=== PATIENT | female | born 1955 | race Caucasian/White ===

== ENCOUNTER 2016-09-24 14:16 | Outpatient (CLI) | payer MEDICARE | END 2016-09-24 14:17 | disposition critical access hospital (66) | DX: M54.9 Dorsalgia, unspecified (principal) | CPT/HCPCS: A0425; A0429 ==

== ENCOUNTER 2016-09-24 14:31 | Emergency (ER) | payer MEDICARE ==
[2016-09-24] MEDS ORDERED: HYDROmorphone 1 MG/ML SYRINGE IVP STA ×2 (14:39→16:25)
[2016-09-24] MEDS ORDERED: diazePAM INJ 5 MG/ML SYRINGE IVP STA (14:39)
[2016-09-24] MEDS ORDERED: HYDROmorphone 1 MG/ML SYRINGE ONE ×2 (14:46→16:41)
[2016-09-24] MEDS ORDERED: diazePAM INJ 5 MG/ML SYRINGE ONE (14:46)
[2016-09-24] MEDS ORDERED: LIDOCAINE PATCH 5% TOP STA (15:38)
[2016-09-24] MEDS ORDERED: DEXAMETHASONE 10 MG/ML VIAL IVP STA (15:38)
[2016-09-24] MEDS ORDERED: DEXAMETHASONE 10 MG/ML VIAL ONE (15:39)
[2016-09-24] MEDS ORDERED: LIDOCAINE PATCH 5% TOP ONE (15:39)
== END 2016-09-24 18:06 | disposition home or self-care (01) ==
DX: M54.5 Low back pain (principal); M06.9 Rheumatoid arthritis, unspecified; M19.90 Unspecified osteoarthritis, unspecified site; I11.0 Hypertensive heart disease with heart failure; I50.9 Heart failure, unspecified; Z87.891 Personal history of nicotine dependence; Z79.82 Long term (current) use of aspirin; Z66 Do not resuscitate
CPT/HCPCS: 96374; 96375; 96376; 99283; 99284; A9270; J1170

== ENCOUNTER 2016-10-18 01:16 | Outpatient (CLI) | payer MEDICARE | END 2016-10-18 01:17 | disposition home or self-care (01) | DX: M54.5 Low back pain (principal) | CPT/HCPCS: A0425; A0429 ==

== ENCOUNTER 2016-10-18 01:28 | Emergency (ER) | payer MEDICARE ==
[2016-10-18] MEDS ORDERED: oxyCOD/ACETAMIN 5 MG/325 MG TABLET PO STA (01:43)
[2016-10-18] MEDS ORDERED: KETOROLAC 60 MG/2 ML VIAL IM STA (01:43)
[2016-10-18] MEDS ORDERED: DEXAMETHASONE 10 MG/ML VIAL PO STA (01:43)
[2016-10-18] MEDS ORDERED: CYCLOBENZAPRINE 10 MG TABLET PO STA (01:43)
[2016-10-18] MEDS ORDERED: ONDANSETRON ODT 4 MG TABLET TL STA (01:45)
[2016-10-18] MEDS ORDERED: KETOROLAC 60 MG/2 ML VIAL ONE (01:47)
[2016-10-18] MEDS ORDERED: DEXAMETHASONE 10 MG/ML VIAL ONE (01:47)
[2016-10-18] MEDS ORDERED: oxyCOD/ACETAMIN 5 MG/325 MG TABLET PO ONE (01:47)
[2016-10-18] MEDS ORDERED: CHERRY SYRUP 10 ML UDC PO ONE (01:47)
[2016-10-18] MEDS ORDERED: ONDANSETRON ODT 4 MG TABLET ONE (01:47)
[2016-10-18] MEDS ORDERED: diazePAM 5 MG TABLET PO STA (01:49)
[2016-10-18] MEDS ORDERED: diazePAM 5 MG TABLET PO ONE (02:04)
[2016-10-18] MEDS ORDERED: LIDOCAINE PATCH 5% TOP STA (02:12)
[2016-10-18] MEDS ORDERED: LIDOCAINE PATCH 5% TOP ONE (02:14)
--- NOTE | 2016-10-18 03:02 | ED Physician Documentation ---
PD HPI BACK PAIN - Stated complaint Stated Complaint: BACK PX - Chief complaint Chief Complaint: Back Pain - History obtained from History obtained from: Patient, EMS - History of Present Illness Timing - onset: Chronic Timing - details: Gradual onset, Still present Quality: Pain, Spasm, Aching, Similar to prior episodes Associated symptoms: No: Fever, Weakness, Incontinent of urine, Unable to urinate, Incontinent of stool Improves with: Position, Meds Worsened by: Movement, Lifting, Twisting, Palpation Contributing factors: Out of meds Similar symptoms before: Work up / diagnostics, Treatment, Follow up Recently seen: Not recently seen - Additional information Additional information: Patient is a 61 year old female with multi year history of chronic back pain who is presenting to the emergency department for an exacerbation of her pain. patient states that she was fired by her pmd and she has been able Review of Systems Constitutional: denies: Fever, Chills Eyes: denies: Decreased vision, Photophobia Ears: denies: Ear pain, Drainage/discharge Nose: denies: Rhinorrhea / runny nose, Congestion Throat: denies: Dental pain / toothache, Oral lesions / sores Cardiac: denies: Chest pain / pressure Respiratory: denies: Cough, Wheezing GI: denies: Abdominal Pain, Nausea, Vomiting, Constipation, Diarrhea : denies: Dysuria, Frequency, Hesitancy, Unable to Void, Incontinent Skin: denies: Rash, Lesions, Abrasion (s) Musculoskeletal: reports: Extremity pain, Joint pain Neurologic: reports: Focal weakness, Numbness Psychiatric: reports: Depressed, Anxiety Immunocompromised: denies: Immunocompromised PD PAST MEDICAL HISTORY - Past Medical History Cardiovascular: Congestive heart failure, Hypertension Respiratory: Other Neuro: None, Other Endocrine/Autoimmune: None GI: GERD, Colon polyps, Chronic diarrhea, Other : Incontinence HEENT: Chronic sinusitis Psych: Depression Musculoskeletal: Osteoarthritis - Past Surgical History Past Surgical History: Yes General: Cholecystectomy, Appendectomy, Bowel surgery, Other Ortho: Knee replacement /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, Oophrectomy Cardiovascular: Cardiac catheterization HEENT: Tonsil/Adenoidectomy - Present Medications Home Medications: Ambulatory Orders Medication Instructions Recorded Confirmed Alprazolam 0.5 mg PO HS 05/29/13 10/18/16 Aspirin [Aspirin EC] 650 mg PO TID 05/29/13 10/18/16 Cholecalciferol (Vitamin D3) 1,000 unit PO HS 05/29/13 10/18/16 [Vitamin D3] FLUoxetine [PROzac] 20 mg PO DAILY 05/29/13 10/18/16 Furosemide [Lasix] 40 mg PO DAILY PRN 05/29/13 10/18/16 Metoprolol Tartrate 50 mg PO DAILY 05/29/13 10/18/16 Metoprolol Tartrate 100 mg PO HS 05/29/13 10/18/16 Potassium Chloride 20 meq PO DAILY PRN 05/29/13 10/18/16 Sulfasalazine [Sulfazine] 1,500 mg PO BID 05/29/13 10/18/16 Vitamin B Complex 1 each PO DAILY 05/29/13 10/18/16 predniSONE [Deltasone] 5 mg PO DAILY 05/29/13 10/18/16 Esomeprazole Magnesium [Nexium] 40 mg PO DAILY 05/01/14 10/18/16 Lactobacillus Acidophilus 1 each PO DAILY 05/01/14 10/18/16 [Probiotic] diphenhydrAMINE [Benadryl] 25 mg PO HS 05/01/14 10/18/16 Fluticasone 220 Mcg [Flovent] 1 spray IH DAILY 08/07/14 10/18/16 Hydroxyzine HCl 25 mg PO QID 08/07/14 10/18/16 Mupirocin 2% Oint [Bactroban 2% 1 applic TOP BID 08/07/14 10/18/16 Oint] Nystatin 1 each TOP DAILY 08/07/14 10/18/16 Zinc 50 mg PO BID 08/07/14 10/18/16 Lidocaine Patch 5% [Lidoderm Patch] 1 each TOP DAILY #20 patch 09/24/16 10/18/16 Pramipexole [Mirapex] 0.25 mg PO HS #30 tablet 09/24/16 10/18/16 diazePAM [Valium] 5 mg PO TID PRN #15 tablet 09/24/16 10/18/16 Esomeprazole Magnesium [Nexium] 20 mg PO DAILY #30 capsule. 10/18/16 Hydrocodone/Acetaminophen 1 - 2 each PO Q6H PRN #14 tablet 10/18/16 [Hydrocodon-Acetaminophen 5-325] - Allergies Allergies/Adverse Reactions: Allergies Allergy/AdvReac Type Severity Reaction Status Date / Time droperidol [From Inapsine] Allergy Severe EPS Verified 10/18/16 01:38 ibuprofen [From Motrin] Allergy Severe Anaphylaxis Verified 10/18/16 01:38 peanut Allergy Severe Anaphylaxis Verified 10/18/16 01:38 shellfish derived Allergy Severe Anaphylaxis Verified 10/18/16 01:38 Kaupebl-Tnr-Ieh Reductase Allergy Severe muscle pain Verified 10/18/16 01:38 Inhibitor amoxicillin [Amoxicillin] Allergy Intermediate Hives Verified 10/18/16 01:38 cefazolin Allergy Intermediate Hives Verified 10/18/16 01:38 Cephalosporins Allergy Intermediate Hives Verified 10/18/16 01:38 clindamycin Allergy Intermediate Hives Verified 10/18/16 01:38 cyclobenzaprine Allergy Intermediate Hives/night Verified 10/18/16 01:38 [Cyclobenzaprine] castaneda erythromycin base Allergy Intermediate Hives Verified 10/18/16 01:38 [Erythromycin Base] potassium clavulanate * Allergy Intermediate Hives Verified 10/18/16 01:38 [From Augmentin] ketorolac tromethamine * Allergy Anaphylaxis Verified 10/18/16 01:49 [From Toradol] duloxetine AdvReac Severe Suicidal Verified 10/18/16 01:38 etanercept [From Enbrel] AdvReac Severe Nausea/vomm Verified 10/18/16 01:38 iting/cramp s methotrexate AdvReac Severe N/V/Cramps Verified 10/18/16 01:38 NSAIDS (Non-Steroidal AdvReac Severe N/V/Cramps Verified 10/18/16 01:38 Anti-Inflamma prochlorperazine AdvReac Severe EPS Verified 10/18/16 01:38 pseudoephedrine AdvReac Severe Tachycardia Verified 10/18/16 01:38 sumatriptan AdvReac Severe Widened QRS Verified 10/18/16 01:38 doxycycline AdvReac Intermediate Hives Verified 10/18/16 01:38 gabapentin AdvReac Intermediate Gait Verified 10/18/16 01:38 disturbance latex AdvReac Intermediate Sensitivity Verified 10/18/16 01:38 Tape AdvReac Severe Blisters Uncoded 10/18/16 01:38 - Social History Does the pt smoke?: No Smoking Status: Former smoker Does the pt drink ETOH?: Yes Does the pt have substance abuse?: No - Immunizations Immunizations are current?: Yes - POLST Patient has POLST: Yes POLST Status: DNR PD ED PE NORMAL - Vitals Vital signs reviewed: Yes - General General: Alert and oriented X 3 - HEENT HEENT: Atraumatic, PERRL, Pharynx benign - Neck Neck: Supple, no meningeal sign, No bony TTP, No JVD - Respiratory Respiratory: No respiratory distress - Derm Derm: Normal color, Warm and dry, No rash PD ED PE EXPANDED - General General: Alert, Disheveled, poorly kept, Anxious, In Pain - Back Back: Soft tissue tenderness - Neuro Neuro: Other (no saddle numbness, patient able to ambulate with some pain, patient states that sensation is decreased and that she has intermittent numbness). No: Aphasia, Dysarthria - Psych Psych: Tearful, Anxious Results - Vitals Vitals: Vital Signs - 24 hr 10/18/16 10/18/16 10/18/16 01:33 01:36 02:24 Temperature 36.4 C L Heart Rate 81 87 Respiratory 18 18 Rate Blood Pressure 127/91 H 107/58 L O2 Saturation 98 94 10/18/16 03:59 Temperature Heart Rate 84 Respiratory 18 Rate Blood Pressure 146/82 H O2 Saturation 97 Oxygen O2 Source [Without Activity] Room air O2 Source Room air - Rads (name of study) ct lumbar spine Radiology: Final report received (no acute fracture or dislocation, foraminal stenosis), See rad report PD MEDICAL DECISION MAKING - ED course Complexity details: reviewed old records, reviewed results, re-evaluated patient , considered differential, d/w patient ED course: Patient was seen and examined at bedside. Patient was tearful and reported that she was having recurrent numbness in her right leg. Patient was treated with percocet, valium, decadron and zofran. Patient reported that her pain was not improving. Patient was treated with a lidocaine patch. Patient reported a persistence of pain. Due to the persistence and neurological findings CT was ordered. When patient returned the results were reviewed. there were no acute findings but patient did have foraminal stenosis. Patient was able to ambulate , and required no further inpatient management. Patient was stable for discharge with outpatient follow up. Departure - Departure Disposition: Home, Self Care Clinical Impression: Back pain, Foraminal stenosis of lumbosacral region Condition: Good Instructions: ED Chronic Pain Management Follow-Up: primary,care provider [Other] - Within 3 Days (call tomorrow to schedule a follow up appointment) Prescriptions: Hydrocodone/Acetaminophen [Hydrocodon-Acetaminophen 5-325] 1 - 2 each PO Q6H PRN #14 tablet PRN Reason: pain Esomeprazole Magnesium [Nexium] 20 mg PO DAILY #30 capsule. Comments: Your pain in part is being caused by foraminal stenosis. there is no specific treatment for it. You will need to continue with pain management and physical therapy. You should call your doctor's office on thursday to see if you can move up your appointment. You will eventually need to see pain management and possibly spine physician. You have been prescribed a few percocets for breakthrough pain. You should not take it with any other sedatives, you cannot drive on it or operate heavy machinery. You may return to the emergency department for new, worsening or uncontrollable symptoms.
--- NOTE | 2016-10-18 04:16 | CT Preliminary Report ---
Exam: CT Lumbar Spine W/O IMPRESSION: 1. No acute fracture or dislocation seen. 2. Minimal lumbar dextroscoliosis with grade 1 degenerative spondylolisthesis at L4-L5. 3. Bilateral foraminal stenosis at L3-L4. Right foraminal stenosis at L4-L5. [facility] SITE ID: [id number]
--- NOTE | 2016-10-18 04:19 | CT Report ---
EXAM: CT LUMBAR SPINE WITHOUT CONTRAST EXAM DATE: 10/18/2016 03:59 AM. CLINICAL HISTORY: Low back pain, right sided weakness. COMPARISONS: 08/07/2006. TECHNIQUE: Thin-section axial images were acquired of the lumbar spine without contrast. Post-process ing: Coronal and sagittal reformats. Other: None. In accordance with CT protocol optimization, one or more of the following dose reduction techniques w ere utilized for this exam: automated exposure control, adjustment of mA and/or KV based on patient s ize, or use of iterative reconstructive technique. FINDINGS: Alignment: Mild lumbar dextroscoliosis. Grade 1 degenerative spondylolisthesis at L4-L5. Bones: Five bvz-ocr-svkmynb lumbar vertebral bodies are present. Osteopenia. No acute fracture seen. Disk Levels/Facets: The height of the disk spaces is relatively well preserved. Degenerative joint disease is seen in the facet joints, most severe from L3-S1. There is right foraminal stenosis at L3-L4 and L4-L5. Left for aminal stenosis is seen at L3-L4. Other: The visualized pelvic cavity is unremarkable. IMPRESSION: 1. No acute fracture or dislocation seen. 2. Minimal lumbar dextroscoliosis with grade 1 degenerative spondylolisthesis at L4-L5. 3. Bilateral foraminal stenosis at L3-L4. Right foraminal stenosis at L4-L5. [facility] Referring Provider Line: [phone] SITE ID: [id number]
[2016-10-18 04:57] VITALS: BP 133/80
== END 2016-10-18 04:57 | disposition home or self-care (01) ==
LOC: EDUNIT# → ED 01:28
DX: M48.07 Spinal stenosis, lumbosacral region (principal); M47.897 Other spondylosis, lumbosacral region; M43.16 Spondylolisthesis, lumbar region; I11.0 Hypertensive heart disease with heart failure; I50.9 Heart failure, unspecified; Z87.891 Personal history of nicotine dependence; Z79.82 Long term (current) use of aspirin; Z66 Do not resuscitate
CPT/HCPCS: 72131; 99283; 99284; A9270; Q0162

== ENCOUNTER 2016-11-04 09:44 | Outpatient (CLI) | payer MEDICARE ==
[2016-11-04 12:54] LABS: BASOPHILS # (AUTO) 0.1 10^3/uL (0.0-0.1); BASOPHILS % (AUTO) 0.8 %; EOSINOPHILS # (AUTO) 0.2 10^3/uL (0.0-0.7); EOSINOPHILS % (AUTO) 1.6 %; HCT - HEMATOCRIT 41.3 % (37.0-47.0); HGB - HEMOGLOBIN 13.5 g/dL (12.0-16.0); LYMPHOCYTES # (AUTO) 2.2 10^3/uL (1.5-3.5); LYMPHOCYTES % (AUTO) 20.3 %; MEAN CORPUSCULAR HEMOGLOBIN 27.1 pg (27.0-31.0); MEAN CORPUSCULAR HGB CONC 32.6 g/dL (32.0-36.0); MEAN CORPUSCULAR VOLUME 83.2 fL (81.0-99.0); MEAN PLATELET VOLUME 8.6 fL (7.9-10.8); MONOCYTES # (AUTO) 0.8 10^3/uL (0.0-1.0); MONOCYTES % (AUTO) 7.7 %; NEUTROPHILS # (AUTO) 7.5 10^3/uL (1.5-6.6); NEUTROPHILS % (AUTO) 69.6 %; RED BLOOD COUNT 4.97 10^6/uL (4.20-5.40); RED CELL DISTRIBUTION WIDTH 19.7 % (12.0-15.0); UNCORRECTED WHITE BLOOD COUNT 10.8 x10^3/uL; WHITE BLOOD COUNT 10.8 x10^3/uL (4.8-10.8)
[2016-11-04 13:15] LABS: HEMOGLOBIN A1C 0.81 g/dL
[2016-11-04 13:25] LABS: ALBUMIN/GLOBULIN RATIO 1.2 (1.0-2.2); BILIRUBIN,TOTAL 0.3 mg/dL (0.2-1.0); BUN - BLOOD UREA NITROGEN 8 mg/dL (6-20); CALCIUM 8.3 mg/dL (8.5-10.3); CARBON DIOXIDE - CO2 29 mmol/L (21-32); CHLORIDE 99 mmol/L (101-111); CHOL/HDL RATIO 8.1 (<4.4); CHOLESTEROL 250 mg/dL; CREATININE 0.6 mg/dL (0.4-1.0); GFR - MDRD 102 (>89); GLUCOSE 136 mg/dL (70-100); HDL CHOLESTEROL 31 mg/dL; IRON 25 ug/dL (28-170); LDL/HDL RATIO 4.5 (<4.4); POTASSIUM 3.1 mmol/L (3.5-5.0); SODIUM 140 mmol/L (135-145); TOTAL IRON BINDING CAPACITY 437 ug/dL (250-450); TOTAL PROTEIN 6.1 g/dL (6.7-8.2); TRANSFERRIN 312 mg/dL (192-382); TRIGLYCERIDES 399 mg/dL; VLDL CHOLESTEROL 80 mg/dL
[2016-11-04 13:29] LABS: FERRITIN 20.5 ng/mL (11.0-306.8)
[2016-11-04 13:42] LABS: THYROID STIMULATING HORMONE 1.7 uIU/mL (0.34-5.60)
== END 2016-11-04 09:45 | disposition home or self-care (01) ==
LOC: LAB.WCP 09:44
PROVIDERS: ATTEND Family Medicine
DX: Z79.52 Long term (current) use of systemic steroids (principal); I10 Essential (primary) hypertension; G89.4 Chronic pain syndrome; D50.9 Iron deficiency anemia, unspecified; I49.3 Ventricular premature depolarization
CPT/HCPCS: 36415; 80053; 80061; 80306; 82607; 82728; 83036; 83540; 84443; 84466; 85025

== ENCOUNTER 2016-11-06 11:38 | Outpatient (CLI) | payer MEDICARE ==
--- NOTE | 2016-11-11 17:05 | Mammography Report ---
DIGITAL SCREENING MAMMOGRAM: 11/06/2016 CLINICAL INDICATION: A 61-year-old nulliparous patient with history of benign biopsy for screening. COMPARISON: 11/2014, 09/2013, 08/2011, 09/2008. TECHNIQUE: Routine CC and MLO projections were obtained of the breasts. FINDINGS: The breasts again demonstrate scattered fibroglandular densities bilaterally. Postoperati ve changes in the left lower inner quadrant are stable. Coarse and punctate, typically benign calcif ications are present. No suspicious masses, clustered microcalcifications, or regions of architectur al distortion are identified. IMPRESSION: BENIGN FINDINGS. RECOMMENDATION: Routine annual screening unless otherwise clinically indicated. BI-RADS category 2, benign findings. STANDARD QUALIFYING STATEMENTS 1. This examination was reviewed with the aid of Computer-Aided Detection (CAD). 2. A negative or benign imaging report should not delay biopsy if clinically suspicious findings are present. Consider surgical consultation if warranted. More than 5% of cancers are not identified by i maging. 3. Dense breasts may obscure an underlying neoplasm. JOB #: [id number] EXT JOB #:[id number]
== END 2016-11-06 11:39 | disposition home or self-care (01) ==
LOC: DI 11:38
PROVIDERS: ATTEND Family Medicine
DX: Z12.31 Encounter for screening mammogram for malignant neoplasm of breast (principal)
CPT/HCPCS: 77067

== ENCOUNTER 2016-11-18 18:58 | Outpatient (CLI) | payer MEDICARE ==
--- NOTE | 2016-11-19 09:08 | Ultrasound Report ---
RIGHT UPPER QUADRANT ULTRASOUND: 11/18/2016 CLINICAL INDICATION: Right upper quadrant pain. TECHNIQUE: Real-time scanning was performed with access service representative static images obtained. FINDINGS: The liver measures 18.8 cm. Hepatic echogenicity is increased, compatible with fatty infi ltration. No focal parenchymal lesion or intrahepatic biliary dilatation is seen. The common bile d uct measures 6 mm. The patient is status post cholecystectomy. The right kidney measures 12.2 cm, a nd demonstrates no hydronephrosis. No free fluid is seen. IMPRESSION: FATTY INFILTRATION OF THE LIVER. NO EVIDENCE OF BILIARY OBSTRUCTION. JOB #: [id number] EXT JOB #:[id number]
== END 2016-11-18 18:59 | disposition home or self-care (01) ==
LOC: DI 18:58
PROVIDERS: ATTEND Family Medicine
DX: K76.0 Fatty (change of) liver, not elsewhere classified (principal)
CPT/HCPCS: 76705

== ENCOUNTER 2016-11-20 10:11 | Outpatient (CLI) | payer MEDICARE ==
--- NOTE | 2016-11-20 16:19 | DEXA Report ---
DEXA SCAN: 11/20/2016 CLINICAL INDICATION: Postmenopausal patient, long-term steroid use. TECHNIQUE: Dual energy x-ray absorptiometry (DXA) was performed on a [employer] system. Regions measured are the AP spine, femoral neck, and, if needed, forearm. COMPARISON: None. In accordance with the International Society for Clinical Densitometry (ISCD) guidelines, data from previous exams may be reanalyzed using current recommendations and techniques. This is done to allow a more accurate basis for comparison with the current study. FINDINGS: The data for the lumbar spine is as follows: REGION BMD (g/cm/cm) T-SCORE Z-SCORE L1 1.019 -0.9 -0.9 L2 0.914 -2.4 -2.3 L3 1.068 -1.1 -1.0 L4 1.122 -0.7 -0.6 TOTAL 1.040 -1.2 -1.1 NOTE: All evaluable vertebrae are used for classification. The data for the hip is as follows: REGION BMD (g/cm/cm) T-SCORE Z-SCORE Neck 1.089 0.4 0.9 TOTAL 1.170 1.3 1.4 NOTE: The femoral neck or total proximal femur, whichever is lowest, is used for classification. * Denotes significant change at the 95% confidence level. Denotes dissimilar scan types or analysis methods. IMPRESSION: THE WHO CLASSIFICATION BASED ON THE INTERNATIONAL REFERENCE STANDARD IS OSTEOPENIA. THE FRACTURE RISK IS INCREASED. RECOMMENDATION: Patients with diagnosis of osteoporosis or osteopenia should have regular bone mineral density assessment. For those eligible for Medicare, routine testing is allowed once every 2 years. Testing frequency can be increased for patients who have rapidly progressing disease or for those who are receiving medical therapy to restore bone mass. COMMENT: World Health Organization (WHO) definitions for osteoporosis and osteopenia: NORMAL BMD: T-score at -1.0 or higher, fracture risk is low. OSTEOPENIA BMD: T-score between -1.0 and -2.5, fracture risk is increased. OSTEOPOROSIS BMD: T-score at -2.5 or lower, fracture risk high. National Osteoporosis Foundation recommends: 1. Obtain adequate dietary calcium (at least 1200 mg per day) and vitamin D (400 -800 international units per day). 2. Participate, as appropriate, in regular weightbearing and muscle- strengthening exercise. 3. Avoid tobacco use and reduce alcohol and caffeine intake. 4. For more detailed information see the website at www.NOF.org. MTDD
== END 2016-11-20 10:12 | disposition home or self-care (01) ==
LOC: DI 10:11
PROVIDERS: ATTEND Family Medicine
DX: M85.88 Other specified disorders of bone density and structure, other site (principal)
CPT/HCPCS: 77080

== ENCOUNTER 2017-01-06 23:02 | Outpatient (CLI) | payer MEDICARE | END 2017-01-06 23:03 | disposition critical access hospital (66) | LOC: EMS 23:02 | PROVIDERS: ATTEND Surgery | DX: T50.902A Poisoning by unspecified drugs, medicaments and biological substances, intentional self-harm, initial encounter (principal) | CPT/HCPCS: A0425; A0427 ==

== ENCOUNTER 2017-01-06 23:12 | Inpatient (IN) | payer MEDICARE ==
[2017-01-06] MEDS ORDERED: CHARCOAL ACTIVATED 25 GM/120 ML BOTTLE PO STA (23:42)
[2017-01-06] MEDS ORDERED: CHARCOAL/SORBITOL 50 GM/240 ML PO ONE (23:45)
[2017-01-07] MEDS ORDERED: ONDANSETRON 4 MG/2 ML VIAL IVP STA (00:07)
[2017-01-07 00:16] LABS: BASOPHILS # (AUTO) 0.1 10^3/uL (0.0-0.1); BASOPHILS % (AUTO) 1.2 %; EOSINOPHILS # (AUTO) 0.1 10^3/uL (0.0-0.7); EOSINOPHILS % (AUTO) 1.3 %; HCT - HEMATOCRIT 42.2 % (37.0-47.0); HGB - HEMOGLOBIN 13.6 g/dL (12.0-16.0); LYMPHOCYTES # (AUTO) 2.6 10^3/uL (1.5-3.5); MEAN CORPUSCULAR HEMOGLOBIN 26.1 pg (27.0-31.0); MEAN CORPUSCULAR HGB CONC 32.2 g/dL (32.0-36.0); MEAN CORPUSCULAR VOLUME 81.1 fL (81.0-99.0); MEAN PLATELET VOLUME 7.6 fL (7.9-10.8); MONOCYTES # (AUTO) 0.8 10^3/uL (0.0-1.0); MONOCYTES % (AUTO) 7.2 %; NEUTROPHILS # (AUTO) 6.8 10^3/uL (1.5-6.6); NEUTROPHILS % (AUTO) 65.3 %; RED BLOOD COUNT 5.21 10^6/uL (4.20-5.40); UNCORRECTED WHITE BLOOD COUNT 10.5 x10^3/uL; WHITE BLOOD COUNT 10.5 x10^3/uL (4.8-10.8)
[2017-01-07] MEDS ORDERED: SODIUM CHLORIDE 0.9% 1,000 ML IV ONE ×3 (00:38→02:05)
[2017-01-07 00:39] LABS: ACETAMINOPHEN < 10 ug/mL (10-30); ALBUMIN/GLOBULIN RATIO 1.1 (1.0-2.2); BILIRUBIN,TOTAL 0.5 mg/dL (0.2-1.0); BUN - BLOOD UREA NITROGEN 11 mg/dL (6-20); CALCIUM 8.4 mg/dL (8.5-10.3); CARBON DIOXIDE - CO2 26 mmol/L (21-32); CHLORIDE 102 mmol/L (101-111); CREATININE 0.8 mg/dL (0.4-1.0); GFR - MDRD 73 (>89); GLUCOSE 119 mg/dL (70-100); LIPASE 43 U/L (22-51); POTASSIUM 3.2 mmol/L (3.5-5.0); SALICYLATE < 6.0 mg/dL; SODIUM 141 mmol/L (135-145); TOTAL PROTEIN 7.2 g/dL (6.7-8.2)
[2017-01-07] MEDS ORDERED: ONDANSETRON 4 MG/2 ML VIAL ONE (00:39)
[2017-01-07 00:40] LABS: MAGNESIUM 0.8 mg/dL (1.7-2.8)
[2017-01-07] MEDS ORDERED: POTASSIUM CHLOR 20 MEQ/100 ML 100 ML IV ONE (00:41)
[2017-01-07] MEDS ORDERED: MAGNESIUM SULFATE 1 GM/2 ML VIAL IVP STA (00:41)
[2017-01-07] MEDS ORDERED: POTASSIUM CHLOR 10 MEQ/100 ML 100 ML IV ONE ×4 (00:58→02:11)
[2017-01-07] MEDS ORDERED: MAGNESIUM SULFATE 2 GRAM 50 ML IV ONE (01:02)
[2017-01-07] MEDS ORDERED: MAGNESIUM SULFATE 2 GM in SODIUM CHLORIDE 0.9% 50 ML IV ONE (02:05)
[2017-01-07] MEDS ORDERED: GLUCAGON 1 MG/ML VIAL IVP STA (02:21)
--- NOTE | 2017-01-07 02:21 | ED Physician Documentation ---
PD HPI OVERDOSE - Stated complaint Stated Complaint: OD - Chief complaint Chief Complaint: MHE - History obtained from History obtained from: Patient, EMS - History of Present Illness Timing - onset: Today Subtance(s) ingested: Multiple, Diabetes med, Cardiac med Associated symptoms: No: Cardiac arrest, Resp depression, Resp arrest, Unresponsive, Altered mental status Contributing factors: Depresssed, Suicidal Similar symptoms before: Has not had sx before Recently seen: Not recently seen - Additional information Additional information: Patient is a 61 year old female with a history of muliple comorbidities, including chronic pain who is presenting to the emergency department for an overdose in a suicide attempt. Patient states that she has not been able to get any pain medications. including from the ER and primary. Patient states that she cannot take it anymore and that she wants to . Patient reports that she took a handful of her medicaitions,including beta blockers and metformin. Patient is unsure of the specific amounts but thinks she had more metformin and a few blood pressure medications. Review of Systems Constitutional: denies: Fever, Chills Eyes: denies: Decreased vision, Photophobia Ears: denies: Ear pain, Drainage/discharge Nose: denies: Rhinorrhea / runny nose, Congestion Throat: denies: Sore throat Cardiac: denies: Chest pain / pressure, Palpitations Respiratory: denies: Cough GI: reports: Abdominal Pain, Nausea, Vomiting, Diarrhea. denies: Constipation : denies: Dysuria, Frequency, Hesitancy, Unable to Void Psychiatric: reports: Depressed, Suicidal PD PAST MEDICAL HISTORY - Past Medical History Cardiovascular: Congestive heart failure, Hypertension Respiratory: Other Neuro: None, Other Endocrine/Autoimmune: None GI: GERD, Colon polyps, Chronic diarrhea, Other : Incontinence HEENT: Chronic sinusitis Psych: Depression Musculoskeletal: Osteoarthritis - Past Surgical History Past Surgical History: Yes General: Cholecystectomy, Appendectomy, Bowel surgery, Other Ortho: Knee replacement /HAND II TUBE BENDER: 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, Oophrectomy Cardiovascular: Cardiac catheterization HEENT: Tonsil/Adenoidectomy - Present Medications Home Medications: Ambulatory Orders Medication Instructions Recorded Confirmed Alprazolam 0.5 mg PO HS 05/29/13 10/18/16 Aspirin [Aspirin EC] 650 mg PO TID 05/29/13 10/18/16 Cholecalciferol (Vitamin D3) 1,000 unit PO HS 05/29/13 10/18/16 [Vitamin D3] FLUoxetine [PROzac] 20 mg PO DAILY 05/29/13 10/18/16 Furosemide [Lasix] 40 mg PO DAILY PRN 05/29/13 10/18/16 Metoprolol Tartrate 50 mg PO DAILY 05/29/13 10/18/16 Metoprolol Tartrate 100 mg PO HS 05/29/13 10/18/16 Potassium Chloride 20 meq PO DAILY PRN 05/29/13 10/18/16 Sulfasalazine [Sulfazine] 1,500 mg PO BID 05/29/13 10/18/16 Vitamin B Complex 1 each PO DAILY 05/29/13 10/18/16 predniSONE [Deltasone] 5 mg PO DAILY 05/29/13 10/18/16 Esomeprazole Magnesium [Nexium] 40 mg PO DAILY 05/01/14 10/18/16 Lactobacillus Acidophilus 1 each PO DAILY 05/01/14 10/18/16 [Probiotic] diphenhydrAMINE [Benadryl] 25 mg PO HS 05/01/14 10/18/16 Fluticasone 220 Mcg [Flovent] 1 spray IH DAILY 08/07/14 10/18/16 Hydroxyzine HCl 25 mg PO QID 08/07/14 10/18/16 Mupirocin 2% Oint [Bactroban 2% 1 applic TOP BID 08/07/14 10/18/16 Oint] Nystatin 1 each TOP DAILY 08/07/14 10/18/16 Zinc 50 mg PO BID 08/07/14 10/18/16 Lidocaine Patch 5% [Lidoderm Patch] 1 each TOP DAILY #20 patch 09/24/16 10/18/16 Pramipexole [Mirapex] 0.25 mg PO HS #30 tablet 09/24/16 10/18/16 diazePAM [Valium] 5 mg PO TID PRN #15 tablet 09/24/16 10/18/16 Esomeprazole Magnesium [Nexium] 20 mg PO DAILY #30 capsule. 10/18/16 Hydrocodone/Acetaminophen 1 - 2 each PO Q6H PRN #14 tablet 10/18/16 [Hydrocodon-Acetaminophen 5-325] - Allergies Allergies/Adverse Reactions: Allergies Allergy/AdvReac Type Severity Reaction Status Date / Time droperidol [From Inapsine] Allergy Severe EPS Verified 10/18/16 01:38 ibuprofen [From Motrin] Allergy Severe Anaphylaxis Verified 10/18/16 01:38 peanut Allergy Severe Anaphylaxis Verified 10/18/16 01:38 shellfish derived Allergy Severe Anaphylaxis Verified 10/18/16 01:38 [id number]-[id number] Reductase Allergy Severe muscle pain Verified 10/18/16 01:38 Inhibitor amoxicillin [Amoxicillin] Allergy Intermediate Hives Verified 10/18/16 01:38 cefazolin Allergy Intermediate Hives Verified 10/18/16 01:38 Cephalosporins Allergy Intermediate Hives Verified 10/18/16 01:38 clindamycin Allergy Intermediate Hives Verified 10/18/16 01:38 cyclobenzaprine Allergy Intermediate Hives/night Verified 10/18/16 01:38 [Cyclobenzaprine] castaneda erythromycin base Allergy Intermediate Hives Verified 10/18/16 01:38 [Erythromycin Base] potassium clavulanate * Allergy Intermediate Hives Verified 10/18/16 01:38 [From Augmentin] ketorolac tromethamine * Allergy Anaphylaxis Verified 10/18/16 01:49 [From Toradol] duloxetine AdvReac Severe Suicidal Verified 10/18/16 01:38 etanercept [From Enbrel] AdvReac Severe Nausea/vomm Verified 10/18/16 01:38 iting/cramp s methotrexate AdvReac Severe N/V/Cramps Verified 10/18/16 01:38 NSAIDS (Non-Steroidal AdvReac Severe N/V/Cramps Verified 10/18/16 01:38 Anti-Inflamma prochlorperazine AdvReac Severe EPS Verified 10/18/16 01:38 pseudoephedrine AdvReac Severe Tachycardia Verified 10/18/16 01:38 sumatriptan AdvReac Severe Widened QRS Verified 10/18/16 01:38 doxycycline AdvReac Intermediate Hives Verified 10/18/16 01:38 gabapentin AdvReac Intermediate Gait Verified 10/18/16 01:38 disturbance latex AdvReac Intermediate Sensitivity Verified 10/18/16 01:38 Tape AdvReac Severe Blisters Uncoded 10/18/16 01:38 - Social History Does the pt smoke?: No Smoking Status: Former smoker Does the pt drink ETOH?: Yes Does the pt have substance abuse?: No - Immunizations Immunizations are current?: Yes - POLST Patient has POLST: Yes POLST Status: DNR PD ED PE NORMAL - Vitals Vital signs reviewed: Yes - General General: Alert and oriented X 3, Well developed/nourished - HEENT HEENT: Atraumatic, PERRL - Neck Neck: Supple, no meningeal sign, No bruit - Cardiac Cardiac: RRR, No murmur - Respiratory Respiratory: No respiratory distress - Abdomen Abdomen: Soft, Non distended - Derm Derm: Normal color, Warm and dry - Extremities Extremities: No deformity - Neuro Neuro: Alert and oriented X 3, No motor deficit, No sensory deficit PD ED PE EXPANDED - General General: Alert, Anxious - HEENT HEENT: Atraumatic, PERRL, Dry mucous membranes. No: Head injury - Respiratory Respiratory: Clear to ausultation emelina. No: Distress, Labored - Extremities Extremities: Right knee (ulceration of right knee) - Psych Psych: Depressed, Suicidal, Homicidal Results - Vitals Vitals: Vital Signs - 24 hr 01/06/17 01/07/17 01/07/17 23:12 00:04 00:10 Temperature 36.3 C L Heart Rate 94 74 67 Respiratory 22 16 21 Rate Blood Pressure 105/59 L 133/86 H 79/49 L O2 Saturation 95 99 99 01/07/17 01/07/17 01/07/17 00:21 00:30 01:07 Temperature Heart Rate 68 65 61 Respiratory 18 22 20 Rate Blood Pressure 87/35 L 87/35 L 94/54 L O2 Saturation 98 99 01/07/17 01/07/17 01/07/17 01:14 01:22 01:30 Temperature Heart Rate 63 63 65 Respiratory 24 21 18 Rate Blood Pressure 91/53 L 88/51 L 87/53 L O2 Saturation 95 95 01/07/17 01/07/17 01/07/17 01:32 02:21 02:23 Temperature Heart Rate 65 65 57 L Respiratory 16 28 H Rate Blood Pressure 90/57 L 84/69 L 74/41 L O2 Saturation 97 95 Oxygen O2 Source [Without Activity] Room air O2 Source Room air - Labs Labs: Laboratory Tests 01/06/17 01/06/17 01/06/17 00:09 00:09 00:09 WBC 10.5 RBC 5.21 Hgb 13.6 Hct 42.2 MCV 81.1 MCH 26.1 L MCHC 32.2 RDW 19.0 H Plt Count 410 MPV 7.6 L Neut # 6.8 H Lymph # 2.6 [place] # 0.8 Eos # 0.1 Baso # 0.1 Absolute Nucleated RBC 0.00 Nucleated RBCs 0.0 Sodium 141 Potassium 3.2 L Chloride 102 Carbon Dioxide 26 Anion Gap 13.0 BUN 11 Creatinine 0.8 Estimated GFR (MDRD) 73 L Glucose 119 H Lactic Acid Calcium 8.4 L Phosphorus 4.0 Magnesium 0.8 L* Total Bilirubin 0.5 AST 23 ALT 18 Alkaline Phosphatase 85 Troponin I < 0.04 Total Protein 7.2 Albumin 3.8 Globulin 3.4 Albumin/Globulin Ratio 1.1 Lipase 43 TSH Salicylates < 6.0 Acetaminophen < 10 L Ethyl Alcohol < 5.0 01/06/17 01/06/17 00:09 00:09 WBC RBC Hgb Hct MCV MCH MCHC RDW Plt Count MPV Neut # Lymph # [place] # Eos # Baso # Absolute Nucleated RBC Nucleated RBCs Sodium Potassium Chloride Carbon Dioxide Anion Gap BUN Creatinine Estimated GFR (MDRD) Glucose Lactic Acid 3.7 H* Calcium Phosphorus Magnesium Total Bilirubin AST ALT Alkaline Phosphatase Troponin I Total Protein Albumin Globulin Albumin/Globulin Ratio Lipase TSH 6.36 H Salicylates Acetaminophen Ethyl Alcohol Procedures - Central Line Central Line Preparation: Consent Obtained, Ultrasound used Central line location: Right IJ Central line type: Double lumen Central line aftercare: Chlorhexidine disc placed, Secured, Placement confirmed , No complications, Bundle checklist complete, Pt tolerated well, Other PD MEDICAL DECISION MAKING - ED course Complexity details: reviewed old records, reviewed results, re-evaluated patient , considered differential ED course: Patient was seen and examined at bedside. Patient was awake, alert and mentating. Patinent stated hat she was normally 102 systolics. Poison control was contacted and they recommended activated charcoal which was given to the patient. ekg was perfromed and showed sinus tach. Patient was treated with liter bolus, and then subsequent second bolus. Patient's blood pressure was tenuous so it was decedid to admit the patient. patient's electrolytes were replenished. Patient was started on a third liter and admitted to the icu for further evaluation and care. - Critical Care Time(min): 30 Time Includes: Direct patient care, Review records, Reassess patient, Coordinate care Data interpretation: Labs, Prior EKG, Cardiac output, See progress note Procedures included in critical care time: Peripheral IV Departure - Departure Disposition: 66 [facility] DC/Xfer Clinical Impression: Medication overdose Condition: Critical
[2017-01-07] MEDS ORDERED: POTASSIUM CHLORIDE 10 MEQ CAPSULE PO PRN (02:27)
[2017-01-07] MEDS ORDERED: NON FORMULARY MED (Cholecalciferol (Vitamin D3) [Vitamin D3] 1,000 UNIT) PO SCH (02:30)
[2017-01-07] MEDS ORDERED: NON FORMULARY MED (Alprazolam [Alprazolam] 0.5 MG) PO SCH (02:30)
[2017-01-07] MEDS ORDERED: ALBUTEROL NEB 2.5 MG/3 ML INH PRN (02:31)
[2017-01-07] MEDS ORDERED: ZOLPIDEM 5 MG TABLET PO PRN (02:31)
[2017-01-07] MEDS ORDERED: ACETAMINOPHEN 325 MG TABLET PO PRN (02:31)
[2017-01-07] MEDS ORDERED: PROMETHAZINE 25 MG/1 ML VIAL IM PRN (02:31)
[2017-01-07] MEDS ORDERED: PROCHLORPERAZINE 10 MG/2 ML VIAL IVP PRN (02:31)
[2017-01-07] MEDS ORDERED: GLUCAGON 1 MG/ML VIAL ONE (02:32)
[2017-01-07] MEDS ORDERED: WATER FOR INJECTION,STERILE 10 ML ONE (02:33)
--- NOTE | 2017-01-07 03:49 | XRAY Preliminary Report ---
Exam: XR Chest for Line Placement IMPRESSION: 1. Right central catheter tip in the lower third SVC. 2. Borderline fluid overload. [facility] SITE ID: [id number]
--- NOTE | 2017-01-07 03:52 | XRAY Report ---
EXAM: CHEST RADIOGRAPHY EXAM DATE: 01/07/2017 03:30 AM. CLINICAL HISTORY: Central line placement. COMPARISON: 11/13/2016, CT 08/13/2015. TECHNIQUE: 1 view. FINDINGS: Lungs/Pleura: Vascular congestion without overt edema. No gross pneumothorax or large effusion. Mediastinum: Borderline heart size. No mediastinal shift. Other: Right central catheter tip in the lower third SVC. IMPRESSION: 1. Right central catheter tip in the lower third SVC. 2. Borderline fluid overload. [facility] Referring Provider Line: [phone] SITE ID: [id number]
[2017-01-07 04:07] LABS: BILIRUBIN,URINE NEGATIVE (NEGATIVE); PH,URINE 6.5 PH (5.0-7.5)
[2017-01-07 04:10] LABS: UA w/ MICROSCOPIC CHARGE YES
[2017-01-07 04:14] LABS: UR CULTURE IF IND NOT INDICATED; WBC,URINE 0-3 /HPF (0-5)
[2017-01-07] MEDS: PRAMIPEXOLE 0.25 MG TABLET PO SCH ×2 (05:28→20:32)
[2017-01-07] MEDS: NS W/20 MEQ KCL 1,000 ML IV SCH ×2 (05:36→15:45)
[2017-01-07 05:51] LABS: BASOPHILS # (AUTO) 0.1 10^3/uL (0.0-0.1); BASOPHILS % (AUTO) 0.8 %; EOSINOPHILS # (AUTO) 0.1 10^3/uL (0.0-0.7); EOSINOPHILS % (AUTO) 0.8 %; HCT - HEMATOCRIT 36.2 % (37.0-47.0); HGB - HEMOGLOBIN 11.6 g/dL (12.0-16.0); LYMPHOCYTES # (AUTO) 1.4 10^3/uL (1.5-3.5); LYMPHOCYTES % (AUTO) 14.3 %; MEAN CORPUSCULAR HEMOGLOBIN 25.9 pg (27.0-31.0); MEAN CORPUSCULAR HGB CONC 31.9 g/dL (32.0-36.0); MEAN CORPUSCULAR VOLUME 81.2 fL (81.0-99.0); MEAN PLATELET VOLUME 7.5 fL (7.9-10.8); MONOCYTES # (AUTO) 0.7 10^3/uL (0.0-1.0); MONOCYTES % (AUTO) 7.4 %; NEUTROPHILS # (AUTO) 7.6 10^3/uL (1.5-6.6); NEUTROPHILS % (AUTO) 76.7 %; RED BLOOD COUNT 4.46 10^6/uL (4.20-5.40); RED CELL DISTRIBUTION WIDTH 19.5 % (12.0-15.0); UNCORRECTED WHITE BLOOD COUNT 9.8 x10^3/uL; WHITE BLOOD COUNT 9.8 x10^3/uL (4.8-10.8)
[2017-01-07 06:01] LABS: ALBUMIN/GLOBULIN RATIO 1.1 (1.0-2.2); BILIRUBIN,TOTAL 0.3 mg/dL (0.2-1.0); CALCIUM 7.3 mg/dL (8.5-10.3); CREATININE 0.9 mg/dL (0.4-1.0); MAGNESIUM 1.2 mg/dL (1.7-2.8); PHOSPHORUS 3.6 mg/dL (2.5-4.6); POTASSIUM 3.1 mmol/L (3.5-5.0); TOTAL PROTEIN 5.8 g/dL (6.7-8.2)
[2017-01-07 06:04] LABS: INR 1.2 (0.8-1.2); PT - PROTHROMBIN TIME 13.1 secs (9.9-12.6)
[2017-01-07] MEDS: SODIUM CHLORIDE FLUSH 0.9% 10 ML SYRINGE IVP SCH ×3 (06:07→20:34)
[2017-01-07] MEDS: ASPIRIN EC 325 MG TABLET PO SCH ×3 (06:10→20:52)
[2017-01-07] MEDS: PANTOPRAZOLE 40 MG TABLET PO SCH (06:28)
[2017-01-07] MEDS ORDERED: POTASSIUM CHLORIDE 20 MEQ TABLET PO SCH (06:55)
[2017-01-07] MEDS ORDERED: GLUCAGON 5 MG in DEXTROSE 5% 45 ML IV STA ×2 (06:57→07:10)
[2017-01-07 08:25] LABS: CALCIUM, IONIZED 0.93 mmol/L (1.15-1.33); VBG PH 7.314 (7.31-7.41)
[2017-01-07] MEDS: MAGNESIUM SULFATE 2 GRAM 50 ML IV SCH ×2 (08:45→10:03)
[2017-01-07] MEDS ORDERED: LACTOBACILLUS ACIDOPHILUS PO SCH (09:00)
[2017-01-07] MEDS: ONDANSETRON 4 MG/2 ML VIAL IVP PRN (09:11)
[2017-01-07] MEDS: ENOXAPARIN 40 MG/0.4 ML SYRINGE SUBQ SCH (10:05)
[2017-01-07] MEDS: NYSTATIN POWDER 15 GM TOP SCH (10:05)
[2017-01-07] MEDS: LIDOCAINE PATCH 5% TOP SCH (10:06)
[2017-01-07] MEDS: MUPIROCIN 2% OINT 1 GM TOP SCH ×2 (10:08→20:33)
[2017-01-07] MEDS: predniSONE 5 MG TABLET PO SCH (10:40)
[2017-01-07] MEDS: ZINC SULFATE 220 MG CAPSULE PO SCH (10:41)
[2017-01-07] MEDS: FLUoxetine 10 MG CAPSULE PO SCH (10:42)
[2017-01-07] MEDS: LACTOB/S.THERMOPHL/BIFIDO CAPSULE PO SCH (10:43)
[2017-01-07] MEDS: sulfaSALAzine 500 MG TABLET PO SCH ×2 (10:45→20:51)
[2017-01-07] MEDS ORDERED: CALCIUM GLUCONATE 2,000 MG in SODIUM CHLORIDE 0.9% 100ML 100 ML IV ONE (12:07)
[2017-01-07] MEDS: oxyCODONE 5 MG TABLET PO PRN ×2 (14:05→20:42)
[2017-01-07 17:17] LABS: VBG PH 7.337 (7.31-7.41)
[2017-01-07] MEDS ORDERED: MIN OIL/DIMETHICON/COCONUT OIL 92 GM TUBE TOP PRN (18:36)
--- NOTE | 2017-01-07 18:37 | PROVIDER PROGRESS NOTE ---
Assessment/Plan - Problem List (1) Medication overdose Qualifiers: Encounter type: subsequent encounter Injury intent: intentional self-harm Qualified Code(s): T50.902D - Poisoning by unspecified drugs, medicaments and biological substances, intentional self-harm, subsequent encounter Assessment/Plan: Pt no longer somnolent, she is cleared for mental health evaluation. (2) Bradycardia Assessment/Plan: Resolved, after 12 hours since charcoal gastric lavage and no furthet HR slowing meds given. - Current Meds Current Meds: Current Medications Generic Name Dose Route Start Last Admin Trade Name Freq PRN Reason Stop Dose Admin Aspirin 650 mg 01/07/17 06:00 01/07/17 14:53 Ecotrin PO Not Given TID RIVERA Enoxaparin Sodium 40 mg 01/07/17 09:00 01/07/17 10:05 Lovenox SUBQ Not Given DAILY RIVERA Fluoxetine HCl 20 mg 01/07/17 09:00 01/07/17 10:42 Prozac PO 20 mg DAILY RIVERA Administration Potassium Chloride/Sodium Chloride 1,000 mls @ 100 mls/hr 01/07/17 03:00 15:45 Normal Saline 0.9% W/20 Meq Kcl IV 100 mls/hr .Q10H RIVERA Administration Lactobacil/Bifidobact/Streptococcus 1 cap 01/07/17 08:00 01/07/17 10:43 Vsl#3 PO 1 cap DAILYWM RIVERA Administration Lidocaine 1 patch 01/07/17 09:00 01/07/17 10:06 Lidoderm Patch TOP 1 patch DAILY RIVERA Administration Mupirocin 1 applic 01/07/17 09:00 01/07/17 10:08 Bactroban 2% Oint TOP Not Given BID RIVERA Nystatin 1 applic 01/07/17 09:00 01/07/17 10:05 Nystop TOP 15 applic DAILY RIVERA Administration Ondansetron HCl 4 mg 01/07/17 02:31 01/07/17 09:11 Zofran Inj IVP 4 mg Q6HR PRN Administration Nausea / Vomiting Oxycodone HCl 5 mg 01/07/17 02:31 01/07/17 14:05 Roxicodone PO 5 mg Q4HR PRN Administration Pain 5 to 7 Pantoprazole Sodium 40 mg 01/07/17 07:00 01/07/17 06:28 Protonix PO Not Given QDAC RIVERA Vitamin B Complex 1 each 01/07/17 09:00 01/07/17 10:45 PO Not Given DAILY RIVERA Pramipexole Dihydrochloride 0.25 mg 01/07/17 03:00 01/07/17 05:28 Mirapex PO 0.25 mg HS RIVERA Administration Prednisone 5 mg 01/07/17 09:00 01/07/17 10:40 Deltasone PO 5 mg DAILY RIVERA Administration Sodium Chloride 10 ml 01/07/17 06:00 01/07/17 14:54 Normal Saline Flush 0.9% IVP 10 ml Q8HR RIVERA Administration Sulfasalazine 1,500 mg 01/07/17 09:00 01/07/17 10:45 Azulfidine PO Not Given BID RIVERA Zinc Sulfate 220 mg 01/07/17 09:00 01/07/17 10:41 PO 220 mg DAILY RIVERA Administration - Lab Result Fish Bone Diagrams: 01/07/17 05:35 01/07/17 05:35 Objective Vital Signs: Vital Signs - 24 hr 01/07/17 01/07/17 01/07/17 02:40 03:03 03:36 Temperature Heart Rate 63 63 64 Heart Rate [ Monitoring electrodes] Respiratory 26 H 18 17 Rate Blood Pressure 84/45 L 105/62 94/46 L Blood Pressure [Left Radial artery] Blood Pressure [Right Radial artery] O2 Saturation 91 L 92 92 01/07/17 01/07/17 01/07/17 04:20 05:00 06:00 Temperature 36.6 C Heart Rate Heart Rate [ 67 62 55 L Monitoring electrodes] Respiratory 22 22 27 H Rate Blood Pressure Blood Pressure [Left Radial artery] Blood Pressure 107/66 103/59 L 102/60 [Right Radial artery] O2 Saturation 93 92 01/07/17 01/07/17 01/07/17 07:09 08:00 09:00 Temperature 36.6 C Heart Rate Heart Rate [ 62 64 70 Monitoring electrodes] Respiratory 16 22 18 Rate Blood Pressure Blood Pressure [Left Radial artery] Blood Pressure 97/58 L 97/63 109/69 [Right Radial artery] O2 Saturation 94 95 92 01/07/17 01/07/17 01/07/17 10:00 11:00 12:00 Temperature 35.8 C L Heart Rate Heart Rate [ 61 57 L 60 Monitoring electrodes] Respiratory 24 17 16 Rate Blood Pressure Blood Pressure [Left Radial artery] Blood Pressure 87/62 L 102/68 [Right Radial artery] O2 Saturation 94 97 95 01/07/17 01/07/17 01/07/17 13:00 14:00 15:00 Temperature Heart Rate Heart Rate [ 61 60 62 Monitoring electrodes] Respiratory 22 25 H 14 Rate Blood Pressure Blood Pressure 111/70 [Left Radial artery] Blood Pressure 117/64 108/69 [Right Radial artery] O2 Saturation 95 89 L 95 01/07/17 01/07/17 01/07/17 16:00 16:59 18:00 Temperature 37 C Heart Rate Heart Rate [ 53 L 70 60 Monitoring electrodes] Respiratory 24 12 18 Rate Blood Pressure Blood Pressure 101/76 113/65 [Left Radial artery] Blood Pressure 96/58 L [Right Radial artery] O2 Saturation 93 98 95 Oxygen O2 Source Nasal cannula I&O (Last 24 Hrs): Intake and Output Totals x24h 01/05/17 01/06/17 01/07/17 23:59 23:59 23:59 Intake Total 3215 Output Total 350 Balance 2865 - Results Results: Laboratory Results WBC 9.8 x10^3/uL (4.8-10.8) 01/07/17 05:35 RBC 4.46 10^6/uL (4.20-5.40) 01/07/17 05:35 Hgb 11.6 g/dL (12.0-16.0) L 01/07/17 05:35 Hct 36.2 % (37.0-47.0) L 01/07/17 05:35 MCV 81.2 fL (81.0-99.0) 01/07/17 05:35 MCH 25.9 pg (27.0-31.0) L 01/07/17 05:35 MCHC 31.9 g/dL (32.0-36.0) L 01/07/17 05:35 RDW 19.5 % (12.0-15.0) H 01/07/17 05:35 Plt Count 346 10^3/uL (130-450) 01/07/17 05:35 MPV 7.5 fL (7.9-10.8) L 01/07/17 05:35 Neut # 7.6 10^3/uL (1.5-6.6) H 01/07/17 05:35 Lymph # 1.4 10^3/uL (1.5-3.5) L 01/07/17 05:35 [place] # 0.7 10^3/uL (0.0-1.0) 01/07/17 05:35 Eos # 0.1 10^3/uL (0.0-0.7) 01/07/17 05:35 Baso # 0.1 10^3/uL (0.0-0.1) 01/07/17 05:35 Absolute Nucleated RBC 0.00 x10^3/uL 01/07/17 05:35 Nucleated RBCs 0.0 /100WBC 01/07/17 05:35 PT 13.1 secs (9.9-12.6) H 01/07/17 05:35 INR 1.2 (0.8-1.2) 01/07/17 05:35 VBG pH 7.337 (7.31-7.41) 01/07/17 17:00 Ionized Calcium 1.00 mmol/L (1.15-1.33) L 01/07/17 17:00 Sodium 142 mmol/L (135-145) 01/07/17 05:35 Potassium 3.1 mmol/L (3.5-5.0) L 01/07/17 05:35 Chloride 105 mmol/L (101-111) 01/07/17 05:35 Carbon Dioxide 27 mmol/L (21-32) 01/07/17 05:35 Anion Gap 10.0 (6-13) 01/07/17 05:35 BUN 11 mg/dL (6-20) 01/07/17 05:35 Creatinine 0.9 mg/dL (0.4-1.0) 01/07/17 05:35 Estimated GFR (MDRD) 64 (>89) L 01/07/17 05:35 Glucose 138 mg/dL (70-100) H 01/07/17 05:35 POC Whole Bld Glucose 135 mg/dL (70 - 100) H 01/07/17 12:19 Lactic Acid 1.9 mmol/L (0.5-2.2) 01/07/17 05:35 Calcium 7.0 mg/dL (8.5-10.3) L 01/07/17 08:00 Ionized Calcium YES 01/07/17 08:00 Phosphorus 3.6 mg/dL (2.5-4.6) 01/07/17 05:35 Magnesium 1.2 mg/dL (1.7-2.8) L 01/07/17 05:35 Total Bilirubin 0.3 mg/dL (0.2-1.0) 01/07/17 05:35 AST 22 IU/L (10-42) 01/07/17 05:35 ALT 17 IU/L (10-60) 01/07/17 05:35 Alkaline Phosphatase 75 IU/L (42-121) 01/07/17 05:35 Troponin I < 0.04 ng/mL (<0.49) 01/06/17 00:09 Total Protein 5.8 g/dL (6.7-8.2) L 01/07/17 05:35 Albumin 3.0 g/dL (3.2-5.5) L 01/07/17 05:35 Globulin 2.8 g/dL (2.1-4.2) 01/07/17 05:35 Albumin/Globulin Ratio 1.1 (1.0-2.2) 01/07/17 05:35 Lipase 43 U/L (22-51) 01/06/17 00:09 TSH 6.36 uIU/mL (0.34-5.60) H 01/06/17 00:09 Urine Color YELLOW 01/07/17 03:54 Urine Clarity SL. CLOUDY (CLEAR) 01/07/17 03:54 Urine pH 6.5 PH (5.0-7.5) 01/07/17 03:54 Ur Specific [place] 1.015 (1.002-1.030) 01/07/17 03:54 Urine Protein 30 mg/dL (NEGATIVE) H 01/07/17 03:54 Urine Glucose (UA) 100 mg/dL (NEGATIVE) H 01/07/17 03:54 Urine Ketones NEGATIVE mg/dL (NEGATIVE) 01/07/17 03:54 Urine Occult Blood NEGATIVE (NEGATIVE) 01/07/17 03:54 Urine Nitrite NEGATIVE (NEGATIVE) 01/07/17 03:54 Urine Bilirubin NEGATIVE (NEGATIVE) 01/07/17 03:54 Urine Urobilinogen 0.2 (NORMAL) E.U./dL (NORMAL) 01/07/17 03:54 Ur Leukocyte Esterase NEGATIVE (NEGATIVE) 01/07/17 03:54 Urine RBC 0-5 /HPF (0-5) 01/07/17 03:54 Urine WBC 0-3 /HPF (0-5) 01/07/17 03:54 Ur Squamous Epith Cells RARE Squamous (<= Few) 01/07/17 03:54 Urine Bacteria Rare /HPF (None Seen) 01/07/17 03:54 Urine Casts 6-10 Hyaline Casts /LPF 01/07/17 03:54 Urine Mucus Moderate Strands 01/07/17 03:54 Ur Microscopic Review INDICATED 01/07/17 03:54 Urine Culture Comments NOT INDICATED 01/07/17 03:54 Salicylates < 6.0 mg/dL 01/06/17 00:09 Urine Opiates Screen NEGATIVE (NEGATIVE) 01/07/17 03:54 Ur Oxycodone Screen NEGATIVE (NEGATIVE) 01/07/17 03:54 Urine Methadone Screen NEGATIVE (NEGATIVE) 01/07/17 03:54 Ur Propoxyphene Screen NEGATIVE (NEGATIVE) 01/07/17 03:54 Acetaminophen < 10 ug/mL (10-30) L 01/06/17 00:09 Ur Barbiturates Screen NEGATIVE (NEGATIVE) 01/07/17 03:54 Ur Tricyclics Screen NEGATIVE (NEGATIVE) 01/07/17 03:54 Ur Phencyclidine Scrn NEGATIVE (NEGATIVE) 01/07/17 03:54 Ur Amphetamine Screen NEGATIVE (NEGATIVE) 01/07/17 03:54 U Methamphetamines Scrn NEGATIVE (NEGATIVE) 01/07/17 03:54 U Benzodiazepines Scrn POSITIVE (NEGATIVE) H 01/07/17 03:54 Urine Cocaine Screen NEGATIVE (NEGATIVE) 01/07/17 03:54 U Cannabinoids Screen NEGATIVE (NEGATIVE) 01/07/17 03:54 Ethyl Alcohol < 5.0 mg/dL 01/06/17 00:09 - Procedures Procedures: Procedures ARTHROCENTESIS (08/24/14) PACKED CELL TRANSFUSION (08/24/14) RONALD OF KNEE REPLACEMENT, PATELLAR COMPONENT (05/02/14) RONALD OF TOTAL KNEE REPLACEMENT, TIBIAL INSERT (LINER) (05/02/14) TOTAL KNEE REPLACEMENT (08/08/14) VENOUS CATHETERIZATION NEC (08/24/14)
[2017-01-07] MEDS ORDERED: CALCIUM GLUCONATE 1,000 MG in SODIUM CHLORIDE 0.9% 50 ML IV ONE (19:15)
[2017-01-07] MEDS: CHOLECALCIFEROL 1,000 UNIT TABLET PO SCH (20:31)
[2017-01-07] MEDS: ALPRAZolam 0.25 MG TABLET PO SCH (20:32)
--- NOTE | 2017-01-07 21:46 | HISTORY & PHYSICAL EXAMINATION ---
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 The patients states that she has had chronic pain for years but recently was weaned off of opioids and was getting ready to try an epidural injection on 01/12/17 but in order to get the injection she had to stop taking aspirin which she takes regularly for her chronic pain and takes more than 20 tablets everyday. She states that in order to stop the aspirin she went to her primary care physician to get opioids to hold her through during the time she stops her aspirin but her primary care physician told the her that she would not get an opioid prescription because her primary care physician no longer gave opioid prescriptions. The patient states she has been suffering with pain for so long and the last 7 days her back pain was just continuing to worsen and she also had bad headaches. She states that she saw no scenario under which she will ever be able to get the epidural to help relieve her pain and she felt helpless. She states she did not want to live like this any longer and wanted to end her life. So she decided to take a bunch of pills and drive down to the beach and look out at the sea as she leaves this world. She states she took out her pills which included metoprolol, metformin, trazadone, mirapex and fluoxetine took a handful from each bottle and down them with water. She states she does not know how many of each she took. She states after that she was getting ready to drive down to the beach but her friend came to visit her. She states that she told her friend what she had done and her friend immediately called for an ambulance. The patient was then brought into the ED. On presentation to the ED the patient was awake and alert and it had only been a short time since she took the pills. Her blood pressure however was soft in the low 100s but heart rate initially was normal. Poison control was contacted and recommended activated charcoal. The patient was given charcoal and initially monitored in the ER. The patients initial labs revealed a mild hypokalemia and hypomagnesemia which appeared to be chronic for the patient as she did have chronic diarrhea. She also was found to have a lactate of 3.7. After several hours and 3L of IVF the patients blood pressure was not improving and in fact getting worse down to 80/60 with heart rate dipping down into the 50s. At this point there was serious concern for a beta lisa overdose and the patient was admitted to the ICU for closer monitoring. The emergency room physician placed a central line prior to admission and the patient was given IV glucagon to reverse the effects of the beta lisa. Patient remained alert and awake. Review of Systems - Constitutional Constitutional: denies: Fatigue, Fever, Chills, Malaise, Weakness, Poor appetite , Diaphoresis, Night sweats, Weight gain, Weight loss - Eyes Eyes: denies: Pain, Irritation, Amaurosis, Blurred vision, Spots in vision, Field loss, Vision loss, Dipolpia - Ears, Nose & Throat Ears, Nose & Throat: denies: Ear pain, Hearing loss, Hearing aids, Tinnitus, Vertigo, Nasal pain, Nasal obstruction, Sore throat, Hoarseness - Cardiovascular Cariovascular: denies: Irregular heart rate, Palpitations, Chest pain, Edema, Lightheadedness, Syncope, Exertional dyspnea, Decr. exercise tolerance, Orthopnea - Respiratory Respiratory: denies: Cough, Sputum production, Wheezing, Hemoptysis, Orthopnea, SOB at rest, SOB with exertion, Apnea, Pleuritic pain - Gastrointestinal Gastrointestinal: reports: Diarrhea. denies: Abdominal pain, Abdominal distention, Constipation, Change in bowel habits, Rectal bleeding, Black stools , Bloody stools, Nausea, Vomiting, Stuart blood emesis, Coffee grounds emesis, Bloating, Poor appetite - Genitourinary Genitourinary: denies: Dysuria, Frequency, Urgency, Hematuria, Incontinence, Flank pain - Musculoskeletal Musculoskeletal: reports: Muscle pain, Back pain, Stiffness, Joint pain. denies : Muscle aches, Limited range of motion, Muscle weakness, Gout, Joint swelling - Integumentary Integumentary: denies: Rash, Pruritis, Lesions, Dryness - Neurological Neurological: reports: Headache. denies: General weakness, Focal weakness, Dizziness, Numbness, Memory problems, Abnormal gait, Slurred speech - Psychiatric Psychiatric: reports: Depression, Anxiety, Suicidal. denies: Delusions, Hallucinations - Endocrine Endocrine: denies: Polyuria, Polydypsia, Polyphagia - Hematologic/Lymphatic Hematologic/Lymphatic: denies: Anemia, Bruising, Petechiae History - Past Medical History Cardiovascular: reports: Congestive heart failure, Hypertension Respiratory: reports: Other Neuro: reports: None, Other Endocrine/Autoimmune: reports: None GI: reports: GERD, Colon polyps, Chronic diarrhea, Other : reports: Incontinence HEENT: reports: Chronic vision loss, Chronic sinusitis Psych: reports: Depression, Anxiety, Obsessive compulsive disorder Musculoskeletal: reports: Osteoarthritis Derm: reports: Other MRSA Hx?: No Other Past Medical History: 1. 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 2. Reactive arthritis secondary to Shigella infection on chronic steroids since 2004. 3. Davida Syndrome. 4. 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 5. Obesity. 6. Pulmonary Hypertension. 7. Congestive Heart Failure. 8. Irritable bowel syndrome. 9. Osteroarthritis. 10. Anxiety. 11. Depression. 12. History of sphenoid sinus mass. 13. History of small bowel obstruction. 14. Horners syndrome. 15. Trigeminal Neuralgia. 16. Fatty Liver Disease. 17. Chronic back pain. 18. History of small bowel obstruction. 19. GERD. 20. 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 [employer]. She is originally from the [place] in [facility]. She lives alone with her dog. She does not have any biological children. She is not . She is a smoker and continue to smoke a pack a day and has been smoking for 45 years. She does not drink alcohol. She did try to use cannibis for pain control but it did not work and she does not use any other illicit drugs. - Substance History Use: Uses substance without health or social issues: Tobacco Abuse: Recurrent use of substance despite neg consequences: NONE Dependence: Experiences withdrawal or developed tolerances: NONE Tobacco Details: Cigarettes - POLST Patient has POLST: Yes POLST Status: DNR Meds/Allgy - Home Medications Home Medications: Ambulatory Orders Medication Instructions Recorded Confirmed Alprazolam 0.5 mg PO HS 05/29/13 01/07/17 Aspirin [Aspirin EC] 650 mg PO TID 05/29/13 01/07/17 Cholecalciferol (Vitamin D3) 1,000 unit PO HS 05/29/13 01/07/17 [Vitamin D3] FLUoxetine [PROzac] 20 mg PO DAILY 05/29/13 01/07/17 Furosemide [Lasix] 40 mg PO DAILY PRN 05/29/13 01/07/17 Metoprolol Tartrate 50 mg PO DAILY 05/29/13 01/07/17 Metoprolol Tartrate 100 mg PO HS 05/29/13 01/07/17 Potassium Chloride 20 meq PO DAILY PRN 05/29/13 01/07/17 Sulfasalazine [Sulfazine] 1,500 mg PO BID 05/29/13 01/07/17 Vitamin B Complex 1 each PO DAILY 05/29/13 01/07/17 predniSONE [Deltasone] 5 mg PO DAILY 05/29/13 01/07/17 Esomeprazole Magnesium [Nexium] 40 mg PO DAILY 05/01/14 01/07/17 Lactobacillus Acidophilus 1 each PO DAILY 05/01/14 01/07/17 [Probiotic] diphenhydrAMINE [Benadryl] 25 mg PO HS 05/01/14 01/07/17 Fluticasone 220 Mcg [Flovent] 1 spray IH DAILY 08/07/14 01/07/17 Hydroxyzine HCl 25 mg PO QID 08/07/14 01/07/17 Mupirocin 2% Oint [Bactroban 2% 1 applic TOP BID 08/07/14 01/07/17 Oint] Nystatin 1 each TOP DAILY 08/07/14 10/18/16 Zinc 50 mg PO BID 08/07/14 01/07/17 Lidocaine Patch 5% [Lidoderm Patch] 1 each TOP DAILY #20 patch 09/24/16 01/07/17 Pramipexole [Mirapex] 0.25 mg PO HS #30 tablet 09/24/16 01/07/17 diazePAM [Valium] 5 mg PO TID PRN #15 tablet 09/24/16 01/07/17 Esomeprazole Magnesium [Nexium] 20 mg PO DAILY #30 capsule. 10/18/16 01/07/17 Hydrocodone/Acetaminophen 1 - 2 each PO Q6H PRN #14 tablet 10/18/16 01/07/17 [Hydrocodon-Acetaminophen 5-325] - Allergies Allergies/Adverse Reactions: Allergies Allergy/AdvReac Type Severity Reaction Status Date / Time droperidol [From Inapsine] Allergy Severe EPS Verified 10/18/16 01:38 ibuprofen [From Motrin] Allergy Severe Anaphylaxis Verified 10/18/16 01:38 peanut Allergy Severe Anaphylaxis Verified 10/18/16 01:38 shellfish derived Allergy Severe Anaphylaxis Verified 10/18/16 01:38 Pqynxye-Ach-Kcy Reductase Allergy Severe muscle pain Verified 10/18/16 01:38 Inhibitor amoxicillin [Amoxicillin] Allergy Intermediate Hives Verified 10/18/16 01:38 cefazolin Allergy Intermediate Hives Verified 10/18/16 01:38 Cephalosporins Allergy Intermediate Hives Verified 10/18/16 01:38 clindamycin Allergy Intermediate Hives Verified 10/18/16 01:38 cyclobenzaprine Allergy Intermediate Hives/night Verified 10/18/16 01:38 [Cyclobenzaprine] castaneda erythromycin base Allergy Intermediate Hives Verified 10/18/16 01:38 [Erythromycin Base] potassium clavulanate * Allergy Intermediate Hives Verified 10/18/16 01:38 [From Augmentin] ketorolac tromethamine * Allergy Anaphylaxis Verified 10/18/16 01:49 [From Toradol] duloxetine AdvReac Severe Suicidal Verified 10/18/16 01:38 etanercept [From Enbrel] AdvReac Severe Nausea/vomm Verified 10/18/16 01:38 iting/cramp s methotrexate AdvReac Severe N/V/Cramps Verified 10/18/16 01:38 NSAIDS (Non-Steroidal AdvReac Severe N/V/Cramps Verified 10/18/16 01:38 Anti-Inflamma prochlorperazine AdvReac Severe EPS Verified 10/18/16 01:38 pseudoephedrine AdvReac Severe Tachycardia Verified 10/18/16 01:38 sumatriptan AdvReac Severe Widened QRS Verified 10/18/16 01:38 doxycycline AdvReac Intermediate Hives Verified 10/18/16 01:38 gabapentin AdvReac Intermediate Gait Verified 10/18/16 01:38 disturbance latex AdvReac Intermediate Sensitivity Verified 10/18/16 01:38 Tape AdvReac Severe Blisters Uncoded 10/18/16 01:38 Exam - Vital Signs Reviewed Vital Signs: Yes Vital Signs: Vital Signs x48h Temp Pulse Resp BP BP Pulse Ox 01/07/17 20:14 37 C 01/07/17 20:00 73 20 121/73 95 01/07/17 18:55 64 16 116/65 95 01/07/17 18:00 60 18 113/65 95 01/07/17 16:59 70 12 101/76 98 01/07/17 16:00 37 C 53 L 24 96/58 L 93 01/07/17 15:00 62 14 111/70 95 01/07/17 14:00 60 25 H 108/69 89 L - Physical Exam General Appearance: positive: No acute distress, Alert, Other (Morbidly obese, very talkative woman does not appear to be depressed. She is alert and talking.) Eyes Bilateral: positive: Normal inspection, PERRL, EOMI, No lid inflammation, Conjunctivae nml, No scleral icterus ENT: positive: ENT inspection nml, Dry mucous membranes, Other (Tongue is stained black from charcoal). negative: Purulent nasal drainage, Pharyngeal erythema, Oral lesions Neck: positive: Nml inspection, Thyroid nml, No JVD, Trachea midline, Other ( [place] hump). negative: Thyromegaly, Lymphadenopathy (R), Lymphadenopathy (L) Respiratory: positive: Chest non-tender, No respiratory distress, Breath sounds nml. negative: Wheezes, Rales, Rhonchi Cardiovascular: positive: No murmur, No gallop, Bradycardia Peripheral Pulses: positive: 2+ Abdomen: positive: Non-tender, No organomegaly, Nml bowel sounds, Other (Obese) . negative: Guarding, Rebound, Hepatomegaly Back: positive: Nml inspection. negative: CVA tenderness (R), CVA tenderness (L ) Skin: positive: Color nml, No rash, Warm. negative: Cyanosis, Pallor Extremities: positive: Non-tender, Full ROM, Nml appearance, No pedal edema Neurologic/Psychiatric: positive: Oriented x3, CN's nml (2-12), Motor nml, Sensation nml Conclusion/Plan - Problem List (1) Suicide attempt by beta lisa overdose Conclusion/Plan: Patient was depressed and fed up with dealing with her chronic pain so decided to end her life by taking handful of her pills One of the pills she took was metoprolol and despite getting activated charcoal in the ED she was having hypotension and bradycardia Patient admitted to ICU for close monitoring Plan: Monitor BP closely Monitor HR on tele Given glucagon in the ED and will give another 5mg IV in the ICU Hold all rate lowering medications Give IVFs Monitor closely Patient will need to be seen by social work and will likely [facility] Qualifiers: Encounter type: initial encounter Qualified Code(s): T44.7X2A - Poisoning by beta-adrenoreceptor antagonists, intentional self-harm, initial encounter (2) Bradycardia Conclusion/Plan: Secondary to overdose with metoprolol Give IVFs to flush out metoprolol Monitor HR closely on tele Give glucagon IV Hold any further metoprolol doses (3) Hypotension Conclusion/Plan: Secondary to overdose with metoprolol and other medications Will monitor BP closely Give IVFs Give pressors if needed Patient mentating well Qualifiers: Hypotension type: hypotension due to drug Qualified Code(s): I95.2 - Hypotension due to drugs (4) Chronic pain Conclusion/Plan: Chronic back pain on ASA at home without any opioids patients pain worse over last week and she could not get opioids therefore wanted to kill herself Will avoid any IV pain meds for now given her low BP Will start on PO opioids to take care of acute pain Continue aspirin Monitor Qualifiers: Chronic pain type: chronic pain syndrome Qualified Code(s): G89.4 - Chronic pain syndrome (5) Diabetes Conclusion/Plan: Secondary to longterm steroid use Place on SS insulin DM diet Check HbA1C Monitor blood glucose Qualifiers: Diabetes mellitus type: drug or chemical induced (6) Depression Conclusion/Plan: Patient attempted suicide by overdose on her home medications Will continue home antidepressants Patient counselled Social work consult Will need to be [facility] once medically stable (7) Hypokalemia Conclusion/Plan: Secondary to chronic diarrhea Replace K Monitor (8) Hypomagnesemia Conclusion/Plan: Magnesium low secondary to diarrhea Replace Mg Monitor (9) Prophylactic use of low molecular weight heparin for venous thromboembolism Conclusion/Plan: Place on lovenox - Lab Results Lab results reviewed: Yes Fish Bones: 01/07/17 05:35 01/07/17 05:35 Other Lab Results: Laboratory Results WBC 9.8 x10^3/uL (4.8-10.8) 01/07/17 05:35 RBC 4.46 10^6/uL (4.20-5.40) 01/07/17 05:35 Hgb 11.6 g/dL (12.0-16.0) L 01/07/17 05:35 Hct 36.2 % (37.0-47.0) L 01/07/17 05:35 MCV 81.2 fL (81.0-99.0) 01/07/17 05:35 MCH 25.9 pg (27.0-31.0) L 01/07/17 05:35 MCHC 31.9 g/dL (32.0-36.0) L 01/07/17 05:35 RDW 19.5 % (12.0-15.0) H 01/07/17 05:35 Plt Count 346 10^3/uL (130-450) 01/07/17 05:35 MPV 7.5 fL (7.9-10.8) L 01/07/17 05:35 Neut # 7.6 10^3/uL (1.5-6.6) H 01/07/17 05:35 Lymph # 1.4 10^3/uL (1.5-3.5) L 01/07/17 05:35 [place] # 0.7 10^3/uL (0.0-1.0) 01/07/17 05:35 Eos # 0.1 10^3/uL (0.0-0.7) 01/07/17 05:35 Baso # 0.1 10^3/uL (0.0-0.1) 01/07/17 05:35 Absolute Nucleated RBC 0.00 x10^3/uL 01/07/17 05:35 Nucleated RBCs 0.0 /100WBC 01/07/17 05:35 PT 13.1 secs (9.9-12.6) H 01/07/17 05:35 INR 1.2 (0.8-1.2) 01/07/17 05:35 VBG pH 7.337 (7.31-7.41) 01/07/17 17:00 Ionized Calcium 1.00 mmol/L (1.15-1.33) L 01/07/17 17:00 Sodium 142 mmol/L (135-145) 01/07/17 05:35 Potassium 3.1 mmol/L (3.5-5.0) L 01/07/17 05:35 Chloride 105 mmol/L (101-111) 01/07/17 05:35 Carbon Dioxide 27 mmol/L (21-32) 01/07/17 05:35 Anion Gap 10.0 (6-13) 01/07/17 05:35 BUN 11 mg/dL (6-20) 01/07/17 05:35 Creatinine 0.9 mg/dL (0.4-1.0) 01/07/17 05:35 Estimated GFR (MDRD) 64 (>89) L 01/07/17 05:35 Glucose 138 mg/dL (70-100) H 01/07/17 05:35 POC Whole Bld Glucose 135 mg/dL (70 - 100) H 01/07/17 12:19 Lactic Acid 1.9 mmol/L (0.5-2.2) 01/07/17 05:35 Calcium 7.0 mg/dL (8.5-10.3) L 01/07/17 08:00 Ionized Calcium YES 01/07/17 08:00 Phosphorus 3.6 mg/dL (2.5-4.6) 01/07/17 05:35 Magnesium 1.2 mg/dL (1.7-2.8) L 01/07/17 05:35 Total Bilirubin 0.3 mg/dL (0.2-1.0) 01/07/17 05:35 AST 22 IU/L (10-42) 01/07/17 05:35 ALT 17 IU/L (10-60) 01/07/17 05:35 Alkaline Phosphatase 75 IU/L (42-121) 01/07/17 05:35 Troponin I < 0.04 ng/mL (<0.49) 01/06/17 00:09 Total Protein 5.8 g/dL (6.7-8.2) L 01/07/17 05:35 Albumin 3.0 g/dL (3.2-5.5) L 01/07/17 05:35 Globulin 2.8 g/dL (2.1-4.2) 01/07/17 05:35 Albumin/Globulin Ratio 1.1 (1.0-2.2) 01/07/17 05:35 Lipase 43 U/L (22-51) 01/06/17 00:09 TSH 6.36 uIU/mL (0.34-5.60) H 01/06/17 00:09 Urine Color YELLOW 01/07/17 03:54 Urine Clarity SL. CLOUDY (CLEAR) 01/07/17 03:54 Urine pH 6.5 PH (5.0-7.5) 01/07/17 03:54 Ur Specific [place] 1.015 (1.002-1.030) 01/07/17 03:54 Urine Protein 30 mg/dL (NEGATIVE) H 01/07/17 03:54 Urine Glucose (UA) 100 mg/dL (NEGATIVE) H 01/07/17 03:54 Urine Ketones NEGATIVE mg/dL (NEGATIVE) 01/07/17 03:54 Urine Occult Blood NEGATIVE (NEGATIVE) 01/07/17 03:54 Urine Nitrite NEGATIVE (NEGATIVE) 01/07/17 03:54 Urine Bilirubin NEGATIVE (NEGATIVE) 01/07/17 03:54 Urine Urobilinogen 0.2 (NORMAL) E.U./dL (NORMAL) 01/07/17 03:54 Ur Leukocyte Esterase NEGATIVE (NEGATIVE) 01/07/17 03:54 Urine RBC 0-5 /HPF (0-5) 01/07/17 03:54 Urine WBC 0-3 /HPF (0-5) 01/07/17 03:54 Ur Squamous Epith Cells RARE Squamous (<= Few) 01/07/17 03:54 Urine Bacteria Rare /HPF (None Seen) 01/07/17 03:54 Urine Casts 6-10 Hyaline Casts /LPF 01/07/17 03:54 Urine Mucus Moderate Strands 01/07/17 03:54 Ur Microscopic Review INDICATED 01/07/17 03:54 Urine Culture Comments NOT INDICATED 01/07/17 03:54 Salicylates < 6.0 mg/dL 01/06/17 00:09 Urine Opiates Screen NEGATIVE (NEGATIVE) 01/07/17 03:54 Ur Oxycodone Screen NEGATIVE (NEGATIVE) 01/07/17 03:54 Urine Methadone Screen NEGATIVE (NEGATIVE) 01/07/17 03:54 Ur Propoxyphene Screen NEGATIVE (NEGATIVE) 01/07/17 03:54 Acetaminophen < 10 ug/mL (10-30) L 01/06/17 00:09 Ur Barbiturates Screen NEGATIVE (NEGATIVE) 01/07/17 03:54 Ur Tricyclics Screen NEGATIVE (NEGATIVE) 01/07/17 03:54 Ur Phencyclidine Scrn NEGATIVE (NEGATIVE) 01/07/17 03:54 Ur Amphetamine Screen NEGATIVE (NEGATIVE) 01/07/17 03:54 U Methamphetamines Scrn NEGATIVE (NEGATIVE) 01/07/17 03:54 U Benzodiazepines Scrn POSITIVE (NEGATIVE) H 01/07/17 03:54 Urine Cocaine Screen NEGATIVE (NEGATIVE) 01/07/17 03:54 U Cannabinoids Screen NEGATIVE (NEGATIVE) 01/07/17 03:54 Ethyl Alcohol < 5.0 mg/dL 01/06/17 00:09 - Diagnostic Imaging Results Diagnostic Imaging Results: positive: Final report reviewed - EKG Results EKG Interpreted Independently: Yes Issues/Core Measures - Anticipated LOS Anticipated Stay Length: 2 or more midnights - DVT/VTE - Prophylaxis VTE/DVT Prophylaxis med ordered at admit?: Yes
[2017-01-08] MEDS: ONDANSETRON 4 MG/2 ML VIAL IVP PRN ×2 (00:05→16:33)
[2017-01-08] MEDS: diazePAM 5 MG TABLET PO PRN (00:05)
[2017-01-08] MEDS: oxyCODONE 5 MG TABLET PO PRN ×4 (00:39→21:49)
[2017-01-08] MEDS ORDERED: hydrOXYzine PAMOATE 25 MG CAPSULE PO SCH (00:50)
[2017-01-08] MEDS: NS W/20 MEQ KCL 1,000 ML IV SCH ×2 (01:45→12:45)
[2017-01-08] MEDS ORDERED: SODIUM CHLORIDE 0.9% 1,000 ML IV ONE ×2 (03:39→05:21)
[2017-01-08 05:58] LABS: BASOPHILS # (AUTO) 0.1 10^3/uL (0.0-0.1); BASOPHILS % (AUTO) 0.8 %; EOSINOPHILS # (AUTO) 0.1 10^3/uL (0.0-0.7); EOSINOPHILS % (AUTO) 0.8 %; HCT - HEMATOCRIT 32.3 % (37.0-47.0); HGB - HEMOGLOBIN 10.4 g/dL (12.0-16.0); LYMPHOCYTES # (AUTO) 1.8 10^3/uL (1.5-3.5); LYMPHOCYTES % (AUTO) 19.2 %; MEAN CORPUSCULAR HEMOGLOBIN 26.5 pg (27.0-31.0); MEAN CORPUSCULAR HGB CONC 32.2 g/dL (32.0-36.0); MEAN CORPUSCULAR VOLUME 82.1 fL (81.0-99.0); MEAN PLATELET VOLUME 7.7 fL (7.9-10.8); MONOCYTES # (AUTO) 0.7 10^3/uL (0.0-1.0); MONOCYTES % (AUTO) 7.1 %; NEUTROPHILS # (AUTO) 6.7 10^3/uL (1.5-6.6); NEUTROPHILS % (AUTO) 72.1 %; NUCLEATED RED BLOOD CELLS AUTO 0.1 /100WBC; RED BLOOD COUNT 3.93 10^6/uL (4.20-5.40); RED CELL DISTRIBUTION WIDTH 19.8 % (12.0-15.0); UNCORRECTED WHITE BLOOD COUNT 9.2 x10^3/uL; WHITE BLOOD COUNT 9.2 x10^3/uL (4.8-10.8)
[2017-01-08] MEDS: ASPIRIN EC 325 MG TABLET PO SCH ×3 (06:04→21:48)
[2017-01-08 06:05] LABS: BILIRUBIN,TOTAL 0.2 mg/dL (0.2-1.0); CALCIUM 7.5 mg/dL (8.5-10.3); CREATININE 0.7 mg/dL (0.4-1.0); MAGNESIUM 1.4 mg/dL (1.7-2.8); PHOSPHORUS 4.1 mg/dL (2.5-4.6); POTASSIUM 3.9 mmol/L (3.5-5.0); TOTAL PROTEIN 5.6 g/dL (6.7-8.2)
[2017-01-08] MEDS: PANTOPRAZOLE 40 MG TABLET PO SCH (06:05)
[2017-01-08] MEDS: SODIUM CHLORIDE FLUSH 0.9% 10 ML SYRINGE IVP SCH ×3 (06:05→21:49)
[2017-01-08 06:13] LABS: CALCIUM, IONIZED 1.04 mmol/L (1.15-1.33); VBG PH 7.265 (7.31-7.41)
[2017-01-08] MEDS ORDERED: MAGNESIUM SULFATE 2 GRAM 50 ML IV ONE (06:29)
[2017-01-08] MEDS: predniSONE 5 MG TABLET PO SCH (08:55)
[2017-01-08] MEDS: FLUoxetine 10 MG CAPSULE PO SCH (08:55)
[2017-01-08] MEDS: LACTOB/S.THERMOPHL/BIFIDO CAPSULE PO SCH (08:55)
[2017-01-08] MEDS: ZINC SULFATE 220 MG CAPSULE PO SCH (09:00)
[2017-01-08 09:07] LABS: HEMOGLOBIN A1C 0.54 g/dL
[2017-01-08] MEDS: ENOXAPARIN 40 MG/0.4 ML SYRINGE SUBQ SCH (12:37)
[2017-01-08] MEDS: MUPIROCIN 2% OINT 1 GM TOP SCH ×2 (12:38→21:48)
[2017-01-08] MEDS: NYSTATIN POWDER 15 GM TOP SCH ×2 (12:38→16:48)
[2017-01-08] MEDS: LIDOCAINE PATCH 5% TOP SCH (13:03)
[2017-01-08] MEDS: sulfaSALAzine 500 MG TABLET PO SCH ×2 (13:03→21:48)
--- NOTE | 2017-01-08 20:04 | PROVIDER PROGRESS NOTE ---
Assessment/Plan - Problem List (1) Medication overdose Qualifiers: Encounter type: subsequent encounter Injury intent: intentional self-harm Qualified Code(s): T50.902D - Poisoning by unspecified drugs, medicaments and biological substances, intentional self-harm, subsequent encounter Assessment/Plan: Stable VS and labs. Will stop telemetry and increase activity/ ambulation. Pt interested in psychiatric management. Social work/Case management to evaluate for transfer to location that will accept her, given need for pain management and use of cane and quad walker for ambulation. RN evaluation has shown no suicidal ideation currently. 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 Social Work is attempting to find a facility that will accept her in transfer for voluntary admission for psychiatric care. (6) Chronic pain Qualifiers: Chronic pain type: chronic pain syndrome Qualified Code(s): G89.4 - Chronic pain syndrome Assessment/Plan: Her pain is under good control with a topical Lidocaine patch and po meds. Continue present care. Assess for pain with increased ambulation. - Current Meds Current Meds: Current Medications Generic Name Dose Route Start Last Admin Trade Name Freq PRN Reason Stop Dose Admin Alprazolam 0.5 mg 01/07/17 21:00 01/07/17 20:32 Xanax PO 0.5 mg QPM RIVERA Administration Aspirin 650 mg 01/07/17 06:00 01/08/17 14:00 Ecotrin PO Not Given TID RIVERA Cholecalciferol 1,000 unit 01/07/17 21:00 01/07/17 20:31 Vitamin D3 PO 1,000 unit QPM RIVERA Administration Diazepam 5 mg 01/07/17 02:27 01/08/17 00:05 Valium PO 5 mg TID PRN Administration Spasms Enoxaparin Sodium 40 mg 01/07/17 09:00 01/08/17 12:37 Lovenox SUBQ Not Given DAILY RIVERA Fluoxetine HCl 20 mg 01/07/17 09:00 01/08/17 08:55 Prozac PO 20 mg DAILY RIVERA Administration Heparin Sodium (Beef Lung) 30 - 50 unit 01/07/17 19:58 01/07/17 21:30 IVP 02/06/17 19:59 30 unit ONCE PRN Administration Central Line Protocol (<24 hr) Potassium Chloride/Sodium Chloride 1,000 mls @ 100 mls/hr 01/07/17 03:00 12:45 Normal Saline 0.9% W/20 Meq Kcl IV 100 mls/hr .Q10H RIVERA Administration Lactobacil/Bifidobact/Streptococcus 1 cap 01/07/17 08:00 01/08/17 08:55 Vsl#3 PO 1 cap DAILYWM RIVERA Administration Lidocaine 1 patch 01/07/17 09:00 01/08/17 13:03 Lidoderm Patch TOP 1 patch DAILY RIVERA Administration Mupirocin 1 applic 01/07/17 09:00 01/08/17 12:38 Bactroban 2% Oint TOP Not Given BID RIVERA Nystatin 1 applic 01/07/17 09:00 01/08/17 16:48 Nystop TOP 1 applic DAILY RIVERA Administration Ondansetron HCl 4 mg 01/07/17 02:31 01/08/17 16:33 Zofran Inj IVP 4 mg Q6HR PRN Administration Nausea / Vomiting Oxycodone HCl 5 mg 01/07/17 02:31 01/08/17 16:36 Roxicodone PO 5 mg Q4HR PRN Administration Pain 5 to 7 Pantoprazole Sodium 40 mg 01/07/17 07:00 01/08/17 06:05 Protonix PO 40 mg QDAC RIVERA Administration Vitamin B Complex 1 each 01/07/17 09:00 01/08/17 12:38 PO Not Given DAILY RIVERA Pramipexole Dihydrochloride 0.25 mg 01/07/17 03:00 01/07/17 20:32 Mirapex PO 0.25 mg HS RIVERA Administration Prednisone 5 mg 01/07/17 09:00 01/08/17 08:55 Deltasone PO 5 mg DAILY RIVERA Administration Sodium Chloride 10 ml 01/07/17 06:00 01/08/17 12:45 Normal Saline Flush 0.9% IVP 10 ml Q8HR RIVERA Administration Sulfasalazine 1,500 mg 01/07/17 09:00 01/08/17 13:03 Azulfidine PO Not Given BID RIVERA Zinc Sulfate 220 mg 01/07/17 09:00 01/08/17 09:00 PO 220 mg DAILY RIVERA Administration - Lab Result Fish Bone Diagrams: 01/10/17 05:03 01/10/17 05:03 - Additional Planning My Orders: My Active Orders 01/07/17 19:58 Heparin Flush 30 - 50 unit IVP ONCE PRN 01/08/17 17:50 Central Line Discontinuation [RC] .ONCE 01/08/17 Lunch Carb-controlled Diet [DIET] Subjective - Subjective Patient Reports: Feeling Better (Pt had improvement in LBP with topical Lidocaine patch. RN princess gave Pt a neck massage, which helped cervical pain.), Back Pain Nursing Reports: Other (Pt seen for mental health screening and inpatient treatment,) Objective Vital Signs: Vital Signs - 24 hr 01/07/17 01/07/17 01/07/17 20:14 20:15 21:00 Temperature 37 C Heart Rate 72 Heart Rate [ 65 Monitoring electrodes] Respiratory 18 17 Rate Blood Pressure 103/59 L [Left Radial artery] O2 Saturation 95 01/07/17 01/07/17 01/07/17 22:00 22:01 23:00 Temperature Heart Rate Heart Rate [ 64 63 Monitoring electrodes] Respiratory 22 20 18 Rate Blood Pressure 97/65 104/69 [Left Radial artery] O2 Saturation 90 L 96 96 01/08/17 01/08/17 01/08/17 00:00 01:00 01:47 Temperature 36.8 C Heart Rate Heart Rate [ 63 58 L Monitoring electrodes] Respiratory 19 26 H 22 Rate Blood Pressure 109/81 H 89/63 L [Left Radial artery] O2 Saturation 94 91 L 96 01/08/17 01/08/17 01/08/17 02:02 02:30 03:15 Temperature Heart Rate Heart Rate [ 56 L 61 60 Monitoring electrodes] Respiratory 23 19 23 Rate Blood Pressure 81/51 L 100/61 91/57 L [Left Radial artery] O2 Saturation 97 97 96 01/08/17 01/08/17 01/08/17 03:30 03:45 04:00 Temperature Heart Rate Heart Rate [ 58 L 60 65 Monitoring electrodes] Respiratory 18 Rate Blood Pressure 72/52 L 79/52 L 95/56 L [Left Radial artery] O2 Saturation 96 01/08/17 01/08/1701/08/17 04:02 05:00 06:00 Temperature 36.4 C L Heart Rate Heart Rate [ 54 L 57 L Monitoring electrodes] Respiratory 18 22 Rate Blood Pressure 76/53 L 87/53 L [Left Radial artery] O2 Saturation 98 96 01/08/17 01/08/17 01/08/17 07:00 08:00 08:15 Temperature 36.7 C Heart Rate 71 Heart Rate [ 53 L 66 Monitoring electrodes] Respiratory 23 18 17 Rate Blood Pressure 78/56 L 93/58 L [Left Radial artery] O2 Saturation 96 96 01/08/17 01/08/17 01/08/17 09:00 10:00 11:00 Temperature Heart Rate Heart Rate [ 67 58 L 69 Monitoring electrodes] Respiratory 23 23 19 Rate Blood Pressure 91/72 108/73 116/71 [Left Radial artery] O2 Saturation 95 95 97 01/08/17 01/08/17 01/08/17 12:00 13:00 15:45 Temperature 37.1 C Heart Rate Heart Rate [ 72 62 Monitoring electrodes] Respiratory 18 20 Rate Blood Pressure 112/70 116/49 L [Left Radial artery] O2 Saturation 96 94 Oxygen O2 Source Room air I&O (Last 24 Hrs): Intake and Output Totals x24h 01/06/17 01/07/17 01/08/17 23:59 23:59 23:59 Intake Total 3992 4480 Output Total 450 860 Balance 3542 3620 General: Alert, Oriented x3 HEENT: Other (R eye ptosis, mild) Cardiovascular: Regular rate Respiratory: No respiratory distress Abdomen: Normal bowel sounds, Other (Obese with pannus) Extremities: No edema - Results Results: Laboratory Results WBC 9.2 x10^3/uL (4.8-10.8) 01/08/17 05:45 RBC 3.93 10^6/uL (4.20-5.40) L 01/08/17 05:45 Hgb 10.4 g/dL (12.0-16.0) L 01/08/17 05:45 Hct 32.3 % (37.0-47.0) L 01/08/17 05:45 MCV 82.1 fL (81.0-99.0) 01/08/17 05:45 MCH 26.5 pg (27.0-31.0) L 01/08/17 05:45 MCHC 32.2 g/dL (32.0-36.0) 01/08/17 05:45 RDW 19.8 % (12.0-15.0) H 01/08/17 05:45 Plt Count 301 10^3/uL (130-450) 01/08/17 05:45 MPV 7.7 fL (7.9-10.8) L 01/08/17 05:45 Neut # 6.7 10^3/uL (1.5-6.6) H 01/08/17 05:45 Lymph # 1.8 10^3/uL (1.5-3.5) 01/08/17 05:45 Rhea # 0.7 10^3/uL (0.0-1.0) 01/08/17 05:45 Eos # 0.1 10^3/uL (0.0-0.7) 01/08/17 05:45 Baso # 0.1 10^3/uL (0.0-0.1) 01/08/17 05:45 Absolute Nucleated RBC 0.01 x10^3/uL 01/08/17 05:45 Nucleated RBCs 0.1 /100WBC 01/08/17 05:45 PT 13.1 secs (9.9-12.6) H 01/07/17 05:35 INR 1.2 (0.8-1.2) 01/07/17 05:35 VBG pH 7.265 (7.31-7.41) L 01/08/17 06:00 Ionized Calcium 1.04 mmol/L (1.15-1.33) L 01/08/17 06:00 Sodium 141 mmol/L (135-145) 01/08/17 05:45 Potassium 3.9 mmol/L (3.5-5.0) 01/08/17 05:45 Chloride 107 mmol/L (101-111) 01/08/17 05:45 Carbon Dioxide 26 mmol/L (21-32) 01/08/17 05:45 Anion Gap 8.0 (6-13) 01/08/17 05:45 BUN 14 mg/dL (6-20) 01/08/17 05:45 Creatinine 0.7 mg/dL (0.4-1.0) 01/08/17 05:45 Estimated GFR (MDRD) 85 (>89) L 01/08/17 05:45 Glucose 123 mg/dL (70-100) H 01/08/17 05:45 POC Whole Bld Glucose 135 mg/dL (70 - 100) H 01/07/17 12:19 Glycated Hemoglobin 6.6 % (4.6-6.2) H 01/08/17 05:45 Estim Average Glucose 143 (70-100) H 01/08/17 05:45 Lactic Acid 1.9 mmol/L (0.5-2.2) 01/07/17 05:35 Calcium 7.5 mg/dL (8.5-10.3) L 01/08/17 05:45 Ionized Calcium YES 01/07/17 08:00 Phosphorus 4.1 mg/dL (2.5-4.6) 01/08/17 05:45 Magnesium 1.4 mg/dL (1.7-2.8) L 01/08/17 05:45 Total Bilirubin 0.2 mg/dL (0.2-1.0) 01/08/17 05:45 AST 15 IU/L (10-42) 01/08/17 05:45 ALT 15 IU/L (10-60) 01/08/17 05:45 Alkaline Phosphatase 67 IU/L (42-121) 01/08/17 05:45 Troponin I < 0.04 ng/mL (<0.49) 01/08/17 05:45 Total Protein 5.6 g/dL (6.7-8.2) L 01/08/17 05:45 Albumin 2.8 g/dL (3.2-5.5) L 01/08/17 05:45 Globulin 2.8 g/dL (2.1-4.2) 01/08/17 05:45 Albumin/Globulin Ratio 1.0 (1.0-2.2) 01/08/17 05:45 Lipase 43 U/L (22-51) 01/06/17 00:09 TSH 6.36 uIU/mL (0.34-5.60) H 01/06/17 00:09 Urine Color YELLOW 01/07/17 03:54 Urine Clarity SL. CLOUDY (CLEAR) 01/07/17 03:54 Urine pH 6.5 PH (5.0-7.5) 01/07/17 03:54 Ur Specific [place] 1.015 (1.002-1.030) 01/07/17 03:54 Urine Protein 30 mg/dL (NEGATIVE) H 01/07/17 03:54 Urine Glucose (UA) 100 mg/dL (NEGATIVE) H 01/07/17 03:54 Urine Ketones NEGATIVE mg/dL (NEGATIVE) 01/07/17 03:54 Urine Occult Blood NEGATIVE (NEGATIVE) 01/07/17 03:54 Urine Nitrite NEGATIVE (NEGATIVE) 01/07/17 03:54 Urine Bilirubin NEGATIVE (NEGATIVE) 01/07/17 03:54 Urine Urobilinogen 0.2 (NORMAL) E.U./dL (NORMAL) 01/07/17 03:54 Ur Leukocyte Esterase NEGATIVE (NEGATIVE) 01/07/17 03:54 Urine RBC 0-5 /HPF (0-5) 01/07/17 03:54 Urine WBC 0-3 /HPF (0-5) 01/07/17 03:54 Ur Squamous Epith Cells RARE Squamous (<= Few) 01/07/17 03:54 Urine Bacteria Rare /HPF (None Seen) 01/07/17 03:54 Urine Casts 6-10 Hyaline Casts /LPF 01/07/17 03:54 Urine Mucus Moderate Strands 01/07/17 03:54 Ur Microscopic Review INDICATED 01/07/17 03:54 Urine Culture Comments NOT INDICATED 01/07/17 03:54 Salicylates < 6.0 mg/dL 01/06/17 00:09 Urine Opiates Screen NEGATIVE (NEGATIVE) 01/07/17 03:54 Ur Oxycodone Screen NEGATIVE (NEGATIVE) 01/07/17 03:54 Urine Methadone Screen NEGATIVE (NEGATIVE) 01/07/17 03:54 Ur Propoxyphene Screen NEGATIVE (NEGATIVE) 01/07/17 03:54 Acetaminophen < 10 ug/mL (10-30) L 01/06/17 00:09 Ur Barbiturates Screen NEGATIVE (NEGATIVE) 01/07/17 03:54 Ur Tricyclics Screen NEGATIVE (NEGATIVE) 01/07/17 03:54 Ur Phencyclidine Scrn NEGATIVE (NEGATIVE) 01/07/17 03:54 Ur Amphetamine Screen NEGATIVE (NEGATIVE) 01/07/17 03:54 U Methamphetamines Scrn NEGATIVE (NEGATIVE) 01/07/17 03:54 U Benzodiazepines Scrn POSITIVE (NEGATIVE) H 01/07/17 03:54 Urine Cocaine Screen NEGATIVE (NEGATIVE) 01/07/17 03:54 U Cannabinoids Screen NEGATIVE (NEGATIVE) 01/07/17 03:54 Ethyl Alcohol < 5.0 mg/dL 01/06/17 00:09 - Procedures Procedures: Procedures ARTHROCENTESIS (08/24/14) PACKED CELL TRANSFUSION (08/24/14) RONALD OF KNEE REPLACEMENT, PATELLAR COMPONENT (05/02/14) RONALD OF TOTAL KNEE REPLACEMENT, TIBIAL INSERT (LINER) (05/02/14) TOTAL KNEE REPLACEMENT (08/08/14) VENOUS CATHETERIZATION NEC (08/24/14)
[2017-01-08] MEDS: CHOLECALCIFEROL 1,000 UNIT TABLET PO SCH (21:48)
[2017-01-08] MEDS: ALPRAZolam 0.25 MG TABLET PO SCH (21:48)
[2017-01-08] MEDS: PRAMIPEXOLE 0.25 MG TABLET PO SCH (21:51)
[2017-01-09] MEDS: oxyCODONE 5 MG TABLET PO PRN ×5 (01:20→21:31)
[2017-01-09] MEDS: ONDANSETRON 4 MG/2 ML VIAL IVP PRN ×5 (01:39→21:29)
[2017-01-09] MEDS: SODIUM CHLORIDE FLUSH 0.9% 10 ML SYRINGE IVP PRN ×4 (01:39→21:31)
[2017-01-09] MEDS: NS W/20 MEQ KCL 1,000 ML IV SCH (01:49)
[2017-01-09] MEDS ORDERED: LORazepam 2 MG/ML SYRINGE IVP STA (04:03)
[2017-01-09] MEDS: CALCIUM CARBONATE CHEW 500 MG TABLET PO SCH ×3 (04:26→21:29)
[2017-01-09] MEDS: SODIUM CHLORIDE FLUSH 0.9% 10 ML SYRINGE IVP SCH ×3 (04:33→21:31)
[2017-01-09 05:36] LABS: BASOPHILS # (AUTO) 0.1 10^3/uL (0.0-0.1); BASOPHILS % (AUTO) 1.1 %; EOSINOPHILS # (AUTO) 0.1 10^3/uL (0.0-0.7); EOSINOPHILS % (AUTO) 0.9 %; HCT - HEMATOCRIT 33.9 % (37.0-47.0); HGB - HEMOGLOBIN 10.6 g/dL (12.0-16.0); LYMPHOCYTES # (AUTO) 1.3 10^3/uL (1.5-3.5); LYMPHOCYTES % (AUTO) 15.3 %; MEAN CORPUSCULAR HEMOGLOBIN 25.6 pg (27.0-31.0); MEAN CORPUSCULAR HGB CONC 31.4 g/dL (32.0-36.0); MEAN CORPUSCULAR VOLUME 81.6 fL (81.0-99.0); MEAN PLATELET VOLUME 7.7 fL (7.9-10.8); MONOCYTES # (AUTO) 0.6 10^3/uL (0.0-1.0); MONOCYTES % (AUTO) 7.1 %; NEUTROPHILS # (AUTO) 6.6 10^3/uL (1.5-6.6); NEUTROPHILS % (AUTO) 75.6 %; RED BLOOD COUNT 4.15 10^6/uL (4.20-5.40); RED CELL DISTRIBUTION WIDTH 19.4 % (12.0-15.0); UNCORRECTED WHITE BLOOD COUNT 8.7 x10^3/uL; WHITE BLOOD COUNT 8.7 x10^3/uL (4.8-10.8)
[2017-01-09 05:49] LABS: ALBUMIN/GLOBULIN RATIO 1.1 (1.0-2.2); BILIRUBIN,TOTAL 0.7 mg/dL (0.2-1.0); CALCIUM 7.7 mg/dL (8.5-10.3); CREATININE 0.5 mg/dL (0.4-1.0); MAGNESIUM 1.5 mg/dL (1.7-2.8); PHOSPHORUS 2.9 mg/dL (2.5-4.6); POTASSIUM 3.7 mmol/L (3.5-5.0); TOTAL PROTEIN 5.9 g/dL (6.7-8.2)
[2017-01-09] MEDS: ASPIRIN EC 325 MG TABLET PO SCH ×3 (05:52→21:31)
[2017-01-09] MEDS: PANTOPRAZOLE 40 MG TABLET PO SCH (06:56)
[2017-01-09] MEDS: ENOXAPARIN 40 MG/0.4 ML SYRINGE SUBQ SCH (07:57)
[2017-01-09] MEDS: LACTOB/S.THERMOPHL/BIFIDO CAPSULE PO SCH (08:14)
[2017-01-09] MEDS: FLUoxetine 10 MG CAPSULE PO SCH (08:15)
[2017-01-09] MEDS: LIDOCAINE PATCH 5% TOP SCH (08:15)
[2017-01-09] MEDS: MUPIROCIN 2% OINT 1 GM TOP SCH ×2 (08:15→21:30)
[2017-01-09] MEDS: sulfaSALAzine 500 MG TABLET PO SCH ×2 (08:16→21:30)
[2017-01-09] MEDS: predniSONE 5 MG TABLET PO SCH (08:16)
[2017-01-09] MEDS: ZINC SULFATE 220 MG CAPSULE PO SCH (08:16)
--- NOTE | 2017-01-09 18:51 | PROVIDER PROGRESS NOTE ---
Assessment/Plan - Problem List (1) Medication overdose Qualifiers: Encounter type: subsequent encounter Injury intent: intentional self-harm Qualified Code(s): T50.902D - Poisoning by unspecified drugs, medicaments and biological substances, intentional self-harm, subsequent encounter Assessment/Plan: Pt is interested in voluntary inpatient of her psychiatric problem. Social work is working on finding a facility to accept her in transfer (she needs DME which many facilities will not allow). Pt is medically stable on current medical management of her pain with current meds and is medically cleared for transfer for psychiatric care. 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 Ambulating with quad walker. - Current Meds Current Meds: Current Medications Generic Name Dose Route Start Last Admin Trade Name Freq PRN Reason Stop Dose Admin Alprazolam 0.5 mg 01/07/17 21:00 01/08/17 21:48 Xanax PO 0.5 mg QPM RIVERA Administration Aspirin 650 mg 01/07/17 06:00 01/09/17 13:50 Ecotrin PO Not Given TID [facility] Calcium Carbonate/Glycine 500 mg 01/09/17 04:05 01/09/17 08:15 Tums PO 500 mg BID RIVERA Administration Cholecalciferol 1,000 unit 01/07/17 21:00 01/08/17 21:48 Vitamin D3 PO 1,000 unit QPM RIVERA Administration Diazepam 5 mg 01/07/17 02:27 01/08/17 00:05 Valium PO 5 mg TID PRN Administration Spasms Enoxaparin Sodium 40 mg 01/07/17 09:00 01/09/17 07:57 Lovenox SUBQ Not Given DAILY [facility] Fluoxetine HCl 20 mg 01/07/17 09:00 01/09/17 08:15 Prozac PO 20 mg DAILY RIVERA Administration Heparin Sodium (Beef Lung) 30 - 50 unit 01/07/17 19:58 01/07/17 21:30 IVP 02/06/17 19:59 30 unit ONCE PRN Administration Central Line Protocol (<24 hr) Lactobacil/Bifidobact/Streptococcus 1 cap 01/07/17 08:00 01/09/17 08:14 Vsl#3 PO 1 cap DAILYWM RIVERA Administration Lidocaine 1 patch 01/07/17 09:00 01/09/17 08:15 Lidoderm Patch TOP 1 patch DAILY RIVERA Administration Mupirocin 1 applic 01/07/17 09:00 01/09/17 08:15 Bactroban 2% Oint TOP 1 applic BID RIVERA Administration Nystatin 1 applic 01/07/17 09:00 01/08/17 16:48 Nystop TOP 1 applic DAILY RIVERA Administration Ondansetron HCl 4 mg 01/07/17 02:31 01/09/17 17:44 Zofran Inj IVP 4 mg Q6HR PRN Administration Nausea / Vomiting Oxycodone HCl 5 mg 01/07/17 02:31 01/09/17 15:07 Roxicodone PO 5 mg Q4HR PRN Administration Pain 5 to 7 Oxycodone HCl 10 mg 01/09/17 01:06 01/09/17 01:20 Roxicodone PO 10 mg Q4HR PRN Administration PAIN Pantoprazole Sodium 40 mg 01/07/17 07:00 01/09/17 06:56 Protonix PO 40 mg QDAC RIVERA Administration Vitamin B Complex 1 each 01/07/17 09:00 01/09/17 08:16 PO Not Given DAILY RIVERA Pramipexole Dihydrochloride 0.25 mg 01/07/17 03:00 01/08/17 21:51 Mirapex PO 0.25 mg HS RIVERA Administration Prednisone 5 mg 01/07/17 09:00 01/09/17 08:16 Deltasone PO 5 mg DAILY RIVERA Administration Sodium Chloride 10 ml 01/07/17 02:31 01/09/17 13:18 Normal Saline Flush 0.9% IVP 10 ml PRN PRN Administration NEEDED PER PROVIDER ORDERS Sodium Chloride 10 ml 01/07/17 06:00 01/09/17 13:57 Normal Saline Flush 0.9% IVP 10 ml Q8HR RIVERA Administration Sulfasalazine 1,500 mg 01/07/17 09:00 01/09/17 08:16 Azulfidine PO Not Given BID RIVERA Zinc Sulfate 220 mg 01/07/17 09:00 01/09/17 08:16 PO 220 mg DAILY RIVERA Administration - Lab Result Fish Bone Diagrams: 01/09/17 05:02 01/09/17 05:02 - Additional Planning My Orders: My Active Orders 01/08/17 17:50 Central Line Discontinuation [RC] .ONCE Objective Vital Signs: Vital Signs - 24 hr 01/08/17 01/08/17 01/09/17 19:05 20:06 00:48 Temperature 37.4 C 37.2 C Heart Rate 70 Heart Rate [ 72 75 Monitoring electrodes] Respiratory 18 20 22 Rate Blood Pressure 124/64 111/60 [Right Radial artery] O2 Saturation 95 96 01/09/17 01/09/17 01/09/17 04:15 07:23 16:19 Temperature 37.0 C 36.5 C 36.6 C Heart Rate Heart Rate [ 86 63 69 Monitoring electrodes] Respiratory 24 20 20 Rate Blood Pressure 145/91 H 118/61 126/73 [Right Radial artery] O2 Saturation 2 L 97 92 Oxygen O2 Source Room air I&O (Last 24 Hrs): Intake and Output Totals x24h 01/07/17 01/08/17 01/09/17 23:59 23:59 23:59 Intake Total 3992 5100 1010 Output Total 450 960 100 Balance 3542 4140 910 - Results Results: Laboratory Results WBC 8.7 x10^3/uL (4.8-10.8) 01/09/17 05:02 RBC 4.15 10^6/uL (4.20-5.40) L 01/09/17 05:02 Hgb 10.6 g/dL (12.0-16.0) L 01/09/17 05:02 Hct 33.9 % (37.0-47.0) L 01/09/17 05:02 MCV 81.6 fL (81.0-99.0) 01/09/17 05:02 MCH 25.6 pg (27.0-31.0) L 01/09/17 05:02 MCHC 31.4 g/dL (32.0-36.0) L 01/09/17 05:02 RDW 19.4 % (12.0-15.0) H 01/09/17 05:02 Plt Count 308 10^3/uL (130-450) 01/09/17 05:02 MPV 7.7 fL (7.9-10.8) L 01/09/17 05:02 Neut # 6.6 10^3/uL (1.5-6.6) 01/09/17 05:02 Lymph # 1.3 10^3/uL (1.5-3.5) L 01/09/17 05:02 [place] # 0.6 10^3/uL (0.0-1.0) 01/09/17 05:02 Eos # 0.1 10^3/uL (0.0-0.7) 01/09/17 05:02 Baso # 0.1 10^3/uL (0.0-0.1) 01/09/17 05:02 Absolute Nucleated RBC 0.00 x10^3/uL 01/09/17 05:02 Nucleated RBCs 0.0 /100WBC 01/09/17 05:02 PT 13.1 secs (9.9-12.6) H 01/07/17 05:35 INR 1.2 (0.8-1.2) 01/07/17 05:35 VBG pH 7.265 (7.31-7.41) L 01/08/17 06:00 Ionized Calcium 1.04 mmol/L (1.15-1.33) L 01/08/17 06:00 Sodium 139 mmol/L (135-145) 01/09/17 05:02 Potassium 3.7 mmol/L (3.5-5.0) 01/09/17 05:02 Chloride 106 mmol/L (101-111) 01/09/17 05:02 Carbon Dioxide 26 mmol/L (21-32) 01/09/17 05:02 Anion Gap 7.0 (6-13) 01/09/17 05:02 BUN 11 mg/dL (6-20) 01/09/17 05:02 Creatinine 0.5 mg/dL (0.4-1.0) 01/09/17 05:02 Estimated GFR (MDRD) 126 (>89) 01/09/17 05:02 Glucose 126 mg/dL (70-100) H 01/09/17 05:02 POC Whole Bld Glucose 123 mg/dL (70 - 100) H 01/08/17 21:43 Glycated Hemoglobin 6.6 % (4.6-6.2) H 01/08/17 05:45 Estim Average Glucose 143 (70-100) H 01/08/17 05:45 Lactic Acid 1.9 mmol/L (0.5-2.2) 01/07/17 05:35 Calcium 7.7 mg/dL (8.5-10.3) L 01/09/17 05:02 Ionized Calcium YES 01/07/17 08:00 Phosphorus 2.9 mg/dL (2.5-4.6) 01/09/17 05:02 Magnesium 1.5 mg/dL (1.7-2.8) L 01/09/17 05:02 Total Bilirubin 0.7 mg/dL (0.2-1.0) 01/09/17 05:02 AST 16 IU/L (10-42) 01/09/17 05:02 ALT 16 IU/L (10-60) 01/09/17 05:02 Alkaline Phosphatase 73 IU/L (42-121) 01/09/17 05:02 Troponin I < 0.04 ng/mL (<0.49) 01/08/17 05:45 Total Protein 5.9 g/dL (6.7-8.2) L 01/09/17 05:02 Albumin 3.1 g/dL (3.2-5.5) L 01/09/17 05:02 Globulin 2.8 g/dL (2.1-4.2) 01/09/17 05:02 Albumin/Globulin Ratio 1.1 (1.0-2.2) 01/09/17 05:02 Lipase 43 U/L (22-51) 01/06/17 00:09 TSH 6.36 uIU/mL (0.34-5.60) H 01/06/17 00:09 Urine Color YELLOW 01/07/17 03:54 Urine Clarity SL. CLOUDY (CLEAR) 01/07/17 03:54 Urine pH 6.5 PH (5.0-7.5) 01/07/17 03:54 Ur Specific [place] 1.015 (1.002-1.030) 01/07/17 03:54 Urine Protein 30 mg/dL (NEGATIVE) H 01/07/17 03:54 Urine Glucose (UA) 100 mg/dL (NEGATIVE) H 01/07/17 03:54 Urine Ketones NEGATIVE mg/dL (NEGATIVE) 01/07/17 03:54 Urine Occult Blood NEGATIVE (NEGATIVE) 01/07/17 03:54 Urine Nitrite NEGATIVE (NEGATIVE) 01/07/17 03:54 Urine Bilirubin NEGATIVE (NEGATIVE) 01/07/17 03:54 Urine Urobilinogen 0.2 (NORMAL) E.U./dL (NORMAL) 01/07/17 03:54 Ur Leukocyte Esterase NEGATIVE (NEGATIVE) 01/07/17 03:54 Urine RBC 0-5 /HPF (0-5) 01/07/17 03:54 Urine WBC 0-3 /HPF (0-5) 01/07/17 03:54 Ur Squamous Epith Cells RARE Squamous (<= Few) 01/07/17 03:54 Urine Bacteria Rare /HPF (None Seen) 01/07/17 03:54 Urine Casts 6-10 Hyaline Casts /LPF 01/07/17 03:54 Urine Mucus Moderate Strands 01/07/17 03:54 Ur Microscopic Review INDICATED 01/07/17 03:54 Urine Culture Comments NOT INDICATED 01/07/17 03:54 Salicylates < 6.0 mg/dL 01/06/17 00:09 Urine Opiates Screen NEGATIVE (NEGATIVE) 01/07/17 03:54 Ur Oxycodone Screen NEGATIVE (NEGATIVE) 01/07/17 03:54 Urine Methadone Screen NEGATIVE (NEGATIVE) 01/07/17 03:54 Ur Propoxyphene Screen NEGATIVE (NEGATIVE) 01/07/17 03:54 Acetaminophen < 10 ug/mL (10-30) L 01/06/17 00:09 Ur Barbiturates Screen NEGATIVE (NEGATIVE) 01/07/17 03:54 Ur Tricyclics Screen NEGATIVE (NEGATIVE) 01/07/17 03:54 Ur Phencyclidine Scrn NEGATIVE (NEGATIVE) 01/07/17 03:54 Ur Amphetamine Screen NEGATIVE (NEGATIVE) 01/07/17 03:54 U Methamphetamines Scrn NEGATIVE (NEGATIVE) 01/07/17 03:54 U Benzodiazepines Scrn POSITIVE (NEGATIVE) H 01/07/17 03:54 Urine Cocaine Screen NEGATIVE (NEGATIVE) 01/07/17 03:54 U Cannabinoids Screen NEGATIVE (NEGATIVE) 01/07/17 03:54 Ethyl Alcohol < 5.0 mg/dL 01/06/17 00:09 - Procedures Procedures: Procedures ARTHROCENTESIS (08/24/14) PACKED CELL TRANSFUSION (08/24/14) RONALD OF KNEE REPLACEMENT, PATELLAR COMPONENT (05/02/14) RONALD OF TOTAL KNEE REPLACEMENT, TIBIAL INSERT (LINER) (05/02/14) TOTAL KNEE REPLACEMENT (08/08/14) VENOUS CATHETERIZATION NEC (08/24/14)
[2017-01-09] MEDS: CHOLECALCIFEROL 1,000 UNIT TABLET PO SCH (21:29)
[2017-01-09] MEDS: ALPRAZolam 0.25 MG TABLET PO SCH (21:30)
[2017-01-09] MEDS: PRAMIPEXOLE 0.25 MG TABLET PO SCH (21:31)
[2017-01-10] MEDS: diazePAM 5 MG TABLET PO PRN (01:25)
[2017-01-10] MEDS: oxyCODONE 5 MG TABLET PO PRN ×3 (01:25→13:00)
[2017-01-10] MEDS: ASPIRIN EC 325 MG TABLET PO SCH ×3 (05:59→20:56)
[2017-01-10 06:03] LABS: BASOPHILS % (AUTO) 0.5 %; EOSINOPHILS # (AUTO) 0.1 10^3/uL (0.0-0.7); HCT - HEMATOCRIT 33.1 % (37.0-47.0); HGB - HEMOGLOBIN 10.6 g/dL (12.0-16.0); LYMPHOCYTES # (AUTO) 1.5 10^3/uL (1.5-3.5); MEAN CORPUSCULAR HEMOGLOBIN 26.1 pg (27.0-31.0); MEAN CORPUSCULAR HGB CONC 31.9 g/dL (32.0-36.0); MEAN CORPUSCULAR VOLUME 81.7 fL (81.0-99.0); MEAN PLATELET VOLUME 7.8 fL (7.9-10.8); MONOCYTES # (AUTO) 0.6 10^3/uL (0.0-1.0); MONOCYTES % (AUTO) 7.3 %; NEUTROPHILS # (AUTO) 5.6 10^3/uL (1.5-6.6); NEUTROPHILS % (AUTO) 72.2 %; RED BLOOD COUNT 4.05 10^6/uL (4.20-5.40); RED CELL DISTRIBUTION WIDTH 19.3 % (12.0-15.0); UNCORRECTED WHITE BLOOD COUNT 7.7 x10^3/uL; WHITE BLOOD COUNT 7.7 x10^3/uL (4.8-10.8)
[2017-01-10 06:10] LABS: ALBUMIN/GLOBULIN RATIO 1.1 (1.0-2.2); BILIRUBIN,TOTAL 0.5 mg/dL (0.2-1.0); CALCIUM 8.3 mg/dL (8.5-10.3); CREATININE 0.5 mg/dL (0.4-1.0); MAGNESIUM 1.5 mg/dL (1.7-2.8); PHOSPHORUS 3.5 mg/dL (2.5-4.6); POTASSIUM 3.7 mmol/L (3.5-5.0); TOTAL PROTEIN 5.7 g/dL (6.7-8.2)
[2017-01-10] MEDS: PANTOPRAZOLE 40 MG TABLET PO SCH (06:51)
[2017-01-10] MEDS: SODIUM CHLORIDE FLUSH 0.9% 10 ML SYRINGE IVP SCH ×3 (06:51→20:56)
--- NOTE | 2017-01-10 08:17 | PROVIDER PROGRESS NOTE ---
Subjective - Prog Note Date Prog Note Date: 01/10/17 Prog Note Time: 08:17 - Subjective Subjective: has been tentatively accepted to a bed at a [facility] but not to be able to go until Thursday or and final insurance autho is pending, today is Thursday. She is c/o back pain. Also with N/V. Refuses compazine and phenergan bc of a reaction. Is now on po so meds like zofran need to be change from IV to po. She has tried reglan in the past sucessfully. She is refusing her DT prophylaxis so no ASA or lovenox given. She is at risk for DVT bc of pain limiting her mobility and she doesn't get up much. Sulfasalazine was on her admit med list and she no longer takes it. Current Medications - Current Medications Current Medications: Active Medications Acetaminophen (Tylenol) 650 mg PO Q4HR PRN PRN Reason: Pain 1 to 4 Albuterol () 2.5 mg INH Q4HR PRN PRN Reason: Wheezing Alprazolam (Xanax) 0.5 mg PO QPM [facility] Last Admin: 01/09/17 21:30 Dose: 0.5 mg Aspirin (Ecotrin) 650 mg PO TID [facility] Last Admin: 01/10/17 05:59 Dose: Not Given Calcium Carbonate/Glycine (Tums) 500 mg PO BID [facility] Last Admin: 01/09/17 21:29 Dose: 500 mg Cholecalciferol (Vitamin D3) 1,000 unit PO QPM [facility] Last Admin: 01/09/17 21:29 Dose: 1,000 unit Diazepam (Valium) 5 mg PO TID PRN PRN Reason: Spasms Last Admin: 01/10/17 01:25 Dose: 5 mg Enoxaparin Sodium (Lovenox) 40 mg SUBQ DAILY [facility] Last Admin: 01/09/17 07:57 Dose: Not Given Fluoxetine HCl (Prozac) 20 mg PO DAILY [facility] Last Admin: 01/09/17 08:15 Dose: 20 mg Heparin Sodium (Beef Lung) () 30 - 50 unit IVP ONCE PRN PRN Reason: Central Line Protocol (<24 hr) Stop: 02/06/17 19:59 Last Admin: 01/07/17 21:30 Dose: 30 unit Lactobacil/Bifidobact/Streptococcus (Vsl#3) 1 cap PO DAILYWM [facility] Last Admin: 01/09/17 08:14 Dose: 1 cap Lidocaine (Lidoderm Patch) 1 patch TOP DAILY [facility] Last Admin: 01/09/17 08:15 Dose: 1 patch Magnesium Oxide (Mag Ox) 400 mg PO DAILYWM [facility] Metoclopramide HCl (Reglan) 10 mg PO TID PRN PRN Reason: Nausea / Vomiting Mineral Oil (Cavilon) 1 applic TOP PRN PRN PRN Reason: Skin Care Mupirocin (Bactroban 2% Oint) 1 applic TOP BID [facility] Last Admin: 01/09/17 21:30 Dose: 1 applic Nystatin (Nystop) 1 applic TOP DAILY [facility] Last Admin: 01/08/17 16:48 Dose: 1 applic Ondansetron HCl (Zofran Odt) 4 mg TL Q4HR PRN PRN Reason: Nausea / Vomiting Oxycodone HCl (Roxicodone) 5 mg PO Q4HR PRN PRN Reason: Pain 5 to 7 Last Admin: 01/10/17 06:51 Dose: 5 mg Oxycodone HCl (Roxicodone) 10 mg PO Q4HR PRN PRN Reason: PAIN Last Admin: 01/10/17 01:25 Dose: 10 mg Pantoprazole Sodium (Protonix) 40 mg PO QDAC [facility] Last Admin: 01/10/17 06:51 Dose: 40 mg Vitamin B Complex 1 each PO DAILY [facility] Last Admin: 01/09/17 08:16 Dose: Not Given Potassium Chloride (Micro-K) 20 meq PO DAILY PRN PRN Reason: NEEDED PER PROVIDER ORDERS Pramipexole Dihydrochloride (Mirapex) 0.25 mg PO HS [facility] Last Admin: 01/09/17 21:31 Dose: 0.25 mg Prednisone (Deltasone) 5 mg PO DAILY [facility] Last Admin: 01/09/17 08:16 Dose: 5 mg Sodium Chloride (Normal Saline Flush 0.9%) 10 ml IVP PRN PRN PRN Reason: NEEDED PER PROVIDER ORDERS Last Admin: 01/09/17 21:31 Dose: 10 ml Sodium Chloride (Normal Saline Flush 0.9%) 10 ml IVP Q8HR [facility] Last Admin: 01/10/17 06:51 Dose: 10 ml Sulfasalazine (Azulfidine) 1,500 mg PO BID [facility] Last Admin: 01/09/17 21:30 Dose: Not Given Zinc Sulfate () 220 mg PO DAILY [facility] Last Admin: 01/09/17 08:16 Dose: 220 mg Zolpidem Tartrate (Ambien) 5 mg PO QPM PRN PRN Reason: Insomnia Alprazolam 0.5 mg PO HS 05/29/13 Aspirin [Aspirin EC] 650 mg PO TID 05/29/13 Cholecalciferol (Vitamin D3) [Vitamin D3] 1,000 unit PO HS 05/29/13 FLUoxetine [PROzac] 20 mg PO DAILY 05/29/13 Furosemide [Lasix] 40 mg PO DAILY PRN 05/29/13 Metoprolol Tartrate 50 mg PO DAILY 05/29/13 Metoprolol Tartrate 100 mg PO HS 05/29/13 Potassium Chloride 20 meq PO DAILY PRN 05/29/13 Sulfasalazine [Sulfazine] 1,500 mg PO BID 05/29/13 Vitamin B Complex 1 each PO DAILY 05/29/13 predniSONE [Deltasone] 5 mg PO DAILY 05/29/13 Esomeprazole Magnesium [Nexium] 40 mg PO DAILY 05/01/14 Lactobacillus Acidophilus [Probiotic] 1 each PO DAILY 05/01/14 diphenhydrAMINE [Benadryl] 25 mg PO HS 05/01/14 Fluticasone 220 Mcg [Flovent] 1 spray IH DAILY 08/07/14 Hydroxyzine HCl 25 mg PO QID 08/07/14 Mupirocin 2% Oint [Bactroban 2% Oint] 1 applic TOP BID 08/07/14 Nystatin 1 each TOP DAILY 08/07/14 Zinc 50 mg PO BID 08/07/14 Objective - Vital Signs/Intake & Output Reviewed Vital Signs: Yes Vital Signs: Vital Signs x48h Temp Pulse Resp BP Pulse Ox 01/10/17 08:01 36.9 C 80 20 141/79 H 98 01/10/17 04:00 36.0 C L 68 20 128/80 97 01/10/17 00:25 37.1 C 71 18 129/98 H 90 L Intake & Output: Intake & Output 01/07/17 01/08/17 01/09/17 01/10/17 23:59 23:59 23:59 23:59 Intake Total 3992 5100 1010 300 Output Total 450 960 100 Balance 3542 4140 910 300 - Objective General Appearance: positive: Mild distress (with frowning fascies, mood depressed, morbidly obese white female who looks older than stated age.) Eyes Bilateral: positive: PERRL, EOMI ENT: positive: Pharynx nml Neck: positive: No JVD. negative: Lymphadenopathy (R), Lymphadenopathy (L) Respiratory: positive: Chest non-tender, Other (diminished at bases.). negative : Wheezes, Rales, Rhonchi Cardiovascular: positive: Regular rate & rhythm, No gallop. negative: Gallop/S4 , Friction rub Abdomen: positive: Non-tender, Nml bowel sounds, No distention, Other (large, large panus) Skin: positive: Warm, Dry Extremities: positive: Non-tender, No pedal edema. negative: Joint swelling Neurologic/Psychiatric: positive: Oriented x3, Motor nml, Facial droop, Slurred/ abnml speech, Depressed mood/affect. negative: Mood/affect nml - Lab Results Fish Bones: 01/10/17 05:03 01/10/17 05:03 Other Labs: Lab Results x24hrs 01/10/17 01/10/17 Range/Units 05:03 05:03 WBC 7.7 (4.8-10.8) x10^3/uL RBC 4.05 L (4.20-5.40) 10^6/uL Hgb 10.6 L (12.0-16.0) g/dL Hct 33.1 L (37.0-47.0) % MCV 81.7 (81.0-99.0) fL MCH 26.1 L (27.0-31.0) pg MCHC 31.9 L (32.0-36.0) g/dL RDW 19.3 H (12.0-15.0) % Plt Count 282 (130-450) 10^3/uL MPV 7.8 L (7.9-10.8) fL Neut # 5.6 (1.5-6.6) 10^3/uL Lymph # 1.5 (1.5-3.5) 10^3/uL [place] # 0.6 (0.0-1.0) 10^3/uL Eos # 0.1 (0.0-0.7) 10^3/uL Baso # 0.0 (0.0-0.1) 10^3/uL Absolute Nucleated RBC 0.00 x10^3/uL Nucleated RBCs 0.0 /100WBC Sodium 138 (135-145) mmol/L Potassium 3.7 (3.5-5.0) mmol/L Chloride 103 (101-111) mmol/L Carbon Dioxide 30 (21-32) mmol/L Anion Gap 5.0 L (6-13) BUN 9 (6-20) mg/dL Creatinine 0.5 (0.4-1.0) mg/dL Estimated GFR (MDRD) 126 (>89) Glucose 113 H (70-100) mg/dL Calcium 8.3 L (8.5-10.3) mg/dL Phosphorus 3.5 (2.5-4.6) mg/dL Magnesium 1.5 L (1.7-2.8) mg/dL Total Bilirubin 0.5 (0.2-1.0) mg/dL AST 14 (10-42) IU/L ALT 14 (10-60) IU/L Alkaline Phosphatase 72 (42-121) IU/L Total Protein 5.7 L (6.7-8.2) g/dL Albumin 3.0 L (3.2-5.5) g/dL Globulin 2.7 (2.1-4.2) g/dL Albumin/Globulin Ratio 1.1 (1.0-2.2) Assessment/Plan - Problem List (1) Overdose of antihypertensive agent Impression: she has bradycardia and hypotension present on admission from the metoprolol. Now resolved. Medically stable as of am of 01/09. other drugs taken were mirapex, metformin, fluoxetine. Qualifiers: Encounter type: subsequent encounter Injury intent: intentional self-harm Qualified Code(s): T46.5X2D - Poisoning by other antihypertensive drugs, intentional self-harm, subsequent encounter (2) Suicidal behavior with attempted self-injury Impression: she is still depressed. states she will try and kill herself is pain situation stays the way it is. right now minimally controlled on oral opiates. it is more the joint terminal attack controller picture that depresses her. we are awaiting final autho for a [facility]. medically cleared as of 7.28 am. (3) Controlled type 2 diabetes mellitus with complication Impression: controlled without need for dosing of insulin. A!c 6.6% Laboratory Tests 01/07/17 01/08/17 12:19 21:43 POC Whole Bld Glucose 135 H 123 H Qualifiers: Diabetes mellitus mcfp insulin use: without joint terminal attack controller use Qualified Code(s): E11.8 - Type 2 diabetes mellitus with unspecified complications (4) Chronic pain Impression: oxycodone 5-10 mg po q4hr prn Qualifiers: Chronic pain type: chronic pain syndrome Qualified Code(s): G89.4 - Chronic pain syndrome (5) Prophylactic use of low molecular weight heparin for venous thromboembolism Impression: refusing lovenox or ASA. will switch to SCD's. (6) Nausea & vomiting Impression: no abd pain. passing flatus. no fever or elevated WBC. try reglan, switch to SL zofran. (7) History of reactive arthritis Impression: from when she had shigella. was on sulfasalazine then. no longer. will have pharmacy correct list.
[2017-01-10] MEDS: ONDANSETRON 4 MG/2 ML VIAL IVP PRN (08:52)
[2017-01-10] MEDS ORDERED: METOCLOPRAMIDE 10 MG TABLET PO PRN (10:16)
[2017-01-10] MEDS: LIDOCAINE PATCH 5% TOP SCH (13:46)
[2017-01-10] MEDS: ONDANSETRON ODT 4 MG TABLET TL PRN ×2 (14:55→20:55)
[2017-01-10] MEDS: NYSTATIN POWDER 15 GM TOP SCH (14:55)
[2017-01-10] MEDS: ZINC SULFATE 220 MG CAPSULE PO SCH ×2 (14:56→17:27)
[2017-01-10] MEDS: sulfaSALAzine 500 MG TABLET PO SCH ×2 (14:56→20:56)
[2017-01-10] MEDS: predniSONE 5 MG TABLET PO SCH (14:57)
[2017-01-10] MEDS: LACTOB/S.THERMOPHL/BIFIDO CAPSULE PO SCH (14:57)
[2017-01-10] MEDS: FLUoxetine 10 MG CAPSULE PO SCH (14:57)
[2017-01-10] MEDS: ENOXAPARIN 40 MG/0.4 ML SYRINGE SUBQ SCH (14:57)
[2017-01-10] MEDS: MAGNESIUM OXIDE 400 MG TABLET PO SCH (14:58)
[2017-01-10] MEDS: MUPIROCIN 2% OINT 1 GM TOP SCH ×2 (16:00→20:56)
[2017-01-10] MEDS: CALCIUM CARBONATE CHEW 500 MG TABLET PO SCH ×2 (17:28→20:56)
[2017-01-10] MEDS ORDERED: HYDROcod/ACETAM 5/325 MG TABLET PO PRN (19:55)
[2017-01-10] MEDS: HYDROcod/ACETAM 10 MG/325 MG TABLET PO PRN (20:55)
[2017-01-10] MEDS: ALPRAZolam 0.25 MG TABLET PO SCH (20:55)
[2017-01-10] MEDS: CHOLECALCIFEROL 1,000 UNIT TABLET PO SCH (20:56)
[2017-01-10] MEDS: PRAMIPEXOLE 0.25 MG TABLET PO SCH (20:56)
[2017-01-11] MEDS: HYDROcod/ACETAM 10 MG/325 MG TABLET PO PRN ×4 (00:48→20:43)
[2017-01-11] MEDS: diazePAM 5 MG TABLET PO PRN (00:48)
[2017-01-11] MEDS: SODIUM CHLORIDE FLUSH 0.9% 10 ML SYRINGE IVP SCH ×3 (02:36→22:37)
[2017-01-11 06:53] LABS: BASOPHILS % (AUTO) 0.8 %; EOSINOPHILS # (AUTO) 0.1 10^3/uL (0.0-0.7); EOSINOPHILS % (AUTO) 0.9 %; HCT - HEMATOCRIT 33.6 % (37.0-47.0); HGB - HEMOGLOBIN 10.8 g/dL (12.0-16.0); LYMPHOCYTES # (AUTO) 1.3 10^3/uL (1.5-3.5); LYMPHOCYTES % (AUTO) 22.1 %; MEAN CORPUSCULAR HEMOGLOBIN 26.1 pg (27.0-31.0); MEAN CORPUSCULAR HGB CONC 32.2 g/dL (32.0-36.0); MEAN PLATELET VOLUME 7.1 fL (7.9-10.8); MONOCYTES # (AUTO) 0.5 10^3/uL (0.0-1.0); MONOCYTES % (AUTO) 7.9 %; NEUTROPHILS # (AUTO) 4.1 10^3/uL (1.5-6.6); NEUTROPHILS % (AUTO) 68.3 %; RED BLOOD COUNT 4.15 10^6/uL (4.20-5.40); RED CELL DISTRIBUTION WIDTH 19.9 % (12.0-15.0)
[2017-01-11 07:08] LABS: ALBUMIN/GLOBULIN RATIO 1.1 (1.0-2.2); BILIRUBIN,TOTAL 0.4 mg/dL (0.2-1.0); CALCIUM 8.5 mg/dL (8.5-10.3); CREATININE 0.5 mg/dL (0.4-1.0); MAGNESIUM 1.5 mg/dL (1.7-2.8); PHOSPHORUS 3.8 mg/dL (2.5-4.6); POTASSIUM 3.4 mmol/L (3.5-5.0); TOTAL PROTEIN 5.8 g/dL (6.7-8.2)
[2017-01-11] MEDS: ASPIRIN EC 325 MG TABLET PO SCH ×4 (07:24→22:37)
[2017-01-11] MEDS: ONDANSETRON ODT 4 MG TABLET TL PRN (07:24)
[2017-01-11] MEDS: PANTOPRAZOLE 40 MG TABLET PO SCH (07:24)
[2017-01-11] MEDS: sulfaSALAzine 500 MG TABLET PO SCH ×2 (09:00→20:49)
[2017-01-11] MEDS: MUPIROCIN 2% OINT 1 GM TOP SCH ×2 (09:00→20:44)
[2017-01-11] MEDS: CALCIUM CARBONATE CHEW 500 MG TABLET PO SCH ×2 (12:23→20:43)
[2017-01-11] MEDS: FLUoxetine 10 MG CAPSULE PO SCH (12:23)
[2017-01-11] MEDS: LACTOB/S.THERMOPHL/BIFIDO CAPSULE PO SCH (12:25)
[2017-01-11] MEDS: MAGNESIUM OXIDE 400 MG TABLET PO SCH (12:26)
[2017-01-11] MEDS: LIDOCAINE PATCH 5% TOP SCH (15:56)
[2017-01-11] MEDS: ENOXAPARIN 40 MG/0.4 ML SYRINGE SUBQ SCH (16:37)
[2017-01-11] MEDS: NYSTATIN POWDER 15 GM TOP SCH (17:06)
[2017-01-11] MEDS: predniSONE 5 MG TABLET PO SCH (17:26)
[2017-01-11] MEDS: ZINC SULFATE 220 MG CAPSULE PO SCH (17:27)
--- NOTE | 2017-01-11 19:09 | PROVIDER PROGRESS NOTE ---
Subjective - Prog Note Date Prog Note Date: 01/11/17 Prog Note Time: 19:08 - Subjective Pt reports feeling: No change Subjective: she is tearful. can't believe life has come to this. needs care bc can't take care of herself but doens't want to live with family or friends. hates idea of selling her house and using money for SNF then applying for medicaide. Current Medications - Current Medications Current Medications: Active Medications Acetaminophen (Tylenol) 650 mg PO Q4HR PRN PRN Reason: Pain 1 to 4 Acetaminophen/Hydrocodone Bitart ([place] 5/325) 1 tab PO Q4HR PRN PRN Reason: PAIN Acetaminophen/Hydrocodone Bitart ([place] 10 Mg/325 Mg) 1 tab PO Q4HR PRN PRN Reason: PAIN Last Admin: 01/11/17 12:31 Dose: 1 tab Albuterol () 2.5 mg INH Q4HR PRN PRN Reason: Wheezing Alprazolam (Xanax) 0.5 mg PO QPM [facility] Last Admin: 01/10/17 20:55 Dose: 0.5 mg Aspirin (Ecotrin) 650 mg PO TID [facility] Last Admin: 01/11/17 16:49 Dose: Not Given Calcium Carbonate/Glycine (Tums) 500 mg PO BID [facility] Last Admin: 01/11/17 12:23 Dose: 500 mg Cholecalciferol (Vitamin D3) 1,000 unit PO QPM [facility] Last Admin: 01/10/17 20:56 Dose: 1,000 unit Diazepam (Valium) 5 mg PO TID PRN PRN Reason: Spasms Last Admin: 01/11/17 00:48 Dose: 5 mg Enoxaparin Sodium (Lovenox) 40 mg SUBQ DAILY [facility] Last Admin: 01/11/17 16:37 Dose: Not Given Fluoxetine HCl (Prozac) 20 mg PO DAILY [facility] Last Admin: 01/11/17 12:23 Dose: 20 mg Heparin Sodium (Beef Lung) () 30 - 50 unit IVP ONCE PRN PRN Reason: Central Line Protocol (<24 hr) Stop: 02/06/17 19:59 Last Admin: 01/07/17 21:30 Dose: 30 unit Lactobacil/Bifidobact/Streptococcus (Vsl#3) 1 cap PO DAILYWM [facility] Last Admin: 01/11/17 12:25 Dose: 1 cap Lidocaine (Lidoderm Patch) 1 patch TOP DAILY [facility] Last Admin: 01/11/17 15:56 Dose: 1 patch Magnesium Oxide (Mag Ox) 400 mg PO DAILYWM [facility] Last Admin: 01/11/17 12:26 Dose: 400 mg Metoclopramide HCl (Reglan) 10 mg PO TID PRN PRN Reason: Nausea / Vomiting Last Admin: 01/10/17 15:19 Dose: 10 mg Mineral Oil (Cavilon) 1 applic TOP PRN PRN PRN Reason: Skin Care Mupirocin (Bactroban 2% Oint) 1 applic TOP BID [facility] Last Admin: 01/11/17 09:00 Dose: Not Given Nystatin (Nystop) 1 applic TOP DAILY [facility] Last Admin: 01/11/17 17:06 Dose: Not Given Ondansetron HCl (Zofran Odt) 4 mg TL Q4HR PRN PRN Reason: Nausea / Vomiting Last Admin: 01/11/17 07:24 Dose: 4 mg Pantoprazole Sodium (Protonix) 40 mg PO QDAC [facility] Last Admin: 01/11/17 07:24 Dose: 40 mg Vitamin B Complex 1 each PO DAILY [facility] Last Admin: 01/11/17 16:38 Dose: Not Given Potassium Chloride (Micro-K) 20 meq PO DAILY PRN PRN Reason: NEEDED PER PROVIDER ORDERS Pramipexole Dihydrochloride (Mirapex) 0.25 mg PO HS [facility] Last Admin: 01/10/17 20:56 Dose: 0.25 mg Prednisone (Deltasone) 5 mg PO DAILY [facility] Last Admin: 01/11/17 17:26 Dose: 5 mg Sodium Chloride (Normal Saline Flush 0.9%) 10 ml IVP PRN PRN PRN Reason: NEEDED PER PROVIDER ORDERS Last Admin: 01/09/17 21:31 Dose: 10 ml Sodium Chloride (Normal Saline Flush 0.9%) 10 ml IVP Q8HR [facility] Last Admin: 01/11/17 16:29 Dose: Not Given Sulfasalazine (Azulfidine) 1,500 mg PO BID [facility] Last Admin: 01/11/17 09:00 Dose: Not Given Zinc Sulfate () 220 mg PO DAILY [facility] Last Admin: 01/11/17 17:27 Dose: 220 mg Zolpidem Tartrate (Ambien) 5 mg PO QPM PRN PRN Reason: Insomnia Alprazolam 0.5 mg PO HS 05/29/13 Aspirin [Aspirin EC] 650 mg PO TID 05/29/13 Cholecalciferol (Vitamin D3) [Vitamin D3] 1,000 unit PO HS 05/29/13 FLUoxetine [PROzac] 20 mg PO DAILY 05/29/13 Furosemide [Lasix] 40 mg PO DAILY PRN 05/29/13 Metoprolol Tartrate 50 mg PO DAILY 05/29/13 Metoprolol Tartrate 100 mg PO HS 05/29/13 Potassium Chloride 20 meq PO DAILY PRN 05/29/13 Sulfasalazine [Sulfazine] 1,500 mg PO BID 05/29/13 Vitamin B Complex 1 each PO DAILY 05/29/13 predniSONE [Deltasone] 5 mg PO DAILY 05/29/13 Esomeprazole Magnesium [Nexium] 40 mg PO DAILY 05/01/14 Lactobacillus Acidophilus [Probiotic] 1 each PO DAILY 05/01/14 diphenhydrAMINE [Benadryl] 25 mg PO HS 05/01/14 Fluticasone 220 Mcg [Flovent] 1 spray IH DAILY 08/07/14 Hydroxyzine HCl 25 mg PO QID 08/07/14 Mupirocin 2% Oint [Bactroban 2% Oint] 1 applic TOP BID 08/07/14 Nystatin 1 each TOP DAILY 08/07/14 Zinc 50 mg PO BID 08/07/14 Objective - Vital Signs/Intake & Output Vital Signs: Vital Signs x48h Temp Pulse Pulse Resp BP Pulse Ox 01/11/17 15:48 36.6 C 78 16 137/76 H 94 01/11/17 13:36 36.5 C 89 20 159/69 H 93 Intake & Output: Intake & Output 01/08/17 01/09/17 01/10/17 01/11/17 23:59 23:59 23:59 23:59 Intake Total 5100 1010 750 440 Output Total 960 100 Balance 4140 910 750 440 - Objective General Appearance: positive: No acute distress, Alert, Other (morbidly obese, talkative white female) Eyes Bilateral: positive: PERRL ENT: positive: Pharynx nml Neck: negative: Lymphadenopathy (R), Lymphadenopathy (L), Stiff neck, Carotid bruit Respiratory: positive: Chest non-tender. negative: Wheezes, Rales, Rhonchi Cardiovascular: positive: Regular rate & rhythm. negative: Gallop/S4, Friction rub Abdomen: positive: Non-tender, No organomegaly, Nml bowel sounds, No distention , Other (huge obese panus) Extremities: positive: Non-tender, Pedal edema Neurologic/Psychiatric: positive: Oriented x3, CN's nml (2-12), Motor nml, Other (takes a struggle to sit up bc of panus) - Lab Results Fish Bones: 01/11/17 06:44 01/11/17 06:44 Other Labs: Lab Results x24hrs 01/11/17 01/11/17 01/11/17 Range/Units 08:46 06:44 06:44 WBC 6.0 (4.8-10.8) x10^3/uL RBC 4.15 L (4.20-5.40) 10^6/uL Hgb 10.8 L (12.0-16.0) g/dL Hct 33.6 L (37.0-47.0) % MCV 81.0 (81.0-99.0) fL MCH 26.1 L (27.0-31.0) pg MCHC 32.2 (32.0-36.0) g/dL RDW 19.9 H (12.0-15.0) % Plt Count 297 (130-450) 10^3/uL MPV 7.1 L (7.9-10.8) fL Neut # 4.1 (1.5-6.6) 10^3/uL Lymph # 1.3 L (1.5-3.5) 10^3/uL [place] # 0.5 (0.0-1.0) 10^3/uL Eos # 0.1 (0.0-0.7) 10^3/uL Baso # 0.0 (0.0-0.1) 10^3/uL Absolute Nucleated RBC 0.00 x10^3/uL Nucleated RBCs 0.0 /100WBC Sodium 139 (135-145) mmol/L Potassium 3.4 L (3.5-5.0) mmol/L Chloride 98 L (101-111) mmol/L Carbon Dioxide 34 H (21-32) mmol/L Anion Gap 7.0 (6-13) BUN 8 (6-20) mg/dL Creatinine 0.5 (0.4-1.0) mg/dL Estimated GFR (MDRD) 126 (>89) Glucose 117 H (70-100) mg/dL POC Whole Bld Glucose 107 H (70 - 100) mg/dL Calcium 8.5 (8.5-10.3) mg/dL Phosphorus 3.8 (2.5-4.6) mg/dL Magnesium 1.5 L (1.7-2.8) mg/dL Total Bilirubin 0.4 (0.2-1.0) mg/dL AST 14 (10-42) IU/L ALT 15 (10-60) IU/L Alkaline Phosphatase 75 (42-121) IU/L Total Protein 5.8 L (6.7-8.2) g/dL Albumin 3.0 L (3.2-5.5) g/dL Globulin 2.8 (2.1-4.2) g/dL Albumin/Globulin Ratio 1.1 (1.0-2.2) Assessment/Plan - Problem List (1) Overdose of antihypertensive agent Impression: she has bradycardia and hypotension present on admission from the metoprolol. Now resolved. Continues to be medically stable as of am of 01/09. other drugs taken were mirapex, metformin, fluoxetine. Qualifiers: Encounter type: subsequent encounter Injury intent: intentional self-harm Qualified Code(s): T46.5X2D - Poisoning by other antihypertensive drugs, intentional self-harm, subsequent encounter (2) Suicidal behavior with attempted self-injury Impression: she is still depressed but now states she doesn't want to kill herself. pain situation stays the way it is. right now minimally controlled on oral opiates. There is no [facility] bed available and Social service and I have both assessed her again. She wants to keep her back pain injection appointment tomorrow. will see if there is a bed available in am and reassess. (3) Controlled type 2 diabetes mellitus with complication Impression: controlled without need for dosing of insulin. A1c 6.6% Qualifiers: Diabetes mellitus director long term care insulin use: without director long term care use Qualified Code(s): E11.8 - Type 2 diabetes mellitus with unspecified complications (4) Chronic pain Impression: oxycodone 5-10 mg po q4hr prn. I had spoken to Dr. De La Rosa who was her previous PCP. The MANAGER [employer]PDESK in his office had managed to get this patient off all opiates. She left his practice to go to Dr Sam for financial reasons. Qualifiers: Chronic pain type: chronic pain syndrome Qualified Code(s): G89.4 - Chronic pain syndrome (5) Prophylactic use of low molecular weight heparin for venous thromboembolism Impression: refusing lovenox or ASA. switched to SCD's since yesterday and doing well with them (6) Nausea & vomiting Impression: no abd pain. passing flatus. no fever or elevated WBC. rare use of zofran since yesterday. may be resolving. (7) History of reactive arthritis Impression: from when she had shigella. was on sulfasalazine then. no longer. will have pharmacy correct list.
[2017-01-11] MEDS: PRAMIPEXOLE 0.25 MG TABLET PO SCH (20:43)
[2017-01-11] MEDS: ALPRAZolam 0.25 MG TABLET PO SCH (20:43)
[2017-01-11] MEDS: CHOLECALCIFEROL 1,000 UNIT TABLET PO SCH (20:49)
[2017-01-12] MEDS: HYDROcod/ACETAM 10 MG/325 MG TABLET PO PRN ×3 (01:20→08:33)
[2017-01-12 04:57] VITALS: BP 154/81
[2017-01-12] MEDS: SODIUM CHLORIDE FLUSH 0.9% 10 ML SYRINGE IVP SCH (06:36)
[2017-01-12] MEDS: ASPIRIN EC 325 MG TABLET PO SCH (06:37)
[2017-01-12] MEDS: ONDANSETRON ODT 4 MG TABLET TL PRN (06:42)
[2017-01-12] MEDS: PANTOPRAZOLE 40 MG TABLET PO SCH (06:42)
--- NOTE | 2017-01-12 07:38 | Discharge Plan ---
Discharge Plan Disposition: 01 Home, Self Care Condition: Good Diet: Regular Activity Restrictions: Activity as Tolerated Shower Restrictions: No Driving Restrictions: No Additional Instructions or Follow Up instructions: you were admitted because of an intentional overdose of multiple medications. you feel your chronic pain is not controlled and as long as it is not addressed you would kill yourself. while here you have stated that you no longer endorse wanting to kill yourself. you have made some plans for followup for pain with a back injection today, and will seek an appointment with a chronic pain clinic. As such, our social media analyst has done a mental health evaluation and feels you are safe to follow thru with your plans. Please followup with Dr. Sam so that she may guide the process through the chronic pain appointments for your. No Smoking: If you smoke, Please STOP! Call for help.
[2017-01-12] MEDS: LACTOB/S.THERMOPHL/BIFIDO CAPSULE PO SCH (07:55)
[2017-01-12] MEDS: MAGNESIUM OXIDE 400 MG TABLET PO SCH (07:57)
[2017-01-12] MEDS: FLUoxetine 10 MG CAPSULE PO SCH (07:57)
[2017-01-12] MEDS: sulfaSALAzine 500 MG TABLET PO SCH ×2 (07:57→08:39)
[2017-01-12] MEDS: CALCIUM CARBONATE CHEW 500 MG TABLET PO SCH (07:58)
[2017-01-12] MEDS: LIDOCAINE PATCH 5% TOP SCH (07:58)
[2017-01-12] MEDS: predniSONE 5 MG TABLET PO SCH (07:59)
[2017-01-12] MEDS: ZINC SULFATE 220 MG CAPSULE PO SCH (07:59)
--- NOTE | 2017-01-13 12:19 | DISCHARGE SUMMARY ---
DATE OF ADMISSION: 01/07/2017 DATE OF DISCHARGE: 01/12/2017 DISCHARGE DIAGNOSES: 1. Overdose of antihypertensive agent. 2. Overdose of multiple drugs. 3. Suicidal behavior with attempt self injury. 4. Controlled type 2 diabetes mellitus with complication without custodial use of insulin. 5. Chronic pain syndrome with significant psychosocial dysfunction. 6. Nausea and vomiting. 7. History of reactive arthritis. DISCHARGE MEDICATIONS: 1. Alprazolam 0.5 mg p.o. at bedtime. 2. Aspirin mg p.o. t.i.d. 3. Bactroban or Mupirocin application topically b.i.d. 4. Benadryl 25 mg p.o. at bedtime. 5. Prednisone 5 mg p.o. daily. 6. Fluticasone 1 spray inhalation daily. 7. Hydroxyzine 25 mg p.o. q.i.d. 8. Lasix 40 mg p.o. daily p.r.n. 9. Metoprolol 100 mg p.o. bedtime. and 50 mg in the morning. 10. Nexium 40 mg p.o. daily. 11. Nystatin powder to perineum. 12. Fluoxetine 20 mg daily. 13. Potassium 20 meq p.r.n. daily. 14. Probiotic 1 capsule daily. 15. Vitamin B complex daily. 16. Vitamin D 1000 units at bedtime. 17. Mirapex 0.25 mg at bedtime. She already had a prescription for Lidoderm patch, Valium, and Springer that were given to her in the em ergency room from earlier this year, but no longer has prescriptions. I explained to her that it is m y understanding she is no longer on opiates. She has been successfully taken off opiates and I will d ecline that at this time. Please see further instructions and dictated note. PRINCIPAL PROCEDURES: 1. Echocardiogram with mild concentric left ventricular hypertrophy, left ventricular systolic functi on 70-75%. Mildly abnormal right heart pressures, otherwise normal echo. 2. Chest x-ray with central catheter tip in the lower third SVC, borderline fluid overload. This was done for central line placement. 3. Urine tox screen. Negative for salicylates, acetaminophen or ethyl alcohol. Only positive for josefina odiazepines. A1c 6.6%. HOSPITAL COURSE: This is a pleasant morbidly obese 61-year-old female who has a very complicated past medical history. 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 She has chronic pain for years and was weaned off opioids by Luisa , TOÑO, and Dr Reji De La Rosa's office. She is to get an LESI in January 12. In order to get the injection she had to take as pirin which she was taking regularly for her chronic pain. She went to her primary care provider to g et opioids to control her pain because she was going to be stopping aspirin, and her primary care pro vider declined giving her a prescription. The patient said that she could not take it anymore, that t his final rejection was too much for her psychologically and she has been suffering with back pain fo r so long that she took a handful of pills including metoprolol, metformin, trazodone, Mirapex, fluox etine. [place] down there, but her son soni harris to visit. She told her son what she had done and immediately an ambulance was called and she was brought to the emergency room. In the emergency room she was awake and alert. Blood pressure was in t he low 100s systolic, but heart rate normal. Poison control was contacted and recommended jazmine morgan. She was monitored in the emergency room. Initial labs showed mild hypokalemia, hypomagnesemi a, but it may be chronic for her because she has chronic diarrhea. Lactic acid was 3.7 on metformin. After several hours and 3 liters of IV fluids the patient's blood pressure was not improving and gett ing worse to 80/60 with a heart rate into the 50's. She was admitted to the ICU for closer monitoring and had a central line placed prior to admission and was also given IV Glucagon to reverse the effec ts of the beta lisa. Throughout this time the patient remained awake and alert. The patient did well. She eventually recovered with her blood pressure and hypotension, and no longer needed monitoring in the ICU and transitioned to med/surg status, but needed one-on-one care because of her suicidal behavior. For the first couple days she said that she wanted more opiates, and as lo ng as her pain was not in control she would always try and kill herself. As time went on she changed her thought process and felt that now pain was tolerable. We were not giving her much more than oxyco done p.r.n. She really, really was anxious to get to her LESI on January 12. Was now stating that she had no intention of killing herself at this time. During her stay her diabetes was controlled, A1c wa s 6.6%. She received Lovenox for DVT prophylaxis. She had nausea and vomiting which was controlled wi th Zofran and Reglan. She noted that even though sulfasalizine was on her medication list that was in correct and needed to be taken off of her list. We attempted several times to get geropsych availability when she was still stating she was suicidal. On the day of discharge geropsych bed was still not available and the patient said she was no longer suicidal. She was evaluated by nursing home social worker every day for the 3 days prior to discharge where she c ontinued to reiterate she did not want to kill herself at this time. As such, she was discharged in s table condition. Strongly encouraged to seek psychological counseling, chronic pain management clinic evaluation, and to follow up with her primary care provider, Shantell Sam in the next 1 to 2 weeks. Temperature was 36.8, pulse 77, blood pressure 154/81, respirations 18, 95% on room air. Stocky, morb idly overweight white female who moved slowly with plotting gait, but no ataxia. Lungs with diminishe d breath sounds at the bases, but clear. A regular rate and rhythm. An obese belly with a pannus that had evidence of old kemi, but otherwise stable. Mild trace edema around her legs. No ataxia. JOB #: [id number] EXT JOB #:[id number]
== END 2017-01-12 08:39 | disposition home or self-care (01) | DRG 918 ==
LOC: EDUNIT# → SUPCPDRO 23:12 → ED 23:12 → ICU 01-07 02:33 → MS3 01-11 01:50
PROVIDERS: ADMIT Internal Medicine; ATTEND Specialist
DX: T50.902A Poisoning by unspecified drugs, medicaments and biological substances, intentional self-harm, initial encounter (principal); R00.0 Tachycardia, unspecified; G89.29 Other chronic pain; T44.7X2A Poisoning by beta-adrenoreceptor antagonists, intentional self-harm, initial encounter; M02.30 Reiter's disease, unspecified site; E24.2 Drug-induced Cushing's syndrome; E11.9 Type 2 diabetes mellitus without complications; Z68.42 Body mass index [BMI] 45.0-49.9, adult; T38.3X2A Poisoning by insulin and oral hypoglycemic [antidiabetic] drugs, intentional self-harm, initial encounter; T43.212A Poisoning by selective serotonin and norepinephrine reuptake inhibitors, intentional self-harm, initial encounter; T42.8X2A Poisoning by antiparkinsonism drugs and other central muscle-tone depressants, intentional self-harm, initial encounter; T43.222A Poisoning by selective serotonin reuptake inhibitors, intentional self-harm, initial encounter; I95.2 Hypotension due to drugs; Z87.891 Personal history of nicotine dependence; R00.1 Bradycardia, unspecified; E87.6 Hypokalemia; E83.42 Hypomagnesemia; G89.4 Chronic pain syndrome; M54.2 Cervicalgia; M54.5 Low back pain; R11.2 Nausea with vomiting, unspecified; G90.2 Horner's syndrome; G50.0 Trigeminal neuralgia; E09.8 Drug or chemical induced diabetes mellitus with unspecified complications; T38.0X5S Adverse effect of glucocorticoids and synthetic analogues, sequela; I27.2 Other secondary pulmonary hypertension; G47.00 Insomnia, unspecified; I11.0 Hypertensive heart disease with heart failure; I50.9 Heart failure, unspecified; K58.0 Irritable bowel syndrome with diarrhea; F32.9 Major depressive disorder, single episode, unspecified; F41.9 Anxiety disorder, unspecified; F42.9 Obsessive-compulsive disorder, unspecified; E28.2 Polycystic ovarian syndrome; E66.01 Morbid (severe) obesity due to excess calories; K21.9 Gastro-esophageal reflux disease without esophagitis; F17.210 Nicotine dependence, cigarettes, uncomplicated; Z66 Do not resuscitate; Z96.659 Presence of unspecified artificial knee joint; Z79.82 Long term (current) use of aspirin; Z79.52 Long term (current) use of systemic steroids; Z86.19 Personal history of other infectious and parasitic diseases; Z79.84 Long term (current) use of oral hypoglycemic drugs; Z90.49 Acquired absence of other specified parts of digestive tract; Z90.710 Acquired absence of both cervix and uterus
CPT/HCPCS: 36415; 36556; 71010; 80053; 80306; 80307; 80320; 80329; 81001; 81003; 82310; 82330; 83036; 83605; 83690; 83735; 84100; 84443; 84484; 85025; 85610; 87086; 87150; 87493; 93005; 93306; 96365; 96375; 99285; 99291

== ENCOUNTER 2017-02-05 11:02 | Outpatient (CLI) | payer MEDICARE ==
[2017-02-05] MEDS ORDERED: IOPAMIDOL-300 50 ML VIAL PO ONE (13:58)
[2017-02-05] MEDS ORDERED: IOPAMIDOL-300 100 ML VIAL IVP ONE (13:58)
--- NOTE | 2017-02-05 16:25 | CT Report ---
EXAM: CT ABDOMEN AND PELVIS EXAM DATE: 02/05/2017 01:59 PM. CLINICAL HISTORY: RUQ PAIN, FATTY LIVER, PAIN IN THORACIC SPINE. COMPARISONS: 17 September 2011. TECHNIQUE: Routine helical CT imaging was performed through the abdomen and pelvis. IV contrast: 100 cc Isovue-300. Enteric contrast: Yes. Reconstructions: Coronal and sagittal. In accordance with CT protocol optimization, one or more of the following dose reduction techniques w ere utilized for this exam: automated exposure control, adjustment of mA and/or KV based on patient s ize, or use of iterative reconstructive technique. FINDINGS: Lung Bases: Unremarkable. Liver: Tiny calcified granuloma. No masses. 19 mm nodule adjacent to anterior right lobe of liver wit h peripheral calcification, unchanged. Gallbladder/Bile Ducts: Surgically absent. No ductal dilation. Spleen: Normal. Pancreas: Normal. Adrenal Glands: Normal. Kidneys: Normal. No masses or hydronephrosis. Peritoneal Cavity/Bowel: No bowel dilation. No free fluid, free air, or lymphadenopathy. Unremarkable region of appendix. Narrow and possibly cystic structure in anterior abdomen associated with the abd ominal wall measuring about 6.4 x 5.5 cm and about 0.9 cm in maximum thickness. This bulges slightly into the anterior abdominal wall as seen on sagittal images and may protrude through it. Adjacent ant erior abdominal wall hernia with fat involvement only. Pelvic Organs: Normal urinary bladder. Absent uterus. Vasculature: No aneurysms or other significant abnormality. Bones: No significant abnormality. Other: None. IMPRESSION: 1. Soft tissue or cystic structure along anterior surface of anterior abdominal wall, possibly a prev ious hernia repair device. 2. Adjacent anterior abdominal wall hernia with fat involvement only. 3. No change of small peripherally calcified nodule adjacent to liver. Other chronic findings as note nicole ÁLVAREZ Referring Provider Line: [phone] SITE ID: [id number]
--- NOTE | 2017-02-05 18:17 | CT Report ---
CT THORACIC SPINE: 02/05/2017 CLINICAL INDICATION: Pain. Axial CT images of the thoracic spine were obtained without intravenous contrast. Sagittal and coron al reconstructions were performed. In accordance with CT protocol optimization, one or more of the following dose reduction techniques w ere utilized for this exam: automated exposure control, adjustment of mA and/or KV based on patient size, or use of iterative reconstructive technique. The thoracic vertebral bodies demonstrate normal height and alignment. Degenerative disk disease is present. There is no evidence of fracture or subluxation. No paraspinal hematoma is seen. IMPRESSION: MILD DEGENERATIVE DISK DISEASE. NO EVIDENCE OF FRACTURE OR SPINAL STENOSIS. JOB #: [id number] EXT JOB #:[id number]
== END 2017-02-05 11:03 | disposition home or self-care (01) ==
LOC: DI 11:02
PROVIDERS: ATTEND Internal Medicine
DX: K43.9 Ventral hernia without obstruction or gangrene (principal); M51.34 Other intervertebral disc degeneration, thoracic region; E11.9 Type 2 diabetes mellitus without complications; E24.0 Pituitary-dependent Cushing's disease
CPT/HCPCS: 72128; 74177; Q9967

== ENCOUNTER 2017-03-26 17:48 | Outpatient (CLI) | payer MEDICARE | END 2017-03-26 17:49 | disposition critical access hospital (66) | LOC: EMS 17:48 | PROVIDERS: ATTEND Surgery | DX: R22.0 Localized swelling, mass and lump, head (principal) | CPT/HCPCS: A0425; A0429 ==

== ENCOUNTER 2017-03-26 17:59 | Emergency (ER) | payer MEDICARE ==
[2017-03-26 18:09] VITALS: BP 156/74
[2017-03-26] MEDS ORDERED: HYDROcod/ACETAM 5/325 MG TABLET PO STA (18:15)
[2017-03-26] MEDS ORDERED: SULFAMETH/TRIMETH DS 800/160 MG TABLET PO STA (18:16)
--- NOTE | 2017-03-26 18:17 | ED Physician Documentation ---
PD HPI HEENT - Stated complaint Stated Complaint: FACIAL SWELLING - Chief complaint Chief Complaint: Heent - History obtained from History obtained from: Patient - History of Present Illness Timing - onset: Other (61-year-old with a complicated autoimmune history presents with increasing right facial pain and swelling with a sweat today. She is on high-dose steroids currently for what is thought to be temporal arteritis.) Review of Systems Constitutional: reports: Chills, Sweats. denies: Fever Nose: denies: Rhinorrhea / runny nose, Congestion Throat: denies: Sore throat Cardiac: denies: Chest pain / pressure, Palpitations PD PAST MEDICAL HISTORY - Past Medical History Past Medical History: Yes Cardiovascular: Congestive heart failure, Hypertension Respiratory: Other Neuro: Other Endocrine/Autoimmune: None GI: GERD, Colon polyps, Chronic diarrhea, Other : Incontinence HEENT: Chronic vision loss, Chronic sinusitis Psych: Depression, Anxiety, Obsessive compulsive disorder Musculoskeletal: Osteoarthritis Derm: Other - Past Surgical History Past Surgical History: Yes General: Cholecystectomy, Appendectomy, Bowel surgery, Other Ortho: Knee replacement /[employer]: 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, Oophrectomy Cardiovascular: Cardiac catheterization HEENT: Tonsil/Adenoidectomy - Present Medications Home Medications: Ambulatory Orders Medication Instructions Recorded Confirmed Alprazolam 0.5 mg PO HS 05/29/13 03/26/17 Aspirin [Aspirin EC] 650 mg PO TID 05/29/13 03/26/17 Cholecalciferol (Vitamin D3) 1,000 unit PO HS 05/29/13 03/26/17 [Vitamin D3] FLUoxetine [PROzac] 20 mg PO DAILY 05/29/13 03/26/17 Furosemide [Lasix] 40 mg PO DAILY PRN 05/29/13 03/26/17 Metoprolol Tartrate 50 mg PO BID 05/29/13 03/26/17 Potassium Chloride 20 meq PO DAILY PRN 05/29/13 03/26/17 Esomeprazole Magnesium [Nexium] 40 mg PO DAILY 05/01/14 03/26/17 Fluticasone 220 Mcg [Flovent] 1 spray IH DAILY 08/07/14 03/26/17 Nystatin 1 each TOP DAILY 08/07/14 03/26/17 Zinc 50 mg PO BID 08/07/14 03/26/17 Pramipexole [Mirapex] 0.25 mg PO HS #30 tablet 09/24/16 03/26/17 Cetirizine [ZyrTEC] 10 mg PO DAILY 03/03/17 03/26/17 Glimepiride 1 mg PO DAILY 03/03/17 03/26/17 Trazodone HCl 100 mg PO QPM 03/03/17 03/26/17 guaiFENesin [Mucinex] 1,200 mg PO QPM 03/03/17 03/26/17 metFORMIN [Glucophage] 500 mg PO BID 03/03/17 03/26/17 predniSONE [Deltasone] 120 mg PO DAILY 03/03/17 03/26/17 HYDROcod/ACETAM 5/325 [Harlan 5/325] 1 - 2 ea PO Q6H PRN #15 tablet 03/26/17 Sulfamethoxazole/Trimethoprim 1 each PO BID 10 Days tablet 03/26/17 [Sulfamethoxazole-Tmp Ds Tablet] - Allergies Allergies/Adverse Reactions: Allergies Allergy/AdvReac Type Severity Reaction Status Date / Time droperidol [From Inapsine] Allergy Severe EPS Verified 10/18/16 01:38 ibuprofen [From Motrin] Allergy Severe Anaphylaxis Verified 10/18/16 01:38 peanut Allergy Severe Anaphylaxis Verified 10/18/16 01:38 shellfish derived Allergy Severe Anaphylaxis Verified 10/18/16 01:38 Rcaciqe-Noj-Pra Reductase Allergy Severe muscle pain Verified 10/18/16 01:38 Inhibitor amoxicillin [Amoxicillin] Allergy Intermediate Hives Verified 10/18/16 01:38 cefazolin Allergy Intermediate Hives Verified 10/18/16 01:38 Cephalosporins Allergy Intermediate Hives Verified 10/18/16 01:38 clindamycin Allergy Intermediate Hives Verified 10/18/16 01:38 cyclobenzaprine Allergy Intermediate Hives/night Verified 10/18/16 01:38 [Cyclobenzaprine] castaneda erythromycin base Allergy Intermediate Hives Verified 10/18/16 01:38 [Erythromycin Base] potassium clavulanate * Allergy Intermediate Hives Verified 10/18/16 01:38 [From Augmentin] ketorolac tromethamine * Allergy Anaphylaxis Verified 10/18/16 01:49 [From Toradol] duloxetine AdvReac Severe Suicidal Verified 10/18/16 01:38 etanercept [From Enbrel] AdvReac Severe Nausea/vomm Verified 10/18/16 01:38 iting/cramp s methotrexate AdvReac Severe N/V/Cramps Verified 10/18/16 01:38 NSAIDS (Non-Steroidal AdvReac Severe N/V/Cramps Verified 10/18/16 01:38 Anti-Inflamma prochlorperazine AdvReac Severe EPS Verified 10/18/16 01:38 pseudoephedrine AdvReac Severe Tachycardia Verified 10/18/16 01:38 sumatriptan AdvReac Severe Widened QRS Verified 10/18/16 01:38 doxycycline AdvReac Intermediate Hives Verified 10/18/16 01:38 gabapentin AdvReac Intermediate Gait Verified 10/18/16 01:38 disturbance latex AdvReac Intermediate Sensitivity Verified 10/18/16 01:38 prochlorperazine edisylate * AdvReac Unknown Verified 01/08/17 00:48 [From Compazine] prochlorperazine maleate * AdvReac Unknown Verified 01/08/17 00:48 [From Compazine] Tape AdvReac Severe Blisters Uncoded 10/18/16 01:38 - Social History Does the pt smoke?: No Smoking Status: Never smoker Does the pt drink ETOH?: Yes Does the pt have substance abuse?: No - Immunizations Immunizations are current?: Yes - POLST Patient has POLST: Yes POLST Status: DNR PD ED PE NORMAL - Vitals Vital signs reviewed: Yes - General General: Alert and oriented X 3, No acute distress - HEENT HEENT: Other (Mild right-sided facial swelling, she has a large pointed gingival abscess over the right maxillary canine that is the source of the swelling.) - Neck Neck: Supple, no meningeal sign, No bony TTP - Neuro Neuro: Alert and oriented X 3, Normal speech - Psych Psych: Normal mood, Normal affect Results - Vitals Vitals: Vital Signs - 24 hr 03/26/17 18:06 Temperature 36.1 C L Heart Rate 85 Respiratory 17 Rate Blood Pressure 156/74 H O2 Saturation 96 Oxygen O2 Source [Without Activity] Room air O2 Source Room air Procedures - Abscess I&D (location) Dental, R mandibular gingiva Preparation: Lidocaine 1% Incision: Incised with scalpel, Purulent drainage, Loculations broken Other: Pt tolerated well, Dressing applied PD MEDICAL DECISION MAKING - ED course ED course: 61-year-old woman on high-dose prednisone presents with facial swelling that is found to be due to a pointed dental abscess which is incised and drained. Antibiotic choices are somewhat limited by allergies, she is taken Bactrim for dental issues before without issue. Departure - Departure Disposition: 01 Home, Self Care Clinical Impression: Dental abscess Condition: Good Record reviewed to determine appropriate education?: Yes Instructions: ED Abscess Dental Prescriptions: HYDROcod/ACETAM 5/325 [Harlan 5/325] 1 - 2 ea PO Q6H PRN #15 tablet PRN Reason: Pain Sulfamethoxazole/Trimethoprim [Sulfamethoxazole-Tmp Ds Tablet] 1 each PO BID 10 Days tablet Comments: It is very important that she follow-up with a dentist. When it comes to dental problems like yours, the emergency department can only offer a short- term solution to your long-term problem. A couple of low cost options for dental care include: [facility] in [place], calls [phone] for an appointment Or [facility] in [place], call [phone] for an appointment. Your blood pressure was elevated today on check into the emergency department. This does not mean that you have hypertension, it is a common phenomenon to come to the emergency department and have elevated blood pressure. I recommend that she see your primary care physician within the week to have it rechecked when you are feeling better.
[2017-03-26] MEDS ORDERED: BUFFERED LIDOCAINE 10 ML SYRINGE ONE (18:21)
[2017-03-26] MEDS ORDERED: SULFAMETH/TRIMETH DS 800/160 MG TABLET PO ONE (18:27)
[2017-03-26] MEDS ORDERED: HYDROcod/ACETAM 5/325 MG TABLET ONE (18:27)
== END 2017-03-26 19:34 | disposition home or self-care (01) ==
LOC: EDUNIT# → ED 17:59
DX: K04.7 Periapical abscess without sinus (principal); I11.0 Hypertensive heart disease with heart failure; I50.9 Heart failure, unspecified; Z79.82 Long term (current) use of aspirin; Z96.659 Presence of unspecified artificial knee joint
CPT/HCPCS: 41800; 99283; A9270

== ENCOUNTER 2017-04-01 11:01 | Outpatient (CLI) | payer MEDICARE ==
--- NOTE | 2017-04-01 12:02 | CT Report ---
CT OF SINUSES WITHOUT CONTRAST: 04/01/2017 CLINICAL INDICATION: High dose steroids, question abscess. TECHNIQUE: Axial CT images of the paranasal sinuses were obtained without contrast, following which sagittal and coronal reconstructions were performed. FINDINGS: The paranasal sinuses are clear. The visualized intraorbital contents are unremarkable. No drainable abscess collection is identified. No osseous destruction is seen. The nasal septum is midline. IMPRESSION: NORMAL SINUSES. NO EVIDENCE OF A DRAINABLE ABSCESS COLLECTION. In accordance with CT protocol optimization, one or more of the following dose reduction techniques were utilized for this exam: automated exposure control, adjustment of mA and/or KV based on patient size, or use of iterative reconstructive technique. JOB #: [id number] EXT JOB #: [id number] MTDTristin
== END 2017-04-01 11:02 | disposition home or self-care (01) ==
LOC: DI 11:01
PROVIDERS: ATTEND Internal Medicine
DX: J01.90 Acute sinusitis, unspecified (principal)
CPT/HCPCS: 70486

== ENCOUNTER 2017-05-14 15:32 | Emergency (ER) | payer MEDICARE ==
[2017-05-14] MEDS ORDERED: oxyCOD/ACETAMIN 5 MG/325 MG TABLET PO STA (16:11)
[2017-05-14] MEDS ORDERED: oxyCOD/ACETAMIN 5 MG/325 MG TABLET PO ONE (16:30)
[2017-05-14] MEDS ORDERED: DEXAMETHASONE 10 MG/ML VIAL PO STA (16:43)
[2017-05-14] MEDS ORDERED: DEXAMETHASONE 10 MG/ML VIAL ONE (16:58)
--- NOTE | 2017-05-14 17:12 | CT Preliminary Report ---
Exam: CT CERVICAL SPINE W/O IMPRESSION: Normal cervical spine CT. [facility] SITE ID: [id number]
--- NOTE | 2017-05-14 17:15 | CT Report ---
EXAM: CT CERVICAL SPINE WITHOUT CONTRAST DATE: 05/14/2017 04:40 PM. HISTORY: Neck pain after twisting neck. 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 COMPARISONS: None. TECHNIQUE: Thin-section axial images were acquired of the cervical spine without contrast. Post-proce ssing: Coronal and sagittal reformats. Other: None. In accordance with CT protocol optimization, one or more of the following dose reduction techniques w ere utilized for this exam: automated exposure control, adjustment of mA and/or KV based on patient s ize, or use of iterative reconstructive technique. FINDINGS: Alignment: No scoliosis or spondylolisthesis. Bones: No fracture or bone lesion. Interspace Levels/Facets: C1-C2: Unremarkable. C2-C3: Unremarkable. C3-C4: Unremarkable. C4-C5: Unremarkable. C5-C6: Unremarkable. C6-C7: Unremarkable. C7-T1: Unremarkable. Musculature: Normal. No fatty atrophy. Other: The paravertebral and prevertebral soft tissues are unremarkable. The lung apices are clear. IMPRESSION: Normal cervical spine CT. [facility] Referring Provider Line: [phone] SITE ID: [id number]
--- NOTE | 2017-05-14 17:52 | ED Physician Documentation ---
PD HPI HEADACHE - Stated complaint Stated Complaint: HEADACHE/STIFF NECK - Chief complaint Chief Complaint: Neuro - History obtained from History obtained from: Patient, Friend - History of Present Illness Timing - onset: Last night Timing - details: Still present Worst headache ever?: Worst headache ever? (no) Location: Global Associated symptoms: Stiff neck, Nausea, Vomiting (once). No: Fever, Weakness, Numbness Contributing factors: Other (Severe arthritis.) - Additional information Additional information: The patient is a 62-year-old female who presents with neck pain that started yesterday and has been getting worse today. It is worse with movement of her arms or her head. She denies any traumatic injury. She denies fever. She does report headache which she has had for the past month. She reports nausea today with 1 episode of vomiting. She has a history of severe arthritis for which she is on prednisone 60 mg daily. She has a past history of narcotic addiction, but has successfully weaned herself off narcotic medication, except for an occasional Percocet. Review of Systems Constitutional: denies: Fever Eyes: denies: Irritation Ears: denies: Tinnitus/ringing Nose: denies: Congestion Throat: denies: Sore throat Cardiac: denies: Chest pain / pressure Respiratory: denies: Dyspnea, Cough GI: reports: Nausea, Vomiting (once today..). denies: Abdominal Pain : denies: Dysuria Skin: denies: Rash Musculoskeletal: reports: Neck pain, Joint pain (chronically) Neurologic: reports: Generalized weakness, Headache. 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 Cardiovascular: Cardiac catheterization HEENT: Tonsil/Adenoidectomy - Present Medications Home Medications: Ambulatory Orders Medication Instructions Recorded Confirmed Aspirin [Aspirin EC] 650 mg PO QID 05/29/13 05/14/17 FLUoxetine [PROzac] 20 mg PO DAILY 05/29/13 05/14/17 Furosemide [Lasix] 40 mg PO DAILY PRN 05/29/13 05/14/17 Metoprolol Tartrate 50 mg PO BID 05/29/13 05/14/17 Potassium Chloride 20 meq PO DAILY PRN 05/29/13 05/14/17 Esomeprazole Magnesium [Nexium] 40 mg PO DAILY 05/01/14 05/14/17 Fluticasone 220 Mcg [Flovent] 1 spray IH DAILY 08/07/14 05/14/17 Nystatin 1 each TOP DAILY 08/07/14 05/14/17 Cetirizine [ZyrTEC] 10 mg PO DAILY 03/03/17 05/14/17 Glimepiride 1 mg PO DAILY 03/03/17 05/14/17 guaiFENesin [Mucinex] 1,200 mg PO BID 03/03/17 05/14/17 metFORMIN [Glucophage] 500 mg PO BID 03/03/17 05/14/17 HYDROcod/ACETAM 5/325 [Vicodin 1 - 2 ea PO Q6H PRN #6 tablet 05/14/17 5/325] predniSONE [Prednisone] 60 mg PO DAILY 05/14/17 05/14/17 - Allergies Allergies/Adverse Reactions: Allergies Allergy/AdvReac Type Severity Reaction Status Date / Time droperidol [From Inapsine] Allergy Severe EPS Verified 10/18/16 01:38 ibuprofen [From Motrin] Allergy Severe Anaphylaxis Verified 10/18/16 01:38 peanut Allergy Severe Anaphylaxis Verified 10/18/16 01:38 shellfish derived Allergy Severe Anaphylaxis Verified 10/18/16 01:38 [id number] Reductase Allergy Severe muscle pain Verified 10/18/16 01:38 Inhibitor amoxicillin [Amoxicillin] Allergy Intermediate Hives Verified 10/18/16 01:38 cefazolin Allergy Intermediate Hives Verified 10/18/16 01:38 Cephalosporins Allergy Intermediate Hives Verified 10/18/16 01:38 clindamycin Allergy Intermediate Hives Verified 10/18/16 01:38 cyclobenzaprine Allergy Intermediate Hives/night Verified 10/18/16 01:38 [Cyclobenzaprine] castaneda erythromycin base Allergy Intermediate Hives Verified 10/18/16 01:38 [Erythromycin Base] potassium clavulanate * Allergy Intermediate Hives Verified 10/18/16 01:38 [From Augmentin] ketorolac tromethamine * Allergy Anaphylaxis Verified 10/18/16 01:49 [From Toradol] duloxetine AdvReac Severe Suicidal Verified 10/18/16 01:38 etanercept [From Enbrel] AdvReac Severe Nausea/vomm Verified 10/18/16 01:38 iting/cramp s methotrexate AdvReac Severe N/V/Cramps Verified 10/18/16 01:38 NSAIDS (Non-Steroidal AdvReac Severe N/V/Cramps Verified 10/18/16 01:38 Anti-Inflamma prochlorperazine AdvReac Severe EPS Verified 10/18/16 01:38 pseudoephedrine AdvReac Severe Tachycardia Verified 10/18/16 01:38 sumatriptan AdvReac Severe Widened QRS Verified 10/18/16 01:38 doxycycline AdvReac Intermediate Hives Verified 10/18/16 01:38 gabapentin AdvReac Intermediate Gait Verified 10/18/16 01:38 disturbance latex AdvReac Intermediate Sensitivity Verified 10/18/16 01:38 prochlorperazine edisylate * AdvReac Unknown Verified 01/08/17 00:48 [From Compazine] prochlorperazine maleate * AdvReac Unknown Verified 01/08/17 00:48 [From Compazine] Tape AdvReac Severe Blisters Uncoded 10/18/16 01:38 - Social History Does the pt smoke?: Yes Smoking Status: Current every day smoker Does the pt drink ETOH?: Yes Does the pt have substance abuse?: No - Immunizations Immunizations are current?: Yes - POLST Patient has POLST: Yes POLST Status: DNR PD ED PE NORMAL - Vitals Vital signs reviewed: Yes (normal) - General General: Alert and oriented X 3, Well developed/nourished, Other (Overweight, somewhat debilitated female sitting in a wheelchair.) - HEENT HEENT: Atraumatic, EOMI, Ears normal, Pharynx benign - Neck Neck: Supple, no meningeal sign, No adenopathy, No JVD, Other (There is tenderness to palpation of the paracervical musculature bilaterally, but no meningismus on physical exam.) - Cardiac Cardiac: RRR, No murmur - Respiratory Respiratory: No respiratory distress, Clear bilaterally - Abdomen Abdomen: Soft, Non tender - Back Back: No CVA TTP - Derm Derm: No rash - Extremities Extremities: No edema, No calf tenderness / cord - Neuro Neuro: Alert and oriented X 3, No motor deficit, Normal speech Results - Vitals Vitals: Oxygen O2 Source [] Room air O2 Source Room air - Rads (name of study) CT c-spine Radiology: Prelim report reviewed, EMP read contemporaneously, See rad report ( Normal cervical spine CT.) PD MEDICAL DECISION MAKING - ED course Complexity details: reviewed old records, reviewed results, re-evaluated patient , considered differential, d/w patient ED course: The patient's presentation with neck pain is most consistent with acute exacerbation of chronic arthritic pain. The possibility of meningitis was seriously considered, but her clinical presentation does not support that diagnosis. A CT scan of her cervical spine revealed no acute bony abnormality. Treatment in the emergency department included administration of dexamethasone 10 mg orally and Percocet 1 tablet orally. The patient's symptoms improved significantly with the above treatment. She subsequently demonstrated ability to turn her head and increased movement of her neck with less severe discomfort. She is being discharged with prescription for Vicodin, 6 tablets. 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 Departure - Departure Disposition: 01 Home, Self Care Clinical Impression: Neck pain, acute Headache Qualifiers: Headache type: tension-type Headache chronicity pattern: unspecified pattern Intractability: not intractable Qualified Code(s): G44.209 - Tension-type headache, unspecified, not intractable Condition: Stable Instructions: ED Neck Pain No Trauma Follow-Up: GIRMA LOPEZ MD [Primary Care Provider] - Prescriptions: HYDROcod/ACETAM 5/325 [Vicodin 5/325] 1 - 2 ea PO Q6H PRN #6 tablet PRN Reason: Pain Comments: Continue taking prednisone as previously prescribed. You can use Vicodin sparingly as prescribed if needed for pain. Follow up with your primary physician within 1-2 weeks. Call to schedule appointment. Return to the emergency department if you develop increasing pain, fever, persistent vomiting, or otherwise worsening symptoms. Discharge Date/Time: 05/14/17 18:31
[2017-05-14 18:18] VITALS: BP 133/71
== END 2017-05-14 18:31 | disposition home or self-care (01) ==
LOC: ED 15:32
DX: M54.2 Cervicalgia (principal); G44.209 Tension-type headache, unspecified, not intractable; I11.0 Hypertensive heart disease with heart failure; I50.9 Heart failure, unspecified; K21.9 Gastro-esophageal reflux disease without esophagitis; Z86.010 Personal history of colon polyps; M19.90 Unspecified osteoarthritis, unspecified site; Z79.82 Long term (current) use of aspirin; F17.200 Nicotine dependence, unspecified, uncomplicated
CPT/HCPCS: 72125; 99283; 99284; A9270

== ENCOUNTER 2017-07-06 11:11 | Outpatient (CLI) | payer MEDICARE ==
[2017-07-06 12:11] LABS: BASOPHILS # (AUTO) 0.2 10^3/uL (0.0-0.1); BASOPHILS % (AUTO) 1.9 %; EOSINOPHILS # (AUTO) 0.1 10^3/uL (0.0-0.7); EOSINOPHILS % (AUTO) 0.7 %; HGB - HEMOGLOBIN 12.3 g/dL (12.0-16.0); LYMPHOCYTES # (AUTO) 3.1 10^3/uL (1.5-3.5); LYMPHOCYTES % (AUTO) 25.2 %; MEAN CORPUSCULAR HEMOGLOBIN 28.4 pg (27.0-31.0); MEAN CORPUSCULAR HGB CONC 32.6 g/dL (32.0-36.0); MEAN CORPUSCULAR VOLUME 86.9 fL (81.0-99.0); MEAN PLATELET VOLUME 7.6 fL (7.9-10.8); MONOCYTES % (AUTO) 8.4 %; NEUTROPHILS # (AUTO) 7.8 10^3/uL (1.5-6.6); NEUTROPHILS % (AUTO) 63.8 %; PLT - PLATELET COUNT 313 10^3/uL (130-450); RED BLOOD COUNT 4.35 10^6/uL (4.20-5.40); RED CELL DISTRIBUTION WIDTH 20.6 % (12.0-15.0); WHITE BLOOD COUNT 12.1 x10^3/uL (4.8-10.8)
[2017-07-06 12:43] LABS: HB2 TOTAL 13.5 g/dL; HEMOGLOBIN A1C 0.69 g/dL; HEMOGLOBIN A1C % 6.8 % (4.6-6.2)
[2017-07-06 14:05] LABS: CREATININE 0.6 mg/dL (0.4-1.0)
[2017-07-06 14:06] LABS: MAGNESIUM 0.4 mg/dL (1.7-2.8)
== END 2017-07-06 11:12 | disposition home or self-care (01) ==
LOC: DI 11:11
PROVIDERS: ATTEND Internal Medicine
DX: H54.40 Blindness, one eye, unspecified eye (principal); E11.9 Type 2 diabetes mellitus without complications; F32.9 Major depressive disorder, single episode, unspecified; M00-M99 Diseases of the musculoskeletal system and connective tissue; Z79.899 Other long term (current) drug therapy
CPT/HCPCS: 36415; 80051; 82533; 82565; 83036; 83735; 85025

== ENCOUNTER 2017-07-06 12:13 | Outpatient (CLI) | payer MEDICARE ==
--- NOTE | 2017-07-07 18:57 | XRAY Report ---
DATE OF SERVICE: 07/06/2017 TWO VIEW BILATERAL KNEES: 07/06/2017 CLINICAL INDICATION: Arthritis. Frontal and lateral views of both knees are compared to postoperative films of the left knee of 08/08/2014 and of the right knee of 05/02/2014. Bilateral knee replacements are in place. There is no evidence of fracture or hardware complication. No effusion is present. IMPRESSION: Expected postoperative appearance of bilateral knee replacements. No evidence of fracture or hardware complication. TD: 07/07/2017 19:55
== END 2017-07-06 12:14 | disposition home or self-care (01) ==
LOC: DI 12:13
PROVIDERS: ATTEND Internal Medicine
DX: M19.90 Unspecified osteoarthritis, unspecified site (principal); Z96.653 Presence of artificial knee joint, bilateral; K04.7 Periapical abscess without sinus; H54.40 Blindness, one eye, unspecified eye
CPT/HCPCS: 73565

== ENCOUNTER 2017-07-06 15:10 | Emergency (ER) | payer MEDICARE ==
[2017-07-06] MEDS ORDERED: MAGNESIUM SULFATE 2 GRAM 2 GM/50 ML BAG IV ONE ×2 (15:47→17:31)
--- NOTE | 2017-07-06 16:34 | ED Physician Documentation ---
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 She does have diarrhea chronically and she has had electrolyte disturbances previously. She is previously had a low magnesium at 0.7. Today she had results back from her primary care doctor with a magnesium level of 0.4 and she was asked to come to the emergency department. She has not been feeling well for the past 2 weeks and she asked her doctor to draw her magnesium. In addition she has had an issue with a abscess in her right mouth. She has had this lanced and drained twice. She has some swelling there now and some pain. Review of Systems Constitutional: reports: Chills, Fatigue, Sweats. denies: Fever Eyes: denies: Decreased vision Ears: denies: Ear pain Nose: denies: Congestion Throat: denies: Sore throat Cardiac: denies: Chest pain / pressure, Palpitations Respiratory: denies: Dyspnea, Cough GI: reports: Abdominal Pain, Nausea, Diarrhea : denies: Dysuria, Frequency Skin: denies: Rash Musculoskeletal: denies: Neck pain, Back pain, Extremity pain Neurologic: reports: Generalized weakness. 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, 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 Cardiovascular: Cardiac catheterization HEENT: Tonsil/Adenoidectomy - Present Medications Home Medications: Ambulatory Orders Medication Instructions Recorded Confirmed Aspirin [Aspirin EC] 650 mg PO QID 05/29/13 06/16/17 FLUoxetine [PROzac] 20 mg PO DAILY 05/29/13 06/16/17 Furosemide [Lasix] 40 mg PO DAILY PRN 05/29/13 06/16/17 Metoprolol Tartrate 50 mg PO BID 05/29/13 06/16/17 Potassium Chloride 20 meq PO DAILY PRN 05/29/13 06/16/17 Esomeprazole Magnesium [Nexium] 40 mg PO DAILY 05/01/14 06/16/17 Fluticasone 220 Mcg [Flovent] 1 spray IH DAILY 08/07/14 06/16/17 Nystatin 1 each TOP DAILY 08/07/14 06/16/17 Cetirizine [ZyrTEC] 10 mg PO DAILY 03/03/17 06/16/17 Glimepiride 1 mg PO DAILY 03/03/17 06/16/17 guaiFENesin [Mucinex] 1,200 mg PO BID 03/03/17 06/16/17 metFORMIN [Glucophage] 500 mg PO BID 03/03/17 06/16/17 HYDROcod/ACETAM 5/325 [Vicodin 1 - 2 ea PO Q6H PRN #6 tablet 05/14/17 06/16/17 5/325] predniSONE [Prednisone] 40 mg PO DAILY 05/14/17 06/16/17 - Allergies Allergies/Adverse Reactions: Allergies Allergy/AdvReac Type Severity Reaction Status Date / Time droperidol [From Inapsine] Allergy Severe EPS Verified 10/18/16 01:38 ibuprofen [From Motrin] Allergy Severe Anaphylaxis Verified 10/18/16 01:38 peanut Allergy Severe Anaphylaxis Verified 10/18/16 01:38 shellfish derived Allergy Severe Anaphylaxis Verified 10/18/16 01:38 [id number]-Zfi Reductase Allergy Severe muscle pain Verified 10/18/16 01:38 Inhibitor amoxicillin [Amoxicillin] Allergy Intermediate Hives Verified 10/18/16 01:38 cefazolin Allergy Intermediate Hives Verified 10/18/16 01:38 Cephalosporins Allergy Intermediate Hives Verified 10/18/16 01:38 clindamycin Allergy Intermediate Hives Verified 10/18/16 01:38 cyclobenzaprine Allergy Intermediate Hives/night Verified 10/18/16 01:38 [Cyclobenzaprine] castaneda erythromycin base Allergy Intermediate Hives Verified 10/18/16 01:38 [Erythromycin Base] potassium clavulanate * Allergy Intermediate Hives Verified 10/18/16 01:38 [From Augmentin] ketorolac tromethamine * Allergy Anaphylaxis Verified 10/18/16 01:49 [From Toradol] duloxetine AdvReac Severe Suicidal Verified 10/18/16 01:38 etanercept [From Enbrel] AdvReac Severe Nausea/vomm Verified 10/18/16 01:38 iting/cramp s methotrexate AdvReac Severe N/V/Cramps Verified 10/18/16 01:38 NSAIDS (Non-Steroidal AdvReac Severe N/V/Cramps Verified 10/18/16 01:38 Anti-Inflamma prochlorperazine AdvReac Severe EPS Verified 10/18/16 01:38 pseudoephedrine AdvReac Severe Tachycardia Verified 10/18/16 01:38 sumatriptan AdvReac Severe Widened QRS Verified 10/18/16 01:38 doxycycline AdvReac Intermediate Hives Verified 10/18/16 01:38 gabapentin AdvReac Intermediate Gait Verified 10/18/16 01:38 disturbance latex AdvReac Intermediate Sensitivity Verified 10/18/16 01:38 prochlorperazine edisylate * AdvReac Unknown Verified 01/08/17 00:48 [From Compazine] prochlorperazine maleate * AdvReac Unknown Verified 01/08/17 00:48 [From Compazine] Tape AdvReac Severe Blisters Uncoded 10/18/16 01:38 - Social History Does the pt smoke?: Yes Smoking Status: Current every day smoker Does the pt drink ETOH?: Yes Does the pt have substance abuse?: No - Immunizations Immunizations are current?: Yes - POLST Patient has POLST: Yes POLST Status: DNR PD ED PE NORMAL - Vitals Vital signs reviewed: Yes (Hypertensive mild) - General General: Alert and oriented X 3, No acute distress, Well developed/nourished - HEENT HEENT: Atraumatic, PERRL, EOMI - Neck Neck: Supple, no meningeal sign, No bony TTP - Cardiac Cardiac: RRR, No murmur - Respiratory Respiratory: No respiratory distress, Clear bilaterally - Abdomen Abdomen: Soft, Non tender - Back Back: No CVA TTP, No spinal TTP - Derm Derm: Normal color, Warm and dry, No rash - Extremities Extremities: No deformity, No edema, Other Results - Vitals Vitals: Vital Signs - 24 hr 07/06/17 15:14 Temperature 36.0 C L Heart Rate 93 Respiratory 20 Rate Blood Pressure 128/84 H O2 Saturation 97 Oxygen O2 Source [] Room air O2 Source Room air - EKG (time done) 1539 Rate: Rate (enter#) (88) Rhythm: NSR QRS: Low voltage Ischemia: Non specific changes Compare to prior EKG: Changed from prior EKG (SPT 01-06-17 rate has increased) Computer interpretation: Agree with computer Procedures - Abscess I&D (location) mouth Preparation: Other (lollicaine) Incision: Incised with scalpel, Purulent drainage Other: Pt tolerated well PD MEDICAL DECISION MAKING - ED course Complexity details: reviewed old records, reviewed results, re-evaluated patient , considered differential, d/w patient ED course: 62 y/o female with a complicated past medical history has developed low K+ and low magnesium. IV is begun and she is given 2gm of IV magnesium and second bag is hung and she is given potassium bicarb and potassium chloride. Departure - Departure Clinical Impression: Hypokalemia, Hypomagnesemia, Dental abscess Instructions: ED Potassium Deficiency, Hypermagnesemia Dc, ED Abscess Dental Follow-Up: GIRMA LOPEZ MD [Primary Care Provider] -
[2017-07-06] MEDS ORDERED: POTASSIUM CHLORIDE 20 MEQ TABLET PO STA (16:47)
[2017-07-06] MEDS ORDERED: POTASSIUM BICARB 25 MEQ TABLET PO ONE (17:31)
[2017-07-06 19:46] LABS: BASOPHILS # (AUTO) 0.1 10^3/uL (0.0-0.1); BASOPHILS % (AUTO) 1.1 %; EOSINOPHILS # (AUTO) 0.1 10^3/uL (0.0-0.7); EOSINOPHILS % (AUTO) 0.5 %; LYMPHOCYTES # (AUTO) 2.2 10^3/uL (1.5-3.5); LYMPHOCYTES % (AUTO) 21.1 %; MEAN CORPUSCULAR HEMOGLOBIN 27.8 pg (27.0-31.0); MEAN CORPUSCULAR HGB CONC 32.2 g/dL (32.0-36.0); MEAN CORPUSCULAR VOLUME 86.4 fL (81.0-99.0); MEAN PLATELET VOLUME 7.5 fL (7.9-10.8); MONOCYTES # (AUTO) 0.7 10^3/uL (0.0-1.0); NEUTROPHILS # (AUTO) 7.3 10^3/uL (1.5-6.6); NEUTROPHILS % (AUTO) 70.3 %; PLT - PLATELET COUNT 422 10^3/uL (130-450); RED BLOOD COUNT 4.67 10^6/uL (4.20-5.40); RED CELL DISTRIBUTION WIDTH 20.5 % (12.0-15.0); WHITE BLOOD COUNT 10.4 x10^3/uL (4.8-10.8)
[2017-07-06 19:56] LABS: ALBUMIN 3.4 g/dL (3.2-5.5); ALBUMIN/GLOBULIN RATIO 1.1 (1.0-2.2); BILIRUBIN,TOTAL 0.4 mg/dL (0.2-1.0); CALCIUM 8.3 mg/dL (8.5-10.3); CREATININE 0.6 mg/dL (0.4-1.0); MAGNESIUM 2.2 mg/dL (1.7-2.8); TOTAL PROTEIN 6.4 g/dL (6.7-8.2)
[2017-07-06 20:04] LABS: PLATELET ESTIMATE, MANUAL NORMAL (130-450,000) (NORMAL); PLATELET MORPHOLOGY NORMAL APPEARANCE (NORMAL)
[2017-07-06 20:20] VITALS: BP 132/82
== END 2017-07-06 20:21 | disposition home or self-care (01) ==
LOC: ED 15:10
DX: E87.6 Hypokalemia (principal); E83.42 Hypomagnesemia; K04.7 Periapical abscess without sinus; I11.0 Hypertensive heart disease with heart failure; I50.9 Heart failure, unspecified; F17.200 Nicotine dependence, unspecified, uncomplicated; E11.9 Type 2 diabetes mellitus without complications; Z79.84 Long term (current) use of oral hypoglycemic drugs; M19.90 Unspecified osteoarthritis, unspecified site; Z96.653 Presence of artificial knee joint, bilateral; Z79.82 Long term (current) use of aspirin; Z79.52 Long term (current) use of systemic steroids; H54.40 Blindness, one eye, unspecified eye; F32.9 Major depressive disorder, single episode, unspecified; M00-M99 Diseases of the musculoskeletal system and connective tissue; Z79.899 Other long term (current) drug therapy
CPT/HCPCS: 36415; 41800; 73565; 80051; 80053; 82533; 82565; 83036; 83690; 83735; 85025; 93005; 96365; 96366; 99283; A9270

== ENCOUNTER 2017-07-07 06:52 | Outpatient (CLI) | payer MEDICARE | END 2017-07-07 06:53 | disposition critical access hospital (66) | LOC: EMS 06:52 | PROVIDERS: ATTEND Surgery | DX: R55 Syncope and collapse (principal); R11.2 Nausea with vomiting, unspecified; M25.511 Pain in right shoulder | CPT/HCPCS: A0425; A0427 ==

== ENCOUNTER 2017-07-07 07:04 | Emergency (ER) | payer MEDICARE ==
--- NOTE | 2017-07-07 07:33 | ED Physician Documentation ---
History of Present Illness - Stated complaint Stated Complaint: NEAR SYNCOPE - Chief complaint Chief Complaint: Neuro - History obtained from History obtained from: Patient, EMS - History of Present Illness Timing: Yesterday - Additonal information Additional information: 62-year-old diabetic female with a history of reactive arthritis and a complicated medical history was seen in the emergency department yesterday for a low magnesium. She was administered 4 g of magnesium intravenously a liter of saline and 75 mEq of potassium. She also was nursing a dental abscess and had I&D of a buccal abscess yesterday in the emergency department. This morning she got up to start her day and had a near syncopal episode fell and injured her right shoulder. Review of Systems Constitutional: reports: Fatigue. denies: Fever Eyes: denies: Decreased vision Ears: denies: Ear pain Nose: reports: Congestion. denies: Rhinorrhea / runny nose Throat: reports: Dental pain / toothache Cardiac: reports: Chest pain / pressure. denies: Palpitations Respiratory: denies: Dyspnea, Cough GI: reports: Nausea, Constipation. denies: Abdominal Pain : denies: Dysuria, Frequency Skin: denies: Rash Musculoskeletal: reports: Back pain, Extremity pain. 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, Oophrectomy Cardiovascular: Cardiac catheterization HEENT: Tonsil/Adenoidectomy - Present Medications Home Medications: Ambulatory Orders Medication Instructions Recorded Confirmed Aspirin [Aspirin EC] 650 mg PO QID 05/29/13 07/07/17 FLUoxetine [PROzac] 20 mg PO DAILY 05/29/13 07/07/17 Furosemide [Lasix] 40 mg PO DAILY PRN 05/29/13 07/07/17 Metoprolol Tartrate 50 mg PO BID 05/29/13 07/07/17 Potassium Chloride 20 meq PO DAILY PRN 05/29/13 07/07/17 Esomeprazole Magnesium [Nexium] 40 mg PO DAILY 05/01/14 07/07/17 Fluticasone 220 Mcg [Flovent] 1 spray IH DAILY 08/07/14 07/07/17 Nystatin 1 each TOP DAILY 08/07/14 07/07/17 Cetirizine [ZyrTEC] 10 mg PO DAILY 03/03/17 07/07/17 Glimepiride 1 mg PO DAILY 03/03/17 07/07/17 guaiFENesin [Mucinex] 1,200 mg PO BID 03/03/17 07/07/17 metFORMIN [Glucophage] 500 mg PO BID 03/03/17 07/07/17 HYDROcod/ACETAM 5/325 [Vicodin 1 - 2 ea PO Q6H PRN #6 tablet 05/14/17 07/07/17 5/325] predniSONE [Prednisone] 30 mg PO DAILY 05/14/17 07/07/17 Ciprofloxacin HCl [Cipro] 500 mg PO BID #10 tablet 07/07/17 - Allergies Allergies/Adverse Reactions: Allergies Allergy/AdvReac Type Severity Reaction Status Date / Time droperidol [From Inapsine] Allergy Severe EPS Verified 10/18/16 01:38 ibuprofen [From Motrin] Allergy Severe Anaphylaxis Verified 10/18/16 01:38 peanut Allergy Severe Anaphylaxis Verified 10/18/16 01:38 shellfish derived Allergy Severe Anaphylaxis Verified 10/18/16 01:38 A[place]-Ivr-Tee Reductase Allergy Severe muscle pain Verified 10/18/16 01:38 Inhibitor amoxicillin [Amoxicillin] Allergy Intermediate Hives Verified 10/18/16 01:38 cefazolin Allergy Intermediate Hives Verified 10/18/16 01:38 Cephalosporins Allergy Intermediate Hives Verified 10/18/16 01:38 clindamycin Allergy Intermediate Hives Verified 10/18/16 01:38 cyclobenzaprine Allergy Intermediate Hives/night Verified 10/18/16 01:38 [Cyclobenzaprine] castaneda erythromycin base Allergy Intermediate Hives Verified 10/18/16 01:38 [Erythromycin Base] potassium clavulanate * Allergy Intermediate Hives Verified 10/18/16 01:38 [From Augmentin] ketorolac tromethamine * Allergy Anaphylaxis Verified 10/18/16 01:49 [From Toradol] duloxetine AdvReac Severe Suicidal Verified 10/18/16 01:38 etanercept [From Enbrel] AdvReac Severe Nausea/vomm Verified 10/18/16 01:38 iting/cramp s methotrexate AdvReac Severe N/V/Cramps Verified 10/18/16 01:38 NSAIDS (Non-Steroidal AdvReac Severe N/V/Cramps Verified 10/18/16 01:38 Anti-Inflamma prochlorperazine AdvReac Severe EPS Verified 10/18/16 01:38 pseudoephedrine AdvReac Severe Tachycardia Verified 10/18/16 01:38 sumatriptan AdvReac Severe Widened QRS Verified 10/18/16 01:38 doxycycline AdvReac Intermediate Hives Verified 10/18/16 01:38 gabapentin AdvReac Intermediate Gait Verified 10/18/16 01:38 disturbance latex AdvReac Intermediate Sensitivity Verified 10/18/16 01:38 prochlorperazine edisylate * AdvReac Unknown Verified 01/08/17 00:48 [From Compazine] prochlorperazine maleate * AdvReac Unknown Verified 01/08/17 00:48 [From Compazine] Tape AdvReac Severe Blisters Uncoded 10/18/16 01:38 - Social History Does the pt smoke?: Yes Smoking Status: Current every day smoker Does the pt drink ETOH?: Yes Does the pt have substance abuse?: No - Immunizations Immunizations are current?: Yes - POLST Patient has POLST: Yes POLST Status: DNR PD ED PE NORMAL - Vitals Vital signs reviewed: Yes (Normal) - General General: Alert and oriented X 3, No acute distress, Well developed/nourished - HEENT HEENT: Atraumatic, PERRL, EOMI - Neck Neck: Supple, no meningeal sign, No bony TTP - Cardiac Cardiac: RRR, No murmur - Respiratory Respiratory: No respiratory distress, Clear bilaterally - Abdomen Abdomen: Soft, Non tender - Back Back: No CVA TTP, No spinal TTP - Derm Derm: Normal color, Warm and dry, No rash - Extremities Extremities: No deformity, No edema, Other - Neuro Neuro: Alert and oriented X 3, wage adjuster 2-12 intact, No motor deficit, No sensory deficit (There is tenderness to the right shoulder and pain with any movement of the shoulder.), Normal speech Eye Opening: Spontaneous Motor: Obeys Commands Verbal: Oriented GCS Score: 15 - Psych Psych: Normal mood, Normal affect Results - Vitals Vitals: Vital Signs - 24 hr 07/07/17 07/07/17 07/07/17 07:08 09:00 10:00 Temperature 36.2 C L Heart Rate 84 82 86 Respiratory 18 20 20 Rate Blood Pressure 115/71 128/82 H 117/81 H O2 Saturation 97 99 97 07/07/17 12:13 Temperature 35.7 C L Heart Rate 87 Respiratory 18 Rate Blood Pressure 113/71 O2 Saturation 93 Oxygen O2 Source [] Room air O2 Source Room air - EKG (time done) 0715 Rate: Rate (enter#) (75) Rhythm: NSR QRS: Low voltage Ischemia: Non specific changes Compare to prior EKG: Unchanged from prior EKG (07-06-17) Computer interpretation: Agree with computer - Labs Labs: Laboratory Tests 07/07/17 07/07/17 07/07/17 07:42 07:42 07:42 WBC 7.8 RBC 4.44 Hgb 12.5 Hct 38.6 MCV 86.9 MCH 28.2 MCHC 32.4 RDW 20.1 H Plt Count 357 MPV 7.3 L Neut # 5.7 Lymph # 1.3 L [place] # 0.6 Eos # 0.0 Baso # 0.1 Absolute Nucleated RBC 0.01 Nucleated RBC % 0.1 Manual Slide Review Indicated RBC Morph Micro Appear 3+ ANISOCYTOSIS Sodium 139 Potassium 3.4 L Chloride 99 L Carbon Dioxide 25 Anion Gap 15.0 H BUN 11 Creatinine 0.6 Estimated GFR (MDRD) 102 Glucose 128 H Calcium 7.9 L Magnesium 1.5 L Total Bilirubin 0.4 AST 17 ALT 18 Alkaline Phosphatase 64 Troponin I < 0.04 Total Protein 6.3 L Albumin 3.3 Globulin 3.0 Albumin/Globulin Ratio 1.1 Lipase 62 H Urine Color Urine Clarity Urine pH Ur Specific [place] Urine Protein Urine Glucose (UA) Urine Ketones Urine Occult Blood Urine Nitrite Urine Bilirubin Urine Urobilinogen Ur Leukocyte Esterase Urine RBC Urine WBC Ur Squamous Epith Cells Urine Bacteria Ur Microscopic Review Urine Culture Comments 07/07/17 11:15 WBC RBC Hgb Hct MCV MCH MCHC RDW Plt Count MPV Neut # Lymph # [place] # Eos # Baso # Absolute Nucleated RBC Nucleated RBC % Manual Slide Review RBC Morph Micro Appear Sodium Potassium Chloride Carbon Dioxide Anion Gap BUN Creatinine Estimated GFR (MDRD) Glucose Calcium Magnesium Total Bilirubin AST ALT Alkaline Phosphatase Troponin I Total Protein Albumin Globulin Albumin/Globulin Ratio Lipase Urine Color DARK YELLOW Urine Clarity CLEAR Urine pH 6.0 Ur Specific [place] >=1.030 H Urine Protein 30 H Urine Glucose (UA) NEGATIVE Urine Ketones NEGATIVE Urine Occult Blood TRACE-LYSE Urine Nitrite NEGATIVE Urine Bilirubin NEGATIVE Urine Urobilinogen 0.2 (NORMAL) Ur Leukocyte Esterase NEGATIVE Urine RBC 0-5 Urine WBC 0-3 Ur Squamous Epith Cells MOD Squamous H Urine Bacteria Rare Ur Microscopic Review INDICATED Urine Culture Comments NOT INDICATED - Rads (name of study) right shoulder Radiology: Prelim report reviewed (Impression: 1. No evidence for fracture or dislocation.), EMP read indepedently, See rad report chest Radiology: Prelim report reviewed (Impression: No acute disease in the chest.), EMP read indepedently, See rad report Procedures - IVC sono (time) 0900 Bedside IVC sono: IVC measures (cm) (1.12), IVC collapsed c insp (cm) (complete) , Dehydration (one liter + down) PD MEDICAL DECISION MAKING - ED course Complexity details: reviewed old records, reviewed results, re-evaluated patient , considered differential, d/w patient ED course: 62 y/o female returns to the ED today with near syncope and is found to be dehydrated. She spent the day in the ED yesterday when her Magnesium was 0.4. She received 4gm of IV magnesium yesterday as well as K+. She has a dental abscess and multiple antibiotic allergies and her abscess was I&D'd and antibiotics were not started yesterday. Today she is dehydrated and she is given IV saline with improvement. She is given more K+ and Magnesium. We will start her on some cipro today for her abscess. Departure - Departure Disposition: 01 Home, Self Care Clinical Impression: Hypomagnesemia, Hypokalemia, Dehydration, Dental abscess Condition: Stable Instructions: ED Dehydration, ED Abscess Dental, ED Potassium Deficiency Follow-Up: GIRMA LOPEZ MD [Primary Care Provider] - Prescriptions: Ciprofloxacin HCl [Cipro] 500 mg PO BID #10 tablet Discharge Date/Time: 07/07/17 12:22
[2017-07-07 07:56] LABS: BASOPHILS # (AUTO) 0.1 10^3/uL (0.0-0.1); EOSINOPHILS % (AUTO) 0.6 %; HGB - HEMOGLOBIN 12.5 g/dL (12.0-16.0); LYMPHOCYTES # (AUTO) 1.3 10^3/uL (1.5-3.5); LYMPHOCYTES % (AUTO) 16.9 %; MEAN CORPUSCULAR HEMOGLOBIN 28.2 pg (27.0-31.0); MEAN CORPUSCULAR HGB CONC 32.4 g/dL (32.0-36.0); MEAN CORPUSCULAR VOLUME 86.9 fL (81.0-99.0); MEAN PLATELET VOLUME 7.3 fL (7.9-10.8); MONOCYTES # (AUTO) 0.6 10^3/uL (0.0-1.0); MONOCYTES % (AUTO) 8.1 %; NEUTROPHILS # (AUTO) 5.7 10^3/uL (1.5-6.6); NEUTROPHILS % (AUTO) 73.4 %; PLT - PLATELET COUNT 357 10^3/uL (130-450); RED BLOOD COUNT 4.44 10^6/uL (4.20-5.40); RED CELL DISTRIBUTION WIDTH 20.1 % (12.0-15.0); WHITE BLOOD COUNT 7.8 x10^3/uL (4.8-10.8)
[2017-07-07 08:07] LABS: ALBUMIN 3.3 g/dL (3.2-5.5); ALBUMIN/GLOBULIN RATIO 1.1 (1.0-2.2); BILIRUBIN,TOTAL 0.4 mg/dL (0.2-1.0); CALCIUM 7.9 mg/dL (8.5-10.3); CREATININE 0.6 mg/dL (0.4-1.0); MAGNESIUM 1.5 mg/dL (1.7-2.8); TOTAL PROTEIN 6.3 g/dL (6.7-8.2)
--- NOTE | 2017-07-07 08:15 | XRAY Report ---
EXAM: CHEST RADIOGRAPHY EXAM DATE: 07/07/2017 07:57 AM. CLINICAL HISTORY: Chest pain. Fall. COMPARISON: 01/07/2017. 11/13/2016. TECHNIQUE: 2 views. FINDINGS: Lungs/Pleura: No focal opacities evident. No pleural effusion. No pneumothorax. Normal volumes. Mediastinum: Heart size upper normal. Aorta is mildly tortuous. Aortic atherosclerosis. Other: Degenerative changes of the thoracic spine and both shoulders. Postsurgical changes involving the right shoulder are again seen. IMPRESSION: 1. No acute disease in the chest. [facility] Referring Provider Line: [phone] SITE ID: [id number]
[2017-07-07 08:32] LABS: RBC MORPHOLOGY (MULTIPLE) 3+ ANISOCYTOSIS (NORMAL)
[2017-07-07] MEDS ORDERED: MAGNESIUM SULFATE 2 GRAM 2 GM/50 ML BAG IV ONE (09:02)
[2017-07-07] MEDS ORDERED: POTASSIUM BICARB 25 MEQ TABLET PO STA (09:02)
--- NOTE | 2017-07-07 09:05 | XRAY Report ---
EXAM: RIGHT SHOULDER RADIOGRAPHY EXAM DATE: 07/07/2017 08:15 AM. CLINICAL HISTORY: Fall with shoulder pain. COMPARISON: Chest CT 08/13/2015. TECHNIQUE: 3 views. FINDINGS: Bones: No fracture or bone lesion. 2 proximal humeral surgical anchors. Joints: The glenohumeral and acromioclavicular joints are normal. Soft tissues: 2 x 6 mm soft tissue calcification along posterior aspect of right shoulder joint is li susana unchanged compared to chest CT 08/13/2015. IMPRESSION: 1. No evidence for fracture or dislocation. [facility] Referring Provider Line: [phone] SITE ID: [id number]
[2017-07-07] MEDS ORDERED: SODIUM CHLORIDE 0.9% 1,000 ML IV ONE (09:27)
[2017-07-07] MEDS ORDERED: HYDROmorphone 1 MG/ML SYRINGE IVP STA (10:44)
[2017-07-07] MEDS ORDERED: ONDANSETRON 4 MG/2 ML VIAL IVP STA (10:44)
[2017-07-07 11:38] LABS: BILIRUBIN,URINE NEGATIVE (NEGATIVE); GLUCOSE, URINE (UA) NEGATIVE (NEGATIVE); KETONES,URINE (UA) NEGATIVE (NEGATIVE); LEUKOCYTE ESTERASE, URINE NEGATIVE (NEGATIVE); NITRITE,URINE NEGATIVE (NEGATIVE); OCCULT BLOOD,URINE TRACE-LYSE (NEGATIVE); PROTEIN,URINE 30 mg/dL (NEGATIVE); UROBILINOGEN,URINE 0.2 (NORMAL) E.U./dL (NORMAL)
[2017-07-07 11:40] LABS: CLARITY,URINE CLEAR (CLEAR)
[2017-07-07 12:13] VITALS: BP 113/71
[2017-07-07 12:15] LABS: BACTERIA,URINE Rare /HPF (None Seen); RBC,URINE 0-5 /HPF (0-5); SQUAMOUS EPITHELIAL CELL,UR MOD Squamous (<= Few)
== END 2017-07-07 12:22 | disposition home or self-care (01) ==
LOC: EDUNIT# → ED 07:04
DX: E83.42 Hypomagnesemia (principal); E87.6 Hypokalemia; E86.0 Dehydration; K04.7 Periapical abscess without sinus; R94.31 Abnormal electrocardiogram [ECG] [EKG]; I11.0 Hypertensive heart disease with heart failure; I50.9 Heart failure, unspecified; E11.9 Type 2 diabetes mellitus without complications; Z79.84 Long term (current) use of oral hypoglycemic drugs; Z79.82 Long term (current) use of aspirin; Z96.659 Presence of unspecified artificial knee joint
CPT/HCPCS: 36415; 71046; 80053; 81001; 81003; 83690; 83735; 84484; 85025; 87086; 93005; 96365; 96366; 96375; 99284

== ENCOUNTER 2017-07-07 21:19 | Emergency (ER) | payer MEDICARE ==
[2017-07-07] MEDS ORDERED: diazePAM 5 MG TABLET PO STA (22:08)
[2017-07-07] MEDS ORDERED: ACETAMINOPHEN 500 MG TABLET PO STA (22:08)
[2017-07-07 22:55] LABS: BASOPHILS # (AUTO) 0.1 10^3/uL (0.0-0.1); BASOPHILS % (AUTO) 1.3 %; EOSINOPHILS # (AUTO) 0.1 10^3/uL (0.0-0.7); EOSINOPHILS % (AUTO) 0.7 %; HGB - HEMOGLOBIN 12.3 g/dL (12.0-16.0); LYMPHOCYTES # (AUTO) 1.3 10^3/uL (1.5-3.5); LYMPHOCYTES % (AUTO) 14.6 %; MEAN CORPUSCULAR HEMOGLOBIN 27.7 pg (27.0-31.0); MEAN CORPUSCULAR HGB CONC 31.4 g/dL (32.0-36.0); MEAN CORPUSCULAR VOLUME 88.1 fL (81.0-99.0); MEAN PLATELET VOLUME 7.4 fL (7.9-10.8); MONOCYTES # (AUTO) 0.5 10^3/uL (0.0-1.0); MONOCYTES % (AUTO) 6.1 %; NEUTROPHILS # (AUTO) 6.7 10^3/uL (1.5-6.6); NEUTROPHILS % (AUTO) 77.3 %; PLT - PLATELET COUNT 390 10^3/uL (130-450); RED BLOOD COUNT 4.45 10^6/uL (4.20-5.40); RED CELL DISTRIBUTION WIDTH 20.8 % (12.0-15.0); WHITE BLOOD COUNT 8.6 x10^3/uL (4.8-10.8)
[2017-07-07 23:03] LABS: ALBUMIN 3.2 g/dL (3.2-5.5); BILIRUBIN,TOTAL 0.5 mg/dL (0.2-1.0); CREATININE 0.6 mg/dL (0.4-1.0); MAGNESIUM 1.7 mg/dL (1.7-2.8); PHOSPHORUS 2.6 mg/dL (2.5-4.6); TOTAL PROTEIN 6.4 g/dL (6.7-8.2)
--- NOTE | 2017-07-07 23:34 | ED Physician Documentation ---
History of Present Illness - Stated complaint Stated Complaint: FEVER/HIGUERA BACK PX S/P FALL - Chief complaint Chief Complaint: Fever - History obtained from History obtained from: Patient, Friend - History of Present Illness Timing: How many days ago (3) - Additonal information Additional information: Patient is a 62 year old female with multiple comorbidities who is presenting to the emergency department for the third time in three days. Patient states that this visit is because she had a fever and felt like she was shaking. patient's previous work ups over the last two days had not revealed any significant abnormality aside from low magnesium which had been replaced. Review of Systems Constitutional: reports: Fever, Chills, Myalgias, Fatigue Eyes: denies: Decreased vision, Photophobia Ears: denies: Ear pain, Drainage/discharge Nose: denies: Congestion Throat: reports: Dental pain / toothache, Oral lesions / sores Cardiac: denies: Chest pain / pressure, Palpitations Respiratory: denies: Dyspnea, Cough, Wheezing GI: reports: Nausea. denies: Vomiting : denies: Dysuria, Frequency, Incontinent Skin: reports: Rash Musculoskeletal: reports: Back pain Neurologic: reports: Generalized weakness. denies: Focal weakness, Numbness, Syncope, Altered mental status, LOC Psychiatric: reports: Anxiety Immunocompromised: denies: Immunocompromised PD PAST MEDICAL HISTORY - Past Medical History Past Medical History: Yes Cardiovascular: Congestive heart failure, Hypertension Respiratory: Other Neuro: Other Endocrine/Autoimmune: Type 2 diabetes GI: GERD, Colon polyps, Chronic diarrhea, Other : Incontinence HEENT: Chronic vision loss, Chronic sinusitis Psych: Depression, Anxiety, Obsessive compulsive disorder Musculoskeletal: Osteoarthritis Derm: Other - Past Surgical History Past Surgical History: Yes General: Cholecystectomy, Appendectomy, Bowel surgery, Other Ortho: Knee 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: 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, Oophrectomy Cardiovascular: Cardiac catheterization HEENT: Tonsil/Adenoidectomy - Present Medications Home Medications: Ambulatory Orders Medication Instructions Recorded Confirmed Aspirin [Aspirin EC] 650 mg PO QID 05/29/13 07/07/17 FLUoxetine [PROzac] 20 mg PO DAILY 05/29/13 07/07/17 Furosemide [Lasix] 40 mg PO DAILY PRN 05/29/13 07/07/17 Metoprolol Tartrate 50 mg PO BID 05/29/13 07/07/17 Potassium Chloride 20 meq PO DAILY PRN 05/29/13 07/07/17 Esomeprazole Magnesium [Nexium] 40 mg PO DAILY 05/01/14 07/07/17 Fluticasone 220 Mcg [Flovent] 1 spray IH DAILY 08/07/14 07/07/17 Nystatin 1 each TOP DAILY 08/07/14 07/07/17 Cetirizine [ZyrTEC] 10 mg PO DAILY 03/03/17 07/07/17 Glimepiride 1 mg PO DAILY 03/03/17 07/07/17 guaiFENesin [Mucinex] 1,200 mg PO BID 03/03/17 07/07/17 metFORMIN [Glucophage] 500 mg PO BID 03/03/17 07/07/17 HYDROcod/ACETAM 5/325 [Vicodin 1 - 2 ea PO Q6H PRN #6 tablet 05/14/17 07/07/17 5/325] predniSONE [Prednisone] 30 mg PO DAILY 05/14/17 07/07/17 Ciprofloxacin HCl [Cipro] 500 mg PO BID #10 tablet 07/07/17 - Allergies Allergies/Adverse Reactions: Allergies Allergy/AdvReac Type Severity Reaction Status Date / Time droperidol [From Inapsine] Allergy Severe EPS Verified 10/18/16 01:38 ibuprofen [From Motrin] Allergy Severe Anaphylaxis Verified 10/18/16 01:38 peanut Allergy Severe Anaphylaxis Verified 10/18/16 01:38 shellfish derived Allergy Severe Anaphylaxis Verified 10/18/16 01:38 Zychlrt-Mfj-Cdi Reductase Allergy Severe muscle pain Verified 10/18/16 01:38 Inhibitor amoxicillin [Amoxicillin] Allergy Intermediate Hives Verified 10/18/16 01:38 cefazolin Allergy Intermediate Hives Verified 10/18/16 01:38 Cephalosporins Allergy Intermediate Hives Verified 10/18/16 01:38 clindamycin Allergy Intermediate Hives Verified 10/18/16 01:38 cyclobenzaprine Allergy Intermediate Hives/night Verified 10/18/16 01:38 [Cyclobenzaprine] castaneda erythromycin base Allergy Intermediate Hives Verified 10/18/16 01:38 [Erythromycin Base] potassium clavulanate * Allergy Intermediate Hives Verified 10/18/16 01:38 [From Augmentin] ketorolac tromethamine * Allergy Anaphylaxis Verified 10/18/16 01:49 [From Toradol] duloxetine AdvReac Severe Suicidal Verified 10/18/16 01:38 etanercept [From Enbrel] AdvReac Severe Nausea/vomm Verified 10/18/16 01:38 iting/cramp s methotrexate AdvReac Severe N/V/Cramps Verified 10/18/16 01:38 NSAIDS (Non-Steroidal AdvReac Severe N/V/Cramps Verified 10/18/16 01:38 Anti-Inflamma prochlorperazine AdvReac Severe EPS Verified 10/18/16 01:38 pseudoephedrine AdvReac Severe Tachycardia Verified 10/18/16 01:38 sumatriptan AdvReac Severe Widened QRS Verified 10/18/16 01:38 doxycycline AdvReac Intermediate Hives Verified 10/18/16 01:38 gabapentin AdvReac Intermediate Gait Verified 10/18/16 01:38 disturbance latex AdvReac Intermediate Sensitivity Verified 10/18/16 01:38 prochlorperazine edisylate * AdvReac Unknown Verified 01/08/17 00:48 [From Compazine] prochlorperazine maleate * AdvReac Unknown Verified 01/08/17 00:48 [From Compazine] Tape AdvReac Severe Blisters Uncoded 10/18/16 01:38 - Social History Does the pt smoke?: Yes Smoking Status: Current every day smoker Does the pt drink ETOH?: Yes Does the pt have substance abuse?: No - Immunizations Immunizations are current?: Yes - POLST Patient has POLST: Yes POLST Status: DNR PD ED PE NORMAL - Vitals Vital signs reviewed: Yes - General General: Alert and oriented X 3, No acute distress, Well developed/nourished - HEENT HEENT: Atraumatic, PERRL, Moist mucous membranes, Pharynx benign - Neck Neck: Supple, no meningeal sign, No JVD - Cardiac Cardiac: RRR, No murmur - Respiratory Respiratory: No respiratory distress, Clear bilaterally - Abdomen Abdomen: Soft, Non tender, Non distended - Derm Derm: Normal color - Extremities Extremities: No deformity, Normal ROM s pain - Neuro Neuro: Alert and oriented X 3, No motor deficit, No sensory deficit, Normal speech Eye Opening: Spontaneous Motor: Obeys Commands Verbal: Oriented GCS Score: 15 PD ED PE EXPANDED - Derm Derm: Other (few excoriations on patient's back) Results - Vitals Vitals: Vital Signs - 24 hr 07/07/17 07/07/17 07/08/17 21:24 23:05 00:35 Temperature 38.3 C H 37.3 C 36.8 C Heart Rate 88 90 82 Respiratory 18 18 20 Rate Blood Pressure 141/83 H 110/68 102/75 O2 Saturation 99 97 96 Oxygen O2 Source [Without Activity] Room air O2 Source Room air - Labs Labs: Laboratory Tests 07/07/17 07/07/17 07/07/17 22:25 22:25 23:38 WBC 8.6 RBC 4.45 Hgb 12.3 Hct 39.2 MCV 88.1 MCH 27.7 MCHC 31.4 L RDW 20.8 H Plt Count 390 MPV 7.4 L Neut # 6.7 H Lymph # 1.3 L [place] # 0.5 Eos # 0.1 Baso # 0.1 Absolute Nucleated RBC 0.01 Nucleated RBC % 0.1 Manual Slide Review Indicated Sodium 137 Potassium 3.6 Chloride 98 L Carbon Dioxide 25 Anion Gap 14.0 H BUN 10 Creatinine 0.6 Estimated GFR (MDRD) 102 Glucose 163 H Calcium 8.0 L Phosphorus 2.6 Magnesium 1.7 Total Bilirubin 0.5 AST 25 ALT 21 Alkaline Phosphatase 71 Total Protein 6.4 L Albumin 3.2 Globulin 3.2 Albumin/Globulin Ratio 1.0 Lipase 52 H Influenza A (Rapid) Negative Influenza B (Rapid) Negative Influenza Types A,B Ag - PD MEDICAL DECISION MAKING - ED course Complexity details: reviewed old records, reviewed results, re-evaluated patient , considered differential, d/w patient ED course: Patient was seen and examined at bedside. patient was treated with tylenol for her fever. Patient's previous records were reviewed. Patinent was treated with valium for her tmj. Patient's diagnostics were within normal limits. Patient required no further work up and was stable for discharge with outpatient follow up. Departure - Departure Disposition: 01 Home, Self Care Clinical Impression: Fever Condition: Good Instructions: ACETAMINOPHEN (Adult) Follow-Up: GIRMA LOPEZ MD [Primary Care Provider] - Tomorrow Comments: Your diagnostics today were within normal limits. there are no major abnormalities on your work up. blood cultures have been drawn and results will be back in a few days. You will be called if they are positive. you can take tylenol as needed for fevers. you should stay well hydrated and get plenty of rest. you should follow up with your doctor this week. Discharge Date/Time: 07/08/17 00:45
[2017-07-08 00:35] VITALS: BP 102/75
== END 2017-07-08 00:45 | disposition home or self-care (01) ==
LOC: ED 21:19
DX: R50.9 Fever, unspecified (principal); E83.42 Hypomagnesemia; E87.6 Hypokalemia; E86.0 Dehydration; K04.7 Periapical abscess without sinus; R94.31 Abnormal electrocardiogram [ECG] [EKG]; I11.0 Hypertensive heart disease with heart failure; I50.9 Heart failure, unspecified; E11.9 Type 2 diabetes mellitus without complications; F17.200 Nicotine dependence, unspecified, uncomplicated; Z79.84 Long term (current) use of oral hypoglycemic drugs; Z96.659 Presence of unspecified artificial knee joint
CPT/HCPCS: 36415; 71046; 73030; 80053; 81001; 83690; 83735; 84100; 84484; 85025; 87040; 87275; 87276; 93005; 96365; 96366; 96375; 99283; 99284; A9270; J1170; 81003; 81599; 87076; 87086

== ENCOUNTER 2017-07-09 14:07 | Observation (INO) | payer MEDICARE ==
[2017-07-09] MEDS ORDERED: SODIUM CHLORIDE 0.9% 1,000 ML IV ONE (14:48)
[2017-07-09 15:11] LABS: BASOPHILS # (AUTO) 0.1 10^3/uL (0.0-0.1); BASOPHILS % (AUTO) 1.2 %; EOSINOPHILS # (AUTO) 0.1 10^3/uL (0.0-0.7); EOSINOPHILS % (AUTO) 0.8 %; HGB - HEMOGLOBIN 11.9 g/dL (12.0-16.0); LYMPHOCYTES # (AUTO) 1.4 10^3/uL (1.5-3.5); LYMPHOCYTES % (AUTO) 17.3 %; MEAN CORPUSCULAR HEMOGLOBIN 27.9 pg (27.0-31.0); MEAN CORPUSCULAR HGB CONC 32.1 g/dL (32.0-36.0); MEAN CORPUSCULAR VOLUME 87.1 fL (81.0-99.0); MEAN PLATELET VOLUME 7.4 fL (7.9-10.8); MONOCYTES # (AUTO) 0.6 10^3/uL (0.0-1.0); MONOCYTES % (AUTO) 7.8 %; NEUTROPHILS # (AUTO) 6.1 10^3/uL (1.5-6.6); NEUTROPHILS % (AUTO) 72.9 %; PLT - PLATELET COUNT 364 10^3/uL (130-450); RED BLOOD COUNT 4.26 10^6/uL (4.20-5.40); WHITE BLOOD COUNT 8.3 x10^3/uL (4.8-10.8)
[2017-07-09 15:13] LABS: RED CELL DISTRIBUTION WIDTH 20.3 % (12.0-15.0)
[2017-07-09] MEDS ORDERED: ONDANSETRON ODT 4 MG TABLET TL STA (15:17)
[2017-07-09] MEDS ORDERED: HYDROcod/ACETAM 5/325 MG TABLET PO STA (15:17)
[2017-07-09 15:19] LABS: ALBUMIN 3.3 g/dL (3.2-5.5); ALBUMIN/GLOBULIN RATIO 1.1 (1.0-2.2); BILIRUBIN,TOTAL 0.7 mg/dL (0.2-1.0); CALCIUM 8.7 mg/dL (8.5-10.3); CREATININE 0.5 mg/dL (0.4-1.0); MAGNESIUM 1.6 mg/dL (1.7-2.8); PHOSPHORUS 2.1 mg/dL (2.5-4.6); TOTAL PROTEIN 6.3 g/dL (6.7-8.2)
--- NOTE | 2017-07-09 16:07 | ED Physician Documentation ---
History of Present Illness - Stated complaint Stated Complaint: NAUSEA/DIARRHEA - Chief complaint Chief Complaint: General - History obtained from History obtained from: Patient (pt was sent here by her primary care provider for "admission". pt states that she has chronic diarrhea, states that she was here in the ER a couple days ago with a log Mg and low phos. she states that she has not been feeling well and has had voimiting. she also states that she has a known dental abscess and has been throwing up her abx.) Review of Systems Constitutional: reports: Myalgias, Fatigue. denies: Fever, Chills Throat: reports: Oral lesions / sores. denies: Sore throat Cardiac: denies: Chest pain / pressure, Palpitations Respiratory: denies: Dyspnea, Cough GI: reports: Abdominal Pain, Nausea, Vomiting, Diarrhea. denies: Constipation : denies: Dysuria, Vaginal bleeding Skin: reports: Lesions (has lesion to her right knee that is chronic). denies: Rash Musculoskeletal: denies: Joint swelling Neurologic: reports: Generalized weakness, Headache. 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: 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, Oophrectomy Cardiovascular: Cardiac catheterization HEENT: Tonsil/Adenoidectomy - Present Medications Home Medications: Ambulatory Orders Medication Instructions Recorded Confirmed Aspirin [Aspirin EC] 650 mg PO 0800,1200,1600,199905/29/13 07/09/17 FLUoxetine [PROzac] 20 mg PO DAILY 05/29/13 07/09/17 Furosemide [Lasix] 40 mg PO DAILY PRN 05/29/13 07/09/17 Metoprolol Tartrate 50 mg PO BID 05/29/13 07/09/17 Potassium Chloride 20 meq PO DAILY PRN 05/29/13 07/09/17 Esomeprazole Magnesium [Nexium] 40 mg PO QDAC 05/01/14 07/09/17 Nystatin 1 each TOP TID PRN 08/07/14 07/09/17 Cetirizine [ZyrTEC] 10 mg PO DAILY 03/03/17 07/09/17 Glimepiride 1 mg PO 1700 03/03/17 07/09/17 guaiFENesin [Mucinex] 1,200 mg PO BID 03/03/17 07/09/17 metFORMIN [Glucophage] 500 mg PO BIDWM 03/03/17 07/09/17 predniSONE [Prednisone] 30 mg PO DAILY 05/14/17 07/09/17 - Allergies Allergies/Adverse Reactions: Allergies Allergy/AdvReac Type Severity Reaction Status Date / Time droperidol [From Inapsine] Allergy Severe EPS Verified 07/09/17 14:16 ibuprofen [From Motrin] Allergy Severe Anaphylaxis Verified 07/09/17 14:16 peanut Allergy Severe Anaphylaxis Verified 07/09/17 14:16 shellfish derived Allergy Severe Anaphylaxis Verified 07/09/17 14:16 Qrniota-[id number]-Ssb Reductase Allergy Severe muscle pain Verified 07/09/17 14:16 Inhibitor amoxicillin [Amoxicillin] Allergy Intermediate Hives Verified 07/09/17 14:16 cefazolin Allergy Intermediate Hives Verified 07/09/17 14:16 Cephalosporins Allergy Intermediate Hives Verified 07/09/17 14:16 clindamycin Allergy Intermediate Hives Verified 07/09/17 14:16 cyclobenzaprine Allergy Intermediate Hives/night Verified 07/09/17 14:16 [Cyclobenzaprine] castaneda erythromycin base Allergy Intermediate Hives Verified 07/09/17 14:16 [Erythromycin Base] potassium clavulanate * Allergy Intermediate Hives Verified 07/09/17 14:16 [From Augmentin] ketorolac tromethamine * Allergy Anaphylaxis Verified 07/09/17 14:16 [From Toradol] duloxetine AdvReac Severe Suicidal Verified 07/09/17 14:16 etanercept [From Enbrel] AdvReac Severe Nausea/vomm Verified 07/09/17 14:16 iting/cramp s methotrexate AdvReac Severe N/V/Cramps Verified 07/09/17 14:16 NSAIDS (Non-Steroidal AdvReac Severe N/V/Cramps Verified 07/09/17 14:16 Anti-Inflamma prochlorperazine AdvReac Severe EPS Verified 07/09/17 14:16 pseudoephedrine AdvReac Severe Tachycardia Verified 07/09/17 14:16 sumatriptan AdvReac Severe Widened QRS Verified 07/09/17 14:16 doxycycline AdvReac Intermediate Hives Verified 07/09/17 14:16 gabapentin AdvReac Intermediate Gait Verified 07/09/17 14:16 disturbance latex AdvReac Intermediate Sensitivity Verified 07/09/17 14:16 prochlorperazine edisylate * AdvReac Unknown Verified 07/09/17 14:16 [From Compazine] prochlorperazine maleate * AdvReac Unknown Verified 07/09/17 14:16 [From Compazine] Tape AdvReac Severe Blisters Uncoded 07/09/17 14:16 - Social History Does the pt smoke?: Yes Smoking Status: Current every day smoker Does the pt drink ETOH?: Yes Does the pt have substance abuse?: No - Immunizations Immunizations are current?: Yes - POLST Patient has POLST: Yes POLST Status: DNR PD ED PE NORMAL - Vitals Vital signs reviewed: Yes - General General: Alert and oriented X 3, No acute distress - HEENT HEENT: Moist mucous membranes - Cardiac Cardiac: No: RRR (tachycardic but regular) - Respiratory Respiratory: No respiratory distress - Abdomen Abdomen: Soft, Non tender - Derm Derm: Normal color, Other (has a 8cm round area of ulceration to the lateral aspect of her right knee that is chronic) - Extremities Extremities: No deformity - Neuro Neuro: Alert and oriented X 3, 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 Eye Opening: Spontaneous Motor: Obeys Commands - Psych Psych: Normal mood, Normal affect Results - Vitals Vitals: Vital Signs - 24 hr 07/09/17 07/09/17 07/09/17 14:13 15:01 15:53 Temperature 36.4 C L 37.3 C Heart Rate 112 H 99 101 H Respiratory 20 18 18 Rate Blood Pressure 105/79 121/72 142/66 H O2 Saturation 99 97 98 07/09/17 16:30 Temperature Heart Rate 98 Respiratory 16 Rate Blood Pressure 161/75 H O2 Saturation 96 Oxygen O2 Source [] Room air O2 Source Room air - EKG (time done) 1459 Rate: Rate (enter#) Rhythm: NSR [place]: Normal Intervals: Normal MT, QRS normal Ischemia: Normal ST segments - Labs Labs: Laboratory Tests 07/09/17 07/09/17 14:50 14:50 WBC 8.3 RBC 4.26 Hgb 11.9 L Hct 37.1 MCV 87.1 MCH 27.9 MCHC 32.1 RDW 20.3 H Plt Count 364 MPV 7.4 L Neut # 6.1 Lymph # 1.[address] [place] # 0.6 Eos # 0.1 Baso # 0.1 Absolute Nucleated RBC 0.01 Nucleated RBC % 0.1 Sodium 137 Potassium 3.5 Chloride 97 L Carbon Dioxide 28 Anion Gap 12.0 BUN 7 Creatinine 0.5 Estimated GFR (MDRD) 125 Glucose 126 H Calcium 8.7 Phosphorus 2.1 L Magnesium 1.6 L Total Bilirubin 0.7 AST 21 ALT 24 Alkaline Phosphatase 81 Total Protein 6.3 L Albumin 3.3 Globulin 3.0 Albumin/Globulin Ratio 1.1 Lipase 27 PD MEDICAL DECISION MAKING - ED course Complexity details: reviewed old records, reviewed results, considered differential, d/w patient, d/w PMD, d/w service delivery management consultant ED course: discussed case with pt's primary care provider who states that she is concerned about why the pt is losing the Mg and phos. She is concerned about the pt not being able to take care of herself on her own. Pt is mildly dehydrated. she does have a log phos and mg today. her other symptoms seem to be chronic. discussed case with admitting provider and will admit under observation for IV hydration and mg and phos replacement. Departure - Departure Disposition: ED Place in Observation Clinical Impression: Dehydration, Hypomagnesemia, Hypophosphatemia, Nausea & vomiting, Diarrhea Condition: Stable
[2017-07-09] MEDS ORDERED: ACETAMINOPHEN 325 MG TABLET PO PRN (16:37)
[2017-07-09] MEDS ORDERED: PROCHLORPERAZINE 10 MG/2 ML VIAL IVP PRN (16:37)
[2017-07-09] MEDS ORDERED: HYDROcod/ACETAM 5/325 MG TABLET PO PRN (16:37)
--- NOTE | 2017-07-09 16:46 | HISTORY & PHYSICAL EXAMINATION ---
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 Patient states that the symptoms started 4 days ago. She states that she last had a normal meal 5 days ago when she ate out with her friends and had a burrito was also. She states that the next day she began feeling nauseous and has been vomiting ever since. She states for the last 2 days it has just been dry heaving. The patient states that she has not been able to keep anything down. She states even when she tried to drink a glass of water she cannot keep it down. She states that she is having some mild abdominal discomfort with the nausea and vomiting but feels that it is just a muscle strain from all the dry heaving. She states that she has been having chills for the last 4 days. She also states that she has chronic diarrhea which has worsened over the last 4 days and she is concerned that it may be C. difficile as she was on Bactrim for 3 weeks for a dental abscess. The patient states that she has been unable to take her steroids orally or her antibiotics orally and is concerned about possibility of adrenal crisis or worsening dental infection. The patient denies any fevers. The patient has been to the emergency department several times in the last week and has been noted to have severe hypomagnesemia and hypophosphatemia. Patient has had her electrolytes replaced several times but continues to have difficulty taking anything orally and continues to vomit and therefore electrolytes continue to worsen. The patient states that she has been taking a pediatric antiemetic at home but has not used Zofran or any other antiemetic. The patient states that initially she thought she may just have the flu which she was quite achy and felt unwell however when she came to the ER earlier this week her influenza swab was negative. The patient also states that she has a chronic ulcer on her right knee which she is also concerned about being infected. She states that she has had poor appetite however has felt very thirsty but is not able to keep any fluids down The patient denies any headache, blurred vision, runny nose, sore throat, nasal congestion, difficulty swallowing, neck pain, neck stiffness, chest pain, shortness of air, orthopnea, PND, increased lower extremity swelling, constipation, urinary urgency, urinary frequency, dysuria, back pain, neck stiffness, recent unintentional weight loss, night sweats or any focal neurologic deficits. On presentation to the emergency department the patient was afebrile but she was tachycardic and blood pressure was initially low normal. The patient appeared to be quite dehydrated on examination she had dry mucous membranes. The patient's lab work revealed that she was did have hypophosphatemia and hypomagnesemia. The patient did not have any leukocytosis but did have a slight lymphopenia. The patient was given Zofran and Vicodin in the emergency department. She was also given IV fluids. Given that the patient has been having intractable nausea vomiting that just has not improved and has caused her to be unable to take any oral medications the patient is being placed in observation to try to resolve her symptoms and get her IV antibiotics and IV steroids. History - Past Medical History Cardiovascular: reports: Congestive heart failure, Hypertension Respiratory: reports: Other Neuro: reports: Other Endocrine/Autoimmune: reports: Type 2 diabetes GI: reports: GERD, Colon polyps, Chronic diarrhea, Other : reports: Incontinence HEENT: reports: Chronic vision loss, Chronic sinusitis Psych: reports: Depression, Anxiety, Obsessive compulsive disorder Musculoskeletal: reports: Osteoarthritis Derm: reports: Other MRSA Hx?: No Other Past Medical History: 1. 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 [place] syndrome 4. Diabetes secondary to chronic steroids 5. Obesity 6. Pulmonary hypertension 7. Congestive heart failure 8. Irritable bowel syndrome 9. Osteoarthritis 10. Anxiety 11. Depression 12. History of sphenoid sinus mass 13. History of small bowel obstruction 14. Nathalia syndrome 15. Trigeminal neuralgia 16. Fatty liver disease 17. Chronic back pain 18. History of small bowel obstruction 19. GERD 20. Polycystic ovarian syndrome - Past Surgical History General: reports: Cholecystectomy, Appendectomy, Bowel surgery, Other Ortho: reports: Knee replacement /HALL COORDINATOR: reports: 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, Oophrectomy Cardiovascular: reports: Cardiac catheterization HEENT: reports: Tonsil/Adenoidectomy - Family & Social History Family History Comment/Other: Patient's mother had asthma. Father had Alzheimer 's disease and coronary artery disease and is . 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 She is originally from the [place] in [facility]. She lives alone with her dog. She does not have any biological children. She is not . She is a smoker and continue to smoke a pack a day and has been smoking for 45 years. She does not drink alcohol. She did try to use cannibis for pain control but it did not work and she does not use any other illicit drugs. - Substance History Use: Uses substance without health or social issues: Tobacco - POLST Patient has POLST: Yes POLST Status: DNR Meds/Allgy - Home Medications Home Medications: Ambulatory Orders Medication Instructions Recorded Confirmed Aspirin [Aspirin EC] 650 mg PO QID 05/29/13 07/09/17 FLUoxetine [PROzac] 20 mg PO DAILY 05/29/13 07/09/17 Furosemide [Lasix] 40 mg PO DAILY PRN 05/29/13 07/09/17 Metoprolol Tartrate 50 mg PO BID 05/29/13 07/09/17 Potassium Chloride 20 meq PO DAILY PRN 05/29/13 07/09/17 Esomeprazole Magnesium [Nexium] 40 mg PO DAILY 05/01/14 07/09/17 Nystatin 1 each TOP DAILY 08/07/14 07/09/17 Cetirizine [ZyrTEC] 10 mg PO DAILY 03/03/17 07/09/17 Glimepiride 1 mg PO DAILY 03/03/17 07/09/17 guaiFENesin [Mucinex] 1,200 mg PO BID 03/03/17 07/09/17 metFORMIN [Glucophage] 500 mg PO BIDWM 03/03/17 07/09/17 predniSONE [Prednisone] 30 mg PO DAILY 05/14/17 07/09/17 ALPRAZolam [Alprazolam] 0.25 mg PO QPM PRN 07/09/17 07/09/17 - Allergies Allergies/Adverse Reactions: Allergies Allergy/AdvReac Type Severity Reaction Status Date / Time droperidol [From Inapsine] Allergy Severe EPS Verified 07/09/17 14:16 ibuprofen [From Motrin] Allergy Severe Anaphylaxis Verified 07/09/17 14:16 peanut Allergy Severe Anaphylaxis Verified 07/09/17 14:16 shellfish derived Allergy Severe Anaphylaxis Verified 07/09/17 14:16 Indbobh-Imc-Sum Reductase Allergy Severe muscle pain Verified 07/09/17 14:16 Inhibitor amoxicillin [Amoxicillin] Allergy Intermediate Hives Verified 07/09/17 14:16 cefazolin Allergy Intermediate Hives Verified 07/09/17 14:16 Cephalosporins Allergy Intermediate Hives Verified 07/09/17 14:16 clindamycin Allergy Intermediate Hives Verified 07/09/17 14:16 cyclobenzaprine Allergy Intermediate Hives/night Verified 07/09/17 14:16 [Cyclobenzaprine] castaneda erythromycin base Allergy Intermediate Hives Verified 07/09/17 14:16 [Erythromycin Base] potassium clavulanate * Allergy Intermediate Hives Verified 07/09/17 14:16 [From Augmentin] ketorolac tromethamine * Allergy Anaphylaxis Verified 07/09/17 14:16 [From Toradol] duloxetine AdvReac Severe Suicidal Verified 07/09/17 14:16 etanercept [From Enbrel] AdvReac Severe Nausea/vomm Verified 07/09/17 14:16 iting/cramp s methotrexate AdvReac Severe N/V/Cramps Verified 07/09/17 14:16 NSAIDS (Non-Steroidal AdvReac Severe N/V/Cramps Verified 07/09/17 14:16 Anti-Inflamma prochlorperazine AdvReac Severe EPS Verified 07/09/17 14:16 pseudoephedrine AdvReac Severe Tachycardia Verified 07/09/17 14:16 sumatriptan AdvReac Severe Widened QRS Verified 07/09/17 14:16 doxycycline AdvReac Intermediate Hives Verified 07/09/17 14:16 gabapentin AdvReac Intermediate Gait Verified 07/09/17 14:16 disturbance latex AdvReac Intermediate Sensitivity Verified 07/09/17 14:16 prochlorperazine edisylate * AdvReac Unknown Verified 07/09/17 14:16 [From Compazine] prochlorperazine maleate * AdvReac Unknown Verified 07/09/17 14:16 [From Compazine] Tape AdvReac Severe Blisters Uncoded 07/09/17 14:16 Review of Systems - Other Findings Other Findings: A comprehensive review of systems was performed the pertinent positives and negatives are stated above in the HPI and the remainder of the review of systems is negative. Exam - Vital Signs Reviewed Vital Signs: Yes Vital Signs: Vital Signs x48h Temp Pulse Resp BP Pulse Ox 07/09/17 16:30 98 16 161/75 H 96 07/09/17 15:53 37.3 C 101 H 18 142/66 H 98 07/09/17 15:01 99 18 121/72 97 07/09/17 14:13 36.4 C L 112 H 20 105/79 99 - Physical Exam General Appearance: positive: Alert, Mild distress (nauseated), Other (Morbidly obese) Eyes Bilateral: positive: Normal inspection, PERRL, EOMI, No lid inflammation, Conjunctivae nml, No scleral icterus ENT: positive: ENT inspection nml, Pharynx nml, Dry mucous membranes. negative : Purulent nasal drainage, Pharyngeal erythema, Oral lesions Neck: positive: Nml inspection, Thyroid nml, No JVD, Trachea midline. negative : Thyromegaly, Lymphadenopathy (R), Lymphadenopathy (L), Carotid bruit, Tracheal deviation Respiratory: positive: Chest non-tender, No respiratory distress, Breath sounds nml. negative: Wheezes, Rales, Rhonchi Cardiovascular: positive: No murmur, No gallop, Tachycardia Peripheral Pulses: positive: 2+ Abdomen: positive: No organomegaly, Nml bowel sounds, Tenderness (Mild mid abdomen), Other (Umbilical hernia). negative: Guarding, Rebound Back: positive: Nml inspection. negative: CVA tenderness (R), CVA tenderness (L ) Skin: positive: Other (Chronic non infected ulcer on the right knee, chronic changes of dermatitis on bilateral LEs) Extremities: positive: Full ROM, Pedal edema Neurologic/Psychiatric: positive: Oriented x3, CN's nml (2-12), Motor nml, Sensation nml, Mood/affect nml Conclusion/Plan - Problem List (1) Intractable nausea and vomiting Conclusion/Plan: Patient has not had intractable nausea vomiting for the past 4 days. Along with the nausea vomiting she states she is also had worsening diarrhea but does have chronic diarrhea. Initially thought she may have food poisoning however this symptoms have continued on for several days. The patient then thought she may have a virus but she was tested for the flu and that was negative. The patient has not been able to take any of her oral medication including antibiotic for dental abscess as well as her chronic steroids which she has been tapering down. Patient has been to the ER multiple times in the last week and has been found to have low levels of magnesium and phosphorus with electrolyte disturbances. The patient has had both replaced several times however given that she cannot keep anything down orally it has been hard to maintain the electrolytes. Again today she presents with dehydration and electrolyte disturbances. The patient is being placed in observation for IV hydration, electrolyte replacement and nausea control. Likely the patient has a viral gastroenteritis however patient also tells me that she has been taking CBD in order to control pain and she may be developing cyclic vomiting syndrome from cannabis. The patient is also been having worsening diarrhea over the last 4 days and had been on long-term antibiotics prior to the starting so there is some concern for possibility of C. difficile as well. Plan: IV fluids IV antiemetics Pain control Electrolyte replacement Change antibiotics and steroids to IV Monitor closely Check C. difficile and stool culture Qualifiers: Vomiting type: unspecified Qualified Code(s): R11.2 - Nausea with vomiting , unspecified (2) Dental abscess Conclusion/Plan: Patient has tooth infection with abscess in the right upper molars. The patient has had it chronically treated with Bactrim for over 3 weeks but has been unable to take her oral antibiotics for the last 4 days due to intractable nausea and vomiting as above. The patient is supposed to get extraction of her teeth at the [facility] but has been unable to afford to go down there. Plan: Patient will be placed on IV vancomycin for treatment of her dental abscess while she is hospitalized until she is able to tolerate p.o. intake then will be switched back to her oral Bactrim. (3) Hypomagnesemia Conclusion/Plan: On presentation to the emergency department patient is hypomagnesemic with a magnesium of 1.6. The patient has had chronic hypomagnesemia with magnesium level of as low as 0.4 just 3 days earlier. The patient continues to get hypomagnesemia due to diarrhea as well as intractable nausea vomiting. Plan: Patient will get IV magnesium replacement We will monitor magnesium daily Replace magnesium as needed (4) Hypophosphatemia Conclusion/Plan: Patient has hypophosphatemia secondary to intractable nausea vomiting and chronic diarrhea. Patient's phosphorus will be replaced in the emergency department via IV. We will continue to monitor the patient's phosphorus daily and replace as needed. (5) Reactive arthritis Conclusion/Plan: The patient has history of reactive arthritis for which she is on chronic steroids. The patient has been getting a tapered dose of steroids which has been decreased from as high as 120 mg down to 30 mg recently. The patient has been unable to take her steroids for the last 4 days due to her intractable nausea and vomiting. She was concerned about possible adrenal crisis however the patient's blood pressure is stable and she does not appear to have adrenal crisis. Plan: Patient will be placed on IV Solu-Medrol [address] of her prednisone 30 mg until she is able to tolerate p.o. intake that she will be switched back to her oral prednisone Patient will be given Hawthorn for pain control (6) Diabetes Conclusion/Plan: Patient has history of diabetes secondary to steroid use. Patient's blood glucose on presentation is 126. The patient at home takes metformin and glimepiride Plan: While patient is hospitalized we will hold the metformin and glimepiride and place patient on sliding scale insulin and diabetic diet we will monitor blood glucose before meals at bedtime. We will get hemoglobin A1c Qualifiers: Diabetes mellitus type: type 2 (7) Depression Conclusion/Plan: Patient has history of depression and has had suicide attempt in the past. The patient is currently on Prozac at home and will be continued on Prozac and alprazolam while she is hospitalized. Currently the patient's mood appears to be stable Qualifiers: Depression Type: major depressive disorder Major depression recurrence: recurrent Active/Remission status: in partial remission Qualified Code(s): F33.41 - Major depressive disorder, recurrent, in partial remission - Lab Results Fish Bones: 07/09/17 14:50 07/09/17 14:50 Other Lab Results: Laboratory Results WBC 8.3 x10^3/uL (4.8-10.8) 07/09/17 14:50 RBC 4.26 10^6/uL (4.20-5.40) 07/09/17 14:50 Hgb 11.9 g/dL (12.0-16.0) L 07/09/17 14:50 Hct 37.1 % (37.0-47.0) 07/09/17 14:50 MCV 87.1 fL (81.0-99.0) 07/09/17 14:50 MCH 27.9 pg (27.0-31.0) 07/09/17 14:50 MCHC 32.1 g/dL (32.0-36.0) 07/09/17 14:50 RDW 20.3 % (12.0-15.0) H 07/09/17 14:50 Plt Count 364 10^3/uL (130-450) 07/09/17 14:50 MPV 7.4 fL (7.9-10.8) L 07/09/17 14:50 Neut # 6.1 10^3/uL (1.5-6.6) 07/09/17 14:50 Lymph # 1.4 10^3/uL (1.5-3.5) L 07/09/17 14:50 Mcdonough # 0.6 10^3/uL (0.0-1.0) 07/09/17 14:50 Eos # 0.1 10^3/uL (0.0-0.7) 07/09/17 14:50 Baso # 0.1 10^3/uL (0.0-0.1) 07/09/17 14:50 Absolute Nucleated RBC 0.01 x10^3/uL 07/09/17 14:50 Nucleated RBC % 0.1 /100WBC 07/09/17 14:50 Sodium 137 mmol/L (135-145) 07/09/17 14:50 Potassium 3.5 mmol/L (3.5-5.0) 07/09/17 14:50 Chloride 97 mmol/L (101-111) L 07/09/17 14:50 Carbon Dioxide 28 mmol/L (21-32) 07/09/17 14:50 Anion Gap 12.0 (6-13) 07/09/17 14:50 BUN 7 mg/dL (6-20) 07/09/17 14:50 Creatinine 0.5 mg/dL (0.4-1.0) 07/09/17 14:50 Estimated GFR (MDRD) 125 (>89) 07/09/17 14:50 Glucose 126 mg/dL (70-100) H 07/09/17 14:50 Calcium 8.7 mg/dL (8.5-10.3) 07/09/17 14:50 Phosphorus 2.1 mg/dL (2.5-4.6) L 07/09/17 14:50 Magnesium 1.6 mg/dL (1.7-2.8) L 07/09/17 14:50 Total Bilirubin 0.7 mg/dL (0.2-1.0) 07/09/17 14:50 AST 21 IU/L (10-42) 07/09/17 14:50 ALT 24 IU/L (10-60) 07/09/17 14:50 Alkaline Phosphatase 81 IU/L (42-121) 07/09/17 14:50 Total Protein 6.3 g/dL (6.7-8.2) L 07/09/17 14:50 Albumin 3.3 g/dL (3.2-5.5) 07/09/17 14:50 Globulin 3.0 g/dL (2.1-4.2) 07/09/17 14:50 Albumin/Globulin Ratio 1.1 (1.0-2.2) 07/09/17 14:50 Lipase 27 U/L (22-51) 07/09/17 14:50 Core Measures - Anticipated LOS I expect patient to be DC'd or transferred within 96 hours.: Yes - DVT/VTE - Prophylaxis VTE/DVT Prophylaxis med ordered at admit?: Yes
[2017-07-09] MEDS ORDERED: CLINDAMYCIN 600 MG/50 ML 50 ML IV SCH (18:00)
[2017-07-09] MEDS ORDERED: CIPROFLOXACIN 400 MG/200 ML 200 ML IV SCH (18:00)
[2017-07-09] MEDS ORDERED: VANCOMYCIN PER PHARMACY 1 GM in SODIUM CHLORIDE 0.9% 250 ML IV SCH (18:00)
[2017-07-09] MEDS: SODIUM CHLORIDE 0.9% 1,000 ML IV SCH (18:28)
[2017-07-09] MEDS: ASPIRIN EC 325 MG TABLET PO SCH ×2 (18:29→21:21)
[2017-07-09] MEDS: SODIUM CHLORIDE FLUSH 0.9% 10 ML SYRINGE IVP SCH (18:29)
[2017-07-09] MEDS: INSULIN ASPART 300 UNIT/3 ML PEN SUBQ SCH ×2 (18:34→21:48)
[2017-07-09] MEDS: PROMETHAZINE 25 MG/1 ML VIAL IM PRN (18:54)
[2017-07-09] MEDS ORDERED: VANCOMYCIN INJ 1 GM in SODIUM CHLORIDE 0.9% 250 ML IV SCH (19:00)
[2017-07-09] MEDS ORDERED: VANCOMYCIN 2 GM/NS 500 ML 2 GM/500 ML BAG IV SCH (19:00)
[2017-07-09] MEDS ORDERED: NYSTATIN POWDER 15 GM TOP PRN (21:00)
[2017-07-09] MEDS: METOPROLOL TARTRATE 50 MG TABLET PO SCH (21:17)
[2017-07-09] MEDS: HYDROcod/ACETAM 10 MG/325 MG TABLET PO PRN (21:17)
[2017-07-09] MEDS: FAMOTIDINE 20 MG/50 ML 50 ML IV SCH (22:15)
[2017-07-10] MEDS: ONDANSETRON 4 MG/2 ML VIAL IVP PRN ×4 (01:09→20:17)
[2017-07-10] MEDS: HYDROcod/ACETAM 10 MG/325 MG TABLET PO PRN ×4 (01:23→23:27)
[2017-07-10 06:25] LABS: BASOPHILS # (AUTO) 0.1 10^3/uL (0.0-0.1); BASOPHILS % (AUTO) 0.8 %; EOSINOPHILS # (AUTO) 0.1 10^3/uL (0.0-0.7); EOSINOPHILS % (AUTO) 1.5 %; HGB - HEMOGLOBIN 10.5 g/dL (12.0-16.0); LYMPHOCYTES # (AUTO) 1.2 10^3/uL (1.5-3.5); LYMPHOCYTES % (AUTO) 19.8 %; MEAN CORPUSCULAR HEMOGLOBIN 27.4 pg (27.0-31.0); MEAN CORPUSCULAR HGB CONC 31.4 g/dL (32.0-36.0); MEAN CORPUSCULAR VOLUME 87.4 fL (81.0-99.0); MEAN PLATELET VOLUME 7.1 fL (7.9-10.8); MONOCYTES # (AUTO) 0.6 10^3/uL (0.0-1.0); NEUTROPHILS # (AUTO) 4.2 10^3/uL (1.5-6.6); NEUTROPHILS % (AUTO) 67.9 %; PLT - PLATELET COUNT 340 10^3/uL (130-450); RED BLOOD COUNT 3.84 10^6/uL (4.20-5.40); RED CELL DISTRIBUTION WIDTH 20.9 % (12.0-15.0); WHITE BLOOD COUNT 6.2 x10^3/uL (4.8-10.8)
[2017-07-10 06:29] LABS: ALBUMIN 2.6 g/dL (3.2-5.5); ALBUMIN/GLOBULIN RATIO 0.9 (1.0-2.2); BILIRUBIN,TOTAL 0.4 mg/dL (0.2-1.0); CALCIUM 7.5 mg/dL (8.5-10.3); CREATININE 0.5 mg/dL (0.4-1.0); MAGNESIUM 1.5 mg/dL (1.7-2.8); PHOSPHORUS 2.6 mg/dL (2.5-4.6); TOTAL PROTEIN 5.4 g/dL (6.7-8.2)
[2017-07-10 06:32] LABS: HB2 TOTAL 10.9 g/dL; HEMOGLOBIN A1C 0.56 g/dL; HEMOGLOBIN A1C % 6.9 % (4.6-6.2)
[2017-07-10] MEDS: VANCOMYCIN INJ 1 GM in SODIUM CHLORIDE 0.9% 250 ML IV SCH ×2 (06:47→18:58)
[2017-07-10] MEDS: SODIUM CHLORIDE FLUSH 0.9% 10 ML SYRINGE IVP SCH ×3 (06:47→20:41)
[2017-07-10 06:49] LABS: PLATELET ESTIMATE, MANUAL NORMAL (130-450,000) (NORMAL)
[2017-07-10] MEDS: SODIUM CHLORIDE 0.9% 1,000 ML IV SCH (06:57)
[2017-07-10] MEDS ORDERED: methylPREDNISolone SUCCINATE 40 MG/ML VIAL IVP SCH (09:00)
[2017-07-10] MEDS ORDERED: MAGNESIUM SULFATE 2 GRAM 2 GM/50 ML BAG IV SCH (09:00)
[2017-07-10] MEDS ORDERED: predniSONE 20 MG TABLET PO SCH (09:00)
[2017-07-10] MEDS ORDERED: POLYETHYLENE GLYCOL 3350 17 GM PACKET PO SCH (09:00)
[2017-07-10] MEDS ORDERED: ENOXAPARIN 40 MG/0.4 ML SYRINGE SUBQ SCH (09:00)
[2017-07-10] MEDS ORDERED: FLUoxetine 10 MG CAPSULE PO SCH (09:00)
[2017-07-10] MEDS: ASPIRIN EC 325 MG TABLET PO SCH ×4 (09:06→20:40)
[2017-07-10] MEDS: METOPROLOL TARTRATE 50 MG TABLET PO SCH ×2 (09:07→20:37)
[2017-07-10] MEDS: INSULIN ASPART 300 UNIT/3 ML PEN SUBQ SCH ×4 (09:08→20:41)
[2017-07-10] MEDS: NS W/40 MEQ KCL 1,000 ML IV SCH (11:00)
[2017-07-10] MEDS: FAMOTIDINE 20 MG/50 ML 50 ML IV SCH ×2 (11:16→20:33)
--- NOTE | 2017-07-10 13:06 | PROVIDER PROGRESS NOTE ---
Assessment/Plan - Problem List (1) Intractable nausea and vomiting Qualifiers: Vomiting type: unspecified Qualified Code(s): R11.2 - Nausea with vomiting , unspecified Assessment/Plan: Improved but no adequate nutrition yet. Will advance diet as tolerated to diabetic diet w/ ss Insulin to cover. Will decrease iv rate and change to NS wth KCl, due to hypokalemia (2) Diarrhea Assessment/Plan: C diff and Campylobacter are neg. Diahrrea has also improved. Continue to treat symptoms and correct lab abnormalities (3) Dental abscess Assessment/Plan: Pt on iv Vanco, since she was vomiting up her oral antibiotic. If pt stable for DCh tomorrow, will resume her Bactrim for DCh. (4) Hypomagnesemia Assessment/Plan: Due to losses with vomiting and diarrhea. Will replace Mg and continue to follow daily labs (5) Diabetes Qualifiers: Diabetes mellitus type: type 2 Assessment/Plan: Continue ss Insulin as her diet advances (6) Ulcer of leg, chronic, right Assessment/Plan: Continue Tegaderm and management as previous - Current Meds Current Meds: Current Medications Generic Name Dose Route Start Last Admin Trade Name Freq PRN Reason Stop Dose Admin Acetaminophen/Hydrocodone Bitart 1 tab 07/09/17 16:37 07/10/17 05:18 [place] 10 Mg/325 Mg PO 1 tab Q4HR PRN Administration Pain 8 to 10 Aspirin 650 mg 07/09/17 17:00 07/10/17 09:06 Ecotrin PO 650 mg QID RIVERA Administration Enoxaparin Sodium 40 mg 07/10/17 09:00 07/10/17 09:07 Lovenox SUBQ 40 mg DAILY RIVERA Administration Fluoxetine HCl 20 mg 07/10/17 09:00 07/10/17 09:06 Prozac PO 20 mg DAILY RIVERA Administration Famotidine 50 mls @ 100 mls/hr 07/09/17 21:00 07/10/17 12:07 Pepcid 20 Mg/50 Ml IV Infused BID RIVERA Infusion Vancomycin HCl 1 gm/ Sodium 250 mls @ 167 mls/hr 07/10/17 07:00 07/10/17 08: 47 Chloride IV Infused Q12H RIVERA Infusion Potassium Chloride/Sodium Chloride 1,000 mls @ 60 mls/hr 07/10/17 09:00 07/10 11:00 Normal Saline 0.9% W/40 Meq Kcl IV 60 mls/hr .[id number] RIVERA Administration Insulin Aspart 1 - 5 unit 07/09/17 17:00 07/10/17 12:20 Novolog SUBQ 1 unit 0800,1200,1700,2100 RIVERA Administration Protocol Methylprednisolone 40 mg 07/10/17 09:00 07/10/17 09:07 Solu-Medrol (40mg Vial) IVP 40 mg DAILY RIVERA Administration Metoprolol Tartrate 50 mg 07/09/17 21:00 07/10/17 09:07 Lopressor PO 50 mg BID RIVERA Administration Ondansetron HCl 4 mg 07/09/17 16:37 07/10/17 06:47 Zofran Inj IVP 4 mg Q6HR PRN Administration Nausea / Vomiting Polyethylene Glycol 17 gm 07/10/17 09:00 07/10/17 09:09 Miralax PO Not Given DAILY RIVERA Promethazine HCl 25 mg 07/09/17 16:37 07/09/17 18:54 Phenergan Inj IM 25 mg Q6HR PRN Administration Nausea / Vomiting Sodium Chloride 10 ml 07/09/17 22:00 07/10/17 06:47 Normal Saline Flush 0.9% IVP 10 ml Q8HR RIVERA Administration - Lab Result Fish Bone Diagrams: 07/10/17 06:01 07/10/17 06:01 - Additional Planning My Orders: My Active Orders 07/10/17 Social Work Consult [CONS] Routine 07/10/17 09:00 Ns W/40 Meq KCl [Normal Saline 0.9% W/40 Meq KCl] 1,000 ml IV 60 mls/hr Subjective - Subjective Patient Reports: Feeling Better, Nausea, Other (No more vomiting and tolerated tea, broth and crackers.) Nursing Reports: Other (Pt wants to be seen by a Dialysis Biomed Technician.) Objective Vital Signs: Vital Signs - 24 hr 07/09/17 07/09/17 07/09/17 17:29 17:50 22:00 Temperature 37.1 C 37.2 C Heart Rate 103 H Heart Rate [ 106 H 86 Brachial] Respiratory 17 22 18 Rate Blood Pressure 117/60 Blood Pressure 125/84 H 136/62 H [Left Brachial artery] O2 Saturation 97 95 94 07/10/17 07/10/17 07/10/17 00:52 05:51 08:59 Temperature 37.1 C 36.5 C 36.4 C L Heart Rate Heart Rate [ 72 64 78 Brachial] Respiratory 20 20 16 Rate Blood Pressure Blood Pressure 97/60 114/57 L 101/68 [Left Brachial artery] O2 Saturation 93 96 92 07/10/17 09:07 Temperature Heart Rate Heart Rate [ Brachial] Respiratory Rate Blood Pressure 101/68 Blood Pressure [Left Brachial artery] O2 Saturation Oxygen O2 Source Room air I&O (Last 24 Hrs): Intake and Output Totals x24h 07/08/17 07/09/17 07/10/17 23:59 23:59 23:59 Intake Total 1870 2886.000 Output Total 125 Balance 1870 2761.000 General: Alert, No acute distress HEENT: Mucous membr. moist/pink Neck: Supple Neuro: Non Focal Cardiovascular: Regular rate Respiratory: No respiratory distress Abdomen: Soft, Other (Obese with a pannus) Extremities: Other (Large open ulcer of R davis, covered with Tegaderm, has white borders but clean middle with clear, serous draining) - Results Results: Laboratory Results WBC 6.2 x10^3/uL (4.8-10.8) 07/10/17 06:01 RBC 3.84 10^6/uL (4.20-5.40) L 07/10/17 06:01 Hgb 10.5 g/dL (12.0-16.0) L 07/10/17 06:01 Hct 33.6 % (37.0-47.0) L 07/10/17 06:01 MCV 87.4 fL (81.0-99.0) 07/10/17 06:01 MCH 27.4 pg (27.0-31.0) 07/10/17 06:01 MCHC 31.4 g/dL (32.0-36.0) L 07/10/17 06:01 RDW 20.9 % (12.0-15.0) H 07/10/17 06:01 Plt Count 340 10^3/uL (130-450) 07/10/17 06:01 MPV 7.1 fL (7.9-10.8) L 07/10/17 06:01 Neut # 4.2 10^3/uL (1.5-6.6) 07/10/17 06:01 Lymph # 1.2 10^3/uL (1.5-3.5) L 07/10/17 06:01 [place] # 0.6 10^3/uL (0.0-1.0) 07/10/17 06:01 Eos # 0.1 10^3/uL (0.0-0.7) 07/10/17 06:01 Baso # 0.1 10^3/uL (0.0-0.1) 07/10/17 06:01 Absolute Nucleated RBC 0.00 x10^3/uL 07/10/17 06:01 Nucleated RBC % 0.0 /100WBC 07/10/17 06:01 Manual Slide Review Indicated 07/10/17 06:01 Platelet Estimate NORMAL (130-450,000) (NORMAL) 07/10/17 06:01 RBC Morph Micro Appear 1+ ANISOCYTOSIS (NORMAL) 1+ POLYCHROMASIA (NORMAL) 1+ HYPOCHROMASIA (NORMAL) FEW TEARDROPS (NORMAL) 1+ OVALOCYTES (NORMAL) 06:01 RBC Morph Micro Appear 1+ ANISOCYTOSIS (NORMAL) 1+ POLYCHROMASIA (NORMAL) 1+ HYPOCHROMASIA (NORMAL) FEW TEARDROPS (NORMAL) 1+ OVALOCYTES (NORMAL) 06:01 RBC Morph Micro Appear 1+ ANISOCYTOSIS (NORMAL) 1+ POLYCHROMASIA (NORMAL) 1+ HYPOCHROMASIA (NORMAL) FEW TEARDROPS (NORMAL) 1+ OVALOCYTES (NORMAL) 06:01 RBC Morph Micro Appear 1+ ANISOCYTOSIS (NORMAL) 1+ POLYCHROMASIA (NORMAL) 1+ HYPOCHROMASIA (NORMAL) FEW TEARDROPS (NORMAL) 1+ OVALOCYTES (NORMAL) 06:01 RBC Morph Micro Appear 1+ ANISOCYTOSIS (NORMAL) 1+ POLYCHROMASIA (NORMAL) 1+ HYPOCHROMASIA (NORMAL) FEW TEARDROPS (NORMAL) 1+ OVALOCYTES (NORMAL) 06:01 Sodium 137 mmol/L (135-145) 07/10/17 06:01 Potassium 3.3 mmol/L (3.5-5.0) L 07/10/17 06:01 Chloride 101 mmol/L (101-111) 07/10/17 06:01 Carbon Dioxide 25 mmol/L (21-32) 07/10/17 06:01 Anion Gap 11.0 (6-13) 07/10/17 06:01 BUN 8 mg/dL (6-20) 07/10/17 06:01 Creatinine 0.5 mg/dL (0.4-1.0) 07/10/17 06:01 Estimated GFR (MDRD) 125 (>89) 07/10/17 06:01 Glucose 123 mg/dL (70-100) H 07/10/17 06:01 POC Whole Bld Glucose 173 mg/dL (70 - 100) H 07/10/17 11:43 Glycated Hemoglobin 6.9 % (4.6-6.2) H 07/10/17 06:01 Estim Average Glucose 151 (70-100) H 07/10/17 06:01 Calcium 7.5 mg/dL (8.5-10.3) L 07/10/17 06:01 Phosphorus 2.6 mg/dL (2.5-4.6) 07/10/17 06:01 Magnesium 1.5 mg/dL (1.7-2.8) L 07/10/17 06:01 Total Bilirubin 0.4 mg/dL (0.2-1.0) 07/10/17 06:01 AST 25 IU/L (10-42) 07/10/17 06:01 ALT 22 IU/L (10-60) 07/10/17 06:01 Alkaline Phosphatase 70 IU/L (42-121) 07/10/17 06:01 Total Protein 5.4 g/dL (6.7-8.2) L 07/10/17 06:01 Albumin 2.6 g/dL (3.2-5.5) L 07/10/17 06:01 Globulin 2.8 g/dL (2.1-4.2) 07/10/17 06:01 Albumin/Globulin Ratio 0.9 (1.0-2.2) L 07/10/17 06:01 Lipase 27 U/L (22-51) 07/09/17 14:50 Stool Leukocytes, Qual NEGATIVE (Negative) 07/09/17 19:40 - Procedures Procedures: Procedures ARTHROCENTESIS (08/24/14) PACKED CELL TRANSFUSION (08/24/14) RONALD OF KNEE REPLACEMENT, PATELLAR COMPONENT (05/02/14) RONALD OF TOTAL KNEE REPLACEMENT, TIBIAL INSERT (LINER) (05/02/14) TOTAL KNEE REPLACEMENT (08/08/14) VENOUS CATHETERIZATION NEC (08/24/14)
[2017-07-10] MEDS: SODIUM CHLORIDE FLUSH 0.9% 10 ML SYRINGE IVP PRN (17:07)
[2017-07-10] MEDS: PROMETHAZINE 25 MG/1 ML VIAL IM PRN (18:20)
[2017-07-10] MEDS ORDERED: ALPRAZolam 0.25 MG TABLET PO PRN (22:51)
[2017-07-11] MEDS: SODIUM CHLORIDE FLUSH 0.9% 10 ML SYRINGE IVP PRN ×2 (00:43→05:36)
[2017-07-11 04:46] VITALS: BP 150/98
[2017-07-11] MEDS: HYDROcod/ACETAM 10 MG/325 MG TABLET PO PRN (05:05)
[2017-07-11] MEDS: ONDANSETRON 4 MG/2 ML VIAL IVP PRN (05:05)
[2017-07-11] MEDS: SODIUM CHLORIDE FLUSH 0.9% 10 ML SYRINGE IVP SCH (05:05)
[2017-07-11] MEDS ORDERED: PROMETHAZINE 25 MG/1 ML VIAL ONE (05:16)
[2017-07-11] MEDS: PROMETHAZINE 25 MG/1 ML VIAL IM PRN (05:35)
[2017-07-11 07:06] LABS: BASOPHILS % (AUTO) 0.4 %; HGB - HEMOGLOBIN 11.1 g/dL (12.0-16.0); LYMPHOCYTES # (AUTO) 0.9 10^3/uL (1.5-3.5); LYMPHOCYTES % (AUTO) 8.7 %; MEAN CORPUSCULAR HEMOGLOBIN 27.2 pg (27.0-31.0); MEAN CORPUSCULAR HGB CONC 30.3 g/dL (32.0-36.0); MEAN CORPUSCULAR VOLUME 89.7 fL (81.0-99.0); MEAN PLATELET VOLUME 7.5 fL (7.9-10.8); MONOCYTES # (AUTO) 0.7 10^3/uL (0.0-1.0); NEUTROPHILS # (AUTO) 8.8 10^3/uL (1.5-6.6); NEUTROPHILS % (AUTO) 83.9 %; PLT - PLATELET COUNT 409 10^3/uL (130-450); RED CELL DISTRIBUTION WIDTH 20.3 % (12.0-15.0); WHITE BLOOD COUNT 10.5 x10^3/uL (4.8-10.8)
[2017-07-11 07:16] LABS: ALBUMIN 3.2 g/dL (3.2-5.5); ALBUMIN/GLOBULIN RATIO 0.9 (1.0-2.2); ALKALINE PHOSPHATASE 80 IU/L (42-121); ALT ALANINE AMINOTRANSFERASE 27 IU/L (10-60); AST ASPARTATE AMINOTRANSFERASE 26 IU/L (10-42); BILIRUBIN,TOTAL < 0.2 mg/dL (0.2-1.0); BUN - BLOOD UREA NITROGEN 13 mg/dL (6-20); CALCIUM 8.2 mg/dL (8.5-10.3); CARBON DIOXIDE - CO2 24 mmol/L (21-32); CHLORIDE 102 mmol/L (101-111); CREATININE 0.6 mg/dL (0.4-1.0); GFR - MDRD 102 (>89); GLUCOSE 196 mg/dL (70-100); PHOSPHORUS 1.6 mg/dL (2.5-4.6); SODIUM 137 mmol/L (135-145); TOTAL PROTEIN 6.7 g/dL (6.7-8.2)
[2017-07-11] MEDS: NS W/40 MEQ KCL 1,000 ML IV SCH (07:39)
[2017-07-11] MEDS ORDERED: VANCOMYCIN INJ 1 GM in SODIUM CHLORIDE 0.9% 250 ML IV SCH (08:00)
--- NOTE | 2017-07-11 08:09 | Discharge Plan ---
Discharge Plan Disposition: 07 Against Medical Advice Condition: Poor Diet: Diabetic Activity Restrictions: Activity as Tolerated Shower Restrictions: No No Smoking: If you smoke, Please STOP! Call for help. Follow-up with: GIRMA LOPEZ MD [Primary Care Provider] -
--- NOTE | 2017-07-11 11:13 | ADVANCE CARE PLANNING NOTE ---
Advance Care Planning - Date/Time Date: 07/11/17 Time: 07:30 - Purpose of encounter Text: To clarify her wishes regarding her immediate care and Code status, and to reiterate hospital policy of No Smoking on the hospital campus. This morning the patient wanted to go outside "for 20 minutes to have a smoke". She was denied this. Patient is aware that this is not a policy that can be allowed. Then the patient told the nursing wastewater supervisor that she wanted to "jump off a bridge to ". The wastewater supervisor then apparently stated that the patient was possibly suicidal and then "a line-up of staff was outside her room, as if she was a criminal." The patient tells me she said this because she is frustrated over not being able to smoke, and that she is not suicidal (even though she did have an admission for a suicidal attempt approximately 5 months previously, was stabilized and transferred to an inpatient psychiatric center). She tells me today that her intention was not a suicidal ideation but rather that she wants to naturally as she "has had enough of" all of her multiple medical problems. The patient states that "without her nicotine she cannot digest food". And since her nausea and vomiting are better, she has started to take liquids but these are "not getting digested" and she still has dry heaves and the liquids, up 45 minutes after eating and drinking. The patient plans to go home for advancing her diet plus being able to smoke cigarettes and she will go to a different hospital if there are still problems with fevers. - Parties in attendance Parties in attendance: The patient and I had this meeting. - Decisional capacity Decisional capacity of: She is able to make her own decisions. She does appear anxious to have a smoke currently to get nicotine. She states that she will not use a Nicoderm patch, because it "rips her skin". - Subjective/Patient's story Subjective/Patient's story: She has multiple medical problems. 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 She lives alone with a pet dog. She has no children, was never , has no other family that are close. She is a 1 pack-a-day smoker for many years and does not want to quit (see below ). - Objective/Medical story Objective/Medical Story: The patient has multiple medical problems: diabetes from chronic steroid use, reactive arthritis requiring chronic steroids, morbid obesity and Cushingoid, depression with prior suicidal attempts, anxiety with claustrophobia, recent recurrent nausea and vomiting possibly from IBS or gastroparesis or recent antibiotic use, recurrent diarrhea possibly related to these antibiotics, she is on antibiotics for a dental abscess that has not resolved in 3 weeks and she will have dental surgery in a few weeks, chronic leg ulcer followed at the [facility], Nathalia syndrome, Reiters syndrome, pulmonary hypertension, IBS, polycystic ovarian syndrome, cholecystectomy and R knee replacement. The patient was admitted with fever, nausea and vomiting, unrelenting for 4 days and was unable to keep down her outpatient oral antibiotics plus her chronic oral steroids and was admitted for rehydration, IV antibiotics, IV steroids and workup of her fever. Her nausea and vomiting have improved however she is not yet taking adequate fluids. The patient is eager to leave however because she wants to smoke which will "help her digest her food". This morning the lab called with results of a positive Gram stain on her blood culture, the culture is not growing anything yet and was sent out for a longer culture. This possible bacteremia and its management was reviewed with the patient however she has decided to leave now, be cared for at a different hospital and she will be signing out AMA after this meeting. - Plan Plan: The patient reiterates to me her wish to be a DNR (that has already been signed) , and that she does not want to quit smoking because she does not care if this makes her sicker because she is "ready to and be with Remigio", because she is "sick and tired" of dealing with her multiple pathologies. - Code Status Code Status: Do Not Attempt Resuscitation - Time Spent on Advance Care Planning Time spent on advance care plannin min
== END 2017-07-11 08:20 | disposition left against medical advice (07) ==
LOC: ED 14:07 → OBS 16:37
PROVIDERS: ADMIT Internal Medicine; ATTEND Internal Medicine
DX: R11.2 Nausea with vomiting, unspecified (principal); R50.9 Fever, unspecified; K04.7 Periapical abscess without sinus; E83.42 Hypomagnesemia; E83.39 Other disorders of phosphorus metabolism; M02.30 Reiter's disease, unspecified site; K58.0 Irritable bowel syndrome with diarrhea; E09.622 Drug or chemical induced diabetes mellitus with other skin ulcer; L97.829 Non-pressure chronic ulcer of other part of left lower leg with unspecified severity; T38.0X5S Adverse effect of glucocorticoids and synthetic analogues, sequela; F33.41 Major depressive disorder, recurrent, in partial remission; G90.2 Horner's syndrome; E24.2 Drug-induced Cushing's syndrome; I27.20 Pulmonary hypertension, unspecified; I50.9 Heart failure, unspecified; G93.6 Cerebral edema; B94.8 Sequelae of other specified infectious and parasitic diseases; E66.2 Morbid (severe) obesity with alveolar hypoventilation; Z68.42 Body mass index [BMI] 45.0-49.9, adult; G47.00 Insomnia, unspecified; M19.90 Unspecified osteoarthritis, unspecified site; H54.7 Unspecified visual loss; J32.8 Other chronic sinusitis; F42.9 Obsessive-compulsive disorder, unspecified; F41.9 Anxiety disorder, unspecified; R32 Unspecified urinary incontinence; Z96.659 Presence of unspecified artificial knee joint; F17.210 Nicotine dependence, cigarettes, uncomplicated; Z79.84 Long term (current) use of oral hypoglycemic drugs; Z79.82 Long term (current) use of aspirin; Z79.2 Long term (current) use of antibiotics; K21.9 Gastro-esophageal reflux disease without esophagitis; Z79.899 Other long term (current) drug therapy; Z91.5 Personal history of self-harm; Z96.651 Presence of right artificial knee joint; Z90.710 Acquired absence of both cervix and uterus; Z66 Do not resuscitate
CPT/HCPCS: 36415; 80053; 80202; 83036; 83630; 83690; 83735; 84100; 85025; 87045; 87046; 87493; 93005; 96361; 96365; 96366; 96367; 96368; 96372; 96375; 96376; 99284; A9270; G0378; J1650; J3370; Q0162; 96360

== ENCOUNTER 2017-07-26 14:39 | Outpatient (CLI) | payer MEDICARE | END 2017-07-26 14:40 | disposition critical access hospital (66) | LOC: EMS 14:39 | PROVIDERS: ATTEND Surgery | DX: R07.9 Chest pain, unspecified (principal); F41.9 Anxiety disorder, unspecified | CPT/HCPCS: A0425; A0427 ==

== ENCOUNTER 2017-07-26 14:49 | Emergency (ER) | payer MEDICARE ==
[2017-07-26 15:43] LABS: BASOPHILS % (AUTO) 0.3 %; EOSINOPHILS # (AUTO) 0.1 10^3/uL (0.0-0.7); EOSINOPHILS % (AUTO) 0.9 %; LYMPHOCYTES # (AUTO) 2.9 10^3/uL (1.5-3.5); LYMPHOCYTES % (AUTO) 24.5 %; MEAN CORPUSCULAR HEMOGLOBIN 26.1 pg (27.0-31.0); MEAN CORPUSCULAR HGB CONC 31.5 g/dL (32.0-36.0); MEAN CORPUSCULAR VOLUME 82.7 fL (81.0-99.0); MEAN PLATELET VOLUME 7.3 fL (7.9-10.8); MONOCYTES # (AUTO) 0.8 10^3/uL (0.0-1.0); NEUTROPHILS % (AUTO) 67.3 %; PLT - PLATELET COUNT 457 10^3/uL (130-450); RED BLOOD COUNT 4.62 10^6/uL (4.20-5.40); RED CELL DISTRIBUTION WIDTH 20.8 % (12.0-15.0); WHITE BLOOD COUNT 11.9 x10^3/uL (4.8-10.8)
--- NOTE | 2017-07-26 15:49 | XRAY Report ---
EXAM: CHEST RADIOGRAPHY EXAM DATE: 07/26/2017 03:30 PM. CLINICAL HISTORY: Chest pain. COMPARISON: 07/07/2017. TECHNIQUE: 1 view. FINDINGS: Lungs/Pleura: No focal opacities evident. No pleural effusion. No pneumothorax. Mediastinum: Within exam limitations, the cardiomediastinal contour is normal. Other: None. IMPRESSION: No acute intrathoracic plain film abnormality. [facility] Referring Provider Line: [phone] SITE ID: [id number]
[2017-07-26 15:53] LABS: ALBUMIN 3.1 g/dL (3.2-5.5); BILIRUBIN,TOTAL 0.3 mg/dL (0.2-1.0); CALCIUM 8.2 mg/dL (8.5-10.3); CREATININE 0.7 mg/dL (0.4-1.0); TOTAL PROTEIN 6.1 g/dL (6.7-8.2)
[2017-07-26] MEDS ORDERED: SODIUM CHLORIDE 0.9% 1,000 ML IV ONE ×3 (16:03→18:24)
[2017-07-26] MEDS ORDERED: MAGNESIUM SULFATE 2 GRAM 2 GM/50 ML BAG IV ONE ×2 (16:03→19:02)
[2017-07-26] MEDS ORDERED: HYDROCORTISONE SUCCINATE 100 MG/2 ML VIAL IVP STA (16:03)
--- NOTE | 2017-07-26 16:06 | ED Physician Documentation ---
History of Present Illness - Stated complaint Stated Complaint: CP - Chief complaint Chief Complaint: Cardiac - History obtained from History obtained from: Patient, Family - History of Present Illness Timing: Today Pain level max: 10 Pain level now: 0 Improved by: time Worsened by: eating/drinking - Additonal information Additional information: Patient states that she has a long history of irritable bowel syndrome, rheumatoid arthritis and prednisone dependency. States that her last cortisol level was very low. They are concerned about steroid-induced [place]'s versus [place]'s. She has had diarrhea the past several days as well as dry heaving and unable to keep her medications down. Today was drinking chocolate milk and felt a sharp stabbing pain in the center of her chest. This resolved after approximately 20-30 minutes. Has never had pain like this before. Currently just feels tired and weak. No cardiac history. Review of Systems Ten Systems: 10 systems reviewed and negative Constitutional: denies: Fever, Chills Nose: denies: Rhinorrhea / runny nose, Congestion Throat: denies: Sore throat Cardiac: denies: Chest pain / pressure Respiratory: denies: Cough GI: reports: Nausea, Vomiting, Diarrhea. denies: Abdominal Pain, Hematemesis, Bloody / black stool : denies: Dysuria Skin: denies: Rash Musculoskeletal: denies: Neck pain, Back pain Neurologic: denies: Focal weakness, Numbness, Headache PD PAST MEDICAL HISTORY - Past Medical History Cardiovascular: Congestive heart failure, Hypertension Respiratory: Other Neuro: Other Endocrine/Autoimmune: Type 2 diabetes GI: GERD, Colon polyps, Chronic diarrhea, Other : Incontinence HEENT: Chronic vision loss, Chronic sinusitis Psych: Depression, Anxiety, Obsessive compulsive disorder Musculoskeletal: Osteoarthritis Derm: Other - Past Surgical History Past Surgical History: Yes General: Cholecystectomy, Appendectomy, Bowel surgery, Other Ortho: Knee replacement /CELERY WRAPPER: 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, Oophrectomy Cardiovascular: Cardiac catheterization HEENT: Tonsil/Adenoidectomy - Present Medications Home Medications: Ambulatory Orders Medication Instructions Recorded Confirmed Aspirin [Aspirin EC] 650 mg PO 0800,1200,1600,199905/29/13 07/26/17 FLUoxetine [PROzac] 20 mg PO DAILY 05/29/13 07/26/17 Metoprolol Tartrate 50 mg PO BID 05/29/13 07/26/17 Potassium Chloride 20 meq PO DAILY PRN 05/29/13 07/26/17 Esomeprazole Magnesium [Nexium] 40 mg PO QDAC 05/01/14 07/26/17 Nystatin 1 each TOP QID PRN 08/07/14 07/26/17 Cetirizine [ZyrTEC] 10 mg PO DAILY 03/03/17 07/26/17 Glimepiride 1 mg PO 1700 03/03/17 07/26/17 guaiFENesin [Mucinex] 1,200 mg PO BID 03/03/17 07/26/17 metFORMIN [Glucophage] 500 mg PO BIDWM 03/03/17 07/26/17 predniSONE [Prednisone] 30 mg PO DAILY 05/14/17 07/26/17 ALPRAZolam [Alprazolam] 0.25 mg PO QPM PRN 07/09/17 07/26/17 - Allergies Allergies/Adverse Reactions: Allergies Allergy/AdvReac Type Severity Reaction Status Date / Time droperidol [From Inapsine] Allergy Severe EPS Verified 07/09/17 14:16 ibuprofen [From Motrin] Allergy Severe Anaphylaxis Verified 07/09/17 14:16 peanut Allergy Severe Anaphylaxis Verified 07/09/17 14:16 shellfish derived Allergy Severe Anaphylaxis Verified 07/09/17 14:16 [id number] Reductase Allergy Severe muscle pain Verified 07/09/17 14:16 Inhibitor amoxicillin [Amoxicillin] Allergy Intermediate Hives Verified 07/09/17 14:16 cefazolin Allergy Intermediate Hives Verified 07/09/17 14:16 Cephalosporins Allergy Intermediate Hives Verified 07/09/17 14:16 clindamycin Allergy Intermediate Hives Verified 07/09/17 14:16 cyclobenzaprine Allergy Intermediate Hives/night Verified 07/09/17 14:16 [Cyclobenzaprine] castaneda erythromycin base Allergy Intermediate Hives Verified 07/09/17 14:16 [Erythromycin Base] potassium clavulanate * Allergy Intermediate Hives Verified 07/09/17 14:16 [From Augmentin] ketorolac tromethamine * Allergy Anaphylaxis Verified 07/09/17 14:16 [From Toradol] duloxetine AdvReac Severe Suicidal Verified 07/09/17 14:16 etanercept [From Enbrel] AdvReac Severe Nausea/vomm Verified 07/09/17 14:16 iting/cramp s methotrexate AdvReac Severe N/V/Cramps Verified 07/09/17 14:16 NSAIDS (Non-Steroidal AdvReac Severe N/V/Cramps Verified 07/09/17 14:16 Anti-Inflamma prochlorperazine AdvReac Severe EPS Verified 07/09/17 14:16 pseudoephedrine AdvReac Severe Tachycardia Verified 07/09/17 14:16 sumatriptan AdvReac Severe Widened QRS Verified 07/09/17 14:16 doxycycline AdvReac Intermediate Hives Verified 07/09/17 14:16 gabapentin AdvReac Intermediate Gait Verified 07/09/17 14:16 disturbance latex AdvReac Intermediate Sensitivity Verified 07/09/17 14:16 prochlorperazine edisylate * AdvReac Unknown Verified 07/09/17 14:16 [From Compazine] prochlorperazine maleate * AdvReac Unknown Verified 07/09/17 14:16 [From Compazine] Tape AdvReac Severe Blisters Uncoded 07/09/17 14:16 - Social History Does the pt smoke?: Yes Smoking Status: Current every day smoker Does the pt drink ETOH?: Yes Does the pt have substance abuse?: No - Immunizations Immunizations are current?: Yes - POLST Patient has POLST: Yes POLST Status: DNR PD ED PE NORMAL - Vitals Vital signs reviewed: Yes - General General: Alert and oriented X 3, No acute distress, Well developed/nourished, Other (cushingnoid) - HEENT HEENT: PERRL, Moist mucous membranes - Neck Neck: Supple, no meningeal sign - Cardiac Cardiac: RRR - Respiratory Respiratory: No respiratory distress, Clear bilaterally - Abdomen Abdomen: Soft, Non tender, Non distended - Back Back: No spinal TTP - Derm Derm: Warm and dry, No rash - Extremities Extremities: No calf tenderness / cord - Neuro Neuro: Alert and oriented X 3 - Psych Psych: Normal mood, Normal affect Results - Vitals Vitals: Vital Signs - 24 hr 07/26/17 07/26/17 07/26/17 14:54 17:12 19:13 Temperature 36.5 C Heart Rate 75 67 84 Respiratory 18 20 16 Rate Blood Pressure 143/104 H 114/66 108/91 H O2 Saturation 97 98 96 07/26/17 07/26/17 07/26/17 19:53 20:09 20:30 Temperature 36.2 C L 36.4 C L Heart Rate 77 86 77 Respiratory 21 25 H 20 Rate Blood Pressure 145/102 H 132/75 H 108/67 O2 Saturation 95 97 97 Oxygen O2 Source [] Room air O2 Source Room air - EKG (time done) 1454 Rate: Rate (enter#) (75) Rhythm: NSR [place]: Normal Intervals: Normal [place] QRS: Normal Ischemia: Non specific changes - Labs Labs: Laboratory Tests 07/26/17 07/26/17 07/26/17 15:30 15:30 15:30 WBC 11.9 H RBC 4.62 Hgb 12.0 Hct 38.2 MCV 82.7 MCH 26.1 L MCHC 31.5 L RDW 20.8 H Plt Count 457 H MPV 7.3 L Neut # 8.0 H Lymph # 2.9 [place] # 0.8 Eos # 0.1 Baso # 0.0 Absolute Nucleated RBC 0.00 Nucleated RBC % 0.0 Manual Slide Review Indicated Platelet Estimate INCREASED (>450,000) Platelet Morphology NORMAL APPEARANCE RBC Morph Micro Appear 1+ ANISOCYTOSIS Sodium 141 Potassium 2.6 L Chloride 101 Carbon Dioxide 25 Anion Gap 15.0 H BUN 18 Creatinine 0.7 Estimated GFR (MDRD) 85 L Glucose 150 H Calcium 8.2 L Phosphorus Magnesium Total Bilirubin 0.3 AST 21 ALT 16 Alkaline Phosphatase 59 Troponin I < 0.04 Total Protein 6.1 L Albumin 3.1 L Globulin 3.0 Albumin/Globulin Ratio 1.0 Lipase 77 H 07/26/17 15:30 WBC RBC Hgb Hct MCV MCH MCHC RDW Plt Count MPV Neut # Lymph # [place] # Eos # Baso # Absolute Nucleated RBC Nucleated RBC % Manual Slide Review Platelet Estimate Platelet Morphology RBC Morph Micro Appear Sodium Potassium Chloride Carbon Dioxide Anion Gap BUN Creatinine Estimated GFR (MDRD) Glucose Calcium Phosphorus 4.0 Magnesium 0.4 L* Total Bilirubin AST ALT Alkaline Phosphatase Troponin I Total Protein Albumin Globulin Albumin/Globulin Ratio Lipase - Rads (name of study) cxr Radiology: Prelim report reviewed, EMP read contemporaneously, See rad report ( no acute abnormality.) PD MEDICAL DECISION MAKING - ED course Complexity details: reviewed old records, reviewed results, re-evaluated patient , considered differential, d/w patient ED course: Patient is a 62-year-old female with a long complicated medical history, she presents to the emergency department with 3 days of "dry heaving". Also diarrhea. Feels like her magnesium is low and had some epigastric pain. Symptoms have since resolved. Feels better after replacement of magnesium and potassium. Tolerating p.o. without difficulty. Also given a dose of Solu- Cortef for possible adrenal insufficiency. Doubt cardiac etiology of her chest pain. She doesn't want to be admitted at this time. Will follow up closely with her PCP. Patient counseled regarding signs and symptoms for which I believe and urgent re-evaluation would be necessary. Patient with good understanding of and agreement to plan and is comfortable going home at this time This document was made in part using voice recognition software. While efforts are made to proofread this document, sound alike and grammatical errors may occur. Departure - Departure Disposition: 01 Home, Self Care Clinical Impression: Hypomagnesemia, Hypokalemia Diarrhea Qualifiers: Diarrhea type: unspecified type Qualified Code(s): R19.7 - Diarrhea, unspecified Chest pain Qualifiers: Chest pain type: unspecified Qualified Code(s): R07.9 - Chest pain, unspecified Vomiting Qualifiers: Vomiting type: unspecified Vomiting Intractability: non-intractable Nausea presence: with nausea Qualified Code(s): R11.2 - Nausea with vomiting, unspecified Condition: Good Instructions: ED Diet Vomiting Diarrhea Follow-Up: GIRMA LOPEZ MD [Primary Care Provider] - Within 3 Days Comments: Return if you worsen. You should have your potassium and magnesium rechecked with your doctor within 3 days. They may want to add hydrocortisone to your home medications as well to see if this helps your adrenal suppression. Discharge Date/Time: 07/26/17 20:36
[2017-07-26 16:08] LABS: PLATELET ESTIMATE, MANUAL INCREASED (>450,000) (NORMAL); PLATELET MORPHOLOGY NORMAL APPEARANCE (NORMAL)
[2017-07-26 16:09] LABS: RBC MORPHOLOGY (MULTIPLE) 1+ ANISOCYTOSIS (NORMAL)
[2017-07-26 16:27] LABS: MAGNESIUM 0.4 mg/dL (1.7-2.8)
[2017-07-26] MEDS ORDERED: PROMETHAZINE INJ 25 MG in SODIUM CHLORIDE 0.9% 50 ML IV STA (17:04)
[2017-07-26] MEDS ORDERED: diphenhydrAMINE INJ 50 MG/ML VIAL IVP STA (19:02)
[2017-07-26] MEDS ORDERED: POTASSIUM BICARB 25 MEQ TABLET PO STA (19:02)
[2017-07-26] MEDS ORDERED: HYDROcod/ACETAM 5/325 MG TABLET PO STA (19:36)
[2017-07-26 20:36] VITALS: BP 108/67
== END 2017-07-26 20:36 | disposition home or self-care (01) ==
LOC: EDUNIT# → ED 14:49
DX: E83.42 Hypomagnesemia (principal); E87.6 Hypokalemia; R19.7 Diarrhea, unspecified; R07.9 Chest pain, unspecified; R11.2 Nausea with vomiting, unspecified; R94.31 Abnormal electrocardiogram [ECG] [EKG]; I11.0 Hypertensive heart disease with heart failure; I50.9 Heart failure, unspecified; E11.9 Type 2 diabetes mellitus without complications; Z79.4 Long term (current) use of insulin; Z96.659 Presence of unspecified artificial knee joint
CPT/HCPCS: 36415; 71045; 80053; 83690; 83735; 84100; 84484; 85025; 93005; 96365; 96367; 96375; 96376; 99284; 99285; A9270; J7040

== ENCOUNTER 2017-07-28 10:13 | Outpatient (CLI) | payer MEDICARE | END 2017-07-28 10:14 | disposition critical access hospital (66) | LOC: EMS 10:13 | PROVIDERS: ATTEND Surgery | DX: R19.7 Diarrhea, unspecified (principal); R53.1 Weakness | CPT/HCPCS: A0425; A0429 ==

== ENCOUNTER 2017-07-28 10:26 | Emergency (ER) | payer MEDICARE ==
--- NOTE | 2017-07-28 10:33 | ED Physician Documentation ---
History of Present Illness - Stated complaint Stated Complaint: BOWEL ISSUES - Additonal information Additional information: hx from pt 62 female states long standing GI issues s/p appy lei hyst ooph SBO laparotomies noreen graf has had numerous extensive GI worlkups at [facility] [employer] includung imaging scopes etc and no cause for her chroni diarrhea has been found due to severe diarrhea she becomee volume depleted and gets low mag her PMD is trying to arrange for to be able to go to [facility] [place] for IVF and lyte replacement in these cases but not established yet diarrhea s blood and weakness today also notes ab pain which is unusual for her Review of Systems Constitutional: denies: Fever, Chills Cardiac: denies: Chest pain / pressure Respiratory: denies: Dyspnea GI: reports: Abdominal Pain, Diarrhea. denies: Bloody / black stool : reports: 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 Endocrine: denies: Easy bruising / bleeding Immunocompromised: denies: Immunocompromised PD PAST MEDICAL HISTORY - Past Medical History Cardiovascular: Congestive heart failure, Hypertension Respiratory: Other Neuro: Other Endocrine/Autoimmune: Type 2 diabetes GI: GERD, Colon polyps, Chronic diarrhea, Other : Incontinence HEENT: Chronic vision loss, Chronic sinusitis Psych: Depression, Anxiety, Obsessive compulsive disorder Musculoskeletal: Osteoarthritis Derm: Other - Past Surgical History Past Surgical History: Yes General: Cholecystectomy, Appendectomy, Bowel surgery, Other Ortho: Knee replacement /[employer]: 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, Oophrectomy Cardiovascular: Cardiac catheterization HEENT: Tonsil/Adenoidectomy - Present Medications Home Medications: Ambulatory Orders Medication Instructions Recorded Confirmed Aspirin [Aspirin EC] 650 mg PO 0800,1200,1600,2000 05/29/13 07/26/17 FLUoxetine [PROzac] 20 mg PO DAILY 05/29/13 07/26/17 Metoprolol Tartrate 50 mg PO BID 05/29/13 07/26/17 Potassium Chloride 20 meq PO DAILY PRN 05/29/13 07/26/17 Esomeprazole Magnesium [Nexium] 40 mg PO QDAC 05/01/14 07/26/17 Nystatin 1 each TOP QID PRN 08/07/14 07/26/17 Cetirizine [ZyrTEC] 10 mg PO DAILY 03/03/17 07/26/17 Glimepiride 1 mg PO 1700 03/03/17 07/26/17 guaiFENesin [Mucinex] 1,200 mg PO BID 03/03/17 07/26/17 metFORMIN [Glucophage] 500 mg PO BIDWM 03/03/17 07/26/17 predniSONE [Prednisone] 30 mg PO DAILY 05/14/17 07/26/17 ALPRAZolam [Alprazolam] 0.25 mg PO QPM PRN 07/09/17 07/26/17 - Allergies Allergies/Adverse Reactions: Allergies Allergy/AdvReac Type Severity Reaction Status Date / Time droperidol [From Inapsine] Allergy Severe EPS Verified 07/09/17 14:16 ibuprofen [From Motrin] Allergy Severe Anaphylaxis Verified 07/09/17 14:16 peanut Allergy Severe Anaphylaxis Verified 07/09/17 14:16 shellfish derived Allergy Severe Anaphylaxis Verified 07/09/17 14:16 Hdklumo-Umo-Nip Reductase Allergy Severe muscle pain Verified 07/09/17 14:16 Inhibitor amoxicillin [Amoxicillin] Allergy Intermediate Hives Verified 07/09/17 14:16 cefazolin Allergy Intermediate Hives Verified 07/09/17 14:16 Cephalosporins Allergy Intermediate Hives Verified 07/09/17 14:16 clindamycin Allergy Intermediate Hives Verified 07/09/17 14:16 cyclobenzaprine Allergy Intermediate Hives/night Verified 07/09/17 14:16 [Cyclobenzaprine] castaneda erythromycin base Allergy Intermediate Hives Verified 07/09/17 14:16 [Erythromycin Base] potassium clavulanate * Allergy Intermediate Hives Verified 07/09/17 14:16 [From Augmentin] ketorolac tromethamine * Allergy Anaphylaxis Verified 07/09/17 14:16 [From Toradol] duloxetine AdvReac Severe Suicidal Verified 07/09/17 14:16 etanercept [From Enbrel] AdvReac Severe Nausea/vomm Verified 07/28/17 10:35 iting/cramp s methotrexate AdvReac Severe N/V/Cramps Verified 07/28/17 10:35 NSAIDS (Non-Steroidal AdvReac Severe N/V/Cramps Verified 07/28/17 10:35 Anti-Inflamma prochlorperazine AdvReac Severe EPS Verified 07/28/17 10:35 pseudoephedrine AdvReac Severe Tachycardia Verified 07/28/17 10:35 sumatriptan AdvReac Severe Widened QRS Verified 07/28/17 10:35 doxycycline AdvReac Intermediate Hives Verified 07/28/17 10:35 gabapentin AdvReac Intermediate Gait Verified 07/28/17 10:35 disturbance latex AdvReac Intermediate Sensitivity Verified 07/28/17 10:35 prochlorperazine edisylate * AdvReac Unknown Verified 07/28/17 10:35 [From Compazine] prochlorperazine maleate * AdvReac Unknown Verified 07/28/17 10:35 [From Compazine] Tape AdvReac Severe Blisters Uncoded 07/28/17 10:35 - Social History Does the pt smoke?: Yes Smoking Status: Current every day smoker Does the pt drink ETOH?: Yes Does the pt have substance abuse?: No - Immunizations Immunizations are current?: Yes - POLST Patient has POLST: Yes POLST Status: DNR PD ED PE NORMAL - Vitals Vital signs reviewed: Yes - Cardiac Cardiac: RRR - Respiratory Respiratory: No respiratory distress, Clear bilaterally - Abdomen Abdomen: Soft, Non tender - Derm Derm: Normal color - Neuro Neuro: Alert and oriented X 3 Results - Vitals Vitals: Vital Signs - 24 hr 07/28/17 10:32 Temperature 36.8 C Heart Rate 74 Respiratory 16 Rate Blood Pressure 136/84 H O2 Saturation 99 Oxygen O2 Source [] Room air O2 Source Room air - Labs Labs: Microbiology 07/28/17 10:47 Clostridium difficile (PCR) - Final Stool 07/28/17 10:47 Campylobacter Antigen Assay - Final Stool Laboratory Tests 07/28/17 07/28/17 10:48 10:48 WBC 11.6 H RBC 4.47 Hgb 12.0 Hct 37.1 MCV 83.2 MCH 26.9 L MCHC 32.4 RDW 21.0 H Plt Count 451 H MPV 7.1 L Neut # 8.1 H Lymph # 2.4 [place] # 0.9 Eos # 0.1 Baso # 0.1 Absolute Nucleated RBC 0.00 Nucleated RBC % 0.0 Sodium 141 Potassium 3.0 L Chloride 102 Carbon Dioxide 27 Anion Gap 12.0 BUN 17 Creatinine 0.6 Estimated GFR (MDRD) 102 Glucose 123 H Calcium 8.2 L Phosphorus 2.5 Magnesium 1.1 L - Rads (name of study) CT AP Radiology: Prelim report reviewed, See rad report (renal stone, fat filed periumbilical hernia, diverticulosis, chronic findings) PD MEDICAL DECISION MAKING - ED course ED course: CT no acute given IVF and calcium mag K repleted will dc Departure - Departure Disposition: 01 Home, Self Care Clinical Impression: Chronic diarrhea, Hypokalemia, Hypomagnesemia Condition: Good Instructions: Hypokalemia Dc, Hypomagnesemia Dc Follow-Up: GIRMA LOPEZ MD [Primary Care Provider] - Comments: The CT scan did not show any acute problems to explain the right sided pain - you have diverticulosis, a left kidney stone, and a ventral hernia near your umbilicus without any trapped bowel You were given IV fluids and your abnormal magnesium calcium and potassium were replaced.Follow up with your PMD later this week for a recheck Return if worse
[2017-07-28] MEDS ORDERED: SODIUM CHLORIDE 0.9% 1,000 ML IV ONE ×2 (10:34→10:35)
[2017-07-28 10:59] LABS: BASOPHILS # (AUTO) 0.1 10^3/uL (0.0-0.1); BASOPHILS % (AUTO) 1.2 %; EOSINOPHILS # (AUTO) 0.1 10^3/uL (0.0-0.7); EOSINOPHILS % (AUTO) 1.2 %; LYMPHOCYTES # (AUTO) 2.4 10^3/uL (1.5-3.5); LYMPHOCYTES % (AUTO) 20.4 %; MEAN CORPUSCULAR HEMOGLOBIN 26.9 pg (27.0-31.0); MEAN CORPUSCULAR HGB CONC 32.4 g/dL (32.0-36.0); MEAN CORPUSCULAR VOLUME 83.2 fL (81.0-99.0); MEAN PLATELET VOLUME 7.1 fL (7.9-10.8); MONOCYTES # (AUTO) 0.9 10^3/uL (0.0-1.0); MONOCYTES % (AUTO) 7.6 %; NEUTROPHILS # (AUTO) 8.1 10^3/uL (1.5-6.6); NEUTROPHILS % (AUTO) 69.6 %; PLT - PLATELET COUNT 451 10^3/uL (130-450); RED BLOOD COUNT 4.47 10^6/uL (4.20-5.40); WHITE BLOOD COUNT 11.6 x10^3/uL (4.8-10.8)
[2017-07-28 11:09] LABS: CALCIUM 8.2 mg/dL (8.5-10.3); CREATININE 0.6 mg/dL (0.4-1.0); MAGNESIUM 1.1 mg/dL (1.7-2.8); PHOSPHORUS 2.5 mg/dL (2.5-4.6)
--- NOTE | 2017-07-28 13:44 | CT Preliminary Report ---
Exam: CT ABDOMEN/PELVIS W/O IMPRESSION: 1. Left nephrolithiasis. 2. 6.0 x 4.4 cm fat filled non-entrapped left periumbilical hernia. 3. Colonic diverticulosis. 4. Stable, otherwise exam. [facility] SITE ID: [id number]
--- NOTE | 2017-07-28 13:49 | CT Report ---
EXAM: CT ABDOMEN AND PELVIS EXAM DATE: 07/28/2017 12:38 PM. CLINICAL HISTORY: Right-sided abdominal pain, status post appendectomy, cholecystectomy, hysterectomy and oophorectomy. Syncope, head trauma, headache. COMPARISONS: 02/05/2017. TECHNIQUE: Routine helical CT imaging was performed through the abdomen and pelvis. IV contrast: None . Enteric contrast: No. Reconstructions: Coronal and sagittal. In accordance with CT protocol optimization, one or more of the following dose reduction techniques w ere utilized for this exam: automated exposure control, adjustment of mA and/or KV based on patient s ize, or use of iterative reconstructive technique. FINDINGS: Lung Bases: Unremarkable. Liver: Calcified granuloma. Gallbladder/Bile Ducts: Cholecystectomy. No biliary duct dilatation. Spleen: Normal. Pancreas: Normal. Adrenal Glands: Normal. Kidneys: Right kidney and right ureter are normal. 1 mm stone in a superior left renal calyx. Left kidney and left ureter otherwise normal. Peritoneal Cavity/Bowel: Stable benign 2.5 x 2.0 cm calcified density superior right omentum. Diverticula off the colon. Large and small bowel of normal caliber. No inflammatory changes, free fluid, free air nor adenopathy. Appendectomy. Mature postoperative changes prior umbilical hernia repair. Stable fat-filled 6.0 x 4.4 cm left infraumbilical ventral hernia, 2 cm neck, without entrapment. Pelvic Organs: 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. No free fluid, bladder calculi, nor adnexal mass lesions. Vasculature: No aneurysms or other significant abnormality. Bones: Multilevel marked degenerative changes. Marked central spinal canal stenosis at L4-L5. Other: None. IMPRESSION: 1. Left nephrolithiasis. 2. 6.0 x 4.4 cm fat-filled non-entrapped left periumbilical hernia. 3. Colonic diverticulosis. 4. Stable, otherwise unremarkable exam. [facility] Referring Provider Line: [phone] SITE ID: [id number]
[2017-07-28] MEDS ORDERED: MAGNESIUM SULFATE 2 GRAM 2 GM/50 ML BAG IV ONE (13:59)
[2017-07-28] MEDS ORDERED: POTASSIUM CHLORIDE 20 MEQ TABLET PO STA (13:59)
[2017-07-28] MEDS ORDERED: CALCIUM CARBONATE CHEW 500 MG TABLET PO STA (14:01)
[2017-07-28 15:38] VITALS: BP 124/74
== END 2017-07-28 15:49 | disposition home or self-care (01) ==
LOC: EDBD → EDUNIT# → ED 10:26
DX: K52.9 Noninfective gastroenteritis and colitis, unspecified (principal); E87.6 Hypokalemia; E83.42 Hypomagnesemia; N20.0 Calculus of kidney; Z87.442 Personal history of urinary calculi; K42.9 Umbilical hernia without obstruction or gangrene; I11.0 Hypertensive heart disease with heart failure; I50.9 Heart failure, unspecified; E11.9 Type 2 diabetes mellitus without complications; Z79.84 Long term (current) use of oral hypoglycemic drugs; K21.9 Gastro-esophageal reflux disease without esophagitis; M19.90 Unspecified osteoarthritis, unspecified site; Z86.010 Personal history of colon polyps; F17.200 Nicotine dependence, unspecified, uncomplicated
CPT/HCPCS: 36415; 74176; 80048; 83735; 84100; 85025; 87045; 87046; 87493; 96374; 99283; 99284; A9270

== ENCOUNTER 2017-07-29 13:53 | Outpatient (CLI) | payer MEDICARE ==
[2017-07-29 14:12] LABS: VBG PH 7.383 (7.31-7.41)
[2017-07-29 14:17] LABS: BASOPHILS # (AUTO) 0.2 10^3/uL (0.0-0.1); EOSINOPHILS # (AUTO) 0.1 10^3/uL (0.0-0.7); EOSINOPHILS % (AUTO) 0.4 %; HGB - HEMOGLOBIN 11.7 g/dL (12.0-16.0); LYMPHOCYTES # (AUTO) 1.5 10^3/uL (1.5-3.5); LYMPHOCYTES % (AUTO) 9.6 %; MEAN CORPUSCULAR HEMOGLOBIN 26.5 pg (27.0-31.0); MEAN CORPUSCULAR HGB CONC 31.9 g/dL (32.0-36.0); MEAN CORPUSCULAR VOLUME 83.1 fL (81.0-99.0); MEAN PLATELET VOLUME 7.3 fL (7.9-10.8); MONOCYTES # (AUTO) 0.6 10^3/uL (0.0-1.0); MONOCYTES % (AUTO) 3.8 %; NEUTROPHILS # (AUTO) 13.5 10^3/uL (1.5-6.6); NEUTROPHILS % (AUTO) 85.2 %; PLT - PLATELET COUNT 444 10^3/uL (130-450); RED BLOOD COUNT 4.41 10^6/uL (4.20-5.40); RED CELL DISTRIBUTION WIDTH 20.9 % (12.0-15.0); WHITE BLOOD COUNT 15.9 x10^3/uL (4.8-10.8)
[2017-07-29 14:21] LABS: MAGNESIUM 1.3 mg/dL (1.7-2.8)
== END 2017-07-29 13:54 | disposition home or self-care (01) ==
LOC: LAB 13:53
PROVIDERS: ATTEND Internal Medicine
DX: E11.9 Type 2 diabetes mellitus without complications (principal); E87.8 Other disorders of electrolyte and fluid balance, not elsewhere classified
CPT/HCPCS: 36415; 80051; 81599; 82330; 83735; 85025; 86617; 86618; 87040

== ENCOUNTER 2017-08-06 09:57 | Outpatient (CLI) | payer MEDICARE ==
[2017-08-06 10:30] LABS: BASOPHILS # (AUTO) 0.1 10^3/uL (0.0-0.1); BASOPHILS % (AUTO) 0.6 %; EOSINOPHILS # (AUTO) 0.1 10^3/uL (0.0-0.7); EOSINOPHILS % (AUTO) 0.6 %; LYMPHOCYTES # (AUTO) 2.3 10^3/uL (1.5-3.5); LYMPHOCYTES % (AUTO) 17.2 %; MEAN CORPUSCULAR HGB CONC 32.1 g/dL (32.0-36.0); MEAN CORPUSCULAR VOLUME 80.9 fL (81.0-99.0); MEAN PLATELET VOLUME 7.2 fL (7.9-10.8); MONOCYTES # (AUTO) 0.8 10^3/uL (0.0-1.0); MONOCYTES % (AUTO) 5.7 %; NEUTROPHILS # (AUTO) 10.2 10^3/uL (1.5-6.6); NEUTROPHILS % (AUTO) 75.9 %; PLT - PLATELET COUNT 443 10^3/uL (130-450); RED BLOOD COUNT 4.61 10^6/uL (4.20-5.40); RED CELL DISTRIBUTION WIDTH 21.6 % (12.0-15.0); WHITE BLOOD COUNT 13.4 x10^3/uL (4.8-10.8)
[2017-08-06 11:10] LABS: PLATELET ESTIMATE, MANUAL NORMAL (130-450,000) (NORMAL); PLATELET MORPHOLOGY NORMAL APPEARANCE (NORMAL)
[2017-08-06 11:16] LABS: ALBUMIN 3.5 g/dL (3.2-5.5); CALCIUM 9.3 mg/dL (8.5-10.3); CREATININE 0.5 mg/dL (0.4-1.0); CRP - C-REACTIVE PROTEIN 3.9 mg/dL (0-1.0); PHOSPHORUS 3.8 mg/dL (2.5-4.6)
[2017-08-06 14:17] LABS: MAGNESIUM 0.7 mg/dL (1.7-2.8)
== END 2017-08-06 09:58 | disposition home or self-care (01) ==
LOC: LAB 09:57
PROVIDERS: ATTEND Internal Medicine
DX: E11.9 Type 2 diabetes mellitus without complications (principal); G90.2 Horner's syndrome; G50.8 Other disorders of trigeminal nerve; K76.0 Fatty (change of) liver, not elsewhere classified; E87.8 Other disorders of electrolyte and fluid balance, not elsewhere classified; R89.1 Abnormal level of hormones in specimens from other organs, systems and tissues; D59.9 Acquired hemolytic anemia, unspecified; E27.40 Unspecified adrenocortical insufficiency
CPT/HCPCS: 36415; 80069; 82533; 82728; 83540; 83735; 84075; 84466; 85025; 86140

== ENCOUNTER 2017-08-12 13:11 | Outpatient (CLI) | payer MEDICARE ==
[2017-08-12 14:01] LABS: ALBUMIN 3.7 g/dL (3.2-5.5); ALBUMIN/GLOBULIN RATIO 1.3 (1.0-2.2); BILIRUBIN,TOTAL 0.4 mg/dL (0.2-1.0); CALCIUM 9.7 mg/dL (8.5-10.3); CREATININE 0.6 mg/dL (0.4-1.0); MAGNESIUM 1.1 mg/dL (1.7-2.8); TOTAL PROTEIN 6.6 g/dL (6.7-8.2)
== END 2017-08-12 13:12 | disposition home or self-care (01) ==
LOC: LAB 13:11
PROVIDERS: ATTEND Internal Medicine
DX: E11.9 Type 2 diabetes mellitus without complications (principal); E83.42 Hypomagnesemia; E86.0 Dehydration; I77.6 Arteritis, unspecified
CPT/HCPCS: 80053; 83735; 86140

== ENCOUNTER 2017-08-17 08:18 | Outpatient (CLI) | payer MEDICARE ==
[2017-08-17 08:49] LABS: BASOPHILS # (AUTO) 0.1 10^3/uL (0.0-0.1); BASOPHILS % (AUTO) 0.8 %; EOSINOPHILS # (AUTO) 0.1 10^3/uL (0.0-0.7); EOSINOPHILS % (AUTO) 1.1 %; HGB - HEMOGLOBIN 12.6 g/dL (12.0-16.0); LYMPHOCYTES # (AUTO) 2.5 10^3/uL (1.5-3.5); LYMPHOCYTES % (AUTO) 23.8 %; MEAN CORPUSCULAR HEMOGLOBIN 25.5 pg (27.0-31.0); MEAN CORPUSCULAR HGB CONC 31.8 g/dL (32.0-36.0); MEAN CORPUSCULAR VOLUME 80.2 fL (81.0-99.0); MEAN PLATELET VOLUME 7.1 fL (7.9-10.8); MONOCYTES # (AUTO) 0.8 10^3/uL (0.0-1.0); MONOCYTES % (AUTO) 7.2 %; NEUTROPHILS # (AUTO) 7.2 10^3/uL (1.5-6.6); NEUTROPHILS % (AUTO) 67.1 %; PLT - PLATELET COUNT 465 10^3/uL (130-450); RED BLOOD COUNT 4.94 10^6/uL (4.20-5.40); WHITE BLOOD COUNT 10.7 x10^3/uL (4.8-10.8)
[2017-08-17 09:57] LABS: PLATELET ESTIMATE, MANUAL INCREASED (>450,000) (NORMAL); PLATELET MORPHOLOGY NORMAL APPEARANCE (NORMAL)
[2017-08-17 10:01] LABS: ALBUMIN/GLOBULIN RATIO 1.1 (1.0-2.2); BILIRUBIN,TOTAL 0.6 mg/dL (0.2-1.0); CREATININE 0.8 mg/dL (0.4-1.0); TOTAL PROTEIN 7.7 g/dL (6.7-8.2)
[2017-08-17] MEDS ORDERED: MAGNESIUM SULFATE 2 GRAM 2 GM/50 ML BAG IV SCH (11:30)
== END 2017-08-17 08:19 | disposition home or self-care (01) ==
LOC: LAB 08:18
PROVIDERS: ATTEND Internal Medicine
DX: E87.8 Other disorders of electrolyte and fluid balance, not elsewhere classified (principal); A69.9 Spirochetal infection, unspecified; I50.9 Heart failure, unspecified
CPT/HCPCS: 36415; 80053; 83735; 83880; 85025

== ENCOUNTER 2017-10-30 13:33 | Outpatient (CLI) | payer MEDICARE | END 2017-10-30 13:34 | disposition critical access hospital (66) | LOC: EMS 13:33 | PROVIDERS: ATTEND Surgery | DX: R06.02 Shortness of breath (principal); R53.1 Weakness; R53.83 Other fatigue; R07.89 Other chest pain | CPT/HCPCS: A0425; A0429 ==

== ENCOUNTER 2017-10-30 13:48 | Emergency (ER) | payer MEDICARE ==
--- NOTE | 2017-10-30 15:02 | ED Physician Documentation ---
PD HPI DYSPNEA - Stated complaint Stated Complaint: CP/SOA - Chief complaint Chief Complaint: Resp - History obtained from History obtained from: Patient, EMS - History of Present Illness Timing - onset: Other (4 days of diarrhea (worse than normal with chronic IBS) with increasing/progressive dyspnea and productive cough with upper chest pain starting today. Poor sleep due to dyspnea/wheezing. Cough often dry but sometimes brown. She had a dental abscess in April and subsequent to that developed bacteremia with an atypical spirochete. For that she is on 10 days of levofloxacin every month, she started it on Thursday the day before the diarrhea started. She has never had C. difficile before. She is on chronic steroids for optic neuritis, she has been tapering down and currently on 10 mg. H/O CAD, DMII, CHF, [place], HTN, anxiety/OCD, depression.) Review of Systems Ten Systems: 10 systems reviewed and negative Constitutional: reports: Chills, Fatigue. denies: Fever Cardiac: reports: Chest pain / pressure Respiratory: reports: Dyspnea, Cough Skin: denies: Rash, Lesions PD PAST MEDICAL HISTORY - Past Medical History Cardiovascular: Congestive heart failure, Hypertension Respiratory: Other Endocrine/Autoimmune: Type 2 diabetes GI: GERD, Colon polyps, Chronic diarrhea, Other : Incontinence HEENT: Chronic vision loss, Chronic sinusitis Psych: Depression, Anxiety, Obsessive compulsive disorder Musculoskeletal: Osteoarthritis Derm: Other - Past Surgical History Past Surgical History: Yes General: Cholecystectomy, Appendectomy, Bowel surgery, Other Ortho: Knee replacement /[employer]: 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, Oophrectomy Cardiovascular: Cardiac catheterization HEENT: Tonsil/Adenoidectomy - Present Medications Home Medications: Ambulatory Orders Medication Instructions Recorded Confirmed Aspirin [Aspirin EC] 650 mg PO 0800,1200,1600,199905/29/13 09/21/17 FLUoxetine [PROzac] 20 mg PO DAILY 05/29/13 09/21/17 Metoprolol Tartrate 50 mg PO BID 05/29/13 09/21/17 Potassium Chloride 20 meq PO DAILY PRN 05/29/13 09/21/17 Esomeprazole Magnesium [Nexium] 40 mg PO QDAC 05/01/14 09/21/17 Nystatin 1 each TOP QID PRN 08/07/14 09/21/17 Cetirizine [ZyrTEC] 10 mg PO DAILY 03/03/17 09/21/17 Glimepiride 1 mg PO 1700 03/03/17 09/21/17 guaiFENesin [Mucinex] 1,200 mg PO BID 03/03/17 09/21/17 metFORMIN [Glucophage] 500 mg PO BIDWM 03/03/17 09/21/17 predniSONE [Prednisone] 30 mg PO DAILY 05/14/17 09/21/17 Levofloxacin [Levaquin] 500 mg PO DAILY 09/21/17 09/21/17 Albuterol Sulfate [Proventil Hfa 1 - 2 puffs IH Q4H PRN #1 10/30/17 Inhaler] hfa.aer.ad HYDROcod/ACETAM 5/325 [[place] 5/325] 1 - 2 ea PO Q6H PRN #7 tablet 10/30/17 predniSONE [Deltasone] 60 mg PO DAILY 5 Days tablet 10/30/17 - Allergies Allergies/Adverse Reactions: Allergies Allergy/AdvReac Type Severity Reaction Status Date / Time droperidol [From Inapsine] Allergy Severe EPS Verified 07/09/17 14:16 ibuprofen [From Motrin] Allergy Severe Anaphylaxis Verified 07/09/17 14:16 peanut Allergy Severe Anaphylaxis Verified 07/09/17 14:16 shellfish derived Allergy Severe Anaphylaxis Verified 07/09/17 14:16 Gxfknxz-Fog-Cmw Reductase Allergy Severe muscle pain Verified 07/09/17 14:16 Inhibitor amoxicillin [Amoxicillin] Allergy Intermediate Hives Verified 07/09/17 14:16 cefazolin Allergy Intermediate Hives Verified 07/09/17 14:16 Cephalosporins Allergy Intermediate Hives Verified 07/09/17 14:16 clindamycin Allergy Intermediate Hives Verified 07/09/17 14:16 cyclobenzaprine Allergy Intermediate Hives/night Verified 07/09/17 14:16 [Cyclobenzaprine] castaneda erythromycin base Allergy Intermediate Hives Verified 07/09/17 14:16 [Erythromycin Base] potassium clavulanate * Allergy Intermediate Hives Verified 07/09/17 14:16 [From Augmentin] ketorolac tromethamine * Allergy Anaphylaxis Verified 07/09/17 14:16 [From Toradol] duloxetine AdvReac Severe Suicidal Verified 07/09/17 14:16 etanercept [From Enbrel] AdvReac Severe Nausea/vomm Verified 10/30/17 13:55 iting/cramp s methotrexate AdvReac Severe N/V/Cramps Verified 10/30/17 13:55 NSAIDS (Non-Steroidal AdvReac Severe N/V/Cramps Verified 10/30/17 13:55 Anti-Inflamma prochlorperazine AdvReac Severe EPS Verified 10/30/17 13:55 pseudoephedrine AdvReac Severe Tachycardia Verified 10/30/17 13:55 sumatriptan AdvReac Severe Widened QRS Verified 10/30/17 13:55 doxycycline AdvReac Intermediate Hives Verified 10/30/17 13:55 gabapentin AdvReac Intermediate Gait Verified 10/30/17 13:55 disturbance latex AdvReac Intermediate Sensitivity Verified 10/30/17 13:55 prochlorperazine edisylate * AdvReac Unknown Verified 10/30/17 13:55 [From Compazine] prochlorperazine maleate * AdvReac Unknown Verified 10/30/17 13:55 [From Compazine] promethazine [From Phenergan] AdvReac Hallucinati Verified 10/30/17 13:55 ons Tape AdvReac Severe Blisters Uncoded 10/30/17 13:55 - Social History Does the pt smoke?: Yes Smoking Status: Current every day smoker Does the pt drink ETOH?: Yes Does the pt have substance abuse?: No - Immunizations Immunizations are current?: Yes - POLST Patient has POLST: Yes POLST Status: DNR PD ED PE NORMAL - Vitals Vital signs reviewed: Yes - General General: Alert and oriented X 3, No acute distress - HEENT HEENT: Pharynx benign - Neck Neck: Supple, no meningeal sign, No bony TTP - Cardiac Cardiac: RRR, No murmur - Respiratory Respiratory: No respiratory distress, Other (wheezes throughout) - Abdomen Abdomen: Normal bowel sounds, Soft, Non tender - Back Back: No CVA TTP, No spinal TTP - Derm Derm: Other (Chronic ulcer on Right knee) - Extremities Extremities: Other (2-3+ peripheral symmetric BLE edema.) - Neuro Neuro: Alert and oriented X 3, Normal speech - Psych Psych: Normal mood, Normal affect Results - Vitals Vitals: Vital Signs - 24 hr 10/30/17 10/30/17 10/30/17 13:51 16:00 16:01 Temperature 36.4 C L 35.9 C L Heart Rate 71 72 76 Respiratory 20 18 22 Rate Blood Pressure 143/74 H 146/84 H O2 Saturation 98 97 Oxygen O2 Source [] Room air O2 Source Room air - EKG (time done) 1401 Rate: Rate (enter#) (64) Rhythm: NSR (with PAC) [place]: Normal Intervals: Normal [place] QRS: Low voltage Ischemia: Non specific changes (flat t waves). No: ST elevation c/w ischemia Computer interpretation: Agree with computer - Labs Labs: Laboratory Tests 10/30/17 10/30/17 10/30/17 14:00 14:00 14:00 WBC 12.4 H RBC 4.98 Hgb 10.0 L Hct 33.0 L MCV 66.4 L MCH 20.0 L MCHC 30.2 L RDW 23.9 H Plt Count 512 H MPV 7.3 L Neut # 9.0 H Lymph # 2.3 [place] # 0.9 Eos # 0.2 Baso # 0.2 H Absolute Nucleated RBC 0.02 Nucleated RBC % 0.2 Manual Slide Review Indicated WBC Morphology NORMAL APPEARANCE Platelet Estimate INCREASED (>450,000) Platelet Morphology NORMAL APPEARANCE RBC Morph Micro Appear 1+ OVALOCYTES Sodium 133 L Potassium 3.9 Chloride 96 L Carbon Dioxide 26 Anion Gap 11.0 BUN 10 Creatinine 0.6 Estimated GFR (MDRD) 102 Glucose 100 Calcium 9.3 Magnesium 1.3 L Total Bilirubin 0.4 AST 21 ALT 12 Alkaline Phosphatase 91 Troponin I < 0.04 B-Natriuretic Peptide Total Protein 6.6 L Albumin 3.3 Globulin 3.3 Albumin/Globulin Ratio 1.0 Lipase 64 H Urine Color Urine Clarity Urine pH Ur Specific [place] Urine Protein Urine Glucose (UA) Urine Ketones Urine Occult Blood Urine Nitrite Urine Bilirubin Urine Urobilinogen Ur Leukocyte Esterase Ur Microscopic Review Urine Culture Comments 10/30/17 10/30/17 14:00 15:30 WBC RBC Hgb Hct MCV MCH MCHC RDW Plt Count MPV Neut # Lymph # [place] # Eos # Baso # Absolute Nucleated RBC Nucleated RBC % Manual Slide Review WBC Morphology Platelet Estimate Platelet Morphology RBC Morph Micro Appear Sodium Potassium Chloride Carbon Dioxide Anion Gap BUN Creatinine Estimated GFR (MDRD) Glucose Calcium Magnesium Total Bilirubin AST ALT Alkaline Phosphatase Troponin I B-Natriuretic Peptide 70 Total Protein Albumin Globulin Albumin/Globulin Ratio Lipase Urine Color YELLOW Urine Clarity CLEAR Urine pH 6.0 Ur Specific [place] <=1.005 Urine Protein NEGATIVE Urine Glucose (UA) NEGATIVE Urine Ketones NEGATIVE Urine Occult Blood NEGATIVE Urine Nitrite NEGATIVE Urine Bilirubin NEGATIVE Urine Urobilinogen 0.2 (NORMAL) Ur Leukocyte Esterase NEGATIVE Ur Microscopic Review NOT INDICATED Urine Culture Comments NOT INDICATED PD MEDICAL DECISION MAKING - ED course ED course: 62-year-old with complicated medical history who was tapering her steroids comes in with 4 days of cough, shortness of breath and wheezing. Diagnostics demonstrate mild hypomagnesemia which is a chronic issue for her and was repleted IV. She did not give a stool sample here, and she has been recently checked for C. difficile. Seems reasonable to treat her for bronchitis/COPD. She does not have a history of COPD per se but is at high risk given the long history of heavy tobacco use. She is on levofloxacin which is good coverage for this, and we will increase her steroids for a few days and then give her an inhaler. Departure - Departure Disposition: 01 Home, Self Care Clinical Impression: Reactive arthritis, Bronchitis Ulcer of leg, chronic, right Qualifiers: Non-pressure ulcer stage: unspecified non-pressure ulcer stage Qualified Code(s ): L97.919 - Non-pressure chronic ulcer of unspecified part of right lower leg with unspecified severity Condition: Good Record reviewed to determine appropriate education?: Yes Instructions: ED Bronchitis Asthmatic Prescriptions: Albuterol Sulfate [Proventil Hfa Inhaler] 1 - 2 puffs IH Q4H PRN #1 hfa.aer.ad PRN Reason: Cough HYDROcod/ACETAM 5/325 [[place] 5/325] 1 - 2 ea PO Q6H PRN #7 tablet PRN Reason: Pain predniSONE [Deltasone] 60 mg PO DAILY 5 Days tablet Comments: Call your doctor to arrange a follow-up appointment, make the next available appointment. In the interim, return anytime if worse or if new symptoms develop. Your blood pressure was elevated today on check into the emergency department. This does not mean that you have hypertension, it is a common phenomenon to come to the emergency department and have elevated blood pressure. I recommend that you see your primary care physician within the week to have it rechecked when you are feeling better.
[2017-10-30] MEDS ORDERED: FUROSEMIDE 40 MG/4 ML VIAL IVP STA (15:06)
[2017-10-30 15:20] LABS: BASOPHILS # (AUTO) 0.2 10^3/uL (0.0-0.1); BASOPHILS % (AUTO) 1.3 %; EOSINOPHILS # (AUTO) 0.2 10^3/uL (0.0-0.7); EOSINOPHILS % (AUTO) 1.3 %; LYMPHOCYTES # (AUTO) 2.3 10^3/uL (1.5-3.5); LYMPHOCYTES % (AUTO) 18.1 %; MEAN CORPUSCULAR HGB CONC 30.2 g/dL (32.0-36.0); MEAN CORPUSCULAR VOLUME 66.4 fL (81.0-99.0); MEAN PLATELET VOLUME 7.3 fL (7.9-10.8); MONOCYTES # (AUTO) 0.9 10^3/uL (0.0-1.0); MONOCYTES % (AUTO) 6.9 %; NEUTROPHILS % (AUTO) 72.4 %; PLT - PLATELET COUNT 512 10^3/uL (130-450); RED BLOOD COUNT 4.98 10^6/uL (4.20-5.40); RED CELL DISTRIBUTION WIDTH 23.9 % (12.0-15.0); WHITE BLOOD COUNT 12.4 x10^3/uL (4.8-10.8)
[2017-10-30 15:33] LABS: ALBUMIN 3.3 g/dL (3.2-5.5); BILIRUBIN,TOTAL 0.4 mg/dL (0.2-1.0); CREATININE 0.6 mg/dL (0.4-1.0); MAGNESIUM 1.3 mg/dL (1.7-2.8); TOTAL PROTEIN 6.6 g/dL (6.7-8.2)
[2017-10-30 15:41] LABS: CALCIUM 9.3 mg/dL (8.5-10.3)
[2017-10-30] MEDS ORDERED: ALBUTEROL NEB 2.5 MG/3 ML INH STA (15:41)
[2017-10-30 15:45] LABS: BILIRUBIN,URINE NEGATIVE (NEGATIVE); GLUCOSE, URINE (UA) NEGATIVE (NEGATIVE); KETONES,URINE (UA) NEGATIVE (NEGATIVE); LEUKOCYTE ESTERASE, URINE NEGATIVE (NEGATIVE); NITRITE,URINE NEGATIVE (NEGATIVE); OCCULT BLOOD,URINE NEGATIVE (NEGATIVE); PROTEIN,URINE NEGATIVE (NEGATIVE); UROBILINOGEN,URINE 0.2 (NORMAL) E.U./dL (NORMAL)
[2017-10-30 15:47] LABS: CLARITY,URINE CLEAR (CLEAR)
[2017-10-30 16:01] VITALS: BP 146/84
[2017-10-30 16:05] LABS: PLATELET ESTIMATE, MANUAL INCREASED (>450,000) (NORMAL); PLATELET MORPHOLOGY NORMAL APPEARANCE (NORMAL)
--- NOTE | 2017-10-30 16:10 | XRAY Report ---
EXAM: CHEST RADIOGRAPHY EXAM DATE: 10/30/2017 03:56 PM. CLINICAL HISTORY: Shortness of breath for 3 days, worse today. COMPARISON: 07/26/2017. TECHNIQUE: 2 views. FINDINGS: Lungs/Pleura: No focal opacities evident. No pleural effusion. No pneumothorax. Normal volumes. Mediastinum: Large heart. Other: No compression fractures. IMPRESSION: Cardiomegaly without signs of CHF or acute pulmonary abnormality. [facility] Referring Provider Line: [phone] SITE ID: [id number]
--- NOTE | 2017-10-30 16:10 | XRAY Preliminary Report ---
Exam: XR CHEST 2 VIEW X-RAY IMPRESSION: Cardiomegaly without signs of CHF or acute pulmonary abnormality. [facility] SITE ID: [id number]
[2017-10-30] MEDS ORDERED: MAGNESIUM SULFATE 2 GRAM 2 GM/50 ML BAG IV ONE (16:25)
[2017-10-30] MEDS ORDERED: HYDROcod/ACETAM 5/325 MG TABLET PO STA (16:26)
== END 2017-10-30 17:44 | disposition home or self-care (01) ==
LOC: EDUNIT# → ED 13:48
DX: J40 Bronchitis, not specified as acute or chronic (principal); M02.30 Reiter's disease, unspecified site; L97.819 Non-pressure chronic ulcer of other part of right lower leg with unspecified severity; E83.42 Hypomagnesemia; H46.9 Unspecified optic neuritis; Z79.52 Long term (current) use of systemic steroids; I49.1 Atrial premature depolarization; I25.10 Atherosclerotic heart disease of native coronary artery without angina pectoris; I11.0 Hypertensive heart disease with heart failure; I50.9 Heart failure, unspecified; E11.9 Type 2 diabetes mellitus without complications; Z79.84 Long term (current) use of oral hypoglycemic drugs; E24.9 Cushing's syndrome, unspecified; Z79.82 Long term (current) use of aspirin; F17.200 Nicotine dependence, unspecified, uncomplicated
CPT/HCPCS: 36415; 71046; 80053; 81003; 83690; 83735; 83880; 84484; 85025; 93005; 94640; 96374; 96375; 99284; A9270; 81001; 87086

== ENCOUNTER 2017-11-16 10:54 | Outpatient (CLI) | payer MEDICARE ==
[2017-11-16 12:34] LABS: FOLATE 2.2 ng/mL (5.90 - >24.8)
[2017-11-16 14:12] LABS: CRP - C-REACTIVE PROTEIN 3.8 mg/dL (0-1.0)
== END 2017-11-16 10:55 | disposition home or self-care (01) ==
LOC: LAB 10:54
PROVIDERS: ATTEND Internal Medicine
DX: E11.9 Type 2 diabetes mellitus without complications (principal); G90.2 Horner's syndrome; G50.9 Disorder of trigeminal nerve, unspecified; G89.29 Other chronic pain; K76.0 Fatty (change of) liver, not elsewhere classified; R79.0 Abnormal level of blood mineral; A69.9 Spirochetal infection, unspecified; D59.9 Acquired hemolytic anemia, unspecified
CPT/HCPCS: 36415; 81599; 82607; 82746; 83021; 83540; 84466; 85014; 85018; 85651; 86140; 86850; 86880

== ENCOUNTER 2017-11-25 01:55 | Outpatient (CLI) | payer MEDICARE | END 2017-11-25 01:56 | disposition critical access hospital (66) | LOC: EMS 01:55 | PROVIDERS: ATTEND Surgery | DX: M54.5 Low back pain (principal) ==

== ENCOUNTER 2017-11-25 02:10 | Emergency (ER) | payer MEDICARE ==
[2017-11-25] MEDS ORDERED: DEXAMETHASONE 10 MG/ML VIAL PO STA (02:19)
[2017-11-25] MEDS ORDERED: ACETAMINOPHEN 500 MG TABLET PO STA (02:19)
[2017-11-25] MEDS ORDERED: METHOCARBAMOL 500 MG TABLET PO STA (02:19)
--- NOTE | 2017-11-25 02:23 | ED Physician Documentation ---
PD HPI BACK PAIN - Stated complaint Stated Complaint: LOWER BACK PAIN - Chief complaint Chief Complaint: Back Pain - History obtained from History obtained from: Patient, EMS - History of Present Illness Timing - onset: Chronic Timing - details: Gradual onset, Still present Location: Lower, Right, Left Quality: Pain, Spasm, Similar to prior episodes Associated symptoms: No: Fever, Weakness, Numbness, Incontinent of urine, Unable to urinate Contributing factors: Lifting, Twisting Similar symptoms before: Work up / diagnostics, Treatment Recently seen: Not recently seen - Additional information Additional information: Patient is a 62 year old female with multiple ER visits who is presenting to the emergency department for low back pain. patient states that she has had a long history of low back pain and in the past would get injections. patient states that 9 days ago she had cataract surgery and lying flat exacerbated her pain. Patient states she had another cataract surgery three days ago and since that time her back has been spasming. patient denies any trauma, nausea, vomiting, dysuria, or neurological deficits. Review of Systems Ten Systems: 10 systems reviewed and negative Constitutional: denies: Fever, Chills : denies: Dysuria, Frequency, Unable to Void, Incontinent Skin: denies: Rash, Lesions Musculoskeletal: reports: Back pain Neurologic: denies: Focal weakness, Numbness PD PAST MEDICAL HISTORY - Past Medical History Cardiovascular: Congestive heart failure, Hypertension Respiratory: Other Endocrine/Autoimmune: Type 2 diabetes GI: GERD, Colon polyps, Chronic diarrhea, Other : Incontinence HEENT: Chronic vision loss, Chronic sinusitis Psych: Depression, Anxiety, Obsessive compulsive disorder Musculoskeletal: Osteoarthritis Derm: Other - Past Surgical History Past Surgical History: Yes General: Cholecystectomy, Appendectomy, Bowel surgery, Other Ortho: 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 [employer]ER: 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, Oophrectomy Cardiovascular: Cardiac catheterization HEENT: Tonsil/Adenoidectomy - Present Medications Home Medications: Ambulatory Orders Medication Instructions Recorded Confirmed Aspirin [Aspirin EC] 650 mg PO 0800,1200,1600,2000 05/29/13 09/21/17 FLUoxetine [PROzac] 20 mg PO DAILY 05/29/13 09/21/17 Metoprolol Tartrate 50 mg PO BID 05/29/13 09/21/17 Potassium Chloride 20 meq PO DAILY PRN 05/29/13 09/21/17 Esomeprazole Magnesium [Nexium] 40 mg PO QDAC 05/01/14 09/21/17 Nystatin 1 each TOP QID PRN 08/07/14 09/21/17 Cetirizine [ZyrTEC] 10 mg PO DAILY 03/03/17 09/21/17 Glimepiride 1 mg PO 1700 03/03/17 09/21/17 guaiFENesin [Mucinex] 1,200 mg PO BID 03/03/17 09/21/17 metFORMIN [Glucophage] 500 mg PO BIDWM 03/03/17 09/21/17 predniSONE [Prednisone] 30 mg PO DAILY 05/14/17 09/21/17 Levofloxacin [Levaquin] 500 mg PO DAILY 09/21/17 09/21/17 Albuterol Sulfate [Proventil Hfa 1 - 2 puffs IH Q4H PRN #1 10/30/17 Inhaler] hfa.aer.ad HYDROcod/ACETAM 5/325 [[place] 5/325] 1 - 2 ea PO Q6H PRN #7 tablet 10/30/17 predniSONE [Deltasone] 60 mg PO DAILY 5 Days tablet 10/30/17 Lidocaine Patch 5% [Lidoderm Patch] 1 each TOP DAILY #14 patch 11/25/17 Methocarbamol [Robaxin] 500 mg PO Q6H #10 tablet 11/25/17 - Allergies Allergies/Adverse Reactions: Allergies Allergy/AdvReac Type Severity Reaction Status Date / Time droperidol [From Inapsine] Allergy Severe EPS Verified 07/09/17 14:16 ibuprofen [From Motrin] Allergy Severe Anaphylaxis Verified 07/09/17 14:16 peanut Allergy Severe Anaphylaxis Verified 07/09/17 14:16 shellfish derived Allergy Severe Anaphylaxis Verified 07/09/17 14:16 [id number]-Qmk Reductase Allergy Severe muscle pain Verified 07/09/17 14:16 Inhibitor amoxicillin [Amoxicillin] Allergy Intermediate Hives Verified 07/09/17 14:16 cefazolin Allergy Intermediate Hives Verified 07/09/17 14:16 Cephalosporins Allergy Intermediate Hives Verified 07/09/17 14:16 clindamycin Allergy Intermediate Hives Verified 07/09/17 14:16 cyclobenzaprine Allergy Intermediate Hives/night Verified 07/09/17 14:16 [Cyclobenzaprine] castaneda erythromycin base Allergy Intermediate Hives Verified 07/09/17 14:16 [Erythromycin Base] potassium clavulanate * Allergy Intermediate Hives Verified 07/09/17 14:16 [From Augmentin] ketorolac tromethamine * Allergy Anaphylaxis Verified 07/09/17 14:16 [From Toradol] duloxetine AdvReac Severe Suicidal Verified 07/09/17 14:16 etanercept [From Enbrel] AdvReac Severe Nausea/vomm Verified 10/30/17 13:55 iting/cramp s methotrexate AdvReac Severe N/V/Cramps Verified 10/30/17 13:55 NSAIDS (Non-Steroidal AdvReac Severe N/V/Cramps Verified 10/30/17 13:55 Anti-Inflamma prochlorperazine AdvReac Severe EPS Verified 10/30/17 13:55 pseudoephedrine AdvReac Severe Tachycardia Verified 10/30/17 13:55 sumatriptan AdvReac Severe Widened QRS Verified 10/30/17 13:55 doxycycline AdvReac Intermediate Hives Verified 10/30/17 13:55 gabapentin AdvReac Intermediate Gait Verified 10/30/17 13:55 disturbance latex AdvReac Intermediate Sensitivity Verified 10/30/17 13:55 prochlorperazine edisylate * AdvReac Unknown Verified 10/30/17 13:55 [From Compazine] prochlorperazine maleate * AdvReac Unknown Verified 10/30/17 13:55 [From Compazine] promethazine [From Phenergan] AdvReac Hallucinati Verified 10/30/17 13:55 ons Tape AdvReac Severe Blisters Uncoded 10/30/17 13:55 - Social History Does the pt smoke?: Yes Smoking Status: Current every day smoker Does the pt drink ETOH?: Yes Does the pt have substance abuse?: No - Immunizations Immunizations are current?: Yes - POLST Patient has POLST: Yes POLST Status: DNR PD ED PE NORMAL - Vitals Vital signs reviewed: Yes - General General: Alert and oriented X 3 - HEENT HEENT: Atraumatic - Cardiac Cardiac: RRR - Respiratory Respiratory: No respiratory distress - Abdomen Abdomen: Soft, Non distended - Derm Derm: Normal color, No rash - Extremities Extremities: No deformity - Neuro Neuro: Alert and oriented X 3 Eye Opening: Spontaneous Motor: Obeys Commands Verbal: Oriented GCS Score: 15 PD ED PE EXPANDED - Back Back: Soft tissue tenderness (bilateral tenderness to palption, no gross deformity) - Neuro Neuro: Normal Sensation (no saddle parasthesia ) Results - Vitals Vitals: Vital Signs - 24 hr 11/25/17 11/25/17 11/25/17 02:12 02:34 03:11 Temperature 37.1 C Heart Rate 67 69 69 Respiratory 20 17 18 Rate Blood Pressure 154/80 H 122/72 131/64 H O2 Saturation 100 99 99 11/25/17 03:43 Temperature Heart Rate 71 Respiratory 18 Rate Blood Pressure 141/67 H O2 Saturation 95 Oxygen O2 Source [Without Activity] Room air O2 Source Room air PD MEDICAL DECISION MAKING - ED course Complexity details: reviewed old records, reviewed results, re-evaluated patient , considered differential, d/w patient ED course: Patient was seen and examined at bedside. Patient had no acute trauma or neurological deficits. Imaging was not indicated at this time. patient was treated with tylenol, robaxin and decadron. Patient had mild relief. Patient was made aware that she would not get narcotics and became a bit irate. Patient was treated with a lidoderm patch. Patient stated she was still in pain and was offered ketamine. Patient stated that she had too many allergies and did not want to try it. patient stated valium had helped in the past. Patient was treated with 5mg of valium. Patient responded well. patient required no further work up at this time and was stable for discharge with outpatient follow up. - Sepsis Event Vital Signs: Vital Signs - 24 hr 11/25/17 11/25/17 11/25/17 02:12 02:34 03:11 Temperature 37.1 C Heart Rate 67 69 69 Respiratory 20 17 18 Rate Blood Pressure 154/80 H 122/72 131/64 H O2 Saturation 100 99 99 11/25/17 03:43 Temperature Heart Rate 71 Respiratory 18 Rate Blood Pressure 141/67 H O2 Saturation 95 Oxygen O2 Source [Without Activity] Room air O2 Source Room air Departure - Departure Disposition: 01 Home, Self Care Clinical Impression: Back pain Condition: Good Instructions: ED Spasm Muscle Follow-Up: GIRMA LOPEZ MD [Primary Care Provider] - Tomorrow Prescriptions: Lidocaine Patch 5% [Lidoderm Patch] 1 each TOP DAILY #14 patch Methocarbamol [Robaxin] 500 mg PO Q6H #10 tablet Comments: Your symptoms today are likely secondary to muscle spasm. You were treated with with decadron, tylenol and methocarbamol. You can continue with ice and heat and your chronic pain management. You should follow up with your doctor tomorrow for further evaluation and care. You may return to the emergency department at any time for new, worsening or uncontrollable symptoms. Discharge Date/Time: 11/25/17 04:45
[2017-11-25] MEDS ORDERED: ONDANSETRON ODT 4 MG TABLET TL STA (02:45)
[2017-11-25 03:44] VITALS: BP 141/67
[2017-11-25] MEDS ORDERED: LIDOCAINE PATCH 5% TOP STA (03:59)
[2017-11-25] MEDS ORDERED: KETAMINE 500 MG/10 ML VIAL IVP STA (04:09)
[2017-11-25] MEDS ORDERED: diazePAM 5 MG TABLET PO STA (04:29)
== END 2017-11-25 04:45 | disposition home or self-care (01) ==
LOC: EDUNIT# → ED 02:10
DX: M54.5 Low back pain (principal); G89.29 Other chronic pain; I11.0 Hypertensive heart disease with heart failure; I50.9 Heart failure, unspecified; E11.9 Type 2 diabetes mellitus without complications; K21.9 Gastro-esophageal reflux disease without esophagitis; M19.90 Unspecified osteoarthritis, unspecified site; Z86.010 Personal history of colon polyps; Z79.82 Long term (current) use of aspirin; Z79.84 Long term (current) use of oral hypoglycemic drugs; F17.200 Nicotine dependence, unspecified, uncomplicated
CPT/HCPCS: 99283; A9270; Q0162

== ENCOUNTER 2017-11-25 18:09 | Outpatient (CLI) | payer MEDICARE | END 2017-11-25 18:10 | disposition critical access hospital (66) | LOC: EMS 18:09 | PROVIDERS: ATTEND Surgery | DX: M54.9 Dorsalgia, unspecified (principal); R53.1 Weakness; R51 Headache; W08.XXXA Fall from other furniture, initial encounter; Y92.008 Other place in unspecified non-institutional (private) residence as the place of occurrence of the external cause | CPT/HCPCS: A0425; A0429 ==

== ENCOUNTER 2017-11-25 18:24 | Observation (INO) | payer MEDICARE ==
[2017-11-25] MEDS ORDERED: SODIUM CHLORIDE 0.9% 1,000 ML IV ONE (18:47)
[2017-11-25] MEDS ORDERED: HYDROmorphone 2 MG/ML VIAL IVP STA ×2 (18:47→20:51)
[2017-11-25] MEDS ORDERED: ONDANSETRON 4 MG/2 ML VIAL IVP STA (18:47)
--- NOTE | 2017-11-25 18:53 | ED Physician Documentation ---
PD HPI BACK INJURY - Stated complaint Stated Complaint: WEAKNESS - History obtained from History obtained from: Patient, EMS - History of Present Illness Location: Lower (This is a 62-year-old woman with complicated medical history including Dayana's disease, diabetes, pulmonary hypertension, idiopathic brainstem swelling with right-sided effect. She was here last night which is been going on for about a week since she had her cataracts fixed. She had the cataracts fixed under anesthesia feels like she must of been laying flat for this because she woke up doing that her back was going to be giving her problems. Yesterday it became unbearable and was seen here in the emergency to months. She was unable to fill her prescriptions because basically she got home and went to bed and then when she got out of bed this morning she could not walk because the pain was so severe in her legs were numb. She was incontinence but she knew she was incontinent, it was basically an issue being unable to get to the bathroom because of such severe pain.) Review of Systems Ten Systems: 10 systems reviewed and negative Constitutional: denies: Fever, Chills Cardiac: denies: Chest pain / pressure, Palpitations Respiratory: denies: Dyspnea, Cough GI: reports: Nausea. denies: Abdominal Pain, Vomiting PD PAST MEDICAL HISTORY - Past Medical History Cardiovascular: Congestive heart failure, Hypertension Respiratory: Other Endocrine/Autoimmune: Type 2 diabetes GI: GERD, Colon polyps, Chronic diarrhea, Other : Incontinence HEENT: Chronic vision loss, Chronic sinusitis Psych: Depression, Anxiety, Obsessive compulsive disorder Musculoskeletal: Osteoarthritis Derm: Other - Past Surgical History Past Surgical History: Yes General: Cholecystectomy, Appendectomy, Bowel surgery, Other Ortho: Knee replacement /[employer] REPA[employer]ER: 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, Oophrectomy Cardiovascular: Cardiac catheterization HEENT: Tonsil/Adenoidectomy - Present Medications Home Medications: Ambulatory Orders Medication Instructions Recorded Confirmed Aspirin [Aspirin EC] 650 mg PO 0800,1200,1600,199905/29/13 09/21/17 FLUoxetine [PROzac] 20 mg PO DAILY 05/29/13 09/21/17 Metoprolol Tartrate 50 mg PO BID 05/29/13 09/21/17 Potassium Chloride 20 meq PO DAILY PRN 05/29/13 09/21/17 Esomeprazole Magnesium [Nexium] 40 mg PO QDAC 05/01/14 09/21/17 Nystatin 1 each TOP QID PRN 08/07/14 09/21/17 Cetirizine [ZyrTEC] 10 mg PO DAILY 03/03/17 09/21/17 Glimepiride 1 mg PO 1700 03/03/17 09/21/17 guaiFENesin [Mucinex] 1,200 mg PO BID 03/03/17 09/21/17 metFORMIN [Glucophage] 500 mg PO BIDWM 03/03/17 09/21/17 predniSONE [Prednisone] 30 mg PO DAILY 05/14/17 09/21/17 Levofloxacin [Levaquin] 500 mg PO DAILY 09/21/17 09/21/17 Albuterol Sulfate [Proventil Hfa 1 - 2 puffs IH Q4H PRN #1 10/30/17 Inhaler] hfa.aer.ad HYDROcod/ACETAM 5/325 [[place] 5/325] 1 - 2 ea PO Q6H PRN #7 tablet 10/30/17 predniSONE [Deltasone] 60 mg PO DAILY 5 Days tablet 10/30/17 Lidocaine Patch 5% [Lidoderm Patch] 1 each TOP DAILY #14 patch 11/25/17 Methocarbamol [Robaxin] 500 mg PO Q6H #10 tablet 11/25/17 - Allergies Allergies/Adverse Reactions: Allergies Allergy/AdvReac Type Severity Reaction Status Date / Time droperidol [From Inapsine] Allergy Severe EPS Verified 07/09/17 14:16 ibuprofen [From Motrin] Allergy Severe Anaphylaxis Verified 07/09/17 14:16 peanut Allergy Severe Anaphylaxis Verified 07/09/17 14:16 shellfish derived Allergy Severe Anaphylaxis Verified 07/09/17 14:16 Thfgado-Zya-Tbc Reductase Allergy Severe muscle pain Verified 07/09/17 14:16 Inhibitor amoxicillin [Amoxicillin] Allergy Intermediate Hives Verified 07/09/17 14:16 cefazolin Allergy Intermediate Hives Verified 07/09/17 14:16 Cephalosporins Allergy Intermediate Hives Verified 07/09/17 14:16 clindamycin Allergy Intermediate Hives Verified 07/09/17 14:16 cyclobenzaprine Allergy Intermediate Hives/night Verified 07/09/17 14:16 [Cyclobenzaprine] castaneda erythromycin base Allergy Intermediate Hives Verified 07/09/17 14:16 [Erythromycin Base] potassium clavulanate * Allergy Intermediate Hives Verified 07/09/17 14:16 [From Augmentin] ketorolac tromethamine * Allergy Anaphylaxis Verified 07/09/17 14:16 [From Toradol] duloxetine AdvReac Severe Suicidal Verified 07/09/17 14:16 etanercept [From Enbrel] AdvReac Severe Nausea/vomm Verified 10/30/17 13:55 iting/cramp s methotrexate AdvReac Severe N/V/Cramps Verified 10/30/17 13:55 NSAIDS (Non-Steroidal AdvReac Severe N/V/Cramps Verified 10/30/17 13:55 Anti-Inflamma prochlorperazine AdvReac Severe EPS Verified 10/30/17 13:55 pseudoephedrine AdvReac Severe Tachycardia Verified 10/30/17 13:55 sumatriptan AdvReac Severe Widened QRS Verified 10/30/17 13:55 doxycycline AdvReac Intermediate Hives Verified 10/30/17 13:55 gabapentin AdvReac Intermediate Gait Verified 10/30/17 13:55 disturbance latex AdvReac Intermediate Sensitivity Verified 10/30/17 13:55 morphine AdvReac Unknown Verified 11/25/17 20:47 prochlorperazine edisylate * AdvReac Unknown Verified 10/30/17 13:55 [From Compazine] prochlorperazine maleate * AdvReac Unknown Verified 10/30/17 13:55 [From Compazine] promethazine [From Phenergan] AdvReac Hallucinati Verified 10/30/17 13:55 ons Tape AdvReac Severe Blisters Uncoded 10/30/17 13:55 - Social History Does the pt smoke?: Yes Smoking Status: Current every day smoker Does the pt drink ETOH?: Yes Does the pt have substance abuse?: No - Family History Family history: reports: Non contributory - Immunizations Immunizations are current?: Yes - POLST Patient has POLST: Yes POLST Status: DNR PD ED PE NORMAL - Vitals Vital signs reviewed: Yes - General General: Alert and oriented X 3, Other (She is in severe pain with motion, laying left lateral decubitus.) - Neck Neck: Supple, no meningeal sign, No bony TTP - Cardiac Cardiac: RRR, No murmur - Respiratory Respiratory: No respiratory distress, Clear bilaterally - Abdomen Abdomen: Normal bowel sounds, Soft, Non tender - Back Back: Other (There is no tender to palpation of the lumbar spine. She has equal sensation throughout the legs and it is normal per her. I am unable to check reflexes in the patella because of chronic knee wound on the right and the left leg is tucked under the right leg and she cannot move. Her strength in flexion and extension at the ankle seems okay.) - Derm Derm: Normal color, Warm and dry - Neuro Neuro: Alert and oriented X 3, Normal speech - Psych Psych: Normal mood, Normal affect Results - Vitals Vitals: Vital Signs - 24 hr 11/25/17 11/25/17 11/25/17 18:57 19:05 20:13 Temperature 36.1 C L Heart Rate 79 77 81 Respiratory 15 14 17 Rate Blood Pressure 105/84 H 132/76 H 149/74 H O2 Saturation 94 97 98 11/25/17 11/25/17 11/25/17 20:40 21:55 21:57 Temperature Heart Rate 70 72 70 Respiratory 17 17 14 Rate Blood Pressure 134/69 H 130/63 130/63 O2 Saturation 92 76 L 95 11/25/17 22:52 Temperature Heart Rate 65 Respiratory 17 Rate Blood Pressure 104/63 O2 Saturation 99 Oxygen O2 Source [Without Activity] Room air O2 Source Nasal cannula - Labs Labs: Laboratory Tests 11/25/17 11/25/17 19:08 19:38 WBC 9.9 RBC 5.34 Hgb 10.3 L Hct 34.2 L MCV 64.1 L MCH 19.4 L MCHC 30.2 L RDW 23.9 H Plt Count 577 H MPV 8.1 Neut # (Auto) 9.0 H Lymph # (Auto) 0.7 L [place] # (Auto) 0.2 Eos # (Auto) 0.0 Baso # (Auto) 0.1 Absolute Nucleated RBC 0.01 Nucleated RBC % 0.1 Manual Slide Review Indicated Platelet Estimate INCREASED (>450,000) Platelet Morphology 1+ LARGE PLATELETS RBC Morph Micro Appear 1+ POLYCHROMASIA Sodium 134 L Potassium 3.7 Chloride 98 L Carbon Dioxide 28 Anion Gap 8.0 BUN 10 Creatinine 0.5 Estimated GFR (MDRD) 125 Glucose 161 H Calcium 9.4 Magnesium 1.7 Total Bilirubin 0.4 AST 19 ALT 17 Alkaline Phosphatase 114 Total Creatine Kinase 17 L Total Protein 7.2 Albumin 3.3 Globulin 3.9 Albumin/Globulin Ratio 0.8 L Lipase 60 H - Rads (name of study) L scpine CT Radiology: EMP read contemporaneously (Multilevel degenerative changes without acute abnormality) PD MEDICAL DECISION MAKING - ED course ED course: This is a 62-year-old woman with complicated medical history including chronic steroid use, diabetes and a number of other problems who presents with acute low back pain that was unresponsive to conservative measures last night and she lives alone and basically spent the whole day on the floor because of severe pain and being unable to get herself up. Her neuro exam is reassuring but despite divided doses of IV medications here, we are unable to get her to a level of functionality that would permit discharge and I called Dr. Stoll for observation at 9:30 PM. - Sepsis Event Vital Signs: Vital Signs - 24 hr 11/25/17 11/25/17 11/25/17 18:57 19:05 20:13 Temperature 36.1 C L Heart Rate 79 77 81 Respiratory 15 14 17 Rate Blood Pressure 105/84 H 132/76 H 149/74 H O2 Saturation 94 97 98 11/25/17 11/25/17 11/25/17 20:40 21:55 21:57 Temperature Heart Rate 70 72 70 Respiratory 17 17 14 Rate Blood Pressure 134/69 H 130/63 130/63 O2 Saturation 92 76 L 95 11/25/17 22:52 Temperature Heart Rate 65 Respiratory 17 Rate Blood Pressure 104/63 O2 Saturation 99 Oxygen O2 Source [Without Activity] Room air O2 Source Nasal cannula Departure - Departure Disposition: ED Place in Observation Clinical Impression: Nicotine dependence with withdrawal Diabetes Qualifiers: Diabetes mellitus type: type 2 Diabetes mellitus terminal carman insulin use: without terminal carman use Diabetes mellitus complication status: with hyperglycemia Qualified Code(s): E11.65 - Type 2 diabetes mellitus with hyperglycemia Controlled type 2 diabetes mellitus with complication Qualifiers: Diabetes mellitus terminal carman insulin use: without penitentiary use Qualified Code(s ): E11.8 - Type 2 diabetes mellitus with unspecified complications Ulcer of leg, chronic, right Qualifiers: Non-pressure ulcer stage: limited to breakdown of skin Qualified Code(s): L97.911 - Non-pressure chronic ulcer of unspecified part of right lower leg limited to breakdown of skin Back pain Qualifiers: Back pain location: low back pain Chronicity: acute Back pain laterality: bilateral Sciatica presence: with sciatica Sciatica laterality: bilateral sciatica Qualified Code(s): M54.42 - Lumbago with sciatica, left side Condition: Stable
[2017-11-25 19:17] LABS: BASOPHILS # (AUTO) 0.1 10^3/uL (0.0-0.1); BASOPHILS % (AUTO) 0.7 %; EOSINOPHILS % (AUTO) 0.2 %; HGB - HEMOGLOBIN 10.3 g/dL (12.0-16.0); LYMPHOCYTES # (AUTO) 0.7 10^3/uL (1.5-3.5); LYMPHOCYTES % (AUTO) 6.9 %; MEAN CORPUSCULAR HEMOGLOBIN 19.4 pg (27.0-31.0); MEAN CORPUSCULAR HGB CONC 30.2 g/dL (32.0-36.0); MEAN CORPUSCULAR VOLUME 64.1 fL (81.0-99.0); MEAN PLATELET VOLUME 8.1 fL (7.9-10.8); MONOCYTES # (AUTO) 0.2 10^3/uL (0.0-1.0); MONOCYTES % (AUTO) 1.8 %; NEUTROPHILS % (AUTO) 90.4 %; PLT - PLATELET COUNT 577 10^3/uL (130-450); RED BLOOD COUNT 5.34 10^6/uL (4.20-5.40); RED CELL DISTRIBUTION WIDTH 23.9 % (12.0-15.0); WHITE BLOOD COUNT 9.9 x10^3/uL (4.8-10.8)
[2017-11-25 19:44] LABS: PLATELET ESTIMATE, MANUAL INCREASED (>450,000) (NORMAL); PLATELET MORPHOLOGY 1+ LARGE PLATELETS (NORMAL)
[2017-11-25 19:56] LABS: ALBUMIN 3.3 g/dL (3.2-5.5); ALBUMIN/GLOBULIN RATIO 0.8 (1.0-2.2); BILIRUBIN,TOTAL 0.4 mg/dL (0.2-1.0); CALCIUM 9.4 mg/dL (8.5-10.3); CREATININE 0.5 mg/dL (0.4-1.0); MAGNESIUM 1.7 mg/dL (1.7-2.8); TOTAL PROTEIN 7.2 g/dL (6.7-8.2)
--- NOTE | 2017-11-25 20:38 | CT Report ---
Procedure Date: 11/25/2017 Accession Number: [id number] / [id number] Procedure: CT - Lumbar Spine W/O CPT Code: FULL RESULT: EXAM: CT LUMBAR SPINE WITHOUT CONTRAST EXAM DATE: 11/25/2017 08:05 PM. CLINICAL HISTORY: Back pain. COMPARISONS: 07/28/2017. TECHNIQUE: Thin-section axial images were acquired of the lumbar spine from T12 to S1 without contrast. Post-processing: Coronal and sagittal reformats. Other: None. In accordance with CT protocol optimization, one or more of the following dose reduction techniques were utilized for this exam: automated exposure control, adjustment of mA and/or KV based on patient size, or use of iterative reconstructive technique. FINDINGS: Alignment: 0.4 cm anterolisthesis of L4 on L5 is stable. Bones: Five [id number] lumbar vertebral bodies are present. No fractures or bone lesions. Disk Levels/Facets: T12-L1: Unremarkable. L1-L2: Unremarkable. L2-L3: There is mild spinal stenosis secondary to disk bulge. L3-L4: There is mild spinal stenosis and moderate left-sided neural foramen narrowing secondary to disk bulge and facet arthrosis. L4-L5: There is moderate spinal stenosis and moderate bilateral neural foramen narrowing secondary to disk bulge, anterolisthesis, and facet arthrosis. L5-S1: Unremarkable. Musculature: Normal. No fatty atrophy. Other: The visualized retroperitoneum is unremarkable. IMPRESSION: 1. No evidence of fracture or dislocation. 2. There is lower lumbar degenerative disease as above. This is most pronounced at the L3-L4 and L4-L5 levels. RADIA
[2017-11-25] MEDS: MORPHINE 2 MG/ML SYRINGE IVP STA ×2 (20:45→20:46)
[2017-11-25] MEDS ORDERED: diazePAM INJ 5 MG/ML SYRINGE IVP STA (21:26)
[2017-11-25] MEDS ORDERED: oxyCODONE 5 MG TABLET PO PRN (23:09)
[2017-11-25] MEDS ORDERED: ONDANSETRON ODT 4 MG TABLET TL PRN (23:09)
[2017-11-25] MEDS ORDERED: ACETAMINOPHEN 325 MG TABLET PO PRN (23:09)
[2017-11-25] MEDS ORDERED: SODIUM CHLORIDE FLUSH 0.9% 10 ML SYRINGE IVP PRN (23:09)
[2017-11-25] MEDS ORDERED: POTASSIUM CHLORIDE 10 MEQ CAPSULE PO PRN (23:14)
--- NOTE | 2017-11-25 23:23 | HISTORY & PHYSICAL EXAMINATION ---
Chief Complaint - Chief Complaint Chief Complaint: back pain so severe she can't get out of bed History of Present Illness - Admitted From Admitted From:: Home/ER - History Obtained From Records Reviewed: [facility] History obtained from: vikas Monsalve and patient Exam Limitations: patient has enough pain hard to focus on answering questions - History of Present Illness HPI Comment/Other: she had a long long hx of sedentary lifestyle bc of her chronic pain. 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 The patient denies any headache, blurred vision, runny nose, sore throat, nasal congestion, difficulty swallowing , neck pain, neck stiffness, chest pain, shortness of air, orthopnea, PND, increased lower extremity swelling, constipation, urinary urgency, urinary frequency, dysuria, , neck stiffness, recent unintentional weight loss, night sweats or any focal neurologic deficits. She had one cataract done 9 days ago and then the second one 3 days ago. She is convinced that the laying down for the procedures induced back spasms that are so fierce she can't sit to transfer, and can only lay in bed. She came to the ER in the hotel desk clerk hours of today with this. Seen and sent back home with diagnosis of back pain. She was unable to fill her Rx since she layed back down and didn't get up in time to get meds. She then woke up and found she couldn't get off the sofa she was laying on. She layed there for until around 5 pm when she tried to slide to the floor and then hoped to drage herslef into the kitched for the phone and help. But once she was on the floor she couldn't even drag herself. the pain on the left scapula, left posterir thoracic area, left waist all spasmed so much she was screaming with the pain. She lay there for a few hours until her friends came looking for her and EMS called. She returns with continued back pain. Nonradiating to legs. Legs not any more weak than usual. No radicular component. CT of the back is without fracture and only mild stenosis at 2 levels. She is now placed in OBV for managment of her pain. History - Past Medical History Cardiovascular: reports: Congestive heart failure, Hypertension Respiratory: reports: Other Endocrine/Autoimmune: reports: Type 2 diabetes, Other (morbid obesity) GI: reports: GERD, Colon polyps, Chronic diarrhea, Other GROUND WATER TECHNICIAN: reports: Ovarian cysts, Other () : reports: Incontinence HEENT: reports: Chronic vision loss, Chronic sinusitis Psych: reports: Depression, Anxiety, Obsessive compulsive disorder (with picking of skin. Resulted in chronic wound of right skin of knee) Musculoskeletal: reports: Osteoarthritis Derm: reports: Other MRSA Hx?: No Other Past Medical History: 1. 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 Spring syndrome 4. Diabetes secondary to chronic steroids 5. Obesity 6. Pulmonary hypertension 7. Congestive heart failure 8. Irritable bowel syndrome 9. Osteoarthritis 10. Anxiety 11. Depression 12. History of sphenoid sinus mass 13. History of small bowel obstruction 14. Nathalia syndrome 15. Trigeminal neuralgia 16. Fatty liver disease 17. Chronic back pain 18. History of small bowel obstruction 19. GERD 20. Polycystic ovarian syndrome - Past Surgical History General: reports: Cholecystectomy, Appendectomy, Bowel surgery, Other Ortho: reports: Knee replacement /GROUND WATER TECHNICIAN: reports: 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, Oophrectomy Cardiovascular: reports: Cardiac catheterization HEENT: reports: Tonsil/Adenoidectomy - Family & Social History Family History Comment/Other: Patient's mother had asthma. Father had Alzheimer 's disease and coronary artery disease and is . 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 14 years ago she then went to [facility], [facility] and finally worked here at [employer]. . She is originally from the [place] in [facility]. She lives alone with her dog. She does not have any biological children. She is not . She is a smoker and continue to smoke a pack a day and has been smoking for 45 years. She does not drink alcohol. She did try to use cannibis for pain control but it did not work and she does not use any other illicit drugs. She describes a severe change in lifestyle when she first became ill ~2006. she has gradually lost her social network and has 2 friends plus her library club. Very lonely. Wants to . Would like. assisted suicide. - Substance History Use: Uses substance without health or social issues: Tobacco Abuse: Recurrent use of substance despite neg consequences: NONE Dependence: Experiences withdrawal or developed tolerances: NONE - POLST Patient has POLST: Yes POLST Status: DNR Meds/Allgy - Home Medications Home Medications: Ambulatory Orders Medication Instructions Recorded Confirmed Aspirin [Aspirin EC] 650 mg PO 0800,1200,1600,2000 05/29/13 09/21/17 FLUoxetine [PROzac] 20 mg PO DAILY 05/29/13 09/21/17 Metoprolol Tartrate 50 mg PO BID 05/29/13 09/21/17 Potassium Chloride 20 meq PO DAILY PRN 05/29/13 09/21/17 Esomeprazole Magnesium [Nexium] 40 mg PO QDAC 05/01/14 09/21/17 Nystatin 1 each TOP QID PRN 08/07/14 09/21/17 Cetirizine [ZyrTEC] 10 mg PO DAILY 03/03/17 09/21/17 Glimepiride 1 mg PO 1700 03/03/17 09/21/17 guaiFENesin [Mucinex] 1,200 mg PO BID 03/03/17 09/21/17 metFORMIN [Glucophage] 500 mg PO BIDWM 03/03/17 09/21/17 predniSONE [Prednisone] 30 mg PO DAILY 05/14/17 09/21/17 Levofloxacin [Levaquin] 500 mg PO DAILY 09/21/17 09/21/17 Albuterol Sulfate [Proventil Hfa 1 - 2 puffs IH Q4H PRN #1 10/30/17 Inhaler] hfa.aer.ad HYDROcod/ACETAM 5/325 [[place] 5/325] 1 - 2 ea PO Q6H PRN #7 tablet 10/30/17 predniSONE [Deltasone] 60 mg PO DAILY 5 Days tablet 10/30/17 Lidocaine Patch 5% [Lidoderm Patch] 1 each TOP DAILY #14 patch 11/25/17 Methocarbamol [Robaxin] 500 mg PO Q6H #10 tablet 11/25/17 - Allergies Allergies/Adverse Reactions: Allergies Allergy/AdvReac Type Severity Reaction Status Date / Time droperidol [From Inapsine] Allergy Severe EPS Verified 07/09/17 14:16 ibuprofen [From Motrin] Allergy Severe Anaphylaxis Verified 07/09/17 14:16 peanut Allergy Severe Anaphylaxis Verified 07/09/17 14:16 shellfish derived Allergy Severe Anaphylaxis Verified 07/09/17 14:16 [id number] Reductase Allergy Severe muscle pain Verified 07/09/17 14:16 Inhibitor amoxicillin [Amoxicillin] Allergy Intermediate Hives Verified 07/09/17 14:16 cefazolin Allergy Intermediate Hives Verified 07/09/17 14:16 Cephalosporins Allergy Intermediate Hives Verified 07/09/17 14:16 clindamycin Allergy Intermediate Hives Verified 07/09/17 14:16 cyclobenzaprine Allergy Intermediate Hives/night Verified 07/09/17 14:16 [Cyclobenzaprine] castaneda erythromycin base Allergy Intermediate Hives Verified 07/09/17 14:16 [Erythromycin Base] potassium clavulanate * Allergy Intermediate Hives Verified 07/09/17 14:16 [From Augmentin] ketorolac tromethamine * Allergy Anaphylaxis Verified 07/09/17 14:16 [From Toradol] duloxetine AdvReac Severe Suicidal Verified 07/09/17 14:16 etanercept [From Enbrel] AdvReac Severe Nausea/vomm Verified 10/30/17 13:55 iting/cramp s methotrexate AdvReac Severe N/V/Cramps Verified 10/30/17 13:55 NSAIDS (Non-Steroidal AdvReac Severe N/V/Cramps Verified 10/30/17 13:55 Anti-Inflamma prochlorperazine AdvReac Severe EPS Verified 10/30/17 13:55 pseudoephedrine AdvReac Severe Tachycardia Verified 10/30/17 13:55 sumatriptan AdvReac Severe Widened QRS Verified 10/30/17 13:55 doxycycline AdvReac Intermediate Hives Verified 10/30/17 13:55 gabapentin AdvReac Intermediate Gait Verified 10/30/17 13:55 disturbance latex AdvReac Intermediate Sensitivity Verified 10/30/17 13:55 morphine AdvReac Unknown Verified 11/25/17 20:47 prochlorperazine edisylate * AdvReac Unknown Verified 10/30/17 13:55 [From Compazine] prochlorperazine maleate * AdvReac Unknown Verified 10/30/17 13:55 [From Compazine] promethazine [From Phenergan] AdvReac Hallucinati Verified 10/30/17 13:55 ons Tape AdvReac Severe Blisters Uncoded 10/30/17 13:55 Review of Systems - Constitutional Constitutional: reports: Fatigue, Weakness, Poor appetite. denies: Fever, Chills, Diaphoresis, Night sweats - Eyes Eyes: reports: Pain (from cataracts and wants saline eye drops), Irritation, Blurred vision. denies: Amaurosis, Field loss, Vision loss, Dipolpia - Ears, Nose & Throat Ears, Nose & Throat: denies: Ear pain, Hearing loss, Hearing aids, Tinnitus, Vertigo, Nasal congestion, Postnasal drainage, Sore throat - Cardiovascular Cariovascular: reports: Edema (of legs is chronic). denies: Irregular heart rate, Palpitations, Chest pain - Respiratory Respiratory: reports: Apnea. denies: Cough, Sputum production, Wheezing - Gastrointestinal Gastrointestinal: denies: Abdominal pain, Abdominal distention, Constipation, Diarrhea - Genitourinary Genitourinary: denies: Dysuria, Frequency, Urgency - Musculoskeletal Musculoskeletal: reports: Muscle pain, Back pain (especially along left scapula , left waist and to left hip), Muscle aches, Stiffness - Integumentary Integumentary: reports: Lesions (she picks to left scapular area bloodied w excoriation, left anterior knee with quarter size loss of skin (superficial) but right knee has a large 10 x 3 cm area that is deep to muscle with granuation and edges are heaped eschar where she continues to pick and old incisicon for her knee replacment. Healed vertical midline knee scars.) - Neurological Neurological: reports: General weakness - Psychiatric Psychiatric: reports: Depression, Anxiety - Endocrine Endocrine: denies: Polyuria, Polydypsia, Polyphagia, Intolerance to cold - Hematologic/Lymphatic Hematologic/Lymphatic: denies: Anemia, Bruising, Petechiae Exam - Vital Signs Reviewed Vital Signs: Yes Vital Signs: Vital Signs x48h Temp Pulse Resp BP Pulse Ox 11/25/17 23:16 57 L 16 120/74 98 11/25/17 22:52 65 17 104/63 99 11/25/17 21:57 70 14 130/63 95 11/25/17 21:55 72 17 130/63 76 L 11/25/17 20:40 70 17 134/69 H 92 11/25/17 20:13 81 17 149/74 H 98 11/25/17 19:05 77 14 132/76 H 97 11/25/17 18:57 36.1 C L 79 15 105/84 H 94 - Physical Exam General Appearance: positive: Alert, Mild distress, Other (super obese white female) Eyes Bilateral: positive: PERRL ENT: positive: Pharynx nml Neck: positive: Other (cant assess for JVD). negative: Stiff neck, Carotid bruit Respiratory: positive: Chest non-tender, No respiratory distress, Other (bases of lungs without air sounds). negative: Wheezes, Rales, Rhonchi Cardiovascular: positive: Regular rate & rhythm. negative: Gallop/S4, Friction rub Peripheral Pulses: positive: 1+ Abdomen: positive: Non-tender, No organomegaly, Nml bowel sounds, No distention , Other (verfy large panus) Skin: positive: Warm, Dry Extremities: positive: Other (thick arms and legs with !+ edema around ankles) Neurologic/Psychiatric: positive: Oriented x3, CN's nml (2-12). negative: Motor nml (can lift legs to reposition but not off of bed,) Reflexes: Bicep (R): 0, Bicep (L): 0, Knee (R): 0, Knee (L): 0, Ankle (R): 0, Ankle (L): 0 Babinski Reflex: Right: Down, Left: Down Conclusion/Plan - Problem List (1) Intractable back pain Conclusion/Plan: no focal loss of strength Place i OBV dilaudid 0.5 IVP q4h PT eval she would like to go to SNF if she can't go home She has burned her bridges with COW and would like to go to [facility] (2) Ulcer of leg, chronic, right Conclusion/Plan: wound consult Qualifiers: Non-pressure ulcer stage: limited to breakdown of skin Qualified Code(s): L97.911 - Non-pressure chronic ulcer of unspecified part of right lower leg limited to breakdown of skin (3) Financial problems Conclusion/Plan: Case management and Social work consults ordered. (4) Controlled type 2 diabetes mellitus with complication Conclusion/Plan: hold off on metformin while here resume amaryl add SS novolog Qualifiers: Diabetes mellitus retirement insulin use: without retirement use Qualified Code(s): E11.8 - Type 2 diabetes mellitus with unspecified complications (5) Depression Conclusion/Plan: will ask for pallitative care consult to answer some of her questions about and dying Qualifiers: Depression Type: major depressive disorder Major depression recurrence: recurrent Active/Remission status: in partial remission Qualified Code(s): F33.41 - Major depressive disorder, recurrent, in partial remission - Lab Results Fish Bones: 11/25/17 19:08 11/25/17 19:38 - Diagnostic Imaging Results Diagnostic Imaging Results: positive: Final report reviewed Core Measures - Anticipated LOS I expect patient to be DC'd or transferred within 96 hours.: Yes - DVT/VTE - Prophylaxis VTE/DVT Device ordered at admit?: Yes
[2017-11-25 23:56] LABS: HB2 TOTAL 11.2 g/dL; HEMOGLOBIN A1C 0.57 g/dL; HEMOGLOBIN A1C % 6.8 % (4.6-6.2)
[2017-11-26] MEDS ORDERED: CARBOXYMETHYLCELLULOSE OPHTH DROPS EACHEYE PRN (00:16)
[2017-11-26] MEDS: METHOCARBAMOL 500 MG TABLET PO SCH ×5 (01:08→23:30)
[2017-11-26] MEDS: HYDROmorphone 2 MG/ML VIAL IVP SCH ×2 (01:09→05:30)
[2017-11-26] MEDS: SODIUM CHLORIDE FLUSH 0.9% 10 ML SYRINGE IVP SCH ×4 (03:42→23:30)
[2017-11-26] MEDS: NICOTINE 21 MG PATCH TOP SCH ×2 (03:42→08:16)
[2017-11-26] MEDS: ALBUTEROL NEB 2.5 MG/3 ML INH PRN (03:48)
[2017-11-26] MEDS: INSULIN ASPART 300 UNIT/3 ML PEN SUBQ SCH ×4 (08:15→21:41)
[2017-11-26] MEDS: LIDOCAINE PATCH 5% TOP SCH (08:17)
[2017-11-26] MEDS: METOPROLOL TARTRATE 50 MG TABLET PO SCH ×2 (08:18→21:45)
[2017-11-26] MEDS: FLUoxetine 10 MG CAPSULE PO SCH (08:18)
[2017-11-26] MEDS: ASPIRIN EC 325 MG TABLET PO SCH ×4 (08:19→21:10)
[2017-11-26] MEDS: guaiFENesin 600 MG TABLET PO SCH ×2 (08:19→21:13)
[2017-11-26] MEDS: metFORMIN 500 MG TABLET PO SCH ×2 (08:19→17:23)
[2017-11-26] MEDS: CETIRIZINE 10 MG TABLET PO SCH (08:21)
[2017-11-26] MEDS: POLYETHYLENE GLYCOL 3350 17 GM PACKET PO SCH (08:25)
[2017-11-26] MEDS ORDERED: NYSTATIN POWDER 15 GM TOP PRN (09:00)
[2017-11-26] MEDS ORDERED: predniSONE 20 MG TABLET PO SCH (09:00)
[2017-11-26] MEDS ORDERED: HYDROmorphone 0.5 MG/0.5 ML SYRINGE IVP SCH (10:36)
[2017-11-26] MEDS: predniSONE 20 MG TABLET PO SCH (11:08)
[2017-11-26] MEDS: ONDANSETRON 4 MG/2 ML VIAL IVP PRN ×2 (11:11→21:13)
[2017-11-26] MEDS ORDERED: EYE EACHEYE PRN (12:31)
[2017-11-26] MEDS ORDERED: SYSTANE EACHEYE PRN (12:31)
[2017-11-26] MEDS: HYDROcod/ACETAM 7.5 MG/325 MG TABLET PO PRN ×3 (13:00→21:10)
--- NOTE | 2017-11-26 13:46 | PROVIDER PROGRESS NOTE ---
Assessment/Plan - Problem List (1) Intractable back pain Assessment/Plan: Pt asks to have iv pain meds changed to po meds that will control her pain. Will start Vicodin which she says works. Patient will need assessment with PT before DCh home. Probable DCh tomorrow. (2) Controlled type 2 diabetes mellitus with complication Qualifiers: Diabetes mellitus object oriented developer insulin use: without object oriented developer use Qualified Code(s): E11.8 - Type 2 diabetes mellitus with unspecified complications Assessment/Plan: Continue carb controlled diet. Monitor glu (3) Depression Qualifiers: Depression Type: major depressive disorder Major depression recurrence: recurrent Active/Remission status: in partial remission Qualified Code(s): F33.41 - Major depressive disorder, recurrent, in partial remission Assessment/Plan: Continue her meds (4) Anemia Qualifiers: Anemia type: unspecified type Qualified Code(s): D64.9 - Anemia, unspecified Assessment/Plan: Will check B12, folate, Iron studies and guaic stool. Follow H/H - Current Meds Current Meds: Current Medications Generic Name Dose Route Start Last Admin Trade Name Freq PRN Reason Stop Dose Admin Hydrocodone Bitart/Acetaminophen 1 tab 11/26/17 11:04 11/26/17 13:00 [place] 7.5/325 PO 1 tab Q4HR PRN Administration PAIN Albuterol 2.5 mg 11/26/17 03:27 11/26/17 03:48 INH 2.5 mg RTQ4H PRN Administration Wheezing Aspirin 650 mg 11/26/17 08:00 11/26/17 12:07 Ecotrin PO 650 mg 0800,1200,1600,2000 RIVERA Administration Cetirizine HCl 10 mg 11/26/17 09:00 11/26/17 08:21 Zyrtec PO 10 mg DAILY RIVERA Administration Fluoxetine HCl 20 mg 11/26/17 09:00 11/26/17 08:18 Prozac PO 20 mg DAILY RIVERA Administration Guaifenesin 1,200 mg 11/26/17 09:00 11/26/17 08:19 Mucinex PO 1,200 mg BID RIVERA Administration Insulin Aspart 1 - 5 unit 11/26/17 08:00 11/26/17 11:48 Novolog SUBQ Not Given 0800,1200,1700,2100 [facility] Protocol Lidocaine 1 patch 11/26/17 09:00 11/26/17 08:17 Lidoderm Patch TOP 1 patch DAILY RIVERA Administration Metformin HCl 500 mg 11/26/17 08:00 11/26/17 08:19 Glucophage PO 500 mg BIDWM RIVERA Administration Methocarbamol 500 mg 11/26/17 00:00 11/26/17 12:07 Robaxin PO 500 mg Q6HR RIVERA Administration Metoprolol Tartrate 50 mg 11/26/17 09:00 11/26/17 08:18 Lopressor PO 50 mg BID RIVERA Administration Nicotine 1 patch 11/26/17 04:00 11/26/17 08:16 Nicoderm TOP 1 patch DAILY RIVERA Administration Ondansetron HCl 4 mg 11/25/17 23:09 11/26/17 11:11 Zofran Inj IVP 4 mg Q6HR PRN Administration Nausea / Vomiting Polyethylene Glycol 17 gm 11/26/17 09:00 11/26/17 08:25 Miralax PO Not Given DAILY RIVERA Prednisolone 1 drops 11/26/17 14:00 11/26/17 13:00 Pred Forte 1% Ophth Drops LEFTEYE 1 drops TID RIVERA Administration Prednisone 60 mg 11/26/17 09:00 11/26/17 11:08 Deltasone PO 60 mg DAILY RIVERA Administration Sodium Chloride 10 ml 11/26/17 01:00 11/26/17 08:30 Normal Saline Flush 0.9% IVP 10 ml 0100,0900,1700 RIVERA Administration Timolol Maleate 1 drops 11/26/17 14:00 11/26/17 13:00 Timoptic 0.5% Ophth Drops EACHEYE 1 drops TID RIVERA Administration - Lab Result Fish Bone Diagrams: 11/25/17 19:08 11/25/17 19:38 - Additional Planning My Orders: My Active Orders 11/26/17 11:04 HYDROcodone/ACET 7.5/325 [[place] 7.5/325] 1 tab PO Q4HR PRN 11/26/17 12:31 Patient Own Med [Patient Own Medication] 1 each EACHEYE QID PRN 11/26/17 14:00 Timolol 0.5% Ophth Drops [Timoptic 0.5% Ophth Drops] 1 drops EACHEYE TID prednisoLONE 1% OPHTH DROPS [Pred Forte 1% Ophth Drops] 1 drops LEFTEYE TID 11/26/17 Dinner Carb-controlled Diet [DIET] Subjective - Subjective Patient Reports: Resting Comfortably, Other (Wants to have pain under control on oral meds before DC.) Nursing Reports: Other (Wants her new eye drops for after cataract surgery.) Objective Vital Signs: Vital Signs - 24 hr 11/25/17 11/26/17 11/26/17 23:16 00:30 03:48 Temperature 36.5 C Heart Rate 57 L 90 Heart Rate [ 76 Brachial] Respiratory 16 24 20 Rate Blood Pressure 120/74 Blood Pressure 146/68 H [Right Brachial artery] O2 Saturation 98 96 11/26/17 11/26/17 08:00 08:18 Temperature 36.8 C Heart Rate Heart Rate [ 89 Brachial] Respiratory 18 Rate Blood Pressure 146/68 H Blood Pressure 124/54 L [Right Brachial artery] O2 Saturation 94 Oxygen O2 Source Nasal cannula I&O (Last 24 Hrs): Intake and Output Totals x24h 11/24/17 11/25/17 11/26/17 23:59 23:59 23:59 Intake Total 1960 Balance 1960 General: Alert, Oriented x3 HEENT: Mucous membr. moist/pink Neck: Supple Neuro: Non Focal Cardiovascular: No murmurs Respiratory: No respiratory distress Abdomen: Other (Obese with pannus) Extremities: Other (trace edema) - Results Results: Laboratory Results WBC 9.9 x10^3/uL (4.8-10.8) 11/25/17 19:08 RBC 5.34 10^6/uL (4.20-5.40) 11/25/17 19:08 Hgb 10.3 g/dL (12.0-16.0) L 11/25/17 19:08 Hct 34.2 % (37.0-47.0) L 11/25/17 19:08 MCV 64.1 fL (81.0-99.0) L 11/25/17 19:08 MCH 19.4 pg (27.0-31.0) L 11/25/17 19:08 MCHC 30.2 g/dL (32.0-36.0) L 11/25/17 19:08 RDW 23.9 % (12.0-15.0) H 11/25/17 19:08 Plt Count 577 10^3/uL (130-450) H 11/25/17 19:08 MPV 8.1 fL (7.9-10.8) 11/25/17 19:08 Neut # (Auto) 9.0 10^3/uL (1.5-6.6) H 11/25/17 19:08 Lymph # (Auto) 0.7 10^3/uL (1.5-3.5) L 11/25/17 19:08 Keith # (Auto) 0.2 10^3/uL (0.0-1.0) 11/25/17 19:08 Eos # (Auto) 0.0 10^3/uL (0.0-0.7) 11/25/17 19:08 Baso # (Auto) 0.1 10^3/uL (0.0-0.1) 11/25/17 19:08 Absolute Nucleated RBC 0.01 x10^3/uL 11/25/17 19:08 Nucleated RBC % 0.1 /100WBC 11/25/17 19:08 Manual Slide Review Indicated 11/25/17 19:08 Platelet Estimate INCREASED (>450,000) (NORMAL) 11/25/17 19:08 Platelet Morphology 1+ LARGE PLATELETS (NORMAL) 11/25/17 19:08 RBC Morph Micro Appear 1+ OVALOCYTES (NORMAL) 2+ MICROCYTOSIS (NORMAL) 2+ ANISOCYTOSIS (NORMAL) 1+ HYPOCHROMASIA (NORMAL) 1+ POLYCHROMASIA (NORMAL) 11/25/17 19:08 RBC Morph Micro Appear 1+ OVALOCYTES (NORMAL) 2+ MICROCYTOSIS (NORMAL) 2+ ANISOCYTOSIS (NORMAL) 1+ HYPOCHROMASIA (NORMAL) 1+ POLYCHROMASIA (NORMAL) 11/25/17 19:08 RBC Morph Micro Appear 1+ OVALOCYTES (NORMAL) 2+ MICROCYTOSIS (NORMAL) 2+ ANISOCYTOSIS (NORMAL) 1+ HYPOCHROMASIA (NORMAL) 1+ POLYCHROMASIA (NORMAL) 11/25/17 19:08 RBC Morph Micro Appear 1+ OVALOCYTES (NORMAL) 2+ MICROCYTOSIS (NORMAL) 2+ ANISOCYTOSIS (NORMAL) 1+ HYPOCHROMASIA (NORMAL) 1+ POLYCHROMASIA (NORMAL) 11/25/17 19:08 RBC Morph Micro Appear 1+ OVALOCYTES (NORMAL) 2+ MICROCYTOSIS (NORMAL) 2+ ANISOCYTOSIS (NORMAL) 1+ HYPOCHROMASIA (NORMAL) 1+ POLYCHROMASIA (NORMAL) 11/25/17 19:08 Sodium 134 mmol/L (135-145) L 11/25/17 19:38 Potassium 3.7 mmol/L (3.5-5.0) 11/25/17 19:38 Chloride 98 mmol/L (101-111) L 11/25/17 19:38 Carbon Dioxide 28 mmol/L (21-32) 11/25/17 19:38 Anion Gap 8.0 (6-13) 11/25/17 19:38 BUN 10 mg/dL (6-20) 11/25/17 19:38 Creatinine 0.5 mg/dL (0.4-1.0) 11/25/17 19:38 Estimated GFR (MDRD) 125 (>89) 11/25/17 19:38 Glucose 161 mg/dL (70-100) H 11/25/17 19:38 Glycated Hemoglobin 6.8 % (4.6-6.2) H 11/25/17 19:08 Estim Average Glucose 148 (70-100) H 11/25/17 19:08 Calcium 9.4 mg/dL (8.5-10.3) 11/25/17 19:38 Magnesium 1.7 mg/dL (1.7-2.8) 11/25/17 19:38 Total Bilirubin 0.4 mg/dL (0.2-1.0) 11/25/17 19:38 AST 19 IU/L (10-42) 11/25/17 19:38 ALT 17 IU/L (10-60) 11/25/17 19:38 Alkaline Phosphatase 114 IU/L (42-121) 11/25/17 19:38 Total Creatine Kinase 17 IU/L (22-269) L 11/25/17 19:38 Total Protein 7.2 g/dL (6.7-8.2) 11/25/17 19:38 Albumin 3.3 g/dL (3.2-5.5) 11/25/17 19:38 Globulin 3.9 g/dL (2.1-4.2) 11/25/17 19:38 Albumin/Globulin Ratio 0.8 (1.0-2.2) L 11/25/17 19:38 Lipase 60 U/L (22-51) H 11/25/17 19:38 - Procedures Procedures: Procedures ARTHROCENTESIS (08/24/14) PACKED CELL TRANSFUSION (08/24/14) RONALD OF KNEE REPLACEMENT, PATELLAR COMPONENT (05/02/14) RONALD OF TOTAL KNEE REPLACEMENT, TIBIAL INSERT (LINER) (05/02/14) TOTAL KNEE REPLACEMENT (08/08/14) VENOUS CATHETERIZATION NEC (08/24/14) ABX Reporting Has patient been on IV antibiotics over the past 48 hours?: No
[2017-11-26] MEDS ORDERED: prednisoLONE 1% OPHTH DROPS 75 DROPS/5 ML BOTTLE LEFTEYE SCH (14:00)
[2017-11-26] MEDS ORDERED: TIMOLOL 0.5% OPHTH DROPS EACHEYE SCH (14:00)
[2017-11-26] MEDS ORDERED: GLIMEPIRIDE 2 MG TABLET PO SCH (17:00)
[2017-11-26] MEDS ORDERED: FLUTICASONE NASAL SPRAY NAS SCH ×2 (21:00)
[2017-11-26] MEDS: prednisoLONE 1% OPHTH DROPS 75 DROPS/5 ML BOTTLE LEFTEYE SCH (21:16)
[2017-11-26] MEDS: TIMOLOL 0.5% OPHTH DROPS EACHEYE SCH (21:16)
[2017-11-27] MEDS: HYDROcod/ACETAM 7.5 MG/325 MG TABLET PO PRN ×3 (02:01→11:43)
[2017-11-27] MEDS: ALBUTEROL NEB 2.5 MG/3 ML INH PRN (02:57)
[2017-11-27] MEDS: POLYETHYLENE GLYCOL 3350 17 GM PACKET PO SCH ×2 (05:52→08:01)
[2017-11-27] MEDS ORDERED: BISACODYL 10 MG SUPP PR ONE ×2 (05:56→06:11)
[2017-11-27 06:11] LABS: % IRON SATURATION 2 % (20-50); IRON 13 ug/dL (28-170); TOTAL IRON BINDING CAPACITY 561 ug/dL (250-450); TRANSFERRIN 401 mg/dL (192-382)
[2017-11-27 06:27] LABS: FOLATE 1.72 ng/mL (5.90 - >24.8)
[2017-11-27] MEDS: METHOCARBAMOL 500 MG TABLET PO SCH (06:42)
[2017-11-27] MEDS: prednisoLONE 1% OPHTH DROPS 75 DROPS/5 ML BOTTLE LEFTEYE SCH (06:50)
[2017-11-27] MEDS: TIMOLOL 0.5% OPHTH DROPS EACHEYE SCH (06:51)
[2017-11-27 07:47] VITALS: BP 130/76
[2017-11-27] MEDS: FLUoxetine 10 MG CAPSULE PO SCH (08:00)
[2017-11-27] MEDS: ASPIRIN EC 325 MG TABLET PO SCH (08:00)
[2017-11-27] MEDS ORDERED: FERROUS SULFATE 325 MG TABLET PO SCH (08:00)
[2017-11-27] MEDS: METOPROLOL TARTRATE 50 MG TABLET PO SCH (08:00)
[2017-11-27] MEDS: guaiFENesin 600 MG TABLET PO SCH (08:00)
[2017-11-27] MEDS: NICOTINE 21 MG PATCH TOP SCH (08:01)
[2017-11-27] MEDS: predniSONE 20 MG TABLET PO SCH (08:01)
[2017-11-27] MEDS: CETIRIZINE 10 MG TABLET PO SCH (08:01)
[2017-11-27] MEDS: LIDOCAINE PATCH 5% TOP SCH (08:01)
[2017-11-27] MEDS: SODIUM CHLORIDE FLUSH 0.9% 10 ML SYRINGE IVP SCH (08:02)
[2017-11-27] MEDS: INSULIN ASPART 300 UNIT/3 ML PEN SUBQ SCH (08:02)
[2017-11-27] MEDS: metFORMIN 500 MG TABLET PO SCH (08:05)
[2017-11-27] MEDS ORDERED: SENNA 8.6 MG TABLET PO SCH (09:00)
[2017-11-27] MEDS ORDERED: CHOLECALCIFEROL 1,000 UNIT TABLET PO SCH (10:00)
[2017-11-27] MEDS ORDERED: FOLIC ACID 1 MG TABLET PO SCH (10:00)
[2017-11-27] MEDS ORDERED: CYANOCOBALAMIN 500 MCG TABLET PO SCH (10:00)
[2017-11-27] MEDS ORDERED: CALCIUM CARBONATE CHEW 500 MG TABLET PO SCH (10:00)
[2017-11-27] MEDS ORDERED: MAGNESIUM CITRATE 296 ML BOTTLE PO PRN (10:27)
--- NOTE | 2017-11-27 11:12 | Discharge Plan ---
Discharge Plan Disposition: Home, Self Care Condition: Stable Prescriptions: Methocarbamol [Robaxin] 500 mg PO Q6HR PRN #25 tablet PRN Reason: Spasms Calcium Carbonate [Tums (Calcium Carbonate 500mg)] 500 mg PO DAILY #30 tablet Folic Acid 1 mg PO DAILY #30 tablet Hydrocodone/Acetaminophen [Vicodin Es 7.5-300 mg Tablet] 1 each PO BID PRN #14 tablet PRN Reason: Severe Pain Diet: Diabetic Activity Restrictions: Activity as Tolerated Shower Restrictions: No Additional Instructions or Follow Up instructions: Resume your pre-hospital medications. Prescriptions for Robaxin and Vicodin have been ordered for you and new Calcium and Folate (because you are deficient in those). See your PCP for further management and refills of prescriptions. No Smoking: If you smoke, Please STOP! Call for help. Follow-up with: GIRMA LOPEZ MD [Primary Care Provider] -
--- NOTE | 2017-11-30 08:46 | DISCHARGE SUMMARY ---
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 The patient underwent cataract surgery 9 days before admission and then 3 days before admission and believes that lying down for the procedures induced back spasm. She came to the Emergency Room for this and was diagnosed with back pain, treated and sent home. She was unable to fill prescriptions that were given to her, she did lie down and slept, woke up and was still very tired and weak, slid to the floor and then dragged herself to the kitchen to phone for help. She was on the floor for a few hours before friends came looking for her and they called EMS. She had evaluation in the Emergency Room with complaints of continued back pain , nonradiating to the legs. CT of the back was done that showed no fracture, mild stenosis at 2 levels and she was admitted for pain management. HOSPITAL COURSE AND DISCHARGE DIAGNOSES 1. Intractable back pain. The patient required IV narcotics which were then transitioned to an oral medication of her choice for pain control, which was Vicodin. She also requested Robaxin, which was ordered and helped. The patient was able to ambulate independently before discharge. 2. Controlled diabetes. The patient was on a diabetic diet and sliding scale insulin coverage. There was no evidence of DKA. Her A1c was 6.8, indicating good control as an outpatient. 3. Depression. The patient was kept on her management for anxiety and depression while here. 4. Anemia. The patient was noted to have marked anemia with hemoglobin of 10.3 and very low MCV of 64. She underwent lab testing that showed low iron at 13, high TIBC at 561, low saturation at 2% and was to get iron replacements; however, she reported that multiple preparations were not tolerated by her, she has had outpatient management with IV infusions. She was discharged with a folate prescription for a low folate level of 1.72 and advised further management for her iron deficiency anemia as an outpatient. 5. IBS history. She had no symptoms while here, but was possibly constipated, she thought. LABORATORY AND IMAGING: Reviewed and summarized above. ALLERGIES 1. DROPERIDOL. 2. IBUPROFEN. 3. PEANUTS. 4. SHELLFISH. 5. STATINS. 6. AMOXICILLIN. 7. CEFAZOLIN. 8. CLINDAMYCIN. 9. CYCLOBENZAPRINE. 10. ERYTHROMYCIN. 11. POTASSIUM. 12. AUGMENTIN. 13. TORADOL. 14. DULOXETINE. 15. ENBREL. 16. METHOTREXATE. 17. NONSTEROIDALS. 18. PROCHLORPERAZINE. 19 PSEUDOEPHEDRINE. 20. SUMATRIPTAN. 21. DOXYCYCLINE. 22. GABAPENTIN. 23. LATEX. 24. MORPHINE. 25. COMPAZINE. 26. PHENERGAN. 27. TAPE. MEDICATIONS AT THE TIME OF DISCHARGE 1. Robaxin 500 mg q.6 h. p.r.n. back spasm. 2. Aspirin 2 tablets p.o. daily. 3. Tums for calcium replacement 500 mg daily. 4. Zyrtec 10 mg daily. 5. Nexium 40 mg daily. 6. Prozac 20 mg daily. 7. Flonase nasal spray. 8. Folic acid 1 mg daily. 9. Lasix 40 mg daily. 10. Glimepiride 1 mg daily. 11. Mucinex 600 mg b.i.d. 12. Tylenol with codeine p.r.n. 13. Lidocaine patch topically daily. 14. Metformin 500 mg b.i.d. 15. Metoprolol tartrate 50 mg b.i.d. 16. Nystatin topical as needed. 17. Potassium chloride 20 mEq daily. 18. Several eye drops for her recent cataract surgery. 19. Trazodone 50 mg q.p.m. PHYSICAL EXAMINATION AT DISCHARGE VITAL SIGNS: Blood pressure 130/76, pulse of 64 in sinus rhythm, afebrile, room air saturation 95%. HEENT: Exam reveals exophthalmus and cushingoid appearance. NECK: Without JVD or carotid bruits. CHEST: Diminished breath sounds and distant. Heart sounds distant. ABDOMEN: Obese with pannus. EXTREMITIES: Edema 1+. Venous stasis changes and various scabs with different stages of healing. NEUROLOGIC: Intact. FOLLOWUP: With her PCP, Belkis Lutz, in 1-2 weeks. CODE STATUS: DNR. TIME REQUIRED TO COMPLETE THIS ENTIRE DISCHARGE: Thirty minutes. cc: Giulia Lutz MD TD: 11/29/2017 11:03 MTDTristin
== END 2017-11-27 12:36 | disposition home or self-care (01) ==
LOC: EDUNIT# → SUPCPDRO 18:24 → ED 18:24 → MS2 23:09
PROVIDERS: ADMIT Specialist; ATTEND Internal Medicine
DX: M62.830 Muscle spasm of back (principal); M25.552 Pain in left hip; M51.16 Intervertebral disc disorders with radiculopathy, lumbar region; M48.061 Spinal stenosis, lumbar region without neurogenic claudication; M47.9 Spondylosis, unspecified; G89.29 Other chronic pain; D50.9 Iron deficiency anemia, unspecified; M02.30 Reiter's disease, unspecified site; F42.4 Excoriation (skin-picking) disorder; E09.65 Drug or chemical induced diabetes mellitus with hyperglycemia; E24.2 Drug-induced Cushing's syndrome; T38.0X5A Adverse effect of glucocorticoids and synthetic analogues, initial encounter; Y92.009 Unspecified place in unspecified non-institutional (private) residence as the place of occurrence of the external cause; E66.01 Morbid (severe) obesity due to excess calories; Z68.41 Body mass index [BMI] 40.0-44.9, adult; L97.815 Non-pressure chronic ulcer of other part of right lower leg with muscle involvement without evidence of necrosis; F33.41 Major depressive disorder, recurrent, in partial remission; F17.213 Nicotine dependence, cigarettes, with withdrawal; I27.20 Pulmonary hypertension, unspecified; K58.0 Irritable bowel syndrome with diarrhea; F41.9 Anxiety disorder, unspecified; E28.2 Polycystic ovarian syndrome; G90.2 Horner's syndrome; I87.8 Other specified disorders of veins; I11.0 Hypertensive heart disease with heart failure; I50.9 Heart failure, unspecified; K21.9 Gastro-esophageal reflux disease without esophagitis; M19.90 Unspecified osteoarthritis, unspecified site; Z66 Do not resuscitate; Z79.82 Long term (current) use of aspirin; Z79.84 Long term (current) use of oral hypoglycemic drugs; Z98.42 Cataract extraction status, left eye; Z98.41 Cataract extraction status, right eye; Z86.19 Personal history of other infectious and parasitic diseases; Z79.899 Other long term (current) drug therapy; Z79.891 Long term (current) use of opiate analgesic; Z59.9 Problem related to housing and economic circumstances, unspecified; Z60.2 Problems related to living alone
CPT/HCPCS: 36415; 72131; 80053; 82550; 82607; 82746; 83036; 83540; 83690; 83735; 84466; 85025; 94640; 96361; 96374; 96375; 96376; 97162; 97530; 99283; 99284; A9270; G0378; G8978; G8979; J1170; J7512; Q0162; 82270

== ENCOUNTER 2018-02-10 20:19 | Outpatient (CLI) | payer MEDICARE ==
--- NOTE | 2018-02-10 22:02 | Ultrasound Report ---
Reason: LEFT LOWER QUADRANT PAIN Procedure Date: 02/10/2018 Accession Number: [id number] / [id number] Procedure: US - Abdomen Complete CPT Code: FULL RESULT: EXAM: ABDOMEN ULTRASOUND EXAM DATE: 02/10/2018 09:02 PM. CLINICAL HISTORY: Left lower quadrant pain. COMPARISON: Right upper quadrant ultrasound 11/18/2016. CT of the abdomen and pelvis with contrast 02/05/2017. CT of the abdomen and pelvis without contrast 07/28/2017. TECHNIQUE: Real-time scanning was performed with static images obtained. FINDINGS: Liver: Mildly increased hepatic echogenicity without focal lesion. Mildly enlarged 18.7 cm. Main portal vein flow: Hepatopetal. Gallbladder: Surgically absent. Biliary System: Common bile duct measures 5.3 mm. No intrahepatic or extrahepatic ductal dilatation. Pancreas: Visualized portion is unremarkable. Kidneys: Right: 11.7 cm longitudinally. Normal. No contour-deforming mass, stones, or hydronephrosis. Left: 11.8 cm longitudinally. Normal. No contour-deforming mass, stones, or hydronephrosis. Spleen: 10.5 cm. Normal in size and echotexture. Aorta and Inferior Vena Cava: Distal aorta not visualized. Otherwise unremarkable with the exception of minimal atherosclerosis. Other: None. IMPRESSION: 1. No sonographic evidence of acute intra-abdominal abnormality. 2. Mild hepatomegaly with findings suggestive of mild hepatic steatosis. RADIA
--- NOTE | 2018-02-11 00:12 | Ultrasound Report ---
Reason: LEFT LOWER QUADRANT PAIN Procedure Date: 02/10/2018 Accession Number: [id number] / [id number] Procedure: US - Pelvic w/Transvaginal CPT Code: FULL RESULT: EXAM: PELVIC ULTRASOUND EXAM DATE: 02/10/2018 09:06 PM. CLINICAL HISTORY: LEFT LOWER QUADRANT PAIN. COMPARISON: CT 07/28/2017. TECHNIQUE: Realtime transabdominal pelvic scan performed to identify the uterus and adnexa and as an overview of other pelvic structures, with static image documentation. The patient was unable to tolerate transvaginal scanning. FINDINGS: The patient is status post hysterectomy and oophorectomies. No adnexal mass or free fluid is identified. Free Fluid: None. Other: None. IMPRESSION: Postoperative changes. No evidence of adnexal mass or free fluid. RADIA
== END 2018-02-10 20:20 | disposition home or self-care (01) ==
LOC: DI 20:19
PROVIDERS: ATTEND Physician Assistant
DX: R16.0 Hepatomegaly, not elsewhere classified (principal); R10.32 Left lower quadrant pain; Z90.710 Acquired absence of both cervix and uterus; Z90.722 Acquired absence of ovaries, bilateral
CPT/HCPCS: 76700; 76830; 76856

== ENCOUNTER 2018-03-05 15:46 | Outpatient (CLI) | payer MEDICARE ==
--- NOTE | 2018-03-06 08:51 | Ultrasound Report ---
Reason: PARTIAL RETINAL ARTERY OCCLUSION, LEFT EYE Procedure Date: 03/05/2018 Accession Number: [id number] / [id number] Procedure: US - Carotid Doppler Complete CPT Code: FULL RESULT: EXAM: BILATERAL CAROTID AND VERTEBRAL ARTERY DUPLEX DOPPLER ULTRASOUND: EXAM DATE: 03/05/2018 05:36 PM CLINICAL HISTORY: Partial retinal artery occlusion, left eye. COMPARISON: None. TECHNIQUE: Grayscale imaging, color Doppler, and duplex spectral Doppler were used to evaluate the carotid and vertebral arteries bilaterally. Static images were obtained. FINDINGS: Right carotid system: Small amount of partially calcified plaque in the carotid bulb and proximal internal carotid artery without elevated velocities or ratios indicating less than 50% stenosis. Left carotid system: Small amount of partially calcified plaque in the carotid bulb and proximal internal carotid artery without elevated velocities or ratios indicating less than 50% stenosis. Normal antegrade flow is present in bilateral vertebral arteries. VELOCITIES (cm/sec): Right CCA mid: PSV 72.8 cm/sec CCA dist: PSV 59.6 cm/sec ICA prox: PSV 68.2 cm/sec, EDV 19.2 cm/sec ICA mid: PSV 63.1 cm/sec, EDV 13.2 cm/sec ICA dist: PSV 68.4 cm/sec, EDV 19.9 cm/sec ECA: PSV 87.3 cm/sec Vert: PSV 49.0 cm/sec ICA/CCA: 0.94 Left CCA mid: PSV 83.6 cm/sec CCA dist: PSV 74.5 cm/sec ICA prox: PSV 81.2 cm/sec, EDV 16.2 cm/sec ICA mid: PSV 95.8 cm/sec, EDV 26.9 cm/sec ICA dist: PSV 80.8 cm/sec, EDV 23.4 cm/sec ECA: PSV 65.4 cm/sec Vert: PSV 47.3 cm/sec ICA/CCA: 1.14 IMPRESSION: 1. Small amount of partially calcified plaque in the bilateral carotid bulbs and proximal internal carotid arteries with less than 50% stenosis. 2. Normal antegrade flow is present in bilateral vertebral arteries. RADIA
== END 2018-03-05 15:47 | disposition home or self-care (01) ==
LOC: DI 15:46
PROVIDERS: ATTEND Ophthalmology
DX: H34.212 Partial retinal artery occlusion, left eye (principal)
CPT/HCPCS: 93880

== ENCOUNTER 2018-03-06 06:36 | Outpatient (CLI) | payer MEDICARE | END 2018-03-06 06:37 | disposition critical access hospital (66) | LOC: EMS 06:36 | PROVIDERS: ATTEND Surgery | DX: R10.9 Unspecified abdominal pain (principal); R11.0 Nausea | CPT/HCPCS: A0425; A0429 ==

== ENCOUNTER 2018-03-06 06:48 | Emergency (ER) | payer MEDICARE ==
[2018-03-06] MEDS ORDERED: SODIUM CHLORIDE 0.9% 1,000 ML IV ONE (07:19)
[2018-03-06] MEDS ORDERED: ACETAMINOPHEN 1,000 MG/100 ML 100 ML IV STA (07:21)
--- NOTE | 2018-03-06 07:24 | ED Physician Documentation ---
History of Present Illness - Stated complaint Stated Complaint: ABD PX - Chief complaint Chief Complaint: Abd Pain - Additonal information Additional information: hx from pt 62 female chronic (at least 2 years ) RLQ pain pshx appy lei hyst bso 20+ laparoscopies last colonoscopy [address] has had CT scan and sono due to see surgeon this week worse today after being positioned for carotid doppler yesterday also hx IBS no fever no NV stools firmer than normal s blood no urinary sx Review of Systems Constitutional: denies: Fever, Chills Cardiac: denies: Chest pain / pressure Respiratory: denies: Dyspnea GI: reports: Abdominal Pain, Constipation. denies: Nausea, Vomiting, Diarrhea, Bloody / black stool : denies: Dysuria Endocrine: denies: Easy bruising / bleeding Immunocompromised: denies: Immunocompromised PD PAST MEDICAL HISTORY - Past Medical History Cardiovascular: Congestive heart failure, Hypertension Respiratory: Other Endocrine/Autoimmune: Type 2 diabetes, Other GI: GERD, Colon polyps, Chronic diarrhea, Other [employer]ENTICE: Ovarian cysts, Other : Incontinence HEENT: Chronic vision loss, Chronic sinusitis Psych: Depression, Anxiety, Obsessive compulsive disorder Musculoskeletal: Osteoarthritis Derm: Other - Past Surgical History Past Surgical History: Yes General: Cholecystectomy, Appendectomy, Bowel surgery, Other Ortho: Knee replacement /[employer]PRENTICE: 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, Oophrectomy Cardiovascular: Cardiac catheterization HEENT: Tonsil/Adenoidectomy - Present Medications Home Medications: Ambulatory Orders Medication Instructions Recorded Confirmed Aspirin [Aspirin EC] 650 mg PO 0800,1200,1600,2000 05/29/13 02/08/18 FLUoxetine [PROzac] 20 mg PO DAILY 05/29/13 02/08/18 Metoprolol Tartrate 50 mg PO BID 05/29/13 02/08/18 Potassium Chloride 20 meq PO DAILY PRN 05/29/13 02/08/18 Glimepiride 1 mg PO QDBREAKFAST 03/03/17 02/08/18 guaiFENesin [Mucinex] 600 mg PO BID 03/03/17 02/08/18 metFORMIN [Glucophage] 500 mg PO BIDWM 03/03/17 02/08/18 Lidocaine Patch 5% [Lidoderm Patch] 1 each TOP DAILY #14 patch 11/25/17 02/08/18 Cetirizine HCl/Pseudoephedrine 1 tab PO BID 11/26/17 02/08/18 [Cetirizine-Pse ER 5-120 mg Tab] Fluticasone [Flonase] 2 sprays MATT QPM 11/26/17 02/08/18 Pramipexole Di-HCl [Pramipexole 0.25 - 0.5 mg PO QPM PRN 11/26/17 02/08/18 Dihydrochloride] Propylene Glycol/Peg 400/Pf 1 drops EACHEYE QID PRN 11/26/17 02/08/18 [Systane 0.3-0.4% Eye Drop] Timolol 0.5% Ophth Drops [Timoptic 1 drops EACHEYE TID 11/26/17 02/08/18 0.5% Ophth Drops] Trazodone HCl 50 mg PO QPM PRN 11/26/17 02/08/18 prednisoLONE 1% OPHTH DROPS [Pred 1 drops LEFTEYE TID 11/26/17 02/08/18 Forte 1% Ophth Drops] Calcium Carbonate [Tums (Calcium 500 mg PO DAILY #30 tablet 11/27/17 02/08/18 Carbonate 500mg)] Cetirizine [ZyrTEC] 10 mg PO DAILY tablet 11/27/17 02/08/18 Folic Acid 1 mg PO DAILY #30 tablet 11/27/17 02/08/18 Hydrocodone/Acetaminophen [Vicodin 1 each PO BID PRN #14 tablet 11/27/17 02/08/18 Es 7.5-300 mg Tablet] Methocarbamol [Robaxin] 500 mg PO Q6HR PRN #25 tablet 11/27/17 02/08/18 Nystatin [Nystop] 1 applic TOP QID PRN bottle 11/27/17 02/08/18 predniSONE [Deltasone] 60 mg PO DAILY tablet 11/27/17 02/08/18 buPROPion [Wellbutrin Sr] 100 mg PO BID 02/08/18 02/08/18 - Allergies Allergies/Adverse Reactions: Allergies Allergy/AdvReac Type Severity Reaction Status Date / Time droperidol [From Inapsine] Allergy Severe EPS Verified 03/06/18 06:55 ibuprofen [From Motrin] Allergy Severe Anaphylaxis Verified 03/06/18 06:55 peanut Allergy Severe Anaphylaxis Verified 03/06/18 06:55 shellfish derived Allergy Severe Anaphylaxis Verified 03/06/18 06:55 Splhdpk-Viz-Ngg Reductase Allergy Severe muscle pain Verified 03/06/18 06:55 Inhibitor amoxicillin [Amoxicillin] Allergy Intermediate Hives Verified 03/06/18 06:55 cefazolin Allergy Intermediate Hives Verified 03/06/18 06:55 Cephalosporins Allergy Intermediate Hives Verified 03/06/18 06:55 clindamycin Allergy Intermediate Hives Verified 03/06/18 06:55 cyclobenzaprine Allergy Intermediate Hives/night Verified 03/06/18 06:55 [Cyclobenzaprine] castaneda erythromycin base Allergy Intermediate Hives Verified 03/06/18 06:55 [Erythromycin Base] potassium clavulanate * Allergy Intermediate Hives Verified 03/06/18 06:55 [From Augmentin] ketorolac tromethamine * Allergy Anaphylaxis Verified 03/06/18 06:55 [From Toradol] duloxetine AdvReac Severe Suicidal Verified 03/06/18 06:55 etanercept [From Enbrel] AdvReac Severe Nausea/vomm Verified 03/06/18 06:55 iting/cramp s methotrexate AdvReac Severe N/V/Cramps Verified 03/06/18 06:55 NSAIDS (Non-Steroidal AdvReac Severe N/V/Cramps Verified 03/06/18 06:55 Anti-Inflamma prochlorperazine AdvReac Severe EPS Verified 03/06/18 06:55 pseudoephedrine AdvReac Severe Tachycardia Verified 03/06/18 06:55 sumatriptan AdvReac Severe Widened QRS Verified 03/06/18 06:55 doxycycline AdvReac Intermediate Hives Verified 03/06/18 06:55 gabapentin AdvReac Intermediate Gait Verified 03/06/18 06:55 disturbance latex AdvReac Intermediate Sensitivity Verified 03/06/18 06:55 morphine AdvReac Unknown Verified 03/06/18 06:55 prochlorperazine edisylate * AdvReac Unknown Verified 03/06/18 06:55 [From Compazine] prochlorperazine maleate * AdvReac Unknown Verified 03/06/18 06:55 [From Compazine] promethazine [From Phenergan] AdvReac Hallucinati Verified 03/06/18 06:55 ons Tape AdvReac Severe Blisters Uncoded 03/06/18 06:55 - Social History Does the pt smoke?: Yes Smoking Status: Heavy tobacco smoker Does the pt drink ETOH?: Yes Does the pt have substance abuse?: No - Immunizations Immunizations are current?: Yes - POLST Patient has POLST: Yes POLST Status: DNR PD ED PE NORMAL - Vitals Vital signs reviewed: Yes - Cardiac Cardiac: RRR - Respiratory Respiratory: No respiratory distress - Abdomen Abdomen: Soft, Other (no sig TTP pn exam, no pulsatile mass, no appreciable hernia) - Female Female : Deferred (hyst) - Derm Derm: Normal color - Neuro Neuro: Alert and oriented X 3 Results - Vitals Vitals: Vital Signs - 24 hr 03/06/18 06:49 Temperature 36.1 C L Heart Rate 73 Respiratory 20 Rate Blood Pressure 158/95 H O2 Saturation 98 Oxygen O2 Source [Without Activity] Room air O2 Source Room air - Labs Labs: Laboratory Tests 03/06/18 03/06/18 03/06/18 07:48 07:50 07:50 WBC 10.9 H RBC 5.25 Hgb 13.2 Hct 40.4 MCV 76.8 L MCH 25.1 L MCHC 32.7 RDW 29.8 H Plt Count 348 MPV 8.3 Neut # (Auto) 8.4 H Lymph # (Auto) 1.7 [place] # (Auto) 0.7 Eos # (Auto) 0.1 Baso # (Auto) 0.1 Absolute Nucleated RBC 0.00 Nucleated RBC % 0.0 Manual Slide Review Indicated RBC Morph Micro Appear 1+ MICROCYTOSIS Sodium 136 Potassium 3.9 Chloride 96 L Carbon Dioxide 29 Anion Gap 11.0 BUN 13 Creatinine 0.7 Estimated GFR (MDRD) 85 L Glucose 74 Calcium 9.3 Magnesium 1.0 L* Total Bilirubin 0.4 AST 19 ALT 18 Alkaline Phosphatase 95 Total Protein 6.7 Albumin 3.8 Globulin 2.9 Albumin/Globulin Ratio 1.3 Lipase 39 Urine Color LIGHT YELLOW Urine Clarity CLEAR Urine pH 6.0 Ur Specific [place] <=1.005 Urine Protein NEGATIVE Urine Glucose (UA) NEGATIVE Urine Ketones NEGATIVE Urine Occult Blood NEGATIVE Urine Nitrite NEGATIVE Urine Bilirubin NEGATIVE Urine Urobilinogen 0.2 (NORMAL) Ur Leukocyte Esterase NEGATIVE Ur Microscopic Review NOT INDICATED Urine Culture Comments NOT INDICATED - Rads (name of study) CTA AP Radiology: See rad report (no acute, fat containing ventral hernia, T12 compression fx) PD MEDICAL DECISION MAKING - Sepsis Event Vital Signs: Vital Signs - 24 hr 03/06/18 06:49 Temperature 36.1 C L Heart Rate 73 Respiratory 20 Rate Blood Pressure 158/95 H O2 Saturation 98 Oxygen O2 Source [Without Activity] Room air O2 Source Room air Departure - Departure Disposition: Home, Self Care Clinical Impression: Hypomagnesemia Abdominal pain Qualifiers: Abdominal location: right lower quadrant Qualified Code(s): R10.31 - Right lower quadrant pain Condition: Good Instructions: ED Abdominal Pain Unkn Cause Follow-Up: GIRMA LOPEZ MD [Primary Care Provider] - Sada Chase MD [Provider Admit Priv/Credential] - Comments: The CT scan showed a ventral hernia - but only containing fat, not bowel, and not where your pain is. Also the radiologist notes that at some point you have suffered a T12 compression fracture Your labs look fine except for the low magnesium again - which was replaced. With your ongoing pain and change in bowel habit you should get set up for a colonoscopy - please discuss this with Dr Chase I am not sure what has been causing this pain for the last few years, but given the reassuring work up in the ER, I think it is safe for you to go home. Continue your vicodin as needed for the pain
[2018-03-06] MEDS ORDERED: IOPAMIDOL-300 100 ML VIAL ONE (07:39)
[2018-03-06 07:52] LABS: BILIRUBIN,URINE NEGATIVE (NEGATIVE); GLUCOSE, URINE (UA) NEGATIVE (NEGATIVE); KETONES,URINE (UA) NEGATIVE (NEGATIVE); LEUKOCYTE ESTERASE, URINE NEGATIVE (NEGATIVE); NITRITE,URINE NEGATIVE (NEGATIVE); OCCULT BLOOD,URINE NEGATIVE (NEGATIVE); PROTEIN,URINE NEGATIVE (NEGATIVE); UROBILINOGEN,URINE 0.2 (NORMAL) E.U./dL (NORMAL)
[2018-03-06 07:55] LABS: CLARITY,URINE CLEAR (CLEAR)
[2018-03-06 08:02] LABS: BASOPHILS # (AUTO) 0.1 10^3/uL (0.0-0.1); BASOPHILS % (AUTO) 0.5 %; EOSINOPHILS # (AUTO) 0.1 10^3/uL (0.0-0.7); EOSINOPHILS % (AUTO) 0.6 %; HGB - HEMOGLOBIN 13.2 g/dL (12.0-16.0); LYMPHOCYTES # (AUTO) 1.7 10^3/uL (1.5-3.5); LYMPHOCYTES % (AUTO) 15.7 %; MEAN CORPUSCULAR HEMOGLOBIN 25.1 pg (27.0-31.0); MEAN CORPUSCULAR HGB CONC 32.7 g/dL (32.0-36.0); MEAN CORPUSCULAR VOLUME 76.8 fL (81.0-99.0); MEAN PLATELET VOLUME 8.3 fL (7.9-10.8); MONOCYTES # (AUTO) 0.7 10^3/uL (0.0-1.0); MONOCYTES % (AUTO) 6.3 %; NEUTROPHILS # (AUTO) 8.4 10^3/uL (1.5-6.6); NEUTROPHILS % (AUTO) 76.9 %; PLT - PLATELET COUNT 348 10^3/uL (130-450); RED BLOOD COUNT 5.25 10^6/uL (4.20-5.40); RED CELL DISTRIBUTION WIDTH 29.8 % (12.0-15.0); WHITE BLOOD COUNT 10.9 x10^3/uL (4.8-10.8)
[2018-03-06 08:17] LABS: ALBUMIN 3.8 g/dL (3.2-5.5); ALBUMIN/GLOBULIN RATIO 1.3 (1.0-2.2); BILIRUBIN,TOTAL 0.4 mg/dL (0.2-1.0); CALCIUM 9.3 mg/dL (8.5-10.3); CREATININE 0.7 mg/dL (0.4-1.0); TOTAL PROTEIN 6.7 g/dL (6.7-8.2)
[2018-03-06] MEDS ORDERED: IOPAMIDOL-300 100 ML VIAL IVP ONE (08:53)
[2018-03-06] MEDS ORDERED: MAGNESIUM SULFATE 2 GRAM 2 GM/50 ML BAG IV ONE (09:09)
--- NOTE | 2018-03-06 09:57 | CT Report ---
Reason: abd pain Procedure Date: 03/06/2018 Accession Number: [id number] / [id number] Procedure: CT - Abdomen/Pelvis Angio CPT Code: FULL RESULT: EXAM: CT ANGIOGRAM ABDOMEN AND PELVIS WITH CONTRAST EXAM DATE: 03/06/2018 08:52 AM. CLINICAL HISTORY: Abd pain. COMPARISONS: Abdominal CT dated 07/28/2017. TECHNIQUE: Routine helical CT angiogram imaging was performed through the abdomen and pelvis in the arterial phase. IV contrast: 100 mL of Isovue-300. Enteric contrast: No. Reconstructions: Coronal, sagittal, and 3D MIP reconstructions. In accordance with CT protocol optimization, one or more of the following dose reduction techniques were utilized for this exam: automated exposure control, adjustment of mA and/or KV based on patient size, or use of iterative reconstructive technique. FINDINGS: Vasculature: Normal. No aneurysm, dissection, or significant atherosclerotic disease of the abdominal aorta and iliac arteries. The visualized mesenteric and solid organ vascular structures are also within normal limits. Lung Bases: Normal. Abdominal Solid Organs: The gallbladder is absent.. The liver, spleen, pancreas, adrenal glands, and kidneys are normal in size and demonstrate no masses or abnormal enhancement. Peritoneal Cavity: Normal. No free fluid, free air, or acute inflammatory process. Pelvic Organs: Normal. The bladder and visualized pelvic organs are within normal limits. Bones: Severe anterior wedging of the T12 vertebral body which is new from the prior examination. Other: Fat-containing ventral hernia measuring 15 mm at the neck. IMPRESSION: 1. No bowel obstruction or inflammatory process associated with the bowel. 2. Fat-containing ventral hernia. 3. Severe anterior wedging of the T12 vertebral body which is new from the prior examination. RADIA
[2018-03-06 11:49] VITALS: BP 150/90
== END 2018-03-06 11:49 | disposition home or self-care (01) ==
LOC: EDUNIT# → ED 06:48
DX: R10.31 Right lower quadrant pain (principal); E83.42 Hypomagnesemia; K43.9 Ventral hernia without obstruction or gangrene; I11.0 Hypertensive heart disease with heart failure; I50.9 Heart failure, unspecified; E11.9 Type 2 diabetes mellitus without complications; F17.200 Nicotine dependence, unspecified, uncomplicated; Z79.84 Long term (current) use of oral hypoglycemic drugs
CPT/HCPCS: 36415; 74174; 80053; 81003; 83690; 83735; 85025; 96361; 96365; 96367; 99284; J0131; Q9967; 81001; 87086

== ENCOUNTER 2018-03-15 08:00 | Outpatient (CLI) | payer MEDICARE ==
[2018-03-15 20:06] LABS: % IRON SATURATION 61 % (20-50); IRON 235 ug/dL (28-170); TOTAL IRON BINDING CAPACITY 382 ug/dL (250-450); TRANSFERRIN 273 mg/dL (192-382)
== END 2018-03-15 08:01 | disposition home or self-care (01) ==
LOC: LAB.R 08:00
PROVIDERS: ATTEND Internal Medicine
DX: S22.080K Wedge compression fracture of T11-T12 vertebra, subsequent encounter for fracture with nonunion (principal); D50.9 Iron deficiency anemia, unspecified
CPT/HCPCS: 83540; 84466

== ENCOUNTER 2018-03-17 08:00 | Outpatient (CLI) | payer MEDICARE ==
[2018-03-19 23:48] LABS: ALBUMIN 3.3 g/dL (3.8-4.8); ALPHA 1 GLOBULIN 0.3 g/dL (0.2-0.3); ALPHA 2 GLOBULIN 0.8 g/dL (0.5-0.9); BETA 1 GLOBULIN 0.5 g/dL (0.4-0.6); BETA 2 GLOBULIN 0.3 g/dL (0.2-0.5); GAMMA GLOBULIN 0.4 g/dL (0.8-1.7)
[2018-03-20 14:27] LABS: ALBUMIN URINE 61 %; ALPHA 2 GLOBULINS URINE 14 %; ALPHA-1 GLOBULINS URINE 5 %; BETA GLOBULINS URINE 14 %; GAMMA GLOBULINS URINE 6 %; TOTAL VOLUME UR PEP 1200 mL; UR PROTEIN/CREATININE RATIO 481 mg/g creat (<115)
== END 2018-03-17 08:01 | disposition home or self-care (01) ==
LOC: LAB.R 08:00
PROVIDERS: ATTEND Internal Medicine
DX: D50.9 Iron deficiency anemia, unspecified (principal); S22.080K Wedge compression fracture of T11-T12 vertebra, subsequent encounter for fracture with nonunion
CPT/HCPCS: 82570; 84155; 84156; 84165; 84166; 86335

== ENCOUNTER 2018-08-09 08:00 | Outpatient (CLI) | payer MEDICARE ==
[2018-08-09 11:54] LABS: BASOPHILS # (AUTO) 0.1 10^3/uL (0.0-0.1); BASOPHILS % (AUTO) 0.8 %; EOSINOPHILS # (AUTO) 0.1 10^3/uL (0.0-0.7); EOSINOPHILS % (AUTO) 1.6 %; HGB - HEMOGLOBIN 12.6 g/dL (12.0-16.0); LYMPHOCYTES # (AUTO) 1.8 10^3/uL (1.5-3.5); LYMPHOCYTES % (AUTO) 18.6 %; MEAN CORPUSCULAR HGB CONC 32.3 g/dL (32.0-36.0); MEAN CORPUSCULAR VOLUME 83.7 fL (81.0-99.0); MEAN PLATELET VOLUME 7.2 fL (7.9-10.8); MONOCYTES # (AUTO) 0.8 10^3/uL (0.0-1.0); MONOCYTES % (AUTO) 8.2 %; NEUTROPHILS # (AUTO) 6.8 10^3/uL (1.5-6.6); NEUTROPHILS % (AUTO) 70.8 %; PLT - PLATELET COUNT 413 10^3/uL (130-450); RED BLOOD COUNT 4.68 10^6/uL (4.20-5.40); RED CELL DISTRIBUTION WIDTH 17.4 % (12.0-15.0); WHITE BLOOD COUNT 9.6 x10^3/uL (4.8-10.8)
[2018-08-09 12:11] LABS: CRP - C-REACTIVE PROTEIN 4.5 mg/dL (0-1.0)
== END 2018-08-09 23:59 | disposition home or self-care (01) ==
LOC: LAB.R 08:00
PROVIDERS: ATTEND Internal Medicine
DX: D50.9 Iron deficiency anemia, unspecified (principal)
CPT/HCPCS: 82728; 83540; 84466; 85025; 86140

== ENCOUNTER 2018-09-28 13:09 | Outpatient (CLI) | payer MEDICARE | END 2018-09-28 13:10 | disposition critical access hospital (66) | LOC: EMS 13:09 | PROVIDERS: ATTEND Surgery | DX: R07.9 Chest pain, unspecified (principal) | CPT/HCPCS: A0425; A0429 ==

== ENCOUNTER 2018-09-28 13:22 | Emergency (ER) | payer MEDICARE ==
[2018-09-28] MEDS ORDERED: ONDANSETRON ODT 4 MG TABLET TL STA (13:52)
[2018-09-28] MEDS ORDERED: DEXAMETHASONE 10 MG/ML VIAL PO STA (13:52)
[2018-09-28] MEDS ORDERED: CHERRY SYRUP 10 ML UDC PO ONE (13:52)
[2018-09-28] MEDS ORDERED: HYDROmorphone 1 MG/ML CARPUJECT IM STA (13:52)
--- NOTE | 2018-09-28 15:17 | XRAY Report ---
Reason: right lower rib pain Procedure Date: 09/28/2018 Accession Number: [id number] / [id number] Procedure: XR - Ribs w/PA Chest RT CPT Code: FULL RESULT: EXAM: RIGHT RIB RADIOGRAPHY EXAM DATE: 09/28/2018 02:32 PM. CLINICAL HISTORY: Right lower rib pain. COMPARISON: CHEST 2 VIEW 10/30/2017 3:22 PM. TECHNIQUE: 1 view of the chest and 2 views of the ribs. FINDINGS: Bones: No obvious rib fracture allowing for overlying soft tissues. Lungs: Minimal bilateral basilar atelectasis with possible tiny associated bilateral pleural effusions. No evidence of pneumothorax. Mediastinum: Heart and mediastinal contours are unremarkable. Other: Left subclavian tunneled chest wall port noted with appropriate catheter tip position. IMPRESSION: 1. Hypoventilatory chest. No evidence pneumothorax. 2. Suboptimal evaluation of ribs due to overlying soft tissues, but no obvious fracture. RADIA
[2018-09-28 15:40] VITALS: BP 131/61
--- NOTE | 2018-09-28 15:55 | ED Physician Documentation ---
PD HPI CHEST PAIN - Stated complaint Stated Complaint: R RIB PX - Chief complaint Chief Complaint: General - History obtained from History obtained from: Patient - History of Present Illness Timing - onset: Last night Timing - onset during: Light activity Timing - duration: Days (1) Timing - details: Abrupt onset, Still present Pain level max: 8 Pain level now: 8 Quality: Sharp, Pain Location: Right chest Radiation: No: Jaw, Neck, Back, Abdominal, Left upper extremity, Right upper extremity Improved by: Rest Worsened by: Inspiration, Movement, Palpation, Position Associated symptoms: Shortness of air Similar symptoms before: Diagnosis (rib fracture) Recently seen: Not recently seen - Additional information Additional information: 63-year-old female with a complicated medical history including chronic pain diabetes pulmonary hypertension and idiopathic brainstem swelling was in her usual state yesterday evening when she was standing in the kitchen and stirring some tomato sauce when she developed right-sided chest pain. She has persistence of this pain she has a area that is very tender any movement or deep breathing causes a worsening her pain. She has not been able to get control of this with her usual hydrocodone. She was not ill prior to this. Review of Systems Constitutional: denies: Fever Eyes: denies: Decreased vision Ears: denies: Ear pain Nose: denies: Rhinorrhea / runny nose, Congestion Throat: denies: Sore throat Cardiac: reports: Chest pain / pressure Respiratory: reports: Cough. denies: Dyspnea GI: denies: Abdominal Pain, Nausea, Vomiting PD PAST MEDICAL HISTORY - Past Medical History Past Medical History: Yes Cardiovascular: Congestive heart failure, Hypertension Respiratory: Other Endocrine/Autoimmune: Type 2 diabetes, Other GI: GERD, Colon polyps, Chronic diarrhea, Other PATTERN SETTER: Ovarian cysts, Other : Incontinence HEENT: Chronic vision loss, Chronic sinusitis Psych: Depression, Anxiety, Obsessive compulsive disorder Musculoskeletal: Osteoarthritis Derm: Other - Past Surgical History Past Surgical History: Yes General: Cholecystectomy, Appendectomy, Bowel surgery, Other Ortho: Knee replacement /PATTERN SETTER: 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, Oophrectomy Cardiovascular: Cardiac catheterization HEENT: Tonsil/Adenoidectomy - Present Medications Home Medications: Ambulatory Orders Medication Instructions Recorded Confirmed Aspirin [Aspirin EC] 650 mg PO 0800,1200,1600,2000 05/29/13 09/06/18 FLUoxetine [PROzac] 20 mg PO DAILY 05/29/13 09/06/18 Metoprolol Tartrate 25 mg PO BID 05/29/13 09/06/18 Potassium Chloride 20 meq PO DAILY PRN 05/29/13 09/06/18 Glimepiride 1 mg PO QDBREAKFAST 03/03/17 09/06/18 guaiFENesin [Mucinex] 1,200 mg PO BID 03/03/17 09/06/18 metFORMIN [Glucophage] 1,000 mg PO BID 03/03/17 09/06/18 Lidocaine Patch 5% [Lidoderm Patch] 1 each TOP DAILY #14 patch 11/25/17 09/06/18 Fluticasone [Flonase] 2 sprays MATT QPM 11/26/17 09/06/18 Propylene Glycol/Peg 400/Pf 1 drops EACHEYE QID PRN 11/26/17 09/06/18 [Systane 0.3-0.4% Eye Drop] Timolol 0.5% Ophth Drops [Timoptic 1 drops EACHEYE TID 11/26/17 09/06/18 0.5% Ophth Drops] Nystatin [Nystop] 1 applic TOP QID PRN bottle 11/27/17 09/06/18 Hydrocodone/Acetaminophen [Vicodin 1 each PO TID PRN 03/08/18 09/06/18 Es 7.5-300 mg Tablet] Cholecalciferol (Vitamin D3) 6,000 unit PO DAILY 05/03/18 09/06/18 [Vitamin D3] Esomeprazole Magnesium [Nexium] 40 mg PO DAILY 05/03/18 09/06/18 Furosemide [Lasix] 40 mg PO DAILY 05/03/18 09/06/18 Ondansetron HCl [Zofran] 4 mg PO QID 05/03/18 09/06/18 Saccharomyces Boulardii [Florastor] 250 mg PO DAILY 05/03/18 09/06/18 Cetirizine [ZyrTEC] 10 mg PO DAILY 09/06/18 09/06/18 Levofloxacin [Levaquin] 500 mg PO DAILY 09/06/18 09/06/18 buPROPion [Wellbutrin Xl] 150 mg PO BID 09/06/18 09/06/18 predniSONE [Deltasone] 20 mg PO DAILY 09/06/18 09/06/18 HYDROmorphone [Dilaudid] 2 - 4 mg PO Q4-6H PRN #20 tablet 09/28/18 - Allergies Allergies/Adverse Reactions: Allergies Allergy/AdvReac Type Severity Reaction Status Date / Time droperidol [From Inapsine] Allergy Severe EPS Verified 09/06/18 15:07 ibuprofen [From Motrin] Allergy Severe Anaphylaxis Verified 09/06/18 15:07 peanut Allergy Severe Anaphylaxis Verified 09/06/18 15:07 shellfish derived Allergy Severe Anaphylaxis Verified 09/06/18 15:07 [id number]-[id number]-Lym Reductase Allergy Severe muscle pain Verified 09/06/18 15:07 Inhibitor amoxicillin [Amoxicillin] Allergy Intermediate Hives Verified 09/06/18 15:07 cefazolin Allergy Intermediate Hives Verified 09/06/18 15:07 Cephalosporins Allergy Intermediate Hives Verified 09/06/18 15:07 clindamycin Allergy Intermediate Hives Verified 09/06/18 15:07 cyclobenzaprine Allergy Intermediate Hives/night Verified 09/06/18 15:07 [Cyclobenzaprine] castaneda erythromycin base Allergy Intermediate Hives Verified 09/06/18 15:07 [Erythromycin Base] potassium clavulanate * Allergy Intermediate Hives Verified 09/06/18 15:07 [From Augmentin] ketorolac tromethamine * Allergy Anaphylaxis Verified 09/06/18 15:07 [From Toradol] duloxetine AdvReac Severe Suicidal Verified 09/06/18 15:07 etanercept [From Enbrel] AdvReac Severe Nausea/vomm Verified 09/06/18 15:07 iting/cramp s methotrexate AdvReac Severe N/V/Cramps Verified 09/06/18 15:07 NSAIDS (Non-Steroidal AdvReac Severe Anaphylaxis Verified 09/06/18 15:07 Anti-Inflamma prochlorperazine AdvReac Severe EPS Verified 09/06/18 15:07 pseudoephedrine AdvReac Severe Tachycardia Verified 09/06/18 15:07 sumatriptan AdvReac Severe Widened QRS Verified 09/06/18 15:07 doxycycline AdvReac Intermediate Hives Verified 09/06/18 15:07 gabapentin AdvReac Intermediate Gait Verified 09/06/18 15:07 disturbance latex AdvReac Intermediate Sensitivity Verified 09/06/18 15:07 morphine AdvReac Unknown Verified 09/06/18 15:07 prochlorperazine edisylate * AdvReac Unknown Verified 09/06/18 15:07 [From Compazine] prochlorperazine maleate * AdvReac Unknown Verified 09/06/18 15:07 [From Compazine] promethazine [From Phenergan] AdvReac Hallucinati Verified 09/06/18 15:07 ons Tape AdvReac Severe Blisters Uncoded 09/06/18 15:07 - Social History Does the pt smoke?: Yes Smoking Status: Current every day smoker Does the pt drink ETOH?: Yes Does the pt have substance abuse?: No - Immunizations Immunizations are current?: Yes - POLST Patient has POLST: Yes POLST Status: DNR PD ED PE NORMAL - Vitals Vital signs reviewed: Yes (hypertensive ) - General General: Alert and oriented X 3, Well developed/nourished, Other (63 y/o female smelling heavily of tobacco and clutching her right chest appears to be in pain with each breath. ) - HEENT HEENT: Atraumatic, PERRL, EOMI - Neck Neck: Supple, no meningeal sign, No bony TTP - Cardiac Cardiac: RRR, No murmur - Respiratory Respiratory: No respiratory distress, Clear bilaterally, Other (marked point tenderness to the ribs on the right side lower and not to the abdomen. A sp ecific spot on a specific rib and reproducible.) - Abdomen Abdomen: Soft, Non tender - Back Back: No CVA TTP, No spinal TTP - Derm Derm: Normal color, Warm and dry, No rash - Extremities Extremities: No deformity, No edema - Neuro Neuro: Alert and oriented X 3, document specialist 2-12 intact, No motor deficit, No sensory deficit, Normal speech Eye Opening: Spontaneous Motor: Obeys Commands Verbal: Oriented GCS Score: 15 - Psych Psych: Normal mood, Normal affect Results - Vitals Vitals: Vital Signs - 24 hr 09/28/18 09/28/18 09/28/18 13:24 13:28 15:39 Temperature 36.1 C L 36.1 C L Heart Rate 72 72 74 Respiratory 18 18 16 Rate Blood Pressure 163/85 H 163/85 H 131/61 H O2 Saturation 97 97 94 Oxygen O2 Source [Without Activity] Room air O2 Source Room air - Rads (name of study) R ribs with PA chest Radiology: Prelim report reviewed, EMP read indepedently, See rad report PD MEDICAL DECISION MAKING - ED course Complexity details: considered differential, d/w patient ED course: 63-year-old female with severe osteoporosis has right chest wall pain and no evidence of acute fracture on x-ray examination. She is administered dexamethasone and Dilaudid for pain control. Departure - Departure Disposition: 01 Home, Self Care Clinical Impression: Chest wall pain Condition: Stable Instructions: ED Strain Chest Wall Follow-Up: GIRMA LOPEZ MD [Primary Care Provider] - Prescriptions: HYDROmorphone [Dilaudid] 2 - 4 mg PO Q4-6H PRN #20 tablet PRN Reason: Pain
== END 2018-09-28 16:26 | disposition home or self-care (01) ==
LOC: EDUNIT# → ED 13:22
DX: R07.89 Other chest pain (principal); I10 Essential (primary) hypertension; E11.9 Type 2 diabetes mellitus without complications; Z79.84 Long term (current) use of oral hypoglycemic drugs; F17.200 Nicotine dependence, unspecified, uncomplicated
CPT/HCPCS: 71101; 96372; 99283; A9270; J1170; Q0162

== ENCOUNTER 2018-10-19 13:31 | Outpatient (CLI) | payer MEDICARE | END 2018-10-19 13:32 | disposition home or self-care (01) | LOC: SC 13:31 | PROVIDERS: ATTEND Internal Medicine Pulmonary Disease | DX: G47.33 Obstructive sleep apnea (adult) (pediatric) (principal) | CPT/HCPCS: 99203; G0463; 99212 ==

== ENCOUNTER 2018-11-04 16:24 | Outpatient (CLI) | payer MEDICARE | END 2018-11-04 16:25 | disposition critical access hospital (66) | LOC: EMS 16:24 | PROVIDERS: ATTEND Surgery | DX: R20.0 Anesthesia of skin (principal); R53.1 Weakness; W18.39XA Other fall on same level, initial encounter; Y93.G1 Activity, food preparation and clean up; Y92.000 Kitchen of unspecified non-institutional (private) residence as the place of occurrence of the external cause | CPT/HCPCS: A0425; A0429 ==

== ENCOUNTER 2018-11-04 16:33 | Emergency (ER) | payer MEDICARE ==
[2018-11-04] MEDS ORDERED: SODIUM CHLORIDE 0.9% 1,000 ML IV ONE (16:53)
[2018-11-04 17:43] LABS: BILIRUBIN,URINE NEGATIVE (NEGATIVE); GLUCOSE, URINE (UA) NEGATIVE (NEGATIVE); KETONES,URINE (UA) NEGATIVE (NEGATIVE); LEUKOCYTE ESTERASE, URINE NEGATIVE (NEGATIVE); NITRITE,URINE NEGATIVE (NEGATIVE); OCCULT BLOOD,URINE SMALL (NEGATIVE); PROTEIN,URINE TRACE mg/dL (NEGATIVE); UROBILINOGEN,URINE 0.2 (NORMAL) E.U./dL (NORMAL)
[2018-11-04 17:44] LABS: CLARITY,URINE CLEAR (CLEAR)
[2018-11-04 17:49] LABS: BASOPHILS # (AUTO) 0.1 10^3/uL (0.0-0.1); BASOPHILS % (AUTO) 0.8 %; EOSINOPHILS # (AUTO) 0.1 10^3/uL (0.0-0.7); EOSINOPHILS % (AUTO) 0.5 %; LYMPHOCYTES # (AUTO) 1.1 10^3/uL (1.5-3.5); LYMPHOCYTES % (AUTO) 8.8 %; MEAN CORPUSCULAR HEMOGLOBIN 26.7 pg (27.0-31.0); MEAN CORPUSCULAR HGB CONC 32.4 g/dL (32.0-36.0); MEAN CORPUSCULAR VOLUME 82.6 fL (81.0-99.0); MEAN PLATELET VOLUME 7.6 fL (7.9-10.8); MONOCYTES # (AUTO) 0.7 10^3/uL (0.0-1.0); MONOCYTES % (AUTO) 5.4 %; NEUTROPHILS # (AUTO) 10.3 10^3/uL (1.5-6.6); NEUTROPHILS % (AUTO) 84.5 %; PLT - PLATELET COUNT 333 10^3/uL (130-450); RED BLOOD COUNT 4.86 10^6/uL (4.20-5.40); RED CELL DISTRIBUTION WIDTH 24.3 % (12.0-15.0); WHITE BLOOD COUNT 12.1 x10^3/uL (4.8-10.8)
[2018-11-04 17:52] LABS: ALBUMIN 3.9 g/dL (3.2-5.5); ALBUMIN/GLOBULIN RATIO 1.4 (1.0-2.2); BILIRUBIN,TOTAL 0.4 mg/dL (0.2-1.0); CALCIUM 9.6 mg/dL (8.5-10.3); CREATININE 0.6 mg/dL (0.4-1.0); TOTAL PROTEIN 6.6 g/dL (6.7-8.2)
[2018-11-04 18:07] LABS: BACTERIA,URINE None Seen /HPF (None Seen); SQUAMOUS EPITHELIAL CELL,UR RARE Squamous (<= Few)
--- NOTE | 2018-11-04 18:08 | ED Physician Documentation ---
PD HPI Fall - Stated complaint Stated Complaint: GLF - Chief complaint Chief Complaint: General - History obtained from History obtained from: Patient - History of Present Illness Fall distance: Standing position Where injury occurred: Home Timing - onset: Today (just prior to arrival) Injury(ies) location: Back Quality of pain: Pain Associated symptoms: No: LOC Worsens with: Movement Similar symptoms before: Diagnosis (Prior history of lower thoracic wedge fracture.) - Additional information Additional information: The patient is a 63-year-old female with a history of previous lower thoracic compression fracture, who presents via ambulance complaining of low back pain after falling while working in her kitchen just prior to arrival. She has chronic back pain, but states that the pain is worse than usual after the fall. She denies acute numbness or weakness in her lower extremities, but states she has felt [id number] in both lower legs, even prior to falling. She re ports "odiferous urine." She denies chest pain, shortness of breath, nausea or vomiting. She denies headache. Her past medical history is significant for a rare anaerobic infection for which she takes moxifloxacin for 1 week out of each month. She also has history of optic neuritis for which she was on high-dose prednisone therapy. She was previously diagnosed with a "T 13" wedge compression fracture. Review of Systems Constitutional: denies: Fever Ears: denies: Tinnitus/ringing Nose: denies: Congestion Throat: denies: Sore throat Cardiac: denies: Chest pain / pressure Respiratory: denies: Dyspnea, Cough GI: denies: Abdominal Pain, Nausea, Vomiting : reports: Incontinent. denies: Dysuria Skin: reports: Lesions (Chronic open wound on the right knee.). denies: Rash Musculoskeletal: reports: Back pain (Acute exacerbation of chronic low back pain.). denies: Neck pain, Extremity pain Neurologic: denies: Focal weakness, Headache, LOC PD PAST MEDICAL HISTORY - Past Medical History Past Medical History: Yes Cardiovascular: Congestive heart failure, Hypertension Respiratory: Other Endocrine/Autoimmune: Type 2 diabetes, Other GI: GERD, Colon polyps, Chronic diarrhea, Other OFFICE NURSE PRACTITIONER: Ovarian cysts, Other : Incontinence HEENT: Chronic vision loss, Chronic sinusitis Psych: Depression, Anxiety, Obsessive compulsive disorder Musculoskeletal: Osteoarthritis Derm: Other - Past Surgical History Past Surgical History: Yes General: Cholecystectomy, Appendectomy, Bowel surgery, Other Ortho: Knee replacement /OFFICE NURSE PRACTITIONER: 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, Oophrectomy Cardiovascular: Cardiac catheterization HEENT: Tonsil/Adenoidectomy - Present Medications Home Medications: Ambulatory Orders Medication Instructions Recorded Confirmed Aspirin [Aspirin EC] 650 mg PO 0800,1200,1600,2000 05/29/13 10/25/18 Metoprolol Tartrate 25 mg PO BID 05/29/13 10/25/18 Potassium Chloride 20 meq PO DAILY PRN 05/29/13 10/25/18 Glimepiride 1 mg PO QDBREAKFAST 03/03/17 10/25/18 guaiFENesin [Mucinex] 1,200 mg PO BID 03/03/17 10/25/18 metFORMIN [Glucophage] 1,000 mg PO BID 03/03/17 10/25/18 Fluticasone [Flonase] 2 sprays MATT QPM 11/26/17 10/25/18 Propylene Glycol/Peg 400/Pf 1 drops EACHEYE QID PRN 11/26/17 10/25/18 [Systane 0.3-0.4% Eye Drop] Timolol 0.5% Ophth Drops [Timoptic 1 drops EACHEYE BID 11/26/17 10/25/18 0.5% Ophth Drops] Nystatin [Nystop] 1 applic TOP QID PRN bottle 11/27/17 10/25/18 Hydrocodone/Acetaminophen [Vicodin 1 each PO TID PRN 03/08/18 10/25/18 Es 7.5-300 mg Tablet] Cholecalciferol (Vitamin D3) 6,000 unit PO DAILY 05/03/18 10/25/18 [Vitamin D3] Esomeprazole Magnesium [Nexium] 40 mg PO DAILY 05/03/18 10/25/18 Furosemide [Lasix] 40 mg PO DAILY PRN 05/03/18 10/25/18 Ondansetron HCl [Zofran] 4 mg PO QID PRN 05/03/18 10/25/18 Saccharomyces Boulardii [Florastor] 250 mg PO DAILY 05/03/18 10/25/18 Cetirizine [ZyrTEC] 10 mg PO DAILY 09/06/18 10/25/18 Levofloxacin [Levaquin] 500 mg PO DAILY 09/06/18 10/25/18 buPROPion [Wellbutrin Xl] 150 mg PO BID 09/06/18 10/25/18 predniSONE [Deltasone] 20 mg PO DAILY 09/06/18 10/25/18 HYDROmorphone [Dilaudid] 2 - 4 mg PO Q4-6H PRN #20 tablet 09/28/18 10/25/18 Calcitonin [Fortical] 1 sprays MATT DAILY 10/25/18 10/25/18 - Allergies Allergies/Adverse Reactions: Allergies Allergy/AdvReac Type Severity Reaction Status Date / Time droperidol [From Inapsine] Allergy Severe EPS Verified 11/04/18 16:47 ibuprofen [From Motrin] Allergy Severe Anaphylaxis Verified 11/04/18 16:47 peanut Allergy Severe Anaphylaxis Verified 11/04/18 16:47 shellfish derived Allergy Severe Anaphylaxis Verified 11/04/18 16:47 Sdrewzj-Jru-Njz Reductase Allergy Severe muscle pain Verified 11/04/18 16:47 Inhibitor amoxicillin [Amoxicillin] Allergy Intermediate Hives Verified 11/04/18 16:47 cefazolin Allergy Intermediate Hives Verified 11/04/18 16:47 Cephalosporins Allergy Intermediate Hives Verified 11/04/18 16:47 clindamycin Allergy Intermediate Hives Verified 11/04/18 16:47 cyclobenzaprine Allergy Intermediate Hives/night Verified 11/04/18 16:47 [Cyclobenzaprine] castaneda erythromycin base Allergy Intermediate Hives Verified 11/04/18 16:47 [Erythromycin Base] potassium clavulanate * Allergy Intermediate Hives Verified 11/04/18 16:47 [From Augmentin] ketorolac tromethamine * Allergy Anaphylaxis Verified 11/04/18 16:47 [From Toradol] duloxetine AdvReac Severe Suicidal Verified 11/04/18 16:47 etanercept [From Enbrel] AdvReac Severe Nausea/vomm Verified 11/04/18 16:47 iting/cramp s methotrexate AdvReac Severe N/V/Cramps Verified 11/04/18 16:47 NSAIDS (Non-Steroidal AdvReac Severe Anaphylaxis Verified 11/04/18 16:47 Anti-Inflamma prochlorperazine AdvReac Severe EPS Verified 11/04/18 16:47 pseudoephedrine AdvReac Severe Tachycardia Verified 11/04/18 16:47 sumatriptan AdvReac Severe Widened QRS Verified 11/04/18 16:47 doxycycline AdvReac Intermediate Hives Verified 11/04/18 16:47 gabapentin AdvReac Intermediate Gait Verified 11/04/18 16:47 disturbance latex AdvReac Intermediate Sensitivity Verified 11/04/18 16:47 morphine AdvReac Unknown Verified 11/04/18 16:47 prochlorperazine edisylate * AdvReac Unknown Verified 11/04/18 16:47 [From Compazine] prochlorperazine maleate * AdvReac Unknown Verified 11/04/18 16:47 [From Compazine] promethazine [From Phenergan] AdvReac Hallucinati Verified 11/04/18 16:47 ons Tape AdvReac Severe Blisters Uncoded 10/25/18 11:18 - Social History Does the pt smoke?: Yes Smoking Status: Current every day smoker Does the pt drink ETOH?: Yes Does the pt have substance abuse?: No - Immunizations Immunizations are current?: Yes - POLST Patient has POLST: Yes POLST Status: DNR PD ED PE NORMAL - Vitals Vital signs reviewed: Yes (Hypertensive) - General General: Alert and oriented X 3, Other (Overweight and deconditioned.) - HEENT HEENT: Atraumatic, EOMI, Moist mucous membranes - Neck Neck: Supple, no meningeal sign, No bony TTP, No JVD - Cardiac Cardiac: RRR - Respiratory Respiratory: No respiratory distress, Clear bilaterally - Abdomen Abdomen: Soft, Non tender - Back Back: No CVA TTP, Other (Tenderness to palpation in the lower thoracic and upper lumbar region of the back. There is no ecchymosis or break in the integument.) - Derm Derm: Other (Onychomycosis of the toes.) - Extremities Extremities: No calf tenderness / cord, Other (There is a open sore on the anterolateral aspect of the right knee, without surrounding erythema.) - Neuro Neuro: Alert and oriented X 3, No motor deficit, Other (Slightly decreased light touch sensation on the feet bilaterally, more on the left than the right.) Results - Vitals Vitals: Oxygen O2 Source [] Room air O2 Source Room air - EKG (time done) 17:19 Rate: Rate (enter#) (64) Rhythm: NSR [place]: Normal Intervals: Normal MI QRS: Poor R wave progression, Low voltage Ischemia: Normal ST segments Compare to prior EKG: Unchanged from prior EKG Computer interpretation: Agree with computer - Labs Labs: Laboratory Tests 11/04/18 11/04/18 11/04/18 17:20 17:20 17:20 WBC 12.1 H RBC 4.86 Hgb 13.0 Hct 40.1 MCV 82.6 MCH 26.7 L MCHC 32.4 RDW 24.3 H Plt Count 333 MPV 7.6 L Neut # (Auto) 10.3 H Lymph # (Auto) 1.1 L [place] # (Auto) 0.7 Eos # (Auto) 0.1 Baso # (Auto) 0.1 Absolute Nucleated RBC 0.00 Nucleated RBC % 0.0 Sodium 136 Potassium 3.9 Chloride 95 L Carbon Dioxide 27 Anion Gap 14.0 H BUN 16 Creatinine 0.6 Estimated GFR (MDRD) 101 Glucose 132 H Calcium 9.6 Total Bilirubin 0.4 AST 23 ALT 19 Alkaline Phosphatase 80 Troponin I < 0.04 Total Protein 6.6 L Albumin 3.9 Globulin 2.7 Albumin/Globulin Ratio 1.4 Lipase 44 Urine Color Urine Clarity Urine pH Ur Specific [place] Urine Protein Urine Glucose (UA) Urine Ketones Urine Occult Blood Urine Nitrite Urine Bilirubin Urine Urobilinogen Ur Leukocyte Esterase Urine RBC Urine WBC Ur Squamous Epith Cells Urine Bacteria Ur Microscopic Review Urine Culture Comments 11/04/18 17:20 WBC RBC Hgb Hct MCV MCH MCHC RDW Plt Count MPV Neut # (Auto) Lymph # (Auto) [place] # (Auto) Eos # (Auto) Baso # (Auto) Absolute Nucleated RBC Nucleated RBC % Sodium Potassium Chloride Carbon Dioxide Anion Gap BUN Creatinine Estimated GFR (MDRD) Glucose Calcium Total Bilirubin AST ALT Alkaline Phosphatase Troponin I Total Protein Albumin Globulin Albumin/Globulin Ratio Lipase Urine Color YELLOW Urine Clarity CLEAR Urine pH 6.0 Ur Specific [place] 1.015 Urine Protein TRACE Urine Glucose (UA) NEGATIVE Urine Ketones NEGATIVE Urine Occult Blood SMALL H Urine Nitrite NEGATIVE Urine Bilirubin NEGATIVE Urine Urobilinogen 0.2 (NORMAL) Ur Leukocyte Esterase NEGATIVE Urine RBC 6-10 H Urine WBC 0-3 Ur Squamous Epith Cells RARE Squamous Urine Bacteria None Seen Ur Microscopic Review INDICATED Urine Culture Comments NOT INDICATED - Rads (name of study) T-spine Radiology: Prelim report reviewed, EMP read contemporaneously, See rad report (There is a T12 moderate anterior wedging compression fracture with 40% loss of anterior vertebral body height which appears compared to previous xray on record here. (Previously diagnosed lower thoracic compression wedge fracture on xray at [facility].)) L-spine Radiology: Prelim report reviewed, EMP read contemporaneously, See rad report (No fracture or subluxation of the lumbar spine. Moderate anterior wedging compression fracture of T12.) PD MEDICAL DECISION MAKING - ED course Complexity details: reviewed old records, reviewed results, re-evaluated patient, considered differential, d/w patient ED course: The patient's presentation is significant for acute exacerbation of chronic low back pain after falling in her kitchen. She did not hit her head and had no loss of consciousness. X-rays of her thoracic spine and lumbar spine reveals 40% wedge compression fracture of lower thoracic vertebrae, identified as T 12 by the radiologist, but more accurately identified as T [address] scan done at [facility]. No additional fractures are identified today. Her urinalysis is negative, with no evidence to suggest urinary tract infection. CBC and chemistry panel are not significantly abnormal, with mildly elevated white blood cell count of 12.1, and mildly elevated blood sugar of 132. Her EKG reveals no evidence of acute ischemic abnormality, and troponin is normal. I do not think her fall was from an acute cardiac cause. There is no evidence to suggest neurologic etiology. Treatment in the emergency department included administration of normal saline 1 L IV, and Vicodin 1 tablet orally. Prior to discharge the patient demonstrated ability to ambulate with the assistance of her walker. She has limited mobility at baseline. I discussed with her the results of her imaging studies, symptomatic treatment and outpatient follow-up, as well as potentially worrisome signs or symptoms that should prompt reevaluation in the emergency department. Departure - Departure Disposition: 01 Home, Self Care Clinical Impression: Acute exacerbation of chronic low back pain Fall Qualifiers: Encounter type: initial encounter Qualified Code(s): W19.XXXA - Unspecified fall, initial encounter Right ankle sprain Qualifiers: Encounter type: initial encounter Involved ligament of ankle: unspecified ligament Qualified Code(s): S93.401A - Sprain of unspecified ligament of right ankle, initial encounter Condition: Stable Instructions: ED Low Back Pain Injury Follow-Up: GIRMA LOPEZ MD [Primary Care Provider] - Comments: Apply ice pack to the sore area intermittent leave for the next 3 days. You can continue to use your previously prescribed Vicodin if needed for pain. Let pain be your guide to activity level. Follow-up with your primary physician within 1 to 2 weeks. Call to schedule an appointment. Return to the emergency department if you develop increasing pain, recurrent falling, or otherwise worsening symptoms. Discharge Date/Time: 11/04/18 19:46
[2018-11-04] MEDS ORDERED: HYDROcod/ACETAM 5/325 MG TABLET PO STA (18:16)
--- NOTE | 2018-11-04 18:46 | XRAY Report ---
Reason: mid to lower back pain after falling. Procedure Date: 11/04/2018 Accession Number: [id number] / [id number] Procedure: XR - Thoracic Spine 2 View CPT Code: FULL RESULT: EXAM: THORACIC SPINE RADIOGRAPHY EXAM DATE: 11/04/2018 05:57 PM. CLINICAL HISTORY: Mid to lower back pain after falling. COMPARISON: RIBS W/PA CHEST RT 09/28/2018 2:37 PM CHEST 2 VIEW 10/30/2017 3:22 PM LUMBAR SPINE 2 VIEW 11/04/2018 5:06 PM CHEST W/ 04/09/2015 2:08 PM CHEST W/O 08/13/2015 12:11 PM CHEST 2 VIEW 07/07/2017 7:27 AM. TECHNIQUE: 2 views. FINDINGS: Alignment: No subluxation or scoliosis. Bones: There is an anterior wedging compression fracture of T12 with approximately 40% loss of anterior vertebral body height. This appears new since previous exam. No other fracture. Disks: Disk height grossly maintained. Soft Tissues: There is moderate aortic arch atherosclerotic calcification. There is a left-sided central line tip at mid SVC. IMPRESSION: 1. There is a T12 moderate anterior wedging compression fracture with 40% loss of anterior vertebral body height which appears new. [facility]
--- NOTE | 2018-11-04 18:47 | XRAY Report ---
Reason: lower back pain after falling Procedure Date: 11/04/2018 Accession Number: [id number] / [id number] Procedure: XR - Lumbar Spine 2 View CPT Code: FULL RESULT: EXAM: LUMBOSACRAL SPINE RADIOGRAPHY EXAM DATE: 11/04/2018 05:57 PM. CLINICAL HISTORY: Lower back pain after falling. COMPARISONS: CHEST 2 VIEW 10/30/2017 3:22 PM. TECHNIQUE: 2 views. FINDINGS: Alignment: No subluxation or scoliosis. Bones: There is a anterior wedging compression fracture involving the superior T12 vertebral body with approximately 40% loss of vertebral body height anteriorly. Posterior vertebral body height is preserved. 5 lumbar vertebral bodies. No lumbar spine fracture. Disks: Disk height appears maintained. Facets: Facet joints appear in satisfactory alignment. Sacroiliac Joints: Unremarkable. Soft Tissues: Normal. The visualized bowel gas pattern is normal. IMPRESSION: 1. No fracture or subluxation of lumbar spine. 2. Moderate anterior wedging compression fracture of T12 RADIA
[2018-11-04 19:15] VITALS: BP 157/96
== END 2018-11-04 19:46 | disposition home or self-care (01) ==
LOC: EDUNIT# → ED 16:33
DX: M54.5 Low back pain (principal); G89.29 Other chronic pain; S93.401A Sprain of unspecified ligament of right ankle, initial encounter; S22.080A Wedge compression fracture of T11-T12 vertebra, initial encounter for closed fracture; W18.30XA Fall on same level, unspecified, initial encounter; Y93.G3 Activity, cooking and baking; Y92.000 Kitchen of unspecified non-institutional (private) residence as the place of occurrence of the external cause; L98.8 Other specified disorders of the skin and subcutaneous tissue; B35.1 Tinea unguium; I11.0 Hypertensive heart disease with heart failure; I50.9 Heart failure, unspecified; E11.9 Type 2 diabetes mellitus without complications; Z79.84 Long term (current) use of oral hypoglycemic drugs; Z79.82 Long term (current) use of aspirin; F17.200 Nicotine dependence, unspecified, uncomplicated
CPT/HCPCS: 36415; 72070; 72100; 80053; 81001; 83690; 84484; 85025; 93005; 96361; 96374; 99283; 99284; A9270; 81003; 87086

== ENCOUNTER 2018-11-11 16:13 | Outpatient (CLI) | payer MEDICARE ==
--- NOTE | 2018-11-12 13:30 | XRAY Report ---
Reason: PAIN IN RIGHT WRIST, PAIN IN RIGHT ANKLE JOINTS Procedure Date: 11/11/2018 Accession Number: [id number] Procedure: XR - Ankle 3 View RT CPT Code: FULL RESULT: EXAM: RIGHT ANKLE RADIOGRAPHY EXAM DATE: 11/11/2018 04:29 PM. CLINICAL HISTORY: PAIN IN RIGHT WRIST, PAIN IN RIGHT ANKLE JOINTS. COMPARISON: None. TECHNIQUE: 3 views. FINDINGS: Bones: No acute fracture identified. There is a plantar calcaneal spur. Joints: Mild to moderate degenerative changes of the ankle joint. Severe degenerative changes of the midfoot. No effusion. No subluxation. The ankle mortise is normally aligned. Soft Tissues: There is diffuse soft tissue swelling. IMPRESSION: No acute osseus abnormality. Degenerative changes of the ankle and midfoot. Diffuse soft tissue swelling. RADIA
--- NOTE | 2018-11-12 13:31 | XRAY Report ---
Reason: PAIN IN RIGHT WRIST, PAIN IN RIGHT ANKLE JOINTS Procedure Date: 11/11/2018 Accession Number: [id number] Procedure: XR - Wrist 2 View RT CPT Code: FULL RESULT: EXAM: RIGHT WRIST RADIOGRAPHY EXAM DATE: 11/11/2018 04:29 PM. CLINICAL HISTORY: PAIN IN RIGHT WRIST, PAIN IN RIGHT ANKLE JOINTS. COMPARISON: XR FINGER MIN 2 VIEWS 05/21/2010 2:26 PM. TECHNIQUE: 2 views. FINDINGS: Bones: No acute fracture. Tiny ossicle adjacent to the ulnar styloid may be sequela of prior injury Joints: Normal. No subluxation. Soft Tissues: No focal soft tissue swelling. IMPRESSION: No acute osseus abnormality. RADIA
--- NOTE | 2018-11-12 13:33 | XRAY Report ---
Reason: PAIN IN RIGHT WRIST, PAIN IN RIGHT ANKLE JOINTS Procedure Date: 11/11/2018 Accession Number: [id number] / [id number] Procedure: XR - Hand 2 View RT CPT Code: FULL RESULT: EXAM: RIGHT HAND RADIOGRAPHY EXAM DATE: 11/11/2018 04:29 PM. CLINICAL HISTORY: PAIN IN RIGHT WRIST, PAIN IN RIGHT ANKLE JOINTS. COMPARISON: XR FINGER MIN 2 VIEWS 05/21/2010 2:26 PM. TECHNIQUE: 2 views. FINDINGS: Bones: No acute fracture. Joints: Moderate degenerative changes of the first and third MCP joints. Moderate IP joint degenerative change. No subluxation. Soft Tissues: No focal soft tissue swelling. IMPRESSION: No acute osseus abnormality. Osteoarthrosis. RADIA
== END 2018-11-11 16:14 | disposition home or self-care (01) ==
LOC: DI 16:13
PROVIDERS: ATTEND Nurse Practitioner Family
DX: M19.041 Primary osteoarthritis, right hand (principal); M19.071 Primary osteoarthritis, right ankle and foot

== ENCOUNTER 2018-11-25 15:01 | Outpatient (CLI) | payer MEDICARE | END 2018-11-25 15:02 | disposition critical access hospital (66) | LOC: EMS 15:01 | PROVIDERS: ATTEND Surgery | DX: R10.9 Unspecified abdominal pain (principal); R11.2 Nausea with vomiting, unspecified | CPT/HCPCS: A0425; A0429 ==

== ENCOUNTER 2018-11-25 15:13 | Inpatient (IN) | payer MEDICARE, MEDICAID ==
[2018-11-25] MEDS ORDERED: SODIUM CHLORIDE 0.9% 1,000 ML IV ONE (15:24)
--- NOTE | 2018-11-25 15:24 | ED Physician Documentation ---
PD HPI ABD PAIN - Stated complaint Stated Complaint: ABD PX - Chief complaint Chief Complaint: Abd Pain - History obtained from History obtained from: Patient, EMS - History of Present Illness Timing - onset: Today Timing - duration: Hours Timing - details: Abrupt onset Quality: Sharp, Stabbing, Pain Location: Other (mid abdomen) Improved by: Vomiting Worsened by: Eating Associated symptoms: Nausea, Vomiting, Constipation (no Bms today, usually has 15 a day). No: Fever, Hematemesis, Diarrhea, Melena, Hematochezia, Dysuria, Chest pain, Dizzy, Near syncope / syncope Similar symptoms before: Diagnosis (hx of adhesions, obstructions, hernias. Has had mu ltiple abdominal surgeries) Recently seen: Not recently seen - Treatment prior to arrival Treatment prior to arrival: zofran, pain medicine, she vomited both up Review of Systems Ten Systems: 10 systems reviewed and negative Constitutional: denies: Fever, Chills Cardiac: denies: Chest pain / pressure Respiratory: denies: Dyspnea GI: reports: Abdominal Pain, Nausea, Vomiting. 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: Ovarian cysts, Other : Incontinence HEENT: Chronic vision loss, Chronic sinusitis Psych: Depression, Anxiety, Obsessive compulsive disorder Musculoskeletal: Osteoarthritis Derm: Other - Past Surgical History Past Surgical History: Yes General: Cholecystectomy, Appendectomy, Bowel surgery, Other Ortho: Knee replacement /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 CHIEF TECHNOLOGIST: 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, Oophrectomy Cardiovascular: Cardiac catheterization HEENT: Tonsil/Adenoidectomy - Present Medications Home Medications: Ambulatory Orders Medication Instructions Recorded Confirmed RX: Aspirin [Aspirin EC] 650 mg PO 0800,1200,1600,2000 05/29/13 11/25/18 RX: Metoprolol Tartrate 25 mg PO BID 05/29/13 11/25/18 RX: Potassium Chloride 20 meq PO DAILY PRN 05/29/13 11/25/18 RX: Glimepiride 1 mg PO QDBREAKFAST 03/03/17 11/25/18 RX: metFORMIN [Glucophage] 1,000 mg PO BID 03/03/17 11/25/18 RX: Fluticasone [Flonase] 2 sprays MATT QPM 11/26/17 11/25/18 RX: Propylene Glycol/Peg 400/Pf 1 drops EACHEYE QID PRN 11/26/17 11/25/18 [Systane 0.3-0.4% Eye Drop] RX: Timolol 0.5% Ophth Drops 1 drops EACHEYE BID 11/26/17 11/25/18 [Timoptic 0.5% Ophth Drops] RX: Nystatin [Nystop] 1 applic TOP QID PRN bottle 11/27/17 11/25/18 Hydrocodone/Acetaminophen [Vicodin 1 each PO TID PRN 03/08/18 11/25/18 Es 7.5-300 mg Tablet] Cholecalciferol (Vitamin D3) 6,000 unit PO DAILY 05/03/18 11/25/18 [Vitamin D3] Esomeprazole Magnesium [Nexium] 40 mg PO DAILY 05/03/18 11/25/18 Furosemide [Lasix] 40 mg PO DAILY PRN 05/03/18 11/25/18 Ondansetron HCl [Zofran] 4 mg PO QID PRN 05/03/18 11/25/18 Saccharomyces Boulardii [Florastor] 250 mg PO DAILY 05/03/18 11/25/18 Cetirizine [ZyrTEC] 10 mg PO DAILY 09/06/18 11/25/18 RX: predniSONE [Deltasone] 20 mg PO DAILY 09/06/18 11/25/18 buPROPion [Wellbutrin Xl] 150 mg PO BID 09/06/18 11/25/18 HYDROmorphone [Dilaudid] 2 - 4 mg PO Q4-6H PRN #20 tablet 09/28/18 11/25/18 Calcitonin [Fortical] 1 sprays MATT DAILY 10/25/18 11/25/18 - Allergies Allergies/Adverse Reactions: Allergies Allergy/AdvReac Type Severity Reaction Status Date / Time droperidol [From Inapsine] Allergy Severe EPS Verified 11/25/18 15:23 ibuprofen [From Motrin] Allergy Severe Anaphylaxis Verified 11/25/18 15:23 peanut Allergy Severe Anaphylaxis Verified 11/25/18 15:23 shellfish derived Allergy Severe Anaphylaxis Verified 11/25/18 15:23 Udgurhl-Wln-Drc Reductase Allergy Severe muscle pain Verified 11/25/18 15:23 Inhibitor amoxicillin [Amoxicillin] Allergy Intermediate Hives Verified 11/25/18 15:23 cefazolin Allergy Intermediate Hives Verified 11/25/18 15:23 Cephalosporins Allergy Intermediate Hives Verified 11/25/18 15:23 clindamycin Allergy Intermediate Hives Verified 11/25/18 15:23 cyclobenzaprine Allergy Intermediate Hives/night Verified 11/25/18 15:23 [Cyclobenzaprine] castaneda erythromycin base Allergy Intermediate Hives Verified 11/25/18 15:23 [Erythromycin Base] potassium clavulanate * Allergy Intermediate Hives Verified 11/25/18 15:23 [From Augmentin] ketorolac tromethamine * Allergy Anaphylaxis Verified 11/25/18 15:23 [From Toradol] duloxetine AdvReac Severe Suicidal Verified 11/25/18 15:23 etanercept [From Enbrel] AdvReac Severe Nausea/vomm Verified 11/25/18 15:23 iting/cramp s methotrexate AdvReac Severe N/V/Cramps Verified 11/25/18 15:23 NSAIDS (Non-Steroidal AdvReac Severe Anaphylaxis Verified 11/25/18 15:23 Anti-Inflamma prochlorperazine AdvReac Severe EPS Verified 11/25/18 15:23 pseudoephedrine AdvReac Severe Tachycardia Verified 11/25/18 15:23 sumatriptan AdvReac Severe Widened QRS Verified 11/25/18 15:23 doxycycline AdvReac Intermediate Hives Verified 11/25/18 15:23 gabapentin AdvReac Intermediate Gait Verified 11/25/18 15:23 disturbance latex AdvReac Intermediate Sensitivity Verified 11/25/18 15:23 morphine AdvReac Unknown Verified 11/25/18 15:23 prochlorperazine edisylate * AdvReac Unknown Verified 11/25/18 15:23 [From Compazine] prochlorperazine maleate * AdvReac Unknown Verified 11/25/18 15:23 [From Compazine] promethazine [From Phenergan] AdvReac Hallucinati Verified 11/25/18 15:23 ons Tape AdvReac Severe Blisters Uncoded 11/25/18 15:23 - Social History Does the pt smoke?: Yes Smoking Status: Current every day smoker Does the pt drink ETOH?: Yes Does the pt have substance abuse?: No - Immunizations Immunizations are current?: Yes - POLST Patient has POLST: Yes POLST Status: DNR PD ED PE NORMAL - Vitals Vital signs reviewed: Yes - General General: Alert and oriented X 3, Other (obese, appears uncomfortable ) - HEENT HEENT: Atraumatic - Neck Neck: Supple, no meningeal sign, No JVD - Cardiac Cardiac: No: RRR, No murmur - Respiratory Respiratory: No respiratory distress - Abdomen Abdomen: Soft, Other (mild diffuse tenderness, soft, no guarding or rebound, obese abdomen ) - Female Female : Deferred - Rectal Rectal: Deferred - Derm Derm: Normal color, Warm and dry, No rash - Extremities Extremities: No deformity, No tenderness to palpate, Normal ROM s pain, No edema - Neuro Neuro: Alert and oriented X 3 Eye Opening: Spontaneous Motor: Obeys Commands Verbal: Oriented GCS Score: 15 - Psych Psych: Normal mood, Normal affect Results - Vitals Vitals: Vital Signs - 24 hr 11/25/18 11/25/18 11/25/18 15:19 15:30 17:30 Temperature 36.4 C L Heart Rate 96 88 89 Respiratory 14 20 20 Rate Blood Pressure 184/97 H 184/97 H 169/90 H O2 Saturation 97 95 96 11/25/18 18:34 Temperature 36.8 C Heart Rate 92 Respiratory 19 Rate Blood Pressure 147/80 H O2 Saturation 95 Oxygen O2 Source [Without Activity] Room air O2 Source Room air - Labs Labs: Laboratory Tests 11/25/18 11/25/18 11/25/18 16:07 16:07 16:07 WBC 13.0 H RBC 5.22 Hgb 13.8 Hct 43.7 MCV 83.7 MCH 26.4 L MCHC 31.5 L RDW 23.3 H Plt Count 360 MPV 7.1 L Neut # (Auto) 10.5 H Lymph # (Auto) 1.5 [place] # (Auto) 0.8 Eos # (Auto) 0.1 Baso # (Auto) 0.1 Absolute Nucleated RBC 0.00 Band Neuts % (Manual) Not Reportable Abnorm Lymph % (Manual) Not Reportable Nucleated RBC % 0.0 Neutrophils # (Manual) Not Reportable Lymphocytes # (Manual) Not Reportable Monocytes # (Manual) Not Reportable Eosinophils # (Manual) Not Reportable Basophils # (Manual) Not Reportable Differential Comment MANUAL=AUTO DIFF Platelet Estimate NORMAL (130-450,000) Platelet Morphology 1+ LARGE PLATELETS RBC Morph Micro Appear 1+ ANISOCYTOSIS Sodium 136 Potassium 3.6 Chloride 93 L Carbon Dioxide 28 Anion Gap 15.0 H BUN 12 Creatinine 0.5 Estimated GFR (MDRD) 125 Glucose 123 H Calcium 9.6 Total Bilirubin 0.5 AST 20 ALT 20 Alkaline Phosphatase 91 Troponin I < 0.04 Total Protein 7.1 Albumin 3.9 Globulin 3.2 Albumin/Globulin Ratio 1.2 Lipase 48 Urine Color Urine Clarity Urine pH Ur Specific [place] Urine Protein Urine Glucose (UA) Urine Ketones Urine Occult Blood Urine Nitrite Urine Bilirubin Urine Urobilinogen Ur Leukocyte Esterase Urine RBC Urine WBC Ur Squamous Epith Cells Urine Bacteria Ur Microscopic Review Urine Culture Comments 11/25/18 17:10 WBC RBC Hgb Hct MCV MCH MCHC RDW Plt Count MPV Neut # (Auto) Lymph # (Auto) [place] # (Auto) Eos # (Auto) Baso # (Auto) Absolute Nucleated RBC Band Neuts % (Manual) Abnorm Lymph % (Manual) Nucleated RBC % Neutrophils # (Manual) Lymphocytes # (Manual) Monocytes # (Manual) Eosinophils # (Manual) Basophils # (Manual) Differential Comment Platelet Estimate Platelet Morphology RBC Morph Micro Appear Sodium Potassium Chloride Carbon Dioxide Anion Gap BUN Creatinine Estimated GFR (MDRD) Glucose Calcium Total Bilirubin AST ALT Alkaline Phosphatase Troponin I Total Protein Albumin Globulin Albumin/Globulin Ratio Lipase Urine Color YELLOW Urine Clarity CLEAR Urine pH 5.5 Ur Specific [place] 1.025 Urine Protein 100 H Urine Glucose (UA) NEGATIVE Urine Ketones NEGATIVE Urine Occult Blood TRACE-LYSE Urine Nitrite NEGATIVE Urine Bilirubin NEGATIVE Urine Urobilinogen 0.2 (NORMAL) Ur Leukocyte Esterase NEGATIVE Urine RBC 0-5 Urine WBC 0-3 Ur Squamous Epith Cells FEW Squamous Urine Bacteria None Seen Ur Microscopic Review INDICATED Urine Culture Comments NOT INDICATED leukocytosis - Rads (name of study) Ct abd/pelvis Radiology: Final report received PD MEDICAL DECISION MAKING - ED course Complexity details: reviewed results, re-evaluated patient, considered differential, d/w patient, d/w family ED course: ddx-obstruction, perforation, incarcerated hernia, abscess, colitis, nonspecifci abdominal pain 63 y/o F with multiple abdominal surgeries, previous ventral hernia repair with mesh Today reports something ruptured inside and then she vomited twice and pt has not had a BM today Labs are stable except mild wbc count elevated, no fever. Given fluids analgesics and antiemetics on arrival. CT shows strangulated ventral hernia. Pt npo. Surgery consulted and pt Dariana admitted for OR. Departure - Departure Disposition: ED Transfer to [facility] Clinical Impression: Strangulated ventral hernia Condition: Serious Record reviewed to determine appropriate education?: Yes Discharge Date/Time: 11/25/18 20:06
[2018-11-25] MEDS ORDERED: MORPHINE 10 MG/ML VIAL IVP STA (15:25)
[2018-11-25] MEDS ORDERED: ONDANSETRON 4 MG/2 ML VIAL IVP STA (15:25)
[2018-11-25] MEDS ORDERED: HYDROmorphone 1 MG/ML CARPUJECT IVP STA ×2 (15:26→18:14)
[2018-11-25] MEDS ORDERED: IOVERSOL 320 100 ML VIAL IVP ONE ×3 (15:35→17:54)
[2018-11-25 16:13] LABS: BASOPHILS # (AUTO) 0.1 10^3/uL (0.0-0.1); BASOPHILS % (AUTO) 0.9 %; EOSINOPHILS # (AUTO) 0.1 10^3/uL (0.0-0.7); EOSINOPHILS % (AUTO) 0.8 %; HGB - HEMOGLOBIN 13.8 g/dL (12.0-16.0); LYMPHOCYTES # (AUTO) 1.5 10^3/uL (1.5-3.5); LYMPHOCYTES % (AUTO) 11.5 %; MEAN CORPUSCULAR HEMOGLOBIN 26.4 pg (27.0-31.0); MEAN CORPUSCULAR HGB CONC 31.5 g/dL (32.0-36.0); MEAN CORPUSCULAR VOLUME 83.7 fL (81.0-99.0); MEAN PLATELET VOLUME 7.1 fL (7.9-10.8); MONOCYTES # (AUTO) 0.8 10^3/uL (0.0-1.0); MONOCYTES % (AUTO) 5.9 %; NEUTROPHILS # (AUTO) 10.5 10^3/uL (1.5-6.6); NEUTROPHILS % (AUTO) 80.9 %; PLT - PLATELET COUNT 360 10^3/uL (130-450); RED BLOOD COUNT 5.22 10^6/uL (4.20-5.40); RED CELL DISTRIBUTION WIDTH 23.3 % (12.0-15.0)
[2018-11-25 16:41] LABS: ALBUMIN 3.9 g/dL (3.2-5.5); ALBUMIN/GLOBULIN RATIO 1.2 (1.0-2.2); BILIRUBIN,TOTAL 0.5 mg/dL (0.2-1.0); CALCIUM 9.6 mg/dL (8.5-10.3); CREATININE 0.5 mg/dL (0.4-1.0); TOTAL PROTEIN 7.1 g/dL (6.7-8.2)
[2018-11-25 16:48] LABS: DIFFERENTIAL COMMENT MANUAL=AUTO DIFF; PLATELET ESTIMATE, MANUAL NORMAL (130-450,000) (NORMAL); PLATELET MORPHOLOGY 1+ LARGE PLATELETS (NORMAL); RBC MORPHOLOGY (MULTIPLE) 1+ ANISOCYTOSIS (NORMAL)
[2018-11-25 17:22] LABS: BILIRUBIN,URINE NEGATIVE (NEGATIVE); GLUCOSE, URINE (UA) NEGATIVE (NEGATIVE); KETONES,URINE (UA) NEGATIVE (NEGATIVE); LEUKOCYTE ESTERASE, URINE NEGATIVE (NEGATIVE); NITRITE,URINE NEGATIVE (NEGATIVE); OCCULT BLOOD,URINE TRACE-LYSE (NEGATIVE); PH,URINE 5.5 PH (5.0-7.5); PROTEIN,URINE 100 mg/dL (NEGATIVE); UROBILINOGEN,URINE 0.2 (NORMAL) E.U./dL (NORMAL)
[2018-11-25 17:23] LABS: CLARITY,URINE CLEAR (CLEAR)
[2018-11-25 17:31] LABS: BACTERIA,URINE None Seen /HPF (None Seen); RBC,URINE 0-5 /HPF (0-5); SQUAMOUS EPITHELIAL CELL,UR FEW Squamous (<= Few)
[2018-11-25] MEDS ORDERED: HYDROmorphone 0.5 MG/0.5 ML SYRINGE IVP STA ×2 (18:02→18:07)
[2018-11-25] MEDS ORDERED: levoFLOXacin 500 MG/100 ML 500 MG/100 ML BAG IV STA (19:23)
[2018-11-25] MEDS ORDERED: VANCOMYCIN INJ 1 GM in SODIUM CHLORIDE 0.9% 500 ML IV STA (19:24)
--- NOTE | 2018-11-25 19:24 | ANESTHESIA ---
Pre-Anesthesia VS, & Labs - Diagnosis incercerated incisional hernia - Procedure repair of incisional hernia Vital Signs: Temp Pulse Resp BP Pulse Ox 36.8 C 92 19 147/80 H 95 11/25/18 18:34 11/25/18 18:34 11/25/18 18:34 11/25/18 18:34 11/25/18 18:34 Height 5 ft 1 in Weight (kg) 122.016 kg Body Mass Index 50.8 - NPO >8 hours - Is Patient ?: Not Applicable - Lab Results Current Lab Results: Laboratory Tests 11/25/18 16:07: Troponin I < 0.04 11/25/18 16:07: Sodium 136, Potassium 3.6, Chloride 93 L, Carbon Dioxide 28, Anion Gap 15.0 H, BUN 12, Creatinine 0.5, Estimated GFR (MDRD) 125, Glucose 123 H, Calcium 9.6, Total Bilirubin 0.5, AST 20, ALT 20, Alkaline Phosphatase 91, Total Protein 7.1, Albumin 3.9, Globulin 3.2, Albumin/Globulin Ratio 1.2, Lipase 48 11/25/18 16:07: WBC 13.0 H, RBC 5.22, Hgb 13.8, Hct 43.7, MCV 83.7, MCH 26.4 L, MCHC 31.5 L, RDW 23.3 H, Plt Count 360, MPV 7.1 L, Neut # (Auto) 10.5 H, Lymph # (Auto) 1.5, [place] # (Auto) 0.8, Eos # (Auto) 0.1, Baso # (Auto) 0.1, Absolute Nucleated RBC 0.00, Band Neuts % (Manual) Not Reportable, Abnorm Lymph % (Manual) Not Reportable, Nucleated RBC % 0.0, Neutrophils # (Manual) Not Report able, Lymphocytes # (Manual) Not Reportable, Monocytes # (Manual) Not Reportable, Eosinophils # (Manual) Not Reportable, Basophils # (Manual) Not Reportable, Differential Comment MANUAL=AUTO DIFF, Platelet Estimate NORMAL (130-450,000), Platelet Morphology 1+ LARGE PLATELETS, RBC Morph Micro Appear 1+ ANISOCYTOSIS Fish Bones: 11/25/18 16:07 11/25/18 16:07 Home Medications and Allergies Aspirin [Aspirin EC] 650 mg PO 0800,1200,1600,2000 05/29/13 Metoprolol Tartrate 25 mg PO BID 05/29/13 Potassium Chloride 20 meq PO DAILY PRN 05/29/13 Glimepiride 1 mg PO QDBREAKFAST 03/03/17 metFORMIN [Glucophage] 1,000 mg PO BID 03/03/17 Fluticasone [Flonase] 2 sprays MATT QPM 11/26/17 Propylene Glycol/Peg 400/Pf [Systane 0.3-0.4% Eye Drop] 1 drops EACHEYE QID PRN 11/26/17 Timolol 0.5% Ophth Drops [Timoptic 0.5% Ophth Drops] 1 drops EACHEYE BID 11/26/17 Hydrocodone/Acetaminophen [Vicodin Es 7.5-300 mg Tablet] 1 each PO TID PRN 03/08/18 Cholecalciferol (Vitamin D3) [Vitamin D3] 6,000 unit PO DAILY 05/03/18 Esomeprazole Magnesium [Nexium] 40 mg PO DAILY 05/03/18 Furosemide [Lasix] 40 mg PO DAILY PRN 05/03/18 Ondansetron HCl [Zofran] 4 mg PO QID PRN 05/03/18 Saccharomyces Boulardii [Florastor] 250 mg PO DAILY 05/03/18 Cetirizine [ZyrTEC] 10 mg PO DAILY 09/06/18 buPROPion [Wellbutrin Xl] 150 mg PO BID 09/06/18 predniSONE [Deltasone] 20 mg PO DAILY 09/06/18 Calcitonin [Fortical] 1 sprays MATT DAILY 10/25/18 Allergies/Adverse Reactions: Allergies Allergy/AdvReac Type Severity Reaction Status Date / Time droperidol [From Inapsine] Allergy Severe EPS Verified 11/25/18 15:23 ibuprofen [From Motrin] Allergy Severe Anaphylaxis Verified 11/25/18 15:23 peanut Allergy Severe Anaphylaxis Verified 11/25/18 15:23 shellfish derived Allergy Severe Anaphylaxis Verified 11/25/18 15:23 Orxhqkw-Yaq-Teb Reductase Allergy Severe muscle pain Verified 11/25/18 15:23 Inhibitor amoxicillin [Amoxicillin] Allergy Intermediate Hives Verified 11/25/18 15:23 cefazolin Allergy Intermediate Hives Verified 11/25/18 15:23 Cephalosporins Allergy Intermediate Hives Verified 11/25/18 15:23 clindamycin Allergy Intermediate Hives Verified 11/25/18 15:23 cyclobenzaprine Allergy Intermediate Hives/night Verified 11/25/18 15:23 [Cyclobenzaprine] castaneda erythromycin base Allergy Intermediate Hives Verified 11/25/18 15:23 [Erythromycin Base] potassium clavulanate * Allergy Intermediate Hives Verified 11/25/18 15:23 [From Augmentin] ketorolac tromethamine * Allergy Anaphylaxis Verified 11/25/18 15:23 [From Toradol] duloxetine AdvReac Severe Suicidal Verified 11/25/18 15:23 etanercept [From Enbrel] AdvReac Severe Nausea/vomm Verified 11/25/18 15:23 iting/cramp s methotrexate AdvReac Severe N/V/Cramps Verified 11/25/18 15:23 NSAIDS (Non-Steroidal AdvReac Severe Anaphylaxis Verified 11/25/18 15:23 Anti-Inflamma prochlorperazine AdvReac Severe EPS Verified 11/25/18 15:23 pseudoephedrine AdvReac Severe Tachycardia Verified 11/25/18 15:23 sumatriptan AdvReac Severe Widened QRS Verified 11/25/18 15:23 doxycycline AdvReac Intermediate Hives Verified 11/25/18 15:23 gabapentin AdvReac Intermediate Gait Verified 11/25/18 15:23 disturbance latex AdvReac Intermediate Sensitivity Verified 11/25/18 15:23 morphine AdvReac Unknown Verified 11/25/18 15:23 prochlorperazine edisylate * AdvReac Unknown Verified 11/25/18 15:23 [From Compazine] prochlorperazine maleate * AdvReac Unknown Verified 11/25/18 15:23 [From Compazine] promethazine [From Phenergan] AdvReac Hallucinati Verified 11/25/18 15:23 ons Tape AdvReac Severe Blisters Uncoded 11/25/18 15:23 Anes History & Medical History - Anesthetic History Anesthesia Complications: reports: No previous complications Family history of Anesthesia Complications: Denies Family history of Malignant Hyperthermia: Denies - Medical History Cardiovascular: reports: Congestive heart failure, Hypertension Pulmonary: reports: Other Gastrointestinal: reports: GERD, Colon polyps, Chronic diarrhea, Other Urinary: reports: Incontinence Musculoskeletal: reports: Osteoarthritis Endocrine/Autoimmune: reports: Type 2 diabetes, Other Blood Disorders: reports: None Skin: reports: Other Smoking Status: Current every day smoker Other Past Medical History: IBS - Surgical History General: Cholecystectomy, Appendectomy, Bowel surgery, Other Eyes Ears Nose Throat (EENT): Tonsil/Adenoidectomy Cardiothoracic: Cardiac catheterization Gynecologic: 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, Oophrectomy Orthopedic: Knee replacement Exam General: Alert Dental: Loose/Frag Mouth Openin Fingerbreadth Neck Mobility: Normal Mallampati classification: III Thyromental Distance: 4-6 cm Respiratory: Rhonchi Cardiovascular: Regular rate, Normal S1, Normal S2, No murmurs Plan Anesthesia Type: General Consent for Procedure(s) Verified and Reviewed: Yes Code Status: Do Not Attempt Resuscitation ASA classification: 3-Severe systemic disease Is this case an emergency?: Yes
[2018-11-25] MEDS ORDERED: metroNIDAZOLE 500 MG/100 ML 500 MG/100 ML BAG IV SCH ×2 (19:25→22:00)
--- NOTE | 2018-11-25 19:37 | CONSULTATION NOTE ---
Referring Provider Name of Referring Provider:: Dr. Zehra Knutson Consult Date: 11/25/18 Chief Complaint - Chief Complaint Chief Complaint: Abdominal pain with nausea/vomiting and no bowel function History of Present Illness - Admitted From Admitted From:: [facility] Emergency Department - History Obtained From Records Reviewed: Yes History obtained from: Patient, best friend Marlena, eleno, and Dr. Knutson Exam Limitations: This shear volume of medical information regarding this patient is impossib - History of Present Illness HPI Comment/Other: This is an extremely talkative 63-year-old female who was evaluated in room 8 at [facility]'s emergency department at the request of Dr. Knutson. When I came into the room the patient told me that she was disappointed that I was not Dr. Isis Chase. Apparently Dr. Isis Chase had operated on this patient in the past and the patient had an appointment to see Dr. Isis Chase in the office in a couple weeks. To summarize the patient has had numerous abdominal operations including a multiply recurrent incisional hernia which now on radiographic studies is a strangulated recurrent incisional hernia. The patient presents with nausea and vomiting as well as no bowel function. She has abdominal pain underneath the midline abdominal incision at the umbilicus. Laughing and any motion makes this pain worse. History - Past Medical History Cardiovascular: reports: Congestive heart failure, Hypertension Respiratory: reports: Other Endocrine/Autoimmune: reports: Type 2 diabetes, Other GI: reports: GERD, Colon polyps, Chronic diarrhea, Other [employer]: reports: Ovarian cysts, Other : reports: Incontinence HEENT: reports: Chronic vision loss, Chronic sinusitis Psych: reports: Depression, Anxiety, Obsessive compulsive disorder Musculoskeletal: reports: Osteoarthritis Derm: reports: Other MRSA Hx?: No Other Past Medical History: IBS - Past Surgical History General: reports: Cholecystectomy, Appendectomy, Bowel surgery, Other Ortho: reports: Knee replacement /[employer] 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 Father had Alzheimer's disease and coronary artery disease and is . 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 14 years ago she then went to [facility], [facility] and finally worked here at [employer]. . She is originally from the [place] in [place] [facility]. She lives alone with her dog. She does not have any biological children. She is not . She is a smoker and continue to smoke a pack a day and has been smoking for 45 years. She does not drink alcohol. She did try to use cannibis for pain control but it did not work and she does not use any other illicit drugs. She describes a severe change in lifestyle when she first became ill ~2006. she has gradually lost her social network and has 2 friends plus her library club. Very lonely. Wants to . Would like. assisted suicide. - Substance History Use: Uses substance without health or social issues: Tobacco - POLST Patient has POLST: Yes POLST Status: DNR Meds/Allgy - Home Medications Home Medications: Ambulatory Orders Medication Instructions Recorded Confirmed RX: Aspirin [Aspirin EC] 650 mg PO 0800,1200,1600,2000 05/29/13 11/25/18 RX: Metoprolol Tartrate 25 mg PO BID 05/29/13 11/25/18 RX: Potassium Chloride 20 meq PO DAILY PRN 05/29/13 11/25/18 RX: Glimepiride 1 mg PO QDBREAKFAST 03/03/17 11/25/18 RX: metFORMIN [Glucophage] 1,000 mg PO BID 03/03/17 11/25/18 RX: Fluticasone [Flonase] 2 sprays MATT QPM 11/26/17 11/25/18 RX: Propylene Glycol/Peg 400/Pf 1 drops EACHEYE QID PRN 11/26/17 11/25/18 [Systane 0.3-0.4% Eye Drop] RX: Timolol 0.5% Ophth Drops 1 drops EACHEYE BID 11/26/17 11/25/18 [Timoptic 0.5% Ophth Drops] RX: Nystatin [Nystop] 1 applic TOP QID PRN bottle 11/27/17 11/25/18 Hydrocodone/Acetaminophen [Vicodin 1 each PO TID PRN 03/08/18 11/25/18 Es 7.5-300 mg Tablet] Cholecalciferol (Vitamin D3) 6,000 unit PO DAILY 05/03/18 11/25/18 [Vitamin D3] Esomeprazole Magnesium [Nexium] 40 mg PO DAILY 05/03/18 11/25/18 Furosemide [Lasix] 40 mg PO DAILY PRN 05/03/18 11/25/18 Ondansetron HCl [Zofran] 4 mg PO QID PRN 05/03/18 11/25/18 Saccharomyces Boulardii [Florastor] 250 mg PO DAILY 05/03/18 11/25/18 Cetirizine [ZyrTEC] 10 mg PO DAILY 09/06/18 11/25/18 RX: predniSONE [Deltasone] 20 mg PO DAILY 09/06/18 11/25/18 buPROPion [Wellbutrin Xl] 150 mg PO BID 09/06/18 11/25/18 HYDROmorphone [Dilaudid] 2 - 4 mg PO Q4-6H PRN #20 tablet 09/28/18 11/25/18 Calcitonin [Fortical] 1 sprays MATT DAILY 10/25/18 11/25/18 Hydrocodone/Acetaminophen 1 each PO Q4HR PRN #20 tablet 11/28/18 [Hydrocodone-Acetamin 7.5-300] - Allergies Allergies/Adverse Reactions: Allergies Allergy/AdvReac Type Severity Reaction Status Date / Time droperidol [From Inapsine] Allergy Severe EPS Verified 11/25/18 15:23 ibuprofen [From Motrin] Allergy Severe Anaphylaxis Verified 11/25/18 15:23 peanut Allergy Severe Anaphylaxis Verified 11/25/18 15:23 shellfish derived Allergy Severe Anaphylaxis Verified 11/25/18 15:23 Nucxfus-Fuo-Kqc Reductase Allergy Severe muscle pain Verified 11/25/18 15:23 Inhibitor amoxicillin [Amoxicillin] Allergy Intermediate Hives Verified 11/25/18 15:23 cefazolin Allergy Intermediate Hives Verified 11/25/18 15:23 Cephalosporins Allergy Intermediate Hives Verified 11/25/18 15:23 clindamycin Allergy Intermediate Hives Verified 11/25/18 15:23 cyclobenzaprine Allergy Intermediate Hives/night Verified 11/25/18 15:23 [Cyclobenzaprine] castaneda erythromycin base Allergy Intermediate Hives Verified 11/25/18 15:23 [Erythromycin Base] potassium clavulanate * Allergy Intermediate Hives Verified 11/25/18 15:23 [From Augmentin] ketorolac tromethamine * Allergy Anaphylaxis Verified 11/25/18 15:23 [From Toradol] adhesive tape AdvReac Severe BLISTERS Verified 11/26/18 07:15 duloxetine AdvReac Severe Suicidal Verified 11/25/18 15:23 etanercept [From Enbrel] AdvReac Severe Nausea/vomm Verified 11/25/18 15:23 iting/cramp s methotrexate AdvReac Severe N/V/Cramps Verified 11/25/18 15:23 NSAIDS (Non-Steroidal AdvReac Severe Anaphylaxis Verified 11/25/18 15:23 Anti-Inflamma prochlorperazine AdvReac Severe EPS Verified 11/25/18 15:23 pseudoephedrine AdvReac Severe Tachycardia Verified 11/25/18 15:23 sumatriptan AdvReac Severe Widened QRS Verified 11/25/18 15:23 doxycycline AdvReac Intermediate Hives Verified 11/25/18 15:23 gabapentin AdvReac Intermediate Gait Verified 11/25/18 15:23 disturbance latex AdvReac Intermediate Sensitivity Verified 11/25/18 15:23 morphine AdvReac Unknown Verified 11/25/18 15:23 prochlorperazine edisylate * AdvReac Unknown Verified 11/25/18 15:23 [From Compazine] prochlorperazine maleate * AdvReac Unknown Verified 11/25/18 15:23 [From Compazine] promethazine [From Phenergan] AdvReac Hallucinati Verified 11/25/18 15:23 ons Review of Systems - Constitutional Constitutional: reports: Fatigue, Weakness - Gastrointestinal Gastrointestinal: reports: Abdominal pain, Abdominal distention, Nausea, Vomiting - Musculoskeletal Musculoskeletal: reports: Muscle pain, Back pain, Muscle aches, Stiffness, Limi seven range of motion, Muscle weakness, Joint pain - Integumentary Integumentary: reports: Rash, Hair changes Exam - Vital Signs Reviewed Vital Signs: Yes Vital Signs: Vital Signs x48h Temp Pulse Resp BP Pulse Ox 11/25/18 18:34 36.8 C 92 19 147/80 H 95 11/25/18 15:19 36.4 C L 96 14 184/97 H 97 - Physical Exam General Appearance: positive: Mild distress Eyes Bilateral: positive: No lid inflammation, Conjunctivae nml, No scleral icterus ENT: positive: Dry mucous membranes Neck: positive: Trachea midline Respiratory: positive: Chest non-tender, No respiratory distress, Other (D ecreased breath sounds anterolaterally bilaterally) Cardiovascular: positive: Regular rate & rhythm Abdomen: positive: Tenderness (Right at the midline incision just above the umbilicus where the incarceratedstrangulated hernia is), Hepatomegaly (Cannot appreciate), Splenomegaly (Cannot appreciate), Abnml bowel sounds, Other (Large (10 cm in diameter) incarcerated incisional hernia just above the umbilicus) Skin: positive: Color nml Extremities: positive: Other (Patient states that she has extreme difficulty walking with either 2 canes or a walker. She states that she "furniture surfs.") Neurologic/Psychiatric: positive: Oriented x3, Motor nml, Sensation nml, Mood/ affect nml Conclusion/Plan - Diagnosis Diagnosis: Incarceratedstrangulated recurrent incisional hernia - Plan Plan: Let me start on testing that the patient wishes to be DNR through the operation. I explained that she would need to be intubated for the operation and she is okay with this. On the other hand if her heart were to stop she does not wish to have compressions or cardioversion. I explained that I would certainly abide by her wishes. I have included it as part of the consent form. The plan is for an exploratory laparotomy with adhesio lysis reduction of the incarceratedstrangulated instant recurrent incisional hernia and repair of the hernia depending on the operative findings. Additionally, I explained to the patient that bowel resection may need to be performed. She is aware of this. She indicates in agreement with this plan and wishes to proceed. The indicati ons, procedure, alternatives including no operation, and were fully explained to the patient all questions were answered. Verbal and written consent was obtained. Due to the patient's stated allergies (they are not recorded in the medical record) she is been placed on 1 g of vancomycin, 500 mg of Levaquin, and 500 mg of Flagyl to be given preoperatively for prophylax against surgical infection. In addition she will have teds and Venodyne's placed for prophylax against deep venous thrombosis. I explained that normally I would send this patient home following this operation but as she cannot ambulate it is not safe. She states that last time she had a similar operation with Dr. Chase she was in the hospital for 4 days. I have asked her to let us know if there is any way we can make her stay here at [facility] more comfortable. She stated that she would. I attest that at 96 hours following the patient's admission I will either discharge the patient home or attempt to transfer to another institution. 45 minutes of [id number] time spent with the patient, the majority of which was spent in discussion, coordination of care, and completion of the requisite paperworkDragon disclaimer: This document was created in part using voice recognition technology. Because of the inherent limitations of the system ([employer]'s [employer] user manual states that the licensee understands that speech recognition is a statistical process and that recognition errors are inherent in the process), occasional same sounding word substitutions and grammatical errors do occur and persist despite proofreading. Please read this document for context. - Lab Results Lab results reviewed: Yes Fish Bones: 11/27/18 07:36 11/27/18 07:36 - Diagnostic Imaging Results Diagnostic Imaging Results: positive: Final report reviewed, Read independently
--- NOTE | 2018-11-25 19:39 | CT Report ---
Reason: eval for obstruction Procedure Date: 11/25/2018 Accession Number: [id number] / [id number] Procedure: CT - Abdomen/Pelvis W CPT Code: FULL RESULT: EXAM: CT ABDOMEN AND PELVIS EXAM DATE: 11/25/2018 04:43 PM. CLINICAL HISTORY: Abdominal pain. Possible bowel obstruction. COMPARISONS: ABDOMEN/PELVIS W/O 07/28/2017 12:04 PM. TECHNIQUE: Routine helical CT imaging was performed through the abdomen and pelvis. IV contrast: . Enteric contrast: No. Reconstructions: Coronal and sagittal. In accordance with CT protocol optimization, one or more of the following dose reduction techniques were utilized for this exam: automated exposure control, adjustment of mA and/or KV based on patient size, or use of iterative reconstructive technique. FINDINGS: Lung Bases: Unremarkable. Liver: Normal. No masses. Gallbladder/Bile Ducts: Cholecystectomy. No biliary dilatation. Spleen: Normal. Pancreas: Normal. Adrenal Glands: Normal. Kidneys: Normal. No masses or hydronephrosis. Peritoneal Cavity/Bowel: There is an approximate 6 cm overall diameter periumbilical hernia containing a moderately dilated loop of small intestine 5 cm in diameter and best seen on the sagittal MPR image 49. The hernia aperture in the abdominal wall is approximately 18 mm wide. The appendix is well visualized and normal. Pelvic Organs: Normal. The bladder and visualized pelvic organs are within normal limits. Vasculature: No aneurysms or other significant abnormality. Bones: No significant abnormality. Other: None. IMPRESSION: The primary finding is a large periumbilical ventral hernia containing a loop of strangulated small intestine. Surgical consultation is recommended. RADIA
[2018-11-25] MEDS ORDERED: SUGAMMADEX 200 MG/2 ML VIAL IVP ONE ×2 (19:49→21:30)
[2018-11-25] MEDS ORDERED: LACTATED RINGERS 1,000 ML IV ONE ×2 (20:05→22:00)
[2018-11-25] MEDS ORDERED: SODIUM CHLORIDE 0.9% 500 ML IV ONE (20:05)
[2018-11-25] MEDS ORDERED: BUPIVACAINE 0.5% PF 10 ML VIAL IM ONE (20:43)
[2018-11-25] MEDS ORDERED: metroNIDAZOLE 500 MG/100 ML 500 MG/100 ML BAG IV ONE (21:30)
[2018-11-25] MEDS ORDERED: ROCURONIUM 50 MG/5 ML VIAL IVP ONE (21:30)
[2018-11-25] MEDS ORDERED: levoFLOXacin 500 MG/100 ML 500 MG/100 ML BAG IV ONE (21:30)
[2018-11-25] MEDS ORDERED: ACETAMINOPHEN 1,000 MG/100 ML 100 ML IV ONE (21:30)
[2018-11-25] MEDS ORDERED: PROPOFOL 200 MG/20 ML VIAL IVP ONE (21:30)
[2018-11-25] MEDS ORDERED: ONDANSETRON 4 MG/2 ML VIAL IVP ONE (21:30)
[2018-11-25] MEDS ORDERED: fentaNYL 100 MCG/2 ML VIAL IVP ONE (21:30)
[2018-11-25] MEDS ORDERED: FUROSEMIDE 40 MG TABLET PO PRN (22:05)
[2018-11-25] MEDS ORDERED: CARBOXYMETHYLCELLULOSE OPHTH DROPS EACHEYE PRN (22:05)
[2018-11-25] MEDS ORDERED: ONDANSETRON 4 MG/2 ML VIAL ONE ×2 (22:07→23:02)
--- NOTE | 2018-11-25 22:12 | OPERATIVE REPORT ---
Operative Report - General Admit Date: 11/25/18 Planned Procedure: Exploratory laparotomy with adhesiolysis, possible bowel resection, possible hernia repair Pre-Op Diagnosis: Incarceratedstrangulated recurrent incisional hernia Procedure Performed: Repair of incarceratedstrangulated recurrent incisional hernia with mesh, adhesiolysis Post Op Diagnosis: Same with compromised bowel - Procedure Note Primary Surgeon: Abdi Cervantes MD Anesthesia Provider: Abdi Livingston MD Anesthesia Technique: General ET tube, Local (30 mL of half percent Marcaine) IV Fluids (mL): 800 Estimated Blood Loss (mL): 15 Complications: None. - Other Other Information/Narrative: OPERATIVE DESCRIPTION/REPORT: After verbal and written informed consent was obtained detailing the risks of infection, bleeding requiring transfusion with its risks, nerve injury, and , and after I met with the patient confirming the surgery and the site of the surgery, the patient was brought to the operative suite and placed supine on the operating table. Great care was taken to avoid pressure points to prevent pressure necrosis or nerve injury. Monitoring devices were applied along with TEDs and pneumatic compressive stockings (to prevent DVT). The patient received preoperative antibiotics for surgical prophylaxis. Dr. Abdi Livingston sedated and anesthetized the patient for the entire procedure. The patient was prepped and draped in the usual sterile manner. With the patient draped my initials were clearly visible. A "time in" then confirmed that the patient was identified with 3 identifiers (name, date and medical record number), the history and physical was in the chart, the signed consent confirming the procedure was in the chart, the patient was in the correct position, the aforementioned prophylactic measures were in place or given, we had the correct personnel and equipment to complete the procedure and that anesthesia, surgery and nursing were given an opportunity to express any concerns. With the agreement of everyone in the room, we proceeded with the operation. A vertical midline incision was made overlying the mass tracing the previous incision and dissection was carried down to the hernia sac using a combination of Metzenbaum scissors, scalpel, and mostly Bovie electrocautery. The sac was cleared of overlying adherent tissue, and the fascial defect was delineated. The fascia was cleared of any adherent tissue for a distance 1.5 cm from the defect. The sac was resected using a combination of Metzenbaum scissors and mostly Bovie electrocautery. With the sac resected, it was clear that there was some small amount of incarcerated omentum circumferentially which I resected using Bovie electrocautery. Additionally there was clearly a compromised piece of small bowel that could not be returned into the abdomen due to the swelling. I insinuated a right angle clamp between the bowel and the fascia and enlarged the fascial defect enough using Bovie electrocautery so that the bowel could be returned back into the abdomen. I did not let the bowel go deeply into the abdomen for fear of losing track of it. The incision and abdomen were then irrigated with warm sterile saline and a pack was placed about this. 5 minutes were allowed to elapse to see whether or not this clearly compromised bowel would "pink up." After 5 minutes, the irrigation was removed and the bowel was reexamined and noted to have "pinked up" nicely and was peristalting. The defect was closed using [employer] E/X mesh (Ref# [id number], Lot# [id number], and use by date 2022-01-09) sewing it in place using interrupted 0 PDS. There is excellent overlap circumferentially. Additionally, the fascia was closed over the mesh using interrupted 0 PDS in order to provide the greatest contact between the mesh and the fascia. The fascia was injected using half percent Marcaine. The subcutaneous tissues were copiously irrigated, and then closed using an interrupted 2-0 Vicryl. The umbilicus was sewn down to the fascia using 2-0 Vicryl in order to give the patient a "innie." Meticulous hemostasis was obtained using Bovie electrocautery. The skin and subcutaneous tissues were injected using half percent Marcaine. The skin incision was approximated with skin tsering. At this point a time out was performed that confirmed that all the counts were correct, the procedure that was performed, the blood loss, the IV fluids administered, and the patients condition. Having tolerated the procedure well, the patient was subsequently extubated and taken to recovery room in good and stable condition. [employer] disclaimer: This document was created in part using voice recognition technology. Because of the inherent limitations of the system ([employer]'s [employer] user manual states that the licensee understands that speech recognition is a statistical process and that recognition errors are inherent in the process), occasional same sounding word substitutions and grammatical errors do occur and persist despite proofreading. Please read this document for context.
[2018-11-25] MEDS ORDERED: SCOPOLAMINE PATCH TOP ONE (22:30)
[2018-11-26] MEDS: HYDROmorphone 1 MG/ML CARPUJECT IVP PRN ×3 (00:21→05:41)
[2018-11-26] MEDS: NS W/20 MEQ KCL 1,000 ML IV SCH ×3 (00:22→23:42)
[2018-11-26] MEDS: ACETAMINOPHEN 1,000 MG/100 ML 100 ML IV PRN ×2 (01:34→08:52)
[2018-11-26] MEDS: ENOXAPARIN 40 MG/0.4 ML SYRINGE SUBQ SCH ×3 (01:37→10:09)
[2018-11-26] MEDS: SODIUM CHLORIDE FLUSH 0.9% 10 ML SYRINGE IVP SCH ×6 (02:02→16:30)
[2018-11-26] MEDS: SODIUM CHLORIDE FLUSH 0.9% 10 ML SYRINGE IVP PRN ×6 (05:41→12:41)
[2018-11-26] MEDS: ONDANSETRON 4 MG/2 ML VIAL IVP PRN ×3 (05:42→18:26)
[2018-11-26] MEDS ORDERED: metroNIDAZOLE 500 MG/100 ML 500 MG/100 ML BAG IV SCH ×2 (06:00→13:00)
[2018-11-26] MEDS: PANTOPRAZOLE 40 MG VIAL IVP SCH (06:29)
[2018-11-26 06:40] LABS: BASOPHILS % (AUTO) 0.5 %; EOSINOPHILS # (AUTO) 0.1 10^3/uL (0.0-0.7); EOSINOPHILS % (AUTO) 1.3 %; HGB - HEMOGLOBIN 12.2 g/dL (12.0-16.0); LYMPHOCYTES % (AUTO) 11.6 %; MEAN CORPUSCULAR HEMOGLOBIN 26.8 pg (27.0-31.0); MEAN CORPUSCULAR HGB CONC 31.7 g/dL (32.0-36.0); MEAN CORPUSCULAR VOLUME 84.7 fL (81.0-99.0); MEAN PLATELET VOLUME 6.8 fL (7.9-10.8); MONOCYTES # (AUTO) 0.7 10^3/uL (0.0-1.0); MONOCYTES % (AUTO) 7.5 %; NEUTROPHILS % (AUTO) 79.1 %; PLT - PLATELET COUNT 309 10^3/uL (130-450); RED BLOOD COUNT 4.53 10^6/uL (4.20-5.40); RED CELL DISTRIBUTION WIDTH 23.4 % (12.0-15.0); WHITE BLOOD COUNT 8.8 x10^3/uL (4.8-10.8)
[2018-11-26 06:49] LABS: ALBUMIN/GLOBULIN RATIO 1.2 (1.0-2.2); BILIRUBIN,TOTAL 0.6 mg/dL (0.2-1.0); CALCIUM 8.2 mg/dL (8.5-10.3); CREATININE 0.5 mg/dL (0.4-1.0); TOTAL PROTEIN 5.5 g/dL (6.7-8.2)
[2018-11-26 07:06] LABS: PLATELET ESTIMATE, MANUAL NORMAL (130-450,000) (NORMAL)
[2018-11-26] MEDS: HYDROmorphone 0.5 MG/0.5 ML SYRINGE IVP PRN ×3 (08:53→16:49)
[2018-11-26] MEDS ORDERED: NON FORMULARY MED (Esomeprazole Magnesium [Nexium] 40 MG) PO SCH (09:00)
[2018-11-26] MEDS ORDERED: POTASSIUM CHLORIDE 10 MEQ CAPSULE PO PRN (09:22)
[2018-11-26] MEDS ORDERED: NYSTATIN POWDER 15 GM TOP PRN (09:22)
[2018-11-26] MEDS ORDERED: ONDANSETRON ODT 4 MG TABLET TL PRN (09:22)
[2018-11-26] MEDS ORDERED: MAGNESIUM OXIDE 400 MG TABLET PO SCH (10:00)
[2018-11-26] MEDS ORDERED: ONDANSETRON 4 MG/2 ML VIAL IVP ONE (10:00)
[2018-11-26] MEDS: METOPROLOL TARTRATE 50 MG TABLET PO SCH ×2 (10:09→20:24)
[2018-11-26] MEDS: TIMOLOL 0.5% OPHTH DROPS EACHEYE SCH ×2 (10:09→20:27)
[2018-11-26] MEDS: CALCITONIN NASAL SPRAY NAS SCH (10:20)
[2018-11-26] MEDS: GLIMEPIRIDE 2 MG TABLET PO SCH (11:16)
--- NOTE | 2018-11-26 12:46 | PROVIDER PROGRESS NOTE ---
Subjective - General Admit Date: 11/25/18 Procedure Date: 11/25/18 Post Op Days: 1 Procedure Performed: Repair of incarcerated-strangulated recurrent incisional hernia with mesh, - Review of Systems Wound/Incisions: positive: Dressing dry and intact HEENT: positive: No symptoms Pulmonary: positive: No symptoms Cardiovascular: positive: No symptoms Gastrointestinal: positive: Nausea (I prescribed an additional dose of Zofran. Scopolamine patch in place. Patient has taken esther in past with positive results. Tried rubbing alcohol sniff.), Abdominal pain (Incisional.) Psychiatric: positive: No symptoms Objective - Patient Data Reviewed Vital Signs: Yes Vital Signs: Vital Signs x48h Temp Pulse Resp BP BP Pulse Ox 11/26/18 11:35 36.8 C 78 20 131/81 H 92 11/26/18 10:09 136/58 H 11/26/18 09:56 20 96 11/26/18 07:46 36.8 C 79 18 136/58 H 90 L Weight: Weight 11/24/18 11/25/18 11/26/18 23:59 23:59 23:59 Weight (kg) 122.016 kg Intake & Output: Intake and Output Totals x24h 11/24/18 11/25/18 11/26/18 23:59 23:59 23:59 Intake Total 1700 1300 Output Total 975 Balance 1700 325 - Lab Results Lab Results: 11/26/18 06:30 11/26/18 06:30 Other Lab Results: Lab Results x24hrs 11/26/18 11/26/18 11/26/18 Range/Units 06:30 06:30 06:30 WBC 8.8 (4.8-10.8) x10^3/uL RBC 4.53 (4.20-5.40) 10^6/uL Hgb 12.2 (12.0-16.0) g/dL Hct 38.4 (37.0-47.0) % MCV 84.7 (81.0-99.0) fL MCH 26.8 L (27.0-31.0) pg MCHC 31.7 L (32.0-36.0) g/dL RDW 23.4 H (12.0-15.0) % Plt Count 309 (130-450) 10^3/uL MPV 6.8 L (7.9-10.8) fL Neut # (Auto) 7.0 H (1.5-6.6) 10^3/uL Lymph # (Auto) 1.0 L (1.5-3.5) 10^3/uL Glenn # (Auto) 0.7 (0.0-1.0) 10^3/uL Eos # (Auto) 0.1 (0.0-0.7) 10^3/uL Baso # (Auto) 0.0 (0.0-0.1) 10^3/uL Absolute Nucleated RBC 0.00 x10^3/uL Band Neuts % (Manual) Abnorm Lymph % (Manual) Nucleated RBC % 0.0 /100WBC Neutrophils # (Manual) Lymphocytes # (Manual) Monocytes # (Manual) Eosinophils # (Manual) Basophils # (Manual) Differential Comment Manual Slide Review Indicated Platelet Estimate NORMAL (130-450,000) (NORMAL) Platelet Morphology (NORMAL) RBC Morph Micro Appear DIMORPHIC RBCS (NORMAL) Sodium 136 (135-145) mmol/L Potassium 3.9 (3.5-5.0) mmol/L Chloride 101 (101-111) mmol/L Carbon Dioxide 26 (21-32) mmol/L Anion Gap 9.0 (6-13) BUN 8 (6-20) mg/dL Creatinine 0.5 (0.4-1.0) mg/dL Estimated GFR (MDRD) 125 (>89) Glucose 114 H (70-100) mg/dL Calcium 8.2 L (8.5-10.3) mg/dL Magnesium 1.4 L (1.7-2.8) mg/dL Total Bilirubin 0.6 (0.2-1.0) mg/dL AST 31 (10-42) IU/L ALT 27 (10-60) IU/L Alkaline Phosphatase 85 (42-121) IU/L Troponin I (<0.49) ng/mL Total Protein 5.5 L (6.7-8.2) g/dL Albumin 3.0 L (3.2-5.5) g/dL Globulin 2.5 (2.1-4.2) g/dL Albumin/Globulin Ratio 1.2 (1.0-2.2) Lipase (22-51) U/L Urine Color Urine Clarity (CLEAR) Urine pH (5.0-7.5) PH Ur Specific Dillard (1.002-1.030) Urine Protein (NEGATIVE) mg/dL Urine Glucose (UA) (NEGATIVE) mg/dL Urine Ketones (NEGATIVE) mg/dL Urine Occult Blood (NEGATIVE) Urine Nitrite (NEGATIVE) Urine Bilirubin (NEGATIVE) Urine Urobilinogen (NORMAL) E.U./dL Ur Leukocyte Esterase (NEGATIVE) Urine RBC (0-5) /HPF Urine WBC (0-5) /HPF Ur Squamous Epith Cells (<= Few) Urine Bacteria (None Seen) /HPF Ur Microscopic Review Urine Culture Comments 11/25/18 11/25/18 11/25/18 Range/Units 17:10 16:07 16:07 WBC (4.8-10.8) x10^3/uL RBC (4.20-5.40) 10^6/uL Hgb (12.0-16.0) g/dL Hct (37.0-47.0) % MCV (81.0-99.0) fL MCH (27.0-31.0) pg MCHC (32.0-36.0) g/dL RDW (12.0-15.0) % Plt Count (130-450) 10^3/uL MPV (7.9-10.8) fL Neut # (Auto) (1.5-6.6) 10^3/uL Lymph # (Auto) (1.5-3.5) 10^3/uL Glenn # (Auto) (0.0-1.0) 10^3/uL Eos # (Auto) (0.0-0.7) 10^3/uL Baso # (Auto) (0.0-0.1) 10^3/uL Absolute Nucleated RBC x10^3/uL Band Neuts % (Manual) Abnorm Lymph % (Manual) Nucleated RBC % /100WBC Neutrophils # (Manual) Lymphocytes # (Manual) Monocytes # (Manual) Eosinophils # (Manual) Basophils # (Manual) Differential Comment Manual Slide Review Platelet Estimate (NORMAL) Platelet Morphology (NORMAL) RBC Morph Micro Appear (NORMAL) Sodium 136 (135-145) mmol/L Potassium 3.6 (3.5-5.0) mmol/L Chloride 93 L (101-111) mmol/L Carbon Dioxide 28 (21-32) mmol/L Anion Gap 15.0 H (6-13) BUN 12 (6-20) mg/dL Creatinine 0.5 (0.4-1.0) mg/dL Estimated GFR (MDRD) 125 (>89) Glucose 123 H (70-100) mg/dL Calcium 9.6 (8.5-10.3) mg/dL Magnesium (1.7-2.8) mg/dL Total Bilirubin 0.5 (0.2-1.0) mg/dL AST 20 (10-42) IU/L ALT 20 (10-60) IU/L Alkaline Phosphatase 91 (42-121) IU/L Troponin I < 0.04 (<0.49) ng/mL Total Protein 7.1 (6.7-8.2) g/dL Albumin 3.9 (3.2-5.5) g/dL Globulin 3.2 (2.1-4.2) g/dL Albumin/Globulin Ratio 1.2 (1.0-2.2) Lipase 48 (22-51) U/L Urine Color YELLOW Urine Clarity CLEAR (CLEAR) Urine pH 5.5 (5.0-7.5) PH Ur Specific [place]illard 1.025 (1.002-1.030) Urine Protein 100 H (NEGATIVE) mg/dL Urine Glucose (UA) NEGATIVE (NEGATIVE) mg/dL Urine Ketones NEGATIVE (NEGATIVE) mg/dL Urine Occult Blood TRACE-LYSE (NEGATIVE) Urine Nitrite NEGATIVE (NEGATIVE) Urine Bilirubin NEGATIVE (NEGATIVE) Urine Urobilinogen 0.2 (NORMAL) (NORMAL) E.U./dL Ur Leukocyte Esterase NEGATIVE (NEGATIVE) Urine RBC 0-5 (0-5) /HPF Urine WBC 0-3 (0-5) /HPF Ur Squamous Epith Cells FEW Squamous (<= Few) Urine Bacteria None Seen (None Seen) /HPF Ur Microscopic Review INDICATED Urine Culture Comments NOT INDICATED 11/25/18 Range/Units 16:07 WBC 13.0 H (4.8-10.8) x10^3/uL RBC 5.22 (4.20-5.40) 10^6/uL Hgb 13.8 (12.0-16.0) g/dL Hct 43.7 (37.0-47.0) % MCV 83.7 (81.0-99.0) fL MCH 26.4 L (27.0-31.0) pg MCHC 31.5 L (32.0-36.0) g/dL RDW 23.3 H (12.0-15.0) % Plt Count 360 (130-450) 10^3/uL MPV 7.1 L (7.9-10.8) fL Neut # (Auto) 10.5 H (1.5-6.6) 10^3/uL Lymph # (Auto) 1.5 (1.5-3.5) 10^3/uL Glenn # (Auto) 0.8 (0.0-1.0) 10^3/uL Eos # (Auto) 0.1 (0.0-0.7) 10^3/uL Baso # (Auto) 0.1 (0.0-0.1) 10^3/uL Absolute Nucleated RBC 0.00 x10^3/uL Band Neuts % (Manual) Not Reportable Abnorm Lymph % (Manual) Not Reportable Nucleated RBC % 0.0 /100WBC Neutrophils # (Manual) Not Reportable Lymphocytes # (Manual) Not Reportable Monocytes # (Manual) Not Reportable Eosinophils # (Manual) Not Reportable Basophils # (Manual) Not Reportable Differential Comment MANUAL=AUTO DIFF Manual Slide Review Platelet Estimate NORMAL (130-450,000) (NORMAL) Platelet Morphology 1+ LARGE PLATELETS (NORMAL) RBC Morph Micro Appear 1+ ANISOCYTOSIS (NORMAL) Sodium (135-145) mmol/L Potassium (3.5-5.0) mmol/L Chloride (101-111) mmol/L Carbon Dioxide (21-32) mmol/L Anion Gap (6-13) BUN (6-20) mg/dL Creatinine (0.4-1.0) mg/dL Estimated GFR (MDRD) (>89) Glucose (70-100) mg/dL Calcium (8.5-10.3) mg/dL Magnesium (1.7-2.8) mg/dL Total Bilirubin (0.2-1.0) mg/dL AST (10-42) IU/L ALT (10-60) IU/L Alkaline Phosphatase (42-121) IU/L Troponin I (<0.49) ng/mL Total Protein (6.7-8.2) g/dL Albumin (3.2-5.5) g/dL Globulin (2.1-4.2) g/dL Albumin/Globulin Ratio (1.0-2.2) Lipase (22-51) U/L Urine Color Urine Clarity (CLEAR) Urine pH (5.0-7.5) PH Ur Specific Dillard (1.002-1.030) Urine Protein (NEGATIVE) mg/dL Urine Glucose (UA) (NEGATIVE) mg/dL Urine Ketones (NEGATIVE) mg/dL Urine Occult Blood (NEGATIVE) Urine Nitrite (NEGATIVE) Urine Bilirubin (NEGATIVE) Urine Urobilinogen (NORMAL) E.U./dL Ur Leukocyte Esterase (NEGATIVE) Urine RBC (0-5) /HPF Urine WBC (0-5) /HPF Ur Squamous Epith Cells (<= Few) Urine Bacteria (None Seen) /HPF Ur Microscopic Review Urine Culture Comments - Current Medications Current Medications: Current Medications Generic Name Dose Route Start Last Admin Trade Name Freq PRN Reason Stop Dose Admin Calcitonin [place] 1 sprays 11/26/18 09:00 11/26/18 10:20 Fortical MATT 1 spr DAILY RIVERA Administration Carboxymethylcellulose 1 drops 11/25/18 22:05 11/26/18 10:25 Refresh 1% Ophth Drops EACHEYE 1 drops QID PRN Administration DRYNESS Enoxaparin Sodium 40 mg 11/25/18 23:00 11/26/18 10:09 Lovenox SUBQ 40 mg DAILY RIVERA Administration Glimepiride 1 mg 11/26/18 08:00 11/26/18 11:16 Amaryl PO Not Given DAILYWM RIVERA Hydromorphone HCl 0.5 mg 11/26/18 07:31 11/26/18 12:40 Dilaudid Inj Syringe IVP 0.5 mg Q2HR PRN Administration PAIN Acetaminophen 100 mls @ 400 mls/hr 11/25/18 21:56 11/26/18 09:16 Ofirmev IV 11/27/18 21:55 Infused Q6HR PRN Infusion PAIN Potassium Chloride/Sodium Chloride 1,000 mls @ 100 mls/hr 11/25/18 22:00 10:24 Normal Saline 0.9% W/20 Meq Kcl IV 100 mls/hr .Q10H RIVERA Administration Metronidazole 500 mg in 100 mls @ 100 mls/hr 11/26/18 06:00 11/26/18 07:30 Flagyl 500 Mg/100 Ml IV 11/26/18 22:59 Infused Q8HR [facility] Infusion Magnesium Oxide 400 mg 11/26/18 10:00 11/26/18 11:17 Mag Ox PO Not Given DAILYWM [facility] Metoprolol Tartrate 25 mg 11/26/18 09:00 11/26/18 10:09 Lopressor PO 25 mg BID RIVERA Administration Ondansetron HCl 4 mg 11/25/18 21:56 11/26/18 12:40 Zofran Inj IVP 4 mg Q6H PRN Administration Nausea / Vomiting Pantoprazole Sodium 40 mg 11/26/18 07:00 11/26/18 06:29 Protonix IVP 40 mg QDAC RIVERA Administration Sodium Chloride 10 ml 11/26/18 01:00 11/26/18 08:53 Normal Saline Flush 0.9% IVP 10 ml 0100,0900,1700 RIVERA Administration Sodium Chloride 10 ml 11/25/18 21:56 11/26/18 12:41 Normal Saline Flush 0.9% IVP 30 ml PRN PRN Administration NEEDED PER PROVIDER ORDERS Sodium Chloride 10 ml 11/26/18 01:00 11/26/18 11:16 Normal Saline Flush 0.9% IVP Not Given 0100,0900,1700 RIVERA Sodium Chloride 10 ml 11/25/18 22:08 11/26/18 06:30 Normal Saline Flush 0.9% IVP 10 ml PRN PRN Administration NEEDED PER PROVIDER ORDERS Sodium Chloride 20 ml 11/26/18 04:35 11/26/18 05:41 Normal Saline Flush 0.9% IVP 20 ml PRN PRN Administration After Blood Draw Timolol Maleate 1 drops 11/26/18 09:00 11/26/18 10:09 Timoptic 0.5% Ophth Drops EACHEYE 1 drops BID RIVERA Administration - Physical Exam Wound/Incisions: positive: Dressing dry and intact General Appearance: positive: No acute distress Eyes Bilateral: positive: No lid inflammation, Conjunctivae nml, No scleral icterus (Feels like there is something in her right eye. Drops given.) Neck: positive: Trachea midline Respiratory: positive: Chest non-tender, No respiratory distress, Breath sounds nml (Distant.) Cardiovascular: positive: Regular rate & rhythm Abdomen: positive: Nml bowel sounds, Tenderness (Incisional.) Neurologic/Psychiatric: positive: Oriented x3 (Friends at bedside.), Motor nml, Sensation nml, Mood/affect nml ABX Reporting Has patient been on IV antibiotics over the past 48 hours?: Yes Impression/Plan - Problem List Problem List: D1 s/p repair incarcerated-strangulated hernia with mesh Tolerating liquids. Will advance diet. Will supplement magnesium. Start oral pain medications. Give one additional dose of antibiotics prior to the 24 hour limit due to patient's history of infected wounds. Patient doing well ambulating. Nausea is still a major complaint - patient passing a large amount of gas.
[2018-11-26] MEDS ORDERED: VANCOMYCIN INJ 1 GM in SODIUM CHLORIDE 0.9% 500 ML IV STA (12:53)
[2018-11-26] MEDS: predniSONE 20 MG TABLET PO SCH (12:54)
[2018-11-26] MEDS: buPROPion XL 150 MG TABLET PO SCH ×2 (12:54→20:24)
[2018-11-26] MEDS: CHOLECALCIFEROL 1,000 UNIT TABLET PO SCH (12:54)
[2018-11-26] MEDS: SACCHAROMYCES BOULARDII 250 MG CAPSULE PO SCH (12:54)
[2018-11-26] MEDS: CETIRIZINE 10 MG TABLET PO SCH (12:54)
[2018-11-26] MEDS: HYDROcod/ACETAM 7.5 MG/325 MG TABLET PO PRN ×3 (14:43→23:26)
[2018-11-26] MEDS: MAGNESIUM SULFATE 2 GRAM 2 GM/50 ML BAG IV ONE ×2 (14:51→16:30)
[2018-11-26] MEDS: FLUTICASONE NASAL SPRAY NAS SCH (20:28)
[2018-11-27] MEDS: SODIUM CHLORIDE FLUSH 0.9% 10 ML SYRINGE IVP SCH ×6 (01:24→17:37)
[2018-11-27] MEDS: SODIUM CHLORIDE FLUSH 0.9% 10 ML SYRINGE IVP PRN ×3 (02:01→06:25)
[2018-11-27] MEDS: HYDROmorphone 0.5 MG/0.5 ML SYRINGE IVP PRN (02:01)
[2018-11-27] MEDS: ONDANSETRON 4 MG/2 ML VIAL IVP PRN ×2 (02:27→08:16)
[2018-11-27] MEDS: PANTOPRAZOLE 40 MG VIAL IVP SCH (06:25)
[2018-11-27 07:47] LABS: BASOPHILS % (AUTO) 0.6 %; EOSINOPHILS # (AUTO) 0.1 10^3/uL (0.0-0.7); EOSINOPHILS % (AUTO) 1.4 %; HGB - HEMOGLOBIN 11.1 g/dL (12.0-16.0); LYMPHOCYTES # (AUTO) 0.8 10^3/uL (1.5-3.5); LYMPHOCYTES % (AUTO) 11.4 %; MEAN CORPUSCULAR HEMOGLOBIN 27.3 pg (27.0-31.0); MEAN CORPUSCULAR HGB CONC 31.2 g/dL (32.0-36.0); MEAN CORPUSCULAR VOLUME 87.7 fL (81.0-99.0); MEAN PLATELET VOLUME 7.1 fL (7.9-10.8); MONOCYTES # (AUTO) 0.5 10^3/uL (0.0-1.0); MONOCYTES % (AUTO) 7.7 %; NEUTROPHILS # (AUTO) 5.2 10^3/uL (1.5-6.6); NEUTROPHILS % (AUTO) 78.9 %; PLT - PLATELET COUNT 162 10^3/uL (130-450); RED BLOOD COUNT 4.06 10^6/uL (4.20-5.40); RED CELL DISTRIBUTION WIDTH 23.3 % (12.0-15.0); WHITE BLOOD COUNT 6.6 x10^3/uL (4.8-10.8)
[2018-11-27 07:56] LABS: CALCIUM 8.4 mg/dL (8.5-10.3); CREATININE 0.5 mg/dL (0.4-1.0); MAGNESIUM 1.9 mg/dL (1.7-2.8)
[2018-11-27 08:06] LABS: INR 1.1 (0.8-1.2); PT - PROTHROMBIN TIME 12.3 secs (9.9-12.6)
[2018-11-27 08:27] LABS: PLATELET ESTIMATE, MANUAL NORMAL (130-450,000) (NORMAL); PLATELET MORPHOLOGY NORMAL APPEARANCE (NORMAL)
[2018-11-27] MEDS: GLIMEPIRIDE 2 MG TABLET PO SCH ×3 (09:02→12:27)
[2018-11-27] MEDS: CALCITONIN NASAL SPRAY NAS SCH (09:03)
[2018-11-27] MEDS: CETIRIZINE 10 MG TABLET PO SCH (09:04)
[2018-11-27] MEDS: CHOLECALCIFEROL 1,000 UNIT TABLET PO SCH ×2 (09:04→09:10)
[2018-11-27] MEDS: SACCHAROMYCES BOULARDII 250 MG CAPSULE PO SCH (09:05)
[2018-11-27] MEDS: METOPROLOL TARTRATE 50 MG TABLET PO SCH ×2 (09:05→21:32)
[2018-11-27] MEDS: predniSONE 20 MG TABLET PO SCH (09:05)
[2018-11-27] MEDS: TIMOLOL 0.5% OPHTH DROPS EACHEYE SCH ×2 (09:06→21:35)
[2018-11-27] MEDS: HYDROcod/ACETAM 7.5 MG/325 MG TABLET PO PRN ×4 (09:07→22:29)
[2018-11-27] MEDS: buPROPion XL 150 MG TABLET PO SCH ×2 (09:18→21:32)
[2018-11-27] MEDS: NS W/20 MEQ KCL 1,000 ML IV SCH ×2 (10:18→14:56)
[2018-11-27] MEDS: ENOXAPARIN 40 MG/0.4 ML SYRINGE SUBQ SCH (12:34)
--- NOTE | 2018-11-27 12:47 | PROVIDER PROGRESS NOTE ---
Subjective - Prog Note Date Prog Note Date: 11/27/18 Prog Note Time: 12:43 - Subjective Pt reports feeling: Improved (Belkis reports her pain was "horrible" until about noon today when it seemed to improve.) Subjective: She is feeling better this afternoon. Eating her first real meal of grilled cheese. Denies any nausea. Says her wound has been draining some and shes a little worried about that. "I was sure we were going back to the OR today". Says she thinks it has stopped draining now. Objective - Vital Signs/Intake & Output Reviewed Vital Signs: Yes Vital Signs: Vital Signs x48h Temp Pulse Resp BP BP Pulse Ox 11/27/18 09:05 145/80 H 11/27/18 08:21 37.1 C 74 20 145/80 H 92 Intake & Output: Intake & Output 11/24/18 11/25/18 11/26/18 11/27/18 23:59 23:59 23:59 23:59 Intake Total 1700 4030 1500 Output Total 975 700 Balance 1700 3055 800 - Objective General Appearance: positive: No acute distress Respiratory: positive: Chest non-tender, No respiratory distress, Breath sounds nml Cardiovascular: positive: Regular rate & rhythm, No murmur Abdomen: positive: Other (Soft and appropriately tender with active bowel sounds. The wound is clean and well approximated. There is serous drainage on the dressing and around the wound that is beginning to cause maceration. The dressing is completely removed and the wound cleaned with Betadine solution. A dry dressing was applied.) - Lab Results Fish Bones: 11/27/18 07:36 11/27/18 07:36 Other Labs: Lab Results x24hrs 11/27/18 11/27/18 11/27/18 Range/Units 07:36 07:36 07:36 WBC 6.6 (4.8-10.8) x10^3/uL RBC 4.06 L (4.20-5.40) 10^6/uL Hgb 11.1 L (12.0-16.0) g/dL Hct 35.6 L (37.0-47.0) % MCV 87.7 (81.0-99.0) fL MCH 27.3 (27.0-31.0) pg MCHC 31.2 L (32.0-36.0) g/dL RDW 23.3 H (12.0-15.0) % Plt Count 162 (130-450) 10^3/uL MPV 7.1 L (7.9-10.8) fL Neut # (Auto) 5.2 (1.5-6.6) 10^3/uL Lymph # (Auto) 0.8 L (1.5-3.5) 10^3/uL [place] # (Auto) 0.5 (0.0-1.0) 10^3/uL Eos # (Auto) 0.1 (0.0-0.7) 10^3/uL Baso # (Auto) 0.0 (0.0-0.1) 10^3/uL Absolute Nucleated RBC 0.00 x10^3/uL Nucleated RBC % 0.0 /100WBC Manual Slide Review Indicated WBC Morphology NORMAL APPEARANCE (NORMAL) Platelet Estimate NORMAL (130-450,000) (NORMAL) Platelet Morphology NORMAL APPEARANCE (NORMAL) RBC Morph Micro Appear 1+ POLYCHROMASIA (NORMAL) PT 12.3 (9.9-12.6) secs INR 1.1 (0.8-1.2) Sodium 136 (135-145) mmol/L Potassium 3.9 (3.5-5.0) mmol/L Chloride 101 (101-111) mmol/L Carbon Dioxide 24 (21-32) mmol/L Anion Gap 11.0 (6-13) BUN 6 (6-20) mg/dL Creatinine 0.5 (0.4-1.0) mg/dL Estimated GFR (MDRD) 125 (>89) Glucose 116 H (70-100) mg/dL Calcium 8.4 L (8.5-10.3) mg/dL Magnesium 1.9 (1.7-2.8) mg/dL Assessment/Plan - Problem List (1) Strangulated ventral hernia Impression: Post op day #2 after repair of incarcerated and strangulated incisional hernia. She is improving but is only taking minimal PO. Passing flatus but no bowel movement. Will work with PT again today as she is not quite steady on her feet. If she continues to improve, we could consider discharge tomorrow.
[2018-11-27] MEDS: ALBUTEROL NEB 2.5 MG/3 ML INH PRN (20:25)
[2018-11-27] MEDS: FLUTICASONE NASAL SPRAY NAS SCH (21:35)
[2018-11-28] MEDS: NS W/20 MEQ KCL 1,000 ML IV SCH (00:35)
[2018-11-28] MEDS: ALBUTEROL NEB 2.5 MG/3 ML INH PRN (00:44)
[2018-11-28] MEDS: SODIUM CHLORIDE FLUSH 0.9% 10 ML SYRINGE IVP SCH ×4 (01:45→10:04)
[2018-11-28] MEDS: HYDROcod/ACETAM 7.5 MG/325 MG TABLET PO PRN ×3 (03:27→14:24)
[2018-11-28] MEDS: PANTOPRAZOLE 40 MG VIAL IVP SCH (06:18)
[2018-11-28] MEDS: ENOXAPARIN 40 MG/0.4 ML SYRINGE SUBQ SCH (10:03)
[2018-11-28] MEDS: buPROPion XL 150 MG TABLET PO SCH (10:03)
[2018-11-28] MEDS: GLIMEPIRIDE 2 MG TABLET PO SCH (10:03)
[2018-11-28] MEDS: CALCITONIN NASAL SPRAY NAS SCH (10:03)
[2018-11-28] MEDS: CETIRIZINE 10 MG TABLET PO SCH (10:03)
[2018-11-28] MEDS: CHOLECALCIFEROL 1,000 UNIT TABLET PO SCH (10:03)
[2018-11-28] MEDS: TIMOLOL 0.5% OPHTH DROPS EACHEYE SCH (10:04)
[2018-11-28] MEDS: METOPROLOL TARTRATE 50 MG TABLET PO SCH (10:04)
[2018-11-28] MEDS: predniSONE 20 MG TABLET PO SCH (10:04)
[2018-11-28] MEDS: SACCHAROMYCES BOULARDII 250 MG CAPSULE PO SCH (10:04)
[2018-11-28] MEDS ORDERED: MAGNESIUM SULFATE 2 GRAM 2 GM/50 ML BAG IV ONE (13:00)
--- NOTE | 2018-11-28 13:29 | DISCHARGE SUMMARY ---
"Discharge Summary Admit Date: 11/25/18 Discharge Date: 11/28/18 Discharging Provider: Salvatore Code Status: Do Not Attempt Resuscitation Condition at Discharge: Fair Discharge Disposition: 01 Home, Self Care - DIAGNOSES Admission Diagnoses: Incarcerated and strangulated hernia Discharge Diagnoses with Status of Each Condition: Incarcerated and strangulated incisional hernia - HPI History of Present Illness: Belkis is a vipin 63 year old lady who presented to the ED on the date of admission complaining of nausea and vomiting associated with abdominal pain and abdominal mass. - CONSULTS | PROCEDURES Consultations: None Procedures: Exploratory laparotomy with liberation of incarcerated bowel and repair of incisional hernia - HOSPITAL COURSE Hospital Course: Belkis was admitted through the ED and taken directly to the operating room where Dr. Cervantes performed a incisional hernia repair with mesh. She was taken to the Med/Surg unit in the post operative period for convalesence and supportive care. On post op day #1 her pain seemed to be poorly controlled and she remained nauseated. By post op day #2, she was able to tolerate oral intake and her nausea had resolved. Today she has eaten a regular breakfast and as walked the mcrae with only the assistance of the walker. She feels she is back to her baseline level of functioning. She tells me her pain is well controlled and she feels comfortable with her wound care. - ALLERGIES Allergies/Adverse Reactions: Allergies Allergy/AdvReac Type Severity Reaction Status Date / Time droperidol [From Inapsine] Allergy Severe EPS Verified 11/25/18 15:23 ibuprofen [From Motrin] Allergy Severe Anaphylaxis Verified 11/25/18 15:23 peanut Allergy Severe Anaphylaxis Verified 11/25/18 15:23 shellfish derived Allergy Severe Anaphylaxis Verified 11/25/18 15:23 [id number]-[id number]-[id number] Reductase Allergy Severe muscle pain Verified 11/25/18 15:23 Inhibitor amoxicillin [Amoxicillin] Allergy Intermediate Hives Verified 11/25/18 15:23 cefazolin Allergy Intermediate Hives Verified 11/25/18 15:23 Cephalosporins Allergy Intermediate Hives Verified 11/25/18 15:23 clindamycin Allergy Intermediate Hives Verified 11/25/18 15:23 cyclobenzaprine Allergy Intermediate Hives/night Verified 11/25/18 15:23 [Cyclobenzaprine] castaneda erythromycin base Allergy Intermediate Hives Verified 11/25/18 15:23 [Erythromycin Base] potassium clavulanate * Allergy Intermediate Hives Verified 11/25/18 15:23 [From Augmentin] ketorolac tromethamine * Allergy Anaphylaxis Verified 11/25/18 15:23 [From Toradol] adhesive tape AdvReac Severe BLISTERS Verified 11/26/18 07:15 duloxetine AdvReac Severe Suicidal Verified 11/25/18 15:23 etanercept [From Enbrel] AdvReac Severe Nausea/vomm Verified 11/25/18 15:23 iting/cramp s methotrexate AdvReac Severe N/V/Cramps Verified 11/25/18 15:23 NSAIDS (Non-Steroidal AdvReac Severe Anaphylaxis Verified 11/25/18 15:23 Anti-Inflamma prochlorperazine AdvReac Severe EPS Verified 11/25/18 15:23 pseudoephedrine AdvReac Severe Tachycardia Verified 11/25/18 15:23 sumatriptan AdvReac Severe Widened QRS Verified 11/25/18 15:23 doxycycline AdvReac Intermediate Hives Verified 11/25/18 15:23 gabapentin AdvReac Intermediate Gait Verified 11/25/18 15:23 disturbance latex AdvReac Intermediate Sensitivity Verified 11/25/18 15:23 morphine AdvReac Unknown Verified 11/25/18 15:23 prochlorperazine edisylate * AdvReac Unknown Verified 11/25/18 15:23 [From Compazine] prochlorperazine maleate * AdvReac Unknown Verified 11/25/18 15:23 [From Compazine] promethazine [From Phenergan] AdvReac Hallucinati Verified 11/25/18 15:23 ons - MEDICATIONS Home Medications: Ambulatory Orders Medication Instructions Recorded Confirmed Aspirin [Aspirin EC] 650 mg PO 0800,1200,1600,2000 05/29/13 11/25/18 Metoprolol Tartrate 25 mg PO BID 05/29/13 11/25/18 Potassium Chloride 20 meq PO DAILY PRN 05/29/13 11/25/18 Glimepiride 1 mg PO QDBREAKFAST 03/03/17 11/25/18 metFORMIN [Glucophage] 1,000 mg PO BID 03/03/17 11/25/18 Fluticasone [Flonase] 2 sprays MATT QPM 11/26/17 11/25/18 Propylene Glycol/Peg 400/Pf 1 drops EACHEYE QID PRN 11/26/17 11/25/18 [Systane 0.3-0.4% Eye Drop] Timolol 0.5% Ophth Drops [Timoptic 1 drops EACHEYE BID 11/26/17 11/25/18 0.5% Ophth Drops] Nystatin [Nystop] 1 applic TOP QID PRN bottle 11/27/17 11/25/18 Hydrocodone/Acetaminophen [Vicodin 1 each PO TID PRN 03/08/18 11/25/18 Es 7.5-300 mg Tablet] Cholecalciferol (Vitamin D3) 6,000 unit PO DAILY 05/03/18 11/25/18 [Vitamin D3] Esomeprazole Magnesium [Nexium] 40 mg PO DAILY 05/03/18 11/25/18 Furosemide [Lasix] 40 mg PO DAILY PRN 05/03/18 11/25/18 Ondansetron HCl [Zofran] 4 mg PO QID PRN 05/03/18 11/25/18 Saccharomyces Boulardii [Florastor] 250 mg PO DAILY 05/03/18 11/25/18 Cetirizine [ZyrTEC] 10 mg PO DAILY 09/06/18 11/25/18 buPROPion [Wellbutrin Xl] 150 mg PO BID 09/06/18 11/25/18 predniSONE [Deltasone] 20 mg PO DAILY 09/06/18 11/25/18 HYDROmorphone [Dilaudid] 2 - 4 mg PO Q4-6H PRN #20 tablet 09/28/18 11/25/18 Calcitonin [Fortical] 1 sprays MATT DAILY 10/25/18 11/25/18 - PHYSICAL EXAM AT DISCHARGE General Appearance: positive: No acute distress, Alert Eyes Bilateral: positive: Normal inspection, PERRL, EOMI ENT: positive: ENT inspection nml, No signs of dehydration Neck: positive: Nml inspection Respiratory: positive: Chest non-tender, No respiratory distress, Breath sounds nml Cardiovascular: positive: Regular rate & rhythm Abdomen: positive: Nml bowel sounds, No distention, Tenderness (Appropriately tender a the site of the incision), Other (The wound is clean and painted with betadine. There is no visible drainage on the dressing though it was changed early this morning.) - LABS Result Diagrams: 11/27/18 07:36 11/27/18 07:36 - QUALITY (Female Hip Fx Only) Was patient sent home on osteoporosis medication?: No - FOLLOW UP Follow Up: Belkis will recieve an infusion of magnesium here in the hospital prior to discharge. This is usually done at the MAC unit each Thursday but she will need to forego tomorrow's appointment and rest. She will continue to wear her binder at home and continue all of her usual home medications. She will change the dressing once daily and paint the wound with betadine before applying dry gauze. She is scheduled to follow up with Dr. Cervantes in our office on December 10. - TIME SPENT Time Spent in Discharge (Minutes): 30"
[2018-11-28] MEDS ORDERED: SODIUM CHLORIDE FLUSH 0.9% 10 ML SYRINGE ONE (13:42)
[2018-11-28] MEDS: SODIUM CHLORIDE FLUSH 0.9% 10 ML SYRINGE IVP PRN (14:45)
[2018-11-28 16:05] VITALS: BP 157/86
--- NOTE | 2018-12-03 11:02 | Discharge Plan ---
Discharge Plan Disposition: Home, Self Care Condition: Fair Prescriptions: Hydrocodone/Acetaminophen [Hydrocodone-Acetamin 7.5-300] 1 each PO Q4HR PRN #20 tablet PRN Reason: Abdominal Pain Diet: Regular Activity Restrictions: Do not lift more than 5 pounds Shower Restrictions: No Driving Restrictions: Yes Assistance Devices: Walker Weight Bearing: Full Weight Instruction Topics: Acetaminophen Hydrocodone tablets or capsules, Pain Management Post Surg, Hernia Repair Open Dc, Hernia Surg Repair No Smoking: If you smoke, Please STOP! Call for help. Follow-up with: IGRMA LOPEZ MD [Primary Care Provider] - Abdi Cervantes MD [Provider Admit Priv/Credential] -
== END 2018-11-28 16:00 | disposition home or self-care (01) | DRG 355 ==
LOC: EDUNIT# → ED 15:13 → MS2 19:00
PROVIDERS: ADMIT Surgery; ATTEND Surgery
PROC: 0WUF0JZ Supplement Abdominal Wall with Synthetic Substitute, Open Approach (ICD-10-PCS; principal; 2018-11-25 19:30)
DX: K43.6 Other and unspecified ventral hernia with obstruction, without gangrene (principal); K43.0 Incisional hernia with obstruction, without gangrene; R26.2 Difficulty in walking, not elsewhere classified; I11.0 Hypertensive heart disease with heart failure; I50.9 Heart failure, unspecified; K52.9 Noninfective gastroenteritis and colitis, unspecified; E66.9 Obesity, unspecified; F17.200 Nicotine dependence, unspecified, uncomplicated; E11.9 Type 2 diabetes mellitus without complications; K21.9 Gastro-esophageal reflux disease without esophagitis; K58.0 Irritable bowel syndrome with diarrhea; J32.9 Chronic sinusitis, unspecified; F32.9 Major depressive disorder, single episode, unspecified; F41.9 Anxiety disorder, unspecified; F42.9 Obsessive-compulsive disorder, unspecified; Z68.43 Body mass index [BMI] 50.0-59.9, adult; F17.210 Nicotine dependence, cigarettes, uncomplicated; H57.89 Other specified disorders of eye and adnexa; Z66 Do not resuscitate; Z90.49 Acquired absence of other specified parts of digestive tract; Z90.710 Acquired absence of both cervix and uterus; Z79.82 Long term (current) use of aspirin; Z79.899 Other long term (current) drug therapy; Z79.84 Long term (current) use of oral hypoglycemic drugs; Z79.52 Long term (current) use of systemic steroids; Z86.19 Personal history of other infectious and parasitic diseases
CPT/HCPCS: 36415; 74177; 80048; 80053; 81001; 83690; 83735; 84484; 85025; 85610; 94640; 96365; 96367; 96375; 96376; 97161; 99284; A9270; C1781; J0131; J1170; J1650; J3370; J3490; J7120; J7512; Q9967; 81003; 87086; 96361; 96374; 99283

== ENCOUNTER 2018-12-19 20:35 | Inpatient (IN) | payer MEDICARE, MEDICAID ==
[2018-12-19] MEDS ORDERED: HYDROcod/ACETAM 5/325 MG TABLET PO STA ×2 (21:04→23:54)
--- NOTE | 2018-12-19 21:05 | ED Physician Documentation ---
PD HPI ABD PAIN - Stated complaint Stated Complaint: PO ABD PX/FEVER/OOZE - Chief complaint Chief Complaint: Fever - History obtained from History obtained from: Patient - History of Present Illness Timing - onset: Yesterday (63-year-old woman with recent incarcerated umbilical hernia repair. It sounds like she developed a postoperative seroma and over the last day has had increased pain with a fever to 101.6 and more foul-smelling drainage.) Review of Systems Ten Systems: 10 systems reviewed and negative Constitutional: reports: Fever, Chills, Sweats Throat: denies: Sore throat Respiratory: denies: Cough GI: reports: Abdominal Pain. 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: Ovarian cysts, Other : Incontinence HEENT: Chronic vision loss, Chronic sinusitis Psych: Depression, Anxiety, Obsessive compulsive disorder Musculoskeletal: Osteoarthritis Derm: Other - Past Surgical History Past Surgical History: Yes General: Cholecystectomy, Appendectomy, Bowel surgery, Other Ortho: Knee replacement /VOCATIONAL DIRECTOR: 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, Oophrectomy Cardiovascular: Cardiac catheterization HEENT: Tonsil/Adenoidectomy - Present Medications Home Medications: Ambulatory Orders Medication Instructions Recorded Confirmed RX: Aspirin [Aspirin EC] 650 mg PO 0800,1200,1600,2000 05/29/13 12/19/18 RX: Metoprolol Tartrate 25 mg PO BID 05/29/13 12/19/18 RX: Potassium Chloride 20 meq PO DAILY PRN 05/29/13 12/19/18 RX: Glimepiride 1 mg PO QDBREAKFAST 03/03/17 12/19/18 RX: metFORMIN [Glucophage] 1,000 mg PO BID 03/03/17 12/19/18 RX: Fluticasone [Flonase] 2 sprays MATT QPM 11/26/17 12/19/18 RX: Propylene Glycol/Peg 400/Pf 1 drops EACHEYE QID PRN 11/26/17 12/19/18 [Systane 0.3-0.4% Eye Drop] RX: Timolol 0.5% Ophth Drops 1 drops EACHEYE BID 11/26/17 12/19/18 [Timoptic 0.5% Ophth Drops] RX: Nystatin [Nystop] 1 applic TOP QID PRN bottle 11/27/17 12/19/18 Hydrocodone/Acetaminophen [Vicodin 1 each PO TID PRN 03/08/18 12/19/18 Es 7.5-300 mg Tablet] Cholecalciferol (Vitamin D3) 6,000 unit PO DAILY 05/03/18 12/19/18 [Vitamin D3] Esomeprazole Magnesium [Nexium] 40 mg PO DAILY 05/03/18 12/19/18 Furosemide [Lasix] 40 mg PO DAILY PRN 05/03/18 12/19/18 Ondansetron HCl [Zofran] 4 mg PO QID PRN 05/03/18 12/19/18 Saccharomyces Boulardii [Florastor] 250 mg PO DAILY 05/03/18 12/19/18 Cetirizine [ZyrTEC] 10 mg PO DAILY 09/06/18 12/19/18 RX: predniSONE [Deltasone] 20 mg PO DAILY 09/06/18 12/19/18 buPROPion [Wellbutrin Xl] 150 mg PO BID 09/06/18 12/19/18 HYDROmorphone [Dilaudid] 2 - 4 mg PO Q4-6H PRN #20 tablet 09/28/18 12/19/18 Calcitonin [Fortical] 1 sprays MATT DAILY 10/25/18 12/19/18 Hydrocodone/Acetaminophen 1 each PO Q4HR PRN #20 tablet 11/28/18 12/19/18 [Hydrocodone-Acetamin 7.5-300] - Allergies Allergies/Adverse Reactions: Allergies Allergy/AdvReac Type Severity Reaction Status Date / Time droperidol [From Inapsine] Allergy Severe EPS Verified 12/19/18 20:48 ibuprofen [From Motrin] Allergy Severe Anaphylaxis Verified 12/19/18 20:48 peanut Allergy Severe Anaphylaxis Verified 12/19/18 20:48 shellfish derived Allergy Severe Anaphylaxis Verified 12/19/18 20:48 [id number]-Wil-[id number] Reductase Allergy Severe muscle pain Verified 12/19/18 20:48 Inhibitor amoxicillin [Amoxicillin] Allergy Intermediate Hives Verified 12/19/18 20:48 cefazolin Allergy Intermediate Hives Verified 12/19/18 20:48 Cephalosporins Allergy Intermediate Hives Verified 12/19/18 20:48 clindamycin Allergy Intermediate Hives Verified 12/19/18 20:48 cyclobenzaprine Allergy Intermediate Hives/night Verified 12/19/18 20:48 [Cyclobenzaprine] castaneda erythromycin base Allergy Intermediate Hives Verified 12/19/18 20:48 [Erythromycin Base] potassium clavulanate * Allergy Intermediate Hives Verified 12/19/18 20:48 [From Augmentin] ketorolac tromethamine * Allergy Anaphylaxis Verified 12/19/18 20:48 [From Toradol] adhesive tape AdvReac Severe BLISTERS Verified 12/19/18 20:48 duloxetine AdvReac Severe Suicidal Verified 12/19/18 20:48 etanercept [From Enbrel] AdvReac Severe Nausea/vomm Verified 12/19/18 20:48 iting/cramp s methotrexate AdvReac Severe N/V/Cramps Verified 12/19/18 20:48 NSAIDS (Non-Steroidal AdvReac Severe Anaphylaxis Verified 12/19/18 20:48 Anti-Inflamma prochlorperazine AdvReac Severe EPS Verified 12/19/18 20:48 pseudoephedrine AdvReac Severe Tachycardia Verified 12/19/18 20:48 sumatriptan AdvReac Severe Widened QRS Verified 12/19/18 20:48 doxycycline AdvReac Intermediate Hives Verified 12/19/18 20:48 gabapentin AdvReac Intermediate Gait Verified 12/19/18 20:48 disturbance latex AdvReac Intermediate Sensitivity Verified 12/19/18 20:48 morphine AdvReac Unknown Verified 12/19/18 20:48 prochlorperazine edisylate * AdvReac Unknown Verified 12/19/18 20:48 [From Compazine] prochlorperazine maleate * AdvReac Unknown Verified 12/19/18 20:48 [From Compazine] promethazine [From Phenergan] AdvReac Hallucinati Verified 12/19/18 20:48 ons - Social History Does the pt smoke?: Yes Smoking Status: Current every day smoker Does the pt drink ETOH?: Yes Does the pt have substance abuse?: No - Immunizations Immunizations are current?: Yes - POLST Patient has POLST: Yes POLST Status: DNR PD ED PE NORMAL - Vitals Vital signs reviewed: Yes - General General: Alert and oriented X 3, No acute distress - HEENT HEENT: PERRL, EOMI - Neck Neck: Supple, no meningeal sign, No bony TTP - Cardiac Cardiac: RRR, No murmur - Respiratory Respiratory: No respiratory distress, Clear bilaterally - Abdomen Abdomen: Normal bowel sounds, Soft, Other (There is a midline periumbilical incision with a very small opening in it that is draining foul-smelling drainage that is purulent with mild surrounding cellulitis. There is no diffuse abdominal tenderness.) - Back Back: No CVA TTP, No spinal TTP - Derm Derm: Normal color, Warm and dry - Extremities Extremities: No edema, No calf tenderness / cord - Neuro Neuro: Alert and oriented X 3, Normal speech Results - Vitals Vitals: Vital Signs - 24 hr 12/19/18 20:35 Temperature 37.3 C Heart Rate 96 Respiratory 18 Rate Blood Pressure 131/81 H O2 Saturation 97 Oxygen O2 Source [Without Activity] Room air O2 Source Room air - Labs Labs: Microbiology 12/19/18 21:03 Wound Culture - Preliminary Abdomen Laboratory Tests 12/19/18 12/19/18 12/19/18 21:15 21:15 21:15 WBC 14.9 H RBC 4.80 Hgb 12.9 Hct 42.5 MCV 88.5 MCH 26.9 L MCHC 30.4 L RDW 20.4 H Plt Count 392 MPV 9.0 Neut # (Auto) 13.0 H Lymph # (Auto) 0.8 L [place] # (Auto) 0.9 Eos # (Auto) 0.0 Baso # (Auto) 0.1 Absolute Nucleated RBC 0.00 Nucleated RBC % 0.0 Manual Slide Review Indicated WBC Morphology NORMAL APPEARANCE Platelet Estimate NORMAL (130-450,000) Platelet Morphology NORMAL APPEARANCE RBC Morph Micro Appear 1+ POLYCHROMASIA Sodium 137 Potassium 4.2 Chloride 96 L Carbon Dioxide 26 Anion Gap 15.0 H BUN 11 Creatinine 0.7 Estimated GFR (MDRD) 85 L Glucose 198 H Lactic Acid 2.7 H Calcium 9.2 Magnesium Total Bilirubin 0.6 AST 15 ALT 17 Alkaline Phosphatase 101 Total Protein 7.0 Albumin 3.7 Globulin 3.3 Albumin/Globulin Ratio 1.1 Lipase 34 12/19/18 21:15 WBC RBC Hgb Hct MCV MCH MCHC RDW Plt Count MPV Neut # (Auto) Lymph # (Auto) [place] # (Auto) Eos # (Auto) Baso # (Auto) Absolute Nucleated RBC Nucleated RBC % Manual Slide Review WBC Morphology Platelet Estimate Platelet Morphology RBC Morph Micro Appear Sodium Potassium Chloride Carbon Dioxide Anion Gap BUN Creatinine Estimated GFR (MDRD) Glucose Lactic Acid Calcium Magnesium 1.0 L* Total Bilirubin AST ALT Alkaline Phosphatase Total Protein Albumin Globulin Albumin/Globulin Ratio Lipase PD MEDICAL DECISION MAKING - ED course ED course: 63-year-old woman who had a incarcerated strangulated umbilical hernia repaired a few weeks ago presents with fever and wound drainage consistent with an infected seroma. A culture was taken during examination. Resulted I spoke with her surgeon, Dr. Cervantes at 9:50 PM. We agreed on levofloxacin and vancomycin noting multiple antibiotic allergies and antibiotics she had received in the past without issue. He will be in shortly to incise and drain the seroma. And admit her. Departure - Departure Disposition: 66 [facility] DC/Xfer Clinical Impression: Infected seroma, postoperative, Abdominal wall cellulitis, Diabetes, Hypomagnesemia Condition: Serious
[2018-12-19 21:24] LABS: BASOPHILS # (AUTO) 0.1 10^3/uL (0.0-0.1); BASOPHILS % (AUTO) 0.3 %; EOSINOPHILS % (AUTO) 0.2 %; HGB - HEMOGLOBIN 12.9 g/dL (12.0-16.0); LYMPHOCYTES # (AUTO) 0.8 10^3/uL (1.5-3.5); LYMPHOCYTES % (AUTO) 5.4 %; MEAN CORPUSCULAR HEMOGLOBIN 26.9 pg (27.0-31.0); MEAN CORPUSCULAR HGB CONC 30.4 g/dL (32.0-36.0); MEAN CORPUSCULAR VOLUME 88.5 fL (81.0-99.0); MONOCYTES # (AUTO) 0.9 10^3/uL (0.0-1.0); MONOCYTES % (AUTO) 5.7 %; NEUTROPHILS % (AUTO) 87.4 %; PLT - PLATELET COUNT 392 10^3/uL (130-450); RED CELL DISTRIBUTION WIDTH 20.4 % (12.0-15.0); WHITE BLOOD COUNT 14.9 x10^3/uL (4.8-10.8)
[2018-12-19 21:35] LABS: ALBUMIN 3.7 g/dL (3.2-5.5); ALBUMIN/GLOBULIN RATIO 1.1 (1.0-2.2); BILIRUBIN,TOTAL 0.6 mg/dL (0.2-1.0); CALCIUM 9.2 mg/dL (8.5-10.3); CREATININE 0.7 mg/dL (0.4-1.0)
[2018-12-19 21:46] LABS: PLATELET ESTIMATE, MANUAL NORMAL (130-450,000) (NORMAL); PLATELET MORPHOLOGY NORMAL APPEARANCE (NORMAL)
[2018-12-19] MEDS ORDERED: levoFLOXacin 750 MG/150 ML 750 MG/150 ML BAG IV ONE (21:49)
[2018-12-19] MEDS ORDERED: VANCOMYCIN INJ 2 GM in SODIUM CHLORIDE 0.9% 500 ML IV STA (21:50)
[2018-12-19] MEDS ORDERED: MAGNESIUM SULFATE 2 GRAM 2 GM/50 ML BAG IV ONE (21:54)
[2018-12-19] MEDS: LIDOCAINE 1%-EPI 1:100000 20 ML MDV SUBQ STA ×2 (21:59→22:55)
[2018-12-19] MEDS ORDERED: ONDANSETRON 4 MG/2 ML VIAL IVP PRN (22:51)
--- NOTE | 2018-12-19 23:19 | SURGERY HX AND PHYSICAL(T) ---
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 The patient did have some clear drainage following the operation and she had been instructed to stop smoking. Surprisingly she had not stop smoking. Today the drainage went from clear yellow to purulent with a foul smell and she started having Reiger's and abdominal pain. She called me and I recommended that she come to the emergency department. I called Dr. Lauri Monsalve and explained to him that she would be coming to the hospital and when she presented to Dr. Lauri Monsalve called me and let me know she was in. Dr. Monsalve had already drawn off cultures and written for Levaquin and vancomycin. As an important piece of information I was the one that had operated on her 3 weeks ago and she had previous incisional hernia repairs done which had failed. Tonight the patient asked me why I thought this might have occurred and I explained to her in no uncertain terms that fat in the body typically does not have very good blood supply and is constantly at risk for infection. Examples that I gave her included the buttocks, the breasts, and the abdominal wall. Compound the poor blood supply with poor oxygen delivery secondary to smoking and you have a situation that is ripe for infection. To this point, her operation was approximately 3 weeks ago and she should have already healed up by now. 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: Ovarian cysts, Other Is Patient ?: No Urinary: Incontinence Musculoskeletal: Osteoarthritis Blood Disorders: None Psychiatric: Depression, Anxiety, Obsessive compulsive disorder, Other (Failed suicide attempt) General: Cholecystectomy, Appendectomy, Bowel surgery, Other Orthopedic: Knee replacement Cardiothoracic: Cardiac catheterization Eyes Ears Nose Throat (EENT): Tonsil/Adenoidectomy Smoking Status: Current every day smoker Does the pt drink ETOH?: Yes Frequency: Occasional Does the pt have substance abuse?: No - Home Meds and Allergies Home Medications: Aspirin [Aspirin EC] 650 mg PO 0800,1200,1600,2000 05/29/13 Metoprolol Tartrate 25 mg PO BID 05/29/13 Potassium Chloride 20 meq PO DAILY PRN 05/29/13 Glimepiride 1 mg PO QDBREAKFAST 03/03/17 metFORMIN [Glucophage] 1,000 mg PO BID 03/03/17 Fluticasone [Flonase] 2 sprays MATT QPM 11/26/17 Propylene Glycol/Peg 400/Pf [Systane 0.3-0.4% Eye Drop] 1 drops EACHEYE QID PRN 11/26/17 Timolol 0.5% Ophth Drops [Timoptic 0.5% Ophth Drops] 1 drops EACHEYE BID 11/26/17 Hydrocodone/Acetaminophen [Vicodin Es 7.5-300 mg Tablet] 1 each PO TID PRN 03/08/18 Cholecalciferol (Vitamin D3) [Vitamin D3] 6,000 unit PO DAILY 05/03/18 Esomeprazole Magnesium [Nexium] 40 mg PO DAILY 05/03/18 Furosemide [Lasix] 40 mg PO DAILY PRN 05/03/18 Ondansetron HCl [Zofran] 4 mg PO QID PRN 05/03/18 Saccharomyces Boulardii [Florastor] 250 mg PO DAILY 05/03/18 Cetirizine [ZyrTEC] 10 mg PO DAILY 09/06/18 buPROPion [Wellbutrin Xl] 150 mg PO BID 09/06/18 predniSONE [Deltasone] 20 mg PO DAILY 09/06/18 Calcitonin [Fortical] 1 sprays MATT DAILY 10/25/18 Allergies/Adverse Reactions: Allergies Allergy/AdvReac Type Severity Reaction Status Date / Time droperidol [From Inapsine] Allergy Severe EPS Verified 12/19/18 20:48 ibuprofen [From Motrin] Allergy Severe Anaphylaxis Verified 12/19/18 20:48 peanut Allergy Severe Anaphylaxis Verified 12/19/18 20:48 shellfish derived Allergy Severe Anaphylaxis Verified 12/19/18 20:48 Scuoivb-[id number]-[id number] Reductase Allergy Severe muscle pain Verified 12/19/18 20:48 Inhibitor amoxicillin [Amoxicillin] Allergy Intermediate Hives Verified 12/19/18 20:48 cefazolin Allergy Intermediate Hives Verified 12/19/18 20:48 Cephalosporins Allergy Intermediate Hives Verified 12/19/18 20:48 clindamycin Allergy Intermediate Hives Verified 12/19/18 20:48 cyclobenzaprine Allergy Intermediate Hives/night Verified 12/19/18 20:48 [Cyclobenzaprine] castaneda erythromycin base Allergy Intermediate Hives Verified 12/19/18 20:48 [Erythromycin Base] potassium clavulanate * Allergy Intermediate Hives Verified 12/19/18 20:48 [From Augmentin] ketorolac tromethamine * Allergy Anaphylaxis Verified 12/19/18 20:48 [From Toradol] adhesive tape AdvReac Severe BLISTERS Verified 12/19/18 20:48 duloxetine AdvReac Severe Suicidal Verified 12/19/18 20:48 etanercept [From Enbrel] AdvReac Severe Nausea/vomm Verified 12/19/18 20:48 iting/cramp s methotrexate AdvReac Severe N/V/Cramps Verified 12/19/18 20:48 NSAIDS (Non-Steroidal AdvReac Severe Anaphylaxis Verified 12/19/18 20:48 Anti-Inflamma prochlorperazine AdvReac Severe EPS Verified 12/19/18 20:48 pseudoephedrine AdvReac Severe Tachycardia Verified 12/19/18 20:48 sumatriptan AdvReac Severe Widened QRS Verified 12/19/18 20:48 doxycycline AdvReac Intermediate Hives Verified 12/19/18 20:48 gabapentin AdvReac Intermediate Gait Verified 12/19/18 20:48 disturbance latex AdvReac Intermediate Sensitivity Verified 12/19/18 20:48 morphine AdvReac Unknown Verified 12/19/18 20:48 prochlorperazine edisylate * AdvReac Unknown Verified 12/19/18 20:48 [From Compazine] prochlorperazine maleate * AdvReac Unknown Verified 12/19/18 20:48 [From Compazine] promethazine [From Phenergan] AdvReac Hallucinati Verified 12/19/18 20:48 ons - Review of Systems Constitutional: Other (I did not perform an extensive review of systems in this patient as it is diffusely positive and would not add anything to today's problem. To summarize, she has multiple medical issues and is in poor medical health. She continues to smoke. She is morbidly obese.) - Vital Signs Heart Rate: 96 Blood Pressure: 131/81 Temperature: 37.3 C Respiratory Rate: 18 O2 Saturation: 97 Weight (kg): 117.027 kg Height: 1.57 m - Physical Exam General Appearance: positive: No acute distress Eyes Bilatera: positive: No lid inflammation, Conjunctivae nml, No scleral icterus ENT: positive: Dry mucous membranes Neck: positive: Trachea midline Respiratory: positive: Chest non-tender Cardiovascular: positive: Regular rate & rhythm Abdomen: positive: Tenderness (Generalized), Other (Small open wound draining purulence the size of a pencil eraser which I opened by probing it with cotton- tipped applicators. The depth of the wound is 10 cm going to her left side of her abdomen. There was dirty brown-green foul smelling purulence expressed from the wound. The opening was opened to 1.5 cm and a Betadine soaked 4x4 was inserted fully in the wound leaving a small wick. The patient tolerated this well. A dressing was applied.) Skin: positive: Pallor (Normal for her.), Other (Numerous excoriations on her legs.) Neurologic/Psychiatric: positive: Oriented x3, Motor nml, Sensation nml, Mood/affect nml - Patient Review Patient Review: Problems were reviewed with the patient during this visit. Medications were reviewed with the patient during this visit. Allergies were reviewed this patient during this visit. Pertinent Tests Reviewed: All pertitent test for this patient were reviewed. - Assessment & Plan Assessment and Plan: I have already opened the wound to allow for better drainage and have probed it with a cotton-tipped applicator. It is at least 10 cm in depth going off to the left side of her abdomen. The wound was packed with Betadine soaked gauze which will be removed tomorrow. A more extensive evaluation of the wound needs to be performed and this may be done via CT scan or opening her wound widely and exploring it operatively. Once we have an idea of what her wound size is then we can ask for a wound consultation to determine whether or not the wound VAC would be appropriate in her. Additionally, and importantly, the patient has been started on vancomycin as well as Levaquin (the Gram stain came back positive for gram-positive cocci) and she is not to miss a dose. Labs have been ordered in the morning. Additionally PT and OT have been ordered to help with her mobilization as it is normally not very good. 45 minutes of [id number] time spent with the patient, the majority of which was spent in discussion, opening of the wound, coordination of care, and completion of the requisite paperwork Arabella disclaimer: This document was created in part using voice recognition technology. Because of the inherent limitations of the system ([employer]'s [employer] Dict[employer] user manual states that the licensee understands that speech recognition is a statistical process and that recognition errors are inherent in the process), occasional same sounding word substitutions and grammatical errors do occur and persist despite proofreading. Please read this document for context.
[2018-12-20] MEDS: SODIUM CHLORIDE FLUSH 0.9% 10 ML SYRINGE IVP SCH ×3 (01:05→16:36)
[2018-12-20] MEDS: SODIUM CHLORIDE FLUSH 0.9% 10 ML SYRINGE IVP PRN (01:52)
[2018-12-20] MEDS: D5NS W/20 MEQ KCL 1,000 ML IV SCH ×2 (02:29→17:12)
[2018-12-20 05:08] LABS: HGB - HEMOGLOBIN 11.6 g/dL (12.0-16.0)
[2018-12-20 05:13] LABS: BASOPHILS % (AUTO) 0.3 %; EOSINOPHILS # (AUTO) 0.1 10^3/uL (0.0-0.7); EOSINOPHILS % (AUTO) 0.4 %; LYMPHOCYTES # (AUTO) 1.2 10^3/uL (1.5-3.5); LYMPHOCYTES % (AUTO) 10.5 %; MEAN CORPUSCULAR HEMOGLOBIN 26.8 pg (27.0-31.0); MEAN CORPUSCULAR HGB CONC 30.4 g/dL (32.0-36.0); MEAN CORPUSCULAR VOLUME 88.2 fL (81.0-99.0); MONOCYTES % (AUTO) 8.3 %; NEUTROPHILS # (AUTO) 9.3 10^3/uL (1.5-6.6); NEUTROPHILS % (AUTO) 79.7 %; PLT - PLATELET COUNT 344 10^3/uL (130-450); RED BLOOD COUNT 4.33 10^6/uL (4.20-5.40); RED CELL DISTRIBUTION WIDTH 20.1 % (12.0-15.0); WHITE BLOOD COUNT 11.7 x10^3/uL (4.8-10.8)
[2018-12-20 05:20] LABS: ALBUMIN 2.9 g/dL (3.2-5.5); BILIRUBIN,TOTAL 0.4 mg/dL (0.2-1.0); CALCIUM 8.5 mg/dL (8.5-10.3); CREATININE 0.6 mg/dL (0.4-1.0); MAGNESIUM 1.6 mg/dL (1.7-2.8); TOTAL PROTEIN 5.9 g/dL (6.7-8.2)
[2018-12-20 06:10] LABS: RBC MORPHOLOGY (MULTIPLE) 1+ ANISOCYTOSIS (NORMAL)
[2018-12-20 06:11] LABS: PLATELET ESTIMATE, MANUAL NORMAL (130-450,000) (NORMAL); PLATELET MORPHOLOGY NORMAL APPEARANCE (NORMAL)
[2018-12-20] MEDS: PANTOPRAZOLE 40 MG TABLET PO SCH ×2 (06:33→11:25)
[2018-12-20] MEDS: ASPIRIN 325 MG TABLET PO SCH (07:05)
[2018-12-20] MEDS: INSULIN ASPART 300 UNIT/3 ML PEN SUBQ SCH ×4 (07:55→20:39)
[2018-12-20] MEDS: POLYETHYLENE GLYCOL 3350 17 GM PACKET PO SCH (08:22)
[2018-12-20] MEDS: ENOXAPARIN 40 MG/0.4 ML SYRINGE SUBQ SCH (08:22)
[2018-12-20] MEDS: MAGNESIUM SULFATE 2 GRAM 2 GM/50 ML BAG IV SCH (08:22)
[2018-12-20] MEDS ORDERED: FUROSEMIDE 40 MG TABLET PO PRN (09:27)
[2018-12-20] MEDS ORDERED: PROPYLENE GLYCOL EACHEYE PRN (09:27)
[2018-12-20] MEDS ORDERED: PEG EACHEYE PRN (09:27)
[2018-12-20] MEDS ORDERED: POTASSIUM CHLORIDE 10 MEQ CAPSULE PO PRN (09:27)
[2018-12-20] MEDS ORDERED: NYSTATIN POWDER 15 GM TOP PRN (09:27)
--- NOTE | 2018-12-20 09:35 | PROVIDER PROGRESS NOTE ---
Subjective - General Admit Date: 12/19/18 Procedure Date: 11/25/18 Post Op Days: 25 Procedure Performed: Incarcerated and strangulated recurrent incisional herniorrhaphy with mesh - Review of Systems Wound/Incisions: positive: Drainage (Foul smelling) General: positive: Weakness HEENT: positive: No symptoms Pulmonary: positive: Shortness of breath (Chronic) Cardiovascular: positive: No symptoms Gastrointestinal: positive: Nausea, Abdominal pain (Upper abdomen.) Objective - Patient Data Reviewed Vital Signs: Yes Vital Signs: Vital Signs x48h Temp Pulse Resp BP Pulse Ox 12/20/18 08:00 37.7 C H 104 H 16 106/59 L 94 Weight: Weight 12/18/18 12/19/18 12/20/18 23:59 23:59 23:59 Weight (kg) 117.027 kg 121.5 kg Intake & Output: Intake and Output Totals x24h 12/18/18 12/19/18 12/20/18 23:59 23:59 23:59 Intake Total 1175 Output Total 200 Balance 975 - Lab Results Lab Results: 12/20/18 04:52 12/20/18 04:52 Other Lab Results: Lab Results x24hrs 12/20/18 12/20/18 12/20/18 Range/Units 07:53 04:52 04:52 WBC 11.7 H (4.8-10.8) x10^3/uL RBC 4.33 (4.20-5.40) 10^6/uL Hgb 11.6 L (12.0-16.0) g/dL Hct 38.2 (37.0-47.0) % MCV 88.2 (81.0-99.0) fL MCH 26.8 L (27.0-31.0) pg MCHC 30.4 L (32.0-36.0) g/dL RDW 20.1 H (12.0-15.0) % Plt Count 344 (130-450) 10^3/uL MPV 9.0 (7.9-10.8) fL Neut # (Auto) 9.3 H (1.5-6.6) 10^3/uL Lymph # (Auto) 1.2 L (1.5-3.5) 10^3/uL [place] # (Auto) 1.0 (0.0-1.0) 10^3/uL Eos # (Auto) 0.1 (0.0-0.7) 10^3/uL Baso # (Auto) 0.0 (0.0-0.1) 10^3/uL Absolute Nucleated RBC 0.00 x10^3/uL Nucleated RBC % 0.0 /100WBC Manual Slide Review Indicated WBC Morphology NORMAL APPEARANCE (NORMAL) Platelet Estimate NORMAL (130-450,000) (NORMAL) Platelet Morphology NORMAL APPEARANCE (NORMAL) RBC Morph Micro Appear 1+ ANISOCYTOSIS (NORMAL) Sodium 140 (135-145) mmol/L Potassium 3.5 (3.5-5.0) mmol/L Chloride 97 L (101-111) mmol/L Carbon Dioxide 28 (21-32) mmol/L Anion Gap 15.0 H (6-13) BUN 7 (6-20) mg/dL Creatinine 0.6 (0.4-1.0) mg/dL Estimated GFR (MDRD) 101 (>89) Glucose 129 H (70-100) mg/dL POC Whole Bld Glucose 139 H (70 - 100) mg/dL Lactic Acid (0.5-2.2) mmol/L Calcium 8.5 (8.5-10.3) mg/dL Magnesium 1.6 L (1.7-2.8) mg/dL Total Bilirubin 0.4 (0.2-1.0) mg/dL AST 13 (10-42) IU/L ALT 13 (10-60) IU/L Alkaline Phosphatase 87 (42-121) IU/L Total Protein 5.9 L (6.7-8.2) g/dL Albumin 2.9 L (3.2-5.5) g/dL Globulin 3.0 (2.1-4.2) g/dL Albumin/Globulin Ratio 1.0 (1.0-2.2) Lipase (22-51) U/L 12/19/18 12/19/18 12/19/18 Range/Units 21:15 21:15 21:15 WBC (4.8-10.8) x10^3/uL RBC (4.20-5.40) 10^6/uL Hgb (12.0-16.0) g/dL Hct (37.0-47.0) % MCV (81.0-99.0) fL MCH (27.0-31.0) pg MCHC (32.0-36.0) g/dL RDW (12.0-15.0) % Plt Count (130-450) 10^3/uL MPV (7.9-10.8) fL Neut # (Auto) (1.5-6.6) 10^3/uL Lymph # (Auto) (1.5-3.5) 10^3/uL [place] # (Auto) (0.0-1.0) 10^3/uL Eos # (Auto) (0.0-0.7) 10^3/uL Baso # (Auto) (0.0-0.1) 10^3/uL Absolute Nucleated RBC x10^3/uL Nucleated RBC % /100WBC Manual Slide Review WBC Morphology (NORMAL) Platelet Estimate (NORMAL) Platelet Morphology (NORMAL) RBC Morph Micro Appear (NORMAL) Sodium 137 (135-145) mmol/L Potassium 4.2 (3.5-5.0) mmol/L Chloride 96 L (101-111) mmol/L Carbon Dioxide 26 (21-32) mmol/L Anion Gap 15.0 H (6-13) BUN 11 (6-20) mg/dL Creatinine 0.7 (0.4-1.0) mg/dL Estimated GFR (MDRD) 85 L (>89) Glucose 198 H (70-100) mg/dL POC Whole Bld Glucose (70 - 100) mg/dL Lactic Acid 2.7 H (0.5-2.2) mmol/L Calcium 9.2 (8.5-10.3) mg/dL Magnesium 1.0 L* (1.7-2.8) mg/dL Total Bilirubin 0.6 (0.2-1.0) mg/dL AST 15 (10-42) IU/L ALT 17 (10-60) IU/L Alkaline Phosphatase 101 (42-121) IU/L Total Protein 7.0 (6.7-8.2) g/dL Albumin 3.7 (3.2-5.5) g/dL Globulin 3.3 (2.1-4.2) g/dL Albumin/Globulin Ratio 1.1 (1.0-2.2) Lipase 34 (22-51) U/L 12/19/18 Range/Units 21:15 WBC 14.9 H (4.8-10.8) x10^3/uL RBC 4.80 (4.20-5.40) 10^6/uL Hgb 12.9 (12.0-16.0) g/dL Hct 42.5 (37.0-47.0) % MCV 88.5 (81.0-99.0) fL MCH 26.9 L (27.0-31.0) pg MCHC 30.4 L (32.0-36.0) g/dL RDW 20.4 H (12.0-15.0) % Plt Count 392 (130-450) 10^3/uL MPV 9.0 (7.9-10.8) fL Neut # (Auto) 13.0 H (1.5-6.6) 10^3/uL Lymph # (Auto) 0.8 L (1.5-3.5) 10^3/uL [place] # (Auto) 0.9 (0.0-1.0) 10^3/uL Eos # (Auto) 0.0 (0.0-0.7) 10^3/uL Baso # (Auto) 0.1 (0.0-0.1) 10^3/uL Absolute Nucleated RBC 0.00 x10^3/uL Nucleated RBC % 0.0 /100WBC Manual Slide Review Indicated WBC Morphology NORMAL APPEARANCE (NORMAL) Platelet Estimate NORMAL (130-450,000) (NORMAL) Platelet Morphology NORMAL APPEARANCE (NORMAL) RBC Morph Micro Appear 1+ POLYCHROMASIA (NORMAL) Sodium (135-145) mmol/L Potassium (3.5-5.0) mmol/L Chloride (101-111) mmol/L Carbon Dioxide (21-32) mmol/L Anion Gap (6-13) BUN (6-20) mg/dL Creatinine (0.4-1.0) mg/dL Estimated GFR (MDRD) (>89) Glucose (70-100) mg/dL POC Whole Bld Glucose (70 - 100) mg/dL Lactic Acid (0.5-2.2) mmol/L Calcium (8.5-10.3) mg/dL Magnesium (1.7-2.8) mg/dL Total Bilirubin (0.2-1.0) mg/dL AST (10-42) IU/L ALT (10-60) IU/L Alkaline Phosphatase (42-121) IU/L Total Protein (6.7-8.2) g/dL Albumin (3.2-5.5) g/dL Globulin (2.1-4.2) g/dL Albumin/Globulin Ratio (1.0-2.2) Lipase (22-51) U/L - Current Medications Current Medications: Current Medications Generic Name Dose Route Start Last Admin Trade Name Freq PRN Reason Stop Dose Admin Aspirin 650 mg 12/20/18 08:00 12/20/18 07:05 Norma PO 650 mg DAILYWM RIVERA Administration Enoxaparin Sodium 40 mg 12/20/18 09:00 12/20/18 08:22 Lovenox SUBQ 40 mg DAILY [facility]A Administration Potassium Chloride/Dextrose/Sod Cl 1,000 mls @ 100 mls/hr 12/19/18 23:00 12/20/18 02:29 IV 100 mls/hr .Q10H [facility]A Administration Magnesium Sulfate 2 gm in 50 mls @ 50 mls/hr 12/20/18 09:00 12/20/18 08:22 Magnesium Sulfate IV 12/23/18 08:59 50 mls/hr DAILY RIVERA Administration Insulin Aspart 1 - 5 unit 12/20/18 08:00 12/20/18 07:55 Novolog SUBQ Not Given 0800,1200,1700,2100 [facility] Protocol Ondansetron HCl 4 mg 12/19/18 22:51 12/20/18 01:52 Zofran Inj IVP 4 mg Q6HR PRN Administration Nausea / Vomiting Pantoprazole Sodium 40 mg 12/20/18 07:00 12/20/18 06:33 Protonix PO 40 mg QDAC RIVERA Administration Polyethylene Glycol 17 gm 12/20/18 09:00 12/20/18 08:22 Miralax PO Not Given DAILY RIVERA Sodium Chloride 10 ml 12/19/18 22:51 12/20/18 01:52 Normal Saline Flush 0.9% IVP 10 ml PRN PRN Administration NEEDED PER PROVIDER ORDERS Sodium Chloride 10 ml 12/20/18 01:00 12/20/18 08:23 Normal Saline Flush 0.9% IVP Not Given 0100,0900,1700 RIVERA - Physical Exam Wound/Incisions: positive: Drainage (Foul smelling drainage already cultured and GS showing G+ cocci). negative: Erythema General Appearance: positive: No acute distress Eyes Bilateral: positive: No lid inflammation, Conjunctivae nml, No scleral icte dale ENT: positive: Dry mucous membranes Neck: positive: Trachea midline Respiratory: positive: Breath sounds nml (Distant) Cardiovascular: positive: Regular rate & rhythm Abdomen: positive: Nml bowel sounds, Tenderness (Incisional.), Other (Very obese) Extremities: positive: Non-tender Neurologic/Psychiatric: positive: Oriented x3, Motor nml, Sensation nml, Mood/affect nml (A little nervous.) ABX Reporting Has patient been on IV antibiotics over the past 48 hours?: Yes Impression/Plan - Problem List Problem List: Hospital day 1 for infected seroma 25 days postop 1) ID Continue Vancomycin and Levaquin. Obtain CT scan of abdomen to determine extent of abscess. Considering trip to the OR for washout and place ment of foam depending on CT findings. Wound care consultation. 2) Activity PT and OT ordered. Restarted all her regular medications. To be clear: Healing will be EXTREMELY challenging in a morbidly obese, smoking, diabetic patient with questionable nutrition on steroids (with multiple other co morbidities - I just listed the ones that affect healing the most) who has had mesh placed.
[2018-12-20] MEDS ORDERED: IOVERSOL 320 100 ML VIAL IVP ONE ×2 (10:38→16:02)
[2018-12-20] MEDS ORDERED: VANCOMYCIN INJ 1.5 GM in SODIUM CHLORIDE 0.9% 500 ML IV SCH ×4 (11:00)
[2018-12-20] MEDS: CHOLECALCIFEROL 1,000 UNIT TABLET PO SCH (11:24)
[2018-12-20] MEDS: CETIRIZINE 10 MG TABLET PO SCH (11:25)
[2018-12-20] MEDS: ASPIRIN EC 325 MG TABLET PO SCH ×3 (11:25→20:37)
[2018-12-20] MEDS: CALCITONIN NASAL SPRAY NAS SCH (11:26)
--- NOTE | 2018-12-20 11:40 | CT Report ---
Reason: Infected seroma now packed with gauze - size and Procedure Date: 12/20/2018 Accession Number: [id number] / [id number] Procedure: CT - Abdomen/Pelvis W CPT Code: FULL RESULT: EXAM: CT ABDOMEN AND PELVIS EXAM DATE: 12/20/2018 11:15 AM. CLINICAL HISTORY: Infected seroma now packed with gauze - size and extent of infected seroma. COMPARISONS: ABDOMEN/PELVIS W/ 11/25/2018 4:36 PM ABDOMEN/PELVIS ANGIO 03/06/2018 8:44 AM ABD/PEL 09/17/2011 4:48 AM. TECHNIQUE: Routine helical CT imaging was performed through the abdomen and pelvis. IV contrast: OPTI 320 100 mL. Enteric contrast: No. Reconstructions: Coronal and sagittal. In accordance with CT protocol optimization, one or more of the following dose reduction techniques were utilized for this exam: automated exposure control, adjustment of mA and/or KV based on patient size, or use of iterative reconstructive technique. FINDINGS: Lung Bases: Unremarkable. Liver: Normal. No masses. Gallbladder/Bile Ducts: The patient is status post cholecystectomy with a dropped gallstone along the anterior undersurface of the left lobe of the liver, unchanged. Spleen: Normal. Pancreas: Normal. Adrenal Glands: Normal. Kidneys: Normal. No masses or hydronephrosis. Peritoneal Cavity/Bowel: A packed ventral incision is noted with no undrained fluid collection in the soft tissues superficial to the abdominal wall musculature. Seen on image 50 series 4 is a potential small collection measuring 1.8 x 1.4 cm deep to the incision and adjacent to underlying bowel, mildly tubular, best demonstrated coronally on image 12 series 6. Fat stranding is seen involving loops of bowel deep to the ventral incision. No bowel obstruction, free fluid or free air. No lymphadenopathy. Pelvic Organs: No pelvic mass or lymphadenopathy. Vasculature: No aneurysms or other significant abnormality. Bones: No significant abnormality. Other: None. IMPRESSION: No abscess in the superficial abdominal wall tissues. Small collection within the abdominal wall musculature as described above potentially amenable to conservative therapy versus aspiration. Too small for drain placement. RADIA
[2018-12-20] MEDS ORDERED: VANCOMYCIN INJ 1.75 GM in SODIUM CHLORIDE 0.9% 500 ML IV SCH (15:00)
[2018-12-20] MEDS: metFORMIN 500 MG TABLET PO SCH (16:26)
[2018-12-20] MEDS: HYDROcod/ACETAM 7.5 MG/325 MG TABLET PO PRN ×2 (16:36→20:57)
[2018-12-20] MEDS: FLUTICASONE NASAL SPRAY NAS SCH (20:38)
[2018-12-20] MEDS: buPROPion XL 150 MG TABLET PO SCH (20:38)
[2018-12-20] MEDS: ASCORBIC ACID CHEW 500 MG TABLET PO SCH (20:38)
[2018-12-20] MEDS: TIMOLOL 0.5% OPHTH DROPS EACHEYE SCH (20:40)
[2018-12-20] MEDS: METOPROLOL TARTRATE 50 MG TABLET PO SCH (20:40)
[2018-12-20] MEDS: levoFLOXacin 500 MG/100 ML 500 MG/100 ML BAG IV SCH (20:47)
[2018-12-20] MEDS: VANCOMYCIN INJ 1.75 GM in SODIUM CHLORIDE 0.9% 500 ML IV SCH (23:26)
[2018-12-21] MEDS: SODIUM CHLORIDE FLUSH 0.9% 10 ML SYRINGE IVP SCH ×3 (00:47→18:18)
[2018-12-21] MEDS: HYDROcod/ACETAM 7.5 MG/325 MG TABLET PO PRN ×4 (00:59→18:18)
[2018-12-21 05:01] LABS: ALBUMIN 2.8 g/dL (3.2-5.5); ALBUMIN/GLOBULIN RATIO 0.9 (1.0-2.2); BILIRUBIN,TOTAL 0.7 mg/dL (0.2-1.0); CALCIUM 8.3 mg/dL (8.5-10.3); CREATININE 0.6 mg/dL (0.4-1.0); MAGNESIUM 1.7 mg/dL (1.7-2.8)
[2018-12-21 05:03] LABS: BASOPHILS % (AUTO) 0.4 %; EOSINOPHILS # (AUTO) 0.2 10^3/uL (0.0-0.7); EOSINOPHILS % (AUTO) 3.2 %; HGB - HEMOGLOBIN 11.4 g/dL (12.0-16.0); LYMPHOCYTES # (AUTO) 0.9 10^3/uL (1.5-3.5); LYMPHOCYTES % (AUTO) 13.7 %; MEAN CORPUSCULAR HEMOGLOBIN 26.5 pg (27.0-31.0); MEAN CORPUSCULAR HGB CONC 29.7 g/dL (32.0-36.0); MEAN CORPUSCULAR VOLUME 89.3 fL (81.0-99.0); MEAN PLATELET VOLUME 9.2 fL (7.9-10.8); MONOCYTES # (AUTO) 0.6 10^3/uL (0.0-1.0); MONOCYTES % (AUTO) 9.1 %; NEUTROPHILS # (AUTO) 4.9 10^3/uL (1.5-6.6); NEUTROPHILS % (AUTO) 72.3 %; PLT - PLATELET COUNT 314 10^3/uL (130-450); RED CELL DISTRIBUTION WIDTH 20.7 % (12.0-15.0); WHITE BLOOD COUNT 6.8 x10^3/uL (4.8-10.8)
[2018-12-21 05:41] LABS: PLATELET ESTIMATE, MANUAL NORMAL (130-450,000) (NORMAL); PLATELET MORPHOLOGY NORMAL APPEARANCE (NORMAL); RBC MORPHOLOGY (MULTIPLE) 2+ ANISOCYTOSIS (NORMAL)
[2018-12-21] MEDS: PANTOPRAZOLE 40 MG TABLET PO SCH ×2 (06:31)
[2018-12-21] MEDS: D5NS W/20 MEQ KCL 1,000 ML IV SCH ×3 (06:31→22:24)
[2018-12-21] MEDS: INSULIN ASPART 300 UNIT/3 ML PEN SUBQ SCH ×4 (07:45→21:58)
[2018-12-21] MEDS: ASPIRIN 325 MG TABLET PO SCH (07:46)
[2018-12-21] MEDS ORDERED: GLIMEPIRIDE 2 MG TABLET PO SCH (08:00)
[2018-12-21] MEDS: metFORMIN 500 MG TABLET PO SCH ×2 (08:08→22:12)
[2018-12-21] MEDS: ASPIRIN EC 325 MG TABLET PO SCH ×4 (08:11→21:17)
[2018-12-21] MEDS: buPROPion XL 150 MG TABLET PO SCH ×2 (08:12→22:33)
[2018-12-21] MEDS: ASCORBIC ACID CHEW 500 MG TABLET PO SCH ×2 (08:12→22:33)
[2018-12-21] MEDS: CALCITONIN NASAL SPRAY NAS SCH (08:13)
[2018-12-21] MEDS: CETIRIZINE 10 MG TABLET PO SCH (08:13)
[2018-12-21] MEDS: MAGNESIUM SULFATE 2 GRAM 2 GM/50 ML BAG IV SCH (08:14)
[2018-12-21] MEDS: ENOXAPARIN 40 MG/0.4 ML SYRINGE SUBQ SCH (08:14)
[2018-12-21] MEDS: METOPROLOL TARTRATE 50 MG TABLET PO SCH ×2 (08:14→22:33)
[2018-12-21] MEDS: CHOLECALCIFEROL 1,000 UNIT TABLET PO SCH (08:14)
[2018-12-21] MEDS: SACCHAROMYCES BOULARDII 250 MG CAPSULE PO SCH (08:16)
[2018-12-21] MEDS: ZINC SULFATE 220 MG CAPSULE PO SCH (08:16)
[2018-12-21] MEDS: TIMOLOL 0.5% OPHTH DROPS EACHEYE SCH ×2 (08:16→22:35)
[2018-12-21] MEDS: predniSONE 20 MG TABLET PO SCH (08:26)
--- NOTE | 2018-12-21 09:04 | PROVIDER PROGRESS NOTE ---
Subjective - General Admit Date: 12/19/18 Procedure Date: 11/25/18 Post Op Days: 26 Procedure Performed: Incarcerated and strangulated recurrent incisional herniorrhaphy with mesh - Review of Systems Wound/Incisions: positive: Drainage (Foul smelling drainage already cultured and GS showing G+ cocci). negative: Erythema General: positive: Weakness HEENT: positive: No symptoms Pulmonary: positive: Shortness of breath (Chronic) Cardiovascular: positive: No symptoms Gastrointestinal: positive: Nausea, Abdominal pain (Upper abdomen.) Objective - Patient Data Reviewed Vital Signs: Yes Vital Signs: Vital Signs x48h Temp Pulse Resp BP BP Pulse Ox 12/21/18 08:14 137/75 H 12/21/18 08:00 36.5 C 74 20 137/75 H 97 Weight: Weight 12/19/18 12/20/18 12/21/18 23:59 23:59 23:59 Weight (kg) 117.027 kg 121.5 kg Intake & Output: Intake and Output Totals x24h 12/19/18 12/20/18 12/21/18 23:59 23:59 23:59 Intake Total 3283.333 1141.667 Output Total 750 350 Balance 2533.333 791.667 - Lab Results Lab Results: 12/21/18 04:35 12/21/18 04:35 Other Lab Results: Lab Results x24hrs 12/21/18 12/21/18 12/21/18 Range/Units 07:41 04:35 04:35 WBC 6.8 (4.8-10.8) x10^3/uL RBC 4.30 (4.20-5.40) 10^6/uL Hgb 11.4 L (12.0-16.0) g/dL Hct 38.4 (37.0-47.0) % MCV 89.3 (81.0-99.0) fL MCH 26.5 L (27.0-31.0) pg MCHC 29.7 L (32.0-36.0) g/dL RDW 20.7 H (12.0-15.0) % Plt Count 314 (130-450) 10^3/uL MPV 9.2 (7.9-10.8) fL Neut # (Auto) 4.9 (1.5-6.6) 10^3/uL Lymph # (Auto) 0.9 L (1.5-3.5) 10^3/uL [place] # (Auto) 0.6 (0.0-1.0) 10^3/uL Eos # (Auto) 0.2 (0.0-0.7) 10^3/uL Baso # (Auto) 0.0 (0.0-0.1) 10^3/uL Absolute Nucleated RBC 0.00 x10^3/uL Nucleated RBC % 0.0 /100WBC Manual Slide Review Indicated WBC Morphology NORMAL APPEARANCE (NORMAL) Platelet Estimate NORMAL (130-450,000) (NORMAL) Platelet Morphology NORMAL APPEARANCE (NORMAL) RBC Morph Micro Appear 2+ ANISOCYTOSIS (NORMAL) Sodium 141 (135-145) mmol/L Potassium 4.0 (3.5-5.0) mmol/L Chloride 104 (101-111) mmol/L Carbon Dioxide 26 (21-32) mmol/L Anion Gap 11.0 (6-13) BUN 7 (6-20) mg/dL Creatinine 0.6 (0.4-1.0) mg/dL Estimated GFR (MDRD) 101 (>89) Glucose 129 H (70-100) mg/dL POC Whole Bld Glucose 136 H (70 - 100) mg/dL Calcium 8.3 L (8.5-10.3) mg/dL Magnesium 1.7 (1.7-2.8) mg/dL Total Bilirubin 0.7 (0.2-1.0) mg/dL AST 13 (10-42) IU/L ALT 14 (10-60) IU/L Alkaline Phosphatase 80 (42-121) IU/L Total Protein 6.0 L (6.7-8.2) g/dL Albumin 2.8 L (3.2-5.5) g/dL Globulin 3.2 (2.1-4.2) g/dL Albumin/Globulin Ratio 0.9 L (1.0-2.2) Vitamin B12 (180-914) pg/mL 12/20/18 12/20/18 12/20/18 Range/Units 20:04 16:48 11:47 WBC (4.8-10.8) x10^3/uL RBC (4.20-5.40) 10^6/uL Hgb (12.0-16.0) g/dL Hct (37.0-47.0) % MCV (81.0-99.0) fL MCH (27.0-31.0) pg MCHC (32.0-36.0) g/dL RDW (12.0-15.0) % Plt Count (130-450) 10^3/uL MPV (7.9-10.8) fL Neut # (Auto) (1.5-6.6) 10^3/uL Lymph # (Auto) (1.5-3.5) 10^3/uL [place] # (Auto) (0.0-1.0) 10^3/uL Eos # (Auto) (0.0-0.7) 10^3/uL Baso # (Auto) (0.0-0.1) 10^3/uL Absolute Nucleated RBC x10^3/uL Nucleated RBC % /100WBC Manual Slide Review WBC Morphology (NORMAL) Platelet Estimate (NORMAL) Platelet Morphology (NORMAL) RBC Morph Micro Appear (NORMAL) Sodium (135-145) mmol/L Potassium (3.5-5.0) mmol/L Chloride (101-111) mmol/L Carbon Dioxide (21-32) mmol/L Anion Gap (6-13) BUN (6-20) mg/dL Creatinine (0.4-1.0) mg/dL Estimated GFR (MDRD) (>89) Glucose (70-100) mg/dL POC Whole Bld Glucose 157 H 146 H 149 H (70 - 100) mg/dL Calcium (8.5-10.3) mg/dL Magnesium (1.7-2.8) mg/dL Total Bilirubin (0.2-1.0) mg/dL AST (10-42) IU/L ALT (10-60) IU/L Alkaline Phosphatase (42-121) IU/L Total Protein (6.7-8.2) g/dL Albumin (3.2-5.5) g/dL Globulin (2.1-4.2) g/dL Albumin/Globulin Ratio (1.0-2.2) Vitamin B12 (180-914) pg/mL 12/20/18 Range/Units 04:52 WBC (4.8-10.8) x10^3/uL RBC (4.20-5.40) 10^6/uL Hgb (12.0-16.0) g/dL Hct (37.0-47.0) % MCV (81.0-99.0) fL MCH (27.0-31.0) pg MCHC (32.0-36.0) g/dL RDW (12.0-15.0) % Plt Count (130-450) 10^3/uL MPV (7.9-10.8) fL Neut # (Auto) (1.5-6.6) 10^3/uL Lymph # (Auto) (1.5-3.5) 10^3/uL [place] # (Auto) (0.0-1.0) 10^3/uL Eos # (Auto) (0.0-0.7) 10^3/uL Baso # (Auto) (0.0-0.1) 10^3/uL Absolute Nucleated RBC x10^3/uL Nucleated RBC % /100WBC Manual Slide Review WBC Morphology (NORMAL) Platelet Estimate (NORMAL) Platelet Morphology (NORMAL) RBC Morph Micro Appear (NORMAL) Sodium (135-145) mmol/L Potassium (3.5-5.0) mmol/L Chloride (101-111) mmol/L Carbon Dioxide (21-32) mmol/L Anion Gap (6-13) BUN (6-20) mg/dL Creatinine (0.4-1.0) mg/dL Estimated GFR (MDRD) (>89) Glucose (70-100) mg/dL POC Whole Bld Glucose (70 - 100) mg/dL Calcium (8.5-10.3) mg/dL Magnesium (1.7-2.8) mg/dL Total Bilirubin (0.2-1.0) mg/dL AST (10-42) IU/L ALT (10-60) IU/L Alkaline Phosphatase (42-121) IU/L Total Protein (6.7-8.2) g/dL Albumin (3.2-5.5) g/dL Globulin (2.1-4.2) g/dL Albumin/Globulin Ratio (1.0-2.2) Vitamin B12 291 (180-914) pg/mL - Current Medications Current Medications: Current Medications Generic Name Dose Route Start Last Admin Trade Name Freq PRN Reason Stop Dose Admin Hydrocodone Bitart/Acetaminophen 1 tab 12/20/18 11:05 12/21/18 04:52 [place] 7.5/325 PO 1 tab Q4HR PRN Administration ABDOMINAL PAIN Ascorbic Acid 500 mg 12/20/18 21:00 12/21/18 08:12 Vitamin C PO 500 mg BID RIVERA Administration Aspirin 650 mg 12/20/18 08:00 12/21/18 07:46 Norma PO Not Given DAILYWM RIVERA Aspirin 650 mg 12/20/18 12:00 12/21/18 08:11 Ecotrin PO 650 mg 0800,1200,1600,2000 R[facility]A Administration Bupropion HCl 150 mg 12/20/18 21:00 12/21/18 08:12 Wellbutrin Xl PO 150 mg BID RIVERA Administration Calcitonin [place] 1 sprays 12/20/18 10:00 12/21/18 08:13 Fortical MATT 1 sprays DAILY RIVERA Administration Cetirizine HCl 10 mg 12/20/18 10:00 12/21/18 08:13 Zyrtec PO 10 mg DAILY RIVERA Administration Cholecalciferol 6,000 unit 12/20/18 09:30 12/21/18 08:14 Vitamin D3 PO 6,000 unit DAILY RIVERA Administration Enoxaparin Sodium 40 mg 12/20/18 09:00 12/21/18 08:14 Lovenox SUBQ Not Given DAILY RIVERA Fluticasone Propionate 2 sprays 12/20/18 21:00 12/20/18 20:38 Flonase MATT 1 spray QPM RIVERA Administration Glimepiride 1 mg 12/21/18 08:00 12/21/18 08:12 Amaryl PO 1 mg DAILYWM RIVERA Administration Potassium Chloride/Dextrose/Sod Cl 1,000 mls @ 100 mls/hr 12/19/18 23:00 12/21/18 06:31 IV 100 mls/hr .Q10H [facility]A Administration Magnesium Sulfate 2 gm in 50 mls @ 50 mls/hr 12/20/18 09:00 12/21/18 08:14 Magnesium Sulfate IV 12/23/18 08:59 50 mls/hr DAILY [facility]A Administration Levofloxacin 500 mg in 100 mls @ 100 mls/hr 12/20/18 21:00 12/20/18 21:50 Levaquin 500 Mg/100 Ml IV 12/29/18 20:59 Infused Q24H [facility] Infusion Vancomycin HCl 1.75 gm/ Sodium 500 mls @ 250 mls/hr 12/20/18 23:00 12/21/18 02:37 Chloride IV Infused Q12H [facility] Infusion Protocol Insulin Aspart 1 - 5 unit 12/20/18 08:00 12/21/18 07:45 Novolog SUBQ Not Given 0800,1200,1700,2100 [facility] Protocol Metformin HCl 1,000 mg 12/20/18 21:00 12/21/18 08:08 Glucophage PO Not Given BID [facility] Metoprolol Tartrate 25 mg 12/20/18 21:00 12/21/18 08:14 Lopressor PO 25 mg BID [facility] Administration Ondansetron HCl 4 mg 12/19/18 22:51 12/20/18 01:52 Zofran Inj IVP 4 mg Q6HR PRN Administration Nausea / Vomiting Pantoprazole Sodium 40 mg 12/20/18 07:00 12/21/18 06:31 Protonix PO Not Given QDAC [facility]A Pantoprazole Sodium 40 mg 12/20/18 10:00 12/21/18 06:31 Protonix PO 40 mg QDAC [facility] Administration Polyethylene Glycol 17 gm 12/20/18 09:00 12/20/18 08:22 Miralax PO Not Given DAILY [facility] Prednisone 20 mg 12/21/18 09:00 12/21/18 08:26 Deltasone PO 20 mg DAILY [facility] Administration Saccharomyces Boulardii 250 mg 12/21/18 09:00 12/21/18 08:16 Florastor PO 250 mg DAILY [facility] Administration Sodium Chloride 10 ml 12/19/18 22:51 12/20/18 01:52 Normal Saline Flush 0.9% IVP 10 ml PRN PRN Administration NEEDED PER PROVIDER ORDERS Sodium Chloride 10 ml 12/20/18 01:00 12/21/18 08:16 Normal Saline Flush 0.9% IVP Not Given 0100,0900,1700 [facility] Timolol Maleate 1 drops 12/20/18 21:00 12/21/18 08:16 Timoptic 0.5% Ophth Drops EACHEYE 1 drops BID [facility] Administration Zinc Sulfate 220 mg 12/21/18 09:00 12/21/18 08:16 PO 220 mg DAILY [facility] Administration - Physical Exam Wound/Incisions: positive: Other (Repacked with wet to dry gauze) ABX Reporting Has patient been on IV antibiotics over the past 48 hours?: Yes
[2018-12-21] MEDS: VANCOMYCIN INJ 1.75 GM in SODIUM CHLORIDE 0.9% 500 ML IV SCH (10:39)
[2018-12-21 10:46] LABS: VANCOMYCIN,RANDOM 16.7 ug/mL
--- NOTE | 2018-12-21 11:23 | ANESTHESIA ---
Pre-Anesthesia VS, & Labs - Diagnosis infected abdominal wound - Procedure irrigation and debridement of abdominal surgical wound Vital Signs: Temp Pulse Resp BP Pulse Ox 36.5 C 74 20 137/75 H 97 12/21/18 08:00 12/21/18 08:00 12/21/18 08:00 12/21/18 08:14 12/21/18 08:00 Height 5 ft 2 in Weight (kg) 121.5 kg Body Mass Index 47.2 - NPO Other (cherries last at 11:00) - Is Patient ?: No - Lab Results Current Lab Results: Laboratory Tests 12/21/18 11:12: POC Whole Bld Glucose 160 H 12/21/18 10:27: Last Dose Date UNK, Last Dose Time UNK, Random Vancomycin 16.7 12/21/18 10:27: Folate 6.69 12/21/18 07:41: POC Whole Bld Glucose 136 H 12/21/18 04:35: Sodium 141, Potassium 4.0, Chloride 104, Carbon Dioxide 26, Anion Gap 11.0, BUN 7, Creatinine 0.6, Estimated GFR (MDRD) 101, Glucose 129 H, Calcium 8.3 L, Magnesium 1.7, Total Bilirubin 0.7, AST 13, ALT 14, Alkaline Phosphatase 80, Total Protein 6.0 L, Albumin 2.8 L, Globulin 3.2, Albumin/ Globulin Ratio 0.9 L 12/21/18 04:35: WBC 6.8, RBC 4.30, Hgb 11.4 L, Hct 38.4, MCV 89.3, MCH 26.5 L, MCHC 29.7 L, RDW 20.7 H, Plt Count 314, MPV 9.2, Neut # (Auto) 4.9, Lymph # (Auto) 0.9 L, [place] # (Auto) 0.6, Eos # (Auto) 0.2, Baso # (Auto) 0.0, Absolute Nucleated RBC 0.00, Nucleated RBC % 0.0, Manual Slide Review Indicated, WBC Morphology NORMAL APPEARANCE, Platelet Estimate NORMAL (130-450,000), Platelet Morphology NORMAL APPEARANCE, RBC Morph Micro Appear 2+ ANISOCYTOSIS 12/20/18 20:04: POC Whole Bld Glucose 157 H 12/20/18 16:48: POC Whole Bld Glucose 146 H 12/20/18 11:47: POC Whole Bld Glucose 149 H 12/20/18 07:53: POC Whole Bld Glucose 139 H 12/20/18 04:52: Vitamin B12 291 12/20/18 04:52: Sodium 140, Potassium 3.5, Chloride 97 L, Carbon Dioxide 28, Anion Gap 15.0 H, BUN 7, Creatinine 0.6, Estimated GFR (MDRD) 101, Glucose 129 H , Calcium 8.5, Magnesium 1.6 L, Total Bilirubin 0.4, AST 13, ALT 13, Alkaline Phosphatase 87, Total Protein 5.9 L, Albumin 2.9 L, Globulin 3.0, Albumin/Globulin Ratio 1.0 12/20/18 04:52: WBC 11.7 H, RBC 4.33, Hgb 11.6 L, Hct 38.2, MCV 88.2, MCH 26.8 L , MCHC 30.4 L, RDW 20.1 H, Plt Count 344, MPV 9.0, Neut # (Auto) 9.3 H, Lymph # (Auto) 1.2 L, [place] # (Auto) 1.0, Eos # (Auto) 0.1, Baso # (Auto) 0.0, Absolute Nucleated RBC 0.00, Nucleated RBC % 0.0, Manual Slide Review Indicated, WBC Morphology NORMAL APPEARANCE, Platelet Estimate NORMAL (130-450,000), Platelet Morphology NORMAL APPEARANCE, RBC Morph Micro Appear 1+ ANISOCYTOSIS 12/19/18 21:15: Magnesium 1.0 L* 12/19/18 21:15: Lactic Acid 2.7 H 12/19/18 21:15: Sodium 137, Potassium 4.2, Chloride 96 L, Carbon Dioxide 26, An ion Gap 15.0 H, BUN 11, Creatinine 0.7, Estimated GFR (MDRD) 85 L, Glucose 198 H , Calcium 9.2, Total Bilirubin 0.6, AST 15, ALT 17, Alkaline Phosphatase 101, Total Protein 7.0, Albumin 3.7, Globulin 3.3, Albumin/Globulin Ratio 1.1, Lipase 34 12/19/18 21:15: WBC 14.9 H, RBC 4.80, Hgb 12.9, Hct 42.5, MCV 88.5, MCH 26.9 L, MCHC 30.4 L, RDW 20.4 H, Plt Count 392, MPV 9.0, Neut # (Auto) 13.0 H, Lymph # (Auto) 0.8 L, [place] # (Auto) 0.9, Eos # (Auto) 0.0, Baso # (Auto) 0.1, Absolute Nucleated RBC 0.00, Nucleated RBC % 0.0, Manual Slide Review Indicated, WBC Morphology NORMAL APPEARANCE, Platelet Estimate NORMAL (130-450,000), Platelet Morphology NORMAL APPEARANCE, RBC Morph Micro Appear 1+ POLYCHROMASIA Fish Bones: 12/21/18 04:35 12/21/18 04:35 Home Medications and Allergies Active Medications Hydrocodone Bitart/Acetaminophen (Peever 7.5/325) 1 tab PO Q4HR PRN PRN Reason: ABDOMINAL PAIN Last Admin: 12/21/18 10:39 Dose: 1 tab Hydrocodone Bitart/Acetaminophen (Peever 7.5/325) 1 tab PO TID PRN PRN Reason: MINOR PAIN Ascorbic Acid (Vitamin C) 500 mg PO BID [facility] Last Admin: 12/21/18 08:12 Dose: 500 mg Aspirin (Norma) 650 mg PO DAILYWM [facility] Last Admin: 12/21/18 07:46 Dose: Not Given Aspirin (Ecotrin) 650 mg PO 0800,1200,1600,2000 [facility] Last Admin: 12/21/18 08:11 Dose: 650 mg Bupropion HCl (Wellbutrin Xl) 150 mg PO BID [facility] Last Admin: 12/21/18 08:12 Dose: 150 mg Calcitonin [place] (Fortical) 1 sprays MATT DAILY [facility] Last Admin: 12/21/18 08:13 Dose: 1 sprays Cetirizine HCl (Zyrtec) 10 mg PO DAILY [facility] Last Admin: 12/21/18 08:13 Dose: 10 mg Cholecalciferol (Vitamin D3) 6,000 unit PO DAILY [facility] Last Admin: 12/21/18 08:14 Dose: 6,000 unit Enoxaparin Sodium (Lovenox) 40 mg SUBQ DAILY [facility] Last Admin: 12/21/18 08:14 Dose: Not Given Fluticasone Propionate (Flonase) 2 sprays MATT QPM [facility] Last Admin: 12/20/18 20:38 Dose: 1 spray Furosemide (Lasix) 40 mg PO DAILY PRN PRN Reason: NEEDED PER PROVIDER ORDERS Glimepiride (Amaryl) 1 mg PO DAILYWM [facility] Last Admin: 12/21/18 08:12 Dose: 1 mg Potassium Chloride/Dextrose/Sod Cl () 1,000 mls @ 100 mls/hr IV .Q10H [facility] Last Admin: 12/21/18 06:31 Dose: 100 mls/hr Magnesium Sulfate (Magnesium Sulfate) 2 gm in 50 mls @ 50 mls/hr IV DAILY [facility] Stop: 12/23/18 08:59 Last Infusion: 12/21/18 10:57 Dose: Infused Levofloxacin (Levaquin 500 Mg/100 Ml) 500 mg in 100 mls @ 100 mls/hr IV Q24H [facility] Stop: 12/29/18 20:59 Last Infusion: 12/20/18 21:50 Dose: Infused Vancomycin HCl 1.75 gm/ Sodium (Chloride) 500 mls @ 250 mls/hr IV Q12H [facility]; Protocol Last Admin: 12/21/18 10:39 Dose: 250 mls/hr Insulin Aspart (Novolog) 1 - 5 unit SUBQ 0800,1200,1700,2100 [facility]; Protocol Last Admin: 12/21/18 07:45 Dose: Not Given Metformin HCl (Glucophage) 1,000 mg PO BID [facility] Last Admin: 12/21/18 08:08 Dose: Not Given Metoprolol Tartrate (Lopressor) 25 mg PO BID [facility] Last Admin: 12/21/18 08:14 Dose: 25 mg Non-Formulary Medication (Propylene Glycol/Peg 400/Pf [Systane 0.3-0.4% Eye Drop]) 1 drops EACHEYE QID PRN PRN Reason: DRYNESS Nystatin (Nystop) 1 applic TOP QID PRN PRN Reason: YEAST Ondansetron HCl (Zofran Inj) 4 mg IVP Q6HR PRN PRN Reason: Nausea / Vomiting Last Admin: 12/20/18 01:52 Dose: 4 mg Ondansetron HCl (Zofran Odt) 4 mg TL QID PRN PRN Reason: Nausea / Vomiting Pantoprazole Sodium (Protonix) 40 mg PO QDAC [facility] Last Admin: 12/21/18 06:31 Dose: Not Given Pantoprazole Sodium (Protonix) 40 mg PO QDAC [facility] Last Admin: 12/21/18 06:31 Dose: 40 mg Polyethylene Glycol (Miralax) 17 gm PO DAILY [facility] Last Admin: 12/20/18 08:22 Dose: Not Given Potassium Chloride (Micro-K) 20 meq PO DAILY PRN PRN Reason: IF TAKING LASIX Prednisone (Deltasone) 20 mg PO DAILY [facility] Last Admin: 12/21/18 08:26 Dose: 20 mg Saccharomyces Boulardii (Florastor) 250 mg PO DAILY [facility] Last Admin: 12/21/18 08:16 Dose: 250 mg Sodium Chloride (Normal Saline Flush 0.9%) 10 ml IVP PRN PRN PRN Reason: NEEDED PER PROVIDER ORDERS Last Admin: 12/20/18 01:52 Dose: 10 ml Sodium Chloride (Normal Saline Flush 0.9%) 10 ml IVP 0100,0900,1700 [facility] Last Admin: 12/21/18 08:16 Dose: Not Given Timolol Maleate (Timoptic 0.5% Ophth Drops) 1 drops EACHEYE BID [facility] Last Admin: 12/21/18 08:16 Dose: 1 drops Zinc Sulfate () 220 mg PO DAILY [facility] Last Admin: 12/21/18 08:16 Dose: 220 mg Aspirin [Aspirin EC] 650 mg PO 0800,1200,1600,2000 05/29/13 Metoprolol Tartrate 25 mg PO BID 05/29/13 Potassium Chloride 20 meq PO DAILY PRN 05/29/13 Glimepiride 1 mg PO QDBREAKFAST 03/03/17 metFORMIN [Glucophage] 1,000 mg PO BID 03/03/17 Fluticasone [Flonase] 2 sprays MATT QPM 11/26/17 Propylene Glycol/Peg 400/Pf [Systane 0.3-0.4% Eye Drop] 1 drops EACHEYE QID PRN 11/26/17 Timolol 0.5% Ophth Drops [Timoptic 0.5% Ophth Drops] 1 drops EACHEYE BID 11/26/17 Hydrocodone/Acetaminophen [Vicodin Es 7.5-300 mg Tablet] 1 each PO TID PRN 03/08/18 Cholecalciferol (Vitamin D3) [Vitamin D3] 6,000 unit PO DAILY 05/03/18 Esomeprazole Magnesium [Nexium] 40 mg PO DAILY 05/03/18 Furosemide [Lasix] 40 mg PO DAILY PRN 05/03/18 Ondansetron HCl [Zofran] 4 mg PO QID PRN 05/03/18 Saccharomyces Boulardii [Florastor] 250 mg PO DAILY 05/03/18 Cetirizine [ZyrTEC] 10 mg PO DAILY 09/06/18 buPROPion [Wellbutrin Xl] 150 mg PO BID 09/06/18 predniSONE [Deltasone] 20 mg PO DAILY 09/06/18 Calcitonin [Fortical] 1 sprays MATT DAILY 10/25/18 Allergies/Adverse Reactions: Allergies Allergy/AdvReac Type Severity Reaction Status Date / Time droperidol [From Inapsine] Allergy Severe EPS Verified 12/19/18 20:48 ibuprofen [From Motrin] Allergy Severe Anaphylaxis Verified 12/19/18 20:48 peanut Allergy Severe Anaphylaxis Verified 12/19/18 20:48 shellfish derived Allergy Severe Anaphylaxis Verified 12/19/18 20:48 Micangx-Kfm-Geu Reductase Allergy Severe muscle pain Verified 12/19/18 20:48 Inhibitor amoxicillin [Amoxicillin] Allergy Intermediate Hives Verified 12/19/18 20:48 cefazolin Allergy Intermediate Hives Verified 12/19/18 20:48 Cephalosporins Allergy Intermediate Hives Verified 12/19/18 20:48 clindamycin Allergy Intermediate Hives Verified 12/19/18 20:48 cyclobenzaprine Allergy Intermediate Hives/night Verified 12/19/18 20:48 [Cyclobenzaprine] castaneda erythromycin base Allergy Intermediate Hives Verified 12/19/18 20:48 [Erythromycin Base] potassium clavulanate * Allergy Intermediate Hives Verified 12/19/18 20:48 [From Augmentin] ketorolac tromethamine * Allergy Anaphylaxis Verified 12/19/18 20:48 [From Toradol] adhesive tape AdvReac Severe BLISTERS Verified 12/19/18 20:48 duloxetine AdvReac Severe Suicidal Verified 12/19/18 20:48 etanercept [From Enbrel] AdvReac Severe Nausea/vomm Verified 12/19/18 20:48 iting/cramp s methotrexate AdvReac Severe N/V/Cramps Verified 12/19/18 20:48 NSAIDS (Non-Steroidal AdvReac Severe Anaphylaxis Verified 12/19/18 20:48 Anti-Inflamma prochlorperazine AdvReac Severe EPS Verified 12/19/18 20:48 pseudoephedrine AdvReac Severe Tachycardia Verified 12/19/18 20:48 sumatriptan AdvReac Severe Widened QRS Verified 12/19/18 20:48 doxycycline AdvReac Intermediate Hives Verified 12/19/18 20:48 gabapentin AdvReac Intermediate Gait Verified 12/19/18 20:48 disturbance latex AdvReac Intermediate Sensitivity Verified 12/19/18 20:48 morphine AdvReac Unknown Verified 12/19/18 20:48 prochlorperazine edisylate * AdvReac Unknown Verified 12/19/18 20:48 [From Compazine] prochlorperazine maleate * AdvReac Unknown Verified 12/19/18 20:48 [From Compazine] promethazine [From Phenergan] AdvReac Hallucinati Verified 12/19/18 20:48 ons Anes History & Medical History - Medical History Cardiovascular: reports: Congestive heart failure, Hypertension Pulmonary: reports: Other Gastrointestinal: reports: GERD, Colon polyps, Chronic diarrhea, Other Urinary: reports: Incontinence Neuro: reports: None Musculoskeletal: reports: Osteoarthritis Endocrine/Autoimmune: reports: Type 2 diabetes, Other Blood Disorders: reports: None Skin: reports: Other Smoking Status: Current every day smoker Other Past Medical History: strangulated incarcerated hernia resulting in bowel obstruction. Pt continues to smoke - Surgical History General: Cholecystectomy, Appendectomy, Bowel surgery, Other Eyes Ears Nose Throat (EENT): Tonsil/Adenoidectomy Cardiothoracic: Cardiac catheterization Gynecologic: 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, Oophrectomy Orthopedic: Knee replacement Exam General: Alert Dental: Poor dentition Mouth Opening: Greater than 4 Fingerbreadths Neck Mobility: Limited Mallampati classification: II Thyromental Distance: greater than 6 cm Respiratory: Lungs clear Cardiovascular: Regular rate Plan Anesthesia Type: General Consent for Procedure(s) Verified and Reviewed: Yes Code Status: Attempt Resuscitation ASA classification: 3-Severe systemic disease Is this case an emergency?: Yes
[2018-12-21] MEDS: POLYETHYLENE GLYCOL 3350 17 GM PACKET PO SCH (11:32)
[2018-12-21] MEDS: SCOPOLAMINE PATCH TOP SCH (12:06)
[2018-12-21] MEDS ORDERED: LIDOCAINE 1% 50 ML MDV ONE (12:08)
[2018-12-21] MEDS ORDERED: BUPIVACAINE 0.5%-EPI 1:200000 PF 30 ML VIAL ONE (12:08)
[2018-12-21] MEDS ORDERED: BUPIVACAINE 0.5% PF 10 ML VIAL ONE (15:01)
[2018-12-21] MEDS ORDERED: LACTATED RINGERS 1,000 ML IV ONE (19:35)
--- NOTE | 2018-12-21 21:05 | OPERATIVE REPORT ---
Operative Report - General Admit Date: 12/19/18 Procedure Date: 12/21/18 Planned Procedure: Wound exploration, wound irrigation, possible wound debridement, and placement of wound VAC Pre-Op Diagnosis: Infected seroma Procedure Performed: Wound exploration, wound debridement, wound irrigation, placement of wound VAC Post Op Diagnosis: Same with infected seroma going all the way down to mesh. We do not have b - Procedure Note Primary Surgeon: Abdi Cervantes MD Anesthesia Provider: Pamela Bailon CRNA Anesthesia Technique: General ET tube IV Fluids (mL): 600 Estimated Blood Loss (mL): 25 Drain/Tube Type: Other (Wound VAC) Complications: None. - Other Other Information/Narrative: OPERATIVE DESCRIPTION/REPORT: After verbal and written informed consent was obtained detailing the risks of infection, bleeding requiring transfusion with its risks, nerve injury, and , as well as the possibility of a colostomy, and after I met with the patient confirming the surgery, the patient was brought to the operative suite and placed supine on the operating table. Great care was taken to avoid pressure points to prevent pressure necrosis or nerve injury. Monitoring devices were applied along with pneumatic compressive stockings (to prevent DVT). The patient was too large to have TEDs placed. The patient received preoperative antibiotics for surgical prophylaxis. Pamela Bailon CRNA sedated and anesthetized the patient for the entire procedure. The patient was prepped and draped in the usual sterile manner. A "time in" then confirmed that the pa tient was identified with 3 identifiers (name, date and medical record number), the history and physical was in the chart, the signed consent confirming the procedure was in the chart, the patient was in the correct position, the aforementioned prophylactic measures were in place or given, we had the correct personnel and equipment to complete the procedure and that anesthesia, surgery and nursing were given an opportunity to express any concerns. With the agreement of everyone in the room, we proceeded with the operation. The already open midline incision was opened to the length of the original incision using a combination of blunt dissection as well as Husain scissors. The subcutaneous Vicryl sutures were removed. What was found was small areas of patchy necrosis of the subcutaneous tissues as well as tracking of the abscess to the patient's left and slightly inferiorly. There is no significant purulence noted. At the base of the abscess cavity the 2 PDS sutures that were used to close the fascia over the mesh failed to completely do their job and there was a small area, approximately the size of a pencil eraser, where the mesh could be seen. I asked whether biologic mesh was available at the hospital and I was assured that it was not. Actually, in consideration, removal of the mesh and replacement with biologic mesh in the situation with this patient's body habitus and known inability to heal I think would have posed a greater immediate risk. The patchy areas of necrosis were debrided using a combination of Bovie electrocautery as well as Husain scissors. A small pumping vessel was encountered on the left-hand side and had to be controlled using two 2-0 Vicryl sutures in a [id number] fashion. Once I was satisfied that I had trimmed the tissue back to viable tissue, the wound was copiously irrigated using Betadine and water. A total of 1 L was used. The volume of the wound was then measured using sterile saline and the volume of the wound was noted to be 250 cc. This saline was removed and 2 pieces of black mesh were obtained and cut to fit. These were allowed to fit without any overlap. In other words I did not need to cram the pieces in. A photograph was taken of the lower and upper piece as they obviously reflected into different areas of the wound. This was taken next to a ruler to help collection systems worker size. Next the fluid volume that could be placed into the mesh was judged to be approximately 50 mL. Both pieces of mesh were then placed into the wound and the skin was cleaned of its prep. The skin was then wiped dry and the skin conditioner and adhesive was applied. I waited until the adhesive was dry and tacky and I placed the occlusive plastic sheet over this centering the wound. 2 small centimeter holes were then made into the sheet superiorly and inferiorly over the wound and the vacuum portion was placed over the inferior hole and the irrigation portion was placed over the superior hole. The end of the irrigation portion was kept sterile by placing it into a sterile cup and wrapping it with some sterile drapes. This was then hooked up to the wound VAC machine placed on suction and it was noted to be working well without leak. The surgical count of instruments, needles and sponges was reported as correct twice. No additional dressing or wound covering is required. The patient was then awakened from anesthesia, extubated, and having tolerated the procedure well, was transported to the recovery room. No complications were encountered. A "time out" confirmed the operation performed, the fluids given, the estimated blood loss and anesthesia, surgery and nursing were given an opportunity to express any concerns. Dragon disclaimer: This document was created in part using voice recognition technology. Because of the inherent limitations of the system ([employer]s Dragon Dictate user manual states that the licensee understands that speech recognition is a statistical process and that recognition errors are inherent in the process), occasional same sounding word substitutions and grammatical errors do occur and persist despite proofreading. Please read this document for context.
[2018-12-21] MEDS ORDERED: SODIUM CHLORIDE FLUSH 0.9% 10 ML SYRINGE IVP PRN (21:18)
[2018-12-21] MEDS ORDERED: fentaNYL 100 MCG/2 ML VIAL ONE (21:32)
[2018-12-21] MEDS: levoFLOXacin 500 MG/100 ML 500 MG/100 ML BAG IV SCH (22:27)
[2018-12-21] MEDS: FLUTICASONE NASAL SPRAY NAS SCH (22:33)
[2018-12-22] MEDS: HYDROcod/ACETAM 7.5 MG/325 MG TABLET PO PRN ×5 (00:17→17:40)
[2018-12-22] MEDS: VANCOMYCIN INJ 1.75 GM in SODIUM CHLORIDE 0.9% 500 ML IV SCH ×3 (00:20→23:10)
[2018-12-22] MEDS: SODIUM CHLORIDE FLUSH 0.9% 10 ML SYRINGE IVP SCH ×6 (00:23→17:13)
[2018-12-22 05:11] LABS: BASOPHILS % (AUTO) 0.5 %; EOSINOPHILS # (AUTO) 0.2 10^3/uL (0.0-0.7); EOSINOPHILS % (AUTO) 2.6 %; HGB - HEMOGLOBIN 11.2 g/dL (12.0-16.0); LYMPHOCYTES # (AUTO) 1.2 10^3/uL (1.5-3.5); LYMPHOCYTES % (AUTO) 14.2 %; MEAN CORPUSCULAR HEMOGLOBIN 27.3 pg (27.0-31.0); MEAN CORPUSCULAR HGB CONC 30.4 g/dL (32.0-36.0); MEAN CORPUSCULAR VOLUME 89.8 fL (81.0-99.0); MEAN PLATELET VOLUME 8.9 fL (7.9-10.8); MONOCYTES # (AUTO) 0.9 10^3/uL (0.0-1.0); MONOCYTES % (AUTO) 10.5 %; NEUTROPHILS # (AUTO) 6.1 10^3/uL (1.5-6.6); NEUTROPHILS % (AUTO) 70.9 %; PLT - PLATELET COUNT 319 10^3/uL (130-450); RED BLOOD COUNT 4.11 10^6/uL (4.20-5.40); RED CELL DISTRIBUTION WIDTH 19.9 % (12.0-15.0); WHITE BLOOD COUNT 8.6 x10^3/uL (4.8-10.8)
[2018-12-22 05:29] LABS: ALBUMIN 2.6 g/dL (3.2-5.5); ALBUMIN/GLOBULIN RATIO 0.9 (1.0-2.2); BILIRUBIN,TOTAL 0.4 mg/dL (0.2-1.0); CALCIUM 8.4 mg/dL (8.5-10.3); CREATININE 0.5 mg/dL (0.4-1.0); MAGNESIUM 1.7 mg/dL (1.7-2.8); TOTAL PROTEIN 5.6 g/dL (6.7-8.2)
[2018-12-22] MEDS: PANTOPRAZOLE 40 MG TABLET PO SCH (06:11)
--- NOTE | 2018-12-22 06:42 | CONSULTATION NOTE ---
Referring Provider Name of Referring Provider:: Dr. Abdi Cervantes Consult Date: 12/22/18 Chief Complaint - Chief Complaint Chief Complaint: Abdominal wound History of Present Illness - Admitted From Admitted From:: Home - History Obtained From Records Reviewed: Yes History obtained from: Patient, EMR - History of Present Illness HPI Comment/Other: This is a 63 year old female with a past medical history significant for depression, type 2 diabetes, and a recent incarcerated and strangulated incisional hernia that required an exploratory laparotomy back in mid November. She returned to the hospital on December 19 as began to notice purulent and foul smelling discharge from the incision. At that time, she had associated chills and abdominal pain. She was started on Vancomycin and Levaquin for broad spectrum coverage. She went to the OR on December 21 for wound irrigation and wound vac placement. Prelim gram stain from the OR cultures are growing gram positive cocci with many WBC's. Blood cultures have been negative and she has remained afebrile during this hospitalization. Medicine was consulted to assist with her multiple medical problems and allergies. Today she reports her abdominal pain is improving. She denies fevers and chills. She is passing gas but has not had a bowel movement. She was able to tolerate a diet last night. She is agreeable to trying to insulin while hospitalized and understand why metformin is not commonly used in the inpatient setting. History - Past Medical History Cardiovascular: reports: Congestive heart failure, Hypertension Respiratory: reports: Other Neuro: reports: None Endocrine/Autoimmune: reports: Type 2 diabetes, Other GI: reports: GERD, Colon polyps, Chronic diarrhea, Other MARINE RIGGER: reports: Ovarian cysts, Other : reports: Incontinence HEENT: reports: Chronic vision loss, Chronic sinusitis Psych: reports: Depression, Anxiety, Obsessive compulsive disorder, Other Musculoskeletal: reports: Osteoarthritis, Other (Reactive Arthritis) Derm: reports: Other MRSA Hx?: No Other Past Medical History: strangulated incarcerated hernia resulting in bowel obstruction. Pt continues to smoke - Past Surgical History General: reports: Cholecystectomy, Appendectomy, Bowel surgery, Other Ortho: reports: Knee replacement /MARINE RIGGER: reports: 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, Oophrectomy Cardiovascular: reports: Cardiac catheterization HEENT: reports: Tonsil/Adenoidectomy - Family & Social History Family History Comment/Other: Patient's mother had asthma. Father had Alzheimer's disease and coronary artery disease and is . 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 14 years ago she then went to [facility], [facility] and finally worked here at [facility]. . She is originally from the [place] in [facility]. She lives alone with her dog. She does not have any biological children. She is not . She is a smoker and continue to smoke a pack a day and has been smoking for 45 years. She does not drink alcohol. She did try to use cannibis for pain control but it did not work and she does not use any other illicit drugs. - Substance History Use: Uses substance without health or social issues: Tobacco - POLST Patient has POLST: Yes POLST Status: DNR Meds/Allgy - Home Medications Home Medications: Ambulatory Orders Medication Instructions Recorded Confirmed Aspirin [Aspirin EC] 650 mg PO 0800,1200,1600,2000 05/29/13 12/21/18 Metoprolol Tartrate 50 mg PO BID 05/29/13 12/21/18 Potassium Chloride 20 meq PO DAILY PRN 05/29/13 12/21/18 Glimepiride 1 mg PO QDBREAKFAST 03/03/17 12/21/18 metFORMIN [Glucophage] 1,000 mg PO BID 03/03/17 12/21/18 Fluticasone [Flonase] 1 sprays MATT DAILY 11/26/17 12/21/18 Propylene Glycol/Peg 400/Pf 1 drops EACHEYE QID PRN 11/26/17 12/21/18 [Systane 0.3-0.4% Eye Drop] Timolol 0.5% Ophth Drops [Timoptic 1 drops EACHEYE BID 11/26/17 12/21/18 0.5% Ophth Drops] Esomeprazole Magnesium [Nexium] 40 mg PO DAILY 05/03/18 12/21/18 Saccharomyces Boulardii [Florastor] 250 mg PO DAILY 05/03/18 12/21/18 Cetirizine [ZyrTEC] 10 mg PO DAILY PM 09/06/18 12/21/18 predniSONE [Deltasone] 20 mg PO DAILY 09/06/18 12/19/18 Calcitonin [Fortical] 1 sprays MATT DAILY 10/25/18 12/21/18 Bupropion HCl [Bupropion HCl Sr] 150 mg PO BID 12/21/18 12/21/18 Chlorhexidine Gluconate 15 ml MM DAILY 12/21/18 12/21/18 Ondansetron Odt [Zofran Odt] 4 mg PO PRN PRN 12/21/18 12/21/18 - Allergies Allergies/Adverse Reactions: Allergies Allergy/AdvReac Type Severity Reaction Status Date / Time droperidol [From Inapsine] Allergy Severe EPS Verified 12/19/18 20:48 ibuprofen [From Motrin] Allergy Severe Anaphylaxis Verified 12/19/18 20:48 peanut Allergy Severe Anaphylaxis Verified 12/19/18 20:48 shellfish derived Allergy Severe Anaphylaxis Verified 12/19/18 20:48 [id number] Reductase Allergy Severe muscle pain Verified 12/19/18 20:48 Inhibitor amoxicillin [Amoxicillin] Allergy Intermediate Hives Verified 12/19/18 20:48 cefazolin Allergy Intermediate Hives Verified 12/19/18 20:48 Cephalosporins Allergy Intermediate Hives Verified 12/19/18 20:48 clindamycin Allergy Intermediate Hives Verified 12/19/18 20:48 cyclobenzaprine Allergy Intermediate Hives/night Verified 12/19/18 20:48 [Cyclobenzaprine] castaneda erythromycin base Allergy Intermediate Hives Verified 12/19/18 20:48 [Erythromycin Base] potassium clavulanate * Allergy Intermediate Hives Verified 12/19/18 20:48 [From Augmentin] ketorolac tromethamine * Allergy Anaphylaxis Verified 12/19/18 20:48 [From Toradol] adhesive tape AdvReac Severe BLISTERS Verified 12/19/18 20:48 duloxetine AdvReac Severe Suicidal Verified 12/19/18 20:48 etanercept [From Enbrel] AdvReac Severe Nausea/vomm Verified 12/19/18 20:48 iting/cramp s methotrexate AdvReac Severe N/V/Cramps Verified 12/19/18 20:48 NSAIDS (Non-Steroidal AdvReac Severe Anaphylaxis Verified 12/19/18 20:48 Anti-Inflamma prochlorperazine AdvReac Severe EPS Verified 12/19/18 20:48 pseudoephedrine AdvReac Severe Tachycardia Verified 12/19/18 20:48 sumatriptan AdvReac Severe Widened QRS Verified 12/19/18 20:48 doxycycline AdvReac Intermediate Hives Verified 12/19/18 20:48 gabapentin AdvReac Intermediate Gait Verified 12/19/18 20:48 disturbance latex AdvReac Intermediate Sensitivity Verified 12/19/18 20:48 morphine AdvReac Unknown Verified 12/19/18 20:48 prochlorperazine edisylate * AdvReac Unknown Verified 12/19/18 20:48 [From Compazine] prochlorperazine maleate * AdvReac Unknown Verified 12/19/18 20:48 [From Compazine] promethazine [From Phenergan] AdvReac Hallucinati Verified 12/19/18 20:48 ons Review of Systems - Constitutional Constitutional: denies: Fatigue, Fever, Chills - Cardiovascular Cariovascular: reports: Edema. denies: Chest pain, Lightheadedness - Respiratory Respiratory: denies: Cough, SOB at rest, SOB with exertion - Gastrointestinal Gastrointestinal: reports: Abdominal pain, Constipation. denies: Diarrhea, Poor appetite - Musculoskeletal Musculoskeletal: reports: Back pain - Neurological Neurological: denies: General weakness, Focal weakness - Psychiatric Psychiatric: reports: Depression - All Other Systems All Other Systems: reports: Reviewed and negative Exam - Vital Signs Reviewed Vital Signs: Yes Vital Signs: Vital Signs x48h Temp Pulse Resp BP Pulse Ox 12/22/18 06:13 36.4 C L 79 20 111/65 95 12/22/18 02:15 36.6 C 62 20 120/70 98 12/22/18 00:15 36.4 C L 71 20 107/57 L 95 - Physical Exam General Appearance: positive: No acute distress Eyes Bilateral: positive: Normal inspection ENT: positive: ENT inspection nml Respiratory: positive: Chest non-tender, No respiratory distress, Breath sounds nml Cardiovascular: positive: Regular rate & rhythm, No murmur Abdomen: positive: Non-tender, No distention, Other (Wound vac in place.) Skin: positive: No rash, Warm, Dry Extremities: positive: Pedal edema Neurologic/Psychiatric: positive: Oriented x3 Conclusion/Plan - Diagnosis Diagnosis: 1) Abdominal abscess s/p wound exploration on December 21. 2) History of incarcerated hernia requiring emergent incisional hernia repair. 3) Type 2 diabetes. 4) Depression with history of suicide attempt. 5) History of reactive arthritis - Plan Plan: 1) She is now agreeable to insulin and so I will start her on sliding scale and discontinue Metformin and Glimepiride 2) Agree with broad spectrum antibiotics with Vancomycin and Levaquin - will de- escalate based off wound cultures which gram stain is growing gram + cocci. This may require the help of Pharmacy considering her multiple allergies. She told me she can only take Vancomycin, Levaquin, Cipro, and Bactrim and that she has been intubated multiple times before for allergic reactions. 3) Continue Prednisone for her history of reactive arthritis although this in addition to her smoking will delay wound healing 4) Agree with Wound care consult 5) Continue Wellbutrin for her history of depression Thank you for allowing us to participate in this patient's care. We will continue to follow along. - Lab Results Lab results reviewed: Yes Fish Bones: 12/22/18 04:50 12/22/18 04:50
[2018-12-22 08:15] LABS: HB2 TOTAL 11.2 g/dL; HEMOGLOBIN A1C 0.54 g/dL; HEMOGLOBIN A1C % 6.6 % (4.6-6.2)
[2018-12-22] MEDS ORDERED: SODIUM CHLORIDE 0.9% 250 ML IR SCH (08:30)
[2018-12-22] MEDS: ASCORBIC ACID CHEW 500 MG TABLET PO SCH ×2 (08:52→20:32)
[2018-12-22] MEDS: INSULIN ASPART 300 UNIT/3 ML PEN SUBQ SCH ×4 (08:52→20:41)
[2018-12-22] MEDS: ZINC SULFATE 220 MG CAPSULE PO SCH (08:53)
[2018-12-22] MEDS: predniSONE 20 MG TABLET PO SCH (08:54)
[2018-12-22] MEDS: SACCHAROMYCES BOULARDII 250 MG CAPSULE PO SCH (08:54)
[2018-12-22] MEDS: buPROPion XL 150 MG TABLET PO SCH ×2 (08:54→20:33)
[2018-12-22] MEDS: CETIRIZINE 10 MG TABLET PO SCH (08:54)
[2018-12-22] MEDS: ASPIRIN EC 325 MG TABLET PO SCH ×4 (08:54→20:34)
[2018-12-22] MEDS: CHOLECALCIFEROL 1,000 UNIT TABLET PO SCH (08:55)
[2018-12-22] MEDS: TIMOLOL 0.5% OPHTH DROPS EACHEYE SCH ×2 (08:56→20:36)
[2018-12-22] MEDS: METOPROLOL TARTRATE 50 MG TABLET PO SCH ×2 (08:58→20:34)
[2018-12-22] MEDS: CALCITONIN NASAL SPRAY NAS SCH (09:01)
[2018-12-22] MEDS: MAGNESIUM SULFATE 2 GRAM 2 GM/50 ML BAG IV SCH (09:02)
[2018-12-22] MEDS: ENOXAPARIN 40 MG/0.4 ML SYRINGE SUBQ SCH (09:04)
[2018-12-22] MEDS: POLYETHYLENE GLYCOL 3350 17 GM PACKET PO SCH (09:05)
[2018-12-22 11:09] LABS: VANCOMYCIN,TROUGH 18.5 ug/mL (10.0-20.0)
[2018-12-22] MEDS ORDERED: BISACODYL 10 MG SUPP PR ONE (13:15)
[2018-12-22] MEDS: SENNA 8.6 MG TABLET PO SCH (13:27)
[2018-12-22] MEDS: ONDANSETRON ODT 4 MG TABLET TL PRN (13:28)
[2018-12-22] MEDS: DOCUSATE SODIUM 250 MG CAPSULE PO SCH (13:28)
--- NOTE | 2018-12-22 17:37 | PROVIDER PROGRESS NOTE ---
Subjective - General Admit Date: 12/19/18 Procedure Date: 12/21/18 Post Op Days: 1 Procedure Performed: Wound exploration, clean out and placement wound VAC - Review of Systems Wound/Incisions: positive: Other (Wound VAC in place. Operative closure had been changed by Barbara this AM.) General: positive: Other (Complain of increased back pain.) HEENT: positive: No symptoms Pulmonary: positive: Shortness of breath (Chronic) Cardiovascular: positive: No symptoms Gastrointestinal: positive: Nausea, Abdominal pain (Upper abdomen.) Musculoskeletal: positive: Back pain (Worse - "does not know what happened to her back") All Other Systems: positive: Reviewed and negative Objective - Patient Data Reviewed Vital Signs: Yes Vital Signs: Vital Signs x48h Temp Pulse Resp BP Pulse Ox 12/22/18 15:35 36.4 C L 70 18 138/87 H 93 Weight: Weight 12/20/18 12/21/18 12/22/18 23:59 23:59 23:59 Weight (kg) 121.5 kg Intake & Output: Intake and Output Totals x24h 12/20/18 12/21/18 12/22/18 23:59 23:59 23:59 Intake Total 3283.333 3155.167 3097.5 Output Total 750 350 200 Balance 2533.333 2805.167 2897.5 - Lab Results Lab Results: 12/22/18 04:50 12/22/18 04:50 Other Lab Results: Lab Results x24hrs 12/22/18 12/22/18 12/22/18 Range/Units 16:42 11:34 10:47 WBC (4.8-10.8) x10^3/uL RBC (4.20-5.40) 10^6/uL Hgb (12.0-16.0) g/dL Hct (37.0-47.0) % MCV (81.0-99.0) fL MCH (27.0-31.0) pg MCHC (32.0-36.0) g/dL RDW (12.0-15.0) % Plt Count (130-450) 10^3/uL MPV (7.9-10.8) fL Neut # (Auto) (1.5-6.6) 10^3/uL Lymph # (Auto) (1.5-3.5) 10^3/uL Dewey # (Auto) (0.0-1.0) 10^3/uL Eos # (Auto) (0.0-0.7) 10^3/uL Baso # (Auto) (0.0-0.1) 10^3/uL Absolute Nucleated RBC x10^3/uL Nucleated RBC % /100WBC Sodium (135-145) mmol/L Potassium (3.5-5.0) mmol/L Chloride (101-111) mmol/L Carbon Dioxide (21-32) mmol/L Anion Gap (6-13) BUN (6-20) mg/dL Creatinine (0.4-1.0) mg/dL Estimated GFR (MDRD) (>89) Glucose (70-100) mg/dL POC Whole Bld Glucose 186 H 173 H (70 - 100) mg/dL Glycated Hemoglobin (4.6-6.2) % Estim Average Glucose (70-100) Calcium (8.5-10.3) mg/dL Magnesium (1.7-2.8) mg/dL Total Bilirubin (0.2-1.0) mg/dL AST (10-42) IU/L ALT (10-60) IU/L Alkaline Phosphatase (42-121) IU/L Total Protein (6.7-8.2) g/dL Albumin (3.2-5.5) g/dL Globulin (2.1-4.2) g/dL Albumin/Globulin Ratio (1.0-2.2) Last Dose Date 12/22/18 Last Dose Time 0257 Vancomycin Trough 18.5 (10.0-20.0) ug/mL 12/22/18 12/22/18 12/22/18 Range/Units 07:17 04:50 04:50 WBC (4.8-10.8) x10^3/uL RBC (4.20-5.40) 10^6/uL Hgb (12.0-16.0) g/dL Hct (37.0-47.0) % MCV (81.0-99.0) fL MCH (27.0-31.0) pg MCHC (32.0-36.0) g/dL RDW (12.0-15.0) % Plt Count (130-450) 10^3/uL MPV (7.9-10.8) fL Neut # (Auto) (1.5-6.6) 10^3/uL Lymph # (Auto) (1.5-3.5) 10^3/uL Dewey # (Auto) (0.0-1.0) 10^3/uL Eos # (Auto) (0.0-0.7) 10^3/uL Baso # (Auto) (0.0-0.1) 10^3/uL Absolute Nucleated RBC x10^3/uL Nucleated RBC % /100WBC Sodium 141 (135-145) mmol/L Potassium 4.3 (3.5-5.0) mmol/L Chloride 104 (101-111) mmol/L Carbon Dioxide 27 (21-32) mmol/L Anion Gap 10.0 (6-13) BUN 7 (6-20) mg/dL Creatinine 0.5 (0.4-1.0) mg/dL Estimated GFR (MDRD) 125 (>89) Glucose 115 H (70-100) mg/dL POC Whole Bld Glucose 109 H (70 - 100) mg/dL Glycated Hemoglobin 6.6 H (4.6-6.2) % Estim Average Glucose 143 H (70-100) Calcium 8.4 L (8.5-10.3) mg/dL Magnesium 1.7 (1.7-2.8) mg/dL Total Bilirubin 0.4 (0.2-1.0) mg/dL AST 19 (10-42) IU/L ALT 20 (10-60) IU/L Alkaline Phosphatase 84 (42-121) IU/L Total Protein 5.6 L (6.7-8.2) g/dL Albumin 2.6 L (3.2-5.5) g/dL Globulin 3.0 (2.1-4.2) g/dL Albumin/Globulin Ratio 0.9 L (1.0-2.2) Last Dose Date Last Dose Time Vancomycin Trough (10.0-20.0) ug/mL 12/22/18 12/21/18 12/21/18 Range/Units 04:50 21:53 21:07 WBC 8.6 (4.8-10.8) x10^3/uL RBC 4.11 L (4.20-5.40) 10^6/uL Hgb 11.2 L (12.0-16.0) g/dL Hct 36.9 L (37.0-47.0) % MCV 89.8 (81.0-99.0) fL MCH 27.3 (27.0-31.0) pg MCHC 30.4 L (32.0-36.0) g/dL RDW 19.9 H (12.0-15.0) % Plt Count 319 (130-450) 10^3/uL MPV 8.9 (7.9-10.8) fL Neut # (Auto) 6.1 (1.5-6.6) 10^3/uL Lymph # (Auto) 1.2 L (1.5-3.5) 10^3/uL [place]wey # (Auto) 0.9 (0.0-1.0) 10^3/uL Eos # (Auto) 0.2 (0.0-0.7) 10^3/uL Baso # (Auto) 0.0 (0.0-0.1) 10^3/uL Absolute Nucleated RBC 0.00 x10^3/uL Nucleated RBC % 0.0 /100WBC Sodium (135-145) mmol/L Potassium (3.5-5.0) mmol/L Chloride (101-111) mmol/L Carbon Dioxide (21-32) mmol/L Anion Gap (6-13) BUN (6-20) mg/dL Creatinine (0.4-1.0) mg/dL Estimated GFR (MDRD) (>89) Glucose (70-100) mg/dL POC Whole Bld Glucose 76 81 (70 - 100) mg/dL Glycated Hemoglobin (4.6-6.2) % Estim Average Glucose (70-100) Calcium (8.5-10.3) mg/dL Magnesium (1.7-2.8) mg/dL Total Bilirubin (0.2-1.0) mg/dL AST (10-42) IU/L ALT (10-60) IU/L Alkaline Phosphatase (42-121) IU/L Total Protein (6.7-8.2) g/dL Albumin (3.2-5.5) g/dL Globulin (2.1-4.2) g/dL Albumin/Globulin Ratio (1.0-2.2) Last Dose Date Last Dose Time Vancomycin Trough (10.0-20.0) ug/mL - Current Medications Current Medications: Current Medications Generic Name Dose Route Start Last Admin Trade Name Freq PRN Reason Stop Dose Admin Hydrocodone Bitart/Acetaminophen 1 tab 12/20/18 11:09 12/22/18 10:58 [place] 7.5/325 PO 1 tab TID PRN Administration MINOR [employer]IN Ascorbic Acid 500 mg 12/20/18 21:00 12/22/18 08:52 Vitamin C PO 500 mg BID RIVERA Administration Aspirin 650 mg 12/20/18 12:00 12/22/18 16:06 Ecotrin PO 650 mg 0800,1200,1600,2000 RIVERA Administration Bupropion HCl 150 mg 12/20/18 21:00 12/22/18 08:54 Wellbutrin Xl PO 150 mg BID RIVERA Administration Calcitonin [place] 1 sprays 12/20/18 10:00 12/22/18 09:01 Fortical MATT 1 sprays DAILY RIVERA Administration Cetirizine HCl 10 mg 12/20/18 10:00 12/22/18 08:54 Zyrtec PO 10 mg DAILY RIVERA Administration Cholecalciferol 6,000 unit 12/20/18 09:30 12/22/18 08:55 Vitamin D3 PO 6,000 unit DAILY RIVERA Administration Docusate Sodium 250 - 500 mg 12/22/18 13:00 12/22/18 13:28 Colace 250mg Capsule PO Not Given DAILY RIVERA Enoxaparin Sodium 40 mg 12/20/18 09:00 12/22/18 09:04 Lovenox SUBQ Not Given DAILY RIVERA Fluticasone Propionate 2 sprays 12/20/18 21:00 12/21/18 22:33 Flonase MATT Not Given QPM RIVERA Magnesium Sulfate 2 gm in 50 mls @ 50 mls/hr 12/20/18 09:00 12/22/18 10:31 Magnesium Sulfate IV 12/23/18 08:59 Infused DAILY RIVERA Infusion Levofloxacin 500 mg in 100 mls @ 100 mls/hr 12/20/18 21:00 12/21/18 23:30 Levaquin 500 Mg/100 Ml IV 12/29/18 20:59 Infused Q24H RIVERA Infusion Vancomycin HCl 1.75 gm/ Sodium 500 mls @ 250 mls/hr 12/20/18 23:00 12/22/18 15:49 Chloride IV Infused Q12H RIVERA Infusion Protocol Potassium Chloride/Dextrose/Sod Cl 1,000 mls @ 70 mls/hr 12/21/18 21:21 12/22/18 13:45 IV 70 mls/hr .[id number] RIVERA Infusion Insulin Aspart 1 - 9 unit 12/22/18 08:00 12/22/18 17:12 Novolog SUBQ 3 unit 0800,1200,1700,2100 RIVERA Administration Protocol Metoprolol Tartrate 25 mg 12/20/18 21:00 12/22/18 08:58 Lopressor PO 25 mg BID RIVERA Administration Ondansetron HCl 4 mg 12/19/18 22:51 12/20/18 01:52 Zofran Inj IVP 4 mg Q6HR PRN Administration Nausea / Vomiting Ondansetron HCl 4 mg 12/20/18 10:43 12/22/18 13:28 Zofran Odt TL 4 mg QID PRN Administration Nausea / Vomiting Pantoprazole Sodium 40 mg 12/20/18 10:00 12/22/18 06:11 Protonix PO 40 mg QDAC RIVERA Administration Polyethylene Glycol 17 gm 12/20/18 09:00 12/22/18 09:05 Miralax PO Not Given DAILY RIVERA Prednisone 20 mg 12/21/18 09:00 12/22/18 08:54 Deltasone PO 20 mg DAILY RIVERA Administration Saccharomyces Boulardii 250 mg 12/21/18 09:00 12/22/18 08:54 Florastor PO 250 mg DAILY RIVERA Administration Scopolamine HBr 1 patch 12/21/18 12:00 12/21/18 12:06 Transderm-Scop TOP 1 patch Q3D RIVERA Administration Senna 8.6 - 17.2 mg 12/22/18 13:00 12/22/18 13:27 Senokot PO 17.2 mg DAILY RIVERA Administration Sodium Chloride 10 ml 12/19/18 22:51 12/20/18 01:52 Normal Saline Flush 0.9% IVP 10 ml PRN PRN Administration NEEDED PER PROVIDER ORDERS Sodium Chloride 10 ml 12/20/18 01:00 12/22/18 17:13 Normal Saline Flush 0.9% IVP Not Given 0100,0900,1700 RIVERA Sodium Chloride 10 ml 12/22/18 01:00 12/22/18 17:13 Normal Saline Flush 0.9% IVP Not Given 0100,0900,1700 [facility] Timolol Maleate 1 drops 12/20/18 21:00 12/22/18 08:56 Timoptic 0.5% Ophth Drops EACHEYE 1 drops BID RIVERA Administration Zinc Sulfate 220 mg 12/21/18 09:00 12/22/18 08:53 PO 220 mg DAILY RIVERA Administration - Physical Exam Wound/Incisions: positive: Other (Wound VAC in place. Had to cut the top of the patient's panties in order for the wound VAC to work properly.) General Appearance: positive: No acute distress Eyes Bilateral: positive: No lid inflammation, Conjunctivae nml, No scleral icterus ENT: positive: No signs of dehydration Neck: positive: Trachea midline Respiratory: positive: Chest non-tender, Other (Decreased respiratory sounds bilaterally.) Cardiovascular: positive: Regular rate & rhythm Abdomen: positive: Nml bowel sounds, Other (Obese) Skin: positive: Pallor, Other (Numerous excoriations especially on legs.) Extremities: positive: Non-tender Neurologic/Psychiatric: positive: Oriented x3, Motor nml, Sensation nml, Mood/affect nml ABX Reporting Has patient been on IV antibiotics over the past 48 hours?: Yes Impression/Plan - Problem List Problem List: D1 s/p wound exploration and clean out and placement of wound VAC 1) FEN Continue diet. Magnesium normal. 2) ID Continue Vancomycin and will consider stopping Levaquin. WBC normal. 3) Wound Wound VAC in place. Needed to cut patient's underwear in order to get wound VAC to stop alarming. No orders from wound nurse yet that I can find. Switch to suction only if irrigation is problematic. 4) Placement Start conversation of where patient can receive wound VAC and IV antibiotics. Patient tells me that she is not "welcome" at [facility]. 5) Med issues Truly appreciate consultation and continued insight.
[2018-12-22] MEDS: D5NS W/20 MEQ KCL 1,000 ML IV SCH ×2 (19:25→20:33)
[2018-12-22] MEDS ORDERED: LIDOCAINE-MPF 2% 5 ML VIAL IM ONE (20:20)
[2018-12-22] MEDS ORDERED: ePHEDrine 50 MG/ML VIAL IVP ONE (20:20)
[2018-12-22] MEDS ORDERED: PROPOFOL 1000 MG/100 ML 100 ML IV ONE (20:20)
[2018-12-22] MEDS ORDERED: NEOSTIGMINE 1 MG/1 ML 10 ML MDV IVP ONE (20:20)
[2018-12-22] MEDS ORDERED: GLYCOPYRROLATE 1 MG/5 ML VIAL IVP ONE (20:20)
[2018-12-22] MEDS ORDERED: ONDANSETRON 4 MG/2 ML VIAL IVP ONE (20:20)
[2018-12-22] MEDS ORDERED: fentaNYL 100 MCG/2 ML VIAL IVP ONE (20:20)
[2018-12-22] MEDS ORDERED: MIDAZOLAM 2 MG/2 ML VIAL IVP ONE (20:20)
[2018-12-22] MEDS ORDERED: ROCURONIUM 50 MG/5 ML VIAL IVP ONE (20:20)
[2018-12-22] MEDS: BISACODYL 5 MG TABLET PO PRN (20:34)
[2018-12-22] MEDS: levoFLOXacin 500 MG/100 ML 500 MG/100 ML BAG IV SCH (20:35)
[2018-12-22] MEDS: FLUTICASONE NASAL SPRAY NAS SCH (20:36)
[2018-12-22] MEDS: buPROPion SR 150 MG TABLET PO SCH (21:09)
[2018-12-23] MEDS: HYDROcod/ACETAM 7.5 MG/325 MG TABLET PO PRN ×2 (01:04→06:50)
[2018-12-23] MEDS: BISACODYL 5 MG TABLET PO PRN (01:05)
[2018-12-23] MEDS: ONDANSETRON ODT 4 MG TABLET TL PRN (01:06)
[2018-12-23] MEDS: SODIUM CHLORIDE FLUSH 0.9% 10 ML SYRINGE IVP SCH ×6 (02:12→17:16)
[2018-12-23 05:04] LABS: BASOPHILS # (AUTO) 0.1 10^3/uL (0.0-0.1); BASOPHILS % (AUTO) 0.6 %; EOSINOPHILS # (AUTO) 0.2 10^3/uL (0.0-0.7); EOSINOPHILS % (AUTO) 2.4 %; HGB - HEMOGLOBIN 11.6 g/dL (12.0-16.0); LYMPHOCYTES # (AUTO) 1.3 10^3/uL (1.5-3.5); LYMPHOCYTES % (AUTO) 15.6 %; MEAN CORPUSCULAR HEMOGLOBIN 27.2 pg (27.0-31.0); MEAN CORPUSCULAR HGB CONC 30.6 g/dL (32.0-36.0); MEAN CORPUSCULAR VOLUME 88.8 fL (81.0-99.0); MEAN PLATELET VOLUME 8.9 fL (7.9-10.8); MONOCYTES # (AUTO) 0.8 10^3/uL (0.0-1.0); MONOCYTES % (AUTO) 9.7 %; NEUTROPHILS % (AUTO) 69.5 %; PLT - PLATELET COUNT 371 10^3/uL (130-450); RED BLOOD COUNT 4.27 10^6/uL (4.20-5.40); RED CELL DISTRIBUTION WIDTH 19.8 % (12.0-15.0); WHITE BLOOD COUNT 8.6 x10^3/uL (4.8-10.8)
[2018-12-23 05:09] LABS: ALBUMIN 2.9 g/dL (3.2-5.5); ALBUMIN/GLOBULIN RATIO 0.9 (1.0-2.2); BILIRUBIN,TOTAL 0.3 mg/dL (0.2-1.0); CALCIUM 9.1 mg/dL (8.5-10.3); CREATININE 0.5 mg/dL (0.4-1.0); MAGNESIUM 1.6 mg/dL (1.7-2.8); TOTAL PROTEIN 6.3 g/dL (6.7-8.2)
[2018-12-23] MEDS: PANTOPRAZOLE 40 MG TABLET PO SCH (06:27)
[2018-12-23] MEDS: ZINC SULFATE 220 MG CAPSULE PO SCH (10:15)
[2018-12-23] MEDS: METOPROLOL TARTRATE 50 MG TABLET PO SCH ×2 (10:15→21:01)
[2018-12-23] MEDS: ASPIRIN EC 325 MG TABLET PO SCH ×4 (10:16→21:01)
[2018-12-23] MEDS: buPROPion SR 150 MG TABLET PO SCH ×2 (10:17→21:01)
[2018-12-23] MEDS: SACCHAROMYCES BOULARDII 250 MG CAPSULE PO SCH (10:17)
[2018-12-23] MEDS: CETIRIZINE 10 MG TABLET PO SCH (10:18)
[2018-12-23] MEDS: SENNA 8.6 MG TABLET PO SCH ×3 (10:18→19:25)
[2018-12-23] MEDS: ASCORBIC ACID CHEW 500 MG TABLET PO SCH ×2 (10:18→21:01)
[2018-12-23] MEDS: predniSONE 20 MG TABLET PO SCH (10:19)
[2018-12-23] MEDS: CHOLECALCIFEROL 1,000 UNIT TABLET PO SCH (10:19)
[2018-12-23] MEDS: CHLORHEXIDINE GLUCONATE 15 ML UDC PO SCH (10:21)
[2018-12-23] MEDS: INSULIN ASPART 300 UNIT/3 ML PEN SUBQ SCH ×4 (10:21→21:02)
[2018-12-23] MEDS: CALCITONIN NASAL SPRAY NAS SCH (10:21)
[2018-12-23] MEDS: POLYETHYLENE GLYCOL 3350 17 GM PACKET PO SCH (10:22)
[2018-12-23] MEDS: DOCUSATE SODIUM 250 MG CAPSULE PO SCH (10:22)
[2018-12-23] MEDS: ENOXAPARIN 40 MG/0.4 ML SYRINGE SUBQ SCH (10:22)
[2018-12-23] MEDS: TIMOLOL 0.5% OPHTH DROPS EACHEYE SCH ×2 (10:22→21:02)
--- NOTE | 2018-12-23 10:48 | PROVIDER PROGRESS NOTE ---
Subjective - Prog Note Date Prog Note Date: 12/23/18 Prog Note Time: 10:46 - Subjective Subjective: She is alert, talkative. Asked that her pain medicine be half a Vicodin [address] takes it at home. She is also lamenting that she cannot afford to have her dog taking care of. So she is thinking of putting it down because her illness requires to be out from way from home so long. Right now she has her sister and a friend taking care of her dog. Current Medications - Current Medications Current Medications: Active Medications Hydrocodone Bitart/Acetaminophen ([place] 7.5/325) 1 tab PO Q6HR PRN PRN Reason: MINOR PAIN Last Admin: 12/23/18 06:50 Dose: 1 tab Ascorbic Acid (Vitamin C) 500 mg PO BID [facility] Last Admin: 12/23/18 10:18 Dose: 500 mg Aspirin (Ecotrin) 650 mg PO 0800,1200,1600,2000 [facility] Last Admin: 12/23/18 10:16 Dose: 650 mg Bisacodyl (Dulcolax) 10 mg PO DAILY PRN PRN Reason: Constipation Last Admin: 12/23/18 01:05 Dose: 10 mg Bupropion HCl (Wellbutrin Sr) 150 mg PO BID [facility] Last Admin: 12/23/18 10:17 Dose: 150 mg Calcitonin [place] (Fortical) 1 sprays MATT DAILY [facility] Last Admin: 12/23/18 10:21 Dose: 1 sprays Cetirizine HCl (Zyrtec) 10 mg PO DAILY [facility] Last Admin: 12/23/18 10:18 Dose: 10 mg Chlorhexidine Gluconate (Peridex) 15 ml PO DAILY [facility] Last Admin: 12/23/18 10:21 Dose: 15 ml Cholecalciferol (Vitamin D3) 6,000 unit PO DAILY [facility] Last Admin: 12/23/18 10:19 Dose: 6,000 unit Docusate Sodium (Colace 250mg Capsule) 250 - 500 mg PO DAILY [facility] Last Admin: 12/23/18 10:22 Dose: Not Given Enoxaparin Sodium (Lovenox) 40 mg SUBQ DAILY [facility] Last Admin: 12/23/18 10:22 Dose: Not Given Fluticasone Propionate (Flonase) 2 sprays MATT QPM [facility] Last Admin: 12/22/18 20:36 Dose: 2 spray Furosemide (Lasix) 40 mg PO DAILY PRN PRN Reason: NEEDED PER PROVIDER ORDERS Levofloxacin (Levaquin 500 Mg/100 Ml) 500 mg in 100 mls @ 100 mls/hr IV Q24H [facility] Stop: 12/29/18 20:59 Last Infusion: 12/22/18 21:35 Dose: Infused Vancomycin HCl 1.75 gm/ Sodium (Chloride) 500 mls @ 250 mls/hr IV Q12H [facility]; Protocol Last Infusion: 12/23/18 01:10 Dose: Infused Potassium Chloride/Dextrose/Sod Cl () 1,000 mls @ 70 mls/hr IV .[id number] [facility] Last Infusion: 12/23/18 05:42 Dose: 70 mls/hr Sodium Chloride (Normal Saline 0.9%) 250 mls @ 0 mls/hr IR .Q0M [facility] Insulin Aspart (Novolog) 1 - 9 unit SUBQ 0800,1200,1700,2100 [facility]; Protocol Last Admin: 12/23/18 10:21 Dose: Not Given Metoprolol Tartrate (Lopressor) 50 mg PO BID [facility] Last Admin: 12/23/18 10:15 Dose: 50 mg Non-Formulary Medication (Propylene Glycol/Peg 400/Pf [Systane 0.3-0.4% Eye Drop]) 1 drops EACHEYE QID PRN PRN Reason: DRYNESS Nystatin (Nystop) 1 applic TOP QID PRN PRN Reason: YEAST Ondansetron HCl (Zofran Inj) 4 mg IVP Q6HR PRN PRN Reason: Nausea / Vomiting Last Admin: 12/20/18 01:52 Dose: 4 mg Ondansetron HCl (Zofran Odt) 4 mg TL QID PRN PRN Reason: Nausea / Vomiting Last Admin: 12/23/18 01:06 Dose: 4 mg Pantoprazole Sodium (Protonix) 40 mg PO QDAC [facility] Last Admin: 12/23/18 06:27 Dose: 40 mg Polyethylene Glycol (Miralax) 17 gm PO DAILY [facility] Last Admin: 12/23/18 10:22 Dose: Not Given Potassium Chloride (Micro-K) 20 meq PO DAILY PRN PRN Reason: IF TAKING LASIX Prednisone (Deltasone) 20 mg PO DAILY [facility] Last Admin: 12/23/18 10:19 Dose: 20 mg Saccharomyces Boulardii (Florastor) 250 mg PO DAILY [facility] Last Admin: 12/23/18 10:17 Dose: 250 mg Scopolamine HBr (Transderm-Scop) 1 patch TOP Q3D [facility] Last Admin: 12/21/18 12:06 Dose: 1 patch Senna (Senokot) 8.6 - 17.2 mg PO DAILY [facility] Last Admin: 12/23/18 10:18 Dose: 17.2 mg Sodium Chloride (Normal Saline Flush 0.9%) 10 ml IVP PRN PRN PRN Reason: NEEDED PER PROVIDER ORDERS Last Admin: 12/20/18 01:52 Dose: 10 ml Sodium Chloride (Normal Saline Flush 0.9%) 10 ml IVP 0100,0900,1700 [facility] Last Admin: 12/23/18 10:22 Dose: Not Given Sodium Chloride (Normal Saline Flush 0.9%) 10 ml IVP 0100,0900,1700 [facility] Last Admin: 12/23/18 10:22 Dose: Not Given Sodium Chloride (Normal Saline Flush 0.9%) 10 ml IVP PRN PRN PRN Reason: NEEDED PER PROVIDER ORDERS Timolol Maleate (Timoptic 0.5% Ophth Drops) 1 drops EACHEYE BID [facility] Last Admin: 12/23/18 10:22 Dose: 1 drops Zinc Sulfate () 220 mg PO DAILY [facility] Last Admin: 12/23/18 10:15 Dose: 220 mg Aspirin [Aspirin EC] 650 mg PO 0800,1200,1600,2000 05/29/13 Metoprolol Tartrate 50 mg PO BID 05/29/13 Potassium Chloride 20 meq PO DAILY PRN 05/29/13 Glimepiride 1 mg PO QDBREAKFAST 03/03/17 metFORMIN [Glucophage] 1,000 mg PO BID 03/03/17 Fluticasone [Flonase] 1 sprays MATT DAILY 11/26/17 Propylene Glycol/Peg 400/Pf [Systane 0.3-0.4% Eye Drop] 1 drops EACHEYE QID PRN 11/26/17 Timolol 0.5% Ophth Drops [Timoptic 0.5% Ophth Drops] 1 drops EACHEYE BID 11/26/17 Esomeprazole Magnesium [Nexium] 40 mg PO DAILY 05/03/18 Saccharomyces Boulardii [Florastor] 250 mg PO DAILY 05/03/18 Cetirizine [ZyrTEC] 10 mg PO DAILY PM 09/06/18 predniSONE [Deltasone] 20 mg PO DAILY 09/06/18 Calcitonin [Fortical] 1 sprays MATT DAILY 10/25/18 Bupropion HCl [Bupropion HCl Sr] 150 mg PO BID 12/21/18 Chlorhexidine Gluconate 15 ml MM DAILY 12/21/18 Ondansetron Odt [Zofran Odt] 4 mg PO PRN PRN 12/21/18 Objective - Vital Signs/Intake & Output Reviewed Vital Signs: Yes Vital Signs: Vital Signs x48h Temp Pulse Resp BP BP Pulse Ox 12/23/18 10:15 139/68 H 12/23/18 07:51 36.3 C L 78 20 146/88 H 95 Intake & Output: Intake & Output 12/20/18 12/21/18 12/22/18 12/23/18 23:59 23:59 23:59 23:59 Intake Total 3283.333 3155.167 3518.833 1118.167 Output Total 750 350 700 Balance 2533.333 2805.167 2818.833 1118.167 - Objective General Appearance: positive: Alert, Other (Short statured, obese, talkative white female in no acute distress) ENT: positive: Pharynx nml, No signs of dehydration Neck: positive: No JVD. negative: Stiff neck Respiratory: positive: Chest non-tender. negative: Wheezes, Rales, Rhonchi Cardiovascular: positive: Regular rate & rhythm. negative: Gallop/S4, Friction rub Abdomen: positive: Non-tender, Nml bowel sounds, No distention, Other (Large, obese, pannus. Below the umbilicus she has a wound VAC in place covering the wound. The surrounding skin is without warmth, tenderness, or any evidence of cellulitis. Cultures are grown out Enterobacter and Klebsiella both sensitive to Levaquin. Blood cultures are negative.) Skin: positive: Warm, Dry Extremities: positive: Full ROM, Pedal edema (mild) Neurologic/Psychiatric: positive: Oriented x3, CN's nml (2-12), Motor nml - Lab Results Fish Bones: 12/23/18 04:30 12/23/18 04:30 Other Labs: Lab Results x24hrs 12/23/18 12/23/18 12/23/18 Range/Units 07:49 04:30 04:30 WBC 8.6 (4.8-10.8) x10^3/uL RBC 4.27 (4.20-5.40) 10^6/uL Hgb 11.6 L (12.0-16.0) g/dL Hct 37.9 (37.0-47.0) % MCV 88.8 (81.0-99.0) fL MCH 27.2 (27.0-31.0) pg MCHC 30.6 L (32.0-36.0) g/dL RDW 19.8 H (12.0-15.0) % Plt Count 371 (130-450) 10^3/uL MPV 8.9 (7.9-10.8) fL Neut # (Auto) 6.0 (1.5-6.6) 10^3/uL Lymph # (Auto) 1.3 L (1.5-3.5) 10^3/uL Wright # (Auto) 0.8 (0.0-1.0) 10^3/uL Eos # (Auto) 0.2 (0.0-0.7) 10^3/uL Baso # (Auto) 0.1 (0.0-0.1) 10^3/uL Absolute Nucleated RBC 0.00 x10^3/uL Nucleated RBC % 0.0 /100WBC Sodium 142 (135-145) mmol/L Potassium 4.2 (3.5-5.0) mmol/L Chloride 102 (101-111) mmol/L Carbon Dioxide 25 (21-32) mmol/L Anion Gap 15.0 H (6-13) BUN 10 (6-20) mg/dL Creatinine 0.5 (0.4-1.0) mg/dL Estimated GFR (MDRD) 125 (>89) Glucose 147 H (70-100) mg/dL POC Whole Bld Glucose 115 H (70 - 100) mg/dL Calcium 9.1 (8.5-10.3) mg/dL Magnesium 1.6 L (1.7-2.8) mg/dL Total Bilirubin 0.3 (0.2-1.0) mg/dL AST 15 (10-42) IU/L ALT 18 (10-60) IU/L Alkaline Phosphatase 89 (42-121) IU/L Total Protein 6.3 L (6.7-8.2) g/dL Albumin 2.9 L (3.2-5.5) g/dL Globulin 3.4 (2.1-4.2) g/dL Albumin/Globulin Ratio 0.9 L (1.0-2.2) Last Dose Date Last Dose Time Vancomycin Trough (10.0-20.0) ug/mL 12/22/18 12/22/18 12/22/18 Range/Units 20:39 16:42 11:34 WBC (4.8-10.8) x10^3/uL RBC (4.20-5.40) 10^6/uL Hgb (12.0-16.0) g/dL Hct (37.0-47.0) % MCV (81.0-99.0) fL MCH (27.0-31.0) pg MCHC (32.0-36.0) g/dL RDW (12.0-15.0) % Plt Count (130-450) 10^3/uL MPV (7.9-10.8) fL Neut # (Auto) (1.5-6.6) 10^3/uL Lymph # (Auto) (1.5-3.5) 10^3/uL Wright # (Auto) (0.0-1.0) 10^3/uL Eos # (Auto) (0.0-0.7) 10^3/uL Baso # (Auto) (0.0-0.1) 10^3/uL Absolute Nucleated RBC x10^3/uL Nucleated RBC % /100WBC Sodium (135-145) mmol/L Potassium (3.5-5.0) mmol/L Chloride (101-111) mmol/L Carbon Dioxide (21-32) mmol/L Anion Gap (6-13) BUN (6-20) mg/dL Creatinine (0.4-1.0) mg/dL Estimated GFR (MDRD) (>89) Glucose (70-100) mg/dL POC Whole Bld Glucose 150 H 186 H 173 H (70 - 100) mg/dL Calcium (8.5-10.3) mg/dL Magnesium (1.7-2.8) mg/dL Total Bilirubin (0.2-1.0) mg/dL AST (10-42) IU/L ALT (10-60) IU/L Alkaline Phosphatase (42-121) IU/L Total Protein (6.7-8.2) g/dL Albumin (3.2-5.5) g/dL Globulin (2.1-4.2) g/dL Albumin/Globulin Ratio (1.0-2.2) Last Dose Date Last Dose Time Vancomycin Trough (10.0-20.0) ug/mL 12/22/18 Range/Units 10:47 WBC (4.8-10.8) x10^3/uL RBC (4.20-5.40) 10^6/uL Hgb (12.0-16.0) g/dL Hct (37.0-47.0) % MCV (81.0-99.0) fL MCH (27.0-31.0) pg MCHC (32.0-36.0) g/dL RDW (12.0-15.0) % Plt Count (130-450) 10^3/uL MPV (7.9-10.8) fL Neut # (Auto) (1.5-6.6) 10^3/uL Lymph # (Auto) (1.5-3.5) 10^3/uL Wright # (Auto) (0.0-1.0) 10^3/uL Eos # (Auto) (0.0-0.7) 10^3/uL Baso # (Auto) (0.0-0.1) 10^3/uL Absolute Nucleated RBC x10^3/uL Nucleated RBC % /100WBC Sodium (135-145) mmol/L Potassium (3.5-5.0) mmol/L Chloride (101-111) mmol/L Carbon Dioxide (21-32) mmol/L Anion Gap (6-13) BUN (6-20) mg/dL Creatinine (0.4-1.0) mg/dL Estimated GFR (MDRD) (>89) Glucose (70-100) mg/dL POC Whole Bld Glucose (70 - 100) mg/dL Calcium (8.5-10.3) mg/dL Magnesium (1.7-2.8) mg/dL Total Bilirubin (0.2-1.0) mg/dL AST (10-42) IU/L ALT (10-60) IU/L Alkaline Phosphatase (42-121) IU/L Total Protein (6.7-8.2) g/dL Albumin (3.2-5.5) g/dL Globulin (2.1-4.2) g/dL Albumin/Globulin Ratio (1.0-2.2) Last Dose Date 12/22/18 Last Dose Time 025 Vancomycin Trough 18.5 (10.0-20.0) ug/mL ABX Reporting Has patient been on IV antibiotics over the past 48 hours?: Yes Sepsis Event Note (H) - Evaluation Current Stage of Sepsis: Ruled out Possible source of Sepsis: positive: Skin/soft tissue - Sepsis Criteria Sepsis Criteria: WBC count greater than 12,000 or less than 4000, Metabolic: lactate > 2 mmol/L Assessment/Plan - Problem List (1) Postoperative wound abscess Impression: presents to [facility]'s emergency department 3 weeks after an emergent surgery for an incarcerated and partially strangulated incisional hernia with purulent drainage from the wound. The patient did have some clear drainage following the operation and she had been instructed to stop smoking. Surprisingly she had not stop smoking. Today the drainage went from clear yellow to purulent with a foul smell and she started having rigors and abdominal pain. White cell count was 14.9, hypothermic at 36.4. But normal blood pressure, pulse, oxygenation. Lactic acid was high at 2.7.She did not meet criteria for sepsis. Postoperative day #2. Day #3 for Levaquin and Vanco Wound culture growing Klebsiella and Enterobacter sensitive to Levaquin Plan: Wound VAC in place. Being managed by wound care nurse and general surgery We are attempting to make appropriate placement for this patient. [facility] facility for chronic long-term wound management versus going home with daily visit to [facility] and daily antibiotics to [facility] (2) DM type 2, controlled, with complication Impression: complication is wound infection. A1c 6.6% December 8: 139, 149, 146, 157 December 21 136, 160, 147, 81, 76 December 10: 109, 173, 186, 150 December 11: 115 Plan: continue metformin and sulfonylurea. (3) Reactive arthritis Impression: stable on steroids. no changes. (4) Chronic pain Impression: change vicodin to her request. Qualifiers: Chronic pain type: chronic pain syndrome Qualified Code(s): G89.4 - Chronic pain syndrome
[2018-12-23 11:13] LABS: VANCOMYCIN,TROUGH 19.3 ug/mL (10.0-20.0)
[2018-12-23] MEDS: VANCOMYCIN INJ 1.75 GM in SODIUM CHLORIDE 0.9% 500 ML IV SCH (11:45)
[2018-12-23] MEDS: HYDROcod/ACETAM 5/325 MG TABLET PO PRN ×3 (12:55→23:51)
[2018-12-23] MEDS ORDERED: MAGNESIUM HYDROXIDE 2,400 MG/30 ML UDC PO ONE (12:58)
[2018-12-23] MEDS ORDERED: ALTEPLASE 2 MG VIAL IC ONE (15:04)
[2018-12-23] MEDS ORDERED: WATER FOR INJECTION,STERILE 10 ML ONE (15:58)
[2018-12-23] MEDS: D5NS W/20 MEQ KCL 1,000 ML IV SCH (18:18)
[2018-12-23] MEDS: SODIUM CHLORIDE FLUSH 0.9% 10 ML SYRINGE IVP PRN (18:19)
[2018-12-23] MEDS: FLUTICASONE NASAL SPRAY NAS SCH (21:01)
[2018-12-23] MEDS: levoFLOXacin 500 MG/100 ML 500 MG/100 ML BAG IV SCH (21:02)
[2018-12-23] MEDS: VANCOMYCIN INJ 1.25 GM in SODIUM CHLORIDE 0.9% 250 ML IV SCH (22:48)
[2018-12-24] MEDS: SENNA 8.6 MG TABLET PO SCH ×2 (01:30→06:02)
[2018-12-24] MEDS: SODIUM CHLORIDE FLUSH 0.9% 10 ML SYRINGE IVP SCH ×5 (02:18→15:28)
[2018-12-24] MEDS: HYDROcod/ACETAM 5/325 MG TABLET PO PRN ×3 (03:52→13:22)
[2018-12-24] MEDS: PANTOPRAZOLE 40 MG TABLET PO SCH (06:01)
[2018-12-24] MEDS: INSULIN ASPART 300 UNIT/3 ML PEN SUBQ SCH ×2 (08:24→13:23)
[2018-12-24] MEDS: CHLORHEXIDINE GLUCONATE 15 ML UDC PO SCH (09:00)
[2018-12-24] MEDS: ASPIRIN EC 325 MG TABLET PO SCH ×2 (09:46→14:12)
[2018-12-24] MEDS: CETIRIZINE 10 MG TABLET PO SCH (09:46)
[2018-12-24] MEDS: buPROPion SR 150 MG TABLET PO SCH (09:47)
[2018-12-24] MEDS: predniSONE 20 MG TABLET PO SCH (09:47)
[2018-12-24] MEDS: CHOLECALCIFEROL 1,000 UNIT TABLET PO SCH (09:48)
[2018-12-24] MEDS: ASCORBIC ACID CHEW 500 MG TABLET PO SCH (09:52)
[2018-12-24] MEDS: SACCHAROMYCES BOULARDII 250 MG CAPSULE PO SCH (09:53)
[2018-12-24] MEDS: ZINC SULFATE 220 MG CAPSULE PO SCH (09:53)
[2018-12-24] MEDS: POLYETHYLENE GLYCOL 3350 17 GM PACKET PO SCH (09:54)
[2018-12-24] MEDS: DOCUSATE SODIUM 250 MG CAPSULE PO SCH (10:17)
[2018-12-24] MEDS: ENOXAPARIN 40 MG/0.4 ML SYRINGE SUBQ SCH (10:18)
[2018-12-24] MEDS: TIMOLOL 0.5% OPHTH DROPS EACHEYE SCH (10:25)
[2018-12-24] MEDS: CALCITONIN NASAL SPRAY NAS SCH (10:26)
[2018-12-24] MEDS: D5NS W/20 MEQ KCL 1,000 ML IV SCH (10:47)
[2018-12-24] MEDS: METOPROLOL TARTRATE 50 MG TABLET PO SCH (10:50)
[2018-12-24] MEDS: VANCOMYCIN INJ 1.25 GM in SODIUM CHLORIDE 0.9% 250 ML IV SCH (11:19)
[2018-12-24] MEDS ORDERED: NYSTATIN 500000 UNITS/5 ML UDC PO SCH (13:00)
[2018-12-24] MEDS: SCOPOLAMINE PATCH TOP SCH (13:52)
--- NOTE | 2018-12-24 17:00 | Discharge Plan ---
Discharge Plan Problem Reviewed?: Yes Disposition: Home, Self Care Condition: Stable Prescriptions: Ertapenem Sodium [Ertapenem] 1 gm IV DAILY #21 vial Nystatin [Nystop] 1 applic TOP QID PRN #1 bottle PRN Reason: YEAST Diet: Diabetic Activity Restrictions: Activity as Tolerated Shower Restrictions: No Driving Restrictions: No Health Concerns: As a diabetic, morbidly obese female with a large pannus, who is still smoking, you had an incarcerated ventral hernia repair a few weeks ago and now have a subsequent skin breakdown of your wound. The wound was debrided and you will now will need long-term wound care until it heals. This may take up to 3 to 4 weeks. And you will need antibiotics for the bacteria that are growing in the wound. Plan of Treatment: 1. Wound VAC, daily care, to be followed by the wound clinic at [facility] 2. Ertapenem antibiotic once a day to cover the 3 bacteria that were growing in your wound 3. You have opted to go to home as opposed to go to a group home facility. If you change your mind about how much care it is to stay at home, please let your primary care provider know so that arrangements can be made to place you in a group home facility for further care Care Goals: 1. To slowly have the wound heal by secondary intention by using the wound VAC, controlling your sugars, and taking your antibiotics 2. Aim for an A1c of less than 7%. Currently you are at goal at 6.8%. 3. Please follow through with seeing Dr. Cervantes, and wound care nurse at [facility] on a regularly scheduled basis as determined by them. Assessment: You have opted to return to home with wound care and antibiotics as opposed to doing this at a group home facility. You have expressed understanding of what needs to be done. No Smoking: If you smoke, Please STOP! Call for help. Follow-up with: GIRMA LOPEZ MD [Primary Care Provider] -
[2018-12-24 17:17] VITALS: BP 145/90
[2018-12-24] MEDS ORDERED: VANCOMYCIN INJ 1 GM, VANCOMYCIN INJ 250 MG in SODIUM CHLORIDE 0.9% 250 ML IV SCH (23:00)
--- NOTE | 2018-12-26 00:07 | DISCHARGE SUMMARY ---
Physician: Eileen Stlol MD DATE OF ADMISSION: 12/19/2018 DATE OF DISCHARGE: 12/24/2018 DISCHARGE DIAGNOSES 1. Infected seroma, postoperative. 2. Type 2 diabetes mellitus, with complication of infection, not on long-term insulin, controlled. 3. Inflammatory arthritis. 4. Chronic pain syndrome. DISCHARGE MEDICATIONS 1. Aspirin 650 mg every 8 hours as needed. 2. Bupropion hydrochloride SR 150 mg p.o. b.i.d. 3. Calcitonin nasal spray daily alternating nares. 4. Cetirizine 10 mg daily. 5. Chlorhexidine mouthwash for oral care. 6. Nexium 40 mg daily. 7. Flonase nasal spray daily. 8. Glimepiride 1 mg tablet before breakfast. 9. Metformin 1000 mg p.o. b.i.d. 10. Metoprolol tartrate 50 mg b.i.d. 11. Zofran ODT 4 mg as needed every day. 12. Potassium 20 mEq daily. 13. Deltasone 20 mg daily. 14. Florastor 250 mg daily. 15. Timolol ophthalmic solution 1 drop each eye daily. 16. Nystop cream topical application to affected area daily. 17. Ertapenem 1 gram daily for 21 days. PRINCIPAL PROCEDURES 1. Abdomen and pelvis CT with no abscess in the superficial abdominal wall tissues. Small collectio n with the abdominal wall musculature as described above, compatible with a ventral incision and undr ained fluid collection in the soft tissues. 2. Wound culture growing Enterobacter, Klebsiella, Aerococcus. 3. Blood cultures without any growth. 4. Wound exploration, wound debridement, wound irrigation, placement of wound VAC on 12/21/2018. HOSPITAL COURSE: The patient is a morbidly obese, white female who has diabetes. She also continues to smoke. She had an incarcerated ventral hernia a few weeks ago and had resection of infected tiss ue and repair of hernia. She has continued to smoke in the postoperative period. And presented with fever, chills and pain at the incision site. She was seen and admitted by Dr. Abdi Cervantes, [facility]. She did not meet criteria for sepsis, but did have an elevated white cell count, as well as only a low-grade fever of 37.7. He treated her conservatively with antibiotics and then took her to the operating room for debridement of what he felt was an infected seroma. The wound was then cassandra ated with a wound VAC. The patient was stable during her stay and that sugars were controlled, blood pressure mildly elevated. Inflammatory arthritis was stable with her usual dose of steroids. She a mbulates slowly in the hallways and needed only standby assist at times. Sometimes used a walker. W as eating her meals without any problem and pain was controlled. It was felt that she was stable [facility] discharge to [facility] facility for continued wound management and IV antibiotics. But the patient stated that she would leave AMA. She was adamant that she was not going to stay at a [facility] nursing facility. As such, Social Service was able to put together a discharge plan that allow ed her to return to home with wound management through the [facility]. Cultures were identified as a jem, and she was able to be narrowed down to a single agent to cover all three bacteria through her port line. She was discharged in stable condition with a temperature of 36.8, pulse 76, blood pressure 145/90, r espirations 20, and 97% on room air. She is a short statured, 5 feet 2 inches, middle-aged female, w hose weight is 122 kg. She is alert, oriented, a voluminous speaker. Neck is thick, nontender. Dif ficult to assess for JVD. 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 She has a regular rate and rhythm. The abdominal wound is measured and documente d in the medical record with the wound VAC in place. Surrounding tissue has no exudate, redness, hea t. Legs have trace edema around the ankles. She is Homans negative. She walks with a slightly shuf fling gait, but has good balance, good forward motion. She is asked to see Dr. Cervantes in followup at his discretion. Again, wound management will be thro ug the [facility] on a daily basis or as-needed basis. And antibiotics is to be ertapenem once a da y. I am asking her to followup with her primary care provider, Giulia Lutz, and Dr. Cervantes. TD: 12/25/2018 18:58
== END 2018-12-24 17:40 | disposition home or self-care (01) | DRG 857 ==
LOC: ED 20:35 → MS2 22:51
PROVIDERS: ADMIT Surgery; ATTEND Specialist
PROC: 0JB80ZZ Excision of Abdomen Subcutaneous Tissue and Fascia, Open Approach (ICD-10-PCS; principal; 2018-12-21 16:00)
DX: L76.34 Postprocedural seroma of skin and subcutaneous tissue following other procedure (principal); Y83.8 Other surgical procedures as the cause of abnormal reaction of the patient, or of later complication, without mention of misadventure at the time of the procedure; L03.311 Cellulitis of abdominal wall; E83.42 Hypomagnesemia; E11.9 Type 2 diabetes mellitus without complications; T81.42XA Infection following a procedure, deep incisional surgical site, initial encounter; M96.843 Postprocedural seroma of a musculoskeletal structure following other procedure; F17.200 Nicotine dependence, unspecified, uncomplicated; M60.08 Infective myositis, other site; Z68.43 Body mass index [BMI] 50.0-59.9, adult; M02.30 Reiter's disease, unspecified site; E11.52 Type 2 diabetes mellitus with diabetic peripheral angiopathy with gangrene; B95.4 Other streptococcus as the cause of diseases classified elsewhere; B96.89 Other specified bacterial agents as the cause of diseases classified elsewhere; G89.4 Chronic pain syndrome; E66.01 Morbid (severe) obesity due to excess calories; F17.210 Nicotine dependence, cigarettes, uncomplicated; I11.0 Hypertensive heart disease with heart failure; I50.9 Heart failure, unspecified; K21.9 Gastro-esophageal reflux disease without esophagitis; F32.9 Major depressive disorder, single episode, unspecified; F41.9 Anxiety disorder, unspecified; F42.9 Obsessive-compulsive disorder, unspecified; R23.8 Other skin changes; Z66 Do not resuscitate; Z79.51 Long term (current) use of inhaled steroids; Z88.0 Allergy status to penicillin; Z91.5 Personal history of self-harm; Z87.19 Personal history of other diseases of the digestive system; Z79.82 Long term (current) use of aspirin; Z79.899 Other long term (current) drug therapy; Z79.84 Long term (current) use of oral hypoglycemic drugs; Z79.52 Long term (current) use of systemic steroids; Z88.1 Allergy status to other antibiotic agents
CPT/HCPCS: 36415; 74177; 80053; 80202; 82607; 82746; 83036; 83605; 83690; 83735; 85025; 87040; 87070; 87077; 87181; 87205; 96365; 97161; 97164; 97165; 99285; 99406; A9270; J1650; J2997; J3370; J3490; J7120; J7512; Q0162; Q9967

== ENCOUNTER 2019-02-15 08:00 | Outpatient (CLI) | payer MEDICARE, MEDICAID ==
[2019-02-15 16:12] LABS: HB2 TOTAL 13.3 g/dL; HEMOGLOBIN A1C 0.59 g/dL; HEMOGLOBIN A1C % 6.2 % (4.6-6.2)
== END 2019-02-15 23:59 | disposition home or self-care (01) ==
LOC: LAB.R 08:00
PROVIDERS: ATTEND Internal Medicine
DX: E11.40 Type 2 diabetes mellitus with diabetic neuropathy, unspecified (principal)
CPT/HCPCS: 83036

== ENCOUNTER 2019-02-20 13:52 | Inpatient (IN) | payer MEDICARE, MEDICAID ==
[2019-02-20] MEDS ORDERED: METOCLOPRAMIDE 10 MG/2 ML VIAL IVP STA (13:59)
[2019-02-20] MEDS ORDERED: SODIUM CHLORIDE 0.9% 1,000 ML IV ONE (13:59)
[2019-02-20] MEDS ORDERED: HYDROmorphone 1 MG/ML CARPUJECT IVP STA ×2 (13:59→15:41)
--- NOTE | 2019-02-20 14:01 | ED Physician Documentation ---
PD HPI ABD PAIN - Stated complaint Stated Complaint: ABD PX - Chief complaint Chief Complaint: Abd Pain - History obtained from History obtained from: Patient - History of Present Illness Timing - onset: Today (63-year-old woman with diabetes, she had a ventral hernia repair in November I think and then subsequently developed a postoperative seroma. She has a wound VAC and finished up IV ertapenem about 4 days ago that is given by left chest wall port. Today she suddenly developed retching and severe central abdominal pain which is nonradiating. She also usually has several loose bowel movements a day, did not have any today notes lack of flatus.) Review of Systems Ten Systems: 10 systems reviewed and negative Constitutional: denies: Fever, Chills Cardiac: denies: Chest pain / pressure, Palpitations Respiratory: denies: Dyspnea, Cough GI: reports: Abdominal Pain, Nausea, Vomiting, Constipation PD PAST MEDICAL HISTORY - Past Medical History Cardiovascular: Congestive heart failure, Hypertension Respiratory: Other Neuro: None Endocrine/Autoimmune: Type 2 diabetes, Other GI: GERD, Colon polyps, Chronic diarrhea, Other TREE GIRDLER: Ovarian cysts, Other : Incontinence HEENT: Chronic vision loss, Chronic sinusitis Psych: Depression, Anxiety, Obsessive compulsive disorder, Other Musculoskeletal: Osteoarthritis Derm: Other - Past Surgical History Past Surgical History: Yes General: Cholecystectomy, Appendectomy, Bowel surgery, Other Ortho: Knee replacement /TREE GIRDLER: 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, Oophrectomy Cardiovascular: Cardiac catheterization HEENT: Tonsil/Adenoidectomy - Present Medications Home Medications: Ambulatory Orders Medication Instructions Recorded Confirmed Aspirin [Aspirin EC] 650 mg PO 0800,1200,1600,2000 05/29/13 01/28/19 Metoprolol Tartrate 50 mg PO BID 05/29/13 01/28/19 Potassium Chloride 20 meq PO DAILY PRN 05/29/13 01/28/19 Glimepiride 1 mg PO QDBREAKFAST 03/03/17 01/28/19 metFORMIN [Glucophage] 1,000 mg PO BID 03/03/17 01/28/19 Fluticasone [Flonase] 1 sprays MATT DAILY 11/26/17 01/28/19 Propylene Glycol/Peg 400/Pf 1 drops EACHEYE QID PRN 11/26/17 01/28/19 [Systane 0.3-0.4% Eye Drop] Timolol 0.5% Ophth Drops [Timoptic 1 drops EACHEYE BID 11/26/17 01/28/19 0.5% Ophth Drops] Esomeprazole Magnesium [Nexium] 40 mg PO DAILY 05/03/18 01/28/19 Saccharomyces Boulardii [Florastor] 250 mg PO DAILY 05/03/18 01/28/19 Cetirizine [ZyrTEC] 10 mg PO DAILY PM 09/06/18 01/28/19 predniSONE [Deltasone] 17.5 mg PO DAILY 09/06/18 01/28/19 Calcitonin [Fortical] 1 sprays MATT DAILY 10/25/18 01/28/19 Bupropion HCl [Bupropion HCl Sr] 150 mg PO BID 12/21/18 01/28/19 Chlorhexidine Gluconate 15 ml MM DAILY 12/21/18 01/28/19 Ondansetron Odt [Zofran Odt] 4 mg PO TID 12/21/18 01/28/19 Ertapenem Sodium [Ertapenem] 1 gm IV DAILY #21 vial 12/24/18 01/28/19 Nystatin [Nystop] 1 applic TOP QID PRN #1 bottle 12/24/18 01/28/19 - Allergies Allergies/Adverse Reactions: Allergies Allergy/AdvReac Type Severity Reaction Status Date / Time droperidol [From Inapsine] Allergy Severe EPS Verified 01/28/19 10:28 ibuprofen [From Motrin] Allergy Severe Anaphylaxis Verified 01/28/19 10:28 peanut Allergy Severe Anaphylaxis Verified 01/28/19 10:28 shellfish derived Allergy Severe Anaphylaxis Verified 01/28/19 10:28 [id number] Reductase Allergy Severe muscle pain Verified 01/28/19 10:28 Inhibitor amoxicillin [Amoxicillin] Allergy Intermediate Hives Verified 01/28/19 10:28 cefazolin Allergy Intermediate Hives Verified 01/28/19 10:28 Cephalosporins Allergy Intermediate Hives Verified 01/28/19 10:28 clindamycin Allergy Intermediate Hives Verified 01/28/19 10:28 cyclobenzaprine Allergy Intermediate Hives/night Verified 01/28/19 10:28 [Cyclobenzaprine] castaneda erythromycin base Allergy Intermediate Hives Verified 01/28/19 10:28 [Erythromycin Base] potassium clavulanate * Allergy Intermediate Hives Verified 01/28/19 10:28 [From Augmentin] ketorolac tromethamine * Allergy Anaphylaxis Verified 01/28/19 10:28 [From Toradol] adhesive tape AdvReac Severe BLISTERS Verified 01/28/19 10:28 duloxetine AdvReac Severe Suicidal Verified 01/28/19 10:28 etanercept [From Enbrel] AdvReac Severe Nausea/vomm Verified 01/28/19 10:28 iting/cramp s methotrexate AdvReac Severe N/V/Cramps Verified 01/28/19 10:28 NSAIDS (Non-Steroidal AdvReac Severe Anaphylaxis Verified 01/28/19 10:28 Anti-Inflamma prochlorperazine AdvReac Severe EPS Verified 01/28/19 10:28 pseudoephedrine AdvReac Severe Tachycardia Verified 01/28/19 10:28 sumatriptan AdvReac Severe Widened QRS Verified 01/28/19 10:28 doxycycline AdvReac Intermediate Hives Verified 01/28/19 10:28 gabapentin AdvReac Intermediate Gait Verified 01/28/19 10:28 disturbance latex AdvReac Intermediate Sensitivity Verified 01/28/19 10:28 morphine AdvReac Unknown Verified 01/28/19 10:28 prochlorperazine edisylate * AdvReac Unknown Verified 01/28/19 10:28 [From Compazine] prochlorperazine maleate * AdvReac Unknown Verified 01/28/19 10:28 [From Compazine] promethazine [From Phenergan] AdvReac Hallucinati Verified 01/28/19 10:28 ons - Social History Does the pt smoke?: Yes Smoking Status: Current every day smoker Does the pt drink ETOH?: Yes Does the pt have substance abuse?: No - Family History Family history: reports: Non contributory - Immunizations Immunizations are current?: Yes - POLST Patient has POLST: Yes POLST Status: DNR PD ED PE NORMAL - Vitals Vital signs reviewed: Yes - General General: Alert and oriented X 3, Other (She is uncomfortable and retching) - HEENT HEENT: PERRL, EOMI - Neck Neck: Supple, no meningeal sign, No bony TTP - Cardiac Cardiac: RRR, No murmur - Respiratory Respiratory: No respiratory distress, Clear bilaterally - Abdomen Abdomen: Other (Diminished but not absent bowel tones, moderate diffuse tenderness with some rebound tenderness. There is a periumbilical wound VAC in place, the sponge is only about 3 to 4 cm in diameter.) - Derm Derm: Normal color, Warm and dry - Extremities Extremities: No calf tenderness / cord - Neuro Neuro: Alert and oriented X 3, Normal speech Results - Vitals Vitals: Vital Signs - 24 hr 02/20/19 02/20/19 13:53 15:01 Temperature 36 C L Heart Rate 77 72 Respiratory 22 16 Rate Blood Pressure 159/96 H 138/75 H O2 Saturation 95 98 Oxygen O2 Source [Without Activity] Room air O2 Source Room air - Labs Labs: Laboratory Tests 02/20/19 02/20/19 02/20/19 14:35 14:35 14:35 WBC 10.9 H RBC 5.08 Hgb 13.6 Hct 44.0 MCV 86.6 MCH 26.8 L MCHC 30.9 L RDW 19.2 H Plt Count 377 MPV 9.2 Neut # (Auto) 7.9 H Lymph # (Auto) 1.8 [place] # (Auto) 0.9 Eos # (Auto) 0.3 Baso # (Auto) 0.1 Absolute Nucleated RBC 0.00 Nucleated RBC % 0.0 PT 12.3 INR 1.1 Sodium 139 Potassium 3.5 Chloride 97 L Carbon Dioxide 29 Anion Gap 13.0 BUN 18 Creatinine 0.6 Estimated GFR (MDRD) 101 Glucose 149 H Calcium 10.0 Total Bilirubin 0.5 AST 30 ALT 25 Alkaline Phosphatase 118 Total Protein 7.3 Albumin 4.0 Globulin 3.3 Albumin/Globulin Ratio 1.2 Lipase 47 - Rads (name of study) CT A/P Radiology: EMP read contemporaneously (1. There is mildly dilated, fluid-filled proximal small bowel. Distal small bowel loops are decompressed. Findings are suspicious for small bowel obstruction, likely partial or low-grade. Likely transition point in the region of the patient's prior surgery. 2. Within the anterior peritoneum, deep to the patient's surgical scar, there is an irregular, circumscribed fluid and air collection measuring 2.5 x 3.5 x 5.5 cm of (for example image 59 series 3). Differential considerations include irregular segment of small bowel or possibly extra enteric collection. Favoring the former is presence of this finding on the previous examination. 3. Deep to the surgical scar within the anterior abdominal wall, there is a small region of soft tissue density measuring about 2 x 3 cm. There is no definite evidence of drainable fluid collection. 4. There is no acute solid abdominal organ abnormality. There is left nephrolithiasis.) PD MEDICAL DECISION MAKING - ED course ED course: 63-year-old woman with multiple comorbidities presents with sudden severe abdominal pain and lack of flatus or bowel movements with intractable vomiting consistent with a small bowel obstruction which is proven on CT. She was unable to tolerate oral contrast here and vomited all up. An NG tube was placed and consulted with Dr. Underwood, the on-call surgeon by phone who will follow along and Dr. Gay for admission at 5 PM. Departure - Departure Disposition: 66 [facility] DC/Xfer Clinical Impression: Small bowel obstruction Condition: Serious
[2019-02-20] MEDS ORDERED: IOVERSOL 320 50 ML VIAL ONE (14:13)
[2019-02-20] MEDS ORDERED: IOVERSOL 320 100 ML VIAL IVP ONE ×2 (14:13→16:16)
[2019-02-20 14:41] LABS: BASOPHILS # (AUTO) 0.1 10^3/uL (0.0-0.1); BASOPHILS % (AUTO) 0.6 %; EOSINOPHILS # (AUTO) 0.3 10^3/uL (0.0-0.7); EOSINOPHILS % (AUTO) 2.5 %; HGB - HEMOGLOBIN 13.6 g/dL (12.0-16.0); LYMPHOCYTES # (AUTO) 1.8 10^3/uL (1.5-3.5); LYMPHOCYTES % (AUTO) 16.2 %; MEAN CORPUSCULAR HEMOGLOBIN 26.8 pg (27.0-31.0); MEAN CORPUSCULAR HGB CONC 30.9 g/dL (32.0-36.0); MEAN CORPUSCULAR VOLUME 86.6 fL (81.0-99.0); MEAN PLATELET VOLUME 9.2 fL (7.9-10.8); MONOCYTES # (AUTO) 0.9 10^3/uL (0.0-1.0); NEUTROPHILS # (AUTO) 7.9 10^3/uL (1.5-6.6); PLT - PLATELET COUNT 377 10^3/uL (130-450); RED BLOOD COUNT 5.08 10^6/uL (4.20-5.40); RED CELL DISTRIBUTION WIDTH 19.2 % (12.0-15.0); WHITE BLOOD COUNT 10.9 x10^3/uL (4.8-10.8)
[2019-02-20 14:46] LABS: INR 1.1 (0.8-1.2); PT - PROTHROMBIN TIME 12.3 secs (9.9-12.6)
[2019-02-20 14:54] LABS: ALBUMIN/GLOBULIN RATIO 1.2 (1.0-2.2); BILIRUBIN,TOTAL 0.5 mg/dL (0.2-1.0); CREATININE 0.6 mg/dL (0.4-1.0); TOTAL PROTEIN 7.3 g/dL (6.7-8.2)
[2019-02-20] MEDS ORDERED: ONDANSETRON 4 MG/2 ML VIAL IVP STA (14:54)
[2019-02-20] MEDS ORDERED: IOVERSOL 320 50 ML VIAL PO ONE (16:16)
[2019-02-20] MEDS ORDERED: LIDOCAINE 2% URO-JET 5 ML SYRINGE UR STA (16:20)
--- NOTE | 2019-02-20 16:43 | CT Report ---
Reason: IV and PO (if tolerates), central abd pain Procedure Date: 02/20/2019 Accession Number: [id number] / [id number] Procedure: CT - Abdomen/Pelvis W CPT Code: FULL RESULT: EXAM: CT ABDOMEN AND PELVIS EXAM DATE: 02/20/2019 04:11 PM. CLINICAL HISTORY: Abdominal pain COMPARISONS: ABDOMEN/PELVIS W/ 12/20/2018 10:59 AM. TECHNIQUE: Routine helical CT imaging was performed through the abdomen and pelvis. IV contrast: OPTI 320 90ML. Enteric contrast: No. Reconstructions: Coronal and sagittal. In accordance with CT protocol optimization, one or more of the following dose reduction techniques were utilized for this exam: automated exposure control, adjustment of mA and/or KV based on patient size, or use of iterative reconstructive technique. FINDINGS: Lung Bases: Unremarkable. Liver: There is mild hepatic steatosis. No focal hepatic lesions are seen. Gallbladder/Bile Ducts: Unremarkable. Spleen: Normal. Pancreas: Normal. Adrenal Glands: Normal. Kidneys: There is a small nonobstructing stone within the left kidney. No evidence of distal obstructing stone or hydronephrosis. Peritoneal Cavity/Bowel: There is mildly dilated, fluid-filled small bowel. There is some mild associated fat stranding distal small bowel is decompressed. There is an anterior abdominal wall surgical defect. Deep to this defect, there is a fluid and air collection measuring approximately 2.5 x 3.5 x 5.5 cm (image 59 series 3). There is a 2 x 3 x 3 cm fluid density deep to the patient's anterior abdominal wall surgical scar (for example image 61 series 3). No acute colonic abnormalities are seen. There is no intraperitoneal free air. There are no enlarged mesenteric or retroperitoneal lymph nodes. No evidence of appendicitis. Stable peripherally calcified density within the anterior right peritoneum. Pelvic Organs: No acute abnormalities are seen. Vasculature: No aneurysms or other significant abnormality. Bones: No acute bony abnormalities. Other: None. IMPRESSION: 1. There is mildly dilated, fluid-filled proximal small bowel. Distal small bowel loops are decompressed. Findings are suspicious for small bowel obstruction, likely partial or low-grade. Likely transition point in the region of the patient's prior surgery. 2. Within the anterior peritoneum, deep to the patient's surgical scar, there is an irregular, circumscribed fluid and air collection measuring 2.5 x 3.5 x 5.5 cm of (for example image 59 series 3). Differential considerations include irregular segment of small bowel or possibly extra enteric collection. Favoring the former is presence of this finding on the previous examination. 3. Deep to the surgical scar within the anterior abdominal wall, there is a small region of soft tissue density measuring about 2 x 3 cm. There is no definite evidence of drainable fluid collection. 4. There is no acute solid abdominal organ abnormality. There is left nephrolithiasis. RADIA
[2019-02-20] MEDS: D5NS W/20 MEQ KCL 1,000 ML IV SCH (18:36)
[2019-02-20] MEDS: HYDROmorphone 1 MG/ML CARPUJECT IVP PRN (18:36)
[2019-02-20] MEDS: INSULIN REGULAR HUMAN 100 UNIT/1 ML 10 ML MDV SUBQ SCH (18:53)
--- NOTE | 2019-02-20 19:37 | CONSULTATION NOTE ---
Referring Provider Name of Referring Provider:: Dr. Gay Consult Date: 02/20/19 Chief Complaint - Chief Complaint Chief Complaint: abd pain, N/V History of Present Illness - Admitted From Admitted From:: ER - History Obtained From Records Reviewed: yes History obtained from: pt, records Exam Limitations: morbid obesity - History of Present Illness HPI Comment/Other: 63 yo female with sudden onset of severe upper abd pain radiating into her back immediately following a episcopalian potluck meal at noon today, associated with multiple episodes of nonbloody N/V but no fever, chills. She reports that she hasn't felt well for several days. She had been on ertapenem x 8 weeks for a SSI associated with mesh reconstruction of a strangulated ventral incisional hernia which was repaired in November and debrided with wound VAC placement in December of this year. Her wound has been healing well and her antibiotic was stopped approx 4 days ago. She has had chronic diarrhea associated with the antibiotic which also resolved with discontinuation of same. Her last nl bm was yesterday and she has noted no passage of flatus and minimal stool per rectum today. She is s/p multiple prior abd surgeries including cholecystectomy, hysterectomy, VIH repairs x 2, lysis of adhesions for SBO in 1991 but no subsequent episodes since, until now. No melena, hematochezia. She reports approx 20# wt loss over the past several months. Neg FH GI tumors. She has a hx of colon polyps, s/p multiple colonoscopies, most recently within the past 5 yrs she reports. Since NG tube insertion she reports feeling much better with no further abdominal pain but intermittent nausea and hiccoughs. CT abd/pelvis in the ER was notable for mildly dilated proximal small bowel and decompressed distal small bowel c/w partial or low grade SBO. Transition point was thought to be at the site of her most recent surgery. There was also noted a complex fluid collection deep to the abd wall at the prior surgery site present at prior CT in December of unclear etiology, thought most likely to be an irregular shaped loop of small bowel rather than an abscess. She was admitted for bowel rest and surgical consultation was requested. She denies any acute respiratory or urinary sx, or unusual oral intake. History - Past Medical History Cardiovascular: reports: Congestive heart failure, Hypertension Respiratory: reports: Other Neuro: reports: None Endocrine/Autoimmune: reports: Type 2 diabetes, Other GI: reports: GERD, Colon polyps, Chronic diarrhea (atributed to IBS and meds), Other COMPLIANCE ANALYST: reports: Ovarian cysts, Other : reports: Incontinence HEENT: reports: Chronic vision loss, Chronic sinusitis Psych: reports: Depression, Anxiety, Obsessive compulsive disorder, Other Musculoskeletal: reports: Osteoarthritis, Other (inflammatory arthritis) Derm: reports: Other MRSA Hx?: No - Past Surgical History General: reports: Cholecystectomy, Appendectomy, Bowel surgery, Other (BRITTANIE, VIH repairs x 2, I & D SSI with placement of wound VAC) Ortho: reports: Knee replacement /COMPLIANCE ANALYST: reports: 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, Oophrectomy Cardiovascular: reports: Cardiac catheterization HEENT: reports: Tonsil/Adenoidectomy - Family & Social History Family History Comment/Other: Patient's mother had asthma. Father had Alzheimer's disease and coronary artery disease and is . Patient's sister has PTSD from 911. 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 14 years ago she then went to [facility], [facility] and finally worked here at [facility] [employer]. . She is originally from the [place] in [facility]. She lives alone with her dog. She does not have any biological children. She is not . She is a smoker and continue to smoke a pack a day and has been smoking for 45 years. She does not drink alcohol. She did try to use cannibis for pain control but it did not work and she does not use any other illicit drugs. She describes a severe change in lifestyle when she first became ill ~2006. she has gradually lost her social network and has 2 friends plus her library club. Very lonely. Wants to . Would like. assisted suicide. - Substance History Use: Uses substance without health or social issues: Tobacco Abuse: Recurrent use of substance despite neg consequences: NONE - POLST Patient has POLST: Yes POLST Status: DNR Meds/Allgy - Home Medications Home Medications: Ambulatory Orders Medication Instructions Recorded Confirmed Aspirin [Aspirin EC] 650 mg PO 0800,1200,1600,199905/29/13 01/28/19 Metoprolol Tartrate 50 mg PO BID 05/29/13 01/28/19 Potassium Chloride 20 meq PO DAILY PRN 05/29/13 01/28/19 Glimepiride 1 mg PO QDBREAKFAST 03/03/17 01/28/19 metFORMIN [Glucophage] 1,000 mg PO BID 03/03/17 01/28/19 Fluticasone [Flonase] 1 sprays MATT DAILY 11/26/17 01/28/19 Propylene Glycol/Peg 400/Pf 1 drops EACHEYE QID PRN 11/26/17 01/28/19 [Systane 0.3-0.4% Eye Drop] Timolol 0.5% Ophth Drops [Timoptic 1 drops EACHEYE BID 11/26/17 01/28/19 0.5% Ophth Drops] Esomeprazole Magnesium [Nexium] 40 mg PO DAILY 05/03/18 01/28/19 Saccharomyces Boulardii [Florastor] 250 mg PO DAILY 05/03/18 01/28/19 Cetirizine [ZyrTEC] 10 mg PO DAILY PM 09/06/18 01/28/19 predniSONE [Deltasone] 17.5 mg PO DAILY 09/06/18 01/28/19 Calcitonin [Fortical] 1 sprays MATT DAILY 10/25/18 01/28/19 Bupropion HCl [Bupropion HCl Sr] 150 mg PO BID 12/21/18 01/28/19 Chlorhexidine Gluconate 15 ml MM DAILY 12/21/18 01/28/19 Ondansetron Odt [Zofran Odt] 4 mg PO TID 12/21/18 01/28/19 Nystatin [Nystop] 1 applic TOP QID PRN #1 bottle 12/24/18 01/28/19 - Allergies Allergies/Adverse Reactions: Allergies Allergy/AdvReac Type Severity Reaction Status Date / Time droperidol [From Inapsine] Allergy Severe EPS Verified 01/28/19 10:28 ibuprofen [From Motrin] Allergy Severe Anaphylaxis Verified 01/28/19 10:28 peanut Allergy Severe Anaphylaxis Verified 01/28/19 10:28 shellfish derived Allergy Severe Anaphylaxis Verified 01/28/19 10:28 [id number] Reductase Allergy Severe muscle pain Verified 01/28/19 10:28 Inhibitor amoxicillin [Amoxicillin] Allergy Intermediate Hives Verified 01/28/19 10:28 cefazolin Allergy Intermediate Hives Verified 01/28/19 10:28 Cephalosporins Allergy Intermediate Hives Verified 01/28/19 10:28 clindamycin Allergy Intermediate Hives Verified 01/28/19 10:28 cyclobenzaprine Allergy Intermediate Hives/night Verified 01/28/19 10:28 [Cyclobenzaprine] castaneda erythromycin base Allergy Intermediate Hives Verified 01/28/19 10:28 [Erythromycin Base] potassium clavulanate * Allergy Intermediate Hives Verified 01/28/19 10:28 [From Augmentin] ketorolac tromethamine * Allergy Anaphylaxis Verified 01/28/19 10:28 [From Toradol] adhesive tape AdvReac Severe BLISTERS Verified 01/28/19 10:28 duloxetine AdvReac Severe Suicidal Verified 01/28/19 10:28 etanercept [From Enbrel] AdvReac Severe Nausea/vomm Verified 01/28/19 10:28 iting/cramp s methotrexate AdvReac Severe N/V/Cramps Verified 01/28/19 10:28 NSAIDS (Non-Steroidal AdvReac Severe Anaphylaxis Verified 01/28/19 10:28 Anti-Inflamma prochlorperazine AdvReac Severe EPS Verified 01/28/19 10:28 pseudoephedrine AdvReac Severe Tachycardia Verified 01/28/19 10:28 sumatriptan AdvReac Severe Widened QRS Verified 01/28/19 10:28 doxycycline AdvReac Intermediate Hives Verified 01/28/19 10:28 gabapentin AdvReac Intermediate Gait Verified 01/28/19 10:28 disturbance latex AdvReac Intermediate Sensitivity Verified 01/28/19 10:28 morphine AdvReac Unknown Verified 01/28/19 10:28 prochlorperazine edisylate * AdvReac Unknown Verified 01/28/19 10:28 [From Compazine] prochlorperazine maleate * AdvReac Unknown Verified 01/28/19 10:28 [From Compazine] promethazine [From Phenergan] AdvReac Hallucinati Verified 01/28/19 10:28 ons Review of Systems - Constitutional Constitutional: reports: Poor appetite, Weight loss. denies: Fever, Chills - Cardiovascular Cariovascular: denies: Chest pain - Respiratory Respiratory: denies: Cough - Gastrointestinal Gastrointestinal: reports: Abdominal pain, Change in bowel habits, Nausea, Vomiting, Bile emesis, Reflux/heartburn, Bloating, Poor appetite. denies: Rectal bleeding, Black stools, Bloody stools, [place] blood emesis, Coffee grounds emesis - Genitourinary Genitourinary: denies: Dysuria - Hematologic/Lymphatic Hematologic/Lymphatic: denies: Blood clots, Bleeding tendencies - All Other Systems All Other Systems: reports: Reviewed and negative (or covered in HPI/PMH) Exam - Vital Signs Reviewed Vital Signs: Yes Vital Signs: Vital Signs x48h Temp Pulse Pulse Resp BP BP Pulse Ox 02/20/19 18:01 36.4 C L 71 18 171/99 H 92 02/20/19 16:58 37.1 C 70 21 111/97 H 95 02/20/19 15:01 72 16 138/75 H 98 02/20/19 13:53 36 C L 77 22 159/96 H 95 - Physical Exam General Appearance: positive: No acute distress, Alert Eyes Bilateral: positive: Normal inspection, Conjunctivae nml, No scleral icterus ENT: positive: Pharynx nml, Dry mucous membranes. negative: Pharyngeal erythema, Oral lesions Neck: positive: Nml inspection, No JVD. negative: Lymphadenopathy (R), Lymphadenopathy (L) Respiratory: positive: Chest non-tender, No respiratory distress, Breath sounds nml Cardiovascular: positive: Regular rate & rhythm, No murmur, No gallop Abdomen: positive: Non-tender, No organomegaly, Abnml bowel sounds (high pitched and tympanitic), Other (NG tube in place draining bilious fluid; wound vac dressing in place in the midline; device functioning appropriately at present.). negative: Hepatomegaly, Splenomegaly, Mass Extremities: positive: Pedal edema (bilat pretibial 2+), Other (excoriations over anterior tibias bilat right greater than left). negative: Calf tenderness Neurologic/Psychiatric: positive: Oriented x3 Conclusion/Plan - Diagnosis Diagnosis: small bowel obstruction, partial in pt with multiple prior abdominal procedures, most likely due to adhesions. No evidence of acute abdomen, intraabdominal sepsis, recurrent hernia or strangulation obstruction at present. - Plan Plan: Agree with admission, bowel rest, NG suction, observation, serial abd exams, xrays. If not clearly improved in AM, start gastrograffin challenge SBFT test. Will follow, Thanks. - Lab Results Fish Bones: 02/20/19 14:35 02/20/19 14:35 - Diagnostic Imaging Results Diagnostic Imaging Results: positive: Final report reviewed, Read independently Diagnostic Imaging Results Comments: See HPI
[2019-02-20] MEDS: METOPROLOL 5 MG/5 ML VIAL IVP SCH (21:21)
[2019-02-20] MEDS: FAMOTIDINE 20 MG/2 ML VIAL IVP SCH (21:26)
[2019-02-20] MEDS: methylPREDNISolone SUCCINATE 40 MG/ML VIAL IVP SCH (21:33)
--- NOTE | 2019-02-20 23:45 | HISTORY & PHYSICAL EXAMINATION ---
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 The patient usually describes having six soft bowel movements daily, and this morning, she noticed she had none. She has also not been passing flatus today. She was able to attend anabaptist on Thursday and then attended a [employer] nd admitted that she ate more than her usual. When she went home, she developed nausea, vomiting, and abdominal pain and presented to the emergency room. In the ER, she was given medications for her vomiting, and CT imaging was done using IV contrast and oral contrast was attempted, but she threw that up. The CT scan shows a small bowel obstruction with transition point at a previous surgical site. PAST MEDICAL HISTORY 1. Obesity. 2. Diabetes. 3. Sleep apnea. 4. Arthritis. 5. Irritable bowel syndrome. 6. Anxiety and depression. 7. Intermittent idiopathic right-sided brainstem swelling. 8. Chronic pain. 9. Hear failure. 10. Multiple drug allergies. ALLERGIES 1. DROPERIDOL 2. IBUPROFEN. 3. PEANUTS. 4. SHELLFISH. 5. STATINS. 6. AMOXICILLIN. 7. CEFAZOLIN. 8. CLINDAMYCIN. 9. CYCLOBENZAPRINE. 10. ERYTHROMYCIN. 11. TORADOL. 12. ADHESIVE TAPE. 13. DULOXETINE. 14. ENBREL. 15. METHOTREXATE. 16. NONSTEROIDAL ANTI-INFLAMMATORY MEDICATIONS. 17. PROCHLORPERAZINE. 18. SUDAFED. 19. SUMATRIPTAN. 20. DOXYCYCLINE 21. GABAPENTIN. 22. LATEX. 23. MORPHINE. 24. COMPAZINE. 25. PHENERGAN. CURRENT MEDICATIONS 1. Prednisone 17.5 mg daily. 2. Metformin 1000 mg b.i.d. 3. Timoptic eyedrops. 4. Florastor 250 daily. 5. Systane eyedrops. 6. Potassium 20 mEq daily p.r.n. 7. Zofran p.r.n. 8. Nystop topical. 9. Metoprolol tartrate 50 mg b.i.d. 10. Glimepiride 1 mg daily. 11. Flonase nasal spray daily. 12. Nexium 40 mg daily. 13. Ertapenem 1 gram IV daily until 5 days ago. (The duration of the course she completed is not known.) 14. Zyrtec 10 mg daily at night. 15. Calcitonin spray nasal daily. 16. Bupropion SR 150 mg b.i.d. 17. Enteric-coated aspirin 650 mg q.i.d. FAMILY HISTORY: No inherited diseases. SOCIAL HISTORY: She lives alone, there is no history of alcohol abuse or drug abuse, she has been an intermittent smoker. REVIEW OF SYSTEMS: A comprehensive review of systems is done by chart review and the pertinent positives are listed, the rest are negative. POLST: DNR. PHYSICAL EXAMINATION VITAL SIGNS: Blood pressure 130/70, heart rate 70 in sinus rhythm, afebrile, room air saturation 92%. HEENT: Unremarkable. Moist oral mucosa. NECK: Without JVD. LUNGS: Clear. HEART: Distant heart sounds. ABDOMEN: Obese. No bowel sounds, nontender to light palpation. EXTREMITIES: No clubbing, cyanosis or edema. NEUROLOGIC: Grossly intact. LABORATORY DATA: Normal electrolytes. Normal BUN and creatinine. Glucose 149. Normal liver tests. Normal lipase. Normal INR. White blood count 10.9 with a left shift, hemoglobin 13.6, platelet count 377. IMAGING: No chest x-rays was done. Abdomen and pelvis CT showed mildly dilated fluid-filled proximal small bowel, but the distal small bowel loops are decompressed; therefore, suspicious for bowel obstruction, likely partial or low-grade with the transition point at the region of the patient's prior surgery. There is also a circumcised fluid and air collection in a segment of the small bowel, which was present on the previous exam and there is left nephrolithiasis. IMPRESSION/DIAGNOSES 1. Small bowel obstruction, imaging shows that it is probably related to adhesions from her prior surgery. 2. History of hernia repair. 3. History of seroma of the digestive tract after a digestive tract procedure. 4. Sleep apnea 5. Morbid obesity with a body mass index of 49. 6. Diabetes mellitus type 2. 7. History of heart failure. 8. Multiple DRUG ALLERGIES. PLAN: Admit the patient to a medical/surgical bed. Begin IV fluids and n.p.o. status for bowel rest. Place an NG tube with low suction continuously for decompression. Start IV antiemetics, IV pain medications and start sliding scale insulin coverage for an n.p.o. patient. Continue her other medications, if possible by their IV form, from her home medication list. Follow electrolytes daily. General surgery consult requested to follow along in case she needs surgery. DEEP VENOUS THROMBOSIS PROPHYLAXIS: SCDs. CODE STATUS: DNR. ATTESTATION: The patient is expected to be discharged or transferred to another facility within 96 hours: Yes. cc: Giulia Lutz MD TD: 02/20/2019 18:13 MTDD
[2019-02-21] MEDS: INSULIN REGULAR HUMAN 100 UNIT/1 ML 10 ML MDV SUBQ SCH ×5 (00:25→23:59)
[2019-02-21] MEDS: SODIUM CHLORIDE FLUSH 0.9% 10 ML SYRINGE IVP SCH ×3 (04:03→16:32)
[2019-02-21] MEDS: ONDANSETRON 4 MG/2 ML VIAL IVP PRN ×3 (04:03→21:06)
[2019-02-21] MEDS: D5NS W/20 MEQ KCL 1,000 ML IV SCH ×3 (04:23→16:44)
[2019-02-21 05:07] LABS: BASOPHILS % (AUTO) 0.3 %; EOSINOPHILS % (AUTO) 0.3 %; HGB - HEMOGLOBIN 12.8 g/dL (12.0-16.0); LYMPHOCYTES # (AUTO) 0.5 10^3/uL (1.5-3.5); LYMPHOCYTES % (AUTO) 6.2 %; MEAN CORPUSCULAR HEMOGLOBIN 26.7 pg (27.0-31.0); MEAN CORPUSCULAR HGB CONC 31.1 g/dL (32.0-36.0); MEAN PLATELET VOLUME 9.1 fL (7.9-10.8); MONOCYTES # (AUTO) 0.1 10^3/uL (0.0-1.0); MONOCYTES % (AUTO) 1.1 %; NEUTROPHILS % (AUTO) 91.7 %; PLT - PLATELET COUNT 323 10^3/uL (130-450); RED BLOOD COUNT 4.79 10^6/uL (4.20-5.40); RED CELL DISTRIBUTION WIDTH 19.2 % (12.0-15.0); WHITE BLOOD COUNT 7.6 x10^3/uL (4.8-10.8)
--- NOTE | 2019-02-21 05:08 | XRAY Report ---
Reason: f/u sbo Procedure Date: 02/21/2019 Accession Number: [id number] / [id number] Procedure: XR - Abdomen 2 View X-Ray CPT Code: 19087 FULL RESULT: EXAM: ABDOMEN RADIOGRAPHY EXAM DATE: 02/21/2019 04:55 AM. CLINICAL HISTORY: Follow-up small bowel obstruction. COMPARISON: CT ABDOMEN/PELVIS W/ 02/20/2019 4:06 PM. TECHNIQUE: 2 views. FINDINGS: Lung Bases: Unremarkable. Bowel Gas Pattern: Dilated small bowel loops with a few air fluid levels. Free Air: None. Other: Enteric tube tip in the proximal stomach. IMPRESSION: 1. There are some persistent dilated small bowel loops consistent with obstruction. 2. Enteric tube in the proximal stomach. RADIA
[2019-02-21 05:21] LABS: CREATININE 0.5 mg/dL (0.4-1.0); MAGNESIUM 1.4 mg/dL (1.7-2.8)
[2019-02-21 05:22] LABS: HB2 TOTAL 13.8 g/dL; HEMOGLOBIN A1C 0.6 g/dL; HEMOGLOBIN A1C % 6.1 % (4.6-6.2)
[2019-02-21] MEDS: HYDROmorphone 1 MG/ML CARPUJECT IVP PRN ×4 (05:52→21:05)
[2019-02-21] MEDS: METOPROLOL 5 MG/5 ML VIAL IVP SCH ×3 (06:03→22:24)
[2019-02-21] MEDS ORDERED: MAGNESIUM SULFATE 2 GRAM 2 GM/50 ML BAG IV ONE (06:51)
[2019-02-21] MEDS ORDERED: DIATR MEGLU/DIATRIZOATE SODIUM 120 ML BOTTLE PO ONE (07:46)
[2019-02-21] MEDS: FAMOTIDINE 20 MG/2 ML VIAL IVP SCH ×2 (08:55→21:06)
[2019-02-21] MEDS: methylPREDNISolone SUCCINATE 40 MG/ML VIAL IVP SCH ×2 (08:55→21:12)
[2019-02-21] MEDS: SODIUM CHLORIDE FLUSH 0.9% 10 ML SYRINGE IVP PRN ×2 (08:56→19:01)
[2019-02-21] MEDS ORDERED: FLUCONAZOLE 200 MG/100 ML 100 ML IV SCH (09:00)
--- NOTE | 2019-02-21 09:33 | PROVIDER PROGRESS NOTE ---
Assessment/Plan - Problem List (1) Small bowel obstruction Assessment/Plan: appears to be improving. Rec: gastrgraffin SBFT challenge test today. - Current Meds Current Meds: Current Medications Generic Name Dose Route Start Last Admin Trade Name Freq PRN Reason Stop Dose Admin Famotidine 20 mg 02/20/19 21:00 02/21/19 08:55 Pepcid IVP 20 mg BID RIVERA Administration Hydromorphone HCl 1 mg 02/20/19 17:07 02/21/19 05:52 Dilaudid Inj Carp IVP 1 mg Q2HR PRN Administration Pain 8 to 10 Potassium Chloride/Dextrose/Sod Cl 1,000 mls @ 100 mls/hr 02/20/19 18:00 02/21/19 06:43 IV 100 mls/hr .Q10H RIVERA Infusion Fluconazole 100 mls @ 100 mls/hr 02/21/19 09:00 02/21/19 08:56 Diflucan 200 Mg/100 Ml IV 02/22/19 21:00 100 mls/hr DAILY RIVERA Administration Insulin Human Regular 1 - 5 unit 02/20/19 18:30 02/21/19 06:10 Novolin R SUBQ 2 unit Q6HR RIVERA Administration Protocol Methylprednisolone 20 mg 02/20/19 21:00 02/21/19 08:55 Solu-Medrol (40mg Vial) IVP 20 mg BID RIVERA Administration Metoprolol Tartrate 5 mg 02/20/19 22:00 02/21/19 06:03 Lopressor Inj IVP 5 mg Q8HR RIVERA Administration Ondansetron HCl 4 mg 02/20/19 17:13 02/21/19 04:03 Zofran Inj IVP 4 mg Q6H PRN Administration Nausea / Vomiting Sodium Chloride 10 ml 02/20/19 17:07 02/21/19 08:56 Normal Saline Flush 0.9% IVP 10 ml PRN PRN Administration NEEDED PER PROVIDER ORDERS Sodium Chloride 10 ml 02/21/19 01:00 02/21/19 08:56 Normal Saline Flush 0.9% IVP 10 ml 0100,0900,1700 RIVERA Administration - Lab Result Lab results reviewed: Yes Fish Bone Diagrams: 02/21/19 05:00 02/21/19 05:00 - Diagnostic Imaging Results Diagnostic Imaging Results: Final report reviewed, Read independently Diagnostic Imaging Results Comments: 2 view abd series this am shows dilated loops of small bowel with a/f levels as well as gas and stool in the colon, c/w partial SBO. - Additional Planning Condition/Complexity: Improved My Orders: My Active Orders 02/21/19 07:46 SBFT Challenge Panel [XR] Urgent 02/21/19 08:53 No-Charge 1V Abdomen [XR] Routine Plan Discussed with:: Patient Time Spent: 15-30 minutes Subjective - Subjective Patient Reports: Feeling Better, Abdominal Pain (markedly improved; passing fl atus and a small amount of stool, but no her usual amount), Nausea (but no vomiting with NG in place) Objective Vital Signs: Vital Signs - 24 hr 02/20/19 02/20/19 02/20/19 13:53 15:01 16:58 Temperature 36 C L 37.1 C Heart Rate 77 72 70 Heart Rate [ Brachial] Heart Rate [ Radial] Respiratory 22 16 21 Rate Blood Pressure 159/96 H 138/75 H 111/97 H Blood Pressure [Right Radial artery] O2 Saturation 95 98 95 02/20/19 02/20/19 02/20/19 18:01 21:21 21:27 Temperature 36.4 C L Heart Rate Heart Rate [ 71 80 71 Brachial] Heart Rate [ Radial] Respiratory 18 Rate Blood Pressure 145/73 H Blood Pressure 171/99 H 145/73 H 126/76 [Right Radial artery] O2 Saturation 92 02/20/19 02/20/19 02/20/19 21:31 21:36 21:41 Temperature Heart Rate Heart Rate [ 71 67 75 Brachial] Heart Rate [ Radial] Respiratory Rate Blood Pressure Blood Pressure 135/83 H 143/80 H 153/83 H [Right Radial artery] O2 Saturation 02/20/19 02/20/19 02/20/19 21:59 22:09 22:32 Temperature Heart Rate Heart Rate [ 62 64 70 Brachial] Heart Rate [ Radial] Respiratory Rate Blood Pressure Blood Pressure 119/72 120/75 134/70 H [Right Radial artery] O2 Saturation 02/21/19 02/21/19 02/21/19 00:00 01:30 05:00 Temperature 36.7 C 36.9 C 36.7 C Heart Rate Heart Rate [ 83 77 Brachial] Heart Rate [ Radial] Respiratory 18 18 Rate Blood Pressure Blood Pressure 143/74 H 149/95 H [Right Radial artery] O2 Saturation 94 93 02/21/19 02/21/19 02/21/19 05:57 06:03 06:25 Temperature Heart Rate Heart Rate [ Brachial] Heart Rate [ 88 66 Radial] Respiratory Rate Blood Pressure 154/94 H Blood Pressure 154/94 H 142/79 H [Right Radial artery] O2 Saturation Oxygen O2 Source [Without Activity] Room air O2 Source Room air I&O (Last 24 Hrs): Intake and Output Totals x24h 02/19/19 02/20/19 02/21/19 23:59 23:59 23:59 Intake Total 697 1293.333 Output Total 1750 550 Balance -1053 743.333 NG output 1500 plus emesis yesterday 02/21/19 09:35 General: Alert, Oriented x3, Cooperative, No acute distress Abdomen: Soft, No tenderness, No hepatospenomegaly, No masses, Other (high pitched, tympanitic bowel tones; obese; intact wound vac dressing in place;) - Results Results: Laboratory Results WBC 7.6 x10^3/uL (4.8-10.8) 02/21/19 05:00 RBC 4.79 10^6/uL (4.20-5.40) 02/21/19 05:00 Hgb 12.8 g/dL (12.0-16.0) 02/21/19 05:00 Hct 41.2 % (37.0-47.0) 02/21/19 05:00 MCV 86.0 fL (81.0-99.0) 02/21/19 05:00 MCH 26.7 pg (27.0-31.0) L 02/21/19 05:00 MCHC 31.1 g/dL (32.0-36.0) L 02/21/19 05:00 RDW 19.2 % (12.0-15.0) H 02/21/19 05:00 Plt Count 323 10^3/uL (130-450) 02/21/19 05:00 MPV 9.1 fL (7.9-10.8) 02/21/19 05:00 Neut # (Auto) 7.0 10^3/uL (1.5-6.6) H 02/21/19 05:00 Lymph # (Auto) 0.5 10^3/uL (1.5-3.5) L 02/21/19 05:00 [place] # (Auto) 0.1 10^3/uL (0.0-1.0) 02/21/19 05:00 Eos # (Auto) 0.0 10^3/uL (0.0-0.7) 02/21/19 05:00 Baso # (Auto) 0.0 10^3/uL (0.0-0.1) 02/21/19 05:00 Absolute Nucleated RBC 0.00 x10^3/uL 02/21/19 05:00 Nucleated RBC % 0.0 /100WBC 02/21/19 05:00 PT 12.3 secs (9.9-12.6) 02/20/19 14:35 INR 1.1 (0.8-1.2) 02/20/19 14:35 Sodium 140 mmol/L (135-145) 02/21/19 05:00 Potassium 4.1 mmol/L (3.5-5.0) 02/21/19 05:00 Chloride 101 mmol/L (101-111) 02/21/19 05:00 Carbon Dioxide 28 mmol/L (21-32) 02/21/19 05:00 Anion Gap 11.0 (6-13) 02/21/19 05:00 BUN 11 mg/dL (6-20) 02/21/19 05:00 Creatinine 0.5 mg/dL (0.4-1.0) 02/21/19 05:00 Estimated GFR (MDRD) 125 (>89) 02/21/19 05:00 Glucose 221 mg/dL (70-100) H 02/21/19 05:00 POC Whole Bld Glucose 209 mg/dL (70 - 100) H 02/21/19 05:55 Glycated Hemoglobin 6.1 % (4.6-6.2) 02/21/19 05:00 Estim Average Glucose 128 (70-100) H 02/21/19 05:00 Calcium 9.0 mg/dL (8.5-10.3) 02/21/19 05:00 Magnesium 1.4 mg/dL (1.7-2.8) L 02/21/19 05:00 Total Bilirubin 0.5 mg/dL (0.2-1.0) 02/20/19 14:35 AST 30 IU/L (10-42) 02/20/19 14:35 ALT 25 IU/L (10-60) 02/20/19 14:35 Alkaline Phosphatase 118 IU/L (42-121) 02/20/19 14:35 Total Protein 7.3 g/dL (6.7-8.2) 02/20/19 14:35 Albumin 4.0 g/dL (3.2-5.5) 02/20/19 14:35 Globulin 3.3 g/dL (2.1-4.2) 02/20/19 14:35 Albumin/Globulin Ratio 1.2 (1.0-2.2) 02/20/19 14:35 Lipase 47 U/L (22-51) 02/20/19 14:35 - Procedures Procedures: Procedures ARTHROCENTESIS (08/24/14) EXCISION OF ABD SUBCU/FASCIA, OPEN APPROACH (12/19/18) PACKED CELL TRANSFUSION (08/24/14) RONALD OF KNEE REPLACEMENT, PATELLAR COMPONENT (05/02/14) RONALD OF TOTAL KNEE REPLACEMENT, TIBIAL INSERT (LINER) (05/02/14) SUPPLEMENT ABDOMINAL WALL WITH SYNTH SUB, OPEN APPROACH (11/25/18) TOTAL KNEE REPLACEMENT (08/08/14) VENOUS CATHETERIZATION NEC (08/24/14) ABX Reporting Has patient been on IV antibiotics over the past 48 hours?: No
--- NOTE | 2019-02-21 10:04 | PROVIDER PROGRESS NOTE ---
Assessment/Plan - Problem List (1) Small bowel obstruction Assessment/Plan: She reports having flatus and a "smear of stool". She denies nausea and has less abdominal pain, is requesting iv Tylenol. ng decompression and npo status continues. Gastrograffin challenge with SBFT today. Dr Devyn Underwood following along from General Surgery standpoint (2) DM type 2 (diabetes mellitus, type 2) Assessment/Plan: Her A1c was 6.1 this admission, indicating good DM control, and she was on Glucophage and Glimiperide at home She remains npo here, therefore is on ss Insulin coverage for fingerstick glu checks q6h. (3) Infected seroma, postoperative Assessment/Plan: Her iv daily antibiotics were stopped just 6 days ago. No suggestion of recurrent infection there She still has a wound vac, and it is due to be changed today (per Candy RN at ), and the RN does not have experience in that. Will order a [facility] consult to change the wound vac. Dr Devyn Underwood following along. (4) Hypomagnesemia Assessment/Plan: She has a Hx of chronic low Mg, as per the EMR. Replace with iv Mg riders. Follow serum Mg daily. (5) Anxiety Assessment/Plan: Her oral Bupropion is on hold during npo status. Ativan iv prn anxiety will be ordered. (6) Chronic pain Qualifiers: Chronic pain type: chronic pain syndrome Qualified Code(s): G89.4 - Chronic pain syndrome Assessment/Plan: She is on chronic steroids: Prednisone 17.5 mg daily currently. This was changed to iv Solumedrol, at a slightly higher dose equivalent, for treatment with a stress-response dose, while she is npo. (7) Chronic diastolic heart failure Assessment/Plan: She had Echos done here in 2013 and 2016 that showed preserved LVEF but diastolic dysfunction grade 1 was reported. Presumably that is why she is on Metoprolol, because I cannit find a Hx of HTN in the EMR. Her oral Metoprolol was changed to iv Lopressor 5 mg q8h, while she is npo. Also, iv fluid rate during npo status needs to be watched. - Current Meds Current Meds: Current Medications Generic Name Dose Route Start Last Admin Trade Name Freq PRN Reason Stop Dose Admin Famotidine 20 mg 02/20/19 21:00 02/21/19 08:55 Pepcid IVP 20 mg BID RIVERA Administration Hydromorphone HCl 1 mg 02/20/19 17:07 02/21/19 05:52 Dilaudid Inj Carp IVP 1 mg Q2HR PRN Administration Pain 8 to 10 Potassium Chloride/Dextrose/Sod Cl 1,000 mls @ 100 mls/hr 02/20/19 18:00 02/21/19 06:43 IV 100 mls/hr .Q10H RIVERA Infusion Fluconazole 100 mls @ 100 mls/hr 02/21/19 09:00 02/21/19 08:56 Diflucan 200 Mg/100 Ml IV 02/22/19 21:00 100 mls/hr DAILY RIVERA Administration Insulin Human Regular 1 - 5 unit 02/20/19 18:30 02/21/19 06:10 Novolin R SUBQ 2 unit Q6HR RIVERA Administration Protocol Methylprednisolone 20 mg 02/20/19 21:00 02/21/19 08:55 Solu-Medrol (40mg Vial) IVP 20 mg BID RIVERA Administration Metoprolol Tartrate 5 mg 02/20/19 22:00 02/21/19 06:03 Lopressor Inj IVP 5 mg Q8HR RIVERA Administration Ondansetron HCl 4 mg 02/20/19 17:13 02/21/19 04:03 Zofran Inj IVP 4 mg Q6H PRN Administration Nausea / Vomiting Sodium Chloride 10 ml 02/20/19 17:07 02/21/19 08:56 Normal Saline Flush 0.9% IVP 10 ml PRN PRN Administration NEEDED PER PROVIDER ORDERS Sodium Chloride 10 ml 02/21/19 01:00 02/21/19 08:56 Normal Saline Flush 0.9% IVP 10 ml 0100,0900,1700 RIVERA Administration - Lab Result Fish Bone Diagrams: 02/21/19 05:00 02/21/19 05:00 - Additional Planning My Orders: My Active Orders 02/20/19 17:07 Activity Orders [RC] Q2HR IO [RC] IOSHIFT Initiate Bowel Care Protocol [RC] .protocol Initiate Line Care Protocol [RC] QSHIFT Initiate Personal Care Protoco [RC] .protocol Oxygen Therapy [RC] .PRN Vital Signs [RC] Q4HR HYDROmorphone INJ CARP [Dilaudid Inj Carp] 1 mg IVP Q2HR PRN Sodium Chloride Flush 0.9% [Normal Saline Flush 0.9%] 10 ml IVP PRN PRN Code Status [OTHERS] Routine Condition of Patient [OTHERS] Routine DVT Prophylaxis [OTHERS] Routine 02/20/19 17:09 Daily Weight [RC] 0600 SCDs [RC] QSHIFT NPO except Meds [DIET] 02/20/19 17:10 General Surgery Consult [CONS] Routine 02/20/19 17:11 NG Tube Care [RC] Q4HR 02/20/19 17:13 Ondansetron Inj [Zofran Inj] 4 mg IVP Q6H PRN 02/20/19 18:00 D5ns W/20 Meq KCl 1,000 ml IV 100 mls/hr 02/20/19 18:14 Blood Glucose POC [RC] 0000,0600,1200,1800 02/20/19 18:15 Initiate Hypoglycemia Protocol [RC] .protocol 02/20/19 18:26 Nutrition Consult [CONS] Routine 02/20/19 18:30 Insulin Regular Human [NovoLIN R] 1 - 5 unit SUBQ Q6HR 02/20/19 21:00 Famotidine [Pepcid] 20 mg IVP BID methylPREDNISolone SUCCINATE [SOLU-Medrol (40MG VIAL)] 20 mg IVP BID 02/20/19 22:00 Metoprolol Inj [Lopressor Inj] 5 mg IVP Q8HR 02/21/19 01:00 Sodium Chloride Flush 0.9% [Normal Saline Flush 0.9%] 10 ml IVP 0100,0900,1700 02/22/19 05:00 BMP - BASIC METABOLIC PANEL [CHEM] DAILYLAB CBC - COMP BLD CT W/AUTO DIFF [HEME] DAILYLAB MAGNESIUM [CHEM] DAILYLAB 02/23/19 05:00 BMP - BASIC METABOLIC PANEL [CHEM] DAILYLAB CBC - COMP BLD CT W/AUTO DIFF [HEME] DAILYLAB 02/24/19 05:00 BMP - BASIC METABOLIC PANEL [CHEM] DAILYLAB CBC - COMP BLD CT W/AUTO DIFF [HEME] DAILYLAB Subjective - Subjective Patient Reports: Resting Comfortably Nursing Reports: Other (Requests iv Tylenol for pain) Objective Vital Signs: Vital Signs - 24 hr 02/20/19 02/20/19 02/20/19 13:53 15:01 16:58 Temperature 36 C L 37.1 C Heart Rate 77 72 70 Heart Rate [ Brachial] Heart Rate [ Radial] Respiratory 22 16 21 Rate Blood Pressure 159/96 H 138/75 H 111/97 H Blood Pressure [Right Radial artery] O2 Saturation 95 98 95 02/20/19 02/20/19 02/20/19 18:01 21:21 21:27 Temperature 36.4 C L Heart Rate Heart Rate [ 71 80 71 Brachial] Heart Rate [ Radial] Respiratory 18 Rate Blood Pressure 145/73 H Blood Pressure 171/99 H 145/73 H 126/76 [Right Radial artery] O2 Saturation 92 02/20/19 02/20/19 02/20/19 21:31 21:36 21:41 Temperature Heart Rate Heart Rate [ 71 67 75 Brachial] Heart Rate [ Radial] Respiratory Rate Blood Pressure Blood Pressure 135/83 H 143/80 H 153/83 H [Right Radial artery] O2 Saturation 02/20/19 02/20/19 02/20/19 21:59 22:09 22:32 Temperature Heart Rate Heart Rate [ 62 64 70 Brachial] Heart Rate [ Radial] Respiratory Rate Blood Pressure Blood Pressure 119/72 120/75 134/70 H [Right Radial artery] O2 Saturation 02/21/19 02/21/19 02/21/19 00:00 01:30 05:00 Temperature 36.7 C 36.9 C 36.7 C Heart Rate Heart Rate [ 83 77 Brachial] Heart Rate [ Radial] Respiratory 18 18 Rate Blood Pressure Blood Pressure 143/74 H 149/95 H [Right Radial artery] O2 Saturation 94 93 02/21/19 02/21/19 02/21/19 05:57 06:03 06:25 Temperature Heart Rate Heart Rate [ Brachial] Heart Rate [ 88 66 Radial] Respiratory Rate Blood Pressure 154/94 H Blood Pressure 154/94 H 142/79 H [Right Radial artery] O2 Saturation 02/21/19 08:00 Temperature 36.5 C Heart Rate Heart Rate [ Brachial] Heart Rate [ 78 Radial] Respiratory 18 Rate Blood Pressure Blood Pressure 159/81 H [Right Radial artery] O2 Saturation 97 Oxygen O2 Source [Without Activity] Room air O2 Source Room air I&O (Last 24 Hrs): Intake and Output Totals x24h 02/19/19 02/20/19 02/21/19 23:59 23:59 23:59 Intake Total 697 1343.333 Output Total 1750 550 Balance -1053 793.333 General: Alert, Oriented x3 HEENT: Mucous membr. moist/pink, Other (hng tube in place) Neck: Supple, Other (Obese neck) Neuro: Alert, Non Focal Cardiovascular: Regular rate Respiratory: No respiratory distress Abdomen: Soft, Other (Obese with pannus, no bowel sounds) Extremities: No edema - Results Results: Laboratory Results WBC 7.6 x10^3/uL (4.8-10.8) 02/21/19 05:00 RBC 4.79 10^6/uL (4.20-5.40) 02/21/19 05:00 Hgb 12.8 g/dL (12.0-16.0) 02/21/19 05:00 Hct 41.2 % (37.0-47.0) 02/21/19 05:00 MCV 86.0 fL (81.0-99.0) 02/21/19 05:00 MCH 26.7 pg (27.0-31.0) L 02/21/19 05:00 MCHC 31.1 g/dL (32.0-36.0) L 02/21/19 05:00 RDW 19.2 % (12.0-15.0) H 02/21/19 05:00 Plt Count 323 10^3/uL (130-450) 02/21/19 05:00 MPV 9.1 fL (7.9-10.8) 02/21/19 05:00 Neut # (Auto) 7.0 10^3/uL (1.5-6.6) H 02/21/19 05:00 Lymph # (Auto) 0.5 10^3/uL (1.5-3.5) L 02/21/19 05:00 [place] # (Auto) 0.1 10^3/uL (0.0-1.0) 02/21/19 05:00 Eos # (Auto) 0.0 10^3/uL (0.0-0.7) 02/21/19 05:00 Baso # (Auto) 0.0 10^3/uL (0.0-0.1) 02/21/19 05:00 Absolute Nucleated RBC 0.00 x10^3/uL 02/21/19 05:00 Nucleated RBC % 0.0 /100WBC 02/21/19 05:00 PT 12.3 secs (9.9-12.6) 02/20/19 14:35 INR 1.1 (0.8-1.2) 02/20/19 14:35 Sodium 140 mmol/L (135-145) 02/21/19 05:00 Potassium 4.1 mmol/L (3.5-5.0) 02/21/19 05:00 Chloride 101 mmol/L (101-111) 02/21/19 05:00 Carbon Dioxide 28 mmol/L (21-32) 02/21/19 05:00 Anion Gap 11.0 (6-13) 02/21/19 05:00 BUN 11 mg/dL (6-20) 02/21/19 05:00 Creatinine 0.5 mg/dL (0.4-1.0) 02/21/19 05:00 Estimated GFR (MDRD) 125 (>89) 02/21/19 05:00 Glucose 221 mg/dL (70-100) H 02/21/19 05:00 POC Whole Bld Glucose 209 mg/dL (70 - 100) H 02/21/19 05:55 Glycated Hemoglobin 6.1 % (4.6-6.2) 02/21/19 05:00 Estim Average Glucose 128 (70-100) H 02/21/19 05:00 Calcium 9.0 mg/dL (8.5-10.3) 02/21/19 05:00 Magnesium 1.4 mg/dL (1.7-2.8) L 02/21/19 05:00 Total Bilirubin 0.5 mg/dL (0.2-1.0) 02/20/19 14:35 AST 30 IU/L (10-42) 02/20/19 14:35 ALT 25 IU/L (10-60) 02/20/19 14:35 Alkaline Phosphatase 118 IU/L (42-121) 02/20/19 14:35 Total Protein 7.3 g/dL (6.7-8.2) 02/20/19 14:35 Albumin 4.0 g/dL (3.2-5.5) 02/20/19 14:35 Globulin 3.3 g/dL (2.1-4.2) 02/20/19 14:35 Albumin/Globulin Ratio 1.2 (1.0-2.2) 02/20/19 14:35 Lipase 47 U/L (22-51) 02/20/19 14:35 - Procedures Procedures: Procedures ARTHROCENTESIS (08/24/14) EXCISION OF ABD SUBCU/FASCIA, OPEN APPROACH (12/19/18) PACKED CELL TRANSFUSION (08/24/14) RONALD OF KNEE REPLACEMENT, PATELLAR COMPONENT (05/02/14) RONALD OF TOTAL KNEE REPLACEMENT, TIBIAL INSERT (LINER) (05/02/14) SUPPLEMENT ABDOMINAL WALL WITH SYNTH SUB, OPEN APPROACH (11/25/18) TOTAL KNEE REPLACEMENT (08/08/14) VENOUS CATHETERIZATION NEC (08/24/14)
[2019-02-21] MEDS ORDERED: MAGNESIUM SULFATE 2 GRAM 2 GM/50 ML BAG IV SCH (10:30)
[2019-02-21] MEDS: LORazepam 2 MG/ML VIAL IVP PRN ×2 (10:44→18:57)
--- NOTE | 2019-02-21 11:49 | XRAY Report ---
Reason: 15 MIN POST GASTROGRAFIN FILM/ EVAL FOR SBO Procedure Date: 02/21/2019 Accession Number: [id number] / [id number] Procedure: XR - No-Charge 1V Abdomen CPT Code: 20033 FULL RESULT: EXAM: ABDOMEN RADIOGRAPHY EXAM DATE: 02/21/2019 09:28 AM. CLINICAL HISTORY: 15 MIN POST GASTROGRAFIN FILM/ EVAL FOR SBO. COMPARISON: ABDOMEN 2 VIEW 02/21/2019 4:21 AM ABDOMEN/PELVIS W/ 02/20/2019 4:06 PM. TECHNIQUE: 1 view (3 images). FINDINGS: Bowel Gas Pattern: Enteric tube tip is in the body of the stomach, similar to prior. There is enteric contrast within the nondilated stomach and nondilated proximal small bowel. There are borderline dilated gas-filled loops of bowel in the left side of the abdomen measuring up to 3.8 cm in diameter, previously 4.4 cm. Gaseous distention of small bowel is less conspicuous compared to prior. Other: There are surgical clips in the right upper quadrant of the abdomen. No dense consolidation in the visualized lung bases. No acute osseous body. IMPRESSION: 1. Enteric contrast is in the nondilated stomach and nondilated proximal small bowel. 2. Borderline dilated gas-filled loops of small bowel in the left side of the abdomen are decreased in diameter and conspicuity compared to the prior abdominal radiographs. RADIA
[2019-02-21] MEDS: ACETAMINOPHEN 1,000 MG/100 ML 100 ML IV PRN ×2 (12:08→22:03)
[2019-02-21] MEDS ORDERED: MAGNESIUM SULFATE 1 GM in SODIUM CHLORIDE 0.9% 50 ML IV SCH (14:00)
--- NOTE | 2019-02-21 14:15 | XRAY Report ---
Reason: 4 HOUR FILM GASTROGRAFIN CHALLENGE Procedure Date: 02/21/2019 Accession Number: [id number] / [id number] Procedure: XR - No-Charge 1V Abdomen CPT Code: 75953 FULL RESULT: EXAM: ABDOMEN RADIOGRAPHY EXAM DATE: 02/21/2019 01:06 PM. CLINICAL HISTORY: 4 HOUR FILM GASTROGRAFIN CHALLENGE. COMPARISON: NO CHARGE 1V ABDOMEN 02/21/2019 9:05 AM. TECHNIQUE: 2 views. FINDINGS/ IMPRESSION: 1. Oral contrast opacifies several segments of small bowel and colon. The bowel gas pattern is nonobstructive. 2. Otherwise, no significant change. Enteric tube again seen in a nondilated stomach. The imaged lung bases are unremarkable. RADIA
[2019-02-22] MEDS: LORazepam 2 MG/ML VIAL IVP PRN (02:42)
[2019-02-22] MEDS: SODIUM CHLORIDE FLUSH 0.9% 10 ML SYRINGE IVP SCH ×2 (02:42→09:18)
[2019-02-22] MEDS: HYDROmorphone 1 MG/ML CARPUJECT IVP PRN (02:43)
[2019-02-22] MEDS: D5NS W/20 MEQ KCL 1,000 ML IV SCH (02:50)
--- NOTE | 2019-02-22 06:31 | XRAY Report ---
Reason: 12 hour post gastrogafin,SBFT Procedure Date: 02/21/2019 Accession Number: [id number] / [id number] Procedure: XR - No-Charge 1V Abdomen CPT Code: 60992 FULL RESULT: EXAM: ABDOMEN RADIOGRAPHY EXAM DATE: 02/21/2019 10:17 PM. CLINICAL HISTORY: 12 hour post gastrografin. COMPARISON: NO CHARGE 1V ABDOMEN 02/21/2019 12:44 PM. TECHNIQUE: 2 views. FINDINGS: Lung Bases: Unremarkable. Bowel Gas Pattern: Oral contrast seen within the colon. A few loops of proximal small bowel demonstrating mild distention. Free Air: None. Other: None. IMPRESSION: 1. Oral contrast now within the colon. 2. A few loops of proximal small bowel demonstrating mild distention. RADIA
[2019-02-22 06:46] LABS: BASOPHILS % (AUTO) 0.1 %; HGB - HEMOGLOBIN 12.4 g/dL (12.0-16.0); LYMPHOCYTES # (AUTO) 0.5 10^3/uL (1.5-3.5); MEAN CORPUSCULAR HEMOGLOBIN 27.1 pg (27.0-31.0); MEAN CORPUSCULAR HGB CONC 31.1 g/dL (32.0-36.0); MEAN CORPUSCULAR VOLUME 87.3 fL (81.0-99.0); MEAN PLATELET VOLUME 9.2 fL (7.9-10.8); MONOCYTES # (AUTO) 0.3 10^3/uL (0.0-1.0); MONOCYTES % (AUTO) 3.6 %; NEUTROPHILS % (AUTO) 89.2 %; PLT - PLATELET COUNT 345 10^3/uL (130-450); RED BLOOD COUNT 4.57 10^6/uL (4.20-5.40); RED CELL DISTRIBUTION WIDTH 19.2 % (12.0-15.0)
[2019-02-22] MEDS: INSULIN REGULAR HUMAN 100 UNIT/1 ML 10 ML MDV SUBQ SCH ×2 (06:49→12:46)
[2019-02-22] MEDS: METOPROLOL 5 MG/5 ML VIAL IVP SCH (06:50)
[2019-02-22] MEDS: ONDANSETRON 4 MG/2 ML VIAL IVP PRN (06:51)
[2019-02-22] MEDS: ACETAMINOPHEN 1,000 MG/100 ML 100 ML IV PRN (06:51)
[2019-02-22 06:59] LABS: CALCIUM 8.9 mg/dL (8.5-10.3); CREATININE 0.5 mg/dL (0.4-1.0); MAGNESIUM 2.3 mg/dL (1.7-2.8); PHOSPHORUS 3.4 mg/dL (2.5-4.6)
--- NOTE | 2019-02-22 08:05 | PROVIDER PROGRESS NOTE ---
Assessment/Plan - Problem List (1) Small bowel obstruction Assessment/Plan: Clinically resolved; rec: clear liquid diet, advance to low residue as liliana; perhaps home this afternoon if tolerates diet well. - Current Meds Current Meds: Current Medications Generic Name Dose Route Start Last Admin Trade Name Freq PRN Reason Stop Dose Admin Famotidine 20 mg 02/20/19 21:00 02/21/19 21:06 Pepcid IVP 20 mg BID RIVERA Administration Hydromorphone HCl 1 mg 02/20/19 17:07 02/22/19 02:43 Dilaudid Inj Carp IVP 1 mg Q2HR PRN Administration Pain 8 to 10 Fluconazole 100 mls @ 100 mls/hr 02/21/19 09:00 02/21/19 10:00 Diflucan 200 Mg/100 Ml IV 02/22/19 21:00 Infused DAILY RIVERA Infusion Acetaminophen 100 mls @ 400 mls/hr 02/21/19 12:00 02/22/19 07:14 Ofirmev IV Infused Q6HR PRN Infusion PAIN Insulin Human Regular 1 - 5 unit 02/20/19 18:30 02/22/19 06:49 Novolin R SUBQ 1 unit Q6HR RIVERA Administration Protocol Lorazepam 0.5 mg 02/21/19 10:26 02/22/19 02:42 Ativan Inj (Vial) IVP 0.5 mg Q4H PRN Administration Anxiety Methylprednisolone 20 mg 02/20/19 21:00 02/21/19 21:12 Solu-Medrol (40mg Vial) IVP 20 mg BID RIVERA Administration Metoprolol Tartrate 5 mg 02/20/19 22:00 02/22/19 06:50 Lopressor Inj IVP 5 mg Q8HR RIVERA Administration Ondansetron HCl 4 mg 02/20/19 17:13 02/22/19 06:51 Zofran Inj IVP 4 mg Q6H PRN Administration Nausea / Vomiting Sodium Chloride 10 ml 02/20/19 17:07 02/21/19 19:01 Normal Saline Flush 0.9% IVP 10 ml PRN PRN Administration NEEDED PER PROVIDER ORDERS Sodium Chloride 10 ml 02/21/19 01:00 02/22/19 02:42 Normal Saline Flush 0.9% IVP 10 ml 0100,0900,1700 RIVERA Administration - Lab Result Lab results reviewed: Yes Fish Bone Diagrams: 02/22/19 06:35 02/22/19 06:40 - Diagnostic Imaging Results Diagnostic Imaging Results: Final report reviewed, Read independently Diagnostic Imaging Results Comments: 4 hour SBFT challenge films show contrast in small and large bowel with nonobstructive pattern c/w resolving SBO - Additional Planning Condition/Complexity: Improved My Orders: My Active Orders 02/21/19 07:46 SBFT Challenge Panel [XR] Urgent Plan Discussed with:: Patient, Other (hospitalist) Time Spent: 15-30 minutes Subjective - Subjective Patient Reports: Feeling Better (no N/V; loose bms; no abd pain; hungry. NG tube was removed yesterday.), Resting Comfortably Objective Vital Signs: Vital Signs - 24 hr 02/21/19 02/21/19 02/21/19 11:49 13:23 13:28 Temperature 36.5 C Heart Rate [ 68 Brachial] Heart Rate [ 77 Radial] Respiratory 15 18 Rate Blood Pressure 137/69 H Blood Pressure 137/73 H [Right Radial artery] O2 Saturation 92 02/21/19 02/21/19 02/21/19 13:48 13:55 14:33 Temperature Heart Rate [ 72 Brachial] Heart Rate [ Radial] Respiratory 18 Rate Blood Pressure Blood Pressure 165/75 H 143/99 H 147/83 H [Right Radial artery] O2 Saturation 95 02/21/19 02/21/19 02/21/19 16:04 21:00 22:10 Temperature 36.4 C L 36.3 C L Heart Rate [ Brachial] Heart Rate [ 70 68 60 Radial] Respiratory 20 16 Rate Blood Pressure Blood Pressure 147/86 H 167/83 H 124/62 [Right Radial artery] O2 Saturation 92 95 02/21/19 02/22/19 23:45 06:50 Temperature 36.3 C L Heart Rate [ Brachial] Heart Rate [ 62 Radial] Respiratory 16 Rate Blood Pressure 155/91 H Blood Pressure 114/69 [Right Radial artery] O2 Saturation 93 Oxygen O2 Source [Without Activity] Room air O2 Source Room air I&O (Last 24 Hrs): Intake and Output Totals x24h 02/20/19 02/21/19 02/22/19 23:59 23:59 23:59 Intake Total 697 2538.000 1096.667 Output Total 1750 550 Balance -1053 8797.381 7383.667 General: Alert, Oriented x3, Cooperative, No acute distress Abdomen: Soft, No tenderness, No hepatospenomegaly, No masses - Results Results: Laboratory Results WBC 9.0 x10^3/uL (4.8-10.8) 02/22/19 06:35 RBC 4.57 10^6/uL (4.20-5.40) 02/22/19 06:35 Hgb 12.4 g/dL (12.0-16.0) 02/22/19 06:35 Hct 39.9 % (37.0-47.0) 02/22/19 06:35 MCV 87.3 fL (81.0-99.0) 02/22/19 06:35 MCH 27.1 pg (27.0-31.0) 02/22/19 06:35 MCHC 31.1 g/dL (32.0-36.0) L 02/22/19 06:35 RDW 19.2 % (12.0-15.0) H 02/22/19 06:35 Plt Count 345 10^3/uL (130-450) 02/22/19 06:35 MPV 9.2 fL (7.9-10.8) 02/22/19 06:35 Neut # (Auto) 8.0 10^3/uL (1.5-6.6) H 02/22/19 06:35 Lymph # (Auto) 0.5 10^3/uL (1.5-3.5) L 02/22/19 06:35 Lyon # (Auto) 0.3 10^3/uL (0.0-1.0) 02/22/19 06:35 Eos # (Auto) 0.0 10^3/uL (0.0-0.7) 02/22/19 06:35 Baso # (Auto) 0.0 10^3/uL (0.0-0.1) 02/22/19 06:35 Absolute Nucleated RBC 0.00 x10^3/uL 02/22/19 06:35 Nucleated RBC % 0.0 /100WBC 02/22/19 06:35 PT 12.3 secs (9.9-12.6) 02/20/19 14:35 INR 1.1 (0.8-1.2) 02/20/19 14:35 Sodium 139 mmol/L (135-145) 02/22/19 06:40 Potassium 4.3 mmol/L (3.5-5.0) 02/22/19 06:40 Chloride 101 mmol/L (101-111) 02/22/19 06:40 Carbon Dioxide 28 mmol/L (21-32) 02/22/19 06:40 Anion Gap 10.0 (6-13) 02/22/19 06:40 BUN 11 mg/dL (6-20) 02/22/19 06:40 Creatinine 0.5 mg/dL (0.4-1.0) 02/22/19 06:40 Estimated GFR (MDRD) 125 (>89) 02/22/19 06:40 Glucose 192 mg/dL (70-100) H 02/22/19 06:40 POC Whole Bld Glucose 146 mg/dL (70 - 100) H 02/22/19 06:38 Glycated Hemoglobin 6.1 % (4.6-6.2) 02/21/19 05:00 Estim Average Glucose 128 (70-100) H 02/21/19 05:00 Calcium 8.9 mg/dL (8.5-10.3) 02/22/19 06:40 Phosphorus 3.4 mg/dL (2.5-4.6) 02/22/19 06:40 Magnesium 2.3 mg/dL (1.7-2.8) 02/22/19 06:40 Total Bilirubin 0.5 mg/dL (0.2-1.0) 02/20/19 14:35 AST 30 IU/L (10-42) 02/20/19 14:35 ALT 25 IU/L (10-60) 02/20/19 14:35 Alkaline Phosphatase 118 IU/L (42-121) 02/20/19 14:35 Total Protein 7.3 g/dL (6.7-8.2) 02/20/19 14:35 Albumin 4.0 g/dL (3.2-5.5) 02/20/19 14:35 Globulin 3.3 g/dL (2.1-4.2) 02/20/19 14:35 Albumin/Globulin Ratio 1.2 (1.0-2.2) 02/20/19 14:35 Lipase 47 U/L (22-51) 02/20/19 14:35 - Procedures Procedures: Procedures ARTHROCENTESIS (08/24/14) EXCISION OF ABD SUBCU/FASCIA, OPEN APPROACH (12/19/18) PACKED CELL TRANSFUSION (08/24/14) RONALD OF KNEE REPLACEMENT, PATELLAR COMPONENT (05/02/14) RONALD OF TOTAL KNEE REPLACEMENT, TIBIAL INSERT (LINER) (05/02/14) SUPPLEMENT ABDOMINAL WALL WITH SYNTH SUB, OPEN APPROACH (11/25/18) TOTAL KNEE REPLACEMENT (08/08/14) VENOUS CATHETERIZATION NEC (08/24/14) ABX Reporting Has patient been on IV antibiotics over the past 48 hours?: No
[2019-02-22] MEDS ORDERED: NYSTATIN POWDER 15 GM TOP PRN (08:16)
[2019-02-22] MEDS ORDERED: predniSONE 5 MG TABLET PO SCH (09:00)
[2019-02-22] MEDS ORDERED: predniSONE 10 MG TABLET PO SCH (09:00)
[2019-02-22] MEDS ORDERED: CALCITONIN NASAL SPRAY NAS SCH (09:00)
[2019-02-22] MEDS ORDERED: buPROPion SR 150 MG TABLET PO SCH (09:00)
[2019-02-22] MEDS ORDERED: SACCHAROMYCES BOULARDII 250 MG CAPSULE PO SCH (09:00)
[2019-02-22] MEDS ORDERED: TIMOLOL 0.5% OPHTH DROPS EACHEYE SCH (09:00)
[2019-02-22] MEDS ORDERED: FAMOTIDINE 20 MG TABLET PO SCH (09:00)
[2019-02-22] MEDS ORDERED: FLUCONAZOLE 100 MG TABLET PO SCH (09:00)
[2019-02-22] MEDS: METOPROLOL TARTRATE 50 MG TABLET PO SCH ×2 (09:17→09:29)
--- NOTE | 2019-02-22 10:18 | Discharge Plan ---
Discharge Plan Problem Reviewed?: Yes Disposition: Home, Self Care Condition: Fair Diet: Regular Activity Restrictions: Activity as Tolerated Shower Restrictions: No Driving Restrictions: No Health Concerns: You presented with an unfortunate history of having previous abdominal surgery for incarcerated hernia dating back to November,. You then had an infected seroma at the incision site and have been on ertapenem until 5 days ago. You presented to our hospital with increasing abdominal pain. In the emergency room you were having pain, nausea and vomiting. CAT scan of the abdomen shows you to have an early small bowel obstruction. You also have a history of constant daily frequent soft stools. You are a diabetic who is on metformin. Plan of Treatment: You were placed on ice chips only. Your bowel symptoms are gradually resolved and you are now having stool and flatus. You have progressed from a clear liquid diet to a normal diet without recurrence of your abdominal pain. General surgery was following you. They feel you no longer need any surgical intervention. You still have chronic wound management issues with a wound VAC. Emily Smith, the nurse in the surgeon's office, is following you for that. You spoke to Emily today. Care Goals: 1. Follow-up with Dr. Underwood or Dr. Cervantes' office for wound management. Emily is your contact in that office. 2. Consider changing your metformin to a different medicine. Metformin may be contributing to daily frequent stools. 3. Eat a low residual diet for the next 2 to 3 weeks and gradually return to your usual diabetic diet. Assessment: Patient understands her plan and will follow-up as instructed No Smoking: If you smoke, Please STOP! Call for help. Follow-up with: GIRMA LOPEZ MD [Primary Care Provider] -
[2019-02-22] MEDS ORDERED: MIN OIL/DIMETHICON/COCONUT OIL 92 GM TUBE TOP PRN (11:55)
[2019-02-22 13:43] VITALS: BP 130/80
[2019-02-22] MEDS ORDERED: CETIRIZINE 10 MG TABLET PO SCH (21:00)
--- NOTE | 2019-02-25 10:58 | DISCHARGE SUMMARY ---
Physician: Eileen Stoll MD DATE OF ADMISSION: 02/20/2019 DATE OF DISCHARGE: 02/22/2019 DISCHARGE DIAGNOSES 1. Small-bowel obstruction. 2. Type 2 diabetes mellitus, controlled, not on long-term use of insulin. 3. Postoperative seroma involving digestive system after digestive system procedure. 4. Hypomagnesemia. 5. Anxiety. 6. Chronic pain. 7. Chronic diastolic heart failure. DISCHARGE MEDICATIONS 1. Aspirin 650 mg every day. 2. Bupropion 150 mg extended release twice a day. 3. Calcitonin nasal spray daily. 4. Zyrtec 10 mg daily. 5. Chlorhexidine mouthwash as needed. 6. Nexium 40 mg daily. 7. Fluconazole 200 mg daily. Last day of therapy to be 02/22/2019. 8. Flonase nasal spray. 9. Glimepiride 1 mg every morning before meals. 10. Metformin 1000 mg b.i.d. 11. Metoprolol tartrate 50 mg b.i.d. 12. Zofran 4 mg t.i.d. 13. Potassium chloride 20 mEq daily. 14. Prednisone 75 mg daily. 15. Propylene glycol 1 drop each eye q.i.d. as needed. 16. Florastor 250 mg daily. 17. Timolol ophthalmic solution 1 drop each eye daily. 18. Nystatin topical solution to pannus daily as needed. PRINCIPAL PROCEDURES 1. Abdomen and pelvis CT with mildly dilated fluid-filled proximal small bowel. Distal small bowel loops are decompressed. Findings suspicious for small-bowel obstruction, likely partial or low-grade . Likely transition point is in the region of the patient's prior surgery. Within the anterior francisco javier toneum deep to the patient's surgical scar, there is an irregular circumscribed fluid-air fluid level measuring 2.5 x 3.5 x 5.5 cm. Differential considerations are irregular segment of small bowel, or possibly extra enteric fluid collection, favoring the former, since this was present on previous exam ination CT. Deep to the surgical scar within the anterior abdominal wall, there is a small region of soft tissue density measuring 2 x 3 cm. 2. Daily abdominal x-rays done with Gastrografin challenge shows oral contrast opacified in several segments of the small bowel and colon. Bowel gas pattern is nonobstructive. Imaged lung bases unrem arkable. HOSPITAL COURSE: She is a 63-year-old, short statured, morbidly obese female with diabetes. 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 She underwent a hernia repair in November 2018 for incarcerated hernia and developed an infe cted seroma near the surgical site. She was hospitalized for that as well after being readmitted pos toperatively. She was on ertapenem for many weeks and just finished this five days ago. Ertapenem w as through a port. She has 6 soft small bowel movements daily. This morning, she noted she had none when she woke up. She was also not passing flatus. She had increasing abdominal pain, was unable t o yazidi at [facility], attended a pot-luck dinner, and admitted that she ate more than usual in spite o f these symptoms. She came to the Emergency Room. She was identified as having a possible small-bow el obstruction. The patient did not have a fever, and she had a mildly elevated white cell count of 10.9. General [facility] was consulted with Dr. Devyn Underwood. She was kept n.p.o., and a Gastrografin challenge was per formed. The patient gradually opened up over the next couple of days. She was transitioned from kimberley ars to a regular diet quickly, and had no further abdominal pain. She continues to have the wound [facility] for her resolving infected seroma, and is in close contact with Emily Smith nurse in the surgeon 's office, who is following the wound. During her stay, her diabetes mellitus was controlled. Gluco se was in the 130s to 170s. Occasionally, it was 203 to 209. She has known chronic diastolic heart failure. She did not have any evidence of fluid overload or congestive heart failure during her stay . Anxiety disorder was maintained by using her usual medications. Since she was now eating normally, passing stool and gas normally, patient was felt stable for [facility]. PHYSICAL EXAMINATION VITAL SIGNS: Temperature was 36.5, pulse 60, blood pressure 130/80, respirations 16, 97% on room air . GENERAL: She is a short statured female at 5 feet 1/2 inch tall and weighs 119 kg. Alert, vivacious personality, from the [facility]. NECK: Supple. No goiter. LUNGS: Clear to auscultation and percussion without any increased respiratory effort. Fast rapid sp eech pattern without any increased respiratory effort while talking enthusiastically. HEART: PMI is normally placed with a regular rate and rhythm. ABDOMEN: Soft, has a wound VAC in place. Normal bowel sounds. EXTREMITIES: Warm, and she is able to ambulate in the hallway in her room using a cane. 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 She has no leg edema present. GENITOURINARY: She is incontinent of urine and needs a brief or a pad. DISCHARGE INSTRUCTIONS: She is asked to followup with General Surgery for her wound, followup of the partial small-bowel obstruction. She is to be in a low-residue diet. Resume her usual medications. Greater than 30 minutes was spent coordinating discharge and discussing the case with Dr. Underwood. TD: 02/25/2019 10:14
== END 2019-02-22 01:35 | disposition home or self-care (01) | DRG 389 ==
LOC: EDUNIT# → ED 13:52 → MS2 17:07
PROVIDERS: ADMIT Internal Medicine; ATTEND Specialist
DX: K56.609 Unspecified intestinal obstruction, unspecified as to partial versus complete obstruction (principal); I50.9 Heart failure, unspecified; K56.51 Intestinal adhesions [bands], with partial obstruction; I50.32 Chronic diastolic (congestive) heart failure; E24.2 Drug-induced Cushing's syndrome; Z68.42 Body mass index [BMI] 45.0-49.9, adult; K68.11 Postprocedural retroperitoneal abscess; I11.0 Hypertensive heart disease with heart failure; T81.42XD Infection following a procedure, deep incisional surgical site, subsequent encounter; Y83.8 Other surgical procedures as the cause of abnormal reaction of the patient, or of later complication, without mention of misadventure at the time of the procedure; F17.201 Nicotine dependence, unspecified, in remission; E11.9 Type 2 diabetes mellitus without complications; Z98.890 Other specified postprocedural states; E83.42 Hypomagnesemia; G89.29 Other chronic pain; M19.90 Unspecified osteoarthritis, unspecified site; G47.30 Sleep apnea, unspecified; F17.210 Nicotine dependence, cigarettes, uncomplicated; E66.01 Morbid (severe) obesity due to excess calories; I27.20 Pulmonary hypertension, unspecified; K58.0 Irritable bowel syndrome with diarrhea; K21.9 Gastro-esophageal reflux disease without esophagitis; G90.2 Horner's syndrome; R32 Unspecified urinary incontinence; H54.7 Unspecified visual loss; J32.9 Chronic sinusitis, unspecified; F41.9 Anxiety disorder, unspecified; N20.0 Calculus of kidney; F32.9 Major depressive disorder, single episode, unspecified; S80.812A Abrasion, left lower leg, initial encounter; S80.811A Abrasion, right lower leg, initial encounter; F42.9 Obsessive-compulsive disorder, unspecified; X58.XXXA Exposure to other specified factors, initial encounter; Z96.659 Presence of unspecified artificial knee joint; Z66 Do not resuscitate; Z79.82 Long term (current) use of aspirin; Z79.84 Long term (current) use of oral hypoglycemic drugs; T38.0X5S Adverse effect of glucocorticoids and synthetic analogues, sequela; Z86.69 Personal history of other diseases of the nervous system and sense organs; Z79.52 Long term (current) use of systemic steroids
CPT/HCPCS: 36415; 74019; 74177; 74250; 80048; 80053; 83036; 83690; 83735; 84100; 85025; 85610; 96361; 96374; 96375; 96376; 99285; A6250; A9270; J0131; J1170; J1815; J2060; J2765; J7040; J7512; Q9963; Q9967; 74018

== ENCOUNTER 2019-02-20 14:38 | Outpatient (CLI) | payer MEDICARE, MEDICAID | END 2019-02-20 14:39 | disposition critical access hospital (66) | LOC: EMS 14:38 | PROVIDERS: ATTEND Surgery | DX: R10.9 Unspecified abdominal pain (principal); R11.2 Nausea with vomiting, unspecified | CPT/HCPCS: A0425; A0429 ==

== ENCOUNTER 2019-02-27 14:51 | Emergency (ER) | payer MEDICARE, MEDICAID ==
[2019-02-27 15:48] LABS: BASOPHILS % (AUTO) 0.4 %; EOSINOPHILS # (AUTO) 0.2 10^3/uL (0.0-0.7); EOSINOPHILS % (AUTO) 2.5 %; LYMPHOCYTES # (AUTO) 1.4 10^3/uL (1.5-3.5); LYMPHOCYTES % (AUTO) 15.5 %; MEAN CORPUSCULAR HEMOGLOBIN 26.8 pg (27.0-31.0); MEAN CORPUSCULAR HGB CONC 30.5 g/dL (32.0-36.0); MEAN CORPUSCULAR VOLUME 87.9 fL (81.0-99.0); MEAN PLATELET VOLUME 9.2 fL (7.9-10.8); MONOCYTES # (AUTO) 0.8 10^3/uL (0.0-1.0); MONOCYTES % (AUTO) 8.8 %; NEUTROPHILS # (AUTO) 6.4 10^3/uL (1.5-6.6); NEUTROPHILS % (AUTO) 71.8 %; PLT - PLATELET COUNT 352 10^3/uL (130-450); RED BLOOD COUNT 4.48 10^6/uL (4.20-5.40)
[2019-02-27] MEDS ORDERED: IOVERSOL 320 100 ML VIAL IVP ONE (15:56)
[2019-02-27 16:00] LABS: ALBUMIN 3.3 g/dL (3.2-5.5); BILIRUBIN,TOTAL 0.4 mg/dL (0.2-1.0); CALCIUM 9.2 mg/dL (8.5-10.3); CREATININE 0.6 mg/dL (0.4-1.0); MAGNESIUM 1.6 mg/dL (1.7-2.8); TOTAL PROTEIN 6.7 g/dL (6.7-8.2)
--- NOTE | 2019-02-27 16:01 | XRAY Report ---
Reason: fever Procedure Date: 02/27/2019 Accession Number: [id number] / [id number] Procedure: XR - Chest 1 View X-Ray CPT Code: 64261 FULL RESULT: EXAM: CHEST RADIOGRAPHY EXAM DATE: 02/27/2019 03:25 PM. CLINICAL HISTORY: Fever. COMPARISON: Chest radiograph from 10/30/2017. TECHNIQUE: 1 view. FINDINGS: Lungs/Pleura: Allowing for soft tissue attenuation in the lung bases. No focal airspace opacities are demonstrated. No pleural effusion or pneumothorax. Mediastinum: Cardiac silhouette is mildly enlarged. Mediastinal contour and pulmonary vasculature are within normal limits. Other: There is a left Port-A-Cath terminating in the mid- distal SVC. Surgical ankle screws present in the right humeral head. IMPRESSION: No acute cardiopulmonary abnormality. RADIA
[2019-02-27] MEDS ORDERED: HYDROmorphone 2 MG/ML VIAL IVP STA (16:42)
[2019-02-27] MEDS ORDERED: CIPROFLOXACIN 400 MG/200 ML 200 ML IV ONE (16:46)
--- NOTE | 2019-02-27 16:48 | CT Report ---
Reason: lower abd wound purulent drainage Procedure Date: 02/27/2019 Accession Number: [id number] / [id number] Procedure: CT - Abdomen/Pelvis W CPT Code: FULL RESULT: EXAM: CT ABDOMEN AND PELVIS EXAM DATE: 02/27/2019 04:29 PM HISTORY: lower abd wound purulent drainage COMPARISON: ABDOMEN/PELVIS W/ 02/20/2019 4:06 PM TECHNIQUE: Routine helical CT imaging was performed through the abdomen and pelvis. IV contrast: 90 mL Optiray 320. Enteric contrast: No. Reconstructions: Coronal and sagittal. In accordance with CT protocol optimization, one or more of the following dose reduction techniques were utilized for this exam: automated exposure control, adjustment of mA and/or KV based on patient size, or use of iterative reconstructive technique. FINDINGS: LOWER CHEST: Unremarkable. SOLID ORGANS: Within exam limitations, there is no significant abnormality of the liver, spleen, pancreas, adrenal glands or kidneys. Small rim calcified focus adjacent to the inferior margin of the liver anteriorly is probably an old focus of fat necrosis. GALLBLADDER/BILE DUCTS: Status post cholecystectomy. No evidence of abnormal biliary distention. PERITONEAL CAVITY/BOWEL: No abnormal bowel distention. This is improved compared to previous. There is continued visualization of a heterogeneous anterior peritoneal fluid and air collection which appears to be continuous with a deep subcutaneous collection at the periumbilical region. Overall size of the 2 collections is similar to previous, approximately 5 cm diameter with possible fistulous tract to the skin surface. No significant change in this apparent abscess compared to the previous exam. Adjacent mild fatty edema also unchanged. No new intraperitoneal abnormality. CENTRAL RETROPERITONEUM: Mild calcific atherosclerotic disease of the aortoiliac system. No aortic aneurysm. No retroperitoneal lymphadenopathy. PELVIS: Anterior fluid collection as described above. Unremarkable urinary bladder. Uterus not seen. OTHER: Skeleton: No acute skeletal abnormality. IMPRESSION: 1. Resolved appearance of mechanical small bowel obstruction. 2. Persistent anterior peritoneal cavity fluid collection/abscess extending into the anterior abdominal wall without significant change from prior. RADIA
[2019-02-27] MEDS ORDERED: HYDROmorphone 1 MG/ML CARPUJECT IVP STA (17:36)
[2019-02-27] MEDS ORDERED: ONDANSETRON 4 MG/2 ML VIAL IVP STA (18:13)
--- NOTE | 2019-02-27 18:16 | ED Physician Documentation ---
PD HPI WOUND RECHECK - Stated complaint Stated Complaint: TEMP/VOMITING - Chief complaint Chief Complaint: Abd Pain - Histroy obtained from History obtained from: Patient - History of Present Illness Location: Abdomen Timing - onset: Today (The patient has had an umbilical wound dehiscence with abscess after a incarcerated hernia repair done in November. He has been getting wound care with wound VAC and had been getting smaller and healing in. There is been minimal drainage. She had recently been admitted for a bowel obstruction secondary to adhesions on the eighth of this month and was in the hospital for a few days. She had been doing well since then with normal eating and bowel movements. She had had minimal drainage from the wound VAC the last for 5 days until today when she suddenly had an abrupt amount of purulent fetid material come out from the wound VAC tubing as well as just from under and around the dressing for the wound VAC. She came in for evaluation. She denies any chills. She states she had a low-grade temperature of 100 today.) Similar symptoms before: Diagnosis (She states the drainage and smell were similar to the first abscess she had postoperatively that required surgical drainage.) Recently seen: Emergency Dept, Admitted (1 week ago for bowel obstruction. At that point she was not having any purulent drainage from her wound.) Review of Systems Constitutional: reports: Fever. denies: Chills, Myalgias Nose: denies: Rhinorrhea / runny nose, Congestion Throat: denies: Sore throat Respiratory: denies: Cough GI: reports: Abdominal Pain. 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: Ovarian cysts, Other : Incontinence HEENT: Chronic vision loss, Chronic sinusitis Psych: Depression, Anxiety, Obsessive compulsive disorder, Other Musculoskeletal: Osteoarthritis, Other Derm: Other - Past Surgical History Past Surgical History: Yes General: Cholecystectomy, Appendectomy, Bowel surgery, Other Ortho: Knee replacement /COMMERCIAL PLUMBER: 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, Oophrectomy Cardiovascular: Cardiac catheterization HEENT: Tonsil/Adenoidectomy - Present Medications Home Medications: Ambulatory Orders Medication Instructions Recorded Confirmed Aspirin [Aspirin EC] 650 mg PO 0800,1200,1600,2000 05/29/13 02/21/19 Metoprolol Tartrate 50 mg PO BID 05/29/13 02/21/19 Potassium Chloride 20 meq PO DAILY PRN 05/29/13 02/21/19 Glimepiride 1 mg PO QDBREAKFAST 03/03/17 02/21/19 metFORMIN [Glucophage] 1,000 mg PO BID 03/03/17 02/21/19 Fluticasone [Flonase] 1 sprays MATT DAILY 11/26/17 02/21/19 Propylene Glycol/Peg 400/Pf 1 drops EACHEYE QID PRN 11/26/17 02/21/19 [Systane 0.3-0.4% Eye Drop] Timolol 0.5% Ophth Drops [Timoptic 1 drops EACHEYE BID 11/26/17 02/21/19 0.5% Ophth Drops] Esomeprazole Magnesium [Nexium] 40 mg PO DAILY 05/03/18 02/21/19 Saccharomyces Boulardii [Florastor] 250 mg PO DAILY 05/03/18 02/21/19 Cetirizine [ZyrTEC] 10 mg PO DAILY PM 09/06/18 02/21/19 predniSONE [Deltasone] 17.5 mg PO DAILY 09/06/18 02/21/19 Calcitonin [Fortical] 1 sprays MATT DAILY 10/25/18 02/21/19 Bupropion HCl [Bupropion HCl Sr] 150 mg PO BID 12/21/18 02/21/19 Chlorhexidine Gluconate 15 ml MM DAILY 12/21/18 02/21/19 Ondansetron Odt [Zofran Odt] 4 mg PO TID 12/21/18 02/21/19 Nystatin [Nystop] 1 applic TOP QID PRN #1 bottle 12/24/18 02/21/19 Fluconazole 200 mg PO DAILY 02/21/19 02/21/19 Ciprofloxacin HCl [Cipro] 500 mg PO BID #20 tablet 02/27/19 Ondansetron Odt [Zofran] 4 mg TL Q6H PRN #10 tablet 02/27/19 - Allergies Allergies/Adverse Reactions: Allergies Allergy/AdvReac Type Severity Reaction Status Date / Time droperidol [From Inapsine] Allergy Severe EPS Verified 02/27/19 15:11 ibuprofen [From Motrin] Allergy Severe Anaphylaxis Verified 02/27/19 15:11 peanut Allergy Severe Anaphylaxis Verified 02/27/19 15:11 shellfish derived Allergy Severe Anaphylaxis Verified 02/27/19 15:11 Xbrpfom-Vju-Arf Reductase Allergy Severe muscle pain Verified 02/27/19 15:11 Inhibitor amoxicillin [Amoxicillin] Allergy Intermediate Hives Verified 02/27/19 15:11 cefazolin Allergy Intermediate Hives Verified 02/27/19 15:11 Cephalosporins Allergy Intermediate Hives Verified 02/27/19 15:11 clindamycin Allergy Intermediate Hives Verified 02/27/19 15:11 cyclobenzaprine Allergy Intermediate Hives/night Verified 02/27/19 15:11 [Cyclobenzaprine] castaneda erythromycin base Allergy Intermediate Hives Verified 02/27/19 15:11 [Erythromycin Base] potassium clavulanate * Allergy Intermediate Hives Verified 02/27/19 15:11 [From Augmentin] ketorolac tromethamine * Allergy Anaphylaxis Verified 02/27/19 15:11 [From Toradol] adhesive tape AdvReac Severe BLISTERS Verified 02/27/19 15:11 duloxetine AdvReac Severe Suicidal Verified 02/27/19 15:11 etanercept [From Enbrel] AdvReac Severe Nausea/vomm Verified 02/27/19 15:11 iting/cramp s methotrexate AdvReac Severe N/V/Cramps Verified 02/27/19 15:11 NSAIDS (Non-Steroidal AdvReac Severe Anaphylaxis Verified 02/27/19 15:11 Anti-Inflamma prochlorperazine AdvReac Severe EPS Verified 02/27/19 15:11 pseudoephedrine AdvReac Severe Tachycardia Verified 02/27/19 15:11 sumatriptan AdvReac Severe Widened QRS Verified 02/27/19 15:11 doxycycline AdvReac Intermediate Hives Verified 02/27/19 15:11 gabapentin AdvReac Intermediate Gait Verified 02/27/19 15:11 disturbance latex AdvReac Intermediate Sensitivity Verified 02/27/19 15:11 morphine AdvReac Unknown Verified 02/27/19 15:11 prochlorperazine edisylate * AdvReac Unknown Verified 02/27/19 15:11 [From Compazine] prochlorperazine maleate * AdvReac Unknown Verified 02/27/19 15:11 [From Compazine] promethazine [From Phenergan] AdvReac Hallucinati Verified 02/27/19 15:11 ons - Social History Does the pt smoke?: Yes Smoking Status: Current every day smoker Does the pt drink ETOH?: Yes Does the pt have substance abuse?: No - Immunizations Immunizations are current?: Yes - POLST Patient has POLST: Yes POLST Status: DNR PD ED PE NORMAL - Vitals Vital signs reviewed: Yes - General General: Alert and oriented X 3, No acute distress, Well developed/nourished - Cardiac Cardiac: RRR, No murmur - Respiratory Respiratory: Clear bilaterally - Abdomen Abdomen: Soft, Other (There is an open wound with the wound VAC in place but a lot of fetid purulent material coming from under the wound VAC Tegaderm. There is slight redness at the edge of the skin. There is no abdominal distention no general tenderness nor percussion tenderness.) - Derm Derm: Normal color, Warm and dry - Neuro Neuro: Alert and oriented X 3, No motor deficit, Normal speech Results - Vitals Vitals: Vital Signs - 24 hr 02/27/19 15:07 Temperature 36.8 C Heart Rate 76 Respiratory 16 Rate Blood Pressure 118/72 O2 Saturation 97 Oxygen O2 Source [Without Activity] Room air O2 Source Room air - Labs Labs: Microbiology 02/27/19 15:36 Wound Culture - Preliminary Abdomen Laboratory Tests 02/27/19 02/27/19 02/27/19 15:45 15:45 15:45 WBC 9.0 RBC 4.48 Hgb 12.0 Hct 39.4 MCV 87.9 MCH 26.8 L MCHC 30.5 L RDW 20.0 H Plt Count 352 MPV 9.2 Neut # (Auto) 6.4 Lymph # (Auto) 1.4 L [place] # (Auto) 0.8 Eos # (Auto) 0.2 Baso # (Auto) 0.0 Absolute Nucleated RBC 0.00 Nucleated RBC % 0.0 Sodium 138 Potassium 4.1 Chloride 101 Carbon Dioxide 26 Anion Gap 11.0 BUN 13 Creatinine 0.6 Estimated GFR (MDRD) 101 Glucose 100 Lactic Acid 1.7 Calcium 9.2 Magnesium 1.6 L Total Bilirubin 0.4 AST 32 ALT 36 Alkaline Phosphatase 114 Total Protein 6.7 Albumin 3.3 Globulin 3.4 Albumin/Globulin Ratio 1.0 Lipase 35 - Rads (name of study) abd CT Radiology: Prelim report reviewed (Pocket of fluid deep to the surgical wound with some air visible in it. It extends into the abdominal anterior abdominal wall.), See rad report PD MEDICAL DECISION MAKING - ED course Complexity details: re-evaluated patient (The Pleur-evac dressing was removed and the Pleur-evac kept off as it was not draining adequately through this. I irrigated the wound that was present with sterile saline and suctioned it with a tonsil suction. This had had now to be layer of purulent material. A culture was obtained. It was then packed with 2 inch Kerlix and then wet-to-dry dressing over that.), considered differential (She previously had a deep abscess and fluid collection on her prior CT scan from the eighth. Presumably this has eroded through to the anterior wound and is now draining. This is actually a good thing for the wound however does have a deeper area of healing required now. Concern would be whether it needs even better drainage for the deeper portions. I will consult with surgery.), d/w patient, d/w data virtualization consultant (Talked with Dr. raymundo who is on-call for surgery and had performed her original surgery. He directed we irrigate the wound and pack it and have her follow-up in the surgical office tomorrow as planned for wound recheck.) Departure - Departure Disposition: 01 Home, Self Care Clinical Impression: Abscess re-check Condition: Stable Record reviewed to determine appropriate education?: Yes Follow-Up: Abdi Cervantes MD [Provider Admit Priv/Credential] - Prescriptions: Ciprofloxacin HCl [Cipro] 500 mg PO BID #20 tablet Ondansetron Odt [Zofran] 4 mg TL Q6H PRN #10 tablet PRN Reason: Nausea / Vomiting Comments: Keep the packing in the wound. Change the outer dressing if it gets full of pus. Ondansetron if needed for nausea. Cipro antibiotic twice daily. The culture we obtained today will result in a couple of days. Follow-up with the surgery center for wound check tomorrow as planned. Return as needed.
[2019-02-27 18:49] VITALS: BP 153/86
== END 2019-02-27 19:12 | disposition home or self-care (01) ==
LOC: ED 14:51
DX: T81.43XA Infection following a procedure, organ and space surgical site, initial encounter (principal); Y83.8 Other surgical procedures as the cause of abnormal reaction of the patient, or of later complication, without mention of misadventure at the time of the procedure; I10 Essential (primary) hypertension; E11.9 Type 2 diabetes mellitus without complications; Z79.84 Long term (current) use of oral hypoglycemic drugs; Z79.82 Long term (current) use of aspirin; F17.200 Nicotine dependence, unspecified, uncomplicated; Z66 Do not resuscitate
CPT/HCPCS: 36415; 71045; 74177; 80053; 83605; 83690; 83735; 85025; 87040; 87070; 87077; 87181; 87205; 96365; 96375; 96376; 99284; J1170; Q9967

== ENCOUNTER 2019-03-25 11:02 | Outpatient (CLI) | payer MEDICARE, MEDICAID | END 2019-03-25 11:03 | disposition home or self-care (01) | LOC: DI 11:02 | PROVIDERS: ATTEND Physician Assistant | DX: Z53.9 Procedure and treatment not carried out, unspecified reason (principal) ==

== ENCOUNTER 2019-03-28 14:05 | Outpatient (CLI) | payer MEDICARE, MEDICAID ==
--- NOTE | 2019-03-28 16:17 | XRAY Report ---
Reason: SHOULDER PAIN, OSTEOARTHRITIS OF RT HIP JOINT Procedure Date: 03/28/2019 Accession Number: [id number] / [id number] Procedure: XR - Hip w/Pelvis 2-3V RT CPT Code: FULL RESULT: EXAM: RIGHT HIP RADIOGRAPHY EXAM DATE: 03/28/2019 02:54 PM. CLINICAL HISTORY: Shoulder pain, osteoarthritis of right hip joint. COMPARISON: HIP 2 VIEW RT 03/08/2014 5:35 PM. TECHNIQUE: 3 views. FINDINGS: Bones: Normal. No fractures or bone lesion. Joints: Moderate bilateral narrowing of the femoral acetabular joints appears similar to prior. There is no dislocation. Sacroiliac joints are congruent. Soft Tissues: Normal. No soft tissue swelling. IMPRESSION: Stable appearance of degenerative changes of the right hip. RADIA
--- NOTE | 2019-03-29 09:24 | XRAY Report ---
Reason: SHOULDER PAIN Procedure Date: 03/28/2019 Accession Number: [id number] / [id number] Procedure: XR - Shoulder 3 View RT CPT Code: FULL RESULT: EXAM: RIGHT SHOULDER RADIOGRAPHY EXAM DATE: 03/28/2019 02:54 PM. CLINICAL HISTORY: Shoulder pain. COMPARISON: SHOULDER 3 VIEW RT 07/07/2017 8:15 AM. TECHNIQUE: 3 views. FINDINGS: Bones: Bone anchor screws related to rotator cuff repair are once again demonstrated. No fracture or bone lesion. Joints: The acromioclavicular joint demonstrates degenerative changes with AC interval spacing potentially related to prior surgery. Calcifications in the region of the rotator cuff are noted in the setting of prior surgical repair. The humeral head is appropriately located, somewhat low riding in the setting of prior surgery. Soft tissues: The visualized hemithorax is unremarkable. No soft tissue swelling. IMPRESSION: Overall stable appearance with prior rotator cuff with interval increase in prominence of calcifications in the rotator cuff region, calcific tendinitis. RADIA
== END 2019-03-28 14:06 | disposition home or self-care (01) ==
LOC: DI 14:05
PROVIDERS: ATTEND Physician Assistant
DX: M16.11 Unilateral primary osteoarthritis, right hip (principal); M19.011 Primary osteoarthritis, right shoulder; M75.31 Calcific tendinitis of right shoulder

== ENCOUNTER 2019-04-07 11:38 | Outpatient (CLI) | payer MEDICARE, MEDICAID ==
[2019-04-07] MEDS ORDERED: IOVERSOL 320 50 ML VIAL ONE (11:59)
[2019-04-07] MEDS ORDERED: IOVERSOL 320 100 ML VIAL IVP ONE ×2 (11:59→13:04)
[2019-04-07] MEDS ORDERED: IOVERSOL 320 50 ML VIAL PO ONE (13:04)
--- NOTE | 2019-04-07 17:20 | CT Report ---
Reason: ABD PAIN, NAUSEA AND VOMITING Procedure Date: 04/07/2019 Accession Number: [id number] / [id number] Procedure: CT - Abdomen/Pelvis W CPT Code: FULL RESULT: EXAM: CT ABDOMEN AND PELVIS EXAM DATE: 04/07/2019 01:03 PM. CLINICAL HISTORY: ABD PAIN, NAUSEA AND VOMITING. Follow-up abnormal CT. COMPARISONS: ABDOMEN/PELVIS W/ 02/27/2019 4:19 PM ABDOMEN/PELVIS W/ 02/20/2019 4:06 PM ABDOMEN/PELVIS W/ 12/20/2018 10:59 AM. TECHNIQUE: Routine helical CT imaging was performed through the abdomen and pelvis. IV contrast: OPTI 320 100ML. Enteric contrast: No. Reconstructions: Coronal and sagittal. In accordance with CT protocol optimization, one or more of the following dose reduction techniques were utilized for this exam: automated exposure control, adjustment of mA and/or KV based on patient size, or use of iterative reconstructive technique. FINDINGS: Lung Bases: No effusion. Gallbladder/Bile Ducts: Post cholecystectomy Liver, spleen, pancreas, adrenal glands, kidneys: No acute findings or significant interval change. 2 cm peripheral calcified nodule adjacent to the liver , possible fat necrosis as before. Peritoneal Cavity/Bowel: Persistent anterior paramedian left abdominal mixed fluid and air collection extending from the abdomen to approximately the skin surface at the level of the umbilicus measuring maximally 7.5 cm anterior-posterior by 6.5 cm right left by 8 cm vertical inseparable from adjacent small bowel. Small air bubbles are seen subcutaneous soft tissues. The surrounding small bowel is opacified with contrast demonstrating bowel wall thickening, /41 through 44. Although the contrast column is narrowed at the level of the collection no definite contrast is seen extending into the collection. The collection is certainly no smaller than it was 02/20/2019 and visually appears slightly larger. Pelvic Organs: Unchanged Vasculature: No aneurysms or other significant abnormality. Bones: No significant abnormality. IMPRESSION: An irregular circumscribed fluid and air collection inseparable from adjacent small bowel remains in the anterior abdomen extending across the abdominal wall to the skin surface at approximately the umbilicus. No oral contrast is seen within the collection. Again the differential is between an extra enteric collection versus collection containing or connected to small bowel with potential fistula to the skin surface. The exam is otherwise stable compared with 02/20/2019. RADIA
== END 2019-04-07 11:39 | disposition home or self-care (01) ==
LOC: DI 11:38
PROVIDERS: ATTEND Surgery
DX: R10.9 Unspecified abdominal pain (principal); R11.2 Nausea with vomiting, unspecified
CPT/HCPCS: 74177; Q9967

== ENCOUNTER 2019-04-12 03:50 | Outpatient (CLI) | payer MEDICARE, MEDICAID | END 2019-04-12 03:51 | disposition critical access hospital (66) | LOC: EMS 03:50 | PROVIDERS: ATTEND Surgery | DX: R11.10 Vomiting, unspecified (principal); R10.9 Unspecified abdominal pain | CPT/HCPCS: A0425; A0429 ==

== ENCOUNTER 2019-04-12 04:02 | Emergency (ER) | payer MEDICARE, MEDICAID ==
--- NOTE | 2019-04-12 04:13 | ED Physician Documentation ---
<Dariana Driver - Last Filed: 04/12/19 06:43> History of Present Illness - Stated complaint Stated Complaint: POST OP COMPLICATION - History obtained from History obtained from: Patient - History of Present Illness Timing: Prior to arrival - Additonal information Additional information: This is a 63-year-old woman who has had a complicated abdominal surgical history with prior bowel obstructions who presents tonight with complaints that yesterday when she was at wound care she did not feel all that well and then she started developing pain in her lower abdomen when in the bathroom tonight vomited 1000 cc and then vomited another 503 100. The pain was excruciating so she called the ambulance and was brought in by ambulance. She says they did not do anything for her in the ambulance except give HER-2 of her Zofran tablets. She currently has an open wound on her abdomen from a ventral hernia repair that in November that was left open to heal by secondary intention. It is continually draining "foul stuff" and she is being treated for it at the wound care clinic. They just took the wound VAC off this week. She has a history of severe and IBS and typically has 10-15 liquid stools a day but today she has not had a bowel movement at all. She has not had much of an appetite. Denies fever. Patient just had a CT scan done of her abdomen 5 days ago as a follow-up from an admission in February with a small bowel obstruction. She did not undergo surgery at that time was treated with NG decompression. Patient also has electrolyte imbalance of magnesium and goes to the [facility] clinic weekly for infusions of magnesium and iron. 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 She is unable to drive. Review of Systems Constitutional: denies: Fever Throat: denies: Sore throat Cardiac: denies: Palpitations Respiratory: denies: Dyspnea, Cough GI: reports: Abdominal Pain, Nausea, Vomiting, Diarrhea (Chronic), Other (No stool today) : denies: Dysuria Skin: reports: Other (Open wound on the abdominal wall) Neurologic: denies: Syncope Endocrine: reports: Other (She is a diabetic) PD PAST MEDICAL HISTORY - Past Medical History Cardiovascular: Congestive heart failure, Hypertension Respiratory: Other Neuro: None Endocrine/Autoimmune: Type 2 diabetes, Other GI: GERD, Colon polyps, Chronic diarrhea, Other SENIOR BIOINFORMATICS SPECIALIST: Ovarian cysts, Other : Incontinence HEENT: Chronic vision loss, Chronic sinusitis Psych: Depression, Anxiety, Obsessive compulsive disorder, Other Musculoskeletal: Osteoarthritis, Other Derm: Other - Past Surgical History Past Surgical History: Yes General: Cholecystectomy, Appendectomy, Bowel surgery, Other Ortho: Knee replacement /SENIOR BIOINFORMATICS SPECIALIST: 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, Oophrectomy Cardiovascular: Cardiac catheterization HEENT: Tonsil/Adenoidectomy - Present Medications Home Medications: Ambulatory Orders Medication Instructions Recorded Confirmed Aspirin [Aspirin EC] 650 mg PO 0800,1200,1600,2000 05/29/13 03/04/19 Metoprolol Tartrate 50 mg PO BID 05/29/13 03/04/19 Potassium Chloride 20 meq PO DAILY PRN 05/29/13 03/04/19 Glimepiride 1 mg PO QDBREAKFAST 03/03/17 03/04/19 metFORMIN [Glucophage] 1,000 mg PO BID 03/03/17 03/04/19 Fluticasone [Flonase] 1 sprays MATT DAILY 11/26/17 03/04/19 Propylene Glycol/Peg 400/Pf 1 drops EACHEYE QID PRN 11/26/17 03/04/19 [Systane 0.3-0.4% Eye Drop] Timolol 0.5% Ophth Drops [Timoptic 1 drops EACHEYE BID 11/26/17 03/04/19 0.5% Ophth Drops] Esomeprazole Magnesium [Nexium] 40 mg PO DAILY 05/03/18 03/04/19 Saccharomyces Boulardii [Florastor] 250 mg PO DAILY 05/03/18 03/04/19 Cetirizine [ZyrTEC] 10 mg PO DAILY PM 09/06/18 03/04/19 predniSONE [Deltasone] 17.5 mg PO DAILY 09/06/18 03/04/19 Calcitonin [Fortical] 1 sprays MATT DAILY 10/25/18 03/04/19 Bupropion HCl [Bupropion HCl Sr] 150 mg PO BID 12/21/18 03/04/19 Chlorhexidine Gluconate 15 ml MM DAILY 12/21/18 03/04/19 Ondansetron Odt [Zofran Odt] 4 mg PO TID 12/21/18 03/04/19 Nystatin [Nystop] 1 applic TOP QID PRN #1 bottle 12/24/18 03/04/19 Fluconazole 200 mg PO DAILY 02/21/19 03/04/19 Ciprofloxacin HCl [Cipro] 500 mg PO BID #20 tablet 02/27/19 03/04/19 Ondansetron Odt [Zofran] 4 mg TL Q6H PRN #10 tablet 02/27/19 03/04/19 - Allergies Allergies/Adverse Reactions: Allergies Allergy/AdvReac Type Severity Reaction Status Date / Time droperidol [From Inapsine] Allergy Severe EPS Verified 04/12/19 04:13 ibuprofen [From Motrin] Allergy Severe Anaphylaxis Verified 04/12/19 04:13 peanut Allergy Severe Anaphylaxis Verified 04/12/19 04:13 shellfish derived Allergy Severe Anaphylaxis Verified 04/12/19 04:13 [id number] Reductase Allergy Severe muscle pain Verified 04/12/19 04:13 Inhibitor amoxicillin [Amoxicillin] Allergy Intermediate Hives Verified 04/12/19 04:13 cefazolin Allergy Intermediate Hives Verified 04/12/19 04:13 Cephalosporins Allergy Intermediate Hives Verified 04/12/19 04:13 clindamycin Allergy Intermediate Hives Verified 04/12/19 04:13 cyclobenzaprine Allergy Intermediate Hives/night Verified 04/12/19 04:13 [Cyclobenzaprine] castaneda erythromycin base Allergy Intermediate Hives Verified 04/12/19 04:13 [Erythromycin Base] potassium clavulanate * Allergy Intermediate Hives Verified 04/12/19 04:13 [From Augmentin] ketorolac tromethamine * Allergy Anaphylaxis Verified 04/12/19 04:13 [From Toradol] adhesive tape AdvReac Severe BLISTERS Verified 04/12/19 04:13 duloxetine AdvReac Severe Suicidal Verified 04/12/19 04:13 etanercept [From Enbrel] AdvReac Severe Nausea/vomm Verified 04/12/19 04:13 iting/cramp s methotrexate AdvReac Severe N/V/Cramps Verified 04/12/19 04:13 NSAIDS (Non-Steroidal AdvReac Severe Anaphylaxis Verified 04/12/19 04:13 Anti-Inflamma prochlorperazine AdvReac Severe EPS Verified 04/12/19 04:13 pseudoephedrine AdvReac Severe Tachycardia Verified 04/12/19 04:13 sumatriptan AdvReac Severe Widened QRS Verified 04/12/19 04:13 doxycycline AdvReac Intermediate Hives Verified 04/12/19 04:13 gabapentin AdvReac Intermediate Gait Verified 04/12/19 04:13 disturbance latex AdvReac Intermediate Sensitivity Verified 04/12/19 04:13 morphine AdvReac Unknown Verified 04/12/19 04:13 prochlorperazine edisylate * AdvReac Unknown Verified 04/12/19 04:13 [From Compazine] prochlorperazine maleate * AdvReac Unknown Verified 04/12/19 04:13 [From Compazine] promethazine [From Phenergan] AdvReac Hallucinati Verified 04/12/19 04:13 ons - Social History Does the pt smoke?: Yes Smoking Status: Current every day smoker Does the pt drink ETOH?: Yes Does the pt have substance abuse?: No - Immunizations Immunizations are current?: Yes - POLST Patient has POLST: Yes POLST Status: DNR PD ED PE NORMAL - Vitals Vital signs reviewed: Yes - General General: Alert and oriented X 3, Well developed/nourished, Other (She is occasionally clutches at her lower abdomen and grimacing in pain) - HEENT HEENT: Atraumatic, PERRL, Other (Dry mucous membranes. No scleral icterus.) - Neck Neck: No adenopathy - Cardiac Cardiac: RRR, No murmur, Strong equal pulses - Respiratory Respiratory: No respiratory distress, Clear bilaterally - Abdomen Abdomen: Soft, Other (Hypoactive bowel tones. There is a Tegaderm over inIn her mid abdomen below the umbilicus. There is a little staining on the most inferior aspect of this. The skin around the Tegaderm does not appear to be inflamed. 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 She had 8 mg of Zofran ODT in route by the ambulance. Her white blood cell count is normal potassium was low at 3.2. Have added a magnesium level on because of her history of my hypomagnesemia. Lipase is normal her lactate was normal. I did discuss with Dr. Underwood who is on-call for surgery he recommended that we repeat the CAT scan to make sure that she does not have an acute surgical issue. I believe will but get better imaging with IV and oral contrast. When I went and discussed with her she was sitting with an emesis bag and feels like her stomach is expanding even if she sitting here and the pain is starting to return. I was hesitant to give her more nausea medications because she has extensive allergies some of which she has required intubation and Zofran is the only antiemetic that she knows is safe for her to use so I elected to go ahead and put an NG in evacuate her stomach contents and then use the NG to place the oral contrast. Care will be turned over to Dr. Colunga at 0700 for follow-up on the CT scan and final disposition. Departure - Departure Disposition: 02 Transfer Acute Care Hosp Clinical Impression: Small bowel obstruction Condition: Stable <Abdi Colunga - Last Filed: 04/12/19 16:07> Results - Vitals Vitals: Vital Signs - 24 hr 04/12/19 04/12/19 04/12/19 04:04 06:13 07:29 Temperature 98.3 C H Heart Rate 89 71 89 Respiratory 14 14 20 Rate Blood Pressure 180/88 H 161/88 H 151/106 H O2 Saturation 96 96 96 04/12/19 04/12/19 04/12/19 09:01 10:00 11:15 Temperature 37.0 C Heart Rate 79 80 87 Respiratory 16 18 22 Rate Blood Pressure 117/97 H 140/98 H 160/95 H O2 Saturation 99 95 98 04/12/19 04/12/19 04/12/19 12:00 12:30 13:00 Temperature Heart Rate 99 94 94 Respiratory 18 18 18 Rate Blood Pressure 164/129 H 169/93 H 159/140 H O2 Saturation 96 97 97 04/12/19 04/12/19 13:24 15:08 Temperature 36.9 C Heart Rate 89 66 Respiratory 18 20 Rate Blood Pressure 104/73 146/79 H O2 Saturation 96 97 Oxygen O2 Source [Without Activity] Room air O2 Source Room air - Labs Labs: Laboratory Tests 04/12/19 04/12/19 04/12/19 05:38 05:38 05:38 WBC 9.3 RBC 4.84 Hgb 13.2 Hct 42.6 MCV 88.0 MCH 27.3 MCHC 31.0 L RDW 19.9 H Plt Count 387 MPV 8.8 Neut # (Auto) 7.5 H Lymph # (Auto) 1.0 L Kay # (Auto) 0.6 Eos # (Auto) 0.1 Baso # (Auto) 0.0 Absolute Nucleated RBC 0.00 Nucleated RBC % 0.0 Sodium 140 Potassium 3.2 L Chloride 102 Carbon Dioxide 27 Anion Gap 11.0 BUN 16 Creatinine 0.4 Estimated GFR (MDRD) 162 Glucose 137 H Lactic Acid 1.2 Calcium 9.4 Magnesium Total Bilirubin 0.9 AST 14 ALT 13 Alkaline Phosphatase 111 Total Protein 6.8 Albumin 3.8 Globulin 3.0 Albumin/Globulin Ratio 1.3 Lipase 39 04/12/19 05:38 WBC RBC Hgb Hct MCV MCH MCHC RDW Plt Count MPV Neut # (Auto) Lymph # (Auto) Kay # (Auto) Eos # (Auto) Baso # (Auto) Absolute Nucleated RBC Nucleated RBC % Sodium Potassium Chloride Carbon Dioxide Anion Gap BUN Creatinine Estimated GFR (MDRD) Glucose Lactic Acid Calcium Magnesium 1.3 L Total Bilirubin AST ALT Alkaline Phosphatase Total Protein Albumin Globulin Albumin/Globulin Ratio Lipase PD MEDICAL DECISION MAKING - ED course ED course: 63-year-old female with a complicated medical history including a incarcerated ventral hernia repaired this summer and development of an abscess through the hernia repair with what 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 Today she has developed small bowel obstruction resulted on CT. The abscess appears to communicate with the intestine and our surgeon here Dr. Underwood is consulted in the case and recommends we transfer the patient to a higher level center able to care for this complicated problem. It does appear the mesh is infected and the patient has a bowel obstruction. Dr. Isabel Pyle, surgeon at [facility], is consulted in the case and graciously accepts the patient in transfer. She has an NG tube in place and IV in place she is receiving maintenance fluid and Zofran and pain medication as needed. There is some delay for her transfer as we are awaiting a bed.
[2019-04-12] MEDS ORDERED: HYDROmorphone 1 MG/ML CARPUJECT IVP STA ×4 (04:55→16:23)
[2019-04-12] MEDS ORDERED: SODIUM CHLORIDE 0.9% 500 ML IV ONE (04:55)
[2019-04-12 05:46] LABS: BASOPHILS % (AUTO) 0.4 %; EOSINOPHILS # (AUTO) 0.1 10^3/uL (0.0-0.7); EOSINOPHILS % (AUTO) 1.3 %; HGB - HEMOGLOBIN 13.2 g/dL (12.0-16.0); LYMPHOCYTES % (AUTO) 10.9 %; MEAN CORPUSCULAR HEMOGLOBIN 27.3 pg (27.0-31.0); MEAN PLATELET VOLUME 8.8 fL (7.9-10.8); MONOCYTES # (AUTO) 0.6 10^3/uL (0.0-1.0); MONOCYTES % (AUTO) 6.1 %; NEUTROPHILS # (AUTO) 7.5 10^3/uL (1.5-6.6); NEUTROPHILS % (AUTO) 80.8 %; PLT - PLATELET COUNT 387 10^3/uL (130-450); RED BLOOD COUNT 4.84 10^6/uL (4.20-5.40); RED CELL DISTRIBUTION WIDTH 19.9 % (12.0-15.0); WHITE BLOOD COUNT 9.3 x10^3/uL (4.8-10.8)
[2019-04-12 05:59] LABS: ALBUMIN 3.8 g/dL (3.2-5.5); ALBUMIN/GLOBULIN RATIO 1.3 (1.0-2.2); BILIRUBIN,TOTAL 0.9 mg/dL (0.2-1.0); CALCIUM 9.4 mg/dL (8.5-10.3); CREATININE 0.4 mg/dL (0.4-1.0); TOTAL PROTEIN 6.8 g/dL (6.7-8.2)
[2019-04-12] MEDS ORDERED: POTASSIUM CHLOR 20 MEQ/100 ML 20 MEQ/100 ML BAG IV ONE (06:34)
[2019-04-12] MEDS ORDERED: IOVERSOL 320 50 ML VIAL ONE (06:59)
[2019-04-12] MEDS ORDERED: IOVERSOL 320 100 ML VIAL IVP ONE ×2 (06:59→15:09)
[2019-04-12] MEDS ORDERED: ONDANSETRON 4 MG/2 ML VIAL IVP STA ×3 (08:02→16:23)
--- NOTE | 2019-04-12 09:27 | CT Report ---
Reason: abd pain; vomiting Procedure Date: 04/12/2019 Accession Number: [id number] / [id number] Procedure: CT - Abdomen/Pelvis W CPT Code: FULL RESULT: EXAM: CT ABDOMEN AND PELVIS EXAM DATE: 04/12/2019 08:52 AM. CLINICAL HISTORY: Abd pain; vomiting. COMPARISONS: ABDOMEN/PELVIS W/ 04/07/2019 12:56 PM ABDOMEN/PELVIS W/ 02/20/2019 4:06 PM LUMBAR SPINE 2 VIEW 11/04/2018 5:06 PM. TECHNIQUE: Routine helical CT imaging was performed through the abdomen and pelvis. IV contrast: 100 cc Optiray 320. Enteric contrast: Positive. Reconstructions: Coronal and sagittal. In accordance with CT protocol optimization, one or more of the following dose reduction techniques were utilized for this exam: automated exposure control, adjustment of mA and/or KV based on patient size, or use of iterative reconstructive technique. FINDINGS: Lung Bases: Unremarkable. Liver: Stable 21 x 16 mm peripherally calcified nodule adjacent to the medial right hepatic lobe with stable underlying 20 mm cystic-appearing hypodensity (3/36). Gallbladder/Bile Ducts: Cholecystectomy. No ductal enlargement. Spleen: Normal. Pancreas: Normal. Adrenal Glands: Normal. Kidneys: No convincing solid mass. No hydronephrosis. Probable punctate nonobstructing midpole left renal calculus. Peritoneal Cavity/Bowel: No free air or free fluid. Persistent anterior paramedian left abdominal fluid/gas collection measuring up to approximately 70 x 62 mm extending from the abdomen to the skin surface as before, stable to slightly decreased in size from prior. There are now multiple abnormally dilated loops of nonopacified mid abdominal small bowel with apparent caliber transition near the fluid collection, appearance suggesting mechanical obstruction. Pelvic Organs: Uterus is absent. Minimally distended urinary bladder unremarkable. Vasculature: Scattered aortoiliac atheromatous calcification. No aneurysm. Bones: No acute fracture or suspicious bony lesion. Stable chronic compression deformity T12. Other: None. IMPRESSION: 1. Persistent anterior abdominal abscess now with evidence of associated small bowel obstruction. 2. Other findings as noted above. [facility]
[2019-04-12] MEDS ORDERED: LORazepam 2 MG/ML VIAL IVP STA (12:46)
[2019-04-12] MEDS ORDERED: ACETAMINOPHEN 1,000 MG/100 ML 100 ML IV STA (12:47)
[2019-04-12] MEDS ORDERED: IOVERSOL 320 50 ML VIAL PO ONE (15:09)
[2019-04-12 16:07] VITALS: BP 147/113
== END 2019-04-12 16:31 | disposition short-term general hospital (02) ==
LOC: EDUNIT# → ED 04:02
DX: K91.30 Postprocedural intestinal obstruction, unspecified as to partial versus complete (principal); E11.9 Type 2 diabetes mellitus without complications; I10 Essential (primary) hypertension; Z79.84 Long term (current) use of oral hypoglycemic drugs; F17.200 Nicotine dependence, unspecified, uncomplicated; Z66 Do not resuscitate
CPT/HCPCS: 36415; 74177; 80053; 83605; 83690; 83735; 85025; 96361; 96365; 96375; 96376; 99284; 99285; J0131; J1170; J2060; Q9967

== ENCOUNTER 2019-07-08 11:37 | Outpatient (CLI) | payer MEDICARE ==
[2019-07-08 12:03] LABS: CRP - C-REACTIVE PROTEIN 5.8 mg/dL (0-1.0)
== END 2019-07-08 11:38 | disposition home or self-care (01) ==
LOC: LAB 11:37
PROVIDERS: ATTEND Physician Assistant
DX: M79.10 Myalgia, unspecified site (principal)
CPT/HCPCS: 36415; 82550; 85651; 86140

== ENCOUNTER 2019-07-14 13:44 | Outpatient (CLI) | payer MEDICARE | END 2019-07-14 13:45 | disposition critical access hospital (66) | LOC: EMS 13:44 | PROVIDERS: ATTEND Surgery | DX: R07.81 Pleurodynia (principal); R51 Headache; R11.2 Nausea with vomiting, unspecified | CPT/HCPCS: A0425; A0429 ==

== ENCOUNTER 2019-07-14 13:54 | Emergency (ER) | payer MEDICARE ==
[2019-07-14] MEDS ORDERED: DEXAMETHASONE 10 MG/ML VIAL IVP STA (14:36)
[2019-07-14] MEDS ORDERED: HYDROmorphone 1 MG/ML CARPUJECT IVP STA ×2 (14:36→16:02)
--- NOTE | 2019-07-14 14:39 | ED Physician Documentation ---
History of Present Illness - Stated complaint Stated Complaint: HEADACHE - Chief complaint Chief Complaint: General - History obtained from History obtained from: Patient - History of Present Illness Timing: Other (This is a 64-year-old woman who presents by ambulance for left- sided chest pain and headache. She has a history of longstanding tobacco use, diabetes, irritable bowel syndrome, anxiety and depression, idiopathic brainstem swelling and heart failure. She had a gradual onset frontal and posterior headache starting 10 days ago associated with light sensitivity. She does have a history of migraines, but says that since her hysterectomy many years ago they have been very few and far between. Also without specific injury she developed sharp life left-sided pleuritic chest pain on that same day. There is no associated cough. She vacillates as to whether or not she is short of breath, says maybe she has been just due to the pain. She does have some chronic shortness of breath due to the smoking. No increased cough. When she is coughing or taking a deep breath the ribs hurt more, but otherwise the head hurts more than the ribs. No associated fevers. She does have more pedal edema than normal for her, but that is an exacerbation of a chronic issue.) Review of Systems Ten Systems: 10 systems reviewed and negative Constitutional: denies: Fever, Chills Ears: denies: Ear pain, Drainage/discharge Nose: reports: Rhinorrhea / runny nose, Congestion Throat: denies: Dental pain / toothache, Sore throat Cardiac: denies: Chest pain / pressure, Palpitations Respiratory: denies: Dyspnea, Cough PD PAST MEDICAL HISTORY - Past Medical History Past Medical History: Yes Cardiovascular: Congestive heart failure, Hypertension Respiratory: Other Neuro: None Endocrine/Autoimmune: Type 2 diabetes, Other GI: GERD, Colon polyps, Chronic diarrhea, Other PLUGMAN: Ovarian cysts, Other : Incontinence HEENT: Chronic vision loss, Chronic sinusitis Psych: Depression, Anxiety, Obsessive compulsive disorder, Other Musculoskeletal: Osteoarthritis, Other Derm: Other - Past Surgical History Past Surgical History: Yes General: Cholecystectomy, Appendectomy, Bowel surgery, Other Ortho: Knee replacement /PLUGMAN: 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, Oophrectomy Cardiovascular: Cardiac catheterization HEENT: Tonsil/Adenoidectomy - Present Medications Home Medications: Ambulatory Orders Medication Instructions Recorded Confirmed Aspirin [Aspirin EC] 650 mg PO 0800,1200,1600,199905/29/13 05/27/19 Metoprolol Tartrate 50 mg PO BID 05/29/13 05/27/19 Potassium Chloride 20 meq PO DAILY PRN 05/29/13 05/27/19 Glimepiride 1 mg PO QDBREAKFAST 03/03/17 05/27/19 metFORMIN [Glucophage] 1,000 mg PO BID 03/03/17 05/27/19 Fluticasone [Flonase] 1 sprays MATT DAILY 11/26/17 05/27/19 Propylene Glycol/Peg 400/Pf 1 drops EACHEYE QID PRN 11/26/17 05/27/19 [Systane 0.3-0.4% Eye Drop] Timolol 0.5% Ophth Drops [Timoptic 1 drops EACHEYE BID 11/26/17 05/27/19 0.5% Ophth Drops] Esomeprazole Magnesium [Nexium] 40 mg PO DAILY 05/03/18 05/27/19 Saccharomyces Boulardii [Florastor] 250 mg PO DAILY 05/03/18 05/27/19 Cetirizine [ZyrTEC] 10 mg PO DAILY PM 09/06/18 05/27/19 predniSONE [Deltasone] 17.5 mg PO DAILY 09/06/18 05/27/19 Calcitonin [Fortical] 1 sprays MATT DAILY 10/25/18 05/27/19 Chlorhexidine Gluconate 15 ml MM DAILY 12/21/18 05/27/19 Ondansetron Odt [Zofran Odt] 4 mg PO TID 12/21/18 05/27/19 buPROPion HCL [Bupropion HCl Sr] 150 mg PO BID 12/21/18 05/27/19 Nystatin [Nystop] 1 applic TOP QID PRN #1 bottle 12/24/18 05/27/19 Fluconazole 200 mg PO DAILY 02/21/19 05/27/19 Ciprofloxacin HCl [Cipro] 500 mg PO BID #20 tablet 02/27/19 05/27/19 Ondansetron Odt [Zofran] 4 mg TL Q6H PRN #10 tablet 02/27/19 05/27/19 - Allergies Allergies/Adverse Reactions: Allergies Allergy/AdvReac Type Severity Reaction Status Date / Time droperidol [From Inapsine] Allergy Severe EPS Verified 07/14/19 14:05 ibuprofen [From Motrin] Allergy Severe Anaphylaxis Verified 07/14/19 14:05 peanut Allergy Severe Anaphylaxis Verified 07/14/19 14:05 shellfish derived Allergy Severe Anaphylaxis Verified 07/14/19 14:05 Ijgmkup-[id number]-Vcj Reductase Allergy Severe muscle pain Verified 07/14/19 14:05 Inhibitor amoxicillin [Amoxicillin] Allergy Intermediate Hives Verified 07/14/19 14:05 cefazolin Allergy Intermediate Hives Verified 07/14/19 14:05 Cephalosporins Allergy Intermediate Hives Verified 07/14/19 14:05 clindamycin Allergy Intermediate Hives Verified 07/14/19 14:05 cyclobenzaprine Allergy Intermediate Hives/night Verified 07/14/19 14:05 [Cyclobenzaprine] castaneda erythromycin base Allergy Intermediate Hives Verified 07/14/19 14:05 [Erythromycin Base] potassium clavulanate * Allergy Intermediate Hives Verified 07/14/19 14:05 [From Augmentin] ketorolac tromethamine * Allergy Anaphylaxis Verified 07/14/19 14:05 [From Toradol] adhesive tape AdvReac Severe BLISTERS Verified 07/14/19 14:05 duloxetine AdvReac Severe Suicidal Verified 07/14/19 14:05 etanercept [From Enbrel] AdvReac Severe Nausea/vomm Verified 07/14/19 14:05 iting/cramp s methotrexate AdvReac Severe N/V/Cramps Verified 07/14/19 14:05 NSAIDS (Non-Steroidal AdvReac Severe Anaphylaxis Verified 07/14/19 14:05 Anti-Inflamma prochlorperazine AdvReac Severe EPS Verified 07/14/19 14:05 pseudoephedrine AdvReac Severe Tachycardia Verified 07/14/19 14:05 sumatriptan AdvReac Severe Widened QRS Verified 07/14/19 14:05 doxycycline AdvReac Intermediate Hives Verified 07/14/19 14:05 gabapentin AdvReac Intermediate Gait Verified 07/14/19 14:05 disturbance latex AdvReac Intermediate Sensitivity Verified 07/14/19 14:05 morphine AdvReac Unknown Verified 07/14/19 14:05 prochlorperazine edisylate * AdvReac Unknown Verified 07/14/19 14:05 [From Compazine] prochlorperazine maleate * AdvReac Unknown Verified 07/14/19 14:05 [From Compazine] promethazine [From Phenergan] AdvReac Hallucinati Verified 07/14/19 14:05 ons - Social History Does the pt smoke?: Yes Smoking Status: Current every day smoker Does the pt drink ETOH?: Yes Does the pt have substance abuse?: No - Immunizations Immunizations are current?: Yes - POLST Patient has POLST: Yes POLST Status: DNR PD ED PE NORMAL - Vitals Vital signs reviewed: Yes - General General: Alert and oriented X 3, No acute distress - HEENT HEENT: EOMI, Other (She appears photophobic, is wearing sunglasses, the right pupil is slightly smaller than the left 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) - Neck Neck: Supple, no meningeal sign, No bony TTP - Cardiac Cardiac: RRR, No murmur - Respiratory Respiratory: No respiratory distress, Clear bilaterally - Abdomen Abdomen: Non tender - Extremities Extremities: Other (Mild to moderate bilateral pitting pedal edema without asymmetry or cellulitis changes) - Neuro Neuro: Alert and oriented X 3, Normal speech Results - Vitals Vitals: Vital Signs - 24 hr 07/14/19 07/14/19 07/14/19 14:05 16:07 17:25 Temperature 36.8 C 37.0 C 36.9 C Heart Rate 70 69 75 Respiratory 22 16 16 Rate Blood Pressure 150/95 H 159/93 H 171/83 H O2 Saturation 99 96 93 Oxygen O2 Source [] Room air O2 Source Room air - EKG (time done) 1447 Rate: Rate (enter#) (71) Rhythm: NSR [place]: Normal QRS: Low voltage Ischemia: Non specific changes. No: ST elevation c/w ischemia, ST depression Computer interpretation: Agree with computer - Labs Labs: Laboratory Tests 07/14/19 07/14/19 07/14/19 15:00 15:00 15:00 WBC 8.1 RBC 4.74 Hgb 12.7 Hct 40.0 MCV 84.4 MCH 26.8 L MCHC 31.8 L RDW 16.7 H Plt Count 359 MPV 8.8 Neut # (Auto) 5.8 Lymph # (Auto) 1.4 L [place] # (Auto) 0.7 Eos # (Auto) 0.2 Baso # (Auto) 0.0 Absolute Nucleated RBC 0.00 Nucleated RBC % 0.0 Sodium 141 Potassium 3.3 L Chloride 97 L Carbon Dioxide 30 Anion Gap 14.0 H BUN 9 Creatinine 0.5 Estimated GFR (MDRD) 125 Glucose 97 Calcium 8.8 Magnesium Total Bilirubin 0.5 AST 16 ALT 17 Alkaline Phosphatase 120 Troponin I High Sens 3.5 Total Protein 6.9 Albumin 3.7 Globulin 3.2 Albumin/Globulin Ratio 1.2 Lipase 50 07/14/19 15:00 WBC RBC Hgb Hct MCV MCH MCHC RDW Plt Count MPV Neut # (Auto) Lymph # (Auto) [place] # (Auto) Eos # (Auto) Baso # (Auto) Absolute Nucleated RBC Nucleated RBC % Sodium Potassium Chloride Carbon Dioxide Anion Gap BUN Creatinine Estimated GFR (MDRD) Glucose Calcium Magnesium 1.0 L* Total Bilirubin AST ALT Alkaline Phosphatase Troponin I High Sens Total Protein Albumin Globulin Albumin/Globulin Ratio Lipase - Rads (name of study) CT Head Radiology: EMP read contemporaneously (normal) CT PA Radiology: EMP read contemporaneously (Emphysema, 10 x 8 mm lateral right upper lobe nodule needing further work-up, no PE.) PD MEDICAL DECISION MAKING - ED course ED course: 64-year-old woman with headache and chest pain, the chest pain is atypical and pleuritic. She is morbidly obese and I considered her high risk for PE, CTPA was negative. The pulmonary nodule was discussed with the patient and she will follow-up for same, says she has had it in the past without change though. She developed some itching after Dilaudid and Benadryl was given. No evidence of severe allergic reaction. Feeling better after meds here. No evidence of meningitis or subarachnoid hemorrhage. She has chronic hypomagnesemia and received 2 g IV for that. Departure - Departure Disposition: 01 Home, Self Care Clinical Impression: Pulmonary nodule Headache Qualifiers: Headache type: unspecified Headache chronicity pattern: acute headache Intractability: not intractable Qualified Code(s): R51 - Headache Chest pain Qualifiers: Chest pain type: unspecified Qualified Code(s): R07.9 - Chest pain, unspecified Condition: Good Record reviewed to determine appropriate education?: Yes Instructions: ED Chest Pain Atypical Unkn Cause, ED Headache Tension Comments: You do have a 10 x 8 mm right upper lobe nodule. This needs further work-up and could be accomplished in a variety of ways. Discuss with your physician the potential of either: 1. Repeat CT in 3 months. 2. Positron emission tomography CT scanning. 3. Biopsy. Call your doctor to arrange a follow-up appointment, make the next available appointment. In the interim, return anytime if worse or if new symptoms develop.
[2019-07-14 15:09] LABS: BASOPHILS % (AUTO) 0.5 %; EOSINOPHILS # (AUTO) 0.2 10^3/uL (0.0-0.7); EOSINOPHILS % (AUTO) 2.1 %; HGB - HEMOGLOBIN 12.7 g/dL (12.0-16.0); LYMPHOCYTES # (AUTO) 1.4 10^3/uL (1.5-3.5); LYMPHOCYTES % (AUTO) 16.7 %; MEAN CORPUSCULAR HEMOGLOBIN 26.8 pg (27.0-31.0); MEAN CORPUSCULAR HGB CONC 31.8 g/dL (32.0-36.0); MEAN CORPUSCULAR VOLUME 84.4 fL (81.0-99.0); MEAN PLATELET VOLUME 8.8 fL (7.9-10.8); MONOCYTES # (AUTO) 0.7 10^3/uL (0.0-1.0); MONOCYTES % (AUTO) 8.2 %; NEUTROPHILS # (AUTO) 5.8 10^3/uL (1.5-6.6); NEUTROPHILS % (AUTO) 71.8 %; PLT - PLATELET COUNT 359 10^3/uL (130-450); RED BLOOD COUNT 4.74 10^6/uL (4.20-5.40); RED CELL DISTRIBUTION WIDTH 16.7 % (12.0-15.0); WHITE BLOOD COUNT 8.1 x10^3/uL (4.8-10.8)
[2019-07-14] MEDS ORDERED: IOVERSOL 320 100 ML VIAL IVP ONE ×2 (15:17→16:24)
[2019-07-14 15:23] LABS: ALBUMIN 3.7 g/dL (3.2-5.5); ALBUMIN/GLOBULIN RATIO 1.2 (1.0-2.2); BILIRUBIN,TOTAL 0.5 mg/dL (0.2-1.0); CALCIUM 8.8 mg/dL (8.5-10.3); CREATININE 0.5 mg/dL (0.4-1.0); TOTAL PROTEIN 6.9 g/dL (6.7-8.2)
--- NOTE | 2019-07-14 16:13 | CT Report ---
Reason: headache Procedure Date: 07/14/2019 Accession Number: [id number] / [id number] Procedure: CT - HEAD WO CPT Code: Final Report FULL RESULT: EXAM: CT HEAD EXAM DATE: 07/14/2019 03:45 PM. CLINICAL HISTORY: Headache. COMPARISON: HEAD W/O 04/10/2017 3:04 PM. TECHNIQUE: Multiaxial CT images were obtained from the foramen magnum to the vertex. Reformats: Sagittal and coronal. IV contrast: None. In accordance with CT protocol optimization, one or more of the following dose reduction techniques were utilized for this exam: automated exposure control, adjustment of mA and/or KV based on patient size, or use of iterative reconstructive technique. FINDINGS: Parenchyma: No intraparenchymal hemorrhage. No evidence of mass, midline shift, or CT findings of infarction. Alvarenga-white differentiation is distinct. Extraaxial Spaces: Normal for age. No subdural or epidural collections identified. Ventricles: Symmetric in size and normal in position. Sinuses and Orbits: Imaged paranasal sinuses, orbits, and mastoids show no significant abnormality. Bones: No evidence of fracture or calvarial defect. Other: None. IMPRESSION: Negative for an acute or focal intracranial abnormality. RADIA
[2019-07-14] MEDS ORDERED: MAGNESIUM SULFATE 2 GRAM 2 GM/50 ML BAG IV ONE (16:25)
--- NOTE | 2019-07-14 16:38 | CT Report ---
Reason: chest pain Procedure Date: 07/14/2019 Accession Number: [id number] / [id number] Procedure: CT - ANGIO CHEST W/WO CPT Code: Final Report FULL RESULT: EXAM: CT ANGIOGRAM CHEST EXAM DATE: 07/14/2019 03:58 PM. CLINICAL HISTORY: Chest pain. COMPARISON: CHEST 1 VIEW 02/27/2019 3:10 PM. TECHNIQUE: Routine helical imaging was performed through the chest in the pulmonary arterial phase. IV Contrast: OPTI 320 80ML. Reconstructions: Coronal 3-D MIP reconstructions. Sagittal and coronal. In accordance with CT protocol optimization, one or more of the following dose reduction techniques were utilized for this exam: automated exposure control, adjustment of mA and/or KV based on patient size, or use of iterative reconstructive technique. FINDINGS: Pulmonary Arteries: Diagnostic quality: Adequate through the segmental arteries. No pulmonary embolus is seen. Lungs/Pleura: Mild paraseptal and centrilobular emphysema. 10 x 8 mm subpleural nodule in the lateral right upper lobe (6/120). No focal infiltrate, pleural effusion, or pneumothorax. Mediastinum: Heart size is normal. Mild atherosclerotic calcifications in the left anterior descending coronary artery. No pericardial effusion. Moderate atherosclerotic calcifications and plaque within the aorta. No aortic aneurysm or dissection. No adenopathy. Upper Abdomen: Post cholecystectomy. Bones: Osteopenic. Mid/lower thoracic spine DISH. Late subacute versus chronic nondisplaced fracture of the inferior T9 vertebral body. Chronic appearing fracture deformity of the T12 superior endplate. Other: None. IMPRESSION: 1. Mild paraseptal and centrilobular emphysema. 2. 10 x 8 mm lateral right upper lobe nodule. Recommend CT, PET/CT, or tissue sampling at 3 months per 2017 Fleischner Society guidelines. 2. No pulmonary embolus or other acute process identified to explain chest pain. RADIA
[2019-07-14] MEDS ORDERED: diphenhydrAMINE INJ 50 MG/ML VIAL IVP STA (17:16)
[2019-07-14 17:27] VITALS: BP 171/83
== END 2019-07-14 18:35 | disposition home or self-care (01) ==
LOC: EDUNIT# → ED 13:54
DX: R07.81 Pleurodynia (principal); R91.1 Solitary pulmonary nodule; R51 Headache; J43.2 Centrilobular emphysema; E83.42 Hypomagnesemia; I11.0 Hypertensive heart disease with heart failure; I50.9 Heart failure, unspecified; E11.9 Type 2 diabetes mellitus without complications; Z79.84 Long term (current) use of oral hypoglycemic drugs; Z79.82 Long term (current) use of aspirin; F17.200 Nicotine dependence, unspecified, uncomplicated; L29.9 Pruritus, unspecified; E66.01 Morbid (severe) obesity due to excess calories; Z66 Do not resuscitate
CPT/HCPCS: 36415; 70450; 71275; 80053; 83690; 83735; 84484; 85025; 93005; 96374; 96375; 96376; 99284; 99285; J1170; J1200; Q9967

== ENCOUNTER 2019-08-02 07:00 | Outpatient (CLI) | payer MEDICARE | END 2019-08-02 23:59 | LOC: LAB.R 07:00 | PROVIDERS: ATTEND Registered Nurse | DX: R35.0 Frequency of micturition (principal) | CPT/HCPCS: 87086 ==

== ENCOUNTER 2019-08-18 07:00 | Outpatient (CLI) | payer MEDICARE ==
[2019-08-18 12:12] LABS: HB2 TOTAL 13.1 g/dL; HEMOGLOBIN A1C 0.71 g/dL; HEMOGLOBIN A1C % 7.1 % (4.6-6.2)
== END 2019-08-18 23:59 | disposition home or self-care (01) ==
LOC: LAB.R 07:00
PROVIDERS: ATTEND Physician Assistant
DX: E11.40 Type 2 diabetes mellitus with diabetic neuropathy, unspecified (principal)
CPT/HCPCS: 83036

== ENCOUNTER 2019-08-18 10:31 | Outpatient (CLI) | payer MEDICARE ==
[2019-08-18] MEDS ORDERED: SODIUM CHLORIDE FLUSH 0.9% 10 ML SYRINGE ONE (11:30)
--- NOTE | 2019-08-18 14:27 | XRAY Report ---
Reason: CERVICALGIA Procedure Date: 08/18/2019 Accession Number: [id number] / [id number] Procedure: XR - Cervical Spine 2 View CPT Code: Final Report FULL RESULT: EXAM: CERVICAL SPINE RADIOGRAPHY EXAM DATE: 08/18/2019 10:50 AM. CLINICAL HISTORY: CERVICALGIA. COMPARISONS: XR CERVICAL SPINE MIN 4 VIEWS 04/02/2009 12:38 PM CERVICAL SPINE W/O 05/14/2017 4:36 PM. TECHNIQUE: 3 views. FINDINGS: Alignment: Normal. No spondylolisthesis or scoliosis. Bones: The cervical vertebral bodies and posterior elements are well visualized from the skull base through C7-T1. No fractures or bone lesions. Disks: Mild loss of C6-C7 disk space height. Facets: Normally aligned. Soft Tissues: Left subclavian Port-A-Cath. Atherosclerotic aortic calcification. IMPRESSION: Mild degenerative change. RADIA
== END 2019-08-18 10:32 | disposition home or self-care (01) ==
LOC: DI 10:31
PROVIDERS: ATTEND Physician Assistant
DX: M50.323 Other cervical disc degeneration at C6-C7 level (principal)
CPT/HCPCS: 72040

== ENCOUNTER 2019-09-29 06:50 | Outpatient (CLI) | payer MEDICARE | END 2019-09-29 06:51 | disposition critical access hospital (66) | LOC: EMS 06:50 | PROVIDERS: ATTEND Surgery | DX: R53.1 Weakness (principal); M54.9 Dorsalgia, unspecified; R10.2 Pelvic and perineal pain | CPT/HCPCS: A0425; A0429 ==

== ENCOUNTER 2019-09-29 07:04 | Emergency (ER) | payer MEDICARE ==
[2019-09-29] MEDS ORDERED: CIPROFLOXACIN 400 MG/200 ML 200 ML IV ONE (07:33)
[2019-09-29] MEDS ORDERED: MAGNESIUM SULFATE 2 GRAM 2 GM/50 ML BAG IV ONE ×2 (07:34→08:35)
--- NOTE | 2019-09-29 07:34 | ED Physician Documentation ---
History of Present Illness - Stated complaint Stated Complaint: CHILLS - Chief complaint Chief Complaint: General - History obtained from History obtained from: Patient - History of Present Illness Timing: How many days ago (2) Pain level max: 8 Pain level now: 8 - Additonal information Additional information: 64-year-old female with a long list of medical problems presents to the emergency department with right lower extremity redness, swelling and pain. Started after a fall. She was placed on Bactrim yesterday and has taken 2 doses. She states that the redness is continuing to spread. She had chills last night, no fever. No vomiting. Chronic unchanged abdominal pain. She states that her knees hurt from the fall as well, she has bilateral knee replacements and states that it is worse with walking and better with rest. She is on Vicodin at home. Patient also states that she gets weekly magnesium infusions, but is unable to get her infusion this week. She is requesting that here. Review of Systems Constitutional: reports: Chills. 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: Ovarian cysts, Other : Incontinence HEENT: Chronic vision loss, Chronic sinusitis Psych: Depression, Anxiety, Obsessive compulsive disorder, Other Musculoskeletal: Osteoarthritis, Other Derm: Other - Past Surgical History Past Surgical History: Yes General: Cholecystectomy, Appendectomy, Bowel surgery, Other Ortho: Knee replacement /STRAIGHT LINE PRESS SETTER: 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, Oophrectomy Cardiovascular: Cardiac catheterization HEENT: Tonsil/Adenoidectomy - Present Medications Home Medications: Ambulatory Orders Medication Instructions Recorded Confirmed Aspirin [Aspirin EC] 650 mg PO 0800,1200,1600,199905/29/13 08/26/19 Metoprolol Tartrate 50 mg PO BID 05/29/13 08/26/19 Potassium Chloride 20 meq PO DAILY PRN 05/29/13 08/26/19 Glimepiride 1 mg PO QDBREAKFAST 03/03/17 08/26/19 metFORMIN [Glucophage] 1,000 mg PO BID 03/03/17 08/26/19 Fluticasone [Flonase] 1 sprays MATT DAILY 11/26/17 08/26/19 Propylene Glycol/Peg 400/Pf 1 drops EACHEYE QID PRN 11/26/17 08/26/19 [Systane 0.3-0.4% Eye Drop] Timolol 0.5% Ophth Drops [Timoptic 1 drops EACHEYE BID 11/26/17 08/26/19 0.5% Ophth Drops] Esomeprazole Magnesium [Nexium] 40 mg PO DAILY 05/03/18 08/26/19 Saccharomyces Boulardii [Florastor] 250 mg PO DAILY 05/03/18 08/26/19 Cetirizine [ZyrTEC] 10 mg PO DAILY PM 09/06/18 08/26/19 predniSONE [Deltasone] 17.5 mg PO DAILY 09/06/18 08/26/19 Calcitonin [Fortical] 1 sprays MATT DAILY 10/25/18 08/26/19 Chlorhexidine Gluconate 15 ml MM DAILY 12/21/18 08/26/19 Ondansetron Odt [Zofran Odt] 4 mg PO TID 12/21/18 08/26/19 buPROPion HCL [Bupropion HCl Sr] 150 mg PO BID 12/21/18 08/26/19 Nystatin [Nystop] 1 applic TOP QID PRN #1 bottle 12/24/18 08/26/19 Fluconazole 200 mg PO DAILY 02/21/19 08/26/19 Ciprofloxacin HCl [Cipro] 500 mg PO BID #20 tablet 02/27/19 08/26/19 Ondansetron Odt [Zofran] 4 mg TL Q6H PRN #10 tablet 02/27/19 08/26/19 Escitalopram [Lexapro] 10 mg PO DAILY 08/18/19 08/26/19 Ciprofloxacin HCl [Cipro] 500 mg PO BID #20 tablet 09/29/19 - Allergies Allergies/Adverse Reactions: Allergies Allergy/AdvReac Type Severity Reaction Status Date / Time droperidol [From Inapsine] Allergy Severe EPS Verified 08/26/19 11:22 ibuprofen [From Motrin] Allergy Severe Anaphylaxis Verified 08/26/19 11:22 peanut Allergy Severe Anaphylaxis Verified 08/26/19 11:22 shellfish derived Allergy Severe Anaphylaxis Verified 08/26/19 11:22 [id number] Reductase Allergy Severe muscle pain Verified 08/26/19 11:22 Inhibitor amoxicillin [Amoxicillin] Allergy Intermediate Hives Verified 08/26/19 11:22 cefazolin Allergy Intermediate Hives Verified 08/26/19 11:22 Cephalosporins Allergy Intermediate Hives Verified 08/26/19 11:22 clindamycin Allergy Intermediate Hives Verified 08/26/19 11:22 cyclobenzaprine Allergy Intermediate Hives/night Verified 08/26/19 11:22 [Cyclobenzaprine] castaneda erythromycin base Allergy Intermediate Hives Verified 08/26/19 11:22 [Erythromycin Base] potassium clavulanate * Allergy Intermediate Hives Verified 08/26/19 11:22 [From Augmentin] ketorolac tromethamine * Allergy Anaphylaxis Verified 08/26/19 11:22 [From Toradol] adhesive tape AdvReac Severe BLISTERS Verified 08/26/19 11:22 duloxetine AdvReac Severe Suicidal Verified 08/26/19 11:22 etanercept [From Enbrel] AdvReac Severe Nausea/vomm Verified 08/26/19 11:22 iting/cramp s methotrexate AdvReac Severe N/V/Cramps Verified 08/26/19 11:22 NSAIDS (Non-Steroidal AdvReac Severe Anaphylaxis Verified 08/26/19 11:22 Anti-Inflamma prochlorperazine AdvReac Severe EPS Verified 08/26/19 11:22 pseudoephedrine AdvReac Severe Tachycardia Verified 08/26/19 11:22 sumatriptan AdvReac Severe Widened QRS Verified 08/26/19 11:22 doxycycline AdvReac Intermediate Hives Verified 08/26/19 11:22 gabapentin AdvReac Intermediate Gait Verified 08/26/19 11:22 disturbance latex AdvReac Intermediate Sensitivity Verified 08/26/19 11:22 morphine AdvReac Unknown Verified 08/26/19 11:22 prochlorperazine edisylate * AdvReac Unknown Verified 08/26/19 11:22 [From Compazine] prochlorperazine maleate * AdvReac Unknown Verified 08/26/19 11:22 [From Compazine] promethazine [From Phenergan] AdvReac Hallucinati Verified 08/26/19 11:22 ons - Social History Does the pt smoke?: Yes Smoking Status: Current every day smoker Does the pt drink ETOH?: Yes Does the pt have substance abuse?: No - Immunizations Immunizations are current?: Yes - POLST Patient has POLST: Yes POLST Status: DNR PD ED PE NORMAL - Vitals Vital signs reviewed: Yes - General General: Alert and oriented X 3, No acute distress, Well developed/nourished - HEENT HEENT: PERRL, Moist mucous membranes - Neck Neck: Supple, no meningeal sign - Cardiac Cardiac: RRR - Respiratory Respiratory: No respiratory distress, Clear bilaterally - Abdomen Abdomen: Soft, Non tender, Non distended - Derm Derm: Warm and dry - Extremities Extremities: Other (Erythema, swelling from the ankle to the proximal davis area. This is approximately 14 x 8 cm. Warmth, tenderness. No calf tenderness.) - Neuro Neuro: Alert and oriented X 3 - Psych Psych: Normal mood, Normal affect Results - Vitals Vitals: Vital Signs - 24 hr 09/29/19 09/29/19 09/29/19 07:17 07:30 08:30 Temperature 36.6 C Heart Rate 94 89 83 Respiratory 22 18 18 Rate Blood Pressure 187/88 H 124/65 124/66 O2 Saturation 96 97 97 09/29/19 10:00 Temperature Heart Rate 79 Respiratory 18 Rate Blood Pressure 95/65 O2 Saturation 96 Oxygen O2 Source [Without Activity] Room air O2 Source Room air - Labs Labs: Laboratory Tests 09/29/19 09/29/19 09/29/19 07:22 07:40 07:40 WBC 12.0 H RBC 4.82 Hgb 13.3 Hct 41.0 MCV 85.1 MCH 27.6 MCHC 32.4 RDW 20.8 H Plt Count 302 MPV 9.3 Neut # (Auto) 9.5 H Lymph # (Auto) 1.2 L Wagoner # (Auto) 1.0 Eos # (Auto) 0.1 Baso # (Auto) 0.1 Absolute Nucleated RBC 0.00 Nucleated RBC % 0.0 ESR Sodium 136 Potassium 3.0 L Chloride 100 L Carbon Dioxide 26 Anion Gap 10.0 BUN 15 Creatinine 0.6 Estimated GFR (MDRD) 101 Glucose 106 H Lactic Acid Calcium 7.9 L Phosphorus 3.4 Magnesium 0.8 L* Total Bilirubin 0.6 AST 17 ALT 16 Alkaline Phosphatase 113 C-Reactive Protein 11.4 H Total Protein 6.9 Albumin 3.8 Globulin 3.1 Albumin/Globulin Ratio 1.2 Lipase 36 Urine Color YELLOW Urine Clarity CLEAR Urine pH 6.5 Ur Specific Bowie 1.015 Urine Protein TRACE Urine Glucose (UA) NEGATIVE Urine Ketones NEGATIVE Urine Occult Blood NEGATIVE Urine Nitrite NEGATIVE Urine Bilirubin NEGATIVE Urine Urobilinogen 0.2 (NORMAL) Ur Leukocyte Esterase NEGATIVE Ur Microscopic Review NOT INDICATED Urine Culture Comments NOT INDICATED 09/29/19 09/29/19 07:40 07:40 WBC RBC Hgb Hct MCV MCH MCHC RDW Plt Count MPV Neut # (Auto) Lymph # (Auto) Wagoner # (Auto) Eos # (Auto) Baso # (Auto) Absolute Nucleated RBC Nucleated RBC % ESR 29 Sodium Potassium Chloride Carbon Dioxide Anion Gap BUN Creatinine Estimated GFR (MDRD) Glucose Lactic Acid 1.8 Calcium Phosphorus Magnesium Total Bilirubin AST ALT Alkaline Phosphatase C-Reactive Protein Total Protein Albumin Globulin Albumin/Globulin Ratio Lipase Urine Color Urine Clarity Urine pH Ur Specific Bowie Urine Protein Urine Glucose (UA) Urine Ketones Urine Occult Blood Urine Nitrite Urine Bilirubin Urine Urobilinogen Ur Leukocyte Esterase Ur Microscopic Review Urine Culture Comments - Rads (name of study) B knee xray Radiology: Prelim report reviewed, EMP read contemporaneously, See rad report (No acute abnormality) PD MEDICAL DECISION MAKING - ED course Complexity details: reviewed old records, reviewed results, re-evaluated patient, considered differential, d/w patient ED course: Patient has many antibiotic allergies, she can take Cipro and we will add this to her antibiotic regimen at this time. Also given a magnesium infusion here. Patient is not septic. Feels better after her magnesium infusions. Also feels better after her Cipro infusion. We will change her to ciprofloxacin for home. She is allergic to penicillins, cephalosporins, clindamycin and tetracyclines. Patient counseled regarding signs and symptoms for which I believe and urgent re-evaluation would be necessary. Patient with good understanding of and agreement to plan and is comfortable going home at this time This document was made in part using voice recognition software. While efforts are made to proofread this document, sound alike and grammatical errors may occur. Departure - Departure Disposition: Home, Self Care Clinical Impression: Hypomagnesemia Cellulitis Qualifiers: Site of cellulitis: extremity Site of cellulitis of extremity: lower extremity Laterality: right Qualified Code(s): L03.115 - Cellulitis of right lower limb Knee contusion Qualifiers: Encounter type: initial encounter Laterality: unspecified laterality Qualified Code(s): S80.00XA - Contusion of unspecified knee, initial encounter Condition: Good Instructions: ED Infec Skin Cellulitis Follow-Up: Dariela Montiel PA [Primary Care Provider] - Within 1 week Prescriptions: Ciprofloxacin HCl [Cipro] 500 mg PO BID #20 tablet Comments: We will change you to ciprofloxacin and you should improve over the next 24 hours. Return if you worsen. You are also given magnesium, 4 g IV today.
[2019-09-29 07:43] LABS: BILIRUBIN,URINE NEGATIVE (NEGATIVE); GLUCOSE, URINE (UA) NEGATIVE (NEGATIVE); KETONES,URINE (UA) NEGATIVE (NEGATIVE); LEUKOCYTE ESTERASE, URINE NEGATIVE (NEGATIVE); NITRITE,URINE NEGATIVE (NEGATIVE); OCCULT BLOOD,URINE NEGATIVE (NEGATIVE); PH,URINE 6.5 PH (5.0-7.5); PROTEIN,URINE TRACE mg/dL (NEGATIVE); UROBILINOGEN,URINE 0.2 (NORMAL) E.U./dL (NORMAL)
[2019-09-29 07:48] LABS: CLARITY,URINE CLEAR (CLEAR)
[2019-09-29 07:51] LABS: BASOPHILS # (AUTO) 0.1 10^3/uL (0.0-0.1); BASOPHILS % (AUTO) 0.5 %; EOSINOPHILS # (AUTO) 0.1 10^3/uL (0.0-0.7); HGB - HEMOGLOBIN 13.3 g/dL (12.0-16.0); LYMPHOCYTES # (AUTO) 1.2 10^3/uL (1.5-3.5); LYMPHOCYTES % (AUTO) 10.3 %; MEAN CORPUSCULAR HEMOGLOBIN 27.6 pg (27.0-31.0); MEAN CORPUSCULAR HGB CONC 32.4 g/dL (32.0-36.0); MEAN CORPUSCULAR VOLUME 85.1 fL (81.0-99.0); MEAN PLATELET VOLUME 9.3 fL (7.9-10.8); MONOCYTES % (AUTO) 8.2 %; NEUTROPHILS # (AUTO) 9.5 10^3/uL (1.5-6.6); NEUTROPHILS % (AUTO) 79.3 %; PLT - PLATELET COUNT 302 10^3/uL (130-450); RED BLOOD COUNT 4.82 10^6/uL (4.20-5.40); RED CELL DISTRIBUTION WIDTH 20.8 % (12.0-15.0)
[2019-09-29 08:07] LABS: ALBUMIN 3.8 g/dL (3.2-5.5); ALBUMIN/GLOBULIN RATIO 1.2 (1.0-2.2); BILIRUBIN,TOTAL 0.6 mg/dL (0.2-1.0); CALCIUM 7.9 mg/dL (8.5-10.3); CREATININE 0.6 mg/dL (0.4-1.0); CRP - C-REACTIVE PROTEIN 11.4 mg/dL (0-1.0); PHOSPHORUS 3.4 mg/dL (2.5-4.6); TOTAL PROTEIN 6.9 g/dL (6.7-8.2)
[2019-09-29 08:08] LABS: MAGNESIUM 0.8 mg/dL (1.7-2.8)
--- NOTE | 2019-09-29 08:20 | XRAY Report ---
Reason: Fall, knee pain Procedure Date: 09/29/2019 Accession Number: [id number] / [id number] Procedure: XR - Knee 2 View BILAT CPT Code: Final Report FULL RESULT: EXAMS: 1. RIGHT KNEE RADIOGRAPHY 2. LEFT KNEE RADIOGRAPHY EXAM DATE:09/29/2019 07:42 AM. CLINICAL HISTORY:Fall, knee pain. COMPARISON: KNEE 3 VIEW BILAT 07/06/2017 12:32 PM. TECHNIQUE: 2 views each knee. FINDINGS: Right Knee: Stable appearance of previous total knee arthroplasty without evidence of loosening. No fracture or dislocation identified. No suprapatellar joint effusion. Left Knee: Stable appearance of previous left knee total arthroplasty, without evidence of loosening. No bone fracture or dislocation. No suprapatellar joint effusion. IMPRESSION: No acute bony abnormality detected. RADIA
[2019-09-29] MEDS ORDERED: HYDROcod/ACETAM 5/325 MG TABLET PO STA (08:34)
[2019-09-29] MEDS ORDERED: ONDANSETRON ODT 4 MG TABLET TL STA (09:03)
[2019-09-29 11:21] VITALS: BP 101/64
== END 2019-09-29 11:21 | disposition home or self-care (01) ==
LOC: EDUNIT# → ED 07:04
DX: L03.115 Cellulitis of right lower limb (principal); E83.42 Hypomagnesemia; S80.00XA Contusion of unspecified knee, initial encounter; W19.XXXA Unspecified fall, initial encounter; I11.0 Hypertensive heart disease with heart failure; I50.9 Heart failure, unspecified; E11.9 Type 2 diabetes mellitus without complications; F42.9 Obsessive-compulsive disorder, unspecified; F32.9 Major depressive disorder, single episode, unspecified; F41.9 Anxiety disorder, unspecified; H54.7 Unspecified visual loss; R32 Unspecified urinary incontinence; F17.200 Nicotine dependence, unspecified, uncomplicated; Z66 Do not resuscitate; Z96.653 Presence of artificial knee joint, bilateral; Z79.82 Long term (current) use of aspirin; Z79.84 Long term (current) use of oral hypoglycemic drugs
CPT/HCPCS: 36415; 73565; 80053; 81003; 83605; 83690; 83735; 84100; 85025; 85651; 86140; 87040; 99284; 99285; A9270; Q0162; 81001; 87086

== ENCOUNTER 2019-10-27 15:09 | Outpatient (CLI) | payer MEDICARE | END 2019-10-27 15:10 | disposition critical access hospital (66) | LOC: EMS 15:09 | PROVIDERS: ATTEND Surgery | DX: R53.1 Weakness (principal) | CPT/HCPCS: A0425; A0427 ==

== ENCOUNTER 2019-10-27 15:20 | Emergency (ER) | payer MEDICARE ==
[2019-10-27] MEDS ORDERED: MAGNESIUM SULFATE 2 GRAM 2 GM/50 ML BAG IV ONE ×2 (15:27→17:13)
[2019-10-27] MEDS ORDERED: SODIUM CHLORIDE 0.9% 1,000 ML IV ONE (15:27)
--- NOTE | 2019-10-27 15:38 | ED Physician Documentation ---
History of Present Illness - Stated complaint Stated Complaint: GENERAL WEAKNESS - Chief complaint Chief Complaint: General - History obtained from History obtained from: Patient (This is a 64-year-old woman who presents by ambulance for generalized weakness. She has a history of profound recurrent electrolyte abnormalities, especially hypomagnesemia for which she gets weekly infusions of magnesium. These are usually on Thursday and her last infusion was last Thursday. She is been out of sorts over the last week, a number of things have happened, she needed a new clothes washer, her septic tank overflowed, her dog ran away and then came back. Because of all this she feels like maybe she has not eaten or drinking as well as usual and feels like her symptoms of profound electrolyte abnormalities are worse than normal manifesting with generalized weakness and fatigue. She denies any new pain anywhere, just her usual Back pain. She is depressed, but denies suicidal ideation.) Review of Systems Constitutional: denies: Fever, Chills Cardiac: denies: Chest pain / pressure, Palpitations Respiratory: denies: Dyspnea, Cough GI: denies: Abdominal Pain PD PAST MEDICAL HISTORY - Past Medical History Cardiovascular: Congestive heart failure, Hypertension Respiratory: Other Neuro: None Endocrine/Autoimmune: Type 2 diabetes, Other GI: GERD, Colon polyps, Chronic diarrhea, Other CARROT TIER: Ovarian cysts, Other : Incontinence HEENT: Chronic vision loss, Chronic sinusitis Psych: Depression, Anxiety, Obsessive compulsive disorder, Other Musculoskeletal: Osteoarthritis, Other Derm: Other - Past Surgical History Past Surgical History: Yes General: Cholecystectomy, Appendectomy, Bowel surgery, Other Ortho: Knee replacement /CARROT TIER: 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, Oophrectomy Cardiovascular: Cardiac catheterization HEENT: Tonsil/Adenoidectomy - Present Medications Home Medications: Ambulatory Orders Medication Instructions Recorded Confirmed Aspirin [Aspirin EC] 650 mg PO 0800,1200,1600,2000 05/29/13 08/26/19 Metoprolol Tartrate 50 mg PO BID 05/29/13 08/26/19 Potassium Chloride 20 meq PO DAILY PRN 05/29/13 08/26/19 Glimepiride 1 mg PO QDBREAKFAST 03/03/17 08/26/19 metFORMIN [Glucophage] 1,000 mg PO BID 03/03/17 08/26/19 Fluticasone [Flonase] 1 sprays MATT DAILY 11/26/17 08/26/19 Propylene Glycol/Peg 400/Pf 1 drops EACHEYE QID PRN 11/26/17 08/26/19 [Systane 0.3-0.4% Eye Drop] Timolol 0.5% Ophth Drops [Timoptic 1 drops EACHEYE BID 11/26/17 08/26/19 0.5% Ophth Drops] Esomeprazole Magnesium [Nexium] 40 mg PO DAILY 05/03/18 08/26/19 Saccharomyces Boulardii [Florastor] 250 mg PO DAILY 05/03/18 08/26/19 Cetirizine [ZyrTEC] 10 mg PO DAILY PM 09/06/18 08/26/19 predniSONE [Deltasone] 17.5 mg PO DAILY 09/06/18 08/26/19 Calcitonin [Fortical] 1 sprays MATT DAILY 10/25/18 08/26/19 Chlorhexidine Gluconate 15 ml MM DAILY 12/21/18 08/26/19 Ondansetron Odt [Zofran Odt] 4 mg PO TID 12/21/18 08/26/19 buPROPion HCL [Bupropion HCl Sr] 150 mg PO BID 12/21/18 08/26/19 Nystatin [Nystop] 1 applic TOP QID PRN #1 bottle 12/24/18 08/26/19 Fluconazole 200 mg PO DAILY 02/21/19 08/26/19 Ciprofloxacin HCl [Cipro] 500 mg PO BID #20 tablet 02/27/19 08/26/19 Ondansetron Odt [Zofran] 4 mg TL Q6H PRN #10 tablet 02/27/19 08/26/19 Escitalopram [Lexapro] 10 mg PO DAILY 08/18/19 08/26/19 Ciprofloxacin HCl [Cipro] 500 mg PO BID #20 tablet 09/29/19 - Allergies Allergies/Adverse Reactions: Allergies Allergy/AdvReac Type Severity Reaction Status Date / Time droperidol [From Inapsine] Allergy Severe EPS Verified 10/27/19 15:28 ibuprofen [From Motrin] Allergy Severe Anaphylaxis Verified 10/27/19 15:28 peanut Allergy Severe Anaphylaxis Verified 10/27/19 15:28 shellfish derived Allergy Severe Anaphylaxis Verified 10/27/19 15:28 [id number]-[id number]-Tzj Reductase Allergy Severe muscle pain Verified 10/27/19 15:28 Inhibitor amoxicillin [Amoxicillin] Allergy Intermediate Hives Verified 10/27/19 15:28 cefazolin Allergy Intermediate Hives Verified 10/27/19 15:28 Cephalosporins Allergy Intermediate Hives Verified 10/27/19 15:28 clindamycin Allergy Intermediate Hives Verified 10/27/19 15:28 cyclobenzaprine Allergy Intermediate Hives/night Verified 10/27/19 15:28 [Cyclobenzaprine] castaneda erythromycin base Allergy Intermediate Hives Verified 10/27/19 15:28 [Erythromycin Base] potassium clavulanate * Allergy Intermediate Hives Verified 10/27/19 15:28 [From Augmentin] ketorolac tromethamine * Allergy Anaphylaxis Verified 10/27/19 15:28 [From Toradol] adhesive tape AdvReac Severe BLISTERS Verified 10/27/19 15:28 duloxetine AdvReac Severe Suicidal Verified 10/27/19 15:28 etanercept [From Enbrel] AdvReac Severe Nausea/vomm Verified 10/27/19 15:28 iting/cramp s methotrexate AdvReac Severe N/V/Cramps Verified 10/27/19 15:27 NSAIDS (Non-Steroidal AdvReac Severe Anaphylaxis Verified 10/27/19 15:27 Anti-Inflamma prochlorperazine AdvReac Severe EPS Verified 10/27/19 15:27 pseudoephedrine AdvReac Severe Tachycardia Verified 10/27/19 15:27 sumatriptan AdvReac Severe Widened QRS Verified 10/27/19 15:27 doxycycline AdvReac Intermediate Hives Verified 10/27/19 15:27 gabapentin AdvReac Intermediate Gait Verified 10/27/19 15:27 disturbance latex AdvReac Intermediate Sensitivity Verified 10/27/19 15:27 morphine AdvReac Unknown Verified 10/27/19 15:27 prochlorperazine edisylate * AdvReac Unknown Verified 10/27/19 15:27 [From Compazine] prochlorperazine maleate * AdvReac Unknown Verified 10/27/19 15:27 [From Compazine] promethazine [From Phenergan] AdvReac Hallucinati Verified 10/27/19 15:27 ons - Social History Does the pt smoke?: Yes Smoking Status: Current every day smoker Does the pt drink ETOH?: Yes Does the pt have substance abuse?: No - Immunizations Immunizations are current?: Yes - POLST Patient has POLST: Yes POLST Status: DNR PD ED PE NORMAL - Vitals Vital signs reviewed: Yes - General General: Alert and oriented X 3, No acute distress - Respiratory Respiratory: No respiratory distress - Abdomen Abdomen: Non tender - Extremities Extremities: No edema, No calf tenderness / cord - Neuro Neuro: Alert and oriented X 3, Normal speech Results - Vitals Vitals: Vital Signs - 24 hr 10/27/19 10/27/19 15:28 18:08 Temperature 37.3 C Heart Rate 82 68 Respiratory 16 16 Rate Blood Pressure 164/90 H 107/62 O2 Saturation 96 94 Oxygen O2 Source [Without Activity] Room air O2 Source Room air - Labs Labs: Laboratory Tests 10/27/19 16:06 Sodium 138 Potassium 2.9 L Chloride 100 L Carbon Dioxide 27 Anion Gap 11.0 BUN 19 Creatinine 0.7 Estimated GFR (MDRD) 85 L Glucose 128 H Calcium 8.9 Magnesium 1.1 L Total Bilirubin 0.6 AST 16 ALT 14 Alkaline Phosphatase 109 Total Protein 6.6 L Albumin 3.8 Globulin 2.8 Albumin/Globulin Ratio 1.4 Lipase 37 PD MEDICAL DECISION MAKING - ED course ED course: 64-year-old woman with recurrence electrolyte abnormalities presents with generalized weakness, her magnesium actually is not as bad as it is been in the past but she says she usually receives 4 g for up magnesium of 1.1. She also received supplemental potassium. Departure - Departure Disposition: 01 Home, Self Care Clinical Impression: Hypokalemia Condition: Good Record reviewed to determine appropriate education?: Yes Instructions: ED Potassium Deficiency Comments: Call your doctor to arrange a follow-up appointment, make the next available appointment. In the interim, return anytime if worse or if new symptoms develop. Discharge Date/Time: 10/27/19 19:03
[2019-10-27 16:28] LABS: ALBUMIN 3.8 g/dL (3.2-5.5); ALBUMIN/GLOBULIN RATIO 1.4 (1.0-2.2); BILIRUBIN,TOTAL 0.6 mg/dL (0.2-1.0); CALCIUM 8.9 mg/dL (8.5-10.3); CREATININE 0.7 mg/dL (0.4-1.0); MAGNESIUM 1.1 mg/dL (1.7-2.8); TOTAL PROTEIN 6.6 g/dL (6.7-8.2)
[2019-10-27] MEDS ORDERED: POTASSIUM CHLORIDE 20 MEQ TABLET PO STA (16:45)
[2019-10-27] MEDS ORDERED: POTASSIUM CHLOR 10 MEQ/100 ML 10 MEQ/100 ML BAG IV ONE (16:45)
[2019-10-27 18:09] VITALS: BP 107/62
== END 2019-10-27 19:03 | disposition home or self-care (01) ==
LOC: EDUNIT# → ED 15:20
DX: E87.6 Hypokalemia (principal); I10 Essential (primary) hypertension; E11.9 Type 2 diabetes mellitus without complications; F17.200 Nicotine dependence, unspecified, uncomplicated; Z79.84 Long term (current) use of oral hypoglycemic drugs; Z66 Do not resuscitate
CPT/HCPCS: 36415; 80053; 83690; 83735; 96361; 96365; 96367; 96368; 96375; 99284; 99285; A9270

== ENCOUNTER 2019-11-08 12:13 | Outpatient (CLI) | payer MEDICARE | END 2019-11-08 12:14 | disposition critical access hospital (66) | LOC: EMS 12:13 | PROVIDERS: ATTEND Surgery | DX: R42 Dizziness and giddiness (principal); R51 Headache; R29.6 Repeated falls | CPT/HCPCS: A0425; A0429 ==

== ENCOUNTER 2019-11-08 12:30 | Emergency (ER) | payer MEDICARE ==
--- NOTE | 2019-11-08 14:13 | ED Physician Documentation ---
PD HPI HEENT - Stated complaint Stated Complaint: DIZZINESS - Chief complaint Chief Complaint: Neuro - History obtained from History obtained from: Patient - History of Present Illness Timing - onset: How many weeks ago (1) Timing - duration: Weeks (1) Timing - details: Gradual onset, Still present (has had headache, nausea, feeling of lightheaded and diffuse joint aches for several days to a week, over her baseline. Had had recent steroid dosing which made her feel better.) Location: Throat. No: Nose, Tooth Worsens: Swalllowing Associated symptoms: Congestion, Facial swelling, Headache. No: Fever, Trismus Similar symptoms before: Diagnosis (chronic recurrent headache, thought of some immune related joint pains.) Review of Systems Constitutional: reports: Fever, Chills Nose: reports: Rhinorrhea / runny nose, Reviewed and negative Throat: denies: Sore throat Cardiac: denies: Chest pain / pressure, Palpitations Respiratory: denies: Dyspnea, Cough GI: denies: Abdominal Pain, Nausea, Vomiting, Diarrhea, Bloody / black stool : denies: Dysuria Skin: denies: Rash, Lesions Musculoskeletal: reports: Back pain (upper lumbar wrapping around right uper abd to GB area.). 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, Other : Incontinence HEENT: Chronic vision loss, Chronic sinusitis Psych: Depression, Anxiety, Obsessive compulsive disorder, Other Musculoskeletal: Osteoarthritis, Other Derm: Other - Past Surgical History Past Surgical History: Yes General: Cholecystectomy, Appendectomy, Bowel surgery, Other Ortho: Knee replacement /MARINE FIRE FIGHTER: 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, Oophrectomy Cardiovascular: Cardiac catheterization HEENT: Tonsil/Adenoidectomy - Present Medications Home Medications: Ambulatory Orders Medication Instructions Recorded Confirmed Aspirin [Aspirin EC] 650 mg PO 0800,1200,1600,2000 05/29/13 08/26/19 Metoprolol Tartrate 50 mg PO BID 05/29/13 08/26/19 Potassium Chloride 20 meq PO DAILY PRN 05/29/13 08/26/19 Glimepiride 1 mg PO QDBREAKFAST 03/03/17 08/26/19 metFORMIN [Glucophage] 1,000 mg PO BID 03/03/17 08/26/19 Fluticasone [Flonase] 1 sprays MATT DAILY 11/26/17 08/26/19 Propylene Glycol/Peg 400/Pf 1 drops EACHEYE QID PRN 11/26/17 08/26/19 [Systane 0.3-0.4% Eye Drop] Timolol 0.5% Ophth Drops [Timoptic 1 drops EACHEYE BID 11/26/17 08/26/19 0.5% Ophth Drops] Esomeprazole Magnesium [Nexium] 40 mg PO DAILY 05/03/18 08/26/19 Saccharomyces Boulardii [Florastor] 250 mg PO DAILY 05/03/18 08/26/19 Cetirizine [ZyrTEC] 10 mg PO DAILY PM 09/06/18 08/26/19 predniSONE [Deltasone] 17.5 mg PO DAILY 09/06/18 08/26/19 Calcitonin [Fortical] 1 sprays MATT DAILY 10/25/18 08/26/19 Chlorhexidine Gluconate 15 ml MM DAILY 12/21/18 08/26/19 Ondansetron Odt [Zofran Odt] 4 mg PO TID 12/21/18 08/26/19 buPROPion HCL [Bupropion HCl Sr] 150 mg PO BID 12/21/18 08/26/19 Nystatin [Nystop] 1 applic TOP QID PRN #1 bottle 12/24/18 08/26/19 Fluconazole 200 mg PO DAILY 02/21/19 08/26/19 Ciprofloxacin HCl [Cipro] 500 mg PO BID #20 tablet 02/27/19 08/26/19 Ondansetron Odt [Zofran] 4 mg TL Q6H PRN #10 tablet 02/27/19 08/26/19 Escitalopram [Lexapro] 10 mg PO DAILY 08/18/19 08/26/19 Ciprofloxacin HCl [Cipro] 500 mg PO BID #20 tablet 09/29/19 Mupirocin 1 applic TP TID #15 g 11/08/19 Sulfamethox/Trimeth 800/160 1 each PO BID #14 tablet 11/08/19 [Bactrim Ds 800/160] dexAMETHasone [Decadron] 4 mg PO DAILY #7 tablet 11/08/19 - Allergies Allergies/Adverse Reactions: Allergies Allergy/AdvReac Type Severity Reaction Status Date / Time droperidol [From Inapsine] Allergy Severe EPS Verified 10/27/19 15:28 ibuprofen [From Motrin] Allergy Severe Anaphylaxis Verified 10/27/19 15:28 peanut Allergy Severe Anaphylaxis Verified 10/27/19 15:28 shellfish derived Allergy Severe Anaphylaxis Verified 10/27/19 15:28 Pmjskki-Vid-Itd Reductase Allergy Severe muscle pain Verified 10/27/19 15:28 Inhibitor amoxicillin [Amoxicillin] Allergy Intermediate Hives Verified 10/27/19 15:28 cefazolin Allergy Intermediate Hives Verified 10/27/19 15:28 Cephalosporins Allergy Intermediate Hives Verified 10/27/19 15:28 clindamycin Allergy Intermediate Hives Verified 10/27/19 15:28 cyclobenzaprine Allergy Intermediate Hives/night Verified 10/27/19 15:28 [Cyclobenzaprine] castaneda erythromycin base Allergy Intermediate Hives Verified 10/27/19 15:28 [Erythromycin Base] potassium clavulanate * Allergy Intermediate Hives Verified 10/27/19 15:28 [From Augmentin] ketorolac tromethamine * Allergy Anaphylaxis Verified 10/27/19 15:28 [From Toradol] adhesive tape AdvReac Severe BLISTERS Verified 10/27/19 15:28 duloxetine AdvReac Severe Suicidal Verified 10/27/19 15:28 etanercept [From Enbrel] AdvReac Severe Nausea/vomm Verified 10/27/19 15:28 iting/cramp s methotrexate AdvReac Severe N/V/Cramps Verified 10/27/19 15:27 NSAIDS (Non-Steroidal AdvReac Severe Anaphylaxis Verified 10/27/19 15:27 Anti-Inflamma prochlorperazine AdvReac Severe EPS Verified 10/27/19 15:27 pseudoephedrine AdvReac Severe Tachycardia Verified 10/27/19 15:27 sumatriptan AdvReac Severe Widened QRS Verified 10/27/19 15:27 doxycycline AdvReac Intermediate Hives Verified 10/27/19 15:27 gabapentin AdvReac Intermediate Gait Verified 10/27/19 15:27 disturbance latex AdvReac Intermediate Sensitivity Verified 10/27/19 15:27 morphine AdvReac Unknown Verified 10/27/19 15:27 prochlorperazine edisylate * AdvReac Unknown Verified 10/27/19 15:27 [From Compazine] prochlorperazine maleate * AdvReac Unknown Verified 10/27/19 15:27 [From Compazine] promethazine [From Phenergan] AdvReac Hallucinati Verified 10/27/19 15:27 ons - Social History Does the pt smoke?: Yes Smoking Status: Current every day smoker Does the pt drink ETOH?: Yes Does the pt have substance abuse?: No - Immunizations Immunizations are current?: Yes - POLST Patient has POLST: Yes POLST Status: DNR PD ED PE NORMAL - Vitals Vital signs reviewed: Yes - General General: Alert and oriented X 3, Well developed/nourished, Other (very conversant. Seems in pain at times. ) - HEENT HEENT: PERRL (nonicteric), Pharynx benign - Neck Neck: Supple, no meningeal sign, No adenopathy - Cardiac Cardiac: RRR, No murmur - Respiratory Respiratory: Clear bilaterally - Abdomen Abdomen: Normal bowel sounds, Soft, Non tender, Non distended - Derm Derm: Normal color, Warm and dry - Extremities Extremities: No tenderness to palpate. No: Normal ROM s pain (seems diffusely tender in joints. ) - Neuro Neuro: Alert and oriented X 3, boilermaker 2-12 intact, No motor deficit, No sensory deficit, Normal speech Results - Vitals Vitals: Vital Signs - 24 hr 11/08/19 11/08/19 11/08/19 12:38 13:38 15:00 Temperature 37.2 C Heart Rate 89 85 97 Respiratory 18 16 16 Rate Blood Pressure 144/81 H 135/84 H 154/90 H O2 Saturation 99 95 98 11/08/19 11/08/19 11/08/19 17:00 19:00 20:09 Temperature 36.8 C Heart Rate 82 85 86 Respiratory 16 16 16 Rate Blood Pressure 147/88 H 158/78 H 162/81 H O2 Saturation 98 98 98 Oxygen O2 Source [Without Activity] Room air O2 Source Room air - Labs Labs: Laboratory Tests 11/08/19 11/08/19 11/08/19 15:40 15:40 15:40 WBC 7.4 RBC 4.74 Hgb 13.3 Hct 41.9 MCV 88.4 MCH 28.1 MCHC 31.7 L RDW 18.5 H Plt Count 304 MPV 9.2 Neut # (Auto) 5.4 Lymph # (Auto) 1.2 L Callahan # (Auto) 0.6 Eos # (Auto) 0.1 Baso # (Auto) 0.0 Absolute Nucleated RBC 0.00 Nucleated RBC % 0.0 Sodium 139 Potassium 3.2 L Chloride 101 Carbon Dioxide 26 Anion Gap 12.0 BUN 10 Creatinine 0.4 Estimated GFR (MDRD) 161 Glucose 106 H Lactic Acid 1.1 Calcium 9.0 Magnesium 1.4 L Total Bilirubin 0.6 AST 14 ALT 15 Alkaline Phosphatase 107 C-Reactive Protein 4.2 H Total Protein 6.4 L Albumin 3.5 Globulin 2.9 Albumin/Globulin Ratio 1.2 Lipase 40 Salicylates < 6.0 Acetaminophen < 10 L - Rads (name of study) head CT Radiology: Prelim report reviewed (no acute process), See rad report thoracic CT Radiology: Prelim report reviewed (previously noted T12 fracture without change. No new fractures. ), See rad report Departure - Departure Disposition: 01 Home, Self Care Clinical Impression: General weakness, Diffuse arthralgia Cephalalgia Qualifiers: Headache type: unspecified Headache chronicity pattern: acute headache Intractability: not intractable Qualified Code(s): R51 - Headache Lower extremity cellulitis Qualifiers: Laterality: right Qualified Code(s): L03.115 - Cellulitis of right lower limb Condition: Stable Record reviewed to determine appropriate education?: Yes Instructions: ED Cephalgia Unspecified Follow-Up: Dariela Montiel PA [Primary Care Provider] - Prescriptions: dexAMETHasone [Decadron] 4 mg PO DAILY #7 tablet Mupirocin 1 applic TP TID #15 g Sulfamethox/Trimeth 800/160 [Bactrim Ds 800/160] 1 each PO BID #14 tablet Comments: Add dexamethasone steroid daily for the next 7 days. See if this works well for you as a alternative steroid and may be less upsetting to the stomach. Continue your usual medications including your pain medicine. Bactrim twice daily for a week for the leg infection and also mupirocin topical antibiotic to the sore twice daily as well. Follow-up with your primary care, call her tomorrow for further guidance on treatment. Discharge Date/Time: 11/08/19 20:16
[2019-11-08] MEDS ORDERED: HYDROmorphone 1 MG/ML CARPUJECT IVP STA ×2 (14:40→18:17)
[2019-11-08] MEDS ORDERED: MAGNESIUM SULFATE 2 GRAM 2 GM/50 ML BAG IV ONE (14:40)
[2019-11-08] MEDS ORDERED: DEXAMETHASONE 10 MG/ML VIAL IVP STA (14:41)
[2019-11-08] MEDS ORDERED: ONDANSETRON 4 MG/2 ML VIAL IVP STA (14:42)
[2019-11-08] MEDS ORDERED: LACTATED RINGERS 1,000 ML IV STA (14:43)
--- NOTE | 2019-11-08 15:32 | CT Report ---
Reason: headache for 2-3 weeks Procedure Date: 11/08/2019 Accession Number: [id number] / [id number] Procedure: CT - HEAD WO CPT Code: Final Report FULL RESULT: EXAM: CT HEAD EXAM DATE: 11/08/2019 03:09 PM. CLINICAL HISTORY: Headache for 2-3 weeks. COMPARISON: HEAD W/O 07/14/2019 3:45 PM. TECHNIQUE: Multiaxial CT images were obtained from the foramen magnum to the vertex. Reformats: Sagittal and coronal. IV contrast: None. In accordance with CT protocol optimization, one or more of the following dose reduction techniques were utilized for this exam: automated exposure control, adjustment of mA and/or KV based on patient size, or use of iterative reconstructive technique. FINDINGS: Parenchyma: No intraparenchymal hemorrhage. No evidence of mass, midline shift, or CT findings of acute infarction. Alvarenga-white differentiation is distinct. Extraaxial Spaces: Normal for age. No subdural or epidural collections identified. Ventricles: Normal in size and position. Sinuses and Orbits: Imaged paranasal sinuses, orbits, and mastoids show no significant abnormality. Bones: No evidence of fracture or calvarial defect. Other: None. IMPRESSION: No acute intracranial abnormality. RADIA
--- NOTE | 2019-11-08 15:43 | CT Report ---
Reason: increased lower thoracic pain x wks/to right ribs Procedure Date: 11/08/2019 Accession Number: [id number] / [id number] Procedure: CT - THORACIC SPINE WO CPT Code: Final Report FULL RESULT: EXAM: CT THORACIC SPINE WITHOUT CONTRAST EXAM DATE: 11/08/2019 03:09 PM. CLINICAL HISTORY: Increased lower thoracic pain x weeks/to right ribs. COMPARISONS: CHEST ANGIO 07/14/2019 3:49 PM. TECHNIQUE: Thin-section axial images were acquired of the thoracic spine from C7 to L1 without contrast. Post-processing: Coronal and sagittal reformats. Other: None. In accordance with CT protocol optimization, one or more of the following dose reduction techniques were utilized for this exam: automated exposure control, adjustment of mA and/or KV based on patient size, or use of iterative reconstructive technique. FINDINGS: Alignment: No scoliosis or spondylolisthesis. Bones: No acute bony abnormalities. Old moderate T12 compression fracture with anterior wedging. Fractures of several right ribs at the costovertebral junctions, with resulting degenerative sclerosis at the right seventh costovertebral function. Disk Levels/Facets: Endplate spurring, with anterolateral fusion on the right from T6-T10. Disk spaces preserved. No facet malalignment. Musculature: Normal. No fatty atrophy. Other: The visualized lungs, mediastinum, and abdominal cavity are unremarkable. IMPRESSION: 1. No acute thoracic spine abnormality, noting old compression fracture with moderate anterior wedging at T12. 2. Old fracture deformities of right posterior ribs at the costovertebral junctions, mid to lower thoracic spine, with significant resulting degenerative changes of the right seventh costovertebral junction. RADIA
[2019-11-08 15:54] LABS: BASOPHILS % (AUTO) 0.4 %; EOSINOPHILS # (AUTO) 0.1 10^3/uL (0.0-0.7); EOSINOPHILS % (AUTO) 1.3 %; HGB - HEMOGLOBIN 13.3 g/dL (12.0-16.0); LYMPHOCYTES # (AUTO) 1.2 10^3/uL (1.5-3.5); LYMPHOCYTES % (AUTO) 16.7 %; MEAN CORPUSCULAR HEMOGLOBIN 28.1 pg (27.0-31.0); MEAN CORPUSCULAR HGB CONC 31.7 g/dL (32.0-36.0); MEAN CORPUSCULAR VOLUME 88.4 fL (81.0-99.0); MEAN PLATELET VOLUME 9.2 fL (7.9-10.8); MONOCYTES # (AUTO) 0.6 10^3/uL (0.0-1.0); MONOCYTES % (AUTO) 7.6 %; NEUTROPHILS # (AUTO) 5.4 10^3/uL (1.5-6.6); NEUTROPHILS % (AUTO) 73.5 %; PLT - PLATELET COUNT 304 10^3/uL (130-450); RED BLOOD COUNT 4.74 10^6/uL (4.20-5.40); RED CELL DISTRIBUTION WIDTH 18.5 % (12.0-15.0); WHITE BLOOD COUNT 7.4 x10^3/uL (4.8-10.8)
[2019-11-08 16:19] LABS: ACETAMINOPHEN < 10 ug/mL (10-30); CRP - C-REACTIVE PROTEIN 4.2 mg/dL (0-1.0); SALICYLATE < 6.0 mg/dL
[2019-11-08 16:20] LABS: ALBUMIN 3.5 g/dL (3.2-5.5); ALBUMIN/GLOBULIN RATIO 1.2 (1.0-2.2); ALKALINE PHOSPHATASE 107 IU/L (42-121); ALT ALANINE AMINOTRANSFERASE 15 IU/L (10-60); AST ASPARTATE AMINOTRANSFERASE 14 IU/L (10-42); BILIRUBIN,TOTAL 0.6 mg/dL (0.2-1.0); BUN - BLOOD UREA NITROGEN 10 mg/dL (6-20); CARBON DIOXIDE - CO2 26 mmol/L (21-32); CHLORIDE 101 mmol/L (101-111); CREATININE 0.4 mg/dL (0.4-1.0); GLUCOSE 106 mg/dL (70-100); LIPASE 40 U/L (22-51); MAGNESIUM 1.4 mg/dL (1.7-2.8); SODIUM 139 mmol/L (135-145); TOTAL PROTEIN 6.4 g/dL (6.7-8.2)
[2019-11-08] MEDS ORDERED: MUPIROCIN 2% OINT 1 GM TOP STA (16:45)
[2019-11-08] MEDS ORDERED: SULFAMETH/TRIMETH DS 800/160 MG TABLET PO STA (16:46)
[2019-11-08] MEDS ORDERED: VANCOMYCIN INJ 1 GM in SODIUM CHLORIDE 0.9% 500 ML IV STA (16:46)
[2019-11-08] MEDS ORDERED: PANTOPRAZOLE 40 MG VIAL IVP STA (19:08)
[2019-11-08 20:10] VITALS: BP 162/81
== END 2019-11-08 20:16 | disposition home or self-care (01) ==
LOC: EDUNIT# → ED 12:30
DX: R51 Headache (principal); R53.1 Weakness; M25.50 Pain in unspecified joint; L03.115 Cellulitis of right lower limb; I10 Essential (primary) hypertension; E11.9 Type 2 diabetes mellitus without complications; Z79.84 Long term (current) use of oral hypoglycemic drugs; Z79.82 Long term (current) use of aspirin; F17.200 Nicotine dependence, unspecified, uncomplicated; Z66 Do not resuscitate
CPT/HCPCS: 36415; 70450; 72128; 80053; 83605; 83690; 83735; 85025; 86140; 93005; 96365; 96366; 96375; 99284; 99285; A9270; J1170; J3370; J7120; 80307; 80329

== ENCOUNTER 2019-12-30 14:06 | Emergency (ER) | payer MEDICARE ==
[2019-12-30] MEDS ORDERED: POTASSIUM CHLOR 10 MEQ/100 ML 10 MEQ/100 ML BAG IV STA (14:13)
[2019-12-30] MEDS ORDERED: CALCIUM GLUCONATE 2,000 MG in SODIUM CHLORIDE 0.9% 100ML 100 ML IV STA (14:13)
[2019-12-30] MEDS ORDERED: MAGNESIUM SULFATE 2 GRAM 2 GM/50 ML BAG IV ONE (14:13)
--- NOTE | 2019-12-30 15:47 | ED Physician Documentation ---
History of Present Illness - Stated complaint Stated Complaint: CRITICAL CALCIUM/POTASSIUM - Chief complaint Chief Complaint: General - History obtained from History obtained from: Patient - History of Present Illness Timing: Today Pain level max: 0 Pain level now: 0 - Additonal information Additional information: 64-year-old female presents to the emergency department afer being in the [facility] clinic today, receiving her normal magnesium infusion when she was told that her calcium was down to 6.4 and her potassium was 2.5. She states she has been feeling tired and rundown recently. Feeling weak and fatigued. Nothing makes it better or worse. No fevers. No vomiting. 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, Other : Incontinence HEENT: Chronic vision loss, Chronic sinusitis Psych: Depression, Anxiety, Obsessive compulsive disorder, Other Musculoskeletal: Osteoarthritis, Other Derm: Other - Past Surgical History Past Surgical History: Yes General: Cholecystectomy, Appendectomy, Bowel surgery, Other Ortho: Knee replacement /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, 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 Cardiovascular: Cardiac catheterization HEENT: Tonsil/Adenoidectomy - Present Medications Home Medications: Ambulatory Orders Medication Instructions Recorded Confirmed Aspirin [Aspirin EC] 650 mg PO 0800,1200,1600,199905/29/13 12/01/19 Metoprolol Tartrate 50 mg PO BID 05/29/13 12/01/19 Potassium Chloride 20 meq PO DAILY PRN 05/29/13 12/01/19 Glimepiride 1 mg PO QDBREAKFAST 03/03/17 12/01/19 Fluticasone [Flonase] 1 sprays MATT DAILY 11/26/17 12/01/19 Propylene Glycol/Peg 400/Pf 1 drops EACHEYE QID PRN 11/26/17 12/01/19 [Systane 0.3-0.4% Eye Drop] Timolol 0.5% Ophth Drops [Timoptic 1 drops EACHEYE BID 11/26/17 12/01/19 0.5% Ophth Drops] Esomeprazole Magnesium [Nexium] 40 mg PO DAILY 05/03/18 12/01/19 Saccharomyces Boulardii [Florastor] 250 mg PO DAILY 05/03/18 12/01/19 Cetirizine [ZyrTEC] 10 mg PO DAILY PM 09/06/18 12/01/19 predniSONE [Deltasone] 4 mg PO DAILY 09/06/18 12/01/19 Calcitonin [Fortical] 1 sprays MATT DAILY 10/25/18 12/01/19 Chlorhexidine Gluconate 15 ml MM DAILY 12/21/18 12/01/19 Ondansetron Odt [Zofran Odt] 4 mg PO TID 12/21/18 12/01/19 buPROPion HCL [Bupropion HCl Sr] 150 mg PO BID 12/21/18 12/01/19 Nystatin [Nystop] 1 applic TOP QID PRN #1 bottle 12/24/18 12/01/19 Ondansetron Odt [Zofran] 4 mg TL Q6H PRN #10 tablet 02/27/19 12/01/19 Mupirocin 1 applic TP TID #15 g 11/08/19 12/01/19 - Allergies Allergies/Adverse Reactions: Allergies Allergy/AdvReac Type Severity Reaction Status Date / Time droperidol [From Inapsine] Allergy Severe EPS Verified 12/30/19 14:22 ibuprofen [From Motrin] Allergy Severe Anaphylaxis Verified 12/30/19 14:22 peanut Allergy Severe Anaphylaxis Verified 12/30/19 14:22 shellfish derived Allergy Severe Anaphylaxis Verified 12/30/19 14:22 Bmtixsk-Zyi-Wgt Reductase Allergy Severe muscle pain Verified 12/30/19 14:22 Inhibitor amoxicillin [Amoxicillin] Allergy Intermediate Hives Verified 12/30/19 14:22 cefazolin Allergy Intermediate Hives Verified 12/30/19 14:22 Cephalosporins Allergy Intermediate Hives Verified 12/30/19 14:22 clindamycin Allergy Intermediate Hives Verified 12/30/19 14:22 cyclobenzaprine Allergy Intermediate Hives/night Verified 12/30/19 14:22 [Cyclobenzaprine] castaneda erythromycin base Allergy Intermediate Hives Verified 12/01/19 15:52 [Erythromycin Base] potassium clavulanate * Allergy Intermediate Hives Verified 12/01/19 15:52 [From Augmentin] ketorolac tromethamine * Allergy Anaphylaxis Verified 12/30/19 14:22 [From Toradol] adhesive tape AdvReac Severe BLISTERS Verified 12/30/19 14:22 duloxetine AdvReac Severe Suicidal Verified 12/30/19 14:22 etanercept [From Enbrel] AdvReac Severe Nausea/vomm Verified 12/30/19 14:22 iting/cramp s methotrexate AdvReac Severe N/V/Cramps Verified 12/30/19 14:22 NSAIDS (Non-Steroidal AdvReac Severe Anaphylaxis Verified 12/30/19 14:22 Anti-Inflamma prochlorperazine AdvReac Severe EPS Verified 12/30/19 14:22 pseudoephedrine AdvReac Severe Tachycardia Verified 12/30/19 14:22 sumatriptan AdvReac Severe Widened QRS Verified 12/30/19 14:22 doxycycline AdvReac Intermediate Hives Verified 12/30/19 14:22 gabapentin AdvReac Intermediate Gait Verified 12/30/19 14:22 disturbance latex AdvReac Intermediate Sensitivity Verified 12/30/19 14:22 morphine AdvReac Unknown Verified 12/30/19 14:22 prochlorperazine edisylate * AdvReac Unknown Verified 12/30/19 14:22 [From Compazine] prochlorperazine maleate * AdvReac Unknown Verified 12/30/19 14:22 [From Compazine] promethazine [From Phenergan] AdvReac Hallucinati Verified 12/30/19 14:22 ons - Social History Does the pt smoke?: Yes Smoking Status: Current every day smoker Does the pt drink ETOH?: Yes Does the pt have substance abuse?: No - Immunizations Immunizations are current?: Yes - POLST Patient has POLST: Yes POLST Status: DNR PD ED PE NORMAL - Vitals Vital signs reviewed: Yes - General General: Alert and oriented X 3, No acute distress, Well developed/nourished - HEENT HEENT: PERRL, Moist mucous membranes - Neck Neck: Supple, no meningeal sign - Cardiac Cardiac: RRR, Strong equal pulses - Respiratory Respiratory: No respiratory distress, Clear bilaterally - Abdomen Abdomen: Soft, Non tender, Non distended - Derm Derm: Warm and dry, No rash - Extremities Extremities: No edema - Neuro Neuro: Alert and oriented X 3 - Psych Psych: Normal mood, Normal affect Results - Vitals Vitals: Vital Signs - 24 hr 12/30/19 12/30/19 14:22 15:46 Temperature 36.6 C 36.7 C Heart Rate 65 65 Respiratory 16 16 Rate Blood Pressure 142/80 H 103/75 O2 Saturation 98 95 Oxygen O2 Source [] Room air O2 Source Room air - EKG (time done) 1455 Rate: Rate (enter#) (61) Rhythm: NSR [place]: Normal Intervals: Normal AL QRS: Normal Ischemia: Non specific changes - Labs Labs: Laboratory Tests 12/30/19 15:55 Sodium 140 Potassium 3.9 Chloride 102 Carbon Dioxide 26 Anion Gap 12.0 BUN 17 Creatinine 0.7 Estimated GFR (MDRD) 85 L Glucose 109 H Calcium 9.1 Total Bilirubin 0.7 AST 17 ALT 15 Alkaline Phosphatase 92 Total Protein 6.8 Albumin 4.4 Globulin 2.4 Albumin/Globulin Ratio 1.8 PD MEDICAL DECISION MAKING - ED course Complexity details: reviewed old records, reviewed results, re-evaluated patient, considered differential, d/w patient ED course: On repeat testing, the patient's laboratory values are normal. She will be discharged home at this time. No other complaints. Patient counseled regarding signs and symptoms for which I believe and urgent re-evaluation would be necessary. Patient with good understanding of and agreement to plan and is comfortable going home at this time This document was made in part using voice recognition software. While efforts are made to proofread this document, sound alike and grammatical errors may occur. Departure - Departure Disposition: Home, Self Care Clinical Impression: Encounter for medical screening examination Condition: Good Follow-Up: Dariela Montiel PA [Primary Care Provider] - Comments: Thankfully on repeat laboratory testing, your lab values are normal. Please follow-up with your doctor for further care as currently scheduled. Return if you worsen.
[2019-12-30 16:17] LABS: ALBUMIN 4.4 g/dL (3.2-5.5); ALBUMIN/GLOBULIN RATIO 1.8 (1.0-2.2); BILIRUBIN,TOTAL 0.7 mg/dL (0.2-1.0); CALCIUM 9.1 mg/dL (8.5-10.3); CREATININE 0.7 mg/dL (0.4-1.0); TOTAL PROTEIN 6.8 g/dL (6.7-8.2)
[2019-12-30 16:35] VITALS: BP 143/67
== END 2019-12-30 16:49 | disposition home or self-care (01) ==
LOC: ED 14:06
DX: Z03.89 Encounter for observation for other suspected diseases and conditions ruled out (principal); I10 Essential (primary) hypertension; E11.9 Type 2 diabetes mellitus without complications; F17.200 Nicotine dependence, unspecified, uncomplicated; Z79.84 Long term (current) use of oral hypoglycemic drugs; Z66 Do not resuscitate
CPT/HCPCS: 80053; 82330; 93005; 99284

== ENCOUNTER 2020-02-10 07:00 | Outpatient (CLI) | payer MEDICARE ==
[2020-02-10 14:13] LABS: CREATININE,URINE 101.4 mg/dL; MICROALBUM/CREATININE RATIO,UR 86.8 ug/mg (<30.0); MICROALBUMIN,URINE 8.8 mg/dL (0-300.0)
== END 2020-02-10 23:59 | disposition home or self-care (01) ==
LOC: LAB.R 07:00
PROVIDERS: ATTEND Nurse Practitioner Family
DX: E11.9 Type 2 diabetes mellitus without complications (principal)
CPT/HCPCS: 82043; 82570

== ENCOUNTER 2020-04-25 16:50 | Outpatient (CLI) | payer MEDICARE ==
--- NOTE | 2020-04-26 08:59 | Ultrasound Report ---
PROCEDURE: Abdomen Limited INDICATIONS: UMBILICAL HERNIA TECHNIQUE: Real-time focused scanning was performed of the abdomen, with image documentation. COMPARISON: None FINDINGS: To the left of the umbilicus there is a hernia with a neck measuring 3 cm. The hernia was not completely reducible but does not appear grossly incarcerated or strangulated. The patient was un able to lay in the supine position and perform Valsalva well and large body habitus technically limit ed the exam and further definition of the hernia. IMPRESSION: Left periumbilical hernia is seen with a 3 cm neck. Reviewed by: Abiodun Ramírez on 04/26/2020 8:58 AM PST Approved by: Abiodun Ramírez on 04/26/2020 8:58 AM PST Station ID: [id number]
== END 2020-04-25 16:51 | disposition home or self-care (01) ==
LOC: DI 16:50
PROVIDERS: ATTEND Nurse Practitioner Family
DX: K42.9 Umbilical hernia without obstruction or gangrene (principal)
CPT/HCPCS: 76705

== ENCOUNTER 2020-05-15 00:57 | Outpatient (CLI) | payer MEDICARE | END 2020-05-15 00:58 | disposition critical access hospital (66) | LOC: EMS 00:57 | PROVIDERS: ATTEND Surgery | DX: R10.32 Left lower quadrant pain (principal) | CPT/HCPCS: A0425; A0429 ==

== ENCOUNTER 2020-05-15 01:09 | Emergency (ER) | payer MEDICARE ==
--- NOTE | 2020-05-15 01:18 | ED Physician Documentation ---
PD HPI ABD PAIN - Stated complaint Stated Complaint: ABD PAIN - History obtained from History obtained from: Patient, EMS - History of Present Illness Timing - onset: Other (intermittent x months but became severe tonight) Pain level now: 8 Location: Periumbilical Improved by: Laying still Worsened by: Moving, Palpation Associated symptoms: Nausea, Constipation. No: Fever, Vomiting, Diarrhea Similar symptoms before: Diagnosis (hernia) Recently seen: Not recently seen - Additional information Additional information: BIBA for abdominal pain. She says she has recurrent abdominal pain due to hernia and is scheduled to see surgeon tomorrow (05/15). tonight the pain became severe and associated with nausea and urge to vomit but unable to do so, as well as no BM all day. recent outpatient US demonstrated periumbilical hernia with standing/valsalva. she has had multiple abdominal surgeries including abdominal abscess Review of Systems Constitutional: denies: Fever, Chills, Sweats Cardiac: reports: Reviewed and negative Respiratory: reports: Reviewed and negative GI: reports: Abdominal Pain, Abdominal Swelling, Nausea, Constipation. 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: Ovarian cysts, Other : Incontinence HEENT: Chronic vision loss, Chronic sinusitis Psych: Depression, Anxiety, Obsessive compulsive disorder, Other Musculoskeletal: Osteoarthritis, Other Derm: Other - Past Surgical History Past Surgical History: Yes General: Cholecystectomy, Appendectomy, Bowel surgery, Other Ortho: Knee replacement /RUBBERIZING MECHANIC: 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, Oophrectomy Cardiovascular: Cardiac catheterization HEENT: Tonsil/Adenoidectomy - Present Medications Home Medications: Ambulatory Orders Medication Instructions Recorded Confirmed Aspirin [Aspirin EC] 650 mg PO 0800,1200,1600,2000 05/29/13 03/02/20 Metoprolol Tartrate 50 mg PO BID 05/29/13 03/02/20 Glimepiride 1 mg PO QDBREAKFAST 03/03/17 03/02/20 Fluticasone [Flonase] 1 sprays MATT DAILY 11/26/17 03/02/20 Propylene Glycol/Peg 400/Pf 1 drops EACHEYE QID PRN 11/26/17 03/02/20 [Systane 0.3-0.4% Eye Drop] Timolol 0.5% Ophth Drops [Timoptic 1 drops EACHEYE BID 11/26/17 03/02/20 0.5% Ophth Drops] Esomeprazole Magnesium [Nexium] 40 mg PO DAILY 05/03/18 03/02/20 Saccharomyces Boulardii [Florastor] 250 mg PO DAILY 05/03/18 03/02/20 Cetirizine [ZyrTEC] 10 mg PO DAILY PM 09/06/18 03/02/20 predniSONE [Deltasone] 5 mg PO DAILY 09/06/18 03/02/20 Calcitonin [Fortical] 1 sprays MATT DAILY 10/25/18 03/02/20 Chlorhexidine Gluconate 15 ml MM DAILY 12/21/18 03/02/20 buPROPion HCL [Bupropion HCl Sr] 150 mg PO BID 12/21/18 03/02/20 Nystatin [Nystop] 1 applic TOP QID PRN #1 bottle 12/24/18 03/02/20 Ondansetron Odt [Zofran] 4 mg TL Q6H PRN #10 tablet 02/27/19 03/02/20 Mupirocin 1 applic TP TID #15 g 11/08/19 03/02/20 HYDROcod/ACETAM 5/325 [[place] 5/325] 1 tab PO TID PRN 01/12/20 03/02/20 Melatonin 5 mg SL QPM 03/02/20 03/02/20 - Allergies Allergies/Adverse Reactions: Allergies Allergy/AdvReac Type Severity Reaction Status Date / Time droperidol [From Inapsine] Allergy Severe EPS Verified 12/30/19 14:22 ibuprofen [From Motrin] Allergy Severe Anaphylaxis Verified 12/30/19 14:22 peanut Allergy Severe Anaphylaxis Verified 12/30/19 14:22 shellfish derived Allergy Severe Anaphylaxis Verified 12/30/19 14:22 Dbcdiht-Vrb-Odb Reductase Allergy Severe muscle pain Verified 12/30/19 14:22 Inhibitor amoxicillin [Amoxicillin] Allergy Intermediate Hives Verified 12/30/19 14:22 cefazolin Allergy Intermediate Hives Verified 12/30/19 14:22 Cephalosporins Allergy Intermediate Hives Verified 12/30/19 14:22 clindamycin Allergy Intermediate Hives Verified 12/30/19 14:22 cyclobenzaprine Allergy Intermediate Hives/night Verified 12/30/19 14:22 [Cyclobenzaprine] castaneda erythromycin base Allergy Intermediate Hives Verified 12/01/19 15:52 [Erythromycin Base] potassium clavulanate * Allergy Intermediate Hives Verified 12/01/19 15:52 [From Augmentin] ketorolac tromethamine * Allergy Anaphylaxis Verified 12/30/19 14:22 [From Toradol] adhesive tape AdvReac Severe BLISTERS Verified 12/30/19 14:22 duloxetine AdvReac Severe Suicidal Verified 12/30/19 14:22 etanercept [From Enbrel] AdvReac Severe Nausea/vomm Verified 12/30/19 14:22 iting/cramp s methotrexate AdvReac Severe N/V/Cramps Verified 12/30/19 14:22 NSAIDS (Non-Steroidal AdvReac Severe Anaphylaxis Verified 12/30/19 14:22 Anti-Inflamma prochlorperazine AdvReac Severe EPS Verified 12/30/19 14:22 pseudoephedrine AdvReac Severe Tachycardia Verified 12/30/19 14:22 sumatriptan AdvReac Severe Widened QRS Verified 12/30/19 14:22 doxycycline AdvReac Intermediate Hives Verified 12/30/19 14:22 gabapentin AdvReac Intermediate Gait Verified 12/30/19 14:22 disturbance latex AdvReac Intermediate Sensitivity Verified 12/30/19 14:22 morphine AdvReac Unknown Verified 12/30/19 14:22 prochlorperazine edisylate * AdvReac Unknown Verified 12/30/19 14:22 [From Compazine] prochlorperazine maleate * AdvReac Unknown Verified 12/30/19 14:22 [From Compazine] promethazine [From Phenergan] AdvReac Hallucinati Verified 12/30/19 14:22 ons - Social History Does the pt smoke?: Yes Smoking Status: Current every day smoker Does the pt drink ETOH?: Yes Does the pt have substance abuse?: No - Immunizations Immunizations are current?: Yes - POLST Patient has POLST: Yes POLST Status: DNR PD ED PE NORMAL - Vitals Vital signs reviewed: Yes - General General: Alert and oriented X 3, No acute distress, Well developed/nourished - HEENT HEENT: Moist mucous membranes - Cardiac Cardiac: RRR, No murmur - Respiratory Respiratory: No respiratory distress, Clear bilaterally - Abdomen Abdomen: Normal bowel sounds, Soft, Other (old midline surgical scar) - Derm Derm: Normal color, Warm and dry PD ED PE EXPANDED - Abdomen Abdomen: Distended, Tender to palpation (periumbilical tenderness without palpable mass/hernia). No: Rebound Results - Vitals Vitals: Vital Signs - 24 hr 05/15/20 05/15/20 05/15/20 01:09 03:32 05:00 Temperature 36.7 C Heart Rate 83 68 74 Respiratory 20 16 14 Rate Blood Pressure 150/92 H 137/72 H 122/74 O2 Saturation 99 97 100 Oxygen O2 Source [Without Activity] Room air O2 Source Room air - Labs Labs: Laboratory Tests 05/15/20 05/15/20 02:00 02:00 WBC 13.6 H RBC 5.21 Hgb 15.9 Hct 48.5 H MCV 93.1 MCH 30.5 MCHC 32.8 RDW 16.2 H Plt Count 376 MPV 9.1 Neut # (Auto) 10.9 H Lymph # (Auto) 1.5 [place] # (Auto) 1.0 Eos # (Auto) 0.1 Baso # (Auto) 0.1 Absolute Nucleated RBC 0.00 Nucleated RBC % 0.0 Sodium 141 Potassium 4.2 Chloride 100 L Carbon Dioxide 26 Anion Gap 15.0 H BUN 21 H Creatinine 0.7 Estimated GFR (MDRD) 84 L Glucose 130 H Calcium 10.1 Total Bilirubin 0.7 AST 18 ALT 19 Alkaline Phosphatase 123 H Total Protein 7.3 Albumin 4.3 Globulin 3.0 Albumin/Globulin Ratio 1.4 Lipase 39 - Rads (name of study) CT A/P with IV/PO contrast Radiology: Prelim report reviewed, See rad report PD MEDICAL DECISION MAKING - ED course Complexity details: reviewed results, re-evaluated patient, considered differential, d/w patient ED course: patient had taken 4mg PO zofran CORE SHAPER SIDES without improvement. In ED she was given 8mg IV zofran and 1mg dilaudid with significant improvement. She had a large BM shortly after receiving the dilaudid. CT interpreted by radiologist as "ventral hernia contains fat with mild induration". She was given second dose of 1mg IV dilaudid and then had another large BM and further relief of symptoms. She was no longer distended nor nauseas and was comfortable with d/c home, will f/u with surgeon later this morning as scheduled Departure - Departure Disposition: Home, Self Care Clinical Impression: Abdominal pain Qualifiers: Abdominal location: generalized Qualified Code(s): R10.84 - Generalized abdominal pain Condition: Good Instructions: ED Abdominal Pain Unkn Cause Comments: Follow up with your surgeon today as scheduled Discharge Date/Time: 05/15/20 05:10
[2020-05-15] MEDS ORDERED: ONDANSETRON 4 MG/2 ML VIAL IVP STA (01:47)
[2020-05-15] MEDS ORDERED: HYDROmorphone 1 MG/ML CARPUJECT IVP STA ×2 (01:47→03:33)
[2020-05-15] MEDS ORDERED: SODIUM CHLORIDE 0.9% 1,000 ML IV STA (01:47)
[2020-05-15] MEDS ORDERED: IOVERSOL 320 100 ML VIAL IVP ONE ×2 (02:02→03:43)
[2020-05-15] MEDS ORDERED: IOVERSOL 320 50 ML VIAL ONE (02:03)
[2020-05-15 02:07] LABS: BASOPHILS # (AUTO) 0.1 10^3/uL (0.0-0.1); BASOPHILS % (AUTO) 0.5 %; EOSINOPHILS # (AUTO) 0.1 10^3/uL (0.0-0.7); EOSINOPHILS % (AUTO) 0.9 %; HGB - HEMOGLOBIN 15.9 g/dL (12.0-16.0); LYMPHOCYTES # (AUTO) 1.5 10^3/uL (1.5-3.5); LYMPHOCYTES % (AUTO) 10.8 %; MEAN CORPUSCULAR HEMOGLOBIN 30.5 pg (27.0-31.0); MEAN CORPUSCULAR HGB CONC 32.8 g/dL (32.0-36.0); MEAN CORPUSCULAR VOLUME 93.1 fL (81.0-99.0); MEAN PLATELET VOLUME 9.1 fL (7.9-10.8); MONOCYTES % (AUTO) 7.2 %; NEUTROPHILS # (AUTO) 10.9 10^3/uL (1.5-6.6); NEUTROPHILS % (AUTO) 79.9 %; PLT - PLATELET COUNT 376 10^3/uL (130-450); RED BLOOD COUNT 5.21 10^6/uL (4.20-5.40); RED CELL DISTRIBUTION WIDTH 16.2 % (12.0-15.0); WHITE BLOOD COUNT 13.6 x10^3/uL (4.8-10.8)
[2020-05-15 02:20] LABS: ALBUMIN 4.3 g/dL (3.2-5.5); ALBUMIN/GLOBULIN RATIO 1.4 (1.0-2.2); BILIRUBIN,TOTAL 0.7 mg/dL (0.2-1.0); CALCIUM 10.1 mg/dL (8.5-10.3); CREATININE 0.7 mg/dL (0.4-1.0); TOTAL PROTEIN 7.3 g/dL (6.7-8.2)
[2020-05-15] MEDS ORDERED: IOVERSOL 320 50 ML VIAL PO ONE (03:44)
[2020-05-15 05:21] VITALS: BP 122/74
--- NOTE | 2020-05-15 08:22 | CT Report ---
PROCEDURE: Abdomen/Pelvis W INDICATIONS: Abdominal pain CONTRAST: IV CONTRAST: Optiray 320 ml: 100 PO CONTRAST: Optiray 320 ml500 TECHNIQUE: After the administration of contrast, 5 mm thick sections acquired from the diaphragms to the symphy sis. 5 mm thick coronal and sagittal reformats were acquired. For radiation dose reduction, the fol lowing was used: automated exposure control, adjustment of mA and/or kV according to patient size. COMPARISON: CT thoracic spine 11/08/2019; CT abdomen and pelvis 04/12/2019 FINDINGS: Image quality: Excellent. ABDOMEN: Lung bases: Lung bases are clear. Heart size is normal. Solid organs: Normal CT appearance of the liver, spleen, pancreas, adrenal glands, and kidneys. Statu s post cholecystectomy. Mildly dilated common duct, likely postcholecystectomy reservoir phenomenon. Peritoneum and bowel: There is no abnormally dilated or obviously thickened loop of bowel. Diffuse fl uid distention of the small and large bowel loops. Small bowel loops in the anterior central abdomen abut the anterior abdominal wall at the location of a fat-containing ventral hernia which has adjacen t inflammatory changes. Small bowel anastomosis noted on series 2 image 44-49. Nodes and vessels: No retroperitoneal or mesenteric adenopathy by size criteria. Aorta and inferior vena cava are normal in size. Miscellaneous: No ventral hernias. PELVIS: Genitourinary: Bladder wall thickness is normal. Miscellaneous: No inguinal hernias or adenopathy. Bones: Remote T12 compression fracture. No acute loss of vertebral body height identified.. IMPRESSION: Diffuse distention of the small and large bowel with fluid, nonspecific. No findings of obstruction. Ventral hernia containing fat with mild surrounding fat stranding. Correlate with any focal tendernes s. This is in the area of previous abscess and could represent recurrent infection. No significant change from preliminary report. Reviewed by: Sai Kapoor MD on 05/15/2020 8:21 AM PST Approved by: Sai Kapoor MD on 05/15/2020 8:21 AM PST Station ID: [id number]
== END 2020-05-15 05:10 | disposition home or self-care (01) ==
LOC: EDUNIT# → ED 01:09
DX: R10.84 Generalized abdominal pain (principal); R11.0 Nausea; K43.9 Ventral hernia without obstruction or gangrene; Z90.49 Acquired absence of other specified parts of digestive tract; I10 Essential (primary) hypertension; E11.9 Type 2 diabetes mellitus without complications; Z79.84 Long term (current) use of oral hypoglycemic drugs; Z79.82 Long term (current) use of aspirin; F17.200 Nicotine dependence, unspecified, uncomplicated; Z66 Do not resuscitate
CPT/HCPCS: 36415; 74177; 80053; 83690; 85025; 96361; 96374; 96376; 99284; J1170; Q9967

== ENCOUNTER 2021-08-03 12:20 | Emergency (ER) | payer MEDICARE ==
[2021-08-03] MEDS ORDERED: SODIUM CHLORIDE 0.9% 1,000 ML IV STA (13:01)
[2021-08-03] MEDS ORDERED: MAGNESIUM SULFATE 2 GRAM 2 GM/50 ML BAG IV ONE (13:01)
--- NOTE | 2021-08-03 13:02 | ED Physician Documentation ---
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 It was preceded by nausea which is now gone and she has some diarrhea with this. Alt stu that is not too distressing to her. She feels generally weak but denies fevers or chills. No blood in the diarrhea. No vomiting. 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: Ovarian cysts, Other : Incontinence HEENT: Chronic vision loss, Chronic sinusitis Psych: Depression, Anxiety, Obsessive compulsive disorder, Other Musculoskeletal: Osteoarthritis, Other Derm: Other - Past Surgical History Past Surgical History: Yes General: Cholecystectomy, Appendectomy, Bowel surgery, Other Ortho: Knee replacement /LEAD APPLICATION ARCHITECT: 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, Oophrectomy Cardiovascular: Cardiac catheterization HEENT: Tonsil/Adenoidectomy - Present Medications Home Medications: Ambulatory Orders Medication Instructions Recorded Confirmed Aspirin [Aspirin EC] 650 mg PO 0800,1200,1600,2000 05/29/13 06/20/21 Metoprolol Tartrate 50 mg PO BID 05/29/13 06/20/21 Glimepiride 1 mg PO QDBREAKFAST 03/03/17 06/20/21 Fluticasone [Flonase] 1 sprays MATT DAILY 11/26/17 06/20/21 Esomeprazole Magnesium [Nexium] 40 mg PO DAILY 05/03/18 06/20/21 Cetirizine [ZyrTEC] 10 mg PO DAILY PM 09/06/18 06/20/21 predniSONE [Deltasone] 5 mg PO DAILY 09/06/18 06/20/21 buPROPion HCL [Bupropion HCl Sr] 150 mg PO BID 12/21/18 06/20/21 Nystatin [Nystop] 1 applic TOP QID PRN #1 bottle 12/24/18 06/20/21 Melatonin 5 mg SL QPM 03/02/20 06/20/21 Dicyclomine [Bentyl] 1 - 2 tab PO QID PRN #20 cap 08/03/21 - Allergies Allergies/Adverse Reactions: Allergies Allergy/AdvReac Type Severity Reaction Status Date / Time droperidol [From Inapsine] Allergy Severe EPS Verified 06/20/21 14:05 ibuprofen [From Motrin] Allergy Severe Anaphylaxis Verified 06/20/21 14:05 peanut Allergy Severe Anaphylaxis Verified 06/20/21 14:05 shellfish derived Allergy Severe Anaphylaxis Verified 06/20/21 14:05 Fnwlhqc-EWT-KoT Reductase Allergy Severe muscle pain Verified 06/20/21 14:05 Inhibitor [Crkprbg-Foh-Fyh Reductase Inhibitor] amoxicillin [Amoxicillin] Allergy Intermediate Hives Verified 06/20/21 14:05 cefazolin Allergy Intermediate Hives Verified 06/20/21 14:05 Cephalosporins Allergy Intermediate Hives Verified 06/20/21 14:05 clindamycin Allergy Intermediate Hives Verified 06/20/21 14:05 cyclobenzaprine Allergy Intermediate Hives/night Verified 06/20/21 14:05 [Cyclobenzaprine] castaneda erythromycin base Allergy Intermediate Hives Verified 06/20/21 14:05 [Erythromycin Base] potassium clavulanate * Allergy Intermediate Hives Verified 06/20/21 14:05 [From Augmentin] ketorolac tromethamine * Allergy Anaphylaxis Verified 06/20/21 14:05 [From Toradol] adhesive tape AdvReac Severe BLISTERS Verified 06/20/21 14:05 duloxetine AdvReac Severe Suicidal Verified 06/20/21 14:05 etanercept [From Enbrel] AdvReac Severe Nausea/vomm Verified 06/20/21 14:05 iting/cramp s methotrexate AdvReac Severe N/V/Cramps Verified 08/03/21 12:29 NSAIDS (Non-Steroidal AdvReac Severe Anaphylaxis Verified 08/03/21 12:29 Anti-Inflamma prochlorperazine AdvReac Severe EPS Verified 08/03/21 12:29 pseudoephedrine AdvReac Severe Tachycardia Verified 08/03/21 12:29 sumatriptan AdvReac Severe Widened QRS Verified 08/03/21 12:29 doxycycline AdvReac Intermediate Hives Verified 08/03/21 12:29 gabapentin AdvReac Intermediate Gait Verified 08/03/21 12:29 disturbance latex AdvReac Intermediate Sensitivity Verified 08/03/21 12:29 morphine AdvReac Unknown Verified 08/03/21 12:29 prochlorperazine edisylate * AdvReac Unknown Verified 08/03/21 12:29 [From Compazine] prochlorperazine maleate * AdvReac Unknown Verified 08/03/21 12:29 [From Compazine] promethazine [From Phenergan] AdvReac Hallucinati Verified 08/03/21 12:29 ons - Social History Does the pt smoke?: Yes Smoking Status: Current every day smoker Does the pt drink ETOH?: Yes Does the pt have substance abuse?: No - Immunizations Immunizations are current?: Yes - POLST Patient has POLST: Yes POLST Status: DNR PD ED PE NORMAL - Vitals Vital signs reviewed: Yes - General General: Alert and oriented X 3, No acute distress - HEENT HEENT: PERRL, EOMI - Neck Neck: Supple, no meningeal sign, No bony TTP, No bruit - Cardiac Cardiac: RRR, No murmur - Respiratory Respiratory: No respiratory distress, Clear bilaterally - Abdomen Abdomen: Other (Multiple healed surgical scars, normal bowel sounds, slightly tender in the right lower quadrant without surgical signs) - Back Back: No CVA TTP, No spinal TTP - Derm Derm: Normal color, Warm and dry - Extremities Extremities: No edema, Other - Neuro Neuro: Alert and oriented X 3, Normal speech Results - Vitals Vitals: Vital Signs - 24 hr 08/03/21 08/03/21 08/03/21 12:23 12:46 14:32 Temperature 36 C L Heart Rate 86 Respiratory 24 22 20 Rate Blood Pressure 171/116 H O2 Saturation 95 08/03/21 15:32 Temperature 36.8 C Heart Rate 76 Respiratory 20 Rate Blood Pressure 132/94 H O2 Saturation 99 Oxygen O2 Source [Without Activity] Room air O2 Source Room air - Labs Labs: Laboratory Tests 08/03/21 08/03/21 08/03/21 13:30 13:30 13:36 WBC 6.5 RBC 4.97 Hgb 15.1 Hct 45.2 MCV 90.9 MCH 30.4 MCHC 33.4 RDW 15.6 H Plt Count 288 MPV 9.4 Neut # (Auto) 4.5 Lymph # (Auto) 1.2 L [place] # (Auto) 0.6 Eos # (Auto) 0.2 Baso # (Auto) 0.1 Absolute Nucleated RBC 0.00 Nucleated RBC % 0.0 Sodium 139 Potassium 3.6 Chloride 103 Carbon Dioxide 25 Anion Gap 11.0 BUN 11 Creatinine 0.7 Estimated GFR (MDRD) 84 L Glucose 130 H Calcium 9.3 Magnesium 1.5 L Total Bilirubin 0.6 AST 20 ALT 19 Alkaline Phosphatase 97 Total Protein 6.8 Albumin 4.0 Globulin 2.8 Albumin/Globulin Ratio 1.4 Lipase 53 H Urine Color LT. YELLOW Urine Clarity CLEAR Urine pH 6.0 Ur Specific [place] 1.010 Urine Protein NEGATIVE Urine Glucose (UA) NEGATIVE Urine Ketones NEGATIVE Urine Occult Blood NEGATIVE Urine Nitrite NEGATIVE Urine Bilirubin NEGATIVE Urine Urobilinogen 0.2 (NORMAL) Ur Leukocyte Esterase NEGATIVE Ur Microscopic Review NOT INDICATED Urine Culture Comments NOT INDICATED PD MEDICAL DECISION MAKING - ED course ED course: 66-year-old woman with multiple bowel surgeries presents with crampy intermittent abdominal pain, CT shows no acute findings. Presume she is having scar tissue with peristalsis. Every few minutes she has a few seconds worth of pain. She declined pain medications while here. She has chronic hypomagnesemia and this was repleted IV. Her level today is actually much better than usual for her albeit mildly low. 1. Stable postsurgical changes from prior small bowel resection. Redemonstration of mildly prominent small bowel loops in the anterior, central abdomen in close vicinity to ventral abdominal scar. No evidence for bowel obstruction proximally. 2. Small amount of inflammatory changes involving the inferior margins of the ventral abdominal scar. No organized fluid collection seen. Recommend clinical correlation for pain in the right side of the lower margins of the surgical scar. 3. Hepatic steatosis. Departure - Departure Disposition: 01 Home, Self Care Clinical Impression: Diarrhea, Hypomagnesemia, Abdominal pain Condition: Good Record reviewed to determine appropriate education?: Yes Instructions: ED Abdominal Pain Female Non-Specific Abdominal Pain Prescriptions: Dicyclomine [Bentyl] 1 - 2 tab PO QID PRN #20 cap PRN Reason: Abdominal Pain Comments: As discussed, your magnesium was only slightly low at 1.5. No evidence of bowel obstruction or any serious intra-abdominal pathology. I sent your prescriptions electronically to [facility]. Return for new or worsening symptoms. Follow-up with your primary care physician, next available appointment.
[2021-08-03] MEDS ORDERED: LIDOCAINE-MPF 1% 5 ML VIAL ONE (13:14)
[2021-08-03] MEDS ORDERED: LIDOCAINE 1%-EPI 1:100000 20 ML MDV SUBQ STA (13:16)
[2021-08-03] MEDS ORDERED: IOPAMIDOL-300 50 ML VIAL ONE (13:22)
[2021-08-03] MEDS ORDERED: IOVERSOL 320 100 ML VIAL IVP ONE ×2 (13:22→14:52)
[2021-08-03] MEDS ORDERED: ONDANSETRON 4 MG/2 ML VIAL IVP STA (13:46)
[2021-08-03 13:47] LABS: BASOPHILS # (AUTO) 0.1 10^3/uL (0.0-0.1); BASOPHILS % (AUTO) 0.9 %; EOSINOPHILS # (AUTO) 0.2 10^3/uL (0.0-0.7); EOSINOPHILS % (AUTO) 2.3 %; HCT - HEMATOCRIT 45.2 % (37.0-47.0); HGB - HEMOGLOBIN 15.1 g/dL (12.0-16.0); LYMPHOCYTES # (AUTO) 1.2 10^3/uL (1.5-3.5); LYMPHOCYTES % (AUTO) 18.6 %; MEAN CORPUSCULAR HEMOGLOBIN 30.4 pg (27.0-31.0); MEAN CORPUSCULAR HGB CONC 33.4 g/dL (32.0-36.0); MEAN CORPUSCULAR VOLUME 90.9 fL (81.0-99.0); MEAN PLATELET VOLUME 9.4 fL (7.9-10.8); MONOCYTES # (AUTO) 0.6 10^3/uL (0.0-1.0); MONOCYTES % (AUTO) 8.9 %; NEUTROPHILS # (AUTO) 4.5 10^3/uL (1.5-6.6); NEUTROPHILS % (AUTO) 68.2 %; PLT - PLATELET COUNT 288 10^3/uL (130-450); RED BLOOD COUNT 4.97 10^6/uL (4.20-5.40); RED CELL DISTRIBUTION WIDTH 15.6 % (12.0-15.0); WHITE BLOOD COUNT 6.5 x10^3/uL (4.8-10.8)
[2021-08-03 14:01] LABS: ALBUMIN/GLOBULIN RATIO 1.4 (1.0-2.2); BILIRUBIN,TOTAL 0.6 mg/dL (0.2-1.0); CALCIUM 9.3 mg/dL (8.5-10.3); CREATININE 0.7 mg/dL (0.4-1.0); MAGNESIUM 1.5 mg/dL (1.7-2.8); POTASSIUM 3.6 mmol/L (3.5-5.0); TOTAL PROTEIN 6.8 g/dL (6.7-8.2)
[2021-08-03] MEDS ORDERED: IOPAMIDOL-300 50 ML VIAL PO ONE (14:52)
[2021-08-03 15:33] VITALS: BP 132/94
--- NOTE | 2021-08-03 15:34 | CT Report ---
PROCEDURE: Abdomen/Pelvis W INDICATIONS: IV / PO abd pain CONTRAST: IV CONTRAST: Optiray 320 ml: 100 PO CONTRAST: Isovue 300 ml50 TECHNIQUE: After the administration of weight appropriate dose of intravenous contrast contrast, 5 mm thick sect ions acquired from the diaphragms to the symphysis. 5 mm thick coronal and sagittal reformats were a cquired. For radiation dose reduction, the following was used: automated exposure control, adjustme nt of mA and/or kV according to patient size. COMPARISON: 05/15/2020 FINDINGS: Image quality: Excellent. ABDOMEN: Lung bases: Lung bases are clear. Heart size is normal. Solid organs: Liver and spleen are normal in size and enhancement. Diffuse hepatic steatosis. Gallbl adder is surgically absent. Biliary system is non dilated. Pancreas enhances normally. No adrenal nodules. Kidneys demonstrate normal size and enhancement, without hydronephrosis. Peritoneum and bowel: Stable postsurgical changes of the abdomen with surgical anastomotic suture li ne noted in the midline abdomen slightly above the level of the umbilicus. There are few prominent lo ops of small bowel noted in the anterior aspect of the mid to lower abdominal wall in close to the ve ntral abdominal surgical scar. No evidence for obstruction proximally. There is mild subcutaneous sof t tissue inflammation involving the inferior margins of the surgical scar, right side of the abdomina l incision scar. Oral contrast is noted distal to these segments. Overall, this appears similar to co mparison study. No free air or free fluid. Nodes and vessels: No retroperitoneal or mesenteric adeno amadou by size criteria. Aorta and inferior vena cava are normal in size. Miscellaneous: No ventral hernias. PELVIS: Genitourinary: Bladder wall thickness is normal. Miscellaneous: No inguinal hernias or adenopathy. Bones: No suspicious bony lesions. No acute vertebral body compression fractures. Stable chronic a nterior compression fracture of T12. Stable anterolisthesis of L4 on L5. IMPRESSION: 1. Stable postsurgical changes from prior small bowel resection. Redemonstration of mildly prominent small bowel loops in the anterior, central abdomen in close vicinity to ventral abdominal scar. No ev idence for bowel obstruction proximally. 2. Small amount of inflammatory changes involving the inferior margins of the ventral abdominal scar. No organized fluid collection seen. Recommend clinical correlation for pain in the right side of the lower margins of the surgical scar. 3. Hepatic steatosis. Reviewed by: Gage Marino MD on 08/03/2021 3:32 PM PST Approved by: Gage Marino MD on 08/03/2021 3:32 PM PST Station ID: [id number]
[2021-08-03 15:40] LABS: BILIRUBIN,URINE NEGATIVE (NEGATIVE); GLUCOSE, URINE (UA) NEGATIVE (NEGATIVE); KETONES,URINE (UA) NEGATIVE (NEGATIVE); LEUKOCYTE ESTERASE, URINE NEGATIVE (NEGATIVE); NITRITE,URINE NEGATIVE (NEGATIVE); OCCULT BLOOD,URINE NEGATIVE (NEGATIVE); PROTEIN,URINE NEGATIVE (NEGATIVE); UROBILINOGEN,URINE 0.2 (NORMAL) E.U./dL (NORMAL)
[2021-08-03 15:47] LABS: CLARITY,URINE CLEAR (CLEAR)
[2021-08-03] MEDS ORDERED: DICYCLOMINE 10 MG CAPSULE PO STA (15:53)
== END 2021-08-03 16:41 | disposition home or self-care (01) ==
LOC: ED 12:20
DX: E83.42 Hypomagnesemia (principal); R10.31 Right lower quadrant pain; R19.7 Diarrhea, unspecified; E11.9 Type 2 diabetes mellitus without complications; Z79.84 Long term (current) use of oral hypoglycemic drugs; I11.0 Hypertensive heart disease with heart failure; I50.9 Heart failure, unspecified; F17.200 Nicotine dependence, unspecified, uncomplicated
CPT/HCPCS: 36415; 74177; 80053; 81003; 83690; 83735; 85025; 96372; 96374; 96375; 99284; 99285; A9270; Q9967; 81001; 87086

== ENCOUNTER 2021-08-15 11:47 | Outpatient (CLI) | payer MEDICARE ==
[2021-08-15 12:21] LABS: CHOL/HDL RATIO 7.8 (<4.4); CHOLESTEROL 297 mg/dL; HDL CHOLESTEROL 38 mg/dL; TRIGLYCERIDES 468 mg/dL
[2021-08-15 12:53] LABS: ESTIMATED AVERAGE GLUCOSE 140 mg/dL (70-100); HEMOGLOBIN A1c% 6.5 % (4.27-6.07)
[2021-08-15 13:02] LABS: LDL CHOLESTEROL,DIRECT 179 mg/dL; LDLD/HDL RATIO 4.7 (<4.4)
[2021-08-15 14:09] LABS: CREATININE,URINE 147.8 mg/dL; MICROALBUM/CREATININE RATIO,UR 71.7 ug/mg (<30.0); MICROALBUMIN,URINE 10.6 mg/dL (0-300.0)
== END 2021-08-15 11:48 | disposition home or self-care (01) ==
LOC: LAB 11:47
PROVIDERS: ATTEND Nurse Practitioner Family
DX: E11.9 Type 2 diabetes mellitus without complications (principal); E78.5 Hyperlipidemia, unspecified
CPT/HCPCS: 36415; 80061; 82043; 82570; 83036; 83721

== ENCOUNTER 2021-10-03 09:44 | Outpatient (CLI) | payer MEDICARE ==
--- NOTE | 2021-10-04 11:49 | DEXA Report ---
PROCEDURE: Dexa Spine and/or Hip INDICATIONS: POST MENOPAUSAL TECHNIQUE: Dual energy x-ray absorptiometry (DXA) was performed on a Pick1 System. Regions measur ed are the AP Spine, femoral neck, and if needed forearm. COMPARISON: 11/20/2016. FINDINGS: Lumbar Spine: Bone Mineral Density 1.090 g/cm/cm,T score -0.7, lower limits of normal, improved from -1.2 on the prior study. Left Hip: Bone Mineral Density 1.0-3 g/cm/cm,T score 0.1, within normal limits but decreased from 1.3 previous ly. Left Femoral Neck: Bone Mineral Density 0.968 g/cm/cm, T score -0.5, lower limits of normal but decreased from 0.4 prev iously. (T score greater or equal to -1.0: NORMAL) (T score from -1.1 to -2.4: OSTEOPENIA) (T score less than or equal to -2.5 to: OSTEOPOROSIS) Impression: 1. Bone mineral density in the lumbar spine and left femoral neck at the lower limits of normal. Dens ity has slightly decreased in the left hip and left femoral neck compared to the prior study. Patients with diagnosis of osteoporosis or osteopenia should have regular bone mineral density assess ment. For those eligible for Medicare, routine testing is allowed once every 2 years. Testing frequ ency can be increased for patients who have rapidly progressing disease or for those who are receivin g medical therapy to restore bone mass. Reviewed by: Jun Armenta MD on 10/04/2021 11:47 AM PDT Approved by: uJn Armenta MD on 10/04/2021 11:47 AM PDT Station ID: [id number]
== END 2021-10-03 09:45 | disposition home or self-care (01) ==
LOC: DI 09:44
PROVIDERS: ATTEND Nurse Practitioner Family
DX: Z78.0 Asymptomatic menopausal state (principal)

== ENCOUNTER 2021-10-19 13:38 | Emergency (ER) | payer MEDICARE ==
--- NOTE | 2021-10-19 14:49 | XRAY Report ---
PROCEDURE: Chest 1 View X-Ray INDICATIONS: Cough TECHNIQUE: One view of the chest was acquired. COMPARISON: Chest x-ray one view, 02/27/2019 FINDINGS: Surgical changes and devices: There is a Port-A-Cath on the left with the tip projecting to the area of SVC. Lungs and pleura: Chronic interstitial prominence appears unchanged. No focal infiltrate or pleural effusion. No pneumothorax. Mediastinum: Mediastinal contours appear normal. Heart size is normal. Bones and chest wall: Surgical screws in the right humeral head. No suspicious bony lesions. Overlyi ng soft tissues appear unremarkable. IMPRESSION: No acute cardiopulmonary disease. Reviewed by: Jw Smart MD on 10/19/2021 1:47 PM AKDT Approved by: Jw Smart MD on 10/19/2021 1:47 PM AKDT Station ID: [id number]
[2021-10-19] MEDS ORDERED: BENZONATATE 100 MG CAPSULE PO STA (15:21)
[2021-10-19] MEDS ORDERED: IPRATROPIUM/ALBUTEROL 3 ML NEB INH STA (15:21)
[2021-10-19] MEDS ORDERED: HYDROcod/ACETAM 5/325 MG TABLET PO STA (15:21)
--- NOTE | 2021-10-19 15:24 | ED Physician Documentation ---
PD HPI DYSPNEA - Stated complaint Stated Complaint: SOA/CHEST PAIN - Chief complaint Chief Complaint: Resp - History obtained from History obtained from: Patient - Additional information Additional information: 66-year-old woman with history of longstanding tobacco abuse disorder, CHF presents with 2 weeks of cough which became particularly bad today with coughing fits. It is nonproductive and there is no hemoptysis. She does have mild pedal edema with it. No chest pain except for the cough associated chest pain. She is short of breath. No fevers. She took a home COVID test today that was negative. 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: Ovarian cysts, Other : Incontinence HEENT: Chronic vision loss, Chronic sinusitis Psych: Depression, Anxiety, Obsessive compulsive disorder, Other Musculoskeletal: Osteoarthritis, Other Derm: Other - Past Surgical History Past Surgical History: Yes General: Cholecystectomy, Appendectomy, Bowel surgery, Other Ortho: Knee replacement /DEMOGRAPHIC ANALYST: 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, Oophrectomy Cardiovascular: Cardiac catheterization HEENT: Tonsil/Adenoidectomy - Present Medications Home Medications: Ambulatory Orders Medication Instructions Recorded Confirmed Aspirin [Aspirin EC] 650 mg PO 0800,1200,1600,199905/29/13 08/08/21 Metoprolol Tartrate 50 mg PO BID 05/29/13 08/08/21 Glimepiride 1 mg PO QDBREAKFAST 03/03/17 08/08/21 Fluticasone [Flonase] 1 sprays MATT DAILY 11/26/17 08/08/21 Esomeprazole Magnesium [Nexium] 40 mg PO DAILY 05/03/18 08/08/21 Cetirizine [ZyrTEC] 10 mg PO DAILY PM 09/06/18 08/08/21 predniSONE [Deltasone] 5 mg PO DAILY 09/06/18 08/08/21 buPROPion HCL [Bupropion HCl Sr] 150 mg PO BID 12/21/18 08/08/21 Nystatin [Nystop] 1 applic TOP QID PRN #1 bottle 12/24/18 08/08/21 Melatonin 5 mg SL QPM 03/02/20 08/08/21 Dicyclomine [Bentyl] 1 - 2 tab PO QID PRN #20 cap 08/03/21 08/08/21 Albuterol Sulf [Ventolin Hfa 1 - 2 puffs INH Q4HR PRN #1 inhaler 10/19/21 Inhaler] Benzonatate [Tessalon] 200 mg PO QID PRN #20 cap 10/19/21 HYDROcod/ACETAM 5/325 [Stan[place] 5/325] 1 - 2 tab PO Q6H PRN #15 tablet 10/19/21 predniSONE [Deltasone] 40 mg PO DAILY 5 Days #10 tablet 10/19/21 - Allergies Allergies/Adverse Reactions: Allergies Allergy/AdvReac Type Severity Reaction Status Date / Time droperidol [From Inapsine] Allergy Severe EPS Verified 10/19/21 13:47 ibuprofen [From Motrin] Allergy Severe Anaphylaxis Verified 10/19/21 13:47 peanut Allergy Severe Anaphylaxis Verified 10/19/21 13:47 shellfish derived Allergy Severe Anaphylaxis Verified 10/19/21 13:47 Mapmzmh-DPT-SyX Reductase Allergy Severe muscle pain Verified 10/19/21 13:47 Inhibitor [Rygpejb-Qnv-Hwn Reductase Inhibitor] amoxicillin [Amoxicillin] Allergy Intermediate Hives Verified 10/19/21 13:47 cefazolin Allergy Intermediate Hives Verified 10/19/21 13:47 Cephalosporins Allergy Intermediate Hives Verified 10/19/21 13:47 clindamycin Allergy Intermediate Hives Verified 10/19/21 13:47 cyclobenzaprine Allergy Intermediate Hives/night Verified 10/19/21 13:47 [Cyclobenzaprine] castaneda erythromycin base Allergy Intermediate Hives Verified 10/19/21 13:47 [Erythromycin Base] potassium clavulanate * Allergy Intermediate Hives Verified 10/19/21 13:47 [From Augmentin] ketorolac tromethamine * Allergy Anaphylaxis Verified 10/19/21 13:47 [From Toradol] adhesive tape AdvReac Severe BLISTERS Verified 10/19/21 13:47 duloxetine AdvReac Severe Suicidal Verified 10/19/21 13:47 etanercept [From Enbrel] AdvReac Severe Nausea/vomm Verified 10/19/21 13:47 iting/cramp s methotrexate AdvReac Severe N/V/Cramps Verified 10/19/21 13:47 NSAIDS (Non-Steroidal AdvReac Severe Anaphylaxis Verified 10/19/21 13:47 Anti-Inflamma prochlorperazine AdvReac Severe EPS Verified 10/19/21 13:47 pseudoephedrine AdvReac Severe Tachycardia Verified 10/19/21 13:47 sumatriptan AdvReac Severe Widened QRS Verified 10/19/21 13:47 doxycycline AdvReac Intermediate Hives Verified 10/19/21 13:47 gabapentin AdvReac Intermediate Gait Verified 10/19/21 13:47 disturbance latex AdvReac Intermediate Sensitivity Verified 10/19/21 13:47 morphine AdvReac Unknown Verified 10/19/21 13:47 prochlorperazine edisylate * AdvReac Unknown Verified 10/19/21 13:47 [From Compazine] prochlorperazine maleate * AdvReac Unknown Verified 10/19/21 13:47 [From Compazine] promethazine [From Phenergan] AdvReac Hallucinati Verified 10/19/21 13:47 ons - Social History Does the pt smoke?: Yes Smoking Status: Current every day smoker Does the pt drink ETOH?: Yes Does the pt have substance abuse?: No - Immunizations Immunizations are current?: Yes - POLST Patient has POLST: Yes POLST Status: DNR PD ED PE NORMAL - Vitals Vital signs reviewed: Yes - General General: Alert and oriented X 3, Other (Frequent bronchitic coughing, nonlabored breathing when she is not coughing) - Cardiac Cardiac: RRR, No murmur - Respiratory Respiratory: No respiratory distress, Clear bilaterally - Abdomen Abdomen: Non tender - Back Back: No CVA TTP, No spinal TTP - Derm Derm: Normal color, Warm and dry - Extremities Extremities: Other (Trace pitting pedal edema, nontender) - Neuro Neuro: Alert and oriented X 3, Normal speech Results - Vitals Vitals: Vital Signs - 24 hr 10/19/21 10/19/21 10/19/21 13:44 13:47 15:47 Temperature 36.4 C L 36.5 C Heart Rate 85 85 80 Respiratory 20 20 20 Rate Blood Pressure 169/70 H 169/70 H O2 Saturation 98 98 10/19/21 10/19/21 16:34 16:44 Temperature Heart Rate 67 67 Respiratory 22 22 Rate Blood Pressure 173/94 H 173/94 H O2 Saturation 97 97 Oxygen O2 Source [] Room air O2 Source Room air - EKG (time done) 1612 Rate: Rate (enter#) (61) Rhythm: NSR Cutler: LAD Intervals: Normal [place] QRS: Normal Ischemia: No: ST elevation c/w ischemia, ST depression - Rads (name of study) 1v CXR Radiology: EMP read contemporaneously PD MEDICAL DECISION MAKING - ED course ED course: 66-year-old woman with bronchitis. Lungs and sound too bad but she was feeling much better after the administration of a DuoNeb here. She did have chest pain with it but an EKG was nonischemic and given the history, pretest probability for ACS is all but 0. Antibiotics were considered given her likely underlying COPD, that said she is allergic to pretty much all of them. Given lack of fever and unremarkable single view chest x-ray, this is likely inconsequential. Departure - Departure Disposition: Home, Self Care Condition: Good Record reviewed to determine appropriate education?: Yes Instructions: ED Bronchitis Asthmatic Prescriptions: Albuterol Sulf [Ventolin Hfa Inhaler] 1 - 2 puffs INH Q4HR PRN #1 inhaler PRN Reason: Shortness Of Air/Wheezing predniSONE [Deltasone] 40 mg PO DAILY 5 Days #10 tablet HYDROcod/ACETAM 5/325 [Stanley 5/325] 1 - 2 tab PO Q6H PRN #15 tablet PRN Reason: Pain Benzonatate [Tessalon] 200 mg PO QID PRN #20 cap PRN Reason: Cough Comments: I sent your prescriptions electronically to [facility] in [place]. Please return for new or worsening symptoms. Follow-up with your doctor middle of the week for recheck. I am prescribing a short course of narcotic pain medication for you. These are potentially dangerous and addictive medications that should be used carefully. These medications may constipate you. Take an ypqi-nsr-sokttxl stool softener (docusate) twice daily with plenty of water while taking these medications. If you go 24 hours without a bowel movement, take ijzc-nfr-fttfvia miralax, per package instructions. Do not drink or drive while taking these medications. If you received narcotic or sedating medications while in the emergency department, do not drive for 24 hours. Store this medication in a safe, secure place and out of reach of children. It is a violation of federal law to give or sell this medication to another person or to use in a manner other than prescribed. The ED will not refill narcotic prescriptions, including prescriptions lost or stolen. To dispose of unwanted medications: 1. [facility] [address] in [place] has a medication drop box. They accept prescription medications (in pill form) Thursday through Thursday 9:00 a.m. to 5:00 p.m. 2. The [facility] [employer] accepts prescription medications (in pill form only) for disposal year round. Call for more information. 3. Contact the [facility] for the next [facility] sponsored prescription d rug collection event. , [phone], or [phone]; Note that many narcotic pain relievers also contain Tylenol/acetaminophen. Please ensure that your total dose of acetaminophen from all sources does not exceed 3 g (3000 mg) per day.
[2021-10-19 16:36] VITALS: BP 173/94
== END 2021-10-19 16:45 | disposition home or self-care (01) ==
LOC: ED 13:38
DX: J40 Bronchitis, not specified as acute or chronic (principal); R07.9 Chest pain, unspecified; E11.9 Type 2 diabetes mellitus without complications; Z72.0 Tobacco use; I10 Essential (primary) hypertension; Z66 Do not resuscitate; Z79.84 Long term (current) use of oral hypoglycemic drugs
CPT/HCPCS: 71045; 93005; 94640; 94664; 99284; A9270

== ENCOUNTER 2021-11-25 11:38 | Outpatient (CLI) | payer MEDICARE | END 2021-11-25 11:39 | disposition critical access hospital (66) | LOC: EMS 11:38 | DX: R42 Dizziness and giddiness (principal); R11.0 Nausea; R19.7 Diarrhea, unspecified; R53.83 Other fatigue; R10.31 Right lower quadrant pain; R10.32 Left lower quadrant pain; R51.9 Headache, unspecified | CPT/HCPCS: A0425; A0427 ==

== ENCOUNTER 2021-11-25 11:50 | Emergency (ER) | payer MEDICARE ==
[2021-11-25] MEDS ORDERED: SODIUM CHLORIDE 0.9% 1,000 ML IV STA (12:06)
[2021-11-25] MEDS ORDERED: DICYCLOMINE 10 MG CAPSULE PO STA (12:06)
[2021-11-25] MEDS ORDERED: LOPERAMIDE 2 MG CAPSULE PO STA (12:06)
[2021-11-25] MEDS ORDERED: ONDANSETRON 4 MG/2 ML VIAL IVP STA ×2 (12:06→16:50)
--- NOTE | 2021-11-25 12:06 | ED Physician Documentation ---
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 She is a complicated medical history including CHF, type 2 diabetes, hypertension, chronic diarrhea, and longstanding tobacco abuse. She was diagnosed with a UTI last Thursday, a week ago. She was started on Macrobid. She started to develop some diarrhea but it really was not too bad until 3 days ago when it became profuse. Then it became associated with nausea and abdominal cramps. She does not think it is C. 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 Every time she tries to eat or drink anything it goes straight through her with profuse orangey diarrhea and lacking blood. She is cramps but no pain per se. Denies fevers but has had chills and sweats. No sick contacts. Review of Systems Ten Systems: 10 systems reviewed and negative Constitutional: reports: Chills, Sweats Ears: denies: Loss of hearing Nose: denies: Rhinorrhea / runny nose Cardiac: denies: Chest pain / pressure Respiratory: denies: Dyspnea GI: reports: Abdominal Pain, Nausea, Diarrhea. denies: Vomiting PD PAST MEDICAL HISTORY - Past Medical History Cardiovascular: Congestive heart failure, Hypertension Respiratory: Other Neuro: None, Headaches Endocrine/Autoimmune: Type 2 diabetes, Other GI: GERD, Colon polyps, Chronic diarrhea, Other CURATOR OF COLLECTIONS: Ovarian cysts, Other : Incontinence HEENT: Chronic vision loss, Chronic sinusitis Psych: Depression, Anxiety, Obsessive compulsive disorder, Other Musculoskeletal: Osteoarthritis, Other Derm: Other - Past Surgical History Past Surgical History: Yes General: Cholecystectomy, Appendectomy, Bowel surgery, Other Ortho: Knee replacement /CURATOR OF COLLECTIONS: 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, Oophrectomy Cardiovascular: Cardiac catheterization HEENT: Tonsil/Adenoidectomy - Present Medications Home Medications: Ambulatory Orders Medication Instructions Recorded Confirmed Aspirin [Aspirin EC] 650 mg PO 0800,1200,1600,2000 05/29/13 08/08/21 Metoprolol Tartrate 50 mg PO BID 05/29/13 08/08/21 Glimepiride 1 mg PO QDBREAKFAST 03/03/17 08/08/21 Fluticasone [Flonase] 1 sprays MATT DAILY 11/26/17 08/08/21 Esomeprazole Magnesium [Nexium] 40 mg PO DAILY 05/03/18 08/08/21 Cetirizine [ZyrTEC] 10 mg PO DAILY PM 09/06/18 08/08/21 predniSONE [Deltasone] 5 mg PO DAILY 09/06/18 08/08/21 buPROPion HCL [Bupropion HCl Sr] 150 mg PO BID 12/21/18 08/08/21 Nystatin [Nystop] 1 applic TOP QID PRN #1 bottle 12/24/18 08/08/21 Melatonin 5 mg SL QPM 03/02/20 08/08/21 Dicyclomine [Bentyl] 1 - 2 tab PO QID PRN #20 cap 08/03/21 08/08/21 Albuterol Sulf [Ventolin Hfa 1 - 2 puffs INH Q4HR PRN #1 inhaler 10/19/21 Inhaler] Benzonatate [Tessalon] 200 mg PO QID PRN #20 cap 10/19/21 HYDROcod/ACETAM 5/325 [[place] 5/325] 1 - 2 tab PO Q6H PRN #15 tablet 10/19/21 predniSONE [Deltasone] 40 mg PO DAILY 5 Days #10 tablet 10/19/21 Nitrofurantoin [Macrobid] 100 mg PO BID #14 cap 11/18/21 - Allergies Allergies/Adverse Reactions: Allergies Allergy/AdvReac Type Severity Reaction Status Date / Time droperidol [From Inapsine] Allergy Severe EPS Verified 11/25/21 12:09 ibuprofen [From Motrin] Allergy Severe Anaphylaxis Verified 11/25/21 12:09 peanut Allergy Severe Anaphylaxis Verified 11/25/21 12:09 shellfish derived Allergy Severe Anaphylaxis Verified 11/25/21 12:09 Lnekros-TNC-UuO Reductase Allergy Severe muscle pain Verified 11/25/21 12:09 Inhibitor [Nhdsdgz-Lqu-Xhq Reductase Inhibitor] amoxicillin [Amoxicillin] Allergy Intermediate Hives Verified 11/25/21 12:09 cefazolin Allergy Intermediate Hives Verified 11/25/21 12:09 Cephalosporins Allergy Intermediate Hives Verified 11/25/21 12:09 clindamycin Allergy Intermediate Hives Verified 11/25/21 12:09 cyclobenzaprine Allergy Intermediate Hives/night Verified 11/25/21 12:09 [Cyclobenzaprine] castaneda erythromycin base Allergy Intermediate Hives Verified 11/25/21 12:09 [Erythromycin Base] potassium clavulanate * Allergy Intermediate Hives Verified 11/25/21 12:09 [From Augmentin] ketorolac tromethamine * Allergy Anaphylaxis Verified 11/25/21 12:09 [From Toradol] adhesive tape AdvReac Severe BLISTERS Verified 11/25/21 12:09 duloxetine AdvReac Severe Suicidal Verified 11/25/21 12:09 etanercept [From Enbrel] AdvReac Severe Nausea/vomm Verified 11/25/21 12:09 iting/cramp s methotrexate AdvReac Severe N/V/Cramps Verified 11/25/21 12:09 NSAIDS (Non-Steroidal AdvReac Severe Anaphylaxis Verified 11/25/21 12:09 Anti-Inflamma prochlorperazine AdvReac Severe EPS Verified 11/25/21 12:09 pseudoephedrine AdvReac Severe Tachycardia Verified 11/25/21 12:09 sumatriptan AdvReac Severe Widened QRS Verified 11/25/21 12:09 doxycycline AdvReac Intermediate Hives Verified 11/25/21 12:09 gabapentin AdvReac Intermediate Gait Verified 11/25/21 12:09 disturbance latex AdvReac Intermediate Sensitivity Verified 11/25/21 12:09 morphine AdvReac Unknown Verified 11/25/21 12:09 prochlorperazine edisylate * AdvReac Unknown Verified 11/25/21 12:09 [From Compazine] prochlorperazine maleate * AdvReac Unknown Verified 11/25/21 12:09 [From Compazine] promethazine [From Phenergan] AdvReac Hallucinati Verified 11/25/21 12:09 ons - Social History Does the pt smoke?: Yes Smoking Status: Current every day smoker Does the pt drink ETOH?: Yes Does the pt have substance abuse?: No - Immunizations Immunizations are current?: Yes - POLST Patient has POLST: Yes POLST Status: DNR PD ED PE NORMAL - Vitals Vital signs reviewed: Yes - General General: Alert and oriented X 3, No acute distress - HEENT HEENT: Other (Very dry mucous membranes) - Neck Neck: Supple, no meningeal sign, No bony TTP - Cardiac Cardiac: RRR, No murmur - Respiratory Respiratory: No respiratory distress, Clear bilaterally - Abdomen Abdomen: Soft, Non tender - Extremities Extremities: Other (Venous stasis changes) - Neuro Neuro: Alert and oriented X 3, Normal speech - Psych Psych: Normal mood Results - Vitals Vitals: Vital Signs - 24 hr 11/25/21 11/25/21 11:58 14:16 Temperature 37 C Heart Rate 87 83 Respiratory 14 18 Rate Blood Pressure 144/85 H 147/93 H O2 Saturation 99 96 Oxygen O2 Source [Without Activity] Room air O2 Source Room air - Labs Labs: Laboratory Tests 11/25/21 11/25/21 11/25/21 12:35 12:50 12:50 WBC 8.2 RBC 5.27 Hgb 16.0 Hct 47.5 H MCV 90.1 MCH 30.4 MCHC 33.7 RDW 15.9 H Plt Count 285 MPV 9.3 Neut # (Auto) 6.1 Lymph # (Auto) 1.2 L [place] # (Auto) 0.6 Eos # (Auto) 0.1 Baso # (Auto) 0.0 Absolute Nucleated RBC 0.00 Nucleated RBC % 0.0 Sodium 140 Potassium 3.2 L Chloride 100 L Carbon Dioxide 27 Anion Gap 13.0 BUN 7 Creatinine 0.5 Estimated GFR (MDRD) 124 Glucose 126 H Calcium 9.2 Magnesium 1.3 L Total Bilirubin 0.9 AST 18 ALT 20 Alkaline Phosphatase 96 Total Protein 6.9 Albumin 4.1 Globulin 2.8 Albumin/Globulin Ratio 1.5 Stl C. diff Tox B Gene NEGATIVE PD MEDICAL DECISION MAKING - ED course ED course: 66-year-old woman presents with dizziness after what sounds like a GI illness. Very benign exam. Labs are basically normal for her, she has chronic electrolyte balances and potassium was repleted orally and magnesium IV. She was feeling much better after the administration of IV fluids and some symptomatic meds here and requesting discharge. C. difficile was negative, stool culture pending on discharge. She declined any prescriptions. Departure - Departure Disposition: 01 Home, Self Care Clinical Impression: Diarrhea, Hypomagnesemia, Dehydration Condition: Stable Record reviewed to determine appropriate education?: Yes Instructions: ED Diarrhea Viral Comments: Drink plenty of fluids, return if worsening. C. difficile test was negative, stool cultures pending. Follow-up with your primary care physician, next available appointment.
[2021-11-25 12:56] LABS: BASOPHILS % (AUTO) 0.5 %; EOSINOPHILS # (AUTO) 0.1 10^3/uL (0.0-0.7); EOSINOPHILS % (AUTO) 1.3 %; HCT - HEMATOCRIT 47.5 % (37.0-47.0); LYMPHOCYTES # (AUTO) 1.2 10^3/uL (1.5-3.5); LYMPHOCYTES % (AUTO) 14.7 %; MEAN CORPUSCULAR HEMOGLOBIN 30.4 pg (27.0-31.0); MEAN CORPUSCULAR HGB CONC 33.7 g/dL (32.0-36.0); MEAN CORPUSCULAR VOLUME 90.1 fL (81.0-99.0); MEAN PLATELET VOLUME 9.3 fL (7.9-10.8); MONOCYTES # (AUTO) 0.6 10^3/uL (0.0-1.0); MONOCYTES % (AUTO) 7.5 %; NEUTROPHILS # (AUTO) 6.1 10^3/uL (1.5-6.6); NEUTROPHILS % (AUTO) 74.9 %; PLT - PLATELET COUNT 285 10^3/uL (130-450); RED BLOOD COUNT 5.27 10^6/uL (4.20-5.40); RED CELL DISTRIBUTION WIDTH 15.9 % (12.0-15.0); WHITE BLOOD COUNT 8.2 x10^3/uL (4.8-10.8)
[2021-11-25 13:08] LABS: ALBUMIN 4.1 g/dL (3.2-5.5); ALBUMIN/GLOBULIN RATIO 1.5 (1.0-2.2); BILIRUBIN,TOTAL 0.9 mg/dL (0.2-1.0); CALCIUM 9.2 mg/dL (8.5-10.3); CREATININE 0.5 mg/dL (0.4-1.0); MAGNESIUM 1.3 mg/dL (1.7-2.8); POTASSIUM 3.2 mmol/L (3.5-5.0); TOTAL PROTEIN 6.9 g/dL (6.7-8.2)
[2021-11-25] MEDS ORDERED: POTASSIUM CHLORIDE 20 MEQ TABLET PO STA (13:24)
[2021-11-25] MEDS ORDERED: MAGNESIUM SULFATE 2 GRAM 2 GM/50 ML BAG IV ONE (14:06)
[2021-11-25] MEDS ORDERED: HYDROmorphone 1 MG/ML CARPUJECT IVP STA (14:10)
[2021-11-25] MEDS ORDERED: LACTATED RINGERS 1,000 ML IV STA (15:03)
[2021-11-25 17:13] VITALS: BP 160/96
== END 2021-11-25 17:35 | disposition home or self-care (01) ==
LOC: EDUNIT# → ED 11:50
DX: R19.7 Diarrhea, unspecified (principal); E83.42 Hypomagnesemia; E86.0 Dehydration; F17.200 Nicotine dependence, unspecified, uncomplicated; Z66 Do not resuscitate
CPT/HCPCS: 36415; 80053; 83735; 85025; 87045; 87046; 87427; 87493; 96361; 96365; 96375; 96376; 99284; A9270; J1170; J7120

== ENCOUNTER 2021-12-23 10:03 | Outpatient (CLI) | payer MEDICARE ==
--- NOTE | 2021-12-24 08:18 | Mammography Report ---
BILATERAL DIGITAL SCREENING MAMMOGRAM 3D/2D: 12/23/2021 CLINICAL: Routine screening. Comparison is made to exams dated: 11/08/2016 mammogram, 11/22/2014 mammogram, and 10/06/2013 mammogram - [facility]. The tissue of both breasts is predominantly fatty. No significant masses, calcifications, or other findings are seen in either breast. There has been no significant interval change. IMPRESSION: NEGATIVE There is no mammographic evidence of malignancy. A 1 year screening mammogram is recommended. Based on the Tyrer Cuzick model (a risk assessment model) the patients lifetime risk is 4.3% and her 10 year risk is 2.4%. According to the ACR, ACS, and NCCN guidelines, an annual breast MRI exam donna g with mammogram is recommended if the patients lifetime risk is 20% or greater. This exam was interpreted at Station ID: [id number]. NOTE: For mammograms, a report in lay terms will be sent to the patient. Approximately 15% of breast malignancies will not be visualized mammographically. In the management of a palpable breast mass, a negative mammogram must not discourage biopsy of a clinically suspicious lesion. Electronically Signed By: Ana Lilia gant/jesus:12/23/2021 11:47:16 ACR BI-RADS Category 1: Negative 3341F PARENCHYMAL PATTERN: (F) - The breast(s) demonstrate(s) diffuse fatty replacement. BI-RADS CATEGORY: (1) - 1 RECOMMENDATION: (ANNUAL) - Recommend routine annual screening mammography. [id number] 1 year screening LATERALITY: (B)
== END 2021-12-23 10:04 | disposition home or self-care (01) ==
LOC: DI 10:03
PROVIDERS: ATTEND Nurse Practitioner Family
DX: Z12.31 Encounter for screening mammogram for malignant neoplasm of breast (principal)

== ENCOUNTER 2022-03-22 19:21 | Emergency (ER) | payer MEDICARE ==
[2022-03-22] MEDS ORDERED: IPRATROPIUM/ALBUTEROL 3 ML NEB INH STA (19:41)
--- NOTE | 2022-03-22 19:59 | XRAY Report ---
PROCEDURE: Chest 1 View X-Ray INDICATIONS: dyspnea/cough TECHNIQUE: One view of the chest was acquired. COMPARISON: Chest x-ray one view, 10/19/2021. FINDINGS: Surgical changes and devices: There is a Port-A-Cath on the left with the tip in the area of SVC. Lungs and pleura: No pleural effusions or pneumothorax. Bilateral interstitial prominence, unchanged from the last exam. Lungs are otherwise clear. Mediastinum: Mediastinal contours appear normal. Heart size is normal. Bones and chest wall: No suspicious bony lesions. Overlying soft tissues appear unremarkable. IMPRESSION: 1. No acute cardiopulmonary disease. Reviewed by: Jw Smart MD on 03/22/2022 7:58 PM PDT Approved by: Jw Smart MD on 03/22/2022 7:58 PM PDT Station ID: [id number]
[2022-03-22 20:04] LABS: BASOPHILS % (AUTO) 0.5 %; EOSINOPHILS # (AUTO) 0.2 10^3/uL (0.0-0.7); EOSINOPHILS % (AUTO) 2.7 %; HCT - HEMATOCRIT 46.9 % (37.0-47.0); HGB - HEMOGLOBIN 15.7 g/dL (12.0-16.0); LYMPHOCYTES # (AUTO) 1.6 10^3/uL (1.5-3.5); LYMPHOCYTES % (AUTO) 20.8 %; MEAN CORPUSCULAR HEMOGLOBIN 30.3 pg (27.0-31.0); MEAN CORPUSCULAR HGB CONC 33.5 g/dL (32.0-36.0); MEAN CORPUSCULAR VOLUME 90.4 fL (81.0-99.0); MONOCYTES # (AUTO) 0.7 10^3/uL (0.0-1.0); MONOCYTES % (AUTO) 8.4 %; NEUTROPHILS # (AUTO) 5.2 10^3/uL (1.5-6.6); NEUTROPHILS % (AUTO) 67.1 %; PLT - PLATELET COUNT 319 10^3/uL (130-450); RED BLOOD COUNT 5.19 10^6/uL (4.20-5.40); RED CELL DISTRIBUTION WIDTH 15.9 % (12.0-15.0); WHITE BLOOD COUNT 7.7 x10^3/uL (4.8-10.8)
[2022-03-22 20:17] LABS: ALBUMIN 3.9 g/dL (3.2-5.5); ALBUMIN/GLOBULIN RATIO 1.3 (1.0-2.2); BILIRUBIN,TOTAL 0.7 mg/dL (0.2-1.0); CALCIUM 9.1 mg/dL (8.5-10.3); CREATININE 0.6 mg/dL (0.4-1.0); MAGNESIUM 1.1 mg/dL (1.7-2.8); POTASSIUM 3.6 mmol/L (3.5-5.0); TOTAL PROTEIN 6.8 g/dL (6.7-8.2)
[2022-03-22 20:57] LABS: CORONAVIRUS 229E-RESP PCR NOT DETECTED; CORONAVIRUS HKU1-RESP PCR NOT DETECTED; CORONAVIRUS NL63-RESP PCR NOT DETECTED; CORONAVIRUS OC43-RESP PCR NOT DETECTED; HUMAN METAPNEUMOVIRUS NOT DETECTED; RHINOVIRUS/ENTEROVIRUS DETECTED; SARS-CoV-2 -RESP PCR PANEL NOT DETECTED
[2022-03-22 20:58] LABS: B. PARAPERTUSSIS- RESP PCR PAN NOT DETECTED; B. PERTUSSIS- RESP PCR PANEL NOT DETECTED; C. PNEUMONIAE- RESP PCR PANEL NOT DETECTED; INFLUENZA A- RESP PCR PANEL NOT DETECTED; INFLUENZA B - RESP PCR PANEL NOT DETECTED; M. PNEUMONIAE- RESP PCR PANEL NOT DETECTED; PARAINFLUENZA VIRUS 1 NOT DETECTED; PARAINFLUENZA VIRUS 2 NOT DETECTED; PARAINFLUENZA VIRUS 3 NOT DETECTED; PARAINFLUENZA VIRUS 4 NOT DETECTED; RSV- RESP PCR PANEL NOT DETECTED
[2022-03-22] MEDS ORDERED: CHERRY SYRUP 10 ML UDC PO ONE (21:07)
[2022-03-22] MEDS ORDERED: DEXAMETHASONE 10 MG/ML VIAL PO STA (21:07)
--- NOTE | 2022-03-22 21:11 | ED Physician Documentation ---
PD HPI URI - Stated complaint Stated Complaint: COUGH/SOA - Chief complaint Chief Complaint: Resp - History obtained from History obtained from: Patient - History of Present Illness Timing - onset: How many days ago (10) - Additional information Additional information: 66-year-old female with history of chronic prednisone use, rheumatoid arthritis, anemia, chronic tobacco abuse presents by private vehicle for cough and shortness of breath for 10 days. Patient states that the coughing is extremely bothersome and she cannot get any rest because of it. She feels fatigued and generally weak because she cannot get any rest and because of her extensive coughing. Review of Systems Ten Systems: 10 systems reviewed and negative Constitutional: reports: Fatigue. denies: Fever, Chills Cardiac: denies: Chest pain / pressure, Palpitations Respiratory: reports: Cough. 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: Ovarian cysts, Other : Incontinence HEENT: Chronic vision loss, Chronic sinusitis Psych: Depression, Anxiety, Obsessive compulsive disorder, Other Musculoskeletal: Osteoarthritis, Other Derm: Other - Past Surgical History Past Surgical History: Yes General: Cholecystectomy, Appendectomy, Bowel surgery, Other Ortho: Knee replacement /SENIOR COBOL DEVELOPER: 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, Oophrectomy Cardiovascular: Cardiac catheterization HEENT: Tonsil/Adenoidectomy - Present Medications Home Medications: Ambulatory Orders Medication Instructions Recorded Confirmed Aspirin [Aspirin EC] 650 mg PO 0800,1200,1600,2000 05/29/13 08/08/21 Metoprolol Tartrate 50 mg PO BID 05/29/13 08/08/21 Glimepiride 1 mg PO QDBREAKFAST 03/03/17 08/08/21 Fluticasone [Flonase] 1 sprays MATT DAILY 11/26/17 08/08/21 Esomeprazole Magnesium [Nexium] 40 mg PO DAILY 05/03/18 08/08/21 Cetirizine [ZyrTEC] 10 mg PO DAILY PM 09/06/18 08/08/21 predniSONE [Deltasone] 5 mg PO DAILY 09/06/18 08/08/21 buPROPion HCL [Bupropion HCl Sr] 150 mg PO BID 12/21/18 08/08/21 Nystatin [Nystop] 1 applic TOP QID PRN #1 bottle 12/24/18 08/08/21 Melatonin 5 mg SL QPM 03/02/20 08/08/21 Dicyclomine [Bentyl] 1 - 2 tab PO QID PRN #20 cap 08/03/21 08/08/21 Albuterol Sulf [Ventolin Hfa 1 - 2 puffs INH Q4HR PRN #1 inhaler 10/19/21 Inhaler] Benzonatate [Tessalon] 200 mg PO QID PRN #20 cap 10/19/21 Benzonatate [Tessalon] 200 mg PO QID PRN #20 cap 03/22/22 Promethazine HCl/Codeine 5 ml PO TID PRN #150 ml 03/22/22 [Prometh-Codein 6.25-10 mg/5 ml] - Allergies Allergies/Adverse Reactions: Allergies Allergy/AdvReac Type Severity Reaction Status Date / Time droperidol [From Inapsine] Allergy Severe EPS Verified 03/22/22 19:24 ibuprofen [From Motrin] Allergy Severe Anaphylaxis Verified 03/22/22 19:24 peanut Allergy Severe Anaphylaxis Verified 03/22/22 19:24 shellfish derived Allergy Severe Anaphylaxis Verified 03/22/22 19:24 Gyynyxs-SQV-OkF Reductase Allergy Severe muscle pain Verified 03/22/22 19:24 Inhibitor [Kwlpdhy-Fet-Rrb Reductase Inhibitor] amoxicillin [Amoxicillin] Allergy Intermediate Hives Verified 03/22/22 19:24 cefazolin Allergy Intermediate Hives Verified 03/22/22 19:24 Cephalosporins Allergy Intermediate Hives Verified 03/22/22 19:24 clindamycin Allergy Intermediate Hives Verified 03/22/22 19:24 cyclobenzaprine Allergy Intermediate Hives/night Verified 03/22/22 19:24 [Cyclobenzaprine] castaneda erythromycin base Allergy Intermediate Hives Verified 03/22/22 19:24 [Erythromycin Base] potassium clavulanate * Allergy Intermediate Hives Verified 03/22/22 19:24 [From Augmentin] ketorolac tromethamine * Allergy Anaphylaxis Verified 03/22/22 19:24 [From Toradol] adhesive tape AdvReac Severe BLISTERS Verified 03/22/22 19:24 duloxetine AdvReac Severe Suicidal Verified 03/22/22 19:24 etanercept [From Enbrel] AdvReac Severe Nausea/vomm Verified 03/22/22 19:24 iting/cramp s methotrexate AdvReac Severe N/V/Cramps Verified 03/22/22 19:24 NSAIDS (Non-Steroidal AdvReac Severe Anaphylaxis Verified 03/22/22 19:24 Anti-Inflamma prochlorperazine AdvReac Severe EPS Verified 03/22/22 19:24 pseudoephedrine AdvReac Severe Tachycardia Verified 03/22/22 19:24 sumatriptan AdvReac Severe Widened QRS Verified 03/22/22 19:24 doxycycline AdvReac Intermediate Hives Verified 03/22/22 19:24 gabapentin AdvReac Intermediate Gait Verified 03/22/22 19:24 disturbance latex AdvReac Intermediate Sensitivity Verified 03/22/22 19:24 morphine AdvReac Unknown Verified 03/22/22 19:24 prochlorperazine edisylate * AdvReac Unknown Verified 03/22/22 19:24 [From Compazine] prochlorperazine maleate * AdvReac Unknown Verified 03/22/22 19:24 [From Compazine] promethazine [From Phenergan] AdvReac Hallucinati Verified 03/22/22 19:24 ons - Social History Does the pt smoke?: Yes Smoking Status: Current every day smoker Does the pt drink ETOH?: Yes Does the pt have substance abuse?: No - Immunizations Immunizations are current?: Yes - POLST Patient has POLST: Yes POLST Status: DNR PD ED PE NORMAL - Vitals Vital signs reviewed: Yes - General General: Alert and oriented X 3, Other (obese, appears chronically unwell, older than stated age.) - HEENT HEENT: Atraumatic, PERRL, EOMI - Neck Neck: Supple, no meningeal sign, No bony TTP - Cardiac Cardiac: RRR, No murmur, Strong equal pulses - Respiratory Respiratory: No respiratory distress, Clear bilaterally, Other (frequent coughing with deep breaths) - Abdomen Abdomen: Soft, Non tender, Non distended - Derm Derm: Normal color, Warm and dry, No rash - Extremities Extremities: No deformity, Normal ROM s pain - Neuro Neuro: Alert and oriented X 3, infrastructure administrator 2-12 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, Normal speech - Psych Psych: Normal mood, Normal affect Results - Vitals Vitals: Vital Signs - 24 hr 03/22/22 03/22/22 19:24 19:50 Temperature 36 C L Heart Rate 88 85 Respiratory 22 20 Rate Blood Pressure 154/71 H O2 Saturation 97 Oxygen O2 Source [Without Activity] Room air O2 Source Room air - EKG (time done) 1956 Rate: Rate (enter#) (811) Rhythm: NSR [place]: Normal Intervals: Normal [place] QRS: Normal Ischemia: Normal ST segments - Labs Labs: Laboratory Tests 03/22/22 03/22/22 03/22/22 20:00 20:00 20:00 WBC 7.7 RBC 5.19 Hgb 15.7 Hct 46.9 MCV 90.4 MCH 30.3 MCHC 33.5 RDW 15.9 H Plt Count 319 MPV 9.0 Neut # (Auto) 5.2 Lymph # (Auto) 1.6 [place] # (Auto) 0.7 Eos # (Auto) 0.2 Baso # (Auto) 0.0 Absolute Nucleated RBC 0.00 Nucleated RBC % 0.0 Sodium 138 Potassium 3.6 Chloride 100 L Carbon Dioxide 28 Anion Gap 10.0 BUN 11 Creatinine 0.6 Estimated GFR (MDRD) 100 Glucose 107 H Calcium 9.1 Magnesium 1.1 L Total Bilirubin 0.7 AST 17 ALT 15 Alkaline Phosphatase 116 Troponin I High Sens 3.5 B-Natriuretic Peptide Total Protein 6.8 Albumin 3.9 Globulin 2.9 Albumin/Globulin Ratio 1.3 Nasal Adenovirus (PCR) Nasal B. parapertussis DNA (PCR) Nasal Coronavir 229E PCR Nasal Coronavir HKU1 PCR Nasal Coronavir NL63 PCR Nasal Coronavir OC43 PCR Nasal Enterovir/Rhinovir PCR Nasal Influenza B PCR Nasal Influenza A PCR Nasal Parainfluen 1 PCR Nasal Parainfluen 2 PCR Nasal Parainfluen 3 PCR Nasal Parainfluen 4 PCR Nasal RSV (PCR) Nasal B.pertussis DNA PCR Nasal C.pneumoniae (PCR) Matt Human Metapneumo PCR Nasal M.pneumoniae (PCR) Nasal SARS-CoV-2 (PCR) 03/22/22 03/22/22 20:00 20:00 WBC RBC Hgb Hct MCV MCH MCHC RDW Plt Count MPV Neut # (Auto) Lymph # (Auto) [place] # (Auto) Eos # (Auto) Baso # (Auto) Absolute Nucleated RBC Nucleated RBC % Sodium Potassium Chloride Carbon Dioxide Anion Gap BUN Creatinine Estimated GFR (MDRD) Glucose Calcium Magnesium Total Bilirubin AST ALT Alkaline Phosphatase Troponin I High Sens B-Natriuretic Peptide 49 Total Protein Albumin Globulin Albumin/Globulin Ratio Nasal Adenovirus (PCR) NOT DETECTED Nasal B. parapertussis DNA (PCR) NOT DETECTED Nasal Coronavir 229E PCR NOT DETECTED Nasal Coronavir HKU1 PCR NOT DETECTED Nasal Coronavir NL63 PCR NOT DETECTED Nasal Coronavir OC43 PCR NOT DETECTED Nasal Enterovir/Rhinovir PCR DETECTED A Nasal Influenza B PCR NOT DETECTED Nasal Influenza A PCR NOT DETECTED Nasal Parainfluen 1 PCR NOT DETECTED Nasal Parainfluen 2 PCR NOT DETECTED Nasal Parainfluen 3 PCR NOT DETECTED Nasal Parainfluen 4 PCR NOT DETECTED Nasal RSV (PCR) NOT DETECTED Nasal B.pertussis DNA PCR NOT DETECTED Nasal C.pneumoniae (PCR) NOT DETECTED Matt Human Metapneumo PCR NOT DETECTED Nasal M.pneumoniae (PCR) NOT DETECTED Nasal SARS-CoV-2 (PCR) NOT DETECTED PD MEDICAL DECISION MAKING - ED course Complexity details: reviewed results, re-evaluated patient, considered differential, d/w patient ED course: Cough and shortness of breath and patient with many chronic medical conditions including COPD. Lungs are clear to auscultation bilaterally, however patient is coughing extensively and lung exam is limited secondary to extensive cough. Patient however is saturating well on room air and speaking in complete sentences without dyspnea. Patient also requested that we check her magnesium levels because she normally gets magnesium infusions weekly, however because of her illness she had to miss last week's appointment. Labs are significant for magnesium 1.1. Respiratory panel positive for rhinovirus. X-ray unremarkable. No improvement or change in symptoms after nebulizer treatment. Magnesium infusion ordered for patient as well as Marin Liriano for cough. Patient informed of her results. Cough medication sent to pharmacy and supportive measures counseled at home. Patient states she will follow up with her primary care physician next week. Departure - Departure Disposition: 01 Home, Self Care Clinical Impression: Viral URI, Rhinovirus, Hypomagnesemia Condition: Stable Instructions: ED Viral Syndrome Prescriptions: Promethazine HCl/Codeine [Prometh-Codein 6.25-10 mg/5 ml] 5 ml PO TID PRN #150 ml PRN Reason: Cough Benzonatate [Tessalon] 200 mg PO QID PRN #20 cap PRN Reason: Cough
[2022-03-22] MEDS ORDERED: BENZONATATE 100 MG CAPSULE PO STA (21:15)
[2022-03-22] MEDS ORDERED: MAGNESIUM SULFATE 2 GRAM 2 GM/50 ML BAG IV ONE (21:15)
[2022-03-22] MEDS ORDERED: ACETAMINOPHEN 500 MG TABLET PO STA (21:19)
[2022-03-22 22:56] VITALS: BP 130/70
== END 2022-03-22 22:55 | disposition home or self-care (01) ==
LOC: ED 19:21
DX: J06.9 Acute upper respiratory infection, unspecified (principal); B97.89 Other viral agents as the cause of diseases classified elsewhere; E83.42 Hypomagnesemia; J44.9 Chronic obstructive pulmonary disease, unspecified; I11.0 Hypertensive heart disease with heart failure; I50.9 Heart failure, unspecified; E11.9 Type 2 diabetes mellitus without complications; K21.9 Gastro-esophageal reflux disease without esophagitis; F32.A Depression, unspecified; F41.9 Anxiety disorder, unspecified; F42.9 Obsessive-compulsive disorder, unspecified; F17.200 Nicotine dependence, unspecified, uncomplicated
CPT/HCPCS: 36415; 71045; 80053; 83735; 83880; 84484; 85025; 87633; 93005; 94640; 96365; 99283; 99284; A9270

== ENCOUNTER 2022-04-07 13:14 | Emergency (ER) | payer MEDICARE ==
[2022-04-07] MEDS ORDERED: HYDROmorphone 1 MG/ML CARPUJECT IVP STA ×2 (13:35→14:59)
[2022-04-07] MEDS ORDERED: SODIUM CHLORIDE 0.9% 1,000 ML IV STA (13:35)
[2022-04-07] MEDS ORDERED: IPRATROPIUM/ALBUTEROL 3 ML NEB INH STA (13:35)
[2022-04-07] MEDS ORDERED: MAGNESIUM SULFATE 2 GRAM 2 GM/50 ML BAG IV ONE ×2 (13:37→15:14)
--- NOTE | 2022-04-07 13:39 | ED Physician Documentation ---
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 She was seen by one of my partners on March 22, at that time she was positive for rhinovirus/enterovirus. She says she is been sick ever since but got worse again last night with more productive cough and more severe cough, shortness of breath and seeing purple spots. She is bringing up yellow sputum and feels like there is a lot of sputum stuck in her mid chest. She has had a low-grade fever and chest pain from coughing. She denies pedal edema or calf pain. She has chronic hypomagnesemia and missed her appointment for magnesium infusion last week because of the cough. 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: Ovarian cysts, Other : Incontinence HEENT: Chronic vision loss, Chronic sinusitis Psych: Depression, Anxiety, Obsessive compulsive disorder, Other Musculoskeletal: Osteoarthritis, Other Derm: Other - Past Surgical History Past Surgical History: Yes General: Cholecystectomy, Appendectomy, Bowel surgery, Other Ortho: Knee replacement /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: 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, Oophrectomy Cardiovascular: Cardiac catheterization HEENT: Tonsil/Adenoidectomy - Present Medications Home Medications: Ambulatory Orders Medication Instructions Recorded Confirmed Aspirin [Aspirin EC] 650 mg PO 0800,1200,1600,2000 05/29/13 08/08/21 Metoprolol Tartrate 50 mg PO BID 05/29/13 08/08/21 Glimepiride 1 mg PO QDBREAKFAST 03/03/17 08/08/21 Fluticasone [Flonase] 1 sprays MATT DAILY 11/26/17 08/08/21 Esomeprazole Magnesium [Nexium] 40 mg PO DAILY 05/03/18 08/08/21 Cetirizine [ZyrTEC] 10 mg PO DAILY PM 09/06/18 08/08/21 predniSONE [Deltasone] 5 mg PO DAILY 09/06/18 08/08/21 buPROPion HCL [Bupropion HCl Sr] 150 mg PO BID 12/21/18 08/08/21 Nystatin [Nystop] 1 applic TOP QID PRN #1 bottle 12/24/18 08/08/21 Melatonin 5 mg SL QPM 03/02/20 08/08/21 Dicyclomine [Bentyl] 1 - 2 tab PO QID PRN #20 cap 08/03/21 08/08/21 Albuterol Sulf [Ventolin Hfa 1 - 2 puffs INH Q4HR PRN #1 inhaler 10/19/21 Inhaler] Benzonatate [Tessalon] 200 mg PO QID PRN #20 cap 10/19/21 Benzonatate [Tessalon] 200 mg PO QID PRN #20 cap 03/22/22 Promethazine HCl/Codeine 5 ml PO TID PRN #150 ml 03/22/22 [Prometh-Codein 6.25-10 mg/5 ml] Albuterol Sulf [Ventolin Hfa 1 - 2 puffs INH Q4HR PRN #1 each 04/07/22 Inhaler] Benzonatate [Tessalon] 200 mg PO QID PRN #20 cap 04/07/22 HYDROmorphone [Dilaudid] 1 - 2 tab PO Q4H PRN #20 tablet 04/07/22 Ondansetron Odt [Zofran] 4 mg TL Q6H PRN #10 tablet 04/07/22 levoFLOXacin [Levofloxacin] 750 mg PO DAILY #6 tablet 04/07/22 - Allergies Allergies/Adverse Reactions: Allergies Allergy/AdvReac Type Severity Reaction Status Date / Time droperidol [From Inapsine] Allergy Severe EPS Verified 03/22/22 19:24 ibuprofen [From Motrin] Allergy Severe Anaphylaxis Verified 03/22/22 19:24 peanut Allergy Severe Anaphylaxis Verified 03/22/22 19:24 shellfish derived Allergy Severe Anaphylaxis Verified 03/22/22 19:24 Ikrofat-LSU-BnS Reductase Allergy Severe muscle pain Verified 03/22/22 19:24 Inhibitor [Sauhorz-Mfr-Yph Reductase Inhibitor] amoxicillin [Amoxicillin] Allergy Intermediate Hives Verified 03/22/22 19:24 cefazolin Allergy Intermediate Hives Verified 03/22/22 19:24 Cephalosporins Allergy Intermediate Hives Verified 03/22/22 19:24 clindamycin Allergy Intermediate Hives Verified 03/22/22 19:24 cyclobenzaprine Allergy Intermediate Hives/night Verified 03/22/22 19:24 [Cyclobenzaprine] castaneda erythromycin base Allergy Intermediate Hives Verified 03/22/22 19:24 [Erythromycin Base] potassium clavulanate * Allergy Intermediate Hives Verified 03/22/22 19:24 [From Augmentin] ketorolac tromethamine * Allergy Anaphylaxis Verified 03/22/22 19:24 [From Toradol] adhesive tape AdvReac Severe BLISTERS Verified 03/22/22 19:24 duloxetine AdvReac Severe Suicidal Verified 03/22/22 19:24 etanercept [From Enbrel] AdvReac Severe Nausea/vomm Verified 03/22/22 19:24 iting/cramp s methotrexate AdvReac Severe N/V/Cramps Verified 03/22/22 19:24 NSAIDS (Non-Steroidal AdvReac Severe Anaphylaxis Verified 03/22/22 19:24 Anti-Inflamma prochlorperazine AdvReac Severe EPS Verified 03/22/22 19:24 pseudoephedrine AdvReac Severe Tachycardia Verified 03/22/22 19:24 sumatriptan AdvReac Severe Widened QRS Verified 03/22/22 19:24 doxycycline AdvReac Intermediate Hives Verified 03/22/22 19:24 gabapentin AdvReac Intermediate Gait Verified 03/22/22 19:24 disturbance latex AdvReac Intermediate Sensitivity Verified 03/22/22 19:24 morphine AdvReac Unknown Verified 03/22/22 19:24 prochlorperazine edisylate * AdvReac Unknown Verified 03/22/22 19:24 [From Compazine] prochlorperazine maleate * AdvReac Unknown Verified 03/22/22 19:24 [From Compazine] promethazine [From Phenergan] AdvReac Hallucinati Verified 03/22/22 19:24 ons - Social History Does the pt smoke?: Yes Smoking Status: Current every day smoker Does the pt drink ETOH?: Yes Does the pt have substance abuse?: No - Immunizations Immunizations are current?: Yes - POLST Patient has POLST: Yes POLST Status: DNR PD ED PE NORMAL - Vitals Vital signs reviewed: Yes - General General: Alert and oriented X 3, Other (Frequent coughing spasms during which she appears to be in pain.) - HEENT HEENT: PERRL, EOMI - Neck Neck: Supple, no meningeal sign, No bony TTP - Cardiac Cardiac: No murmur, Other (Regular tachycardia) - Respiratory Respiratory: Other (Rhonchorous at both bases and diminished at both bases.) - Abdomen Abdomen: Normal bowel sounds, Soft, Non tender - Derm Derm: Normal color, Warm and dry - Extremities Extremities: No edema, No calf tenderness / cord, Other (Venous stasis changes) - Neuro Neuro: Alert and oriented X 3, Normal speech Results - Vitals Vitals: Vital Signs - 24 hr 04/07/22 04/07/22 04/07/22 13:20 13:24 13:52 Temperature 37.8 C 37.8 C Heart Rate 122 H 108 H 108 H Respiratory 29 H 12 12 Rate Blood Pressure 134/71 H 134/71 H O2 Saturation 92 92 04/07/22 04/07/22 04/07/22 14:24 14:30 15:00 Temperature 36.5 C Heart Rate 100 106 H 99 Respiratory 20 16 21 Rate Blood Pressure 133/74 H 132/76 H 130/70 O2 Saturation 92 92 92 04/07/22 16:00 Temperature Heart Rate 97 Respiratory 20 Rate Blood Pressure 129/100 H O2 Saturation 92 Oxygen O2 Source [] Room air O2 Source Room air - EKG (time done) 1320 Rate: Rate (enter#) (111) Rhythm: Sinus tachycardia [place]: Normal Intervals: Normal [place] QRS: Normal Ischemia: Q waves (Anterior, computer also reads inferior which I disagree with.) - Labs Labs: Laboratory Tests 04/07/22 04/07/22 04/07/22 14:10 14:10 14:10 WBC 15.0 H RBC 4.82 Hgb 14.2 Hct 45.0 MCV 93.4 MCH 29.5 MCHC 31.6 L RDW 16.1 H Plt Count 288 MPV 9.0 Neut # (Auto) 12.5 H Lymph # (Auto) 1.2 L [place] # (Auto) 1.0 Eos # (Auto) 0.2 Baso # (Auto) 0.1 Absolute Nucleated RBC 0.00 Nucleated RBC % 0.0 Sodium 140 Potassium 2.9 L Chloride 99 L Carbon Dioxide 26 Anion Gap 15.0 H BUN 10 Creatinine 0.6 Estimated GFR (MDRD) 100 Glucose 128 H Calcium 8.0 L Magnesium 1.0 L* Total Bilirubin 0.8 AST 17 ALT 19 Alkaline Phosphatase 101 Troponin I High Sens 4.8 Total Protein 6.4 L Albumin 3.3 Globulin 3.1 Albumin/Globulin Ratio 1.1 Lipase 30 Nasal Adenovirus (PCR) Nasal B. parapertussis DNA (PCR) Nasal Coronavir 229E PCR Nasal Coronavir HKU1 PCR Nasal Coronavir NL63 PCR Nasal Coronavir OC43 PCR Nasal Enterovir/Rhinovir PCR Nasal Influenza B PCR Nasal Influenza A PCR Nasal Parainfluen 1 PCR Nasal Parainfluen 2 PCR Nasal Parainfluen 3 PCR Nasal Parainfluen 4 PCR Nasal RSV (PCR) Nasal B.pertussis DNA PCR Nasal C.pneumoniae (PCR) Matt Human Metapneumo PCR Nasal M.pneumoniae (PCR) Nasal SARS-CoV-2 (PCR) 04/07/22 14:10 WBC RBC Hgb Hct MCV MCH MCHC RDW Plt Count MPV Neut # (Auto) Lymph # (Auto) [place] # (Auto) Eos # (Auto) Baso # (Auto) Absolute Nucleated RBC Nucleated RBC % Sodium Potassium Chloride Carbon Dioxide Anion Gap BUN Creatinine Estimated GFR (MDRD) Glucose Calcium Magnesium Total Bilirubin AST ALT Alkaline Phosphatase Troponin I High Sens Total Protein Albumin Globulin Albumin/Globulin Ratio Lipase Nasal Adenovirus (PCR) NOT DETECTED Nasal B. parapertussis DNA (PCR) NOT DETECTED Nasal Coronavir 229E PCR NOT DETECTED Nasal Coronavir HKU1 PCR NOT DETECTED Nasal Coronavir NL63 PCR NOT DETECTED Nasal Coronavir OC43 PCR NOT DETECTED Nasal Enterovir/Rhinovir PCR DETECTED A Nasal Influenza B PCR NOT DETECTED Nasal Influenza A PCR NOT DETECTED Nasal Parainfluen 1 PCR NOT DETECTED Nasal Parainfluen 2 PCR NOT DETECTED Nasal Parainfluen 3 PCR NOT DETECTED Nasal Parainfluen 4 PCR NOT DETECTED Nasal RSV (PCR) NOT DETECTED Nasal B.pertussis DNA PCR NOT DETECTED Nasal C.pneumoniae (PCR) NOT DETECTED Matt Human Metapneumo PCR NOT DETECTED Nasal M.pneumoniae (PCR) NOT DETECTED Nasal SARS-CoV-2 (PCR) NOT DETECTED - Rads (name of study) 1v chest Radiology: EMP read contemporaneously (L bailar infiltrate) PD MEDICAL DECISION MAKING - ED course ED course: 66-year-old woman with multiple comorbidities as above presents with worsened cough and chest pain related to cough. Work-up today demonstrates that she has a left lower lobe pneumonia, white count of 15. She has chronic hypomagnesemia and her magnesium today is 1.0 and she is given a total of 4 g of magnesium and 10 mill equivalents of potassium for her potassium level of 2.9. She is still positive on PCR for enterovirus/rhinovirus, but given the new infiltrate on x- ray will treat for bacterial pneumonia superimposed especially given the leukocytosis. Note made that she is allergic to both cephalosporins and amoxicillin so was given levofloxacin. She had some borderline pulse oximetry is here but did not want to be admitted. Feeling better after pain medicine and fixing her electrolytes and some IV fluids. Departure - Departure Disposition: 01 Home, Self Care Clinical Impression: Hypomagnesemia, Pneumonia Condition: Good Record reviewed to determine appropriate education?: Yes Instructions: ED Pneumonia Adult Prescriptions: Albuterol Sulf [Ventolin Hfa Inhaler] 1 - 2 puffs INH Q4HR PRN #1 each PRN Reason: Shortness Of Air/Wheezing HYDROmorphone [Dilaudid] 1 - 2 tab PO Q4H PRN #20 tablet PRN Reason: Pain levoFLOXacin [Levofloxacin] 750 mg PO DAILY #6 tablet Benzonatate [Tessalon] 200 mg PO QID PRN #20 cap PRN Reason: Cough Ondansetron Odt [Zofran] 4 mg TL Q6H PRN #10 tablet PRN Reason: Nausea / Vomiting Comments: I sent your prescriptions electronically to [facility] in [place]. Call your doctor to arrange a follow-up appointment, make the next available appointment. In the interim, return anytime if worse or if new symptoms develop. Consider repeat chest radiography in about 6 weeks to confirm resolution of left lower lobe pneumonia. I am prescribing a short course of narcotic pain medication for you. These are potentially dangerous and addictive medications that should be used carefully. These medications may constipate you. Take an znob-ngg-[id number] stool softener (docusate) twice daily with plenty of water while taking these medications. If you go 24 hours without a bowel movement, take cgta-tas-ynwhwja miralax, per package instructions. Do not drink or drive while taking these medications. If you received narcotic or sedating medications while in the emergency department, do not drive for 24 hours. Store this medication in a safe, secure place and out of reach of children. It is a violation of federal law to give or sell this medication to another person or to use in a manner other than prescribed. The ED will not refill narcotic prescriptions, including prescriptions lost or stolen. To dispose of unwanted medications: 1. [facility] at [address] in [place] has a medication drop box. They accept prescription medications (in pill form) Thursday through Thursday 9:00 a.m. to 5:00 p.m. 2. [facility] [employer] [facility] accepts prescription medications (in pill form only) for disposal year round. Call for more information. 3. Contact the [facility] for the next [facility] sponsored prescription drug collection event. , [phone], or [phone]; Note that many narcotic pain relievers also contain Tylenol/acetaminophen. Please ensure that your total dose of acetaminophen from all sources does not exceed 3 g (3000 mg) per day.
--- NOTE | 2022-04-07 13:58 | XRAY Report ---
PROCEDURE: Chest 1 View X-Ray INDICATIONS: Chest pain TECHNIQUE: One view of the chest was acquired. COMPARISON: 03/22/2022 FINDINGS: Surgical changes and devices: Left chest wall central venous port appears to be appropriate position with no kinking or discontinuity. Lungs and pleura: No pleural effusions or pneumothorax. Platelike linear left basilar opacity new fr om prior study. Mediastinum: Mediastinal contours appear normal. Heart size is normal. Bones and chest wall: No suspicious bony lesions. Overlying soft tissues appear unremarkable. IMPRESSION: Left basilar airspace opacity is nonspecific but likely discoid atelectasis or infectious infiltrate given that it is new from 03/22/2022 exam. Reviewed by: Sai Kapoor MD on 04/07/2022 1:57 PM PDT Approved by: Sai Kapoor MD on 04/07/2022 1:57 PM PDT Station ID: [id number]
[2022-04-07] MEDS ORDERED: ONDANSETRON 4 MG/2 ML VIAL IVP STA (14:09)
[2022-04-07 14:18] LABS: BASOPHILS # (AUTO) 0.1 10^3/uL (0.0-0.1); BASOPHILS % (AUTO) 0.4 %; EOSINOPHILS # (AUTO) 0.2 10^3/uL (0.0-0.7); HGB - HEMOGLOBIN 14.2 g/dL (12.0-16.0); LYMPHOCYTES # (AUTO) 1.2 10^3/uL (1.5-3.5); MEAN CORPUSCULAR HEMOGLOBIN 29.5 pg (27.0-31.0); MEAN CORPUSCULAR HGB CONC 31.6 g/dL (32.0-36.0); MEAN CORPUSCULAR VOLUME 93.4 fL (81.0-99.0); MONOCYTES % (AUTO) 6.8 %; NEUTROPHILS # (AUTO) 12.5 10^3/uL (1.5-6.6); NEUTROPHILS % (AUTO) 83.2 %; PLT - PLATELET COUNT 288 10^3/uL (130-450); RED BLOOD COUNT 4.82 10^6/uL (4.20-5.40); RED CELL DISTRIBUTION WIDTH 16.1 % (12.0-15.0)
[2022-04-07 14:37] LABS: ALBUMIN 3.3 g/dL (3.2-5.5); ALBUMIN/GLOBULIN RATIO 1.1 (1.0-2.2); BILIRUBIN,TOTAL 0.8 mg/dL (0.2-1.0); CREATININE 0.6 mg/dL (0.4-1.0); POTASSIUM 2.9 mmol/L (3.5-5.0); TOTAL PROTEIN 6.4 g/dL (6.7-8.2)
[2022-04-07 15:13] LABS: B. PARAPERTUSSIS- RESP PCR PAN NOT DETECTED; B. PERTUSSIS- RESP PCR PANEL NOT DETECTED; C. PNEUMONIAE- RESP PCR PANEL NOT DETECTED; CORONAVIRUS 229E-RESP PCR NOT DETECTED; CORONAVIRUS HKU1-RESP PCR NOT DETECTED; CORONAVIRUS NL63-RESP PCR NOT DETECTED; CORONAVIRUS OC43-RESP PCR NOT DETECTED; HUMAN METAPNEUMOVIRUS NOT DETECTED; INFLUENZA A- RESP PCR PANEL NOT DETECTED; INFLUENZA B - RESP PCR PANEL NOT DETECTED; M. PNEUMONIAE- RESP PCR PANEL NOT DETECTED; PARAINFLUENZA VIRUS 1 NOT DETECTED; PARAINFLUENZA VIRUS 2 NOT DETECTED; PARAINFLUENZA VIRUS 3 NOT DETECTED; PARAINFLUENZA VIRUS 4 NOT DETECTED; RHINOVIRUS/ENTEROVIRUS DETECTED; RSV- RESP PCR PANEL NOT DETECTED; SARS-CoV-2 -RESP PCR PANEL NOT DETECTED
[2022-04-07] MEDS ORDERED: POTASSIUM CHLOR 10 MEQ/100 ML 10 MEQ/100 ML BAG IV STA (15:14)
[2022-04-07] MEDS ORDERED: levoFLOXacin 250 MG TABLET PO STA (15:15)
[2022-04-07] MEDS ORDERED: BENZONATATE 100 MG CAPSULE PO STA (16:27)
[2022-04-07] MEDS ORDERED: METOCLOPRAMIDE 10 MG/2 ML VIAL IVP STA (16:38)
[2022-04-07 17:54] VITALS: BP 133/59
== END 2022-04-07 18:14 | disposition home or self-care (01) ==
LOC: ED 13:14
DX: J10.08 Influenza due to other identified influenza virus with other specified pneumonia (principal); B97.89 Other viral agents as the cause of diseases classified elsewhere; E83.42 Hypomagnesemia; I10 Essential (primary) hypertension; E11.9 Type 2 diabetes mellitus without complications; Z79.84 Long term (current) use of oral hypoglycemic drugs; Z72.0 Tobacco use; Z20.822 Contact with and (suspected) exposure to COVID-19
CPT/HCPCS: 36415; 71045; 80053; 83690; 83735; 84484; 85025; 87633; 93005; 94640; 96361; 96365; 96375; 96376; 99284; 99285; A9270; J1170; J2765

== ENCOUNTER 2022-04-08 20:16 | Outpatient (CLI) | payer MEDICARE | END 2022-04-08 20:17 | disposition critical access hospital (66) | LOC: EMS 20:16 | DX: R11.2 Nausea with vomiting, unspecified (principal); R53.81 Other malaise; R53.1 Weakness | CPT/HCPCS: A0425; A0427 ==

== ENCOUNTER 2022-04-08 20:28 | Observation (INO) | payer MEDICARE ==
--- NOTE | 2022-04-08 21:25 | ED Physician Documentation ---
PD HPI NVD - Stated complaint Stated Complaint: N/V - Chief complaint Chief Complaint: Abd Pain - History obtained from History obtained from: Patient - History of Present Illness Timing - onset: Yesterday Timing - details: Gradual onset Associated symptoms: No: Fever, Abdominal pain, Chest pain Improved by: Other (no ameliorating factors) Worsened by: Other (any PO intake immediately exacerbates n/v) Recently seen: Emergency Dept - Additonal information Additional information: Patient was T+R from this ED 03/22/22 for chief complaint of dyspnea and cough, positive for enterovirus/rhinovirus with incidental note of hypomagesemia for which she was given IV magnesium (patient has chronic hypomagnesemia and received regularly scheduled outpatient magnesium infusions through a port). She was again T+R from this ED yesterday (04/07/22) for worsening dyspnea and cough which had become productive, found to have LLL infiltrate for which she was prescribed levaquin. She also was again found to have low magnesium, as well as hypokalemia (received IV magnesium and potassium prior to d/c). Patient says that shortly after discharge yesterday she developed n/v which has steadily progressed since then, unable to tolerate any PO including the antibiotic prescribed. She denies pain including abdominal pain. She has h/o multiple abdominal surgeries. Patient has ODT zofran at home which has not been effective with this n/v. She has long list of allergies which includes allergies to droperidol, compazine, phenergan. Patient does not use home oxygen Review of Systems Constitutional: reports: Reviewed and negative Eyes: reports: Reviewed and negative Ears: reports: Reviewed and negative Nose: reports: Reviewed and negative Throat: reports: Reviewed and negative Cardiac: reports: Reviewed and negative Respiratory: reports: Dyspnea, Cough. denies: Hemoptysis, Wheezing GI: reports: Nausea, Vomiting. denies: Abdominal Pain, Constipation, Diarrhea, Hematemesis, Bloody / black stool : denies: Dysuria, Frequency Musculoskeletal: reports: Reviewed and negative Neurologic: denies: Headache PD PAST MEDICAL HISTORY - Past Medical History Past Medical History: Yes Cardiovascular: Congestive heart failure, Hypertension Respiratory: Other Neuro: None, Headaches Endocrine/Autoimmune: Type 2 diabetes, Other GI: GERD, Colon polyps, Chronic diarrhea, Other SOLE ROUNDER: Ovarian cysts, Other : Incontinence HEENT: Chronic vision loss, Chronic sinusitis Psych: Depression, Anxiety, Obsessive compulsive disorder, Other Musculoskeletal: Osteoarthritis, Other Derm: Other - Past Surgical History Past Surgical History: Yes General: Cholecystectomy, Appendectomy, Bowel surgery, Other Ortho: Knee replacement /SOLE ROUNDER: 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, Oophrectomy Cardiovascular: Cardiac catheterization HEENT: Tonsil/Adenoidectomy - Present Medications Home Medications: Ambulatory Orders Medication Instructions Recorded Confirmed Aspirin [Aspirin EC] 650 mg PO 0800,1200,1600,2000 05/29/13 04/08/22 Metoprolol Tartrate 50 mg PO BID 05/29/13 04/08/22 Glimepiride 1 mg PO QDBREAKFAST 03/03/17 04/08/22 Fluticasone [Flonase] 1 sprays MATT DAILY 11/26/17 04/08/22 Esomeprazole Magnesium [Nexium] 40 mg PO DAILY 05/03/18 04/08/22 Cetirizine [ZyrTEC] 10 mg PO DAILY PM 09/06/18 04/08/22 predniSONE [Deltasone] 5 mg PO DAILY 09/06/18 04/08/22 buPROPion HCL [Bupropion HCl Sr] 150 mg PO BID 12/21/18 04/08/22 Nystatin [Nystop] 1 applic TOP QID PRN #1 bottle 12/24/18 04/08/22 Melatonin 5 mg SL QPM 03/02/20 04/08/22 Dicyclomine [Bentyl] 1 - 2 tab PO QID PRN #20 cap 08/03/21 04/08/22 Promethazine HCl/Codeine 5 ml PO TID PRN #150 ml 03/22/22 04/08/22 [Prometh-Codein 6.25-10 mg/5 ml] Albuterol Sulf [Ventolin Hfa 1 - 2 puffs INH Q4HR PRN #1 each 04/07/22 04/08/22 Inhaler] Benzonatate [Tessalon] 200 mg PO QID PRN #20 cap 04/07/22 04/08/22 HYDROmorphone [Dilaudid] 1 - 2 tab PO Q4H PRN #20 tablet 04/07/22 04/08/22 Ondansetron Odt [Zofran] 4 mg TL Q6H PRN #10 tablet 04/07/22 04/08/22 levoFLOXacin [Levofloxacin] 750 mg PO DAILY #6 tablet 04/07/22 04/08/22 - Allergies Allergies/Adverse Reactions: Allergies Allergy/AdvReac Type Severity Reaction Status Date / Time droperidol [From Inapsine] Allergy Severe EPS Verified 04/08/22 20:36 ibuprofen [From Motrin] Allergy Severe Anaphylaxis Verified 04/08/22 20:36 peanut Allergy Severe Anaphylaxis Verified 04/08/22 20:36 shellfish derived Allergy Severe Anaphylaxis Verified 04/08/22 20:36 Mnsuptw-IVQ-IyD Reductase Allergy Severe muscle pain Verified 04/08/22 20:36 Inhibitor [Pauvogv-Hiv-Paf Reductase Inhibitor] amoxicillin [Amoxicillin] Allergy Intermediate Hives Verified 04/08/22 20:36 cefazolin Allergy Intermediate Hives Verified 04/08/22 20:36 Cephalosporins Allergy Intermediate Hives Verified 04/08/22 20:36 clindamycin Allergy Intermediate Hives Verified 04/08/22 20:36 cyclobenzaprine Allergy Intermediate Hives/night Verified 04/08/22 20:36 [Cyclobenzaprine] castaneda erythromycin base Allergy Intermediate Hives Verified 04/08/22 20:36 [Erythromycin Base] potassium clavulanate * Allergy Intermediate Hives Verified 04/08/22 20:36 [From Augmentin] ketorolac tromethamine * Allergy Anaphylaxis Verified 04/08/22 20:36 [From Toradol] adhesive tape AdvReac Severe BLISTERS Verified 04/08/22 20:36 duloxetine AdvReac Severe Suicidal Verified 04/08/22 20:36 etanercept [From Enbrel] AdvReac Severe Nausea/vomm Verified 04/08/22 20:36 iting/cramp s methotrexate AdvReac Severe N/V/Cramps Verified 04/08/22 20:36 NSAIDS (Non-Steroidal AdvReac Severe Anaphylaxis Verified 04/08/22 20:36 Anti-Inflamma prochlorperazine AdvReac Severe EPS Verified 04/08/22 20:36 pseudoephedrine AdvReac Severe Tachycardia Verified 04/08/22 20:36 sumatriptan AdvReac Severe Widened QRS Verified 04/08/22 20:36 doxycycline AdvReac Intermediate Hives Verified 04/08/22 20:36 gabapentin AdvReac Intermediate Gait Verified 04/08/22 20:36 disturbance latex AdvReac Intermediate Sensitivity Verified 04/08/22 20:36 morphine AdvReac Unknown Verified 04/08/22 20:36 prochlorperazine edisylate * AdvReac Unknown Verified 04/08/22 20:36 [From Compazine] prochlorperazine maleate * AdvReac Unknown Verified 04/08/22 20:36 [From Compazine] promethazine [From Phenergan] AdvReac Hallucinati Verified 04/08/22 20:36 ons - Social History Does the pt smoke?: Yes Smoking Status: Current every day smoker Does the pt drink ETOH?: Yes Does the pt have substance abuse?: No - Immunizations Immunizations are current?: Yes - POLST Patient has POLST: Yes POLST Status: DNR PD ED PE NORMAL - Vitals Vital signs reviewed: Yes - General General: Alert and oriented X 3, Other (episodic vomiting during H+P) - HEENT HEENT: Other (tacky/pasty mucous membranes) - Cardiac Cardiac: RRR, No murmur - Respiratory Respiratory: No respiratory distress - Abdomen Abdomen: Soft, Non tender, Non distended - Derm Derm: Normal color, Warm and dry PD ED PE EXPANDED - Respiratory Respiratory: Rhonchi (bilateral lower lobes, L>R) - Abdomen Abdomen: Decreased BS Results - Vitals Vitals: Vital Signs - 24 hr 04/08/22 04/08/22 04/08/22 20:37 22:39 23:23 Temperature 36.7 C Heart Rate 99 99 91 Respiratory 20 21 25 H Rate Blood Pressure 168/98 H 140/88 H 125/74 O2 Saturation 97 93 84 L If not protocol : Oxygen Flow, liters/minute 04/08/22 04/09/22 04/09/22 23:24 01:00 02:07 Temperature 36.8 C Heart Rate 98 76 Respiratory 27 H 22 Rate Blood Pressure 122/72 96/78 O2 Saturation 94 91 L 92 If not protocol 2 2 2 : Oxygen Flow, liters/minute 04/09/22 04/09/22 03:19 03:20 Temperature Heart Rate Respiratory Rate Blood Pressure O2 Saturation 72 L 94 If not protocol 3 : Oxygen Flow, liters/minute Oxygen O2 Source [Without Activity] Room air O2 Source Nasal cannula - Labs Labs: Laboratory Tests 04/08/22 04/08/22 21:19 21:19 WBC 11.0 H RBC 4.83 Hgb 13.8 Hct 44.2 MCV 91.5 MCH 28.6 MCHC 31.2 L RDW 15.9 H Plt Count 299 MPV 9.1 Neut # (Auto) 9.2 H Lymph # (Auto) 0.9 L [place] # (Auto) 0.7 Eos # (Auto) 0.2 Baso # (Auto) 0.0 Absolute Nucleated RBC 0.00 Nucleated RBC % 0.0 Sodium 137 Potassium 3.0 L Chloride 92 L Carbon Dioxide 32 Anion Gap 13.0 BUN 8 Creatinine 0.5 Estimated GFR (MDRD) 124 Glucose 155 H Calcium 8.7 Magnesium 1.9 Total Bilirubin 0.9 AST 30 ALT 31 Alkaline Phosphatase 141 H Total Protein 6.7 Albumin 3.5 Globulin 3.2 Albumin/Globulin Ratio 1.1 Lipase 26 - Rads (name of study) CT A/P Radiology: Prelim report reviewed, See rad report chest xray Radiology: Prelim report reviewed, See rad report PD MEDICAL DECISION MAKING - ED course Complexity details: reviewed old records, reviewed results, re-evaluated patient, considered differential, d/w patient ED course: presents with chief complaint of intractable n/v; although there is no tenderness on abdominal exam, she has an extensive abdominal surgical history including incarcerated hernia. She also has h/o SBO, and she cannot recall her last BM tonight , thus CT A/P undertaken to assess for possible SBO. While there are no significant findings on this study from the abdominal standpoint, bilateral lower lung infiltrates (L>R) are clearly demonstrated. She is given IV fluids in ED and several doses of zofran with gradual improvement, but not resolution , of the nausea and episodic vomiting. Later in ED stay, she had increasing dyspnea and was noted to become very dyspneic and hypoxic with movements such as sitting up or turning in bed; at times her pulse ox dropped to mid 70s (with good pleth on monitor and dyspnea in proportion to these readings). She thus had 3 liters nasal canula oxygen placed. She is also given IV levaquin. I discussed the case with Dr. Rios ([facility]), accepts admission to [facility] hospitalist service. Her magnesium level is normal on this visit, although she is hypokalemic (3.0) and given 10 meq K rider in ED Departure - Departure Disposition: 66 [facility] DC/Xfer Clinical Impression: Hypokalemia, Intractable vomiting Pneumonia Qualifiers: Pneumonia type: due to unspecified organism Laterality: bilateral Lung location: lower lobe of lung Qualified Code(s): J18.9 - Pneumonia, unspecified organism Condition: Stable Discharge Date/Time: 04/09/22 06:01
[2022-04-08 21:34] LABS: BASOPHILS % (AUTO) 0.4 %; EOSINOPHILS # (AUTO) 0.2 10^3/uL (0.0-0.7); EOSINOPHILS % (AUTO) 1.6 %; HCT - HEMATOCRIT 44.2 % (37.0-47.0); HGB - HEMOGLOBIN 13.8 g/dL (12.0-16.0); LYMPHOCYTES # (AUTO) 0.9 10^3/uL (1.5-3.5); MEAN CORPUSCULAR HEMOGLOBIN 28.6 pg (27.0-31.0); MEAN CORPUSCULAR HGB CONC 31.2 g/dL (32.0-36.0); MEAN CORPUSCULAR VOLUME 91.5 fL (81.0-99.0); MEAN PLATELET VOLUME 9.1 fL (7.9-10.8); MONOCYTES # (AUTO) 0.7 10^3/uL (0.0-1.0); MONOCYTES % (AUTO) 6.1 %; NEUTROPHILS # (AUTO) 9.2 10^3/uL (1.5-6.6); NEUTROPHILS % (AUTO) 83.4 %; PLT - PLATELET COUNT 299 10^3/uL (130-450); RED BLOOD COUNT 4.83 10^6/uL (4.20-5.40); RED CELL DISTRIBUTION WIDTH 15.9 % (12.0-15.0)
[2022-04-08 21:38] LABS: ALBUMIN 3.5 g/dL (3.2-5.5); ALBUMIN/GLOBULIN RATIO 1.1 (1.0-2.2); BILIRUBIN,TOTAL 0.9 mg/dL (0.2-1.0); CALCIUM 8.7 mg/dL (8.5-10.3); CREATININE 0.5 mg/dL (0.4-1.0); MAGNESIUM 1.9 mg/dL (1.7-2.8); TOTAL PROTEIN 6.7 g/dL (6.7-8.2)
[2022-04-08] MEDS ORDERED: ONDANSETRON 4 MG/2 ML VIAL IVP STA (21:45)
[2022-04-08] MEDS ORDERED: SODIUM CHLORIDE 0.9% 1,000 ML IV STA (21:45)
[2022-04-08] MEDS ORDERED: levoFLOXacin 500 MG/100 ML 500 MG/100 ML BAG IV STA (21:46)
[2022-04-08] MEDS ORDERED: POTASSIUM CHLOR 10 MEQ/100 ML 10 MEQ/100 ML BAG IV STA (21:47)
[2022-04-08] MEDS ORDERED: iohexoL-300 100 ML VIAL ONE (22:49)
[2022-04-08] MEDS ORDERED: DIATRIZOATE MEGLU/DIATRIZO SOD 30 ML BOTTLE PO ONE (22:54)
[2022-04-08] MEDS ORDERED: ACETAMINOPHEN 1,000 MG/100 ML 1,000 MG/100 ML BAG IV ONE (23:29)
[2022-04-09] MEDS: ONDANSETRON 4 MG/2 ML VIAL IVP STA ×2 (00:18→00:27)
[2022-04-09] MEDS ORDERED: iohexoL-300 100 ML VIAL IVP ONE (01:16)
[2022-04-09] MEDS ORDERED: DIATRIZOATE MEGLU/DIATRIZO SOD 30 ML BOTTLE PO ONE (01:17)
--- NOTE | 2022-04-09 02:11 | CT Report ---
PROCEDURE: ABDOMEN/PELVIS W INDICATIONS: nausea/vomiting, h/o SBO CONTRAST: Omni 300 100ml TECHNIQUE: After the administration of intravenous contrast, 5 mm thick sections acquired from the diaphragms to the symphysis. 5 mm thick coronal and sagittal reformats were acquired. For radiation dose reducti on, the following was used: automated exposure control, adjustment of mA and/or kV according to ole ent size. COMPARISON: CT abdomen pelvis 05/15/2020, 08/03/2021. FINDINGS: Image quality: Excellent. Lung bases:There is bronchial wall thickening with confluent peribronchial areas of consolidation in the visualized left lower lobe. A small region of peribronchial consolidation also demonstrated medi ally in the right lower lobe. Within the visualized left upper lobe, there is a 0.4 cm pulmonary nodu le on series 6 image 2 which appears unchanged compared to the 05/15/2020 study. Heart: Heart is normal in size. ABDOMEN: Liver: No mass lesion. Gallbladder:Surgically absent. Biliary ducts: No biliary ductal dilatation. Pancreas: Unremarkable. Spleen: Normal in size. Adrenal Glands: No adrenal nodules. Kidneys and Ureters: No hydronephrosis.There are 2 nonobstructing stones within the left kidney me asuring up to 0.3 cm. Stomach and Bowel: Stomach, small bowel loops, and colon are normal in caliber and wall thickness. N o pericecal inflammatory changes to suggest appendicitis. There is colonic diverticulosis without acu te diverticulitis. Peritoneum: No abnormal intraperitoneal fluid. No free air. Ventral Wall: There are postsurgical changes within the ventral abdominal wall inferiorly with subcu taneous scarring noted. Abdominal Nodes: No retroperitoneal or mesenteric adenopathy by size criteria. Vessels: Aorta and inferior vena cava are normal in size. PELVIS: Pelvic Organs:Uterus is surgically absent. Bladder: Unremarkable. Pelvic Nodes: No enlarged lymph nodes. Miscellaneous: No inguinal hernias are seen. Bones: There is a mild superior endplate compression deformity of the T12 vertebral body anteriorly which appears unchanged. Visualized osseous structures demonstrate no suspicious focal lesions. IMPRESSION: 1. Bibasilar lower lobe consolidation, left greater than right, consistent with pneumonia. The distri bution raises the possibility of aspiration. 2. No evidence of bowel obstruction. 3. Left nephrolithiasis. Reviewed by: Jun Armenta MD on 04/09/2022 2:10 AM PDT Approved by: Jun Armenta MD on 04/09/2022 2:10 AM PDT Station ID: [id number]
[2022-04-09] MEDS ORDERED: SODIUM CHLORIDE 0.9% 1,000 ML IV STA (02:49)
--- NOTE | 2022-04-09 04:11 | HISTORY & PHYSICAL EXAMINATION ---
Chief Complaint - Chief Complaint Chief Complaint: nausea and vomiting History of Present Illness - Admitted From Admitted From:: home - History Obtained From History obtained from: patient Exam Limitations: telemedicine - History of Present Illness HPI Comment/Other: Ms Sanchez is a 66 yo F with hx DM II, HTN, hx arthritic pain on chronic predni sone 5 mg daily. Presents to ER with c/o intractable nausea, vomiting. Pt was seen in ER on 04/07, found to have pneumonia and dc home w Levnataliauin. Pt reports yesterday when she went to chart picker the prescription she vomited at the pharmacy, has had ongoing nausea and vomiting since then. Unable to keep any meds or food down. Several allergies, feeling better since Zofran in ER. She has also had cough x 1 month, productive, enterovirus/rhinovirus positive on 03/22 and 04/07. Pt reports intermittent diarrhea/constipation at baseline, has been having diarrhea since yesterday. Denies blood in stool. Reports fever last night. Denies abd pain, chills. Reports mild chronic LE swelling unchanged. Urin félix incontinence related to cough. Denies dysuria or hematuria. History - Past Medical History Cardiovascular: reports: Congestive heart failure, Hypertension Respiratory: reports: Other Neuro: reports: None, Headaches Endocrine/Autoimmune: reports: Type 2 diabetes, Other GI: reports: GERD, Colon polyps, Chronic diarrhea, Other BEVERAGE SPECIALIST: reports: Ovarian cysts, Other : reports: Incontinence HEENT: reports: Chronic vision loss, Chronic sinusitis Psych: reports: Depression, Anxiety, Obsessive compulsive disorder, Other Musculoskeletal: reports: Osteoarthritis, Other Derm: reports: Other MRSA Hx?: No - Past Surgical History General: reports: Cholecystectomy, Appendectomy, Bowel surgery, Other Ortho: reports: Knee replacement /BEVERAGE SPECIALIST: reports: 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, Oophrectomy Cardiovascular: reports: Cardiac catheterization HEENT: reports: Tonsil/Adenoidectomy - Family & Social History Family History Comment/Other: Patient's mother had asthma. Father had Alzheimer's disease and coronary artery disease and is . Patient's sister has PTSD from 911. 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 14 years ago she then went to [facility], [place] and finally worked here at [employer]. . She is originally from the [place] in [facility]. She lives alone with her dog. She does not have any biological children. She is not . She is a smoker and continue to smoke a pack a day and has b een smoking for 45 years. She does not drink alcohol. She did try to use cannibis for pain control but it did not work and she does not use any other illicit drugs. She describes a severe change in lifestyle when she first became ill ~2006. she has gradually lost her social network and has 2 friends plus her library club. Very lonely. Wants to . Would like. assisted suicide. - Substance History Use: Uses substance without health or social issues: Tobacco - POLST Patient has POLST: Yes POLST Status: DNR Meds/Allgy - Home Medications Home Medications: Ambulatory Orders Medication Instructions Recorded Confirmed Aspirin [Aspirin EC] 650 mg PO 0800,1200,1600,2000 05/29/13 04/08/22 Metoprolol Tartrate 50 mg PO BID 05/29/13 04/08/22 Glimepiride 1 mg PO QDBREAKFAST 03/03/17 04/08/22 Fluticasone [Flonase] 1 sprays MATT DAILY 11/26/17 04/08/22 Esomeprazole Magnesium [Nexium] 40 mg PO DAILY 05/03/18 04/08/22 Cetirizine [ZyrTEC] 10 mg PO DAILY PM 09/06/18 04/08/22 predniSONE [Deltasone] 5 mg PO DAILY 09/06/18 04/08/22 buPROPion HCL [Bupropion HCl Sr] 150 mg PO BID 12/21/18 04/08/22 Nystatin [Nystop] 1 applic TOP QID PRN #1 bottle 12/24/18 04/08/22 Melatonin 5 mg SL QPM 03/02/20 04/08/22 Dicyclomine [Bentyl] 1 - 2 tab PO QID PRN #20 cap 08/03/21 04/08/22 Albuterol Sulf [Ventolin Hfa 1 - 2 puffs INH Q4HR PRN #1 inhaler 10/19/21 04/08/22 Inhaler] Benzonatate [Tessalon] 200 mg PO QID PRN #20 cap 10/19/21 04/08/22 Benzonatate [Tessalon] 200 mg PO QID PRN #20 cap 03/22/22 04/08/22 Promethazine HCl/Codeine 5 ml PO TID PRN #150 ml 03/22/22 04/08/22 [Prometh-Codein 6.25-10 mg/5 ml] Albuterol Sulf [Ventolin Hfa 1 - 2 puffs INH Q4HR PRN #1 each 04/07/22 04/08/22 Inhaler] Benzonatate [Tessalon] 200 mg PO QID PRN #20 cap 04/07/22 04/08/22 HYDROmorphone [Dilaudid] 1 - 2 tab PO Q4H PRN #20 tablet 04/07/22 04/08/22 Ondansetron Odt [Zofran] 4 mg TL Q6H PRN #10 tablet 04/07/22 04/08/22 levoFLOXacin [Levofloxacin] 750 mg PO DAILY #6 tablet 04/07/22 04/08/22 - Allergies Allergies/Adverse Reactions: Allergies Allergy/AdvReac Type Severity Reaction Status Date / Time droperidol [From Inapsine] Allergy Severe EPS Verified 04/08/22 20:36 ibuprofen [From Motrin] Allergy Severe Anaphylaxis Verified 04/08/22 20:36 peanut Allergy Severe Anaphylaxis Verified 04/08/22 20:36 shellfish derived Allergy Severe Anaphylaxis Verified 04/08/22 20:36 Bkkenug-ZIR-QzV Reductase Allergy Severe muscle pain Verified 04/08/22 20:36 Inhibitor [Rskyupn-Jnv-Jsb Reductase Inhibitor] amoxicillin [Amoxicillin] Allergy Intermediate Hives Verified 04/08/22 20:36 cefazolin Allergy Intermediate Hives Verified 04/08/22 20:36 Cephalosporins Allergy Intermediate Hives Verified 04/08/22 20:36 clindamycin Allergy Intermediate Hives Verified 04/08/22 20:36 cyclobenzaprine Allergy Intermediate Hives/night Verified 04/08/22 20:36 [Cyclobenzaprine] castaneda erythromycin base Allergy Intermediate Hives Verified 04/08/22 20:36 [Erythromycin Base] potassium clavulanate * Allergy Intermediate Hives Verified 04/08/22 20:36 [From Augmentin] ketorolac tromethamine * Allergy Anaphylaxis Verified 04/08/22 20:36 [From Toradol] adhesive tape AdvReac Severe BLISTERS Verified 04/08/22 20:36 duloxetine AdvReac Severe Suicidal Verified 04/08/22 20:36 etanercept [From Enbrel] AdvReac Severe Nausea/vomm Verified 04/08/22 20:36 iting/cramp s methotrexate AdvReac Severe N/V/Cramps Verified 04/08/22 20:36 NSAIDS (Non-Steroidal AdvReac Severe Anaphylaxis Verified 04/08/22 20:36 Anti-Inflamma prochlorperazine AdvReac Severe EPS Verified 04/08/22 20:36 pseudoephedrine AdvReac Severe Tachycardia Verified 04/08/22 20:36 sumatriptan AdvReac Severe Widened QRS Verified 04/08/22 20:36 doxycycline AdvReac Intermediate Hives Verified 04/08/22 20:36 gabapentin AdvReac Intermediate Gait Verified 04/08/22 20:36 disturbance latex AdvReac Intermediate Sensitivity Verified 04/08/22 20:36 morphine AdvReac Unknown Verified 04/08/22 20:36 prochlorperazine edisylate * AdvReac Unknown Verified 04/08/22 20:36 [From Compazine] prochlorperazine maleate * AdvReac Unknown Verified 04/08/22 20:36 [From Compazine] promethazine [From Phenergan] AdvReac Hallucinati Verified 04/08/22 20:36 ons Review of Systems - Constitutional Constitutional: reports: Fever, Weakness, Poor appetite. denies: Chills - Cardiovascular Cariovascular: denies: Chest pain, Syncope - Respiratory Respiratory: reports: Cough, Sputum production, SOB with exertion - Gastrointestinal Gastrointestinal: reports: Diarrhea, Nausea, Vomiting - Genitourinary Genitourinary: reports: Incontinence. denies: Dysuria, Hematuria - Musculoskeletal Musculoskeletal: reports: Joint pain (chronic 2/2 arthritis) - Integumentary Integumentary: denies: Rash, Pruritis - All Other Systems All Other Systems: reports: Reviewed and negative Exam - Vital Signs Vital Signs: Vital Signs x48h Temp Pulse Resp BP Pulse Ox O2 Flow Rate 04/09/22 03:20 94 3 04/09/22 03:19 72 L 04/09/22 02:07 36.8 C 76 22 96/78 92 2 04/09/22 01:00 98 27 H 122/72 91 L 2 04/08/22 23:24 94 2 04/08/22 23:23 91 25 H 125/74 84 L 04/08/22 22:39 99 21 140/88 H 93 04/08/22 20:37 36.7 C 99 20 168/98 H 97 - Physical Exam General Appearance: positive: No acute distress, Alert Eyes Bilateral: positive: Normal inspection ENT: positive: ENT inspection nml Respiratory: positive: No respiratory distress Skin: positive: Color nml, No rash Neurologic/Psychiatric: positive: Oriented x3, Motor nml Conclusion/Plan - Lab Results Lab results reviewed: Yes Fish Bones: 04/08/22 21:19 04/08/22 21:19 - Diagnostic Imaging Results Diagnostic Imaging Results: positive: Final report reviewed - Other Other Results/Comments: Assessment/Plan: Intractable nausea/vomiting -Likely related to acute illness -CT abd/pelvis reviewed -Continue IV antiemetics PRN -Gentle IVF hydration -Clear liquid diet, advance as tolerated Bibasilar pneumonia L>R -Per CT report may be component of aspiration -Leukocytosis improved from 04/07 labs, afebrile -Continue IV abx -Nebs PRN -Ambulate as tolerated -F/u procalcitonin DM II -SSI Hx chronic prednisone for arthritic pain -Continue prednisone 5 mg daily Hx bowel surgery (details unclear) with chronic diarrhea -Stable -Hx hypomagnesemia w port in place for infusions outpatient - Mag 1.9, monitor Hypokalemia -K 3.0, supplementation ordered in ER -F/u a.m. labs Tobacco use -Cessation counseling -/-1 PPD, pt requests nicotine patch, ordered DNR - confirmed w patient DVT ppx: Lovenox sc Clinical telemedicine services delivered using interactive video audio telecommunications while the patient and the rendering provider were not in the same physical location. Core Measures - Anticipated LOS I expect patient to be DC'd or transferred within 96 hours.: Yes - DVT/VTE - Prophylaxis VTE/DVT Prophylaxis med ordered at admit?: Yes Telemedicine Consult Details - Provider Location & Consult Time Telemedicine consultation conducted via videoconferencing?: Yes List names and roles of persons who participated in consult:: Jorge Rios MD / ER physician / patient Telemedicine provider location:: [place] Time Telemedicine consult began:: 03:25 Time Telemedicine consult completed:: 04:45
[2022-04-09] MEDS ORDERED: SODIUM CHLORIDE FLUSH 0.9% 10 ML SYRINGE IVP PRN (04:15)
[2022-04-09] MEDS ORDERED: NICOTINE 14 MG PATCH TOP STA (04:19)
[2022-04-09] MEDS: SODIUM CHLORIDE 0.9% 1,000 ML IV SCH ×2 (05:58→15:41)
[2022-04-09 06:01] LABS: BASOPHILS % (AUTO) 0.2 %; EOSINOPHILS # (AUTO) 0.2 10^3/uL (0.0-0.7); EOSINOPHILS % (AUTO) 2.9 %; HCT - HEMATOCRIT 39.8 % (37.0-47.0); HGB - HEMOGLOBIN 12.7 g/dL (12.0-16.0); LYMPHOCYTES % (AUTO) 12.4 %; MEAN CORPUSCULAR HEMOGLOBIN 29.2 pg (27.0-31.0); MEAN CORPUSCULAR HGB CONC 31.9 g/dL (32.0-36.0); MEAN CORPUSCULAR VOLUME 91.5 fL (81.0-99.0); MEAN PLATELET VOLUME 8.9 fL (7.9-10.8); MONOCYTES # (AUTO) 0.7 10^3/uL (0.0-1.0); MONOCYTES % (AUTO) 8.2 %; NEUTROPHILS # (AUTO) 6.1 10^3/uL (1.5-6.6); NEUTROPHILS % (AUTO) 75.7 %; PLT - PLATELET COUNT 269 10^3/uL (130-450); RED BLOOD COUNT 4.35 10^6/uL (4.20-5.40); RED CELL DISTRIBUTION WIDTH 15.6 % (12.0-15.0)
[2022-04-09 06:17] LABS: CALCIUM 7.9 mg/dL (8.5-10.3); CREATININE 0.5 mg/dL (0.4-1.0); POTASSIUM 2.9 mmol/L (3.5-5.0)
[2022-04-09] MEDS: ONDANSETRON 4 MG/2 ML VIAL IVP PRN ×3 (06:20→18:41)
[2022-04-09] MEDS: IPRATROPIUM/ALBUTEROL 3 ML NEB INH PRN ×2 (06:36→10:58)
[2022-04-09] MEDS ORDERED: PANTOPRAZOLE 40 MG TABLET PO SCH (07:00)
[2022-04-09] MEDS: ENOXAPARIN 40 MG/0.4 ML SYRINGE SUBQ SCH (08:13)
[2022-04-09] MEDS: SODIUM CHLORIDE FLUSH 0.9% 10 ML SYRINGE IVP SCH ×2 (08:14→16:27)
--- NOTE | 2022-04-09 08:21 | XRAY Report ---
PROCEDURE: Chest 1 View X-Ray INDICATIONS: cough, hypoxia TECHNIQUE: One view of the chest was acquired. COMPARISON: 04/07/2022 FINDINGS: Surgical changes and devices: Left chest wall Port-A-Cath tip is in SVC.. Lungs and pleura: Subtle opacity in left lung base is again seen not significantly changed from prev ious study. No new area of airspace opacity. No significant pleural effusion or pneumothorax. Mediastinum: Mediastinal contours appear normal. Heart size is normal. Bones and chest wall: No suspicious bony lesions. Overlying soft tissues appear unremarkable. IMPRESSION: Stable appearing left basilar small infiltrate/atelectasis. No significant pleural effusion or gross pneumothorax. No discrepancies. Reviewed by: Arnoldo Wong MD on 04/09/2022 8:20 AM PDT Approved by: Arnoldo Wong MD on 04/09/2022 8:20 AM PDT Station ID: [id number]
[2022-04-09] MEDS ORDERED: predniSONE 20 MG TABLET PO SCH (09:00)
[2022-04-09] MEDS ORDERED: BUPROPION HCL 150 MG PO SCH (09:00)
[2022-04-09] MEDS ORDERED: NON FORMULARY MED (Esomeprazole Magnesium [Nexium] 40 MG Capsule.Dr) PO SCH (09:00)
--- NOTE | 2022-04-09 09:09 | PHARMACY PROGRESS NOTE ---
- Best Possible Medication History Admit Date and Time: 04/09/22 0415 Processed by: Nursing Medication History completed: Yes Secondary Source(s): Insurance records As the person ultimately responsible for medication therapy, providers are able to order a medication from an existing home medication list in [facility] via the "Reconcile Routine" prior to Confirmation of that medication by field support technician. Such practice is discouraged except when the physician, in their clinical judgment, deems that a medical need exists for a medication without regard to previous use.
[2022-04-09] MEDS: predniSONE 5 MG TABLET PO SCH (10:27)
[2022-04-09] MEDS: buPROPion SR 150 MG TABLET PO SCH ×2 (10:27→20:51)
[2022-04-09] MEDS: guaiFENesin 600 MG TABLET PO SCH ×2 (11:53→20:51)
[2022-04-09] MEDS ORDERED: POTASSIUM CHLORIDE 20 MEQ TABLET PO SCH (12:00)
[2022-04-09] MEDS: ACETAMINOPHEN 1,000 MG/100 ML 1,000 MG/100 ML BAG IV PRN (18:29)
[2022-04-09] MEDS: POTASSIUM CHLOR 10 MEQ/100 ML 10 MEQ/100 ML BAG IV SCH ×4 (18:41→21:54)
[2022-04-09] MEDS ORDERED: SCOPOLAMINE PATCH TOP SCH (19:00)
[2022-04-09] MEDS ORDERED: levoFLOXacin 750 MG/150 ML 750 MG/150 ML BAG IV SCH (21:00)
[2022-04-10] MEDS: ACETAMINOPHEN 1,000 MG/100 ML 1,000 MG/100 ML BAG IV PRN (01:24)
[2022-04-10] MEDS: SODIUM CHLORIDE FLUSH 0.9% 10 ML SYRINGE IVP SCH ×4 (01:25→23:33)
[2022-04-10] MEDS: SODIUM CHLORIDE 0.9% 1,000 ML IV SCH ×3 (02:59→21:47)
[2022-04-10] MEDS: PANTOPRAZOLE 40 MG VIAL IVP SCH (06:07)
[2022-04-10] MEDS: ONDANSETRON 4 MG/2 ML VIAL IVP PRN (08:17)
[2022-04-10] MEDS: guaiFENesin 600 MG TABLET PO SCH ×2 (08:19→20:13)
[2022-04-10] MEDS: predniSONE 5 MG TABLET PO SCH (08:19)
[2022-04-10] MEDS: buPROPion SR 150 MG TABLET PO SCH ×2 (08:19→20:13)
[2022-04-10] MEDS: ENOXAPARIN 40 MG/0.4 ML SYRINGE SUBQ SCH (08:20)
[2022-04-10] MEDS: IPRATROPIUM/ALBUTEROL 3 ML NEB INH PRN (08:27)
[2022-04-10] MEDS: ACETAMINOPHEN 325 MG TABLET PO PRN (13:47)
[2022-04-10] MEDS: MIN OIL/DIMETHICON/COCONUT OIL 92 GM TUBE TOP SCH ×2 (13:49→20:13)
[2022-04-10 14:59] LABS: BUN - BLOOD UREA NITROGEN < 5 mg/dL (6-20); CREATININE 0.5 mg/dL (0.4-1.0); GFR - MDRD 124 (>89); MAGNESIUM 1.4 mg/dL (1.7-2.8)
[2022-04-10 15:17] LABS: CALCIUM 8.4 mg/dL (8.5-10.3); CARBON DIOXIDE - CO2 30 mmol/L (21-32); CHLORIDE 98 mmol/L (101-111); GLUCOSE 150 mg/dL (70-100); POTASSIUM 3.1 mmol/L (3.5-5.0); SODIUM 136 mmol/L (135-145)
--- NOTE | 2022-04-10 18:06 | PROVIDER PROGRESS NOTE ---
Subjective - Prog Note Date Prog Note Date: 04/10/22 Prog Note Time: 18:04 - Subjective Pt reports feeling: Improved Subjective: Its been a long day for her. She feels like she has not eaten solid food since March 13. Maybe she ate 1 meal. Her coughing would then induce dry heaves. She also has a large ventral hernia that if she presses on it causes dry heaves. So yesterday she requested that all of her medications be made IV and refused to take anything p.o. This evening she is now requesting mashed potatoes. I explained that if she is able to take mashed potato she can take oral medication. So switched to Tylenol back to p.o. She is willing to take her Levaquin p.o. She does not want to take her potassium by mouth and wants to take it IV rider. She is exhausted. She thinks that she may want to go home tomorrow so she can get a good night sleep. Current Medications - Current Medications Current Medications: Active Medications Acetaminophen (Acetaminophen 325 Mg Tablet) 650 mg PO Q4HR PRN PRN Reason: Pain 1 to 4, or Fever Last Admin: 04/10/22 13:47 Dose: 650 mg Albuterol/Ipratropium (Ipratropium/Albuterol 3 Ml Neb) 3 ml INH Q4HR PRN PRN Reason: Wheezing Last Admin: 04/10/22 08:27 Dose: 3 ml Bupropion HCl (Bupropion Sr 150 Mg Tablet) 150 mg PO BID [facility] Last Admin: 04/10/22 08:19 Dose: 150 mg Enoxaparin Sodium (Enoxaparin 40 Mg/0.4 Ml Syringe) 40 mg SUBQ DAILY [facility] Last Admin: 04/10/22 08:20 Dose: 40 mg Guaifenesin (Guaifenesin 600 Mg Tablet) 600 mg PO BID [facility] Last Admin: 04/10/22 08:19 Dose: 600 mg Sodium Chloride (Normal Saline 0.9%) 1,000 mls @ 100 mls/hr IV .Q10H [facility] Last Admin: 04/10/22 13:01 Dose: 100 mls/hr Potassium Chloride (Potassium Chloride) 10 meq in 100 mls @ 100 mls/hr IV Q1H [facility] Stop: 04/10/22 21:59 Levofloxacin (Levofloxacin 250 Mg Tablet) 750 mg PO DAILY [facility] Mineral Oil (Min Oil/Dimethicon/Coconut Oil 92 Gm Tube) 1 applic TOP BID [facility] Last Admin: 04/10/22 13:49 Dose: 1 applic Ondansetron HCl (Ondansetron 4 Mg/2 Ml Vial) 4 mg IVP Q6HR PRN PRN Reason: Nausea / Vomiting Last Admin: 04/10/22 08:17 Dose: 4 mg Pantoprazole Sodium (Pantoprazole 40 Mg Vial) 40 mg IVP QDAC [facility] Last Admin: 04/10/22 06:07 Dose: 40 mg Prednisone (Prednisone 5 Mg Tablet) 5 mg PO DAILYWM [facility] Last Admin: 04/10/22 08:19 Dose: 5 mg Scopolamine HBr (Scopolamine Patch) 1 patch TOP Q3D [facility] Last Admin: 04/09/22 19:51 Dose: 1 patch Sodium Chloride (Sodium Chloride Flush 0.9% 10 Ml Syringe) 10 ml IVP PRN PRN PRN Reason: NEEDED PER PROVIDER ORDERS Sodium Chloride (Sodium Chloride Flush 0.9% 10 Ml Syringe) 10 ml IVP 0100,0900,1700 [facility] Last Admin: 04/10/22 16:52 Dose: Not Given Aspirin [Aspirin EC] 650 mg PO 0800,1200,1600,2000 05/29/13 Metoprolol Tartrate 50 mg PO BID 05/29/13 Glimepiride 1 mg PO QDBREAKFAST 03/03/17 Fluticasone [Flonase] 1 sprays MATT DAILY 11/26/17 Esomeprazole Magnesium [Nexium] 40 mg PO DAILY 05/03/18 Cetirizine [ZyrTEC] 10 mg PO DAILY PM 09/06/18 predniSONE [Deltasone] 5 mg PO DAILY 09/06/18 buPROPion HCL [Bupropion HCl Sr] 150 mg PO BID 12/21/18 Melatonin 5 mg SL QPM 03/02/20 Objective - Vital Signs/Intake & Output Reviewed Vital Signs: Yes Vital Signs: Vital Signs x48h Temp Pulse Resp BP Pulse Ox 04/10/22 17:00 37.4 C 91 18 145/79 H 94 04/10/22 11:13 37.0 C 102 H 18 131/86 H 90 L Intake & Output: Intake & Output 04/07/22 04/08/22 04/09/22 10/27/22 23:59 23:59 23:59 23:59 Intake Total 1100 3151.667 2500 Output Total 1050 950 Balance 1100 2101.667 1550 - Objective General Appearance: positive: No acute distress, Alert, Other (Short statured female at 5 foot tall, 109 kg.) Eyes Bilateral: positive: PERRL, EOMI ENT: positive: No signs of dehydration Neck: positive: No JVD. negative: Stiff neck Respiratory: positive: No respiratory distress, Other (Throughout the day she daigle s had a dry hacking cough, occasionally I hear her having dry heaves). negative: Wheezes, Rales, Rhonchi Cardiovascular: positive: Regular rate & rhythm Abdomen: positive: Nml bowel sounds Skin: positive: Warm, Dry Extremities: positive: No pedal edema Neurologic/Psychiatric: positive: Oriented x3, CN's nml (2-12), Motor nml - Lab Results Fish Bones: 04/09/22 05:50 04/10/22 14:30 Other Labs: Lab Results x24hrs 04/10/22 Range/Units 14:30 Sodium 136 (135-145) mmol/L Potassium 3.1 L (3.5-5.0) mmol/L Chloride 98 L (101-111) mmol/L Carbon Dioxide 30 (21-32) mmol/L Anion Gap 8.0 (6-13) BUN < 5 L (6-20) mg/dL Creatinine 0.5 (0.4-1.0) mg/dL Estimated GFR (MDRD) 124 (>89) Glucose 150 H (70-100) mg/dL Calcium 8.4 L (8.5-10.3) mg/dL Magnesium 1.4 L (1.7-2.8) mg/dL Assessment/Plan - Problem List (1) Intractable nausea and vomiting Impression: Due to #2. Now that we have managed to control her cough and treat her lung infection, she can start processing p.o. she feels. Will return medications to p.o. status. Continue IV fluids for hydration. If she tolerates all of this tonight she could possibly go home tomorrow (2) Hyperactive gag reflex Impression: From constant cough. Now that the cough is controlled hopefully the patient will be able to keep some food down (3) Pneumonia Impression: Without severe hypoxia. She does go to 90% on room air. She is afebrile. White cell count was 11,000 on admission and is now 8000. We will repeat tomorrow before discharge. Change medication back to p.o. Levaquin. Today will be the third dose. Hopefully she can get by which is having 2 more doses and be done with therapy. Qualifiers: Pneumonia type: due to unspecified organism Laterality: bilateral Lung location: lower lobe of lung Qualified Code(s): J18.9 - Pneumonia, unspecified organism (4) Hypokalemia Impression: Supplement IV per her request. (5) Controlled type 2 diabetes mellitus without complication, without long-term current use of insulin Impression: Glucose has been 150. At home she takes glimepiride. She can resume that when she goes home. At this time no need for insulin
[2022-04-10] MEDS: POTASSIUM CHLOR 10 MEQ/100 ML 10 MEQ/100 ML BAG IV SCH ×4 (18:46→21:49)
[2022-04-10] MEDS: levoFLOXacin 250 MG TABLET PO SCH (20:13)
[2022-04-11] MEDS: ACETAMINOPHEN 325 MG TABLET PO PRN (04:00)
[2022-04-11] MEDS: PANTOPRAZOLE 40 MG VIAL IVP SCH (06:34)
[2022-04-11 06:55] LABS: BASOPHILS % (AUTO) 0.3 %; EOSINOPHILS # (AUTO) 0.2 10^3/uL (0.0-0.7); EOSINOPHILS % (AUTO) 2.7 %; HCT - HEMATOCRIT 38.8 % (37.0-47.0); HGB - HEMOGLOBIN 12.4 g/dL (12.0-16.0); LYMPHOCYTES # (AUTO) 0.9 10^3/uL (1.5-3.5); LYMPHOCYTES % (AUTO) 11.5 %; MEAN CORPUSCULAR HEMOGLOBIN 29.5 pg (27.0-31.0); MEAN CORPUSCULAR VOLUME 92.2 fL (81.0-99.0); MONOCYTES # (AUTO) 0.8 10^3/uL (0.0-1.0); MONOCYTES % (AUTO) 10.3 %; NEUTROPHILS # (AUTO) 5.5 10^3/uL (1.5-6.6); NEUTROPHILS % (AUTO) 74.5 %; PLT - PLATELET COUNT 307 10^3/uL (130-450); RED BLOOD COUNT 4.21 10^6/uL (4.20-5.40); RED CELL DISTRIBUTION WIDTH 15.5 % (12.0-15.0); WHITE BLOOD COUNT 7.4 x10^3/uL (4.8-10.8)
[2022-04-11 07:05] LABS: BUN - BLOOD UREA NITROGEN < 5 mg/dL (6-20); CALCIUM 8.4 mg/dL (8.5-10.3); CARBON DIOXIDE - CO2 29 mmol/L (21-32); CHLORIDE 100 mmol/L (101-111); CREATININE 0.5 mg/dL (0.4-1.0); GFR - MDRD 124 (>89); GLUCOSE 115 mg/dL (70-100); MAGNESIUM 1.2 mg/dL (1.7-2.8); POTASSIUM 3.2 mmol/L (3.5-5.0); SODIUM 138 mmol/L (135-145)
[2022-04-11] MEDS ORDERED: MAGNESIUM SULFATE 2 GRAM 2 GM/50 ML BAG IV ONE (08:56)
[2022-04-11] MEDS ORDERED: LOPERAMIDE 2 MG CAPSULE PO PRN (08:57)
[2022-04-11] MEDS: ENOXAPARIN 40 MG/0.4 ML SYRINGE SUBQ SCH (09:25)
[2022-04-11] MEDS: SODIUM CHLORIDE 0.9% 1,000 ML IV SCH (09:26)
[2022-04-11] MEDS: buPROPion SR 150 MG TABLET PO SCH (09:27)
[2022-04-11] MEDS: levoFLOXacin 250 MG TABLET PO SCH (09:27)
[2022-04-11] MEDS: guaiFENesin 600 MG TABLET PO SCH (09:27)
[2022-04-11] MEDS: predniSONE 5 MG TABLET PO SCH (09:27)
--- NOTE | 2022-04-11 09:27 | Discharge Plan ---
Discharge Plan Problem Reviewed?: Yes Disposition: Home, Self Care Condition: Stable Prescriptions: Scopolamine Patch [Transderm-Scop] 1 patch TOP Q3D #1 patch Diet: Regular Activity Restrictions: Activity as Tolerated Shower Restrictions: No Driving Restrictions: No Health Concerns: You called an ambulance because you are having nausea and vomiting. The day before you had been seen in the emergency room and received a diagnosis of pneumonia. You were given a prescription for Levaquin and picked up the bottle but were not able to take it because of generalized abdominal aching, and intractable nausea and vomiting. In spite of getting Zofran, nebulizers, and IV fluids in the emergency room you were unable to keep food down and you were placed in observation in the hospital for the intractable nausea and vomiting. It seemed that you were having a severe cough. The cough was from the pneumonia. That cough would in turn induce a severe gag reflex and episodes of intractable vomiting, dry heaves. It took over a day and a half of IV fluids, antiemetics, control of your pneumonia for you to start keeping fluids down. During your stay you had some diarrhea and that in turn would make a low potassium and low magnesium occur. Those were supplemented IV. You are now able to keep food down, and feel that you are safe to go home with oral antibiotics. Plan of Treatment: 1. To complete antibiotic therapy with Levaquin for your pneumonia. You will need 5 more days of treatment. 2. You are still having occasional diarrhea and we recommend loperamide as needed 3. You should most likely take oral potassium and oral magnesium but you feel that those medicines make your diarrhea worse. We will still prescribe them and you will take them at your discretion. 4. Please see your primary care provider in follow-up. We would like her (TOÑO Roberts) to check your potassium and magnesium with the lab draw. You received potassium riders and a magnesium rider on the day of discharge to supplement you. 5. Scopolamine patch really really helps with your nausea. So we have given you 1 more patch as a prescription to waste picker at your pharmacy if you want 1. Care Goals: To return to independent living at home, and to complete treatment for pneumonia Assessment: Patient is alert, oriented, able to make her own decisions. States that she will follow through with care plan No Smoking: If you smoke, Please STOP! Call for help. Follow-up with: Brianne Cook ARNP [Primary Care Provider] -
[2022-04-11] MEDS: MIN OIL/DIMETHICON/COCONUT OIL 92 GM TUBE TOP SCH (09:28)
[2022-04-11] MEDS: SODIUM CHLORIDE FLUSH 0.9% 10 ML SYRINGE IVP SCH ×2 (09:31→15:00)
--- NOTE | 2022-04-11 10:07 | DISCHARGE SUMMARY ---
"Discharge Summary Admit Date: 04/09/22 Discharge Date: 04/11/22 Discharging Provider: Eileen Stoll MD Primary Care Provider: Brianne Cook MD Code Status: Do Not Attempt Resuscitation Condition at Discharge: Stable Discharge Disposition: 01 Home, Self Care - DIAGNOSES Discharge Diagnoses with Status of Each Condition: 1. Intractable nausea and vomiting 2. Hyperactive gag reflex 3. Pneumonia 4. Hypokalemia and hypomagnesemia 5. Controlled type 2 diabetes mellitus without complication without long-term use of current insulin 6. Diarrhea - HPI History of Present Illness: Ms Sanchez is a 66 yo F with hx DM II, HTN, hx arthritic pain on chronic prednisone 5 mg daily. Presents to ER with c/o intractable nausea, vomiting. Pt was seen in ER on 04/07, found to have pneumonia and dc home w Levaquin. Pt r eports yesterday when she went to fish bait picker the prescription she vomited at the pharmacy, has had ongoing nausea and vomiting since then. Unable to keep any meds or food down. Several allergies, feeling better since Zofran in ER. She has also had cough x 1 month, productive, enterovirus/rhinovirus positive on 03/22 and 04/07. Pt reports intermittent diarrhea/constipation at baseline, has been having diarrhea since yesterday. Denies blood in stool. Reports fever last night. Denies abd pain, chills. Reports mild chronic LE swelling unchanged. Urinary incontinence related to cough. Denies dysuria or hematuria. - Past Medical History Cardiovascular: reports: Congestive heart failure, Hypertension Respiratory: reports: Other Neuro: reports: None, Headaches Endocrine/Autoimmune: reports: Type 2 diabetes, Other GI: reports: GERD, Colon polyps, Chronic diarrhea, Other FILM SPOOLER: reports: Ovarian cysts, Other : reports: Incontinence HEENT: reports: Chronic vision loss, Chronic sinusitis Psych: reports: Depression, Anxiety, Obsessive compulsive disorder, Other Musculoskeletal: reports: Osteoarthritis, Other Derm: reports: Other MRSA Hx?: No - Past Surgical History General: reports: Cholecystectomy, Appendectomy, Bowel surgery, Other Ortho: reports: Knee replacement /FILM SPOOLER: reports: 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, Oophrectomy Cardiovascular: reports: Cardiac catheterization HEENT: reports: Tonsil/Adenoidectomy - CONSULTS | PROCEDURES Procedures: 1. Abdomen/pelvis CT have lung bases with bronchial wall thickening consistent with peribronchial areas of consolidation in the visualized left lower lobe. A small region of peribronchial consolidation also demonstrated medially in the right lower lobe. She has a pulmonary nodule in the left upper lobe that is unchanged from May 15, 2020 study. Abdomen solid organs were benign. No hydronephrosis. 2 nonobstructing kidney stones in the left kidney. Stomach and bowels were without inflammatory changes. Diverticulosis without diverticulitis. No abnormal intraperitoneal fluid or free air. Ventral abdominal wall has postsurgical changes. No evidence of bowel obstruction. 2. Chest x-ray with stable appearing left basilar small infiltrate and atelectasis. No effusion or pneumothorax. - HOSPITAL COURSE Hospital Course: And sitting down and talking to this patient, I realize that what she was describing was pneumonia, coughing, shortness of breath. Pneumonia in itself is not severe enough for hospitalization but the cough would induce a severe gag reflex which would then in turn induce intractable vomiting and inability to keep food down. She said that she has not been able to keep food down for quite a few days. We were able to give her IV fluids, start a scopolamine patch, Mucinex, nebulizers, to be able to control the cough. The scopolamine patch was actually her idea and it seemed to work. We also gave her the usual home med Decadron low-dose for a couple of days. With all of this she was finally able to start eating and keeping it down. Sequela of p.o. intake, and occasional diarrhea was hypokalemia and hypomagnesemia. She refused to take p.o. for that because she felt that made her very nauseated. She received magnesium sulfate 1 g before discharge as well as potassium riders again. I will be sending her home with potassium hoping that she will take it. I would like her to see her primary care provider, TOÑO Roberts, in the next 1 to 2 weeks. Complete 5 more days of antibiotics for pneumonia. She will be receiving 1 scopolamine patch take-home. Otherwise will be no changes to her home medication.An oxygen desat test was done. On room air at rest her O2 sat was 95%. Heart rate 98. Ambulation caused her desat to go to 87% with a heart rate of 102. Giving her 2 L of oxygen was able to raise her O2 sat to 94% with a heart rate of 96. As such I am sending her home on 2 L nasal cannula with exertion. At discharge temperature was 37 degrees. Heart rate 95. 95% on room air. 144/80. She is 5 foot tall and 109 kg. I watched her go from supine to sitting to standing without assist. She is asking for loperamide for her diarrhea. At discharge she can take that [id number]. She was able to walk to the bathroom, accomplish her toileting needs, stand at the sink and wash her hands, and get back in bed. There is no respiratory distress, no wheezing, no coughing with this. This is in contrast to yesterday were I could hear her coughing so hard she would induce gagging and dry heaving. She was able to eat 25% of yesterday's dinner and this morning's breakfast. She has a nasal tone of voice, some mild rhinorrhea. Neck has shotty adenopathy. But supple. Lungs have coarse upper airway sounds but otherwise clear without any increased respiratory effort. No crackles rhonchi wheezing. Regular rate and rhythm. Abdomen is hugely obese with a large easily reducible left upper quadrant ventral hernia. Extremities have trace edema. - ALLERGIES Allergies/Adverse Reactions: Allergies Allergy/AdvReac Type Severity Reaction Status Date / Time droperidol [From Inapsine] Allergy Severe EPS Verified 04/08/22 20:36 ibuprofen [From Motrin] Allergy Severe Anaphylaxis Verified 04/08/22 20:36 peanut Allergy Severe Anaphylaxis Verified 04/08/22 20:36 shellfish derived Allergy Severe Anaphylaxis Verified 04/08/22 20:36 Braberf-UOS-TeJ Reductase Allergy Severe muscle pain Verified 04/08/22 20:36 Inhibitor [Ffbtmeo-Wqt-Sad Reductase Inhibitor] amoxicillin [Amoxicillin] Allergy Intermediate Hives Verified 04/08/22 20:36 cefazolin Allergy Intermediate Hives Verified 04/08/22 20:36 Cephalosporins Allergy Intermediate Hives Verified 04/08/22 20:36 clindamycin Allergy Intermediate Hives Verified 04/08/22 20:36 cyclobenzaprine Allergy Intermediate Hives/night Verified 04/08/22 20:36 [Cyclobenzaprine] castaneda erythromycin base Allergy Intermediate Hives Verified 04/08/22 20:36 [Erythromycin Base] potassium clavulanate * Allergy Intermediate Hives Verified 04/08/22 20:36 [From Augmentin] ketorolac tromethamine * Allergy Anaphylaxis Verified 04/08/22 20:36 [From Toradol] adhesive tape AdvReac Severe BLISTERS Verified 04/08/22 20:36 duloxetine AdvReac Severe Suicidal Verified 04/08/22 20:36 etanercept [From Enbrel] AdvReac Severe Nausea/vomm Verified 04/08/22 20:36 iting/cramp s methotrexate AdvReac Severe N/V/Cramps Verified 04/08/22 20:36 NSAIDS (Non-Steroidal AdvReac Severe Anaphylaxis Verified 04/08/22 20:36 Anti-Inflamma prochlorperazine AdvReac Severe EPS Verified 04/08/22 20:36 pseudoephedrine AdvReac Severe Tachycardia Verified 04/08/22 20:36 sumatriptan AdvReac Severe Widened QRS Verified 04/08/22 20:36 doxycycline AdvReac Intermediate Hives Verified 04/08/22 20:36 gabapentin AdvReac Intermediate Gait Verified 04/08/22 20:36 disturbance latex AdvReac Intermediate Sensitivity Verified 04/08/22 20:36 morphine AdvReac Unknown Verified 04/08/22 20:36 prochlorperazine edisylate * AdvReac Unknown Verified 04/08/22 20:36 [From Compazine] prochlorperazine maleate * AdvReac Unknown Verified 04/08/22 20:36 [From Compazine] promethazine [From Phenergan] AdvReac Hallucinati Verified 04/08/22 20:36 ons - MEDICATIONS Home Medications: Ambulatory Orders Medication Instructions Recorded Confirmed Aspirin [Aspirin EC] 650 mg PO 0800,1200,1600,2000 05/29/13 04/08/22 Metoprolol Tartrate 50 mg PO BID 05/29/13 04/08/22 Glimepiride 1 mg PO QDBREAKFAST 03/03/17 04/08/22 Fluticasone [Flonase] 1 sprays MATT DAILY 11/26/17 04/08/22 Esomeprazole Magnesium [Nexium] 40 mg PO DAILY 05/03/18 04/08/22 Cetirizine [ZyrTEC] 10 mg PO DAILY PM 09/06/18 04/08/22 predniSONE [Deltasone] 5 mg PO DAILY 09/06/18 04/08/22 buPROPion HCL [Bupropion HCl Sr] 150 mg PO BID 12/21/18 04/08/22 Nystatin [Nystop] 1 applic TOP QID PRN #1 bottle 12/24/18 04/08/22 Melatonin 5 mg SL QPM 03/02/20 04/08/22 Dicyclomine [Bentyl] 1 - 2 tab PO QID PRN #20 cap 08/03/21 04/08/22 Promethazine HCl/Codeine 5 ml PO TID PRN #150 ml 03/22/22 04/08/22 [Prometh-Codein 6.25-10 mg/5 ml] Albuterol Sulf [Ventolin Hfa 1 - 2 puffs INH Q4HR PRN #1 each 04/07/22 04/08/22 Inhaler] Benzonatate [Tessalon] 200 mg PO QID PRN #20 cap 04/07/22 04/08/22 HYDROmorphone [Dilaudid] 1 - 2 tab PO Q4H PRN #20 tablet 04/07/22 04/08/22 Ondansetron Odt [Zofran Odt] 4 mg TL Q6H PRN #10 tablet 04/07/22 04/08/22 Loperamide [Imodium] 2 mg PO QID PRN cap 04/11/22 Potassium Chloride 16 meq PO BID #120 cap 04/11/22 Scopolamine Patch [Transderm-Scop] 1 patch TOP Q3D #1 patch 04/11/22 levoFLOXacin [Levofloxacin] 750 mg PO DAILY #5 tablet 04/11/22 04/08/22 - LABS Result Diagrams: 04/11/22 06:18 04/11/22 06:18"
[2022-04-11] MEDS: POTASSIUM CHLOR 10 MEQ/100 ML 10 MEQ/100 ML BAG IV SCH ×4 (10:31→13:52)
[2022-04-11 11:51] VITALS: BP 146/88
== END 2022-04-11 15:03 | disposition home or self-care (01) ==
LOC: EDUNIT# → ED 20:28 → MS2 04-09 04:15
PROVIDERS: ADMIT Student in an Organized Health Care Education/Training Program; ATTEND Specialist
DX: J18.9 Pneumonia, unspecified organism (principal); Z88.8 Allergy status to other drugs, medicaments and biological substances; I11.0 Hypertensive heart disease with heart failure; I50.9 Heart failure, unspecified; E11.9 Type 2 diabetes mellitus without complications; H54.7 Unspecified visual loss; F17.200 Nicotine dependence, unspecified, uncomplicated; E87.6 Hypokalemia; E83.42 Hypomagnesemia; R19.7 Diarrhea, unspecified; M19.90 Unspecified osteoarthritis, unspecified site; K21.9 Gastro-esophageal reflux disease without esophagitis; R59.0 Localized enlarged lymph nodes; E66.9 Obesity, unspecified; K43.9 Ventral hernia without obstruction or gangrene; F32.A Depression, unspecified; F41.9 Anxiety disorder, unspecified; F42.9 Obsessive-compulsive disorder, unspecified; D72.829 Elevated white blood cell count, unspecified; Z66 Do not resuscitate; Z68.42 Body mass index [BMI] 45.0-49.9, adult; Z79.52 Long term (current) use of systemic steroids; Z79.82 Long term (current) use of aspirin; Z79.899 Other long term (current) drug therapy; Z81.8 Family history of other mental and behavioral disorders; Z82.49 Family history of ischemic heart disease and other diseases of the circulatory system; Z82.5 Family history of asthma and other chronic lower respiratory diseases; Z88.1 Allergy status to other antibiotic agents; Z88.5 Allergy status to narcotic agent; Z88.6 Allergy status to analgesic agent; Z90.49 Acquired absence of other specified parts of digestive tract; Z90.710 Acquired absence of both cervix and uterus; Z91.010 Allergy to peanuts; Z91.013 Allergy to seafood; Z91.040 Latex allergy status; Z91.048 Other nonmedicinal substance allergy status
CPT/HCPCS: 36415; 71045; 74177; 80048; 80053; 83690; 83735; 84145; 85025; 94640; 94761; 96361; 96365; 96366; 96367; 96368; 96372; 96375; 96376; 99284; 99285; A6250; A9270; G0378; J0131; J1650; J3490; J7512; Q9963; Q9967

== ENCOUNTER 2022-11-20 18:30 | Emergency (ER) | payer MEDICARE ==
[2022-11-20] MEDS ORDERED: methylPREDNISolone SUCCINATE 125 MG/2 ML VIAL IVP STA (19:16)
--- NOTE | 2022-11-20 19:17 | ED Physician Documentation ---
History of Present Illness - Stated complaint Stated Complaint: SOA/PALPITATIONS - Chief complaint Chief Complaint: Cardiac - History obtained from History obtained from: Patient - Additonal information Additional information: 67-year-old woman with longstanding tobacco abuse, type 2 diabetes, hypertension, chronic hypomagnesemia and chronic arthritic pain on a baseline dose of prednisone 5 mg a day. She sold her house yesterday and developed a lot of stress today and feels like she is having an inflammatory reaction and would like to increase her steroids. She is very anxious but does not want anything for the anxiety. She feels like there is bubbles in her chest and having shortness of breath. Denies pedal edema or calf pain. 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 COMPUTER: Ovarian cysts, Other : Incontinence HEENT: Chronic vision loss, Chronic sinusitis Psych: Depression, Anxiety, Obsessive compulsive disorder, Other Musculoskeletal: Osteoarthritis, Other Derm: Other - Past Surgical History Past Surgical History: Yes General: Cholecystectomy, Appendectomy, Bowel surgery, Other Ortho: Knee replacement /CHART COMPUTER: 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, Oophrectomy Cardiovascular: Cardiac catheterization HEENT: Tonsil/Adenoidectomy - Present Medications Home Medications: Ambulatory Orders Medication Instructions Recorded Confirmed Aspirin [Aspirin EC] 650 mg PO 0800,1200,1600,199905/29/13 09/25/22 Metoprolol Tartrate 50 mg PO BID 05/29/13 09/25/22 Glimepiride 1 mg PO QDBREAKFAST 03/03/17 09/25/22 Fluticasone [Flonase] 1 sprays MATT DAILY 11/26/17 09/25/22 Esomeprazole Magnesium [Nexium] 40 mg PO DAILY 05/03/18 09/25/22 Cetirizine [ZyrTEC] 10 mg PO DAILY PM 09/06/18 09/25/22 predniSONE [Deltasone] 5 mg PO DAILY 09/06/18 09/25/22 buPROPion HCL [Bupropion HCl Sr] 150 mg PO BID 12/21/18 09/25/22 Nystatin [Nystop] 1 applic TOP QID PRN #1 bottle 12/24/18 09/25/22 Melatonin 5 mg SL QPM 03/02/20 09/25/22 Dicyclomine [Bentyl] 1 - 2 tab PO QID PRN #20 cap 08/03/21 09/25/22 Ondansetron Odt [Zofran Odt] 4 mg TL Q6H PRN #10 tablet 04/07/22 09/25/22 Loperamide [Imodium] 2 mg PO QID PRN cap 04/11/22 09/25/22 Potassium Chloride 16 meq PO BID #120 cap 04/11/22 09/25/22 Guaifenesin/Pseudoephedrne HCl 1 each PO BID 09/25/22 09/25/22 [Mucinex D ER 1,200-120 mg Tab] predniSONE [Deltasone] See Rx Instructions .ROUTE 11/20/22 .COMPLEX #21 tablet - Allergies Allergies/Adverse Reactions: Allergies Allergy/AdvReac Type Severity Reaction Status Date / Time droperidol [From Inapsine] Allergy Severe EPS Verified 04/24/22 11:44 ibuprofen [From Motrin] Allergy Severe Anaphylaxis Verified 04/24/22 11:44 peanut Allergy Severe Anaphylaxis Verified 04/24/22 11:44 shellfish derived Allergy Severe Anaphylaxis Verified 04/24/22 11:44 Zkgtyns-ASC-XiX Reductase Allergy Severe muscle pain Verified 04/24/22 11:44 Inhibitor [Sfrkjcu-Pbt-Vch Reductase Inhibitor] amoxicillin [Amoxicillin] Allergy Intermediate Hives Verified 04/24/22 11:44 cefazolin Allergy Intermediate Hives Verified 04/24/22 11:44 Cephalosporins Allergy Intermediate Hives Verified 04/24/22 11:44 clindamycin Allergy Intermediate Hives Verified 04/24/22 11:44 cyclobenzaprine Allergy Intermediate Hives/night Verified 04/24/22 11:44 [Cyclobenzaprine] castaneda erythromycin base Allergy Intermediate Hives Verified 04/24/22 11:44 [Erythromycin Base] potassium clavulanate * Allergy Intermediate Hives Verified 04/24/22 11:44 [From Augmentin] ketorolac tromethamine * Allergy Anaphylaxis Verified 04/24/22 11:44 [From Toradol] adhesive tape AdvReac Severe BLISTERS Verified 04/24/22 11:44 duloxetine AdvReac Severe Suicidal Verified 04/24/22 11:44 etanercept [From Enbrel] AdvReac Severe Nausea/vomm Verified 04/24/22 11:44 iting/cramp s methotrexate AdvReac Severe N/V/Cramps Verified 11/20/22 18:47 NSAIDS (Non-Steroidal AdvReac Severe Anaphylaxis Verified 11/20/22 18:47 Anti-Inflamma prochlorperazine AdvReac Severe EPS Verified 11/20/22 18:47 pseudoephedrine AdvReac Severe Tachycardia Verified 11/20/22 18:47 sumatriptan AdvReac Severe Widened QRS Verified 11/20/22 18:47 doxycycline AdvReac Intermediate Hives Verified 11/20/22 18:47 gabapentin AdvReac Intermediate Gait Verified 11/20/22 18:47 disturbance latex AdvReac Intermediate Sensitivity Verified 11/20/22 18:47 morphine AdvReac Unknown Verified 11/20/22 18:47 prochlorperazine edisylate * AdvReac Unknown Verified 11/20/22 18:47 [From Compazine] prochlorperazine maleate * AdvReac Unknown Verified 11/20/22 18:47 [From Compazine] promethazine [From Phenergan] AdvReac Hallucinati Verified 11/20/22 18:47 ons - Social History Does the pt smoke?: Yes Smoking Status: Current every day smoker Does the pt drink ETOH?: Yes Does the pt have substance abuse?: No - Immunizations Immunizations are current?: Yes - POLST Patient has POLST: Yes POLST Status: DNR PD ED PE NORMAL - Vitals Vital signs reviewed: Yes - General General: Alert and oriented X 3, Other (Tearful with hyperdynamic speech) - HEENT HEENT: PERRL, EOMI - Cardiac Cardiac: RRR, No murmur - Respiratory Respiratory: No respiratory distress, Clear bilaterally - Abdomen Abdomen: Non tender - Neuro Neuro: Alert and oriented X 3, Normal speech Results - Vitals Vitals: Vital Signs - 24 hr 11/20/22 11/20/22 11/20/22 18:35 18:46 19:16 Temperature 36.8 C 36.8 C Heart Rate 85 85 80 Respiratory 22 22 14 Rate Blood Pressure 111/77 111/77 158/55 H O2 Saturation 98 98 96 11/20/22 11/20/22 11/20/22 19:30 20:00 20:30 Temperature 36.5 C Heart Rate 82 80 78 Respiratory 14 16 18 Rate Blood Pressure 156/58 H 146/69 H 150/78 H O2 Saturation 96 94 96 11/20/22 11/20/22 11/20/22 21:00 21:30 22:00 Temperature 36.5 C 36.5 C Heart Rate 76 78 72 Respiratory 18 16 22 Rate Blood Pressure 148/78 H 146/80 H 140/80 H O2 Saturation 96 94 95 Oxygen O2 Source [] Room air O2 Source Room air - EKG (time done) 1853 EKG releavant findings:: EKG personally interpreted by author of this note. Relevant findings are: Rate: Rate (enter#) (83) Rhythm: NSR [place]: Normal QRS: Low voltage Ischemia: Non specific changes. No: ST elevation c/w ischemia, ST depression - Labs Labs: Laboratory Tests 11/20/22 11/20/22 11/20/22 19:25 19:25 19:25 WBC 7.9 RBC 4.71 Hgb 14.1 Hct 42.7 MCV 90.7 MCH 29.9 MCHC 33.0 RDW 15.7 H Plt Count 290 MPV 9.0 Neut # (Auto) 6.8 H Lymph # (Auto) 0.9 L [place] # (Auto) 0.2 Eos # (Auto) 0.0 Baso # (Auto) 0.0 Absolute Nucleated RBC 0.00 Nucleated RBC % 0.0 Sodium 139 Potassium 3.6 Chloride 102 Carbon Dioxide 27 Anion Gap 10.0 BUN 18 Creatinine 0.7 Estimated GFR (MDRD) 84 L Glucose 297 H Calcium 8.6 Magnesium 0.9 L* Total Bilirubin 0.4 AST 16 ALT 17 Alkaline Phosphatase 84 Troponin I High Sens 3.5 Total Protein 6.5 L Albumin 3.6 Globulin 2.9 Albumin/Globulin Ratio 1.2 Lipase 51 - Rads (name of study) Single view chest x-ray is unremarkable Relevant Findings:: Final report received, EMP independent interpretation of test PD Medical Decision Making - ED course ED course: She presents wrist requesting an increase in her steroids for an inflammatory reaction. We will do a cardiac work-up as well given her symptoms. Also check her magnesium as that is chronically low. Work-up demonstrates very low magnesium which was pleated 4 g IV. Cardiac work- up was negative with negative biomarkers and basically normal CBC. Departure - Departure Disposition: 01 Home, Self Care Clinical Impression: Hypomagnesemia, Anxiety Condition: Stable Instructions: ED Chest Pain NonCardiac Prescriptions: predniSONE [Deltasone] See Rx Instructions .ROUTE .COMPLEX #21 tablet Comments: Your magnesium today was 0.9, you received 2 doses of IV magnesium here. There is no evidence of acute heart issue. I am prescribing prednisone as requested. Return for new or worsening symptoms. Follow-up with your primary care physic janice, next available appointment.
[2022-11-20 19:28] LABS: BASOPHILS % (AUTO) 0.4 %; EOSINOPHILS % (AUTO) 0.1 %; HCT - HEMATOCRIT 42.7 % (37.0-47.0); HGB - HEMOGLOBIN 14.1 g/dL (12.0-16.0); LYMPHOCYTES # (AUTO) 0.9 10^3/uL (1.5-3.5); LYMPHOCYTES % (AUTO) 10.8 %; MEAN CORPUSCULAR HEMOGLOBIN 29.9 pg (27.0-31.0); MEAN CORPUSCULAR VOLUME 90.7 fL (81.0-99.0); MONOCYTES # (AUTO) 0.2 10^3/uL (0.0-1.0); NEUTROPHILS # (AUTO) 6.8 10^3/uL (1.5-6.6); NEUTROPHILS % (AUTO) 85.1 %; PLT - PLATELET COUNT 290 10^3/uL (130-450); RED BLOOD COUNT 4.71 10^6/uL (4.20-5.40); RED CELL DISTRIBUTION WIDTH 15.7 % (12.0-15.0); WHITE BLOOD COUNT 7.9 x10^3/uL (4.8-10.8)
[2022-11-20] MEDS ORDERED: ACETAMINOPHEN 500 MG TABLET PO STA (19:39)
[2022-11-20 19:47] LABS: ALBUMIN 3.6 g/dL (3.2-5.5); ALBUMIN/GLOBULIN RATIO 1.2 (1.0-2.2); BILIRUBIN,TOTAL 0.4 mg/dL (0.2-1.0); CALCIUM 8.6 mg/dL (8.5-10.3); CREATININE 0.7 mg/dL (0.4-1.0); POTASSIUM 3.6 mmol/L (3.5-5.0); TOTAL PROTEIN 6.5 g/dL (6.7-8.2)
[2022-11-20 19:50] LABS: MAGNESIUM 0.9 mg/dL (1.7-2.8)
[2022-11-20] MEDS ORDERED: MAGNESIUM SULFATE 2 GRAM 2 GM/50 ML BAG IV ONE ×2 (19:51)
--- NOTE | 2022-11-20 20:32 | XRAY Report ---
PROCEDURE: Chest 1 View X-Ray INDICATIONS: Chest Pain TECHNIQUE: One view of the chest was acquired. COMPARISON: 04/09/2022 FINDINGS: Surgical changes and devices: Left portacatheter terminates in the SVC. Lungs and pleura: Lung volumes are low limiting evaluation. The right costophrenic angle is excluded . No dense consolidation or pleural effusion. Mediastinum: Heart size is within Bones and chest wall: No suspicious bony lesions. Overlying soft tissues appear unremarkable. IMPRESSION: No acute radiographic abnormality. Low lung volumes limit evaluation. The right costophrenic angle is excluded. Reviewed by: Vance Perez MD on 11/20/2022 8:31 PM PDT Approved by: Vance Perez MD on 11/20/2022 8:31 PM PDT Station ID: [id number]
[2022-11-20 22:33] VITALS: BP 142/86
== END 2022-11-20 22:44 | disposition home or self-care (01) ==
LOC: ED 18:30
DX: E83.42 Hypomagnesemia (principal); F41.9 Anxiety disorder, unspecified; I10 Essential (primary) hypertension; E11.9 Type 2 diabetes mellitus without complications; Z79.84 Long term (current) use of oral hypoglycemic drugs; Z72.0 Tobacco use
CPT/HCPCS: 36415; 71045; 80053; 83690; 83735; 84484; 85025; 93005; 96365; 96366; 96368; 96375; 99284; A9270

== ENCOUNTER 2022-12-06 08:00 | Outpatient (CLI) | payer MEDICARE | END 2022-12-06 23:59 | disposition home or self-care (01) | LOC: LAB.N 08:00 | PROVIDERS: ATTEND Physician Assistant Medical | DX: N30.00 Acute cystitis without hematuria (principal) | CPT/HCPCS: 87086; 87181 ==

== ENCOUNTER 2022-12-21 10:15 | Outpatient (CLI) | payer MEDICARE | END 2022-12-21 10:16 | disposition critical access hospital (66) | LOC: EMS 10:15 | DX: R11.2 Nausea with vomiting, unspecified (principal); R19.7 Diarrhea, unspecified | CPT/HCPCS: A0425; A0429 ==

== ENCOUNTER 2022-12-21 10:37 | Observation (INO) | payer MEDICARE ==
[2022-12-21] MEDS ORDERED: SODIUM CHLORIDE 0.9% 1,000 ML IV STA (10:41)
[2022-12-21] MEDS ORDERED: ONDANSETRON 4 MG/2 ML VIAL IVP STA (10:42)
[2022-12-21 11:49] LABS: BASOPHILS % (AUTO) 0.6 %; EOSINOPHILS # (AUTO) 0.1 10^3/uL (0.0-0.7); EOSINOPHILS % (AUTO) 1.3 %; HCT - HEMATOCRIT 42.4 % (37.0-47.0); HGB - HEMOGLOBIN 13.6 g/dL (12.0-16.0); LYMPHOCYTES # (AUTO) 0.9 10^3/uL (1.5-3.5); LYMPHOCYTES % (AUTO) 14.1 %; MEAN CORPUSCULAR HEMOGLOBIN 29.3 pg (27.0-31.0); MEAN CORPUSCULAR HGB CONC 32.1 g/dL (32.0-36.0); MEAN CORPUSCULAR VOLUME 91.4 fL (81.0-99.0); MEAN PLATELET VOLUME 9.5 fL (7.9-10.8); MONOCYTES # (AUTO) 0.6 10^3/uL (0.0-1.0); MONOCYTES % (AUTO) 9.9 %; NEUTROPHILS # (AUTO) 4.6 10^3/uL (1.5-6.6); NEUTROPHILS % (AUTO) 73.6 %; PLT - PLATELET COUNT 296 10^3/uL (130-450); RED BLOOD COUNT 4.64 10^6/uL (4.20-5.40); RED CELL DISTRIBUTION WIDTH 16.3 % (12.0-15.0); WHITE BLOOD COUNT 6.3 x10^3/uL (4.8-10.8)
[2022-12-21 11:54] LABS: ALBUMIN 2.4 g/dL (3.2-5.5); ALBUMIN/GLOBULIN RATIO 1.3 (1.0-2.2); BILIRUBIN,TOTAL 0.4 mg/dL (0.2-1.0); CREATININE 0.4 mg/dL (0.4-1.0); TOTAL PROTEIN 4.2 g/dL (6.7-8.2)
[2022-12-21 12:01] LABS: CALCIUM 5.1 mg/dL (8.5-10.3)
[2022-12-21] MEDS ORDERED: POTASSIUM CHLOR 10 MEQ/100 ML 10 MEQ/100 ML BAG IV STA (12:02)
[2022-12-21] MEDS ORDERED: MAGNESIUM SULFATE 2 GRAM 2 GM/50 ML BAG IV ONE ×2 (12:31→18:19)
[2022-12-21] MEDS ORDERED: SODIUM CHLORIDE FLUSH 0.9% 10 ML SYRINGE IVP PRN (12:31)
[2022-12-21] MEDS ORDERED: HYDROmorphone 1 MG/ML CARPUJECT IVP STA (12:31)
[2022-12-21] MEDS ORDERED: PROCHLORPERAZINE 10 MG/2 ML VIAL IVP PRN (12:31)
[2022-12-21] MEDS ORDERED: oxyCODONE 5 MG TABLET PO PRN (12:31)
[2022-12-21] MEDS ORDERED: ACETAMINOPHEN 325 MG TABLET PO PRN (12:31)
--- NOTE | 2022-12-21 12:38 | ED Physician Documentation ---
History of Present Illness - Stated complaint Stated Complaint: N/V/D - Chief complaint Chief Complaint: Abd Pain - History obtained from History obtained from: Patient - Additonal information Additional information: The pt comes to the ED with CC of vomiting and diarrhea for 3 days. She states she can't keep anything down, and feels like her potassium and magnesium are low. C/o being generally weak. She has a h/o recurrent episodes of both vomiting and diarrhea. No fever/chills. No cough or SOB. 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: Ovarian cysts, Other : Incontinence HEENT: Chronic vision loss, Chronic sinusitis Psych: Depression, Anxiety, Obsessive compulsive disorder, Other Musculoskeletal: Osteoarthritis, Other Derm: Other - Past Surgical History Past Surgical History: Yes General: Cholecystectomy, Appendectomy, Bowel surgery, Other Ortho: Knee replacement /JAVA WE[employer] USER 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 DEVELOPER: 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, Oophrectomy Cardiovascular: Cardiac catheterization HEENT: Tonsil/Adenoidectomy - Present Medications Home Medications: Ambulatory Orders Medication Instructions Recorded Confirmed Aspirin [Aspirin EC] 650 mg PO 0800,1200,1600,2000 05/29/13 12/21/22 Metoprolol Tartrate 50 mg PO BID 05/29/13 12/21/22 Glimepiride 1 mg PO QDBREAKFAST 03/03/17 12/21/22 Fluticasone [Flonase] 2 sprays MATT DAILY PRN 11/26/17 12/21/22 Esomeprazole Magnesium [Nexium] 40 mg PO DAILY 05/03/18 12/21/22 Cetirizine [ZyrTEC] 10 mg PO QPM 09/06/18 12/21/22 predniSONE [Deltasone] 5 mg PO DAILY 09/06/18 12/21/22 buPROPion HCL [Bupropion HCl Sr] 150 mg PO BID 12/21/18 12/21/22 Melatonin 2.5 mg PO QPM 03/02/20 12/21/22 Loperamide [Imodium] 2 mg PO QID PRN cap 04/11/22 12/21/22 Acetaminophen [Tylenol] 650 mg PO BID 12/21/22 12/21/22 Cholecalciferol (Vitamin D3) 50 mcg PO DAILY 12/21/22 12/21/22 [Vitamin D3] Nystatin [Nystop] 1 applic TOP DAILY 12/21/22 12/21/22 guaiFENesin [Mucus Relief ER] 1,200 mg PO DAILY 12/21/22 12/21/22 Nystatin [Nystop] 1 applic TOP BID each 12/22/22 Potassium Chloride [Micro-K] 20 meq PO DAILYWM #30 cap 12/22/22 Scopolamine Patch [Transderm-Scop] 1 patch TOP Q3D #1 patch 12/22/22 - Allergies Allergies/Adverse Reactions: Allergies Allergy/AdvReac Type Severity Reaction Status Date / Time droperidol [From Inapsine] Allergy Severe EPS Verified 04/24/22 11:44 ibuprofen [From Motrin] Allergy Severe Anaphylaxis Verified 04/24/22 11:44 peanut Allergy Severe Anaphylaxis Verified 04/24/22 11:44 shellfish derived Allergy Severe Anaphylaxis Verified 04/24/22 11:44 Hhdlohp-DHQ-KwC Reductase Allergy Severe muscle pain Verified 04/24/22 11:44 Inhibitor [Xulfytx-Cho-Woh Reductase Inhibitor] amoxicillin [Amoxicillin] Allergy Intermediate Hives Verified 04/24/22 11:44 cefazolin Allergy Intermediate Hives Verified 04/24/22 11:44 Cephalosporins Allergy Intermediate Hives Verified 04/24/22 11:44 clindamycin Allergy Intermediate Hives Verified 04/24/22 11:44 cyclobenzaprine Allergy Intermediate Hives/night Verified 04/24/22 11:44 [Cyclobenzaprine] castaneda erythromycin base Allergy Intermediate Hives Verified 04/24/22 11:44 [Erythromycin Base] potassium clavulanate * Allergy Intermediate Hives Verified 04/24/22 11:44 [From Augmentin] ketorolac tromethamine * Allergy Anaphylaxis Verified 04/24/22 11:44 [From Toradol] adhesive tape AdvReac Severe BLISTERS Verified 04/24/22 11:44 duloxetine AdvReac Severe Suicidal Verified 04/24/22 11:44 etanercept [From Enbrel] AdvReac Severe Nausea/vomm Verified 04/24/22 11:44 iting/cramp s methotrexate AdvReac Severe N/V/Cramps Verified 11/20/22 18:47 NSAIDS (Non-Steroidal AdvReac Severe Anaphylaxis Verified 11/20/22 18:47 Anti-Inflamma prochlorperazine AdvReac Severe EPS Verified 11/20/22 18:47 pseudoephedrine AdvReac Severe Tachycardia Verified 11/20/22 18:47 sumatriptan AdvReac Severe Widened QRS Verified 11/20/22 18:47 doxycycline AdvReac Intermediate Hives Verified 11/20/22 18:47 gabapentin AdvReac Intermediate Gait Verified 11/20/22 18:47 disturbance latex AdvReac Intermediate Sensitivity Verified 11/20/22 18:47 morphine AdvReac Unknown Verified 11/20/22 18:47 prochlorperazine edisylate * AdvReac Unknown Verified 11/20/22 18:47 [From Compazine] prochlorperazine maleate * AdvReac Unknown Verified 11/20/22 18:47 [From Compazine] promethazine [From Phenergan] AdvReac Hallucinati Verified 11/20/22 18:47 ons - Social History Does the pt smoke?: Yes Smoking Status: Current every day smoker Does the pt drink ETOH?: Yes Does the pt have substance abuse?: No - Immunizations Immunizations are current?: Yes - POLST Patient has POLST: Yes POLST Status: DNR PD ED PE NORMAL - Vitals Vital signs reviewed: Yes - General General: Alert and oriented X 3, No acute distress, Well developed/nourished - HEENT HEENT: Atraumatic, PERRL, EOMI, Moist mucous membranes - Neck Neck: Supple, no meningeal sign - Cardiac Cardiac: RRR, No murmur, Strong equal pulses - Respiratory Respiratory: No respiratory distress, Clear bilaterally - Abdomen Abdomen: Soft, Other (Obese, mild diffuse tenderness.) - Derm Derm: Warm and dry - Extremities Extremities: No deformity - Neuro Neuro: Alert and oriented X 3 - Psych Psych: Normal mood, Normal affect Results - Vitals Vitals: Oxygen O2 Source [Without Activity] Room air O2 Source Room air - EKG (time done) 129 EKG releavant findings:: EKG personally interpreted by author of this note. Relevant findings are: Rate: Rate (enter#) (75) Rhythm: NSR [place]: Normal Intervals: Normal ID QRS: Normal Ischemia: Non specific changes Compare to prior EKG: Old EKG unavailable Computer interpretation: Agree with computer - Labs Labs: Laboratory Tests 12/21/22 12/21/22 12/21/22 11:19 11:19 11:19 WBC 6.3 RBC 4.64 Hgb 13.6 Hct 42.4 MCV 91.4 MCH 29.3 MCHC 32.1 RDW 16.3 H Plt Count 296 MPV 9.5 Neut # (Auto) 4.6 Lymph # (Auto) 0.9 L [place] # (Auto) 0.6 Eos # (Auto) 0.1 Baso # (Auto) 0.0 Absolute Nucleated RBC 0.00 Nucleated RBC % 0.0 Sodium 145 Potassium 2.0 L* Chloride 117 H Carbon Dioxide 23 Anion Gap 5.0 L BUN 8 Creatinine 0.4 Estimated GFR (MDRD) 160 Glucose 124 H Calcium 5.1 L* Magnesium 0.6 L* Total Bilirubin 0.4 AST 18 ALT 15 Alkaline Phosphatase 53 Total Protein 4.2 L Albumin 2.4 L Globulin 1.8 L Albumin/Globulin Ratio 1.3 Lipase 45 PD Medical Decision Making - ED course Complexity details: reviewed old records, reviewed results, re-evaluated patient, considered differential, d/w patient, d/w color consultant (Dr. Stoll) ED course: The pt was worked up with ER abd panel, CBC, and magnesium level, and found to have significantly decreased K+ at 2.0 and Mg++ at 0.6. She had been started on IV fluids, and was now also started on replacements for potassium and magnesium. I felt she would need to be admitted for adequate replenishment of her electrolytes. I spoke with Dr. Stoll, who agreed to admit the pt to her service. Departure - Departure Disposition: ED Place in Observation Clinical Impression: Hypokalemia, Hypocalcemia, Hypomagnesemia Vomiting Qualifiers: Vomiting type: bilious vomiting Nausea presence: with nausea Qualified Code(s): R11.14 - Bilious vomiting Condition: Fair Discharge Date/Time: 12/21/22 13:38
--- NOTE | 2022-12-21 12:55 | HISTORY & PHYSICAL EXAMINATION ---
Chief Complaint - Chief Complaint Chief Complaint: nausea and vomitting History of Present Illness - Admitted From Admitted From:: home via ambulance - History Obtained From Records Reviewed: [facility] History obtained from: Dr. Rios Exam Limitations: none - History of Present Illness HPI Comment/Other: This is a 67-year-old female who is well-known to this institution due to multiple episodes of nausea, vomiting resulting in severe electrolyte derangement. With this episode she was brought in by ambulance because she has been vomiting since 2:00 this morning. She was in the midst of selling her home. And in the last 3 weeks she bought a house and moved into it in the last couple of days. Bought a car this week. And then sold her large home 3 weeks ago. She has been living in a hotel for 3 weeks until she could move into her current home. Diet has been irregular. And her irritable bowel syndrome discussed the best of her. She suddenly woke up at 2:00 this morning with vomiting. And yellow-brownish liquid stool. No blood. No fever. No chills. She has bilateral lower abdominal pain and aching with this. Zofran makes it better. Temperature was 36.4, blood pressure 113/90, respirations 20 and she was 96% on room air. She is a potassium of 2, calcium of 5, magnesium of 0.6. Her past medical history is significant for History of small bowel obstruction. She has "over 20 laparoscopic surgeries". She has had a hysterectomy, appendectomy, cholecystectomy, and oophorectomy. Her last incarcerated hernia was in November 2018. Postoperatively she had a wound infection and returned to the hospital for an admission later on that month. She then had another admission in December 2018 for continued wound infection. She had a wound exploration and wound debridement with wound irrigation and mesh placed.Her last admission was in March 2022 where she was admitted for hyperactive gag reflex, intractable nausea and vomiting. That was also for hypokalemia and hypomagnesemia. She did not have bowel obstruction. With that admission she had some pneumonia which was causing a cough. The cough would induce a severe gag reflex which would then turn into intractable nausea and vomiting. Scopolamine patch was used at her request and it worked well. Her primary care provider is Brianne longoria. 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 No longer on opiates. - Past Surgical History General: reports: Cholecystectomy, Appendectomy, Bowel surgery, Other ("20" laparoscopies) Ortho: reports: Knee replacement /NETWORK PRICING CONSULTANT: reports: 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, Oophrectomy Cardiovascular: reports: Cardiac catheterization HEENT: reports: Tonsil/Adenoidectomy - Family & Social History Family History Comment/Other: Patient's mother had asthma. Father had Alzheimer's disease and coronary artery disease and is . Patient's sister has PTSD from 02/23 and OA. 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 14 years ago she then went [facility] and finally worked here at [facility]. She is originally from the [place] [facility]. She lives alone with her dog. She does not have any biological children. She is not . She is a smoker of up to 3 ppd and continue to smoke a pack a day and has been smoking for 45 years. She does not drink alcohol. She did try to use cannibis for pain control but it did not work and she does not use any other illicit drugs. She describes a severe change in lifestyle when she first became ill ~2006. she has gradually lost her social network and has 2 friends plus her library club. Very lonely. Would like. assisted suicide when the time comes. - Substance History Use: Uses substance without health or social issues: Tobacco - POLST Patient has POLST: Yes POLST Status: DNR Meds/Allgy - Home Medications Home Medications: Ambulatory Orders Medication Instructions Recorded Confirmed Aspirin [Aspirin EC] 650 mg PO 0800,1200,1600,199905/29/13 12/21/22 Metoprolol Tartrate 50 mg PO BID 05/29/13 12/21/22 Glimepiride 1 mg PO QDBREAKFAST 03/03/17 12/21/22 Fluticasone [Flonase] 2 sprays MATT DAILY PRN 11/26/17 12/21/22 Esomeprazole Magnesium [Nexium] 40 mg PO DAILY 05/03/18 12/21/22 Cetirizine [ZyrTEC] 10 mg PO QPM 09/06/18 12/21/22 predniSONE [Deltasone] 5 mg PO DAILY 09/06/18 12/21/22 buPROPion HCL [Bupropion HCl Sr] 150 mg PO BID 12/21/18 12/21/22 Melatonin 2.5 mg PO QPM 03/02/20 12/21/22 Loperamide [Imodium] 2 mg PO QID PRN cap 04/11/22 12/21/22 Acetaminophen [Tylenol] 650 mg PO BID 12/21/22 12/21/22 Cholecalciferol (Vitamin D3) 50 mcg PO DAILY 12/21/22 12/21/22 [Vitamin D3] Nystatin [Nystop] 1 applic TOP DAILY 12/21/22 12/21/22 guaiFENesin [Mucus Relief ER] 1,200 mg PO DAILY 12/21/22 12/21/22 - Allergies Allergies/Adverse Reactions: Allergies Allergy/AdvReac Type Severity Reaction Status Date / Time droperidol [From Inapsine] Allergy Severe EPS Verified 04/24/22 11:44 ibuprofen [From Motrin] Allergy Severe Anaphylaxis Verified 04/24/22 11:44 peanut Allergy Severe Anaphylaxis Verified 04/24/22 11:44 shellfish derived Allergy Severe Anaphylaxis Verified 04/24/22 11:44 Waovzbb-AUV-XoU Reductase Allergy Severe muscle pain Verified 04/24/22 11:44 Inhibitor [Byfgcww-Wkx-Fxw Reductase Inhibitor] amoxicillin [Amoxicillin] Allergy Intermediate Hives Verified 04/24/22 11:44 cefazolin Allergy Intermediate Hives Verified 04/24/22 11:44 Cephalosporins Allergy Intermediate Hives Verified 04/24/22 11:44 clindamycin Allergy Intermediate Hives Verified 04/24/22 11:44 cyclobenzaprine Allergy Intermediate Hives/night Verified 04/24/22 11:44 [Cyclobenzaprine] castaneda erythromycin base Allergy Intermediate Hives Verified 04/24/22 11:44 [Erythromycin Base] potassium clavulanate * Allergy Intermediate Hives Verified 04/24/22 11:44 [From Augmentin] ketorolac tromethamine * Allergy Anaphylaxis Verified 04/24/22 11:44 [From Toradol] adhesive tape AdvReac Severe BLISTERS Verified 04/24/22 11:44 duloxetine AdvReac Severe Suicidal Verified 04/24/22 11:44 etanercept [From Enbrel] AdvReac Severe Nausea/vomm Verified 04/24/22 11:44 iting/cramp s methotrexate AdvReac Severe N/V/Cramps Verified 11/20/22 18:47 NSAIDS (Non-Steroidal AdvReac Severe Anaphylaxis Verified 11/20/22 18:47 Anti-Inflamma prochlorperazine AdvReac Severe EPS Verified 11/20/22 18:47 pseudoephedrine AdvReac Severe Tachycardia Verified 11/20/22 18:47 sumatriptan AdvReac Severe Widened QRS Verified 11/20/22 18:47 doxycycline AdvReac Intermediate Hives Verified 11/20/22 18:47 gabapentin AdvReac Intermediate Gait Verified 11/20/22 18:47 disturbance latex AdvReac Intermediate Sensitivity Verified 11/20/22 18:47 morphine AdvReac Unknown Verified 11/20/22 18:47 prochlorperazine edisylate * AdvReac Unknown Verified 11/20/22 18:47 [From Compazine] prochlorperazine maleate * AdvReac Unknown Verified 11/20/22 18:47 [From Compazine] promethazine [From Phenergan] AdvReac Hallucinati Verified 11/20/22 18:47 ons Review of Systems - Constitutional Constitutional: reports: Fatigue, Malaise, Weakness, Poor appetite - Eyes Eyes: denies: Pain, Irritation, Amaurosis - Ears, Nose & Throat Ears, Nose & Throat: reports: Hearing loss, Vertigo. denies: Ear pain, Hearing aids, Tinnitus, Nasal pain, Nasal discharge - Cardiovascular Cariovascular: reports: Lightheadedness. denies: Irregular heart rate, Palpitations, Chest pain, Syncope, Exertional dyspnea - Respiratory Respiratory: denies: Cough, Sputum production, Wheezing, Snoring, SOB at rest, SOB with exertion - Gastrointestinal Gastrointestinal: reports: Abdominal pain (It is not severe. It is just associated with the retching.), Abdominal distention, Diarrhea, Nausea, Vomiting - Genitourinary Genitourinary: denies: Dysuria, Frequency, Urgency, Hematuria - Musculoskeletal Musculoskeletal: reports: Back pain, Joint pain, Other (Musculoskeletal pain is a chronic problem for her). denies: Muscle pain - Integumentary Integumentary: reports: Rash (Underneath the abdominal pannus. In the last day she cannot believe how much yeast his gotten into her abdominal pannus and intertriginous fold). denies: Pruritis, Lesions, Dryness Prior Level of Functionality: She has not driven in 5 years but water self a car this week. She is independent with activities of daily living as long as she does not slowly. Uses a cane only outside her home. At home she does not use durable medical equipment. Lives alone. Pays her own bills. Dresses herself. Exam - Vital Signs Reviewed Vital Signs: Yes Vital Signs: Vital Signs x48h Temp Pulse Resp BP Pulse Ox 12/21/22 10:42 36.4 C L 82 20 113/90 H 96 - Physical Exam General Appearance: positive: Other (Short statured obese white female laying on her left side, has her right hand resting on her forehead and her eyes. Able to complete full sentences, no respiratory distress just complaining of nausea. In the last couple of hours she feels worse than she did when she got to the ER.) Eyes Bilateral: positive: PERRL, EOMI ENT: positive: No signs of dehydration Neck: positive: No JVD Respiratory: positive: No respiratory distress. negative: Wheezes, Rales, Rhonchi Cardiovascular: positive: Regular rate & rhythm. negative: Tachycardia Abdomen: positive: No distention, Other (Hyperactive bowel sounds. Just had another bowel movement when I came in to examine her). negative: Non-tender, No organomegaly, Nml bowel sounds Skin: positive: Warm, Dry Extremities: positive: Full ROM, No pedal edema Neurologic/Psychiatric: positive: Oriented x3, CN's nml (2-12), Motor nml Conclusion/Plan - Problem List (1) Hypocalcemia Conclusion/Plan: With hypokalemia, hypomagnesemia. Due to problem #2. This is a recurrent and almost chronic problem for this unfortunate female. Plan: Observation status. Aggressive IV supplementation of all of these electrolytes. I will start with calcium gluconate, 2 ampoules. She is already received 2 g of magnesium sulfate in the ER. She is also received one 10 mEq rider in the ER. I will recheck all of these stat at 2 PM, and then continue to supplement IV. I will also check a phosphorus level at 2 PM. (2) Vomiting Conclusion/Plan: She has a history of multiple, multiple partial small bowel obstructions. Imaging was not done in the ER. Plan: I will start evaluation with plain film. If she has air-fluid levels I will then need to do a CAT scan. Qualifiers: Vomiting type: bilious vomiting Nausea presence: with nausea Qualified Code(s): R11.14 - Bilious vomiting (3) Chronic diastolic heart failure Conclusion/Plan: Her last echocardiogram in December 2016 had mild concentric left ventricular hypertrophy. Her ejection fraction was normal at 70 to 75%. Right ventricle was normal in size and function. RVSP was mildly elevated at 49 mmHg. (4) Controlled type 2 diabetes mellitus without complication, without long-term current use of insulin Conclusion/Plan: I will start her on clear liquids because of the nausea and vomiting. I will hold her glimepiride. I will only do sliding scale insulin before meals. Check A1c in the morning. (5) Depression Qualifiers: Depression Type: major depressive disorder Major depression recurrence: recurrent Active/Remission status: in partial remission Qualified Code(s): F33.41 - Major depressive disorder, recurrent, in partial remission (6) History of reactive arthritis Conclusion/Plan: She is still on steroids. I will give her a 40 mg IV push of Solu-Medrol once. Resume usual steroids tomorrow. (7) Intractable nausea and vomiting Conclusion/Plan: She has irritable bowel syndrome. And she and I both think that the stress of selling her house, moving into new 400 square foot home (significant downsizing) and buying a new car may have been enough stress that her bowels reacted. There is no bloody stool. No fever with this. No elevation of white cell count. So I do not think I am going to be treating infectious diarrhea. Plan: Zofran IV since ODT makes her nauseated No Compazine since she is allergic to it No Dilaudid. She does not have enough abdominal pain that warrants opioids IV Tylenol for pain of headache and aching She is asking for Sweeney scopolamine patch and that will be given to her as well (8) Candidal intertrigo Conclusion/Plan: Nystatin powder - Lab Results Lab results reviewed: Yes Fish Bones: 12/21/22 11:19 12/21/22 16:50 - Diagnostic Imaging Results Diagnostic Imaging Results: positive: Final report reviewed Diagnostic Imaging Results Comments: Plain film KUB has a bowel gas pattern is normal. No air-fluid levels. Core Measures - Anticipated LOS I expect patient to be DC'd or transferred within 96 hours.: Yes - DVT/VTE - Prophylaxis VTE/DVT Device ordered at admit?: Yes
[2022-12-21] MEDS ORDERED: POTASSIUM PHOSPHATE 15 MMOL in SODIUM CHLORIDE 0.9% 250 ML IV SCH (13:00)
[2022-12-21] MEDS ORDERED: CALCIUM GLUCONATE IN NS 0.9% 2,000 MG/100 ML BAG IV ONE (13:00)
--- NOTE | 2022-12-21 14:27 | XRAY Report ---
PROCEDURE: Abdomen 1 View X-Ray INDICATIONS: intractable N/V w hx of multiple SBOs and ex lap TECHNIQUE: One view of the abdomen acquired. COMPARISON: None. FINDINGS: Surgical changes and devices: Left chest wall port is seen with the tip in the SVC.. Bowel: Bowel gas pattern is normal. Soft tissues: No suspicious abdominal calcifications. Visualized solid organ contours appear normal in size. Bones: No suspicious bony lesions. IMPRESSION: No acute abdominal pathology. Reviewed by: Abiodun Ramírez on 12/21/2022 1:26 PM VIRAL Approved by: Abiodun Ramírez on 12/21/2022 1:26 PM AK[facility] Station ID: [id number]
--- NOTE | 2022-12-21 16:04 | PHARMACY PROGRESS NOTE ---
- Best Possible Medication History Admit Date and Time: 12/21/22 1232 Processed by: Pharmacy Medication History completed: Yes Patient Interview: Completed Secondary Source(s): Pharmacy records, Insurance records As the person ultimately responsible for medication therapy, providers are able to order a medication from an existing home medication list in [facility] via the "Reconcile Routine" prior to Confirmation of that medication by client support representative. Such practice is discouraged except when the physician, in their clinical judgment, deems that a medical need exists for a medication without regard to previous use.
[2022-12-21] MEDS: ONDANSETRON ODT 4 MG TABLET TL PRN (16:35)
[2022-12-21 17:02] LABS: CALCIUM 7.9 mg/dL (8.5-10.3); CREATININE 0.5 mg/dL (0.4-1.0); POTASSIUM 2.8 mmol/L (3.5-5.0)
[2022-12-21 17:11] LABS: VBG PH 7.328 (7.31-7.41)
[2022-12-21 17:12] LABS: CALCIUM, IONIZED 1.03 mmol/L (1.15-1.33)
[2022-12-21] MEDS ORDERED: CALCIUM GLUC 1,000MG/50ML-NACL 1,000 MG/50 ML BAG IV ONE (18:20)
[2022-12-21] MEDS: SODIUM CHLORIDE FLUSH 0.9% 10 ML SYRINGE IVP SCH (18:51)
[2022-12-21] MEDS: POTASSIUM CHLOR 10 MEQ/100 ML 10 MEQ/100 ML BAG IV SCH ×4 (18:51→22:05)
[2022-12-21] MEDS ORDERED: ONDANSETRON 4 MG/2 ML VIAL IVP PRN (18:56)
[2022-12-21] MEDS ORDERED: SCOPOLAMINE PATCH TOP SCH (19:00)
[2022-12-21] MEDS ORDERED: methylPREDNISolone SUCCINATE 40 MG/ML VIAL IVP STA (19:02)
[2022-12-21] MEDS: ACETAMINOPHEN 1,000 MG/100 ML 1,000 MG/100 ML BAG IV PRN (19:56)
[2022-12-21] MEDS ORDERED: MIN OIL/DIMETHICON/COCONUT OIL 92 GM TUBE TOP PRN (20:28)
[2022-12-21] MEDS: INSULIN LISPRO 300 UNIT/3 ML PEN SUBQ SCH (20:32)
[2022-12-21] MEDS: NYSTATIN POWDER 15 GM TOP SCH (20:33)
[2022-12-22] MEDS: ACETAMINOPHEN 1,000 MG/100 ML 1,000 MG/100 ML BAG IV PRN (02:06)
[2022-12-22] MEDS: SODIUM CHLORIDE FLUSH 0.9% 10 ML SYRINGE IVP SCH ×2 (02:16→08:07)
[2022-12-22 06:29] LABS: CREATININE 0.5 mg/dL (0.4-1.0); MAGNESIUM 1.7 mg/dL (1.7-2.8); PHOSPHORUS 2.9 mg/dL (2.5-4.6); POTASSIUM 3.3 mmol/L (3.5-5.0)
[2022-12-22] MEDS ORDERED: POTASSIUM CHLORIDE 10 MEQ CAPSULE PO SCH (08:00)
[2022-12-22] MEDS: NYSTATIN POWDER 15 GM TOP SCH (08:09)
[2022-12-22] MEDS: INSULIN LISPRO 300 UNIT/3 ML PEN SUBQ SCH ×2 (08:09→13:09)
[2022-12-22] MEDS: ONDANSETRON ODT 4 MG TABLET TL PRN (08:48)
[2022-12-22 09:09] LABS: CALCIUM, IONIZED 1.03 mmol/L (1.15-1.33); VBG PH 7.393 (7.31-7.41)
[2022-12-22 12:21] VITALS: BP 117/76
[2022-12-22 12:27] LABS: ESTIMATED AVERAGE GLUCOSE 157 mg/dL (70-100); HEMOGLOBIN A1c% 7.1 % (4.27-6.07)
[2022-12-22 12:37] LABS: FOLATE 4.56 ng/mL (5.90 - >24.8)
--- NOTE | 2022-12-22 12:38 | Discharge Plan ---
Discharge Plan Problem Reviewed?: Yes Disposition: Home, Self Care Condition: Fair Prescriptions: Potassium Chloride [Micro-K] 20 meq PO DAILYWM #30 cap Scopolamine Patch [Transderm-Scop] 1 patch TOP Q3D #1 patch Diet: Diabetic Activity Restrictions: No Restrictions Shower Restrictions: No Driving Restrictions: No Assistance Devices: Walker [facility] Concerns: Unfortunately you have a long history of multiple, multiple small bowel obstructions. You have had numerous belly surgeries. You also have irritable bowel syndrome and you have been admitted many times with nausea, vomiting, diarrhea. This results in severe derangement in your potassium, calcium, magnesium. You had an abrupt onset of nausea vomiting and diarrhea at 2 in the morning after moving into your new house, buying a new car, and selling her house 3 weeks ago. You have responded very nicely to her IV fluids. You feel like you are safe to go home. Plan of Treatment: Continue potassium at home. I have written a prescription for 1 tablet a day. Please see your primary care provider in follow-up. Asked them to do a BMP, calcium, magnesium and phosphorus level to make sure your levels are stable. Care Goals: To start your new life in your new house. And to have reduction in your amount of irritable bowel syndrome Assessment: she is alert, oriented and still making her own decisions. No Smoking: If you smoke, Please STOP! Call for help.
[2022-12-22] MEDS ORDERED: MAGNESIUM SULFATE 1 GM in SODIUM CHLORIDE 0.9% 50 ML IV ONE (12:56)
[2022-12-22] MEDS ORDERED: DIPHENOX/ATROPINE 2.5/0.025 MG TABLET PO PRN (12:57)
[2022-12-22] MEDS ORDERED: MAGNESIUM SULFATE 2 GRAM 2 GM/50 ML BAG IV ONE (13:00)
[2022-12-22] MEDS ORDERED: DICYCLOMINE 10 MG CAPSULE PO SCH (13:00)
--- NOTE | 2022-12-23 10:07 | DISCHARGE SUMMARY ---
Discharge Summary Admit Date: 12/21/22 Discharge Date: 12/22/22 Discharging Provider: Eileen Stoll MD Primary Care Provider: TOÑO Roberts Code Status: Attempt Resuscitation Condition at Discharge: Fair Discharge Disposition: 01 Home, Self Care - DIAGNOSES Discharge Diagnoses with Status of Each Condition: (1) Hypocalcemia (2) hypokalemia, (3) hypomagnesemia. . (4) Vomiting with nausea and diarrhea (5) Chronic diastolic heart failure (6) Controlled type 2 diabetes mellitus without complication, without long-term current use of insulin (7) Depression (8) History of reactive arthritis (9) Candidal intertrigo - HPI History of Present Illness: This is a 67-year-old female who is well-known to this institution due to multiple episodes of nausea, vomiting resulting in severe electrolyte derangement. With this episode she was brought in by ambulance because she has been vomiting since 2:00 this morning. She was in the midst of selling her home. And in the last 3 weeks she bought a house and moved into it in the last couple of days. Bought a car this week. And then sold her large home 3 weeks ago. She has been living in a hotel for 3 weeks until she could move into her current home. Diet has been irregular. And her irritable bowel syndrome discussed the best of her. She suddenly woke up at 2:00 this morning with vomiting. And yellow-brownish liquid stool. No blood. No fever. No chills. She has bilateral lower abdominal pain and aching with this. Zofran makes it better. Temperature was 36.4, blood pressure 113/90, respirations 20 and she was 96% on room air. She is a potassium of 2, calcium of 5, magnesium of 0.6. Her past medical history is significant for History of small bowel obstruction. She has "over 20 laparoscopic surgeries". She has had a hysterectomy, appendectomy, cholecystectomy, and oophorectomy. Her last incarcerated hernia was in November 2018. Postoperatively she had a wound infection and returned to the hospital for an admission later on that month. She then had another admission in December 2018 for continued wound infection. She had a wound exploration and wound debridement with wound irrigation and mesh placed.Her last admission was in March 2022 where she was admitted for hyperactive gag reflex, intractable nausea and vomiting. That was also for hypokalemia and hypomagnesemia. She did not have bowel obstruction. With that admission she had some pneumonia which was causing a cough. The cough would induce a severe gag reflex which would then turn into intractable nausea and vomiting. Scopolamine patch was used at her request and it worked well. Her primary care provider is Brianne longoria. - Past Medical History Cardiovascular: reports: Congestive heart failure, Hypertension Respiratory: reports: Asthma, Other Neuro: reports: Headaches, Other (Raider's syndrome (brain swelling)) Endocrine/Autoimmune: reports: Type 2 diabetes, Other (obesity, steroid dependence for arthritis) GI: reports: GERD, Colon polyps, Chronic diarrhea, Other (mult recurrent incisional hernia w surgeries due to SBO) AIR QUALITY SPECIALIST: reports: Ovarian cysts (PCO), Other () : reports: Incontinence HEENT: reports: Chronic vision loss, Chronic sinusitis Psych: reports: Depression, Anxiety, Obsessive compulsive disorder, Other (suicide OD 2017) Musculoskeletal: reports: Osteoarthritis, Other (reactive arthritis from shigel la, uses steroids prn) Derm: reports: Other MRSA Hx?: No Other Past Medical History: chronic opioid user until new policy in PCP office cut her off abruptly in 2017 and admitted w crisis then. No longer on opiates. - Past Surgical History General: reports: Cholecystectomy, Appendectomy, Bowel surgery, Other ("20" laparoscopies) Ortho: reports: Knee replacement /AIR QUALITY SPECIALIST: reports: 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, Oophrectomy Cardiovascular: reports: Cardiac catheterization HEENT: reports: Tonsil/Adenoidectomy - CONSULTS | PROCEDURES Procedures: Plain film of the abdomen had no acute abdominal pathology. - HOSPITAL COURSE Hospital Course: She is placed in observation status and aggressively hydrated with IV fluids. She received potassium riders, magnesium riders and calcium riders. After a few hours her nausea and vomiting had abated. She had no further diarrhea. On the morning of discharge potassium was 3.3 and she received further potassium riders. She shared with us that she had sold her house 3 weeks ago. Had moved into a hotel to wait 3 weeks for her new house to close. She then moved into her new house 2 days ago. She also bought a car this week. She thinks that she was just under a lot of stress and her irritable bowel syndrome kicked into full gear. She felt stable enough for discharge the next morning. She was tolerating food. Ambulating in the room. Temperature was 36.8. Heart rate 84. Blood pressure 117/76. Respirations 18. 95% on room air. She is a 5 foot inch female who lo oks older than stated age. 115 kg. Neck girth is too large to view JVD. Diminished breath sounds at the bases but otherwise moving good air. Regular rate and rhythm of distant cardiac tones and a large AP diameter chest. The abdomen was diffusely obese, soft, nontender.Sofi intertrigo under the breast pannus, abdominal pannus and intertriginous folds. I am unable to assess for organomegaly. Extremities have trace edema. But she was able to get up out of bed walk to the bathroom and get back in a chair and back in bed without an assist. She was asked to follow-up with her primary care provider in the next 1 to 2 weeks. She has a regular sandra of infusions which has been helping tremendously. She will continue with those per the instructions of her PCP. - ALLERGIES Allergies/Adverse Reactions: Allergies Allergy/AdvReac Type Severity Reaction Status Date / Time droperidol [From Inapsine] Allergy Severe EPS Verified 04/24/22 11:44 ibuprofen [From Motrin] Allergy Severe Anaphylaxis Verified 04/24/22 11:44 peanut Allergy Severe Anaphylaxis Verified 04/24/22 11:44 shellfish derived Allergy Severe Anaphylaxis Verified 04/24/22 11:44 Xqhbszv-PCA-GuC Reductase Allergy Severe muscle pain Verified 04/24/22 11:44 Inhibitor [Ognixms-Asi-Pqp Reductase Inhibitor] amoxicillin [Amoxicillin] Allergy Intermediate Hives Verified 04/24/22 11:44 cefazolin Allergy Intermediate Hives Verified 04/24/22 11:44 Cephalosporins Allergy Intermediate Hives Verified 04/24/22 11:44 clindamycin Allergy Intermediate Hives Verified 04/24/22 11:44 cyclobenzaprine Allergy Intermediate Hives/night Verified 04/24/22 11:44 [Cyclobenzaprine] castaneda erythromycin base Allergy Intermediate Hives Verified 04/24/22 11:44 [Erythromycin Base] potassium clavulanate * Allergy Intermediate Hives Verified 04/24/22 11:44 [From Augmentin] ketorolac tromethamine * Allergy Anaphylaxis Verified 04/24/22 11:44 [From Toradol] adhesive tape AdvReac Severe BLISTERS Verified 04/24/22 11:44 duloxetine AdvReac Severe Suicidal Verified 04/24/22 11:44 etanercept [From Enbrel] AdvReac Severe Nausea/vomm Verified 04/24/22 11:44 iting/cramp s methotrexate AdvReac Severe N/V/Cramps Verified 11/20/22 18:47 NSAIDS (Non-Steroidal AdvReac Severe Anaphylaxis Verified 11/20/22 18:47 Anti-Inflamma prochlorperazine AdvReac Severe EPS Verified 11/20/22 18:47 pseudoephedrine AdvReac Severe Tachycardia Verified 11/20/22 18:47 sumatriptan AdvReac Severe Widened QRS Verified 11/20/22 18:47 doxycycline AdvReac Intermediate Hives Verified 11/20/22 18:47 gabapentin AdvReac Intermediate Gait Verified 11/20/22 18:47 disturbance latex AdvReac Intermediate Sensitivity Verified 11/20/22 18:47 morphine AdvReac Unknown Verified 11/20/22 18:47 prochlorperazine edisylate * AdvReac Unknown Verified 11/20/22 18:47 [From Compazine] prochlorperazine maleate * AdvReac Unknown Verified 11/20/22 18:47 [From Compazine] promethazine [From Phenergan] AdvReac Hallucinati Verified 11/20/22 18:47 ons - MEDICATIONS Home Medications: Ambulatory Orders Medication Instructions Recorded Confirmed Aspirin [Aspirin EC] 650 mg PO 0800,1200,1600,2000 05/29/13 12/21/22 Metoprolol Tartrate 50 mg PO BID 05/29/13 12/21/22 Glimepiride 1 mg PO QDBREAKFAST 03/03/17 12/21/22 Fluticasone [Flonase] 2 sprays MATT DAILY PRN 11/26/17 12/21/22 Esomeprazole Magnesium [Nexium] 40 mg PO DAILY 05/03/18 12/21/22 Cetirizine [ZyrTEC] 10 mg PO QPM 09/06/18 12/21/22 predniSONE [Deltasone] 5 mg PO DAILY 09/06/18 12/21/22 buPROPion HCL [Bupropion HCl Sr] 150 mg PO BID 12/21/18 12/21/22 Melatonin 2.5 mg PO QPM 03/02/20 12/21/22 Loperamide [Imodium] 2 mg PO QID PRN cap 04/11/22 12/21/22 Acetaminophen [Tylenol] 650 mg PO BID 12/21/22 12/21/22 Cholecalciferol (Vitamin D3) 50 mcg PO DAILY 12/21/22 12/21/22 [Vitamin D3] Nystatin [Nystop] 1 applic TOP DAILY 12/21/22 12/21/22 guaiFENesin [Mucus Relief ER] 1,200 mg PO DAILY 12/21/22 12/21/22 Nystatin [Nystop] 1 applic TOP BID each 12/22/22 Potassium Chloride [Micro-K] 20 meq PO DAILYWM #30 cap 12/22/22 Scopolamine Patch [Transderm-Scop] 1 patch TOP Q3D #1 patch 12/22/22 - LABS Result Diagrams: 12/21/22 11:19 12/22/22 04:50
== END 2022-12-22 15:15 | disposition home or self-care (01) ==
LOC: ED 10:37 → UNDOADMOB 12:32 → MS2 12:32 → MS3 12:32 → UNDODISOB 12-22 15:15
PROVIDERS: ADMIT Specialist; ATTEND Specialist
DX: E83.51 Hypocalcemia (principal); R11.14 Bilious vomiting; F33.41 Major depressive disorder, recurrent, in partial remission; K58.0 Irritable bowel syndrome with diarrhea; E83.42 Hypomagnesemia; E87.6 Hypokalemia; E11.9 Type 2 diabetes mellitus without complications; B37.2 Candidiasis of skin and nail; I11.0 Hypertensive heart disease with heart failure; I50.32 Chronic diastolic (congestive) heart failure; M02.30 Reiter's disease, unspecified site; Z66 Do not resuscitate; F17.210 Nicotine dependence, cigarettes, uncomplicated
CPT/HCPCS: 36415; 74018; 80048; 80053; 82330; 82607; 82746; 83036; 83690; 83735; 84100; 85025; 93005; 96365; 96366; 96367; 96368; 96375; 96376; 99284; 99285; A6250; A9270; G0378; J0131; J1170; J3490; Q0162

== ENCOUNTER 2023-01-05 20:26 | Outpatient (CLI) | payer MEDICARE | END 2023-01-05 20:27 | disposition critical access hospital (66) | LOC: EMS 20:26 | DX: R19.7 Diarrhea, unspecified (principal); R53.1 Weakness; M54.50 Low back pain, unspecified; G89.29 Other chronic pain | CPT/HCPCS: A0425; A0429 ==

== ENCOUNTER 2023-01-05 20:45 | Emergency (ER) | payer MEDICARE ==
--- NOTE | 2023-01-05 21:28 | ED Physician Documentation ---
History of Present Illness - Stated complaint Stated Complaint: DEHYDRATION - Chief complaint Chief Complaint: General - History obtained from History obtained from: Patient - Additonal information Additional information: The patient comes to the emergency department chief complaint of diarrhea secondary to her IBS over the last several days. Patient has been under a lot of stress lately due to a move and some work being done on her house. She states that this is triggered her IBS. She was just admitted to the hospital a couple of weeks ago for hypomagnesemia and hypokalemia in the setting of diarrhea plus vomiting, but states that she has not been vomiting this time. She gets weekly magnesium infusions and her last one was 4 days ago which time she received 4 g. Patient states she has been tired today. No other unusual symptoms. The patient does note that she has a history of sciatica and that it is flaring up on the left side for her right now. No other complaints at this time. PD PAST MEDICAL HISTORY - Past Medical History Cardiovascular: Congestive heart failure, Hypertension Respiratory: Other Neuro: None, Headaches Endocrine/Autoimmune: Type 2 diabetes, Other GI: GERD, Colon polyps, Chronic diarrhea, Other SOLDERER ELECTRONIC: Ovarian cysts, Other : Incontinence HEENT: Chronic vision loss, Chronic sinusitis Psych: Depression, Anxiety, Obsessive compulsive disorder, Other Musculoskeletal: Osteoarthritis, Other Derm: Other - Past Surgical History Past Surgical History: Yes General: Cholecystectomy, Appendectomy, Bowel surgery, Other Ortho: Knee replacement /SOLDERER ELECTRONIC: 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, Oophrectomy Cardiovascular: Cardiac catheterization HEENT: Tonsil/Adenoidectomy - Present Medications Home Medications: Ambulatory Orders Medication Instructions Recorded Confirmed Aspirin [Aspirin EC] 650 mg PO 0800,1200,1600,2000 05/29/13 12/21/22 Metoprolol Tartrate 50 mg PO BID 05/29/13 12/21/22 Glimepiride 1 mg PO QDBREAKFAST 03/03/17 12/21/22 Fluticasone [Flonase] 2 sprays MATT DAILY PRN 11/26/17 12/21/22 Esomeprazole Magnesium [Nexium] 40 mg PO DAILY 05/03/18 12/21/22 Cetirizine [ZyrTEC] 10 mg PO QPM 09/06/18 12/21/22 predniSONE [Deltasone] 5 mg PO DAILY 09/06/18 12/21/22 buPROPion HCL [Bupropion HCl Sr] 150 mg PO BID 12/21/18 12/21/22 Melatonin 2.5 mg PO QPM 03/02/20 12/21/22 Loperamide [Imodium] 2 mg PO QID PRN cap 04/11/22 12/21/22 Acetaminophen [Tylenol] 650 mg PO BID 12/21/22 12/21/22 Cholecalciferol (Vitamin D3) 50 mcg PO DAILY 12/21/22 12/21/22 [Vitamin D3] Nystatin [Nystop] 1 applic TOP DAILY 12/21/22 12/21/22 guaiFENesin [Mucus Relief ER] 1,200 mg PO DAILY 12/21/22 12/21/22 Nystatin [Nystop] 1 applic TOP BID each 12/22/22 Potassium Chloride [Micro-K] 20 meq PO DAILYWM #30 cap 12/22/22 Scopolamine Patch [Transderm-Scop] 1 patch TOP Q3D #1 patch 12/22/22 - Allergies Allergies/Adverse Reactions: Allergies Allergy/AdvReac Type Severity Reaction Status Date / Time droperidol [From Inapsine] Allergy Severe EPS Verified 01/05/23 21:05 ibuprofen [From Motrin] Allergy Severe Anaphylaxis Verified 01/05/23 21:05 peanut Allergy Severe Anaphylaxis Verified 01/05/23 21:05 shellfish derived Allergy Severe Anaphylaxis Verified 01/05/23 21:05 [id number]-ONV-FcN Reductase Allergy Severe muscle pain Verified 01/05/23 21:05 Inhibitor [Vmlmjco-Tru-Tcx Reductase Inhibitor] amoxicillin [Amoxicillin] Allergy Intermediate Hives Verified 01/05/23 21:05 cefazolin Allergy Intermediate Hives Verified 01/05/23 21:05 Cephalosporins Allergy Intermediate Hives Verified 01/05/23 21:05 clindamycin Allergy Intermediate Hives Verified 01/05/23 21:05 cyclobenzaprine Allergy Intermediate Hives/night Verified 01/05/23 21:05 [Cyclobenzaprine] castaneda erythromycin base Allergy Intermediate Hives Verified 01/05/23 21:05 [Erythromycin Base] potassium clavulanate * Allergy Intermediate Hives Verified 01/05/23 21:05 [From Augmentin] ketorolac tromethamine * Allergy Anaphylaxis Verified 01/05/23 21:05 [From Toradol] adhesive tape AdvReac Severe BLISTERS Verified 01/05/23 21:05 duloxetine AdvReac Severe Suicidal Verified 01/05/23 21:05 etanercept [From Enbrel] AdvReac Severe Nausea/vomm Verified 01/05/23 21:05 iting/cramp s methotrexate AdvReac Severe N/V/Cramps Verified 01/05/23 21:05 NSAIDS (Non-Steroidal AdvReac Severe Anaphylaxis Verified 01/05/23 21:05 Anti-Inflamma prochlorperazine AdvReac Severe EPS Verified 01/05/23 21:05 pseudoephedrine AdvReac Severe Tachycardia Verified 01/05/23 21:05 sumatriptan AdvReac Severe Widened QRS Verified 01/05/23 21:05 doxycycline AdvReac Intermediate Hives Verified 01/05/23 21:05 gabapentin AdvReac Intermediate Gait Verified 01/05/23 21:05 disturbance latex AdvReac Intermediate Sensitivity Verified 01/05/23 21:05 prochlorperazine edisylate * AdvReac Unknown Unknown Verified 01/05/23 21:05 [From Compazine] morphine AdvReac Unknown Verified 01/05/23 21:05 prochlorperazine maleate * AdvReac Unknown Verified 01/05/23 21:05 [From Compazine] promethazine [From Phenergan] AdvReac Hallucinati Verified 01/05/23 21:05 ons - Social History Does the pt smoke?: Yes Smoking Status: Current every day smoker Does the pt drink ETOH?: Yes Does the pt have substance abuse?: No - Immunizations Immunizations are current?: Yes - POLST Patient has POLST: Yes POLST Status: DNR PD ED PE NORMAL - Vitals Vital signs reviewed: Yes - General General: Alert and oriented X 3, No acute distress, Well developed/nourished - HEENT HEENT: Atraumatic, PERRL, EOMI, Moist mucous membranes - Neck Neck: Supple, no meningeal sign - Cardiac Cardiac: RRR, No murmur, Strong equal pulses - Respiratory Respiratory: No respiratory distress, Clear bilaterally - Abdomen Abdomen: Soft, Non tender, Non distended - Derm Derm: Normal color, Warm and dry, No rash - Extremities Extremities: No deformity - Neuro Neuro: Alert and oriented X 3 - Psych Psych: Normal mood, Normal affect Results - Vitals Vitals: Oxygen O2 Source [Without Activity] Room air O2 Source Room air - Labs Labs: Laboratory Tests 01/05/23 01/05/23 20:07 20:07 WBC 8.7 RBC 5.00 Hgb 14.9 Hct 46.7 MCV 93.4 MCH 29.8 MCHC 31.9 L RDW 16.2 H Plt Count 343 MPV 8.8 Neut # (Auto) 6.0 Lymph # (Auto) 1.7 [place] # (Auto) 0.7 Eos # (Auto) 0.2 Baso # (Auto) 0.1 Absolute Nucleated RBC 0.00 Nucleated RBC % 0.0 Sodium 136 Potassium 3.5 Chloride 100 L Carbon Dioxide 26 Anion Gap 10.0 BUN 20 Creatinine 0.7 Estimated GFR (MDRD) 84 L Glucose 107 H Calcium 9.2 Magnesium 1.0 L* Total Bilirubin 0.4 AST 43 H ALT 27 Alkaline Phosphatase 113 Total Protein 6.3 L Albumin 3.9 Globulin 2.4 Albumin/Globulin Ratio 1.6 Lipase 41 PD Medical Decision Making - ED course Complexity details: reviewed results, re-evaluated patient, considered differential, d/w patient ED course: . The patient's laboratory studies demonstrated a potassium was actually normal this time at 3.5. She was found to have magnesium of 1.0 and for this, she was given a 2 g infusion in the emergency department. I felt the patient was stable for discharge home. She is feeling better after hydration and has another infusion appointment in a few days to get another dose of magnesium. We have discussed staying on top of her hydration and electrolytes By drinking electrolyte drinks if she feels like she is getting behind on hydration. We have discussed the usual indications for return. Departure - Departure Disposition: Home, Self Care Clinical Impression: Dehydration, Hypomagnesemia Condition: Stable Instructions: Hypomagnesemia Dc, ED Dehydration Comments: You have been treated for dehydration today. Your magnesium was 1.0 and you were given 2 g of magnesium here in the emergency department for this. The level he had today was not much lower than usual but we did go ahead and boost it to get you through till when you have your next infusion. Amazingly, your potassium was normal at 3.5. As such, you are stable for discharge home. Please get plenty of fluids to drink and especially electrolyte solutions to keep your electrolytes up as much as possible. Forms: PCP List Discharge Date/Time: 01/06/23 01:22
[2023-01-05 22:19] LABS: BASOPHILS # (AUTO) 0.1 10^3/uL (0.0-0.1); BASOPHILS % (AUTO) 0.8 %; EOSINOPHILS # (AUTO) 0.2 10^3/uL (0.0-0.7); EOSINOPHILS % (AUTO) 2.2 %; HCT - HEMATOCRIT 46.7 % (37.0-47.0); HGB - HEMOGLOBIN 14.9 g/dL (12.0-16.0); LYMPHOCYTES # (AUTO) 1.7 10^3/uL (1.5-3.5); LYMPHOCYTES % (AUTO) 18.9 %; MEAN CORPUSCULAR HEMOGLOBIN 29.8 pg (27.0-31.0); MEAN CORPUSCULAR HGB CONC 31.9 g/dL (32.0-36.0); MEAN CORPUSCULAR VOLUME 93.4 fL (81.0-99.0); MEAN PLATELET VOLUME 8.8 fL (7.9-10.8); MONOCYTES # (AUTO) 0.7 10^3/uL (0.0-1.0); MONOCYTES % (AUTO) 8.4 %; NEUTROPHILS % (AUTO) 68.8 %; PLT - PLATELET COUNT 343 10^3/uL (130-450); RED CELL DISTRIBUTION WIDTH 16.2 % (12.0-15.0); WHITE BLOOD COUNT 8.7 x10^3/uL (4.8-10.8)
[2023-01-05] MEDS: SODIUM CHLORIDE 0.9% 1,000 ML IV STA (22:24)
[2023-01-05 22:31] LABS: ALBUMIN 3.9 g/dL (3.2-5.5); ALBUMIN/GLOBULIN RATIO 1.6 (1.0-2.2); BILIRUBIN,TOTAL 0.4 mg/dL (0.2-1.0); CALCIUM 9.2 mg/dL (8.5-10.3); CREATININE 0.7 mg/dL (0.6-1.3); POTASSIUM 3.5 mmol/L (3.5-4.5); TOTAL PROTEIN 6.3 g/dL (6.4-8.9)
[2023-01-05] MEDS: HYDROmorphone 0.5 MG/0.5 ML SYRINGE IVP STA (22:58)
[2023-01-05] MEDS: MAGNESIUM SULFATE 2 GRAM 2 GM/50 ML BAG IV ONE (22:59)
[2023-01-05] MEDS: DEXAMETHASONE 10 MG/ML VIAL IVP STA (22:59)
[2023-01-06 01:30] VITALS: BP 110/76
== END 2023-01-06 01:22 | disposition home or self-care (01) ==
LOC: EDUNIT# → ED 20:45
DX: E86.0 Dehydration (principal); E83.42 Hypomagnesemia; F17.200 Nicotine dependence, unspecified, uncomplicated; I11.0 Hypertensive heart disease with heart failure; I50.9 Heart failure, unspecified; E11.9 Type 2 diabetes mellitus without complications; Z79.82 Long term (current) use of aspirin; Z79.899 Other long term (current) drug therapy
CPT/HCPCS: 36415; 80053; 83690; 83735; 85025; 96365; 96366; 96375; 99283

== ENCOUNTER 2023-07-06 16:32 | Outpatient (CLI) | payer MEDICARE ==
[2023-07-06] MEDS ORDERED: iohexoL-300 100 ML VIAL ONE (16:36)
[2023-07-06] MEDS ORDERED: DIATRIZOATE MEGLU/DIATRIZO SOD 30 ML BOTTLE PO ONE ×2 (16:36→19:43)
--- NOTE | 2023-07-06 19:00 | CT Report ---
PROCEDURE: Abdomen/Pelvis W INDICATIONS: INCREASING ABD GIRTH CONTRAST: 100mL Omni 300 TECHNIQUE: After the administration of intravenous contrast, a CT scan of the abdomen and pelvis was performed. Images were recorded and evaluated at appropriate window settings. Reformats: coronal and sagittal. F or radiation dose reduction, the following was used: automated exposure control, adjustment of mA and /or kV according to patient size. COMPARISON: 04/09/2022 FINDINGS: Image quality: Excellent. Lung bases and heart: Unremarkable. Liver: No solid mass. Diffuse fatty liver infiltration can be seen. The liver is prominent in size. Gallbladder and biliary tree: Cholecystectomy Spleen: No splenomegaly. Pancreas: No pancreatic ductal dilation. Adrenals: No adrenal nodule. Kidneys and ureters: No hydronephrosis. No renal cystic lesion which requires follow up. No solid mas s. Bowel and peritoneum: No bowel distension. No pathologic free fluid. Lymph nodes: No central or retroperitoneal adenopathy. Vessels: No infrarenal aortic aneurysm. PELVIS Reproductive organs: This patient is status post hysterectomy. No adnexal masses can be seen. Bladder: No abnormal wall thickening, accounting for underdistention. Pelvic lymph nodes: No pelvic adenopathy by size criteria. Bones: No aggressive osseous abnormality. There is a T12 anterior wedge deformity seen, which is unch anged compared to the prior CT, with 50% loss of height anteriorly. Other: There is an infraumbilical abdominal wall hernia seen, which contains nondilated small bowel. IMPRESSION: No imaging explanation is found for the patient's presenting symptoms. Negative for ascites. No masses are detected. There is an infraumbilical abdominal wall hernia seen, which contains nondilated small bowel. Additional findings: Stable T12 anterior wedge deformity Fatty liver infiltration Cholecystectomy 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 Reviewed by: Bk Villarreal MD on 07/06/2023 5:58 PM [place] Approved by: kB Villarreal MD on 07/06/2023 5:58 PM [place] Station ID: [id number]
[2023-07-06] MEDS ORDERED: iohexoL-300 100 ML VIAL IVP ONE (19:42)
== END 2023-07-06 16:33 | disposition home or self-care (01) ==
LOC: DI 16:32
PROVIDERS: ATTEND Internal Medicine
DX: K42.9 Umbilical hernia without obstruction or gangrene (principal); R19.8 Other specified symptoms and signs involving the digestive system and abdomen
CPT/HCPCS: 74177; Q9963; Q9967

== ENCOUNTER 2023-08-27 20:03 | Outpatient (CLI) | payer MEDICARE | END 2023-08-27 23:59 | disposition critical access hospital (66) | LOC: EMS 20:03 | DX: R10.9 Unspecified abdominal pain (principal); R11.2 Nausea with vomiting, unspecified; R19.7 Diarrhea, unspecified | CPT/HCPCS: A0425; A0427 ==

== ENCOUNTER 2023-08-27 20:23 | Emergency (ER) | payer MEDICARE ==
--- NOTE | 2023-08-27 20:36 | ED Physician Documentation ---
History of Present Illness - Stated complaint Stated Complaint: ABD PX - History obtained from History obtained from: Patient - Additonal information Additional information: 68yF with pmh dm, diaphragmatic hernia with chronic pain, 12 episodes of SBO with "countless" abdominal surgeries p/w n/v of feculent material. patient states she measured it and it was about 1700cc. also with 9/10 diffuse abdominal pain, now improved s/p 100 fentanyl IV en route with ems. patient received IV 4mg zofran en route and nausea has resolved. denies back pain, urinary sx fever. last BM watery stool this morning. not passing flatus. 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, Other : Incontinence HEENT: Chronic vision loss, Chronic sinusitis Psych: Depression, Anxiety, Obsessive compulsive disorder, Other Musculoskeletal: Osteoarthritis, Other Derm: Other - Past Surgical History Past Surgical History: Yes General: Cholecystectomy, Appendectomy, Bowel surgery, Other Ortho: Knee replacement /DYE MACHINE OPERATOR: 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, Oophrectomy Cardiovascular: Cardiac catheterization HEENT: Tonsil/Adenoidectomy - Present Medications Home Medications: Ambulatory Orders Medication Instructions Recorded Confirmed Aspirin [Aspirin EC] 650 mg PO 0800,1200,1600,199905/29/13 07/23/23 Metoprolol Tartrate 50 mg PO BID 05/29/13 07/23/23 Fluticasone [Flonase] 2 sprays MATT DAILY PRN 11/26/17 07/23/23 Esomeprazole Magnesium [Nexium] 20 mg PO DAILY 05/03/18 07/23/23 Cetirizine [ZyrTEC] 10 mg PO QPM 09/06/18 07/23/23 predniSONE [Deltasone] 5 mg PO DAILY 09/06/18 07/23/23 buPROPion HCL [Bupropion HCl Sr] 150 mg PO BID 12/21/18 07/23/23 Melatonin 2.5 mg PO QPM 03/02/20 07/23/23 Loperamide [Imodium] 2 mg PO QID PRN cap 04/11/22 07/23/23 Acetaminophen [Tylenol] 650 mg PO BID 12/21/22 07/23/23 Cholecalciferol (Vitamin D3) 50 mcg PO DAILY 12/21/22 07/23/23 [Vitamin D3] guaiFENesin [Mucus Relief ER] 1,200 mg PO BID 12/21/22 07/23/23 Nystatin [Nystop] 1 applic TOP BID each 12/22/22 07/23/23 Dicyclomine [Bentyl] 1 - 2 tab PO DAILY PRN 03/26/23 07/23/23 Potassium Chloride [Micro-K] 20 meq PO PRN PRN 03/26/23 07/23/23 - Allergies Allergies/Adverse Reactions: Allergies Allergy/AdvReac Type Severity Reaction Status Date / Time droperidol [From Inapsine] Allergy Severe EPS Verified 07/16/23 15:41 ibuprofen [From Motrin] Allergy Severe Anaphylaxis Verified 07/16/23 15:41 peanut Allergy Severe Anaphylaxis Verified 07/16/23 15:41 shellfish derived Allergy Severe Anaphylaxis Verified 07/16/23 15:41 Iszmrpp-XGG-HpL Reductase Allergy Severe muscle pain Verified 07/16/23 15:41 Inhibitor [Enpgrtx-Jbx-Wfk Reductase Inhibitor] amoxicillin [Amoxicillin] Allergy Intermediate Hives Verified 07/16/23 15:41 cefazolin Allergy Intermediate Hives Verified 07/16/23 15:41 Cephalosporins Allergy Intermediate Hives Verified 07/16/23 15:41 clindamycin Allergy Intermediate Hives Verified 07/16/23 15:41 cyclobenzaprine Allergy Intermediate Hives/night Verified 07/16/23 15:41 [Cyclobenzaprine] castaneda erythromycin base Allergy Intermediate Hives Verified 07/16/23 15:41 [Erythromycin Base] potassium clavulanate * Allergy Intermediate Hives Verified 07/16/23 15:41 [From Augmentin] ketorolac tromethamine * Allergy Anaphylaxis Verified 07/16/23 15:41 [From Toradol] adhesive tape AdvReac Severe BLISTERS Verified 07/16/23 15:41 duloxetine AdvReac Severe Suicidal Verified 07/16/23 15:41 etanercept [From Enbrel] AdvReac Severe Nausea/vomm Verified 07/16/23 15:41 iting/cramp s methotrexate AdvReac Severe N/V/Cramps Verified 07/16/23 15:41 NSAIDS (Non-Steroidal AdvReac Severe Anaphylaxis Verified 07/16/23 15:41 Anti-Inflamma prochlorperazine AdvReac Severe EPS Verified 07/16/23 15:41 pseudoephedrine AdvReac Severe Tachycardia Verified 07/16/23 15:41 sumatriptan AdvReac Severe Widened QRS Verified 07/16/23 15:41 doxycycline AdvReac Intermediate Hives Verified 07/16/23 15:41 gabapentin AdvReac Intermediate Gait Verified 07/16/23 15:41 disturbance latex AdvReac Intermediate Sensitivity Verified 07/16/23 15:41 prochlorperazine edisylate * AdvReac Unknown Unknown Verified 07/16/23 15:41 [From Compazine] morphine AdvReac Unknown Verified 07/16/23 15:41 prochlorperazine maleate * AdvReac Unknown Verified 07/16/23 15:41 [From Compazine] promethazine [From Phenergan] AdvReac Hallucinati Verified 07/16/23 15:41 ons - Social History Does the pt smoke?: Yes Smoking Status: Current every day smoker Does the pt drink ETOH?: Yes Does the pt have substance abuse?: No - Immunizations Immunizations are current?: Yes - POLST Patient has POLST: Yes POLST Status: DNR PD ED PE NORMAL - Vitals Vital signs reviewed: Yes - General General: Alert and oriented X 3, No acute distress, Well developed/nourished, Other (large body habitus) - HEENT HEENT: Atraumatic, PERRL, EOMI - Neck Neck: Supple, no meningeal sign - Cardiac Cardiac: RRR - Respiratory Respiratory: No respiratory distress, Clear bilaterally - Abdomen Abdomen: Other (diffusely ttp) Results - Vitals Vitals: Vital Signs - 24 hr 08/27/23 08/27/23 08/27/23 20:23 21:00 21:01 Temperature 36.6 C 36.6 C Heart Rate 81 81 81 Respiratory 19 18 19 Rate Blood Pressure 132/79 H 132/79 H 132/79 H O2 Saturation 100 94 100 08/27/23 23:12 Temperature Heart Rate 79 Respiratory 17 Rate Blood Pressure 142/78 H O2 Saturation 92 Oxygen O2 Source [Without Activity] Room air O2 Source Room air - Labs Labs: Laboratory Tests 08/27/23 08/27/23 08/27/23 21:00 21:00 21:00 WBC 7.7 RBC 5.50 H Hgb 16.6 H Hct 52.4 H MCV 95.3 MCH 30.2 MCHC 31.7 L RDW 15.9 H Plt Count 311 MPV 9.1 Neut # (Auto) 6.5 Lymph # (Auto) 0.6 L [place] # (Auto) 0.6 Eos # (Auto) 0.0 Baso # (Auto) 0.1 Absolute Nucleated RBC 0.00 Nucleated RBC % 0.0 Sodium 136 Potassium 3.8 Chloride 97 L Carbon Dioxide 31 Anion Gap 8.0 BUN 15 Creatinine 0.6 Estimated GFR (MDRD) 100 Glucose 168 H Lactic Acid 1.4 Calcium 9.7 Total Bilirubin 0.5 AST 22 ALT 18 Alkaline Phosphatase 106 Total Protein 6.9 Albumin 4.3 Globulin 2.6 Albumin/Globulin Ratio 1.7 Lipase 37 PD Medical Decision Making - ED course ED course: 68yF with hx sbo p/w feculent vomitus and severe abdominal pain, improved s/p IV fentanyl from ems.cbc, abdominal panel, lactic, IVF, CT a/p with po contrast ordered. 9pm - pain returned 9/10 and patient is again nauseous. 1mg iv dilaudid and 4mg additional IV zofran ordered to good effect. patient states she is unable to tolerate ng tube and declined. CT reveals SBO. d/w Dr. Mendoza who states patient is too complicated for our critical access hospital. Patient accepted to [facility] expecting bed tomorrow. Departure - Departure Disposition: 02 Transfer Acute Care Hosp Clinical Impression: SBO (small bowel obstruction) Condition: Serious Forms: PCP List
[2023-08-27] MEDS ORDERED: DIATRIZOATE MEGLU/DIATRIZO SOD 30 ML BOTTLE PO ONE (21:01)
[2023-08-27] MEDS ORDERED: iohexoL-300 100 ML VIAL ONE (21:01)
[2023-08-27 21:09] LABS: BASOPHILS # (AUTO) 0.1 10^3/uL (0.0-0.1); BASOPHILS % (AUTO) 0.8 %; EOSINOPHILS % (AUTO) 0.5 %; HCT - HEMATOCRIT 52.4 % (37.0-47.0); HGB - HEMOGLOBIN 16.6 g/dL (12.0-16.0); LYMPHOCYTES # (AUTO) 0.6 10^3/uL (1.5-3.5); LYMPHOCYTES % (AUTO) 7.5 %; MEAN CORPUSCULAR HEMOGLOBIN 30.2 pg (27.0-31.0); MEAN CORPUSCULAR HGB CONC 31.7 g/dL (32.0-36.0); MEAN CORPUSCULAR VOLUME 95.3 fL (81.0-99.0); MEAN PLATELET VOLUME 9.1 fL (7.9-10.8); MONOCYTES # (AUTO) 0.6 10^3/uL (0.0-1.0); MONOCYTES % (AUTO) 7.1 %; NEUTROPHILS # (AUTO) 6.5 10^3/uL (1.5-6.6); NEUTROPHILS % (AUTO) 83.8 %; PLT - PLATELET COUNT 311 10^3/uL (130-450); RED CELL DISTRIBUTION WIDTH 15.9 % (12.0-15.0); WHITE BLOOD COUNT 7.7 x10^3/uL (4.8-10.8)
[2023-08-27] MEDS: SODIUM CHLORIDE 0.9% 1,000 ML IV STA (21:17)
[2023-08-27 21:18] LABS: ALBUMIN 4.3 g/dL (3.2-5.5); ALBUMIN/GLOBULIN RATIO 1.7 (1.0-2.2); BILIRUBIN,TOTAL 0.5 mg/dL (0.2-1.0); CALCIUM 9.7 mg/dL (8.5-10.3); CREATININE 0.6 mg/dL (0.6-1.3); POTASSIUM 3.8 mmol/L (3.5-4.5); TOTAL PROTEIN 6.9 g/dL (6.4-8.9)
[2023-08-27] MEDS: HYDROmorphone 1 MG/ML CARPUJECT IVP STA ×2 (21:20→23:06)
[2023-08-27] MEDS: ONDANSETRON 4 MG/2 ML VIAL IVP STA (21:29)
[2023-08-27] MEDS: METOCLOPRAMIDE 10 MG/2 ML VIAL IVP STA (23:06)
[2023-08-27] MEDS: iohexoL-300 100 ML VIAL IVP ONE (23:39)
--- NOTE | 2023-08-28 00:10 | CT Report ---
PROCEDURE: Abdomen/Pelvis W INDICATIONS: Abdominal pain, acute, nonlocalized CONTRAST: OMNI 300, 100mls TECHNIQUE: After the administration of intravenous contrast, a CT scan of the abdomen and pelvis was performed. Images were recorded and evaluated at appropriate window settings. Reformats: coronal and sagittal. F or radiation dose reduction, the following was used: automated exposure control, adjustment of mA and /or kV according to patient size. COMPARISON: CT abdomen/pelvis 07/06/2023 FINDINGS: Image quality: Diagnostic. Lower chest: Unremarkable. Liver: No solid mass. Liver is mildly hypoattenuating, suspicious for fatty infiltration. Gallbladder and biliary tree: Surgically absent. No biliary dilation, accounting for post-cholecystec andrzej state. Spleen: No splenomegaly. Pancreas: No pancreatic ductal dilation. Adrenals: No adrenal nodule. Kidneys and ureters: Nonobstructing 3 mm calculus at the interpolar region of the left kidney. No hyd ronephrosis. No renal cystic lesion which requires follow up. No solid mass. Stomach, bowel and peritoneum: Surgical anastomosis is seen in the central upper abdomen. There is a short segment of bowel wall thickening proximal to the anastomosis with upstream mildly dilated fluid -filled loops of small bowel. Small bowel loops distal to the anastomosis are decompressed. Lymph nodes: No central or retroperitoneal adenopathy. Vessels: No infrarenal aortic aneurysm. PELVIS Reproductive organs: Unremarkable. Bladder: No abnormal wall thickening, accounting for underdistention. Pelvic lymph nodes: No pelvic adenopathy by size criteria. Bones: No aggressive osseous abnormality. Multilevel degenerative changes are seen in the spine. Mild posterior convex curvature. Unchanged chronic T12 compression fracture. Other: A wide neck ventral hernia seen in the midline upper abdomen containing wall of large bowel wi thout signs of large bowel obstruction. Additional small fat-containing upper abdominal ventral herni as are present. An infraumbilical hernia contains a small amount of fluid. IMPRESSION: 1.Dilated fluid-filled loops of small bowel in the central abdomen are suspicious for small bowel obs truction. Transition point is seen within the anterior central upper abdomen where there is a segment of narrowed small bowel with bowel wall thickening just proximal to a surgical anastomosis. 2.Nonobstructing 3 mm calculus at the interpolar region of the left kidney. 3.Mild diffuse hepatic steatosis. 4.Chronic T12 compression fracture appears unchanged. Reviewed by: Yair Jackson MD on 08/28/2023 12:08 AM PDT Approved by: Yair Jackson MD on 08/28/2023 12:08 AM PDT Station ID: [id number]
[2023-08-28] MEDS: HYDROmorphone 1 MG/ML CARPUJECT IVP STA (02:48)
[2023-08-28] MEDS: METOCLOPRAMIDE 10 MG/2 ML VIAL IVP STA (04:59)
[2023-08-28] MEDS: HYDROmorphone 1 MG/ML CARPUJECT IVP SCH (05:41)
[2023-08-28 06:38] VITALS: O2SAT 99
[2023-08-28] MEDS: ONDANSETRON 4 MG/2 ML VIAL IVP STA (07:35)
[2023-08-28] MEDS: HYDROmorphone 1 MG/ML CARPUJECT IVP PRN (07:42)
[2023-08-28 07:56] VITALS: BP 123/66
== END 2023-08-28 07:57 | disposition short-term general hospital (02) ==
LOC: EDUNIT# → ED 20:23
DX: K56.609 Unspecified intestinal obstruction, unspecified as to partial versus complete obstruction (principal); I11.0 Hypertensive heart disease with heart failure; I50.9 Heart failure, unspecified; E11.9 Type 2 diabetes mellitus without complications; Z86.010 Personal history of colon polyps; Z79.899 Other long term (current) drug therapy; F17.200 Nicotine dependence, unspecified, uncomplicated
CPT/HCPCS: 36415; 74177; 80053; 83605; 83690; 85025; 96374; 96375; 96376; 99285; J1170; J2765; Q9963; Q9967

== ENCOUNTER 2023-08-31 15:09 | Outpatient (CLI) | payer MEDICARE | END 2023-08-31 23:59 | disposition critical access hospital (66) | LOC: EMS 15:09 | DX: R10.813 Right lower quadrant abdominal tenderness (principal); R14.0 Abdominal distension (gaseous) | CPT/HCPCS: A0425; A0429 ==

== ENCOUNTER 2023-08-31 15:32 | Emergency (ER) | payer MEDICARE ==
--- NOTE | 2023-08-31 16:09 | ED Physician Documentation ---
PD HPI ABD PAIN - Stated complaint Stated Complaint: ABD PX - Chief complaint Chief Complaint: Abd Pain - History obtained from History obtained from: Patient - Additional information Additional information: Patient is a 68-year-old female with a history of multiple prior abdominal surgeries and recurrent small bowel obstructions presenting for evaluation of worsening lower abdominal pain. Patient was seen in our emergency department on August 26 and found to have an SBO. Consultation with general surgery at that time indicates that she was too complex for critical access hospital so she was transferred to prof [facility]. She reports on Thursday she was given a Gastrografin challenge and there was movement seen into the colon at that time.She also had a bowel movement and decrease in her symptoms. Yesterday she reports they needed the bed and so discharged her. She was unable to find a ride so they told her she would need to find a place to stay and she rented a hotel room and will continue. This morning she reports getting into a large jetted tub that was in the hotel room but felt too weak to get out so needed EMS assistance to get out of the tub. She did not want to go to the hospital and a friend was able to pick her up. She started having worsening lower abdominal pain [place] but patient did not want to go back to the hospital.Very soon as she got back to the house she decided to call EMS. No nausea or vomiting. Had a small bowel movement yesterday. Review of Systems Constitutional: denies: Fever Cardiac: denies: Chest pain / pressure Respiratory: denies: Dyspnea GI: reports: Abdominal Pain, Nausea. 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, Other : Incontinence HEENT: Chronic vision loss, Chronic sinusitis Psych: Depression, Anxiety, Obsessive compulsive disorder, Other Musculoskeletal: Osteoarthritis, Other Derm: Other - Past Surgical History Past Surgical History: Yes General: Cholecystectomy, Appendectomy, Bowel surgery, Other Ortho: Knee replacement /ASSISTANT PORTFOLIO MANAGER: 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, Oophrectomy Cardiovascular: Cardiac catheterization HEENT: Tonsil/Adenoidectomy - Present Medications Home Medications: Ambulatory Orders Medication Instructions Recorded Confirmed Aspirin [Aspirin EC] 650 mg PO 0800,1200,1600,2000 05/29/13 08/28/23 Metoprolol Tartrate 50 mg PO BID 05/29/13 08/28/23 Fluticasone [Flonase] 2 sprays MATT DAILY PRN 11/26/17 08/28/23 Esomeprazole Magnesium [Nexium] 20 mg PO DAILY 05/03/18 08/28/23 Cetirizine [ZyrTEC] 10 mg PO QPM 09/06/18 08/28/23 predniSONE [Deltasone] 5 mg PO DAILY 09/06/18 08/28/23 buPROPion HCL [Bupropion HCl Sr] 150 mg PO BID 12/21/18 08/28/23 Melatonin 2.5 mg PO QPM 03/02/20 08/28/23 Loperamide [Imodium] 2 mg PO QID PRN cap 04/11/22 08/28/23 Acetaminophen [Tylenol] 650 mg PO BID 12/21/22 08/28/23 Cholecalciferol (Vitamin D3) 50 mcg PO DAILY 12/21/22 08/28/23 [Vitamin D3] guaiFENesin [Mucus Relief ER] 1,200 mg PO BID 12/21/22 08/28/23 Nystatin [Nystop] 1 applic TOP BID each 12/22/22 08/28/23 Dicyclomine [Bentyl] 1 - 2 tab PO DAILY PRN 03/26/23 08/28/23 Potassium Chloride [Micro-K] 20 meq PO PRN PRN 03/26/23 08/28/23 - Allergies Allergies/Adverse Reactions: Allergies Allergy/AdvReac Type Severity Reaction Status Date / Time droperidol [From Inapsine] Allergy Severe EPS Verified 08/31/23 15:41 ibuprofen [From Motrin] Allergy Severe Anaphylaxis Verified 08/31/23 15:41 peanut Allergy Severe Anaphylaxis Verified 08/31/23 15:41 shellfish derived Allergy Severe Anaphylaxis Verified 08/31/23 15:41 Ihlymos-TDB-AbU Reductase Allergy Severe muscle pain Verified 08/31/23 15:41 Inhibitor [Zdokjhq-Ahl-Viu Reductase Inhibitor] amoxicillin [Amoxicillin] Allergy Intermediate Hives Verified 08/31/23 15:41 cefazolin Allergy Intermediate Hives Verified 08/31/23 15:41 Cephalosporins Allergy Intermediate Hives Verified 08/31/23 15:41 clindamycin Allergy Intermediate Hives Verified 08/31/23 15:41 cyclobenzaprine Allergy Intermediate Hives/night Verified 08/31/23 15:41 [Cyclobenzaprine] castaneda erythromycin base Allergy Intermediate Hives Verified 08/31/23 15:41 [Erythromycin Base] potassium clavulanate * Allergy Intermediate Hives Verified 08/31/23 15:41 [From Augmentin] ketorolac tromethamine * Allergy Anaphylaxis Verified 08/31/23 15:41 [From Toradol] adhesive tape AdvReac Severe BLISTERS Verified 08/31/23 15:41 duloxetine AdvReac Severe Suicidal Verified 08/31/23 15:41 etanercept [From Enbrel] AdvReac Severe Nausea/vomm Verified 08/31/23 18:45 iting/cramp s methotrexate AdvReac Severe N/V/Cramps Verified 08/31/23 18:45 NSAIDS (Non-Steroidal AdvReac Severe Anaphylaxis Verified 08/31/23 18:45 Anti-Inflamma prochlorperazine AdvReac Severe EPS Verified 08/31/23 18:45 pseudoephedrine AdvReac Severe Tachycardia Verified 08/31/23 18:45 sumatriptan AdvReac Severe Widened QRS Verified 08/31/23 18:45 doxycycline AdvReac Intermediate Hives Verified 08/31/23 18:45 gabapentin AdvReac Intermediate Gait Verified 08/31/23 18:45 disturbance latex AdvReac Intermediate Sensitivity Verified 08/31/23 18:45 prochlorperazine edisylate * AdvReac Unknown Unknown Verified 08/31/23 18:45 [From Compazine] morphine AdvReac Unknown Verified 08/31/23 18:45 prochlorperazine maleate * AdvReac Unknown Verified 08/31/23 18:45 [From Compazine] promethazine [From Phenergan] AdvReac Hallucinati Verified 08/31/23 18:45 ons - Social History Does the pt smoke?: Yes Smoking Status: Current every day smoker Does the pt drink ETOH?: Yes Does the pt have substance abuse?: No - Immunizations Immunizations are current?: Yes - POLST Patient has POLST: Yes POLST Status: DNR PD ED PE NORMAL - General General: Alert and oriented X 3, No acute distress, Well developed/nourished (Morbidly obese) - HEENT HEENT: Atraumatic, Moist mucous membranes, Pharynx benign - Neck Neck: Supple, no meningeal sign - Cardiac Cardiac: RRR, Strong equal pulses - Respiratory Respiratory: No respiratory distress, Clear bilaterally - Abdomen Abdomen: Other (Hypoactive bowel sounds, ventral wall hernia with tenderness but is reducible, lower abdominal tenderness) - Derm Derm: Warm and dry - Neuro Neuro: Normal speech Results - Vitals Vitals: Vital Signs - 24 hr 08/31/23 08/31/23 08/31/23 15:38 17:41 19:00 Temperature 36.6 C Heart Rate 94 98 Respiratory 20 19 25 H Rate Blood Pressure 173/95 H 137/88 H 137/80 H O2 Saturation 97 96 90 L 08/31/23 20:00 Temperature Heart Rate Respiratory 22 Rate Blood Pressure O2 Saturation Oxygen O2 Source [Without Activity] Room air O2 Source Room air - Labs Labs: Laboratory Tests 08/31/23 08/31/23 08/31/23 16:48 16:48 16:48 WBC 6.8 RBC 4.53 Hgb 13.5 Hct 41.8 MCV 92.3 MCH 29.8 MCHC 32.3 RDW 15.0 Plt Count 276 MPV 8.8 Neut # (Auto) 4.9 Lymph # (Auto) 1.1 L [place] # (Auto) 0.7 Eos # (Auto) 0.1 Baso # (Auto) 0.0 Absolute Nucleated RBC 0.00 Nucleated RBC % 0.0 Sodium 135 Potassium 2.9 L Chloride 94 L Carbon Dioxide 35 H Anion Gap 6.0 BUN 10 Creatinine 0.5 L Estimated GFR (MDRD) 123 Glucose 120 H Calcium 9.2 Magnesium 1.0 L* Total Bilirubin 0.4 AST 19 ALT 22 Alkaline Phosphatase 84 Total Protein 5.8 L Albumin 3.6 Globulin 2.2 Albumin/Globulin Ratio 1.6 Lipase 113 H PD Medical Decision Making - ED course Complexity details: reviewed results, re-evaluated patient, d/w patient ED course: Pt with abdominal pain, history of multiple abdominal surgeries and SBO. Pt just discharged from [facility] yesterday for SBO. CBC, chemistries reviewed - K 2.9 Mg 1.0. IV replacement ordered. Pain treated with IV dilaudid x 2. CT with PO and IV contrast ordered to eval for SBO. Pt signed out to Dr. Rios at shift change pending results of CT scan. Departure - Departure Disposition: 01 Home, Self Care Clinical Impression: Hypokalemia, Hypomagnesemia Abdominal pain Qualifiers: Abdominal location: unspecified location Qualified Code(s): R10.9 - Unspecified abdominal pain Condition: Stable Instructions: ED Abdominal Pain Female Non-Specific Abdominal Pain Comments: Your workup here is negative. You do not have a bowel obstruction or any other acute, serious condition. You just had extensive evaluation at [place] with the specialists and there is nothing further to be done at this time. You will need to talk to your doctor about how to manage your chronic abdominal pain. For now, we will have you continue your home medication as usual. Forms: PCP List
[2023-08-31] MEDS ORDERED: DIATRIZOATE MEGLU/DIATRIZO SOD 30 ML BOTTLE PO ONE (16:11)
[2023-08-31] MEDS ORDERED: iohexoL-300 100 ML VIAL ONE (16:11)
[2023-08-31] MEDS: ONDANSETRON 4 MG/2 ML VIAL IVP STA ×2 (16:40→19:41)
[2023-08-31] MEDS: HYDROmorphone 0.5 MG/0.5 ML SYRINGE IVP STA ×2 (16:42→18:54)
[2023-08-31] MEDS: SODIUM CHLORIDE 0.9% 1,000 ML IV STA (16:44)
[2023-08-31 16:51] LABS: BASOPHILS % (AUTO) 0.4 %; EOSINOPHILS # (AUTO) 0.1 10^3/uL (0.0-0.7); EOSINOPHILS % (AUTO) 1.2 %; HCT - HEMATOCRIT 41.8 % (37.0-47.0); HGB - HEMOGLOBIN 13.5 g/dL (12.0-16.0); LYMPHOCYTES # (AUTO) 1.1 10^3/uL (1.5-3.5); LYMPHOCYTES % (AUTO) 16.4 %; MEAN CORPUSCULAR HEMOGLOBIN 29.8 pg (27.0-31.0); MEAN CORPUSCULAR HGB CONC 32.3 g/dL (32.0-36.0); MEAN CORPUSCULAR VOLUME 92.3 fL (81.0-99.0); MEAN PLATELET VOLUME 8.8 fL (7.9-10.8); MONOCYTES # (AUTO) 0.7 10^3/uL (0.0-1.0); MONOCYTES % (AUTO) 10.1 %; NEUTROPHILS # (AUTO) 4.9 10^3/uL (1.5-6.6); NEUTROPHILS % (AUTO) 71.3 %; PLT - PLATELET COUNT 276 10^3/uL (130-450); RED BLOOD COUNT 4.53 10^6/uL (4.20-5.40); WHITE BLOOD COUNT 6.8 x10^3/uL (4.8-10.8)
[2023-08-31 17:09] LABS: ALBUMIN 3.6 g/dL (3.2-5.5); ALBUMIN/GLOBULIN RATIO 1.6 (1.0-2.2); BILIRUBIN,TOTAL 0.4 mg/dL (0.2-1.0); CALCIUM 9.2 mg/dL (8.5-10.3); CREATININE 0.5 mg/dL (0.6-1.3); POTASSIUM 2.9 mmol/L (3.5-4.5); TOTAL PROTEIN 5.8 g/dL (6.4-8.9)
[2023-08-31] MEDS: POTASSIUM CHLOR 10 MEQ/100 ML 10 MEQ/100 ML BAG IV SCH (18:04)
[2023-08-31] MEDS: MAGNESIUM SULFATE 2 GRAM 2 GM/50 ML BAG IV ONE (18:13)
[2023-08-31] MEDS: iohexoL-300 100 ML VIAL IVP ONE (18:47)
[2023-08-31 19:09] VITALS: BP 137/80; O2SAT 90
--- NOTE | 2023-08-31 20:16 | CT Report ---
PROCEDURE: Abdomen/Pelvis W INDICATIONS: SBO/worsening pain CONTRAST: OMNI 300 100ML TECHNIQUE: After the administration of intravenous contrast, a CT scan of the abdomen and pelvis was performed. Images were recorded and evaluated at appropriate window settings. Reformats: coronal and sagittal. F or radiation dose reduction, the following was used: automated exposure control, adjustment of mA and /or kV according to patient size. COMPARISON: CT abdomen/pelvis 08/27/2023. FINDINGS: Image quality: Diagnostic. Lower chest: Unremarkable. Liver: No solid mass.Hypoattenuating liver is compatible with diffuse steatosis. Coarse calcification s are likely the sequela of prior granulomas disease. Gallbladder and biliary tree: Surgically absent. No biliary dilation, accounting for post-cholecystec andrzej state. Spleen: No splenomegaly. Pancreas: No pancreatic ductal dilation. Adrenals: No adrenal nodule. Kidneys and ureters: Nonobstructing 3 mm calculus at the interpolar region of the left kidney. No hyd ronephrosis. No renal cystic lesion which requires follow up. No solid mass. Stomach, bowel and peritoneum: Multiple diverticula are seen in the colon without acute inflammatory changes. Oral contrast material is seen throughout the small bowel without high-grade obstruction see n. Mild focal fat stranding is seen adjacent to a loop of small bowel in the right lower quadrant sai t is new when compared to the recent prior CT. Lymph nodes: No central or retroperitoneal adenopathy. Vessels: No infrarenal aortic aneurysm. PELVIS Reproductive organs: Unremarkable. Bladder: No abnormal wall thickening, accounting for underdistention. Pelvic lymph nodes: No pelvic adenopathy by size criteria. Bones: No aggressive osseous abnormality. Entrance chronic T12 compression fracture. Multilevel degen erative changes are seen in the spine. No significant scoliotic curvature as position on the current exam. Other: Upper abdominal ventral hernia contains the anterior wall of a short segment of transverse col on without signs of large bowel obstruction. Fluid-containing periumbilical hernia is noted. IMPRESSION: 1.Single contrast material is seen throughout the small bowel without high-grade obstruction. 2.Mild fat stranding is seen in the right lower quadrant adjacent to a few loops of small bowel, whic h is nonspecific but may be related to bowel inflammation. 3.Surgical anastomosis in the central abdomen appears to be patent. Small ventral hernias are seen, o ne of which contains the anterior wall of the transverse colon without signs of large bowel obstructi on. 4.Nonobstructing 3 mm calculus at the interpolar region of the left kidney. 5.Mild diffuse hepatic steatosis. 6.Unchanged chronic T12 compression fracture. Reviewed by: Yair Jackson MD on 08/31/2023 8:15 PM PDT Approved by: Yair Jackson MD on 08/31/2023 8:15 PM PDT Station ID: [id number]
--- NOTE | 2023-09-01 06:40 | ED Physician Documentation ---
ED Addendum - Addendum Addendum: 09/01/23 06:38 The patient was signed out to me at change of shift by Dr. Ham, pending CT results after presenting to the emergency department with abdominal pain. The patient has an extensive history of abdominal pain, small bowel obstructions, and chronic hypokalemia and hypomagnesemia. She was just an inpatient at [facility] of an discharge within the last few days but came back out here to check into the emergency department. The patient had a negative CT with regard to ac renan findings and specifically, no small bowel obstruction. She was hypokalemic and was receiving IV potassium for this. Her magnesium was at baseline, which is low. I discussed with the patient that she is stable for discharge. Final impression: 1. Abdominal pain 2. Hypomagnesemia 3. Hypokalemia. Disposition: Home in stable and improved condition. 09/01/23 06:39
== END 2023-08-31 22:00 | disposition home or self-care (01) ==
LOC: EDUNIT# → ED 15:32
DX: R10.30 Lower abdominal pain, unspecified (principal); E83.42 Hypomagnesemia; E87.6 Hypokalemia; I11.0 Hypertensive heart disease with heart failure; I50.9 Heart failure, unspecified; E11.9 Type 2 diabetes mellitus without complications; F17.200 Nicotine dependence, unspecified, uncomplicated; Z79.82 Long term (current) use of aspirin; Z79.899 Other long term (current) drug therapy
CPT/HCPCS: 36415; 74177; 80053; 83690; 83735; 85025; 96365; 96366; 96368; 96375; 96376; 99285; J1170; Q9963; Q9967

== ENCOUNTER 2023-09-01 16:00 | Outpatient (CLI) | payer MEDICARE | END 2023-09-01 16:15 | disposition home or self-care (01) | LOC: LAB.N 16:00 | PROVIDERS: ATTEND Physician Assistant | DX: R30.0 Dysuria (principal) | CPT/HCPCS: 87086 ==

== ENCOUNTER 2023-09-07 07:00 | Outpatient (CLI) | payer MEDICARE | END 2023-09-07 23:59 | disposition home or self-care (01) | LOC: LAB.S 07:00 | PROVIDERS: ATTEND Internal Medicine | DX: R30.0 Dysuria (principal) | CPT/HCPCS: 87086 ==

== ENCOUNTER 2023-09-14 12:45 | Outpatient (CLI) | payer MEDICARE | END 2023-09-14 12:46 | disposition home or self-care (01) | LOC: DI 12:45 | PROVIDERS: ATTEND Internal Medicine | DX: R06.09 Other forms of dyspnea (principal) | CPT/HCPCS: 93307 ==

== ENCOUNTER 2023-09-18 18:22 | Outpatient (CLI) | payer MEDICARE | END 2023-09-18 18:23 | disposition critical access hospital (66) | LOC: EMS 18:22 | DX: R11.2 Nausea with vomiting, unspecified (principal); R19.7 Diarrhea, unspecified; R10.9 Unspecified abdominal pain | CPT/HCPCS: A0425; A0427 ==

== ENCOUNTER 2023-09-18 18:43 | Emergency (ER) | payer MEDICARE ==
--- NOTE | 2023-09-18 19:24 | ED Physician Documentation ---
PD HPI ABD PAIN - Stated complaint Stated Complaint: ABD PX/NAUSEA - Chief complaint Chief Complaint: Abd Pain - Additional information Additional information: 68 year old female well known to [facility] presents to ER via ambulance for abdominal pain. Pt has hx of chronic IBS, electrolyte abnormalities, CHF, depression, anxiety and a multitude of other chronic morbidities. Pt says that she continues to have large liquid bowel movements at home and had another episode of IBS. She said that her pain and nausea has actually improved but she is still having difficulty controlling her nausea because she has the Zofran that does not dissolve at home. Her pain feels no different to her chronic abdominal pain that she has been dealing with and is not interested in any further work up or imaging. PD PAST MEDICAL HISTORY - Past Medical History Cardiovascular: Congestive heart failure, Hypertension Respiratory: Other Neuro: None, Headaches Endocrine/Autoimmune: Type 2 diabetes, Other GI: GERD, Colon polyps, Chronic diarrhea, Other OUTSOLE CASER: Ovarian cysts, Other : Incontinence HEENT: Chronic vision loss, Chronic sinusitis Psych: Depression, Anxiety, Obsessive compulsive disorder, Other Musculoskeletal: Osteoarthritis, Other Derm: Other - Past Surgical History Past Surgical History: Yes General: Cholecystectomy, Appendectomy, Bowel surgery, Other Ortho: Knee replacement /OUTSOLE CASER: 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, Oophrectomy Cardiovascular: Cardiac catheterization HEENT: Tonsil/Adenoidectomy - Present Medications Home Medications: Ambulatory Orders Medication Instructions Recorded Confirmed Aspirin [Aspirin EC] 650 mg PO 0800,1200,1600,199905/29/13 08/28/23 Metoprolol Tartrate 50 mg PO BID 05/29/13 08/28/23 Fluticasone [Flonase] 2 sprays MATT DAILY PRN 11/26/17 08/28/23 Esomeprazole Magnesium [Nexium] 20 mg PO DAILY 05/03/18 08/28/23 Cetirizine [ZyrTEC] 10 mg PO QPM 09/06/18 08/28/23 predniSONE [Deltasone] 5 mg PO DAILY 09/06/18 08/28/23 buPROPion HCL [Bupropion HCl Sr] 150 mg PO BID 12/21/18 08/28/23 Melatonin 2.5 mg PO QPM 03/02/20 08/28/23 Loperamide [Imodium] 2 mg PO QID PRN cap 04/11/22 08/28/23 Acetaminophen [Tylenol] 650 mg PO BID 12/21/22 08/28/23 Cholecalciferol (Vitamin D3) 50 mcg PO DAILY 12/21/22 08/28/23 [Vitamin D3] guaiFENesin [Mucus Relief ER] 1,200 mg PO BID 12/21/22 08/28/23 Nystatin [Nystop] 1 applic TOP BID each 12/22/22 08/28/23 Dicyclomine [Bentyl] 1 - 2 tab PO DAILY PRN 03/26/23 08/28/23 Potassium Chloride [Micro-K] 20 meq PO PRN PRN 03/26/23 08/28/23 Ondansetron Odt [Zofran Odt] 4 mg TL Q6H PRN #10 tablet 09/18/23 - Allergies Allergies/Adverse Reactions: Allergies Allergy/AdvReac Type Severity Reaction Status Date / Time droperidol [From Inapsine] Allergy Severe EPS Verified 09/18/23 18:51 ibuprofen [From Motrin] Allergy Severe Anaphylaxis Verified 09/18/23 18:51 peanut Allergy Severe Anaphylaxis Verified 09/18/23 18:51 shellfish derived Allergy Severe Anaphylaxis Verified 09/18/23 18:51 Mqrjsor-ZTE-EmB Reductase Allergy Severe muscle pain Verified 09/18/23 18:51 Inhibitor [Tedgwsr-Swb-Jru Reductase Inhibitor] amoxicillin [Amoxicillin] Allergy Intermediate Hives Verified 09/18/23 18:51 cefazolin Allergy Intermediate Hives Verified 09/18/23 18:51 Cephalosporins Allergy Intermediate Hives Verified 09/18/23 18:51 clindamycin Allergy Intermediate Hives Verified 09/18/23 18:51 cyclobenzaprine Allergy Intermediate Hives/night Verified 09/18/23 18:51 [Cyclobenzaprine] castaneda erythromycin base Allergy Intermediate Hives Verified 09/18/23 18:51 [Erythromycin Base] potassium clavulanate * Allergy Intermediate Hives Verified 09/18/23 18:51 [From Augmentin] ketorolac tromethamine * Allergy Anaphylaxis Verified 09/18/23 18:51 [From Toradol] adhesive tape AdvReac Severe BLISTERS Verified 09/18/23 18:51 duloxetine AdvReac Severe Suicidal Verified 09/18/23 18:51 etanercept [From Enbrel] AdvReac Severe Nausea/vomm Verified 09/18/23 18:51 iting/cramp s methotrexate AdvReac Severe N/V/Cramps Verified 09/18/23 18:51 NSAIDS (Non-Steroidal AdvReac Severe Anaphylaxis Verified 09/18/23 18:51 Anti-Inflamma prochlorperazine AdvReac Severe EPS Verified 09/18/23 18:51 pseudoephedrine AdvReac Severe Tachycardia Verified 09/18/23 18:51 sumatriptan AdvReac Severe Widened QRS Verified 09/18/23 18:51 doxycycline AdvReac Intermediate Hives Verified 09/18/23 18:51 gabapentin AdvReac Intermediate Gait Verified 09/18/23 18:51 disturbance latex AdvReac Intermediate Sensitivity Verified 09/18/23 18:51 prochlorperazine edisylate * AdvReac Unknown Unknown Verified 09/18/23 18:51 [From Compazine] morphine AdvReac Unknown Verified 09/18/23 18:51 prochlorperazine maleate * AdvReac Unknown Verified 09/18/23 18:51 [From Compazine] promethazine [From Phenergan] AdvReac Hallucinati Verified 09/18/23 18:51 ons - Social History Does the pt smoke?: Yes Smoking Status: Current every day smoker Does the pt drink ETOH?: Yes Does the pt have substance abuse?: No - Immunizations Immunizations are current?: Yes - POLST Patient has POLST: Yes POLST Status: DNR PD ED PE NORMAL - Vitals Vital signs reviewed: Yes - General General: Alert and oriented X 3, No acute distress, Other (morbidly obesity) - Cardiac Cardiac: RRR - Respiratory Respiratory: No respiratory distress, Clear bilaterally - Abdomen Abdomen: Normal bowel sounds, Soft, Non distended, No organomegaly, Other (generalized abdominal tenderness) - Back Back: No CVA TTP - Derm Derm: Normal color, Warm and dry, No rash Results - Vitals Vitals: Vital Signs - 24 hr 09/18/23 09/18/23 09/18/23 18:47 18:51 20:51 Temperature 36.3 C L Heart Rate 73 80 78 Respiratory 18 17 18 Rate Blood Pressure 162/112 H 163/100 H 134/76 H O2 Saturation 99 94 98 09/18/23 21:31 Temperature Heart Rate 60 Respiratory 18 Rate Blood Pressure 136/75 H O2 Saturation 98 Oxygen O2 Source [Without Activity] Room air O2 Source Room air - Labs Labs: Laboratory Tests 09/18/23 09/18/23 19:40 19:40 WBC 8.2 RBC 5.29 Hgb 15.6 Hct 49.2 H MCV 93.0 MCH 29.5 MCHC 31.7 L RDW 15.4 H Plt Count 422 MPV 8.8 Neut # (Auto) 6.6 Lymph # (Auto) 0.8 L Travis # (Auto) 0.6 Eos # (Auto) 0.1 Baso # (Auto) 0.1 Absolute Nucleated RBC 0.00 Nucleated RBC % 0.0 Sodium 136 Potassium 3.9 Chloride 101 Carbon Dioxide 25 Anion Gap 10.0 BUN 15 Creatinine 0.6 Estimated GFR (MDRD) 100 Glucose 154 H Calcium 9.4 Magnesium 1.3 L Total Bilirubin 0.5 AST 12 ALT 11 Alkaline Phosphatase 94 Total Protein 6.9 Albumin 4.0 Globulin 2.9 Albumin/Globulin Ratio 1.4 Lipase 44 PD Medical Decision Making - ED course ED course: Belkis feels almost complete relief from her symptoms, nausea resolved with IV Zofran and pain resolved with Dilaudid. Pt reports she is ready to discharge and would not like to replace her mg as she follows up outpatient with [facility] for IV electrolyte replacement. She was given a take home pack of ODT Zofran and a script for this as well. All questions have been answered. Departure - Departure Disposition: 01 Home, Self Care Clinical Impression: Hypomagnesemia, Abdominal pain Instructions: Abdominal Pain Prescriptions: Ondansetron Odt [Zofran Odt] 4 mg TL Q6H PRN #10 tablet PRN Reason: Nausea / Vomiting Comments: Thank you for trusting us with your care. We have given you some Zofran and Dilaudid for your pain we offered you magnesium for your low magnesium but it sounds like you are already established with the [facility]. Follow-up with them after your next scheduled appointment Forms: PCP List Discharge Date/Time: 09/18/23 21:41
[2023-09-18 19:50] LABS: BASOPHILS # (AUTO) 0.1 10^3/uL (0.0-0.1); BASOPHILS % (AUTO) 0.6 %; EOSINOPHILS # (AUTO) 0.1 10^3/uL (0.0-0.7); EOSINOPHILS % (AUTO) 1.1 %; HCT - HEMATOCRIT 49.2 % (37.0-47.0); HGB - HEMOGLOBIN 15.6 g/dL (12.0-16.0); LYMPHOCYTES # (AUTO) 0.8 10^3/uL (1.5-3.5); LYMPHOCYTES % (AUTO) 9.5 %; MEAN CORPUSCULAR HEMOGLOBIN 29.5 pg (27.0-31.0); MEAN CORPUSCULAR HGB CONC 31.7 g/dL (32.0-36.0); MEAN PLATELET VOLUME 8.8 fL (7.9-10.8); MONOCYTES # (AUTO) 0.6 10^3/uL (0.0-1.0); MONOCYTES % (AUTO) 7.2 %; NEUTROPHILS # (AUTO) 6.6 10^3/uL (1.5-6.6); NEUTROPHILS % (AUTO) 81.2 %; PLT - PLATELET COUNT 422 10^3/uL (130-450); RED BLOOD COUNT 5.29 10^6/uL (4.20-5.40); RED CELL DISTRIBUTION WIDTH 15.4 % (12.0-15.0); WHITE BLOOD COUNT 8.2 x10^3/uL (4.8-10.8)
[2023-09-18] MEDS: ONDANSETRON 4 MG/2 ML VIAL IVP STA (19:53)
[2023-09-18] MEDS: HYDROmorphone 1 MG/ML CARPUJECT IVP STA (19:53)
[2023-09-18 20:09] LABS: ALBUMIN/GLOBULIN RATIO 1.4 (1.0-2.2); BILIRUBIN,TOTAL 0.5 mg/dL (0.2-1.0); CALCIUM 9.4 mg/dL (8.5-10.3); CREATININE 0.6 mg/dL (0.6-1.3); MAGNESIUM 1.3 mg/dL (1.7-2.3); POTASSIUM 3.9 mmol/L (3.5-4.5); TOTAL PROTEIN 6.9 g/dL (6.4-8.9)
[2023-09-18] MEDS: MAGNESIUM OXIDE 400 MG TABLET PO STA (20:35)
[2023-09-18 21:11] VITALS: O2SAT 98
[2023-09-18] MEDS: ONDANSETRON ODT 4 MG Prepack 2 TL PRN (21:35)
[2023-09-18 21:38] VITALS: BP 136/75
== END 2023-09-18 21:41 | disposition home or self-care (01) ==
LOC: EDUNIT# → ED 18:43
DX: E83.42 Hypomagnesemia (principal); R10.84 Generalized abdominal pain; I11.0 Hypertensive heart disease with heart failure; I50.9 Heart failure, unspecified; E11.9 Type 2 diabetes mellitus without complications; Z66 Do not resuscitate
CPT/HCPCS: 36415; 80053; 83690; 83735; 85025; 96374; 99284

== ENCOUNTER 2023-10-08 11:11 | Outpatient (CLI) | payer MEDICARE | END 2023-10-08 23:59 | disposition home or self-care (01) | LOC: PC 11:11 | PROVIDERS: ATTEND Nurse Practitioner Gerontology | DX: Z51.5 Encounter for palliative care (principal); K43.9 Ventral hernia without obstruction or gangrene; R11.0 Nausea; M17.9 Osteoarthritis of knee, unspecified; F32.A Depression, unspecified; F17.210 Nicotine dependence, cigarettes, uncomplicated | CPT/HCPCS: 99205; G2212; 99417 ==

== ENCOUNTER 2023-10-09 08:00 | Outpatient (CLI) | payer MEDICARE | END 2023-10-09 23:59 | disposition home or self-care (01) | LOC: PC 08:00 | PROVIDERS: ATTEND Nurse Practitioner Gerontology | DX: Z51.5 Encounter for palliative care (principal); F17.210 Nicotine dependence, cigarettes, uncomplicated; K43.9 Ventral hernia without obstruction or gangrene; K58.1 Irritable bowel syndrome with constipation; M25.572 Pain in left ankle and joints of left foot; M25.571 Pain in right ankle and joints of right foot; M25.542 Pain in joints of left hand; M25.541 Pain in joints of right hand; M25.59 Pain in other specified joint; E83.42 Hypomagnesemia; F32.A Depression, unspecified; Z73.9 Problem related to life management difficulty, unspecified | CPT/HCPCS: 99350 ==

== ENCOUNTER → 2023-10-22 | Outpatient (CLI) | payer MEDICARE | LOC: PC 08:00 | PROVIDERS: ATTEND Nurse Practitioner Gerontology | DX: Z51.5 Encounter for palliative care (principal); R10.33 Periumbilical pain; R11.0 Nausea; M25.561 Pain in right knee; M25.562 Pain in left knee; F17.210 Nicotine dependence, cigarettes, uncomplicated | CPT/HCPCS: 99350 ==

== ENCOUNTER 2023-11-05 11:00 | Outpatient (CLI) | payer MEDICARE | END 2023-11-05 23:59 | disposition home or self-care (01) | LOC: PC 11:00 | PROVIDERS: ATTEND Nurse Practitioner Gerontology | DX: Z51.5 Encounter for palliative care (principal); K21.9 Gastro-esophageal reflux disease without esophagitis; K56.50 Intestinal adhesions [bands], unspecified as to partial versus complete obstruction; G89.29 Other chronic pain; M02.30 Reiter's disease, unspecified site; R11.2 Nausea with vomiting, unspecified; K58.9 Irritable bowel syndrome, unspecified; Z71.89 Other specified counseling; Z79.899 Other long term (current) drug therapy | CPT/HCPCS: 99215; G2212; 99417 ==

== ENCOUNTER 2023-11-10 22:51 | Outpatient (CLI) | payer MEDICARE | END 2023-11-10 22:52 | disposition critical access hospital (66) | LOC: EMS 22:51 | DX: R10.84 Generalized abdominal pain (principal); R10.817 Generalized abdominal tenderness; R11.2 Nausea with vomiting, unspecified | CPT/HCPCS: A0425; A0427 ==

== ENCOUNTER 2023-11-10 23:10 | Emergency (ER) | payer MEDICARE ==
--- NOTE | 2023-11-10 23:50 | ED Physician Documentation ---
PD HPI ABD PAIN - Stated complaint Stated Complaint: N/V/D - Chief complaint Chief Complaint: Abd Pain - History obtained from History obtained from: Patient - Additional information Additional information: HPI from patient. WILBERT. Patient c/o rapid onset abdominal pain, periumbilical and LLQ while at home at rest. Onset was 1-2 hours [employer] and is associated with nausea and vomiting. Has had similar symptoms in the past, often associated with SBO. She was evaluated in this ED 2 months ago for similar symptoms and transferred to [facility] for SBO. Patient says the SBO was managed medically (she says she was told she is a poor surgical candidate), with resolution subsequent to administration of PO gastrograffin. Patient says she is under palliative care Review of Systems Constitutional: denies: Fever, Chills, Sweats Cardiac: reports: Reviewed and negative Respiratory: reports: Reviewed and negative GI: reports: Abdominal Pain, Nausea, Vomiting, Diarrhea (chronic). denies: Constipation : denies: Dysuria, Frequency PD PAST MEDICAL HISTORY - Past Medical History Cardiovascular: Congestive heart failure, Hypertension Respiratory: Other Neuro: None, Headaches Endocrine/Autoimmune: Type 2 diabetes, Other GI: GERD, Colon polyps, Chronic diarrhea, Other MINE WIRER: Ovarian cysts, Other : Incontinence HEENT: Chronic vision loss, Chronic sinusitis Psych: Depression, Anxiety, Obsessive compulsive disorder, Other Musculoskeletal: Osteoarthritis, Other Derm: Other - Past Surgical History Past Surgical History: Yes General: Cholecystectomy, Appendectomy, Bowel surgery, Other Ortho: Knee replacement /MINE WIRER: 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, Oophrectomy Cardiovascular: Cardiac catheterization HEENT: Tonsil/Adenoidectomy - Present Medications Home Medications: Ambulatory Orders Medication Instructions Recorded Confirmed Aspirin [Aspirin EC] 650 mg PO 0800,1200,1600,199905/29/13 11/11/23 Metoprolol Tartrate 50 mg PO BID 05/29/13 11/11/23 Fluticasone [Flonase] 2 sprays MATT DAILY PRN 11/26/17 11/11/23 Esomeprazole Magnesium [Nexium] 20 mg PO DAILY 05/03/18 11/11/23 Cetirizine [ZyrTEC] 10 mg PO QPM 09/06/18 11/11/23 predniSONE [Deltasone] 5 mg PO DAILY 09/06/18 11/11/23 buPROPion HCL [Bupropion HCl Sr] 150 mg PO BID 12/21/18 11/11/23 Melatonin 2.5 mg PO QPM 03/02/20 11/11/23 Loperamide [Imodium] 2 mg PO QID PRN cap 04/11/22 11/11/23 guaiFENesin [Mucus Relief ER] 1,200 mg PO BID 12/21/22 11/11/23 Nystatin [Nystop] 1 applic TOP BID each 12/22/22 11/11/23 Dicyclomine [Bentyl] 1 - 2 tab PO DAILY PRN 03/26/23 11/11/23 Potassium Chloride [Micro-K] 20 meq PO PRN PRN 03/26/23 11/11/23 Ondansetron Odt [Zofran Odt] 4 mg TL Q6H PRN #10 tablet 09/18/23 11/11/23 Acetaminophen [Tylenol] 1,000 mg PO BID 11/11/23 11/11/23 Cholecalciferol [Vitamin D3] 5,000 unit PO DAILY 11/11/23 11/11/23 Ondansetron Odt [Zofran Odt] 4 mg TL Q6H PRN #14 tablet 11/11/23 - Allergies Allergies/Adverse Reactions: Allergies Allergy/AdvReac Type Severity Reaction Status Date / Time droperidol [From Inapsine] Allergy Severe EPS Verified 09/18/23 18:51 ibuprofen [From Motrin] Allergy Severe Anaphylaxis Verified 09/18/23 18:51 peanut Allergy Severe Anaphylaxis Verified 09/18/23 18:51 shellfish derived Allergy Severe Anaphylaxis Verified 09/18/23 18:51 Jydzaip-XIX-InL Reductase Allergy Severe muscle pain Verified 09/18/23 18:51 Inhibitor [Emtzvbw-Lps-Uhq Reductase Inhibitor] amoxicillin [Amoxicillin] Allergy Intermediate Hives Verified 09/18/23 18:51 cefazolin Allergy Intermediate Hives Verified 09/18/23 18:51 Cephalosporins Allergy Intermediate Hives Verified 09/18/23 18:51 clindamycin Allergy Intermediate Hives Verified 09/18/23 18:51 cyclobenzaprine Allergy Intermediate Hives/night Verified 09/18/23 18:51 [Cyclobenzaprine] castaneda erythromycin base Allergy Intermediate Hives Verified 09/18/23 18:51 [Erythromycin Base] potassium clavulanate * Allergy Intermediate Hives Verified 09/18/23 18:51 [From Augmentin] ketorolac tromethamine * Allergy Anaphylaxis Verified 09/18/23 18:51 [From Toradol] adhesive tape AdvReac Severe BLISTERS Verified 09/18/23 18:51 duloxetine AdvReac Severe Suicidal Verified 09/18/23 18:51 etanercept [From Enbrel] AdvReac Severe Nausea/vomm Verified 09/18/23 18:51 iting/cramp s methotrexate AdvReac Severe N/V/Cramps Verified 09/18/23 18:51 NSAIDS (Non-Steroidal AdvReac Severe Anaphylaxis Verified 09/18/23 18:51 Anti-Inflamma prochlorperazine AdvReac Severe EPS Verified 09/18/23 18:51 pseudoephedrine AdvReac Severe Tachycardia Verified 09/18/23 18:51 sumatriptan AdvReac Severe Widened QRS Verified 09/18/23 18:51 doxycycline AdvReac Intermediate Hives Verified 09/18/23 18:51 gabapentin AdvReac Intermediate Gait Verified 09/18/23 18:51 disturbance latex AdvReac Intermediate Sensitivity Verified 09/18/23 18:51 prochlorperazine edisylate * AdvReac Unknown Unknown Verified 09/18/23 18:51 [From Compazine] morphine AdvReac Unknown Verified 09/18/23 18:51 prochlorperazine maleate * AdvReac Unknown Verified 09/18/23 18:51 [From Compazine] promethazine [From Phenergan] AdvReac Hallucinati Verified 09/18/23 18:51 ons - Social History Does the pt smoke?: Yes Smoking Status: Current every day smoker Does the pt drink ETOH?: Yes Does the pt have substance abuse?: No - Immunizations Immunizations are current?: Yes - POLST Patient has POLST: Yes POLST Status: DNR PD ED PE NORMAL - Vitals Vital signs reviewed: Yes - General General: Alert and oriented X 3, Well developed/nourished, Other (appears to be in waxing and waning painful discomfort during H+P) - Neck Neck: Supple, no meningeal sign - Cardiac Cardiac: RRR, No murmur - Respiratory Respiratory: No respiratory distress, Clear bilaterally - Abdomen Abdomen: Soft, Non distended, Other (decreased bowel sounds) Results - Vitals Vitals: Vital Signs - 24 hr 11/11/23 11/11/23 11/11/23 00:58 01:00 02:00 Heart Rate 75 79 Respiratory 16 16 Rate Blood Pressure 113/64 130/85 H O2 Saturation 80 L 97 93 If not protocol 2 : Oxygen Flow, liters/minute 11/11/23 11/11/23 11/11/23 04:00 05:30 07:00 Heart Rate 71 77 81 Respiratory 16 16 18 Rate Blood Pressure 135/68 H 120/70 94/60 O2 Saturation 97 97 98 If not protocol 2 2 2 : Oxygen Flow, liters/minute 11/11/23 08:29 Heart Rate 74 Respiratory 15 Rate Blood Pressure 114/74 O2 Saturation 95 If not protocol : Oxygen Flow, liters/minute Oxygen O2 Source [] Room air O2 Source Nasal cannula Oxygen Flow Rate 2 - Labs Labs: Laboratory Tests 11/10/23 11/10/23 11/10/23 23:49 23:49 23:49 WBC 13.6 H RBC 5.42 H Hgb 15.8 Hct 49.3 H MCV 91.0 MCH 29.2 MCHC 32.0 RDW 15.5 H Plt Count 388 MPV 9.2 Neut # (Auto) 10.8 H Lymph # (Auto) 1.5 Hart # (Auto) 1.0 Eos # (Auto) 0.1 Baso # (Auto) 0.1 Absolute Nucleated RBC 0.00 Nucleated RBC % 0.0 Sodium 139 Potassium 3.1 L Chloride 94 L Carbon Dioxide 32 Anion Gap 13.0 BUN 20 Creatinine 0.9 Estimated GFR (MDRD) 62 L Glucose 179 H Lactic Acid Calcium 9.9 Magnesium 0.8 L* Total Bilirubin 0.4 AST 12 ALT 11 Alkaline Phosphatase 108 Total Protein 6.9 Albumin 4.5 Globulin 2.4 Albumin/Globulin Ratio 1.9 Lipase 45 11/11/23 04:55 WBC RBC Hgb Hct MCV MCH MCHC RDW Plt Count MPV Neut # (Auto) Lymph # (Auto) Hart # (Auto) Eos # (Auto) Baso # (Auto) Absolute Nucleated RBC Nucleated RBC % Sodium Potassium Chloride Carbon Dioxide Anion Gap BUN Creatinine Estimated GFR (MDRD) Glucose Lactic Acid 1.4 Calcium Magnesium Total Bilirubin AST ALT Alkaline Phosphatase Total Protein Albumin Globulin Albumin/Globulin Ratio Lipase - Rads (name of study) CT A/P with PO and IV contrast Relevant Findings:: Prelim report reviewed, See rad report PD Medical Decision Making - ED course Complexity details: reviewed results, re-evaluated patient, considered differential, d/w patient ED course: Mild leukocytosis on CBC (wbc 13.6), mild hypokalemia (3.1) and hyperglycemia (179). Marked hypomagnesemia (0.8) which actually approximates patient's baseline (she receives regularly scheduled outpatient IV magnesium for this). CT A/P with IV and PO contrast undertaken, although she only tolerates small amount PO contrast (vomits shortly after drinking this). CT demonstrates SBO with periumbilical hernia; there is immediately adjacent "upstream" obstruction from the hernia and decompression "downstream". Thus, incarcerated hernia is suspected cause of SBO and there is some edema of the hernia's bowel wall and small amount of adjacent fluid, raising concern for strangulation of the herniated segment. I immediately reevaluated patient once this CT is resulted. She is in NAD on reevaluation; she has received 1 mg dilaudid followed by 0.5 mg dilaudid and second dose 0.5 mg dilaudid for total of 2mg dilaudid IV. She is also given 2 grams magnesium sulfate IV, 4mg IV zofran x 3 doses, 10meq KCL IV. I was able to palpate the hernia; it is small, minimally tender, and is not firm. I was able to quite easily and completely reduce the hernia without any patient discomfort (both visibly as well as per patient). I discussed option of admission for observation regarding symptoms and to monitor (clinically) for improvement in signs/symptoms of SBO; patient says she would not want to be admitted to [facility] and would prefer transfer to or [place] if inpatient treatment is necessary. Overall, however, she requests more observation in ED, as she would prefer d/c if symptoms do not recur with more ED observation. This is a reasonable approach, given that the reduction of the hernia should lead to sym ptom resolution if this was the cause of her SBO. She is anxious as a result of discussion of the CT results (she says she has been told she is such a poor surgical candidate that recurrence of SBO that does not resolve with non- surgical management would likely result in her ), and she asks for something for anxiety. She is given 1mg IV lorazepam. On multiple subsequent reevaluations, she is resting comfortably each time I reevaluate her. She did not have recurrence of nausea, vomiting, nor abdominal pain and thus did not require any further medication(s). On one of the subsequent reevaluations, I again was able to palpate the small periumbilical hernia and rapidly and easily reduced it. The hernia was not palpable on final reevaluation prior to d/c. At the end of my shift, she is comfortable with d/c home. Return precautions reviewed. I advised her to attempt hernia reduction for symptoms recurrence. Departure - Departure Disposition: Home, Self Care Clinical Impression: Small bowel obstruction Condition: Good Instructions: Obstruction Sm Bowel Prescriptions: Ondansetron Odt [Zofran Odt] 4 mg TL Q6H PRN #14 tablet PRN Reason: Nausea / Vomiting Comments: The CT scan of your abdomen and pelvis demonstrated recurrence of your small bowel obstruction. These images suggest that the cause of the bowel obstruction might be due to one of your hernias. Fortunately, I was able to completely and surprisingly easily reduce the involved hernia. When I reevaluated you a second time, I again was able to easily and completely reduce the hernia in question. Thus, if the hernia is indeed the cause of your bowel obstruction, reduction of the hernia should lead to resolution of your symptoms. Certainly, if your symptoms recur, you can always consider coming back to the emergency department for reevaluation. Discharge Date/Time: 11/11/23 08:31
[2023-11-10 23:52] LABS: BASOPHILS # (AUTO) 0.1 10^3/uL (0.0-0.1); BASOPHILS % (AUTO) 0.6 %; EOSINOPHILS # (AUTO) 0.1 10^3/uL (0.0-0.7); EOSINOPHILS % (AUTO) 0.7 %; HCT - HEMATOCRIT 49.3 % (37.0-47.0); HGB - HEMOGLOBIN 15.8 g/dL (12.0-16.0); LYMPHOCYTES # (AUTO) 1.5 10^3/uL (1.5-3.5); LYMPHOCYTES % (AUTO) 11.1 %; MEAN CORPUSCULAR HEMOGLOBIN 29.2 pg (27.0-31.0); MEAN PLATELET VOLUME 9.2 fL (7.9-10.8); MONOCYTES % (AUTO) 7.4 %; NEUTROPHILS # (AUTO) 10.8 10^3/uL (1.5-6.6); NEUTROPHILS % (AUTO) 79.5 %; PLT - PLATELET COUNT 388 10^3/uL (130-450); RED BLOOD COUNT 5.42 10^6/uL (4.20-5.40); RED CELL DISTRIBUTION WIDTH 15.5 % (12.0-15.0); WHITE BLOOD COUNT 13.6 x10^3/uL (4.8-10.8)
[2023-11-11] MEDS: SODIUM CHLORIDE 0.9% 1,000 ML IV STA (00:04)
[2023-11-11] MEDS: ONDANSETRON 4 MG/2 ML VIAL IVP STA ×3 (00:04→02:56)
[2023-11-11 00:06] LABS: ALBUMIN 4.5 g/dL (3.2-5.5); ALBUMIN/GLOBULIN RATIO 1.9 (1.0-2.2); BILIRUBIN,TOTAL 0.4 mg/dL (0.2-1.0); CALCIUM 9.9 mg/dL (8.5-10.3); CREATININE 0.9 mg/dL (0.6-1.3); POTASSIUM 3.1 mmol/L (3.5-4.5); TOTAL PROTEIN 6.9 g/dL (6.4-8.9)
[2023-11-11] MEDS: HYDROmorphone 1 MG/ML CARPUJECT IVP STA ×2 (00:06→02:08)
[2023-11-11] MEDS: MAGNESIUM SULFATE 2 GRAM 2 GM/50 ML BAG IV STA (00:37)
[2023-11-11] MEDS ORDERED: iohexoL-300 100 ML VIAL ONE (01:32)
[2023-11-11] MEDS: POTASSIUM CHLOR 10 MEQ/100 ML 10 MEQ/100 ML BAG IV STA (01:36)
[2023-11-11] MEDS ORDERED: DIATRIZOATE MEGLU/DIATRIZO SOD 30 ML BOTTLE PO ONE (01:44)
[2023-11-11] MEDS ORDERED: HYDROmorphone 1 MG/ML CARPUJECT IVP PRN (01:59)
[2023-11-11] MEDS: iohexoL-300 100 ML VIAL IVP ONE (03:47)
[2023-11-11] MEDS: LORazepam 2 MG/ML VIAL IVP STA (05:18)
[2023-11-11 08:33] VITALS: BP 114/74; O2SAT 95
--- NOTE | 2023-11-11 08:41 | CT Report ---
PROCEDURE: Abdomen/Pelvis W INDICATIONS: abd. pain CONTRAST: Omni 300, 100mls TECHNIQUE: After the administration of intravenous contrast, a CT scan of the abdomen and pelvis was performed. Images were recorded and evaluated at appropriate window settings. Reformats: coronal and sagittal. F or radiation dose reduction, the following was used: automated exposure control, adjustment of mA and /or kV according to patient size. COMPARISON: None. FINDINGS: Image quality: Diagnostic. Lower chest: Mild bibasilar atelectasis. Liver: Hepatic steatosis. Gallbladder: Surgically absent. Biliary tree: No intrahepatic or extrahepatic dilation, accounting for a post-cholecystectomy state. Spleen: No splenomegaly. Pancreas: No pancreatic ductal dilation. Mild pancreatic atrophy. No peripancreatic inflammation. Adrenals: No adrenal nodule. Kidneys and ureters: No hydronephrosis. Tiny punctate nonobstructing stones. No renal cystic lesion w hich requires follow up. No solid mass. Mild renal cortical scarring bilaterally. Stomach, bowel and peritoneum: There is a infraumbilical hernia containing fluid and short segment of small bowel. There is associated circumferential wall thickening of the herniated bowel and mild daryl rounding stranding. There is also obstruction proximally from the hernia with mild wall thickening of a segment of small bowel closest to the hernia site. Fluid-filled loops of small bowel proximally wi th differential air-fluid levels. No pneumatosis seen. Small bowel is decompressed distally. Unremark able appearance of the colon. Colonic diverticulosis without acute diverticulitis. Dilated small bryanna l measures up to 4.5 cm in diameter. There are also postsurgical changes of small bowel from previous partial resection. No gastric dilation. No pathologic free fluid. Lymph nodes: No central or retroperitoneal adenopathy. Vessels: No infrarenal aortic aneurysm. Patent portal vein. Moderate atherosclerosis. PELVIS Reproductive organs: Unremarkable. Bladder: No abnormal wall thickening, accounting for underdistention. Pelvic lymph nodes: No pelvic adenopathy by size criteria. Bones: No aggressive osseous abnormality. Chronic anterior compression fracture of T12. Mild grade 1 anterolisthesis of L4 on L5. Multilevel thoracolumbar spondylosis. Other: No other significant ventral or inguinal hernia. IMPRESSION: Small to moderate-sized infraumbilical hernia containing segment of small bowel and likely reactive f luid with associated circumferential wall thickening of the herniated segment concerning for strangul ation. There is associated small bowel obstruction proximally/upstream with minimal wall thickening a nd distended fluid-filled small bowel measuring up to 4.5 cm in diameter. Other chronic findings as above. No significant discrepancy with initial interpretation by overnight radiologist. Reviewed by: Gage Marino MD on 11/11/2023 8:40 AM PDT Approved by: Gage Marino MD on 11/11/2023 8:40 AM PDT Station ID: [id number]
== END 2023-11-11 08:31 | disposition home or self-care (01) ==
LOC: EDUNIT# → ED 23:10
DX: K56.609 Unspecified intestinal obstruction, unspecified as to partial versus complete obstruction (principal); I11.0 Hypertensive heart disease with heart failure; I50.9 Heart failure, unspecified; E11.9 Type 2 diabetes mellitus without complications; Z86.010 Personal history of colon polyps; Z79.82 Long term (current) use of aspirin; Z79.899 Other long term (current) drug therapy; F17.200 Nicotine dependence, unspecified, uncomplicated
CPT/HCPCS: 36415; 74177; 80053; 83605; 83690; 83735; 85025; 96365; 96366; 96368; 96375; 96376; 99284; 99285; J1170; J2060; Q9963; Q9967

== ENCOUNTER 2023-11-12 08:00 | Outpatient (CLI) | payer MEDICARE | END 2023-11-12 23:59 | disposition home or self-care (01) | LOC: PC 08:00 | PROVIDERS: ATTEND Nurse Practitioner Gerontology | DX: Z51.5 Encounter for palliative care (principal); G89.4 Chronic pain syndrome; R25.1 Tremor, unspecified; E83.42 Hypomagnesemia; E87.6 Hypokalemia; K43.9 Ventral hernia without obstruction or gangrene; Z71.89 Other specified counseling | CPT/HCPCS: 99215; G2212; 99417 ==

== ENCOUNTER 2023-12-03 08:00 | Outpatient (CLI) | payer MEDICARE | END 2023-12-03 23:59 | disposition home or self-care (01) | LOC: PC 08:00 | PROVIDERS: ATTEND Nurse Practitioner Gerontology | DX: Z51.5 Encounter for palliative care (principal); K46.0 Unspecified abdominal hernia with obstruction, without gangrene; R10.33 Periumbilical pain; F32.A Depression, unspecified; I50.9 Heart failure, unspecified; E11.9 Type 2 diabetes mellitus without complications; K21.9 Gastro-esophageal reflux disease without esophagitis; E66.9 Obesity, unspecified | CPT/HCPCS: 99215; G2212; 99417 ==

== ENCOUNTER 2023-12-03 14:33 | Emergency (ER) | payer MEDICARE ==
--- NOTE | 2023-12-03 15:10 | ED Physician Documentation ---
PD HPI ABD PAIN - Stated complaint Stated Complaint: ABD PX - Chief complaint Chief Complaint: Abd Pain - History obtained from History obtained from: Patient - History of Present Illness Timing - onset: Today Timing - details: Abrupt onset (she was in [facility] getting weekly infusion adn had onset of abd cramping and fullness. Sent to ER.), Still present Quality: Cramping, Aching, Fullness/distended Location: All over / everywhere Associated symptoms: Nausea. 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: Ovarian cysts, Other : Incontinence HEENT: Chronic vision loss, Chronic sinusitis Psych: Depression, Anxiety, Obsessive compulsive disorder, Other Musculoskeletal: Osteoarthritis, Other Derm: Other - Past Surgical History Past Surgical History: Yes General: Cholecystectomy, Appendectomy, Bowel surgery, Other Ortho: Knee replacement /RETAIL PERFORMANCE SPECIALIST: 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, Oophrectomy Cardiovascular: Cardiac catheterization HEENT: Tonsil/Adenoidectomy - Present Medications Home Medications: Ambulatory Orders Medication Instructions Recorded Confirmed Aspirin [Aspirin EC] 650 mg PO 0800,1200,1600,2000 05/29/13 12/03/23 Metoprolol Tartrate 50 mg PO BID 05/29/13 12/03/23 Fluticasone [Flonase] 2 sprays MATT DAILY PRN 11/26/17 12/03/23 Esomeprazole Magnesium [Nexium] 20 mg PO DAILY 05/03/18 12/03/23 Cetirizine [ZyrTEC] 10 mg PO QPM 09/06/18 12/03/23 predniSONE [Deltasone] 5 mg PO DAILY 09/06/18 12/03/23 buPROPion HCL [Bupropion HCl Sr] 150 mg PO BID 12/21/18 12/03/23 Melatonin 2.5 mg PO QPM 03/02/20 12/03/23 Loperamide [Imodium] 2 mg PO QID PRN cap 04/11/22 12/03/23 guaiFENesin [Mucus Relief ER] 1,200 mg PO BID 12/21/22 12/03/23 Nystatin [Nystop] 1 applic TOP BID each 12/22/22 12/03/23 Dicyclomine [Bentyl] 1 - 2 tab PO DAILY PRN 03/26/23 12/03/23 Potassium Chloride [Micro-K] 20 meq PO PRN PRN 03/26/23 12/03/23 Ondansetron Odt [Zofran Odt] 4 mg TL Q6H PRN #10 tablet 09/18/23 12/03/23 Acetaminophen [Tylenol] 1,000 mg PO BID 11/11/23 12/03/23 Cholecalciferol [Vitamin D3] 5,000 unit PO DAILY 11/11/23 12/03/23 Ondansetron Odt [Zofran Odt] 4 mg TL Q6H PRN #14 tablet 11/11/23 12/03/23 - Allergies Allergies/Adverse Reactions: Allergies Allergy/AdvReac Type Severity Reaction Status Date / Time droperidol [From Inapsine] Allergy Severe EPS Verified 12/03/23 14:47 ibuprofen [From Motrin] Allergy Severe Anaphylaxis Verified 12/03/23 14:47 peanut Allergy Severe Anaphylaxis Verified 12/03/23 14:47 shellfish derived Allergy Severe Anaphylaxis Verified 12/03/23 14:47 Xxjektc-XXL-GuD Reductase Allergy Severe muscle pain Verified 12/03/23 14:47 Inhibitor [Jhczylx-Mjr-Arm Reductase Inhibitor] amoxicillin [Amoxicillin] Allergy Intermediate Hives Verified 12/03/23 14:47 cefazolin Allergy Intermediate Hives Verified 12/03/23 14:47 Cephalosporins Allergy Intermediate Hives Verified 12/03/23 14:47 clindamycin Allergy Intermediate Hives Verified 12/03/23 14:47 cyclobenzaprine Allergy Intermediate Hives/night Verified 12/03/23 14:47 [Cyclobenzaprine] castaneda erythromycin base Allergy Intermediate Hives Verified 12/03/23 14:47 [Erythromycin Base] potassium clavulanate * Allergy Intermediate Hives Verified 12/03/23 14:47 [From Augmentin] ketorolac tromethamine * Allergy Anaphylaxis Verified 12/03/23 14:47 [From Toradol] adhesive tape AdvReac Severe BLISTERS Verified 12/03/23 14:47 duloxetine AdvReac Severe Suicidal Verified 12/03/23 14:47 etanercept [From Enbrel] AdvReac Severe Nausea/vomm Verified 12/03/23 14:47 iting/cramp s methotrexate AdvReac Severe N/V/Cramps Verified 12/03/23 14:47 NSAIDS (Non-Steroidal AdvReac Severe Anaphylaxis Verified 12/03/23 14:47 Anti-Inflamma prochlorperazine AdvReac Severe EPS Verified 12/03/23 14:47 pseudoephedrine AdvReac Severe Tachycardia Verified 12/03/23 14:47 sumatriptan AdvReac Severe Widened QRS Verified 12/03/23 14:47 doxycycline AdvReac Intermediate Hives Verified 12/03/23 14:47 gabapentin AdvReac Intermediate Gait Verified 12/03/23 14:47 disturbance latex AdvReac Intermediate Sensitivity Verified 12/03/23 14:47 prochlorperazine edisylate * AdvReac Unknown Unknown Verified 12/03/23 14:47 [From Compazine] morphine AdvReac Unknown Verified 12/03/23 14:47 prochlorperazine maleate * AdvReac Unknown Verified 12/03/23 14:47 [From Compazine] promethazine [From Phenergan] AdvReac Hallucinati Verified 12/03/23 14:47 ons - Social History Does the pt smoke?: Yes Smoking Status: Current every day smoker Does the pt drink ETOH?: Yes Does the pt have substance abuse?: No - Immunizations Immunizations are current?: Yes - POLST Patient has POLST: Yes POLST Status: DNR PD ED PE NORMAL - Vitals Vital signs reviewed: Yes - General General: Alert and oriented X 3, Well developed/nourished - Cardiac Cardiac: RRR, No murmur - Respiratory Respiratory: Clear bilaterally - Abdomen Abdomen: Soft, Other (markedly distended). No: Normal bowel sounds (increased) - Back Back: No CVA TTP - Derm Derm: Normal color, Warm and dry Results - Vitals Vitals: Vital Signs - 24 hr 12/03/23 12/03/23 12/03/23 14:43 16:47 18:00 Temperature 35.9 C L Heart Rate 77 71 61 Respiratory 20 20 18 Rate Blood Pressure 143/88 H 101/69 115/50 L O2 Saturation 97 97 98 12/03/23 19:13 Temperature Heart Rate 68 Respiratory 18 Rate Blood Pressure 131/73 H O2 Saturation 96 Oxygen O2 Source [Without Activity] Room air O2 Source Room air - Labs Labs: Laboratory Tests 12/03/23 15:46 Lactic Acid 1.4 - Rads (name of study) abd/pelvic CT Relevant Findings:: Discussed with rads (incarcerated umbilical hernia with related SBO. ), EMP independent interpretation of test PD Medical Decision Making - ED course Complexity details: reviewed results (CT showing apparent incarcerated hernia periumbilical with related SBO. ), considered differential (abd bloating and distension, tight pain/cramping. Likely c/w SBO, which she has had before. Tender in ventral abd but I can't tell if hernia incarcerate vs intermal cause. Given IV pain meds and will get CT. ), d/w patient ED course: Patient with less paina nd tenderness after IV fluids and meds. She did not want NG tube initially and did have large emesis after CT scan, which reduced pressure in abd. Palpation now with less pain, I could better distinguish the area of the hernia (she has large BMI and prior surgical scars that hinder the palpation), and with gentle pressure, it was gradually decompressed and then popped palpably back into the abd cavilty. She felt suddenly much better. Watched in ER still and soon after had a large BM and felt better still. This gave credance that the hernia was reduced and the SBO relieved. She felt comfortable going home. Departure - Departure Disposition: 01 Home, Self Care Clinical Impression: Incarcerated umbilical hernia, SBO (small bowel obstruction) Condition: Stable Record reviewed to determine appropriate education?: Yes Instructions: Hernia Follow-Up: Giulia Lutz MD [Primary Care Provider] - Comments: You have had the hernia in that area incarcerated twice leading to obstruction or kinking of the bowel. I would suggest talking with your primary care and certainly the upcoming GI appointment about the potential for surgical repair of the hernia. I realize you have a lot of conditions and a lot of scar tissue and such down deep and an open surgery would not be a good thing for internal problems. Hernia repair done in the traditional way from the outside does not enter the peritoneum and might be able to be done for you. I would trust the judgment more of a general surgeon etc. and deciding that. The reasoning being that the size of the hernia hole has demonstrated that it is such that it is easy for things to get trapped out and whether that is preventable or not. For the time being, continue with usual medications and treatment and diet. Mild stool softener would be appropriate to keep pressure down in the abdomen cavity. Return if needed. Forms: PCP List Discharge Date/Time: 12/03/23 19:22
[2023-12-03] MEDS: SODIUM CHLORIDE 0.9% 1,000 ML IV STA (15:50)
[2023-12-03] MEDS: HYDROmorphone 1 MG/ML CARPUJECT IVP STA (15:50)
[2023-12-03] MEDS: MAGNESIUM SULFATE 2 GRAM 2 GM/50 ML BAG IV ONE (15:50)
[2023-12-03] MEDS: ONDANSETRON 4 MG/2 ML VIAL IVP STA ×2 (15:51→18:57)
--- NOTE | 2023-12-03 17:31 | CT Report ---
PROCEDURE: Abdomen/Pelvis WO INDICATIONS: abd distended and pain, c/w prior SBOs TECHNIQUE: A CT scan of the abdomen and pelvis was performed without the use of intravenous contrast. Images we re recorded and evaluated at appropriate window settings. Reformats: coronal and sagittal. For radiat ion dose reduction, the following was used: automated exposure control, adjustment of mA and/or kV ac cording to patient size. COMPARISON: CT of the abdomen and pelvis dated 11/11/2023. FINDINGS: Image quality: Diagnostic. Lower chest: Trace atelectasis is present at the lung bases. Liver: No contour-deforming mass. Gallbladder: Surgically absent. Biliary tree: No intrahepatic or extrahepatic dilation, accounting for age. Spleen: No splenomegaly. Pancreas: No pancreatic ductal dilation. Adrenals: No adrenal nodule. Kidneys and ureters: No hydronephrosis. No contour-deforming mass. Nonobstructing 3 mm calculus is pr esent within the left kidney. Stomach, bowel and peritoneum: The stomach is distended with fluid. The duodenum demonstrates normal course and caliber. The proximal jejunum demonstrates normal course and caliber. There is marked dila tation of the midportion of the small bowel with perienteric fat stranding present. A loop of small b owel is herniated within a paraumbilical hernia. The distal small bowel is decompressed. The colon is decompressed. No pneumatosis. Lymph nodes: No central or retroperitoneal adenopathy. Vessels: No infrarenal aortic aneurysm. Scattered atheromatous calcifications are present throughout the aorta and the iliac vessels. Reproductive organs: The uterus is not visualized and is presumably surgically absent. Bladder: Bladder wall thickness is normal, accounting for underdistention. No calcified bladder stone s. Pelvic lymph nodes: No adenopathy by size criteria. Bones: No aggressive osseous abnormality. Impression deformity at T12 is redemonstrated. Other: No significant ventral or inguinal hernia. IMPRESSION: 1. Small bowel obstruction secondary to incarcerated periumbilical hernia as above. Emergent surgical consultation recommended. 2. Markedly distended fluid-filled stomach. NG tube decompression recommended. This finding was discussed with Dr. Richmond at 5:23 PM on 12/03/2023. Reviewed by: Isis Diego MD on 12/03/2023 5:30 PM PDT Approved by: Isis Diego MD on 12/03/2023 5:30 PM PDT Station ID: [id number]
[2023-12-03] MEDS: HYDROmorphone 0.5 MG/0.5 ML SYRINGE IVP STA (18:22)
[2023-12-03 19:20] VITALS: BP 131/73; O2SAT 96
== END 2023-12-03 19:22 | disposition home or self-care (01) ==
LOC: ED 14:33
DX: K42.0 Umbilical hernia with obstruction, without gangrene (principal); K56.609 Unspecified intestinal obstruction, unspecified as to partial versus complete obstruction; F17.200 Nicotine dependence, unspecified, uncomplicated; Z66 Do not resuscitate
CPT/HCPCS: 36415; 83605; 96365; 96366; 96375; 96376; 99285

== ENCOUNTER 2023-12-24 08:00 | Outpatient (CLI) | payer MEDICARE | END 2023-12-24 23:59 | disposition home or self-care (01) | LOC: PC 08:00 | PROVIDERS: ATTEND Nurse Practitioner Gerontology | DX: Z51.5 Encounter for palliative care (principal); M79.2 Neuralgia and neuritis, unspecified; F32.A Depression, unspecified; F17.200 Nicotine dependence, unspecified, uncomplicated; K59.89 Other specified functional intestinal disorders; K59.00 Constipation, unspecified; E11.9 Type 2 diabetes mellitus without complications; I50.9 Heart failure, unspecified; G89.29 Other chronic pain; K66.0 Peritoneal adhesions (postprocedural) (postinfection); E83.42 Hypomagnesemia; Z71.89 Other specified counseling; Z79.84 Long term (current) use of oral hypoglycemic drugs | CPT/HCPCS: 99215 ==

== ENCOUNTER 2024-01-04 11:44 | Outpatient (CLI) | payer MEDICARE | END 2024-01-04 23:59 | disposition critical access hospital (66) | LOC: EMS 11:44 | DX: M54.50 Low back pain, unspecified (principal) | CPT/HCPCS: A0425; A0429 ==

== ENCOUNTER 2024-01-04 12:06 | Emergency (ER) | payer MEDICARE ==
[2024-01-04] MEDS: SODIUM CHLORIDE 0.9% 1,000 ML IV STA (13:17)
[2024-01-04] MEDS: HYDROmorphone 2 MG/ML VIAL IVP STA (13:17)
[2024-01-04] MEDS: methylPREDNISolone SUCCINATE 125 MG/2 ML VIAL IVP STA (13:17)
--- NOTE | 2024-01-04 13:20 | ED Physician Documentation ---
History of Present Illness - Stated complaint Stated Complaint: BACK PAIN - Chief complaint Chief Complaint: Back Pain - History obtained from History obtained from: Patient - History of Present Illness Timing: Other (Worsening over the past 1 week.) Pain level max: 9 Pain level now: 9 - Additonal information Additional information: Patient is a 68-year-old female on palliative care presents to the emergency department complaining of chronic back pain. She states this been ongoing for at least 4 years. Usually receives injections in her back from her internal medicine specialist in [place]. Has an appointment to see them but not for several more weeks. She states that she asked her palliative care provider to place her on prednisone but they would only give her 20 mg daily, she states that she normally takes 60 mg daily when her sciatica flares like this. No fevers. No chills. No falls. She has chronic weakness and numbness in the bilateral lower extremities. No loss of bowel or bladder control. She took Tylenol and Dilaudid at home without relief. 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: Ovarian cysts, Other : Incontinence HEENT: Chronic vision loss, Chronic sinusitis Psych: Depression, Anxiety, Obsessive compulsive disorder, Other Musculoskeletal: Osteoarthritis, Other Derm: Other - Past Surgical History Past Surgical History: Yes General: Cholecystectomy, Appendectomy, Bowel surgery, Other Ortho: Knee replacement /CODING AUDITOR: 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, Oophrectomy Cardiovascular: Cardiac catheterization HEENT: Tonsil/Adenoidectomy - Present Medications Home Medications: Ambulatory Orders Medication Instructions Recorded Confirmed Aspirin [Aspirin EC] 650 mg PO 0800,1200,1600,199905/29/13 12/03/23 Metoprolol Tartrate 50 mg PO BID 05/29/13 12/03/23 Fluticasone [Flonase] 2 sprays MATT DAILY PRN 11/26/17 12/03/23 Esomeprazole Magnesium [Nexium] 20 mg PO DAILY 05/03/18 12/03/23 Cetirizine [ZyrTEC] 10 mg PO QPM 09/06/18 12/03/23 predniSONE [Deltasone] 5 mg PO DAILY 09/06/18 12/03/23 buPROPion HCL [Bupropion HCl Sr] 150 mg PO BID 12/21/18 12/03/23 Melatonin 2.5 mg PO QPM 03/02/20 12/03/23 Loperamide [Imodium] 2 mg PO QID PRN cap 04/11/22 12/03/23 guaiFENesin [Mucus Relief ER] 1,200 mg PO BID 12/21/22 12/03/23 Nystatin [Nystop] 1 applic TOP BID each 12/22/22 12/03/23 Dicyclomine [Bentyl] 1 - 2 tab PO DAILY PRN 03/26/23 12/03/23 Potassium Chloride [Micro-K] 20 meq PO PRN PRN 03/26/23 12/03/23 Ondansetron Odt [Zofran Odt] 4 mg TL Q6H PRN #10 tablet 09/18/23 12/03/23 Acetaminophen [Tylenol] 1,000 mg PO BID 11/11/23 12/03/23 Cholecalciferol [Vitamin D3] 5,000 unit PO DAILY 11/11/23 12/03/23 Ondansetron Odt [Zofran Odt] 4 mg TL Q6H PRN #14 tablet 11/11/23 12/03/23 - Allergies Allergies/Adverse Reactions: Allergies Allergy/AdvReac Type Severity Reaction Status Date / Time droperidol [From Inapsine] Allergy Severe EPS Verified 01/04/24 12:21 ibuprofen [From Motrin] Allergy Severe Anaphylaxis Verified 01/04/24 12:21 peanut Allergy Severe Anaphylaxis Verified 01/04/24 12:21 shellfish derived Allergy Severe Anaphylaxis Verified 01/04/24 12:21 Dwgiezf-WFG-KoS Reductase Allergy Severe muscle pain Verified 01/04/24 12:21 Inhibitor [Xajzwbo-Uhh-Ler Reductase Inhibitor] amoxicillin [Amoxicillin] Allergy Intermediate Hives Verified 01/04/24 12:21 cefazolin Allergy Intermediate Hives Verified 01/04/24 12:21 Cephalosporins Allergy Intermediate Hives Verified 01/04/24 12:21 clindamycin Allergy Intermediate Hives Verified 01/04/24 12:21 cyclobenzaprine Allergy Intermediate Hives/night Verified 01/04/24 12:21 [Cyclobenzaprine] castaneda erythromycin base Allergy Intermediate Hives Verified 01/04/24 12:21 [Erythromycin Base] potassium clavulanate * Allergy Intermediate Hives Verified 01/04/24 12:21 [From Augmentin] ketorolac tromethamine * Allergy Anaphylaxis Verified 01/04/24 12:21 [From Toradol] adhesive tape AdvReac Severe BLISTERS Verified 01/04/24 12:21 duloxetine AdvReac Severe Suicidal Verified 01/04/24 12:21 etanercept [From Enbrel] AdvReac Severe Nausea/vomm Verified 01/04/24 12:21 iting/cramp s methotrexate AdvReac Severe N/V/Cramps Verified 01/04/24 12:21 NSAIDS (Non-Steroidal AdvReac Severe Anaphylaxis Verified 01/04/24 12:21 Anti-Inflamma prochlorperazine AdvReac Severe EPS Verified 01/04/24 12:21 pseudoephedrine AdvReac Severe Tachycardia Verified 01/04/24 12:21 sumatriptan AdvReac Severe Widened QRS Verified 01/04/24 12:21 doxycycline AdvReac Intermediate Hives Verified 01/04/24 12:21 gabapentin AdvReac Intermediate Gait Verified 01/04/24 12:21 disturbance latex AdvReac Intermediate Sensitivity Verified 01/04/24 12:21 prochlorperazine edisylate * AdvReac Unknown Unknown Verified 01/04/24 12:21 [From Compazine] morphine AdvReac Unknown Verified 01/04/24 12:21 prochlorperazine maleate * AdvReac Unknown Verified 01/04/24 12:21 [From Compazine] promethazine [From Phenergan] AdvReac Hallucinati Verified 01/04/24 12:21 ons - Social History Does the pt smoke?: Yes Smoking Status: Current every day smoker Does the pt drink ETOH?: Yes Does the pt have substance abuse?: No - Immunizations Immunizations are current?: Yes - POLST Patient has POLST: Yes POLST Status: DNR PD ED PE NORMAL - Vitals Vital signs reviewed: Yes - General General: Alert and oriented X 3, No acute distress - HEENT HEENT: PERRL, Moist mucous membranes - Neck Neck: Supple, no meningeal sign - Cardiac Cardiac: RRR, Strong equal pulses - Respiratory Respiratory: No respiratory distress, Clear bilaterally - Abdomen Abdomen: Soft, Non tender, Non distended - Back Back: No spinal TTP - Derm Derm: Warm and dry - Extremities Extremities: No edema, No calf tenderness / cord - Neuro Neuro: Alert and oriented X 3, Other (Decree sensation over the bilateral lower extremities, chronic, unchanged.) - Psych Psych: Normal mood, Normal affect Results - Vitals Vitals: Vital Signs - 24 hr 01/04/24 12:16 Temperature 37.3 C Heart Rate 78 Respiratory 22 Rate Blood Pressure 152/96 H O2 Saturation 97 Oxygen O2 Source [Without Activity] Room air O2 Source Room air - Labs Labs: Laboratory Tests 01/04/24 01/04/24 13:15 13:15 WBC 8.4 RBC 5.26 Hgb 15.7 Hct 48.2 H MCV 91.6 MCH 29.8 MCHC 32.6 RDW 16.3 H Plt Count 302 MPV 9.4 Neut # (Auto) 4.9 Lymph # (Auto) 2.4 Hemphill # (Auto) 0.8 Eos # (Auto) 0.1 Baso # (Auto) 0.1 Absolute Nucleated RBC 0.00 Nucleated RBC % 0.0 Sodium 139 Potassium 3.7 Chloride 98 L Carbon Dioxide 32 Anion Gap 9.0 BUN 21 H Creatinine 0.7 Estimated GFR (MDRD) 83 L Glucose 106 H Calcium 10.1 Phosphorus 4.6 Magnesium 1.1 L Total Bilirubin 0.3 AST 10 ALT 9 L Alkaline Phosphatase 81 Total Protein 6.6 Albumin 4.3 Globulin 2.3 Albumin/Globulin Ratio 1.9 Lipase 86 H PD Medical Decision Making - ED course Complexity details: reviewed results, re-evaluated patient, considered differential (No cauda equina, no spinal epidural abscess, no fracture, no aortic dissection or evidence of aneursym rupture), d/w patient ED course: 68-year-old female with acute on chronic pain. She was initially given 2 mg of Dilaudid IV along with Solu-Medrol. Pain initially well-controlled, then began to spike up again, she states that she is concerned about a potential pathological fracture in the right hip, therefore a right hip x-ray was ordered. Patient will be signed out to Dr. Monsalve for follow-up on the x-ray and further pain control. Suspect that she would benefit from steroids for home. She already has Dilaudid at home. No evidence of cauda equina, epidural abscess. No new focal neurological deficits. This document was made in part using voice recognition software. While efforts are made to proofread this document, sound alike and grammatical errors may occur. Departure - Departure Clinical Impression: Chronic pain Qualifiers: Chronic pain type: chronic pain syndrome Qualified Code(s): G89.4 - Chronic pain syndrome Sciatica Qualifiers: Laterality: right Qualified Code(s): M54.31 - Sciatica, right side Condition: Stable
[2024-01-04 13:32] LABS: BASOPHILS # (AUTO) 0.1 10^3/uL (0.0-0.1); BASOPHILS % (AUTO) 0.8 %; EOSINOPHILS # (AUTO) 0.1 10^3/uL (0.0-0.7); EOSINOPHILS % (AUTO) 1.1 %; HCT - HEMATOCRIT 48.2 % (37.0-47.0); HGB - HEMOGLOBIN 15.7 g/dL (12.0-16.0); LYMPHOCYTES # (AUTO) 2.4 10^3/uL (1.5-3.5); LYMPHOCYTES % (AUTO) 28.9 %; MEAN CORPUSCULAR HEMOGLOBIN 29.8 pg (27.0-31.0); MEAN CORPUSCULAR HGB CONC 32.6 g/dL (32.0-36.0); MEAN CORPUSCULAR VOLUME 91.6 fL (81.0-99.0); MEAN PLATELET VOLUME 9.4 fL (7.9-10.8); MONOCYTES # (AUTO) 0.8 10^3/uL (0.0-1.0); MONOCYTES % (AUTO) 9.4 %; NEUTROPHILS # (AUTO) 4.9 10^3/uL (1.5-6.6); NEUTROPHILS % (AUTO) 58.7 %; PLT - PLATELET COUNT 302 10^3/uL (130-450); RED BLOOD COUNT 5.26 10^6/uL (4.20-5.40); RED CELL DISTRIBUTION WIDTH 16.3 % (12.0-15.0); WHITE BLOOD COUNT 8.4 x10^3/uL (4.8-10.8)
[2024-01-04 13:54] LABS: ALBUMIN 4.3 g/dL (3.2-5.5); ALBUMIN/GLOBULIN RATIO 1.9 (1.0-2.2); BILIRUBIN,TOTAL 0.3 mg/dL (0.2-1.0); CALCIUM 10.1 mg/dL (8.5-10.3); CREATININE 0.7 mg/dL (0.6-1.3); MAGNESIUM 1.1 mg/dL (1.7-2.3); PHOSPHORUS 4.6 mg/dL (2.5-5.0); POTASSIUM 3.7 mmol/L (3.5-4.5); TOTAL PROTEIN 6.6 g/dL (6.4-8.9)
[2024-01-04] MEDS: HYDROmorphone 1 MG/ML CARPUJECT IVP STA (15:10)
[2024-01-04] MEDS: BISACODYL 10 MG SUPP PR STA (16:08)
--- NOTE | 2024-01-04 16:33 | XRAY Report ---
PROCEDURE: Hip w/Pelvis 2-3V RT INDICATIONS: R hip pain TECHNIQUE: An AP view of the pelvis and a crosstable lateral view of the right hip were acquired. COMPARISON: CT of the abdomen and pelvis dated 12/03/2023 FINDINGS: Bones: No fractures or dislocations. No suspicious bony lesions. Mild right hip degenerative change . Soft tissues: No suspicious soft tissue calcifications or masses. IMPRESSION: No acute bony abnormality. If there remains a high clinical concern for fracture, including inability to bear weight, consider cross-sectional imaging to exclude an occult fracture. Reviewed by: Adrien Capps MD on 01/04/2024 4:31 PM PDT Approved by: Adrien Capps MD on 01/04/2024 4:31 PM PDT Station ID: [id number]
--- NOTE | 2024-01-04 16:57 | ED Physician Documentation ---
ED Addendum - Addendum Addendum: 01/04/24 16:[address] Mace at shift change. Briefly this is a 68-year-old woman with chronic pain and palliative care presents with a pain crisis. She was worried she may have a pathologic fracture of her hips, relevant x-rays were negative with final report reviewed and independent interpretation by me. She was seen and examined at the bedside. At this point she is comfortable and we are talking about disposition. She would like her magnesium which is 1.1 repleted and 2 g magnesium was ordered. She has been on fentanyl patches before as high as 100 mcg/h. We discussed that I am willing to do this but not at that dose, at the lowest dose only. She can also take a higher dose of steroids. She is already on Lyrica and Tylenol. She cannot take NSAIDs. Prior sent from the to discharge she told the nurse that she was almost out of her usual Dilaudid. I offered to write a very limited prescription noting to her that refills should really be coming from her primary prescriber. Disposition: Discharged home Condition: Stable Diagnosis: 1. Hip and back pain Note TO HIM: Please CC To Frances Hand
[2024-01-04] MEDS: MAGNESIUM SULFATE 2 GRAM 2 GM/50 ML BAG IV ONE (17:00)
[2024-01-04 18:31] VITALS: BP 148/86; O2SAT 98
== END 2024-01-04 18:21 | disposition home or self-care (01) ==
LOC: EDUNIT# → ED 12:06
DX: M54.31 Sciatica, right side (principal); M25.551 Pain in right hip; G89.4 Chronic pain syndrome; I11.0 Hypertensive heart disease with heart failure; I50.9 Heart failure, unspecified; E11.9 Type 2 diabetes mellitus without complications; Z86.010 Personal history of colon polyps; Z79.82 Long term (current) use of aspirin; Z79.899 Other long term (current) drug therapy; F17.200 Nicotine dependence, unspecified, uncomplicated
CPT/HCPCS: 36415; 73502; 80053; 83690; 83735; 84100; 85025; 96365; 96375; 96376; 99284; A9270; J1170

== ENCOUNTER 2024-01-13 08:00 | Outpatient (CLI) | payer MEDICARE | END 2024-01-13 23:59 | disposition home or self-care (01) | LOC: PC 08:00 | PROVIDERS: ATTEND Nurse Practitioner Gerontology | DX: Z51.5 Encounter for palliative care (principal); K21.9 Gastro-esophageal reflux disease without esophagitis | CPT/HCPCS: 99426; 99427 ==

== ENCOUNTER 2024-01-13 18:45 | Outpatient (CLI) | payer MEDICARE | END 2024-01-13 23:59 | disposition critical access hospital (66) | LOC: EMS 18:45 | DX: R19.7 Diarrhea, unspecified (principal); R11.0 Nausea; R53.1 Weakness | CPT/HCPCS: A0425; A0427 ==

== ENCOUNTER 2024-01-13 19:06 | Emergency (ER) | payer MEDICARE ==
--- NOTE | 2024-01-13 19:25 | ED Physician Documentation ---
PD HPI NVD - Stated complaint Stated Complaint: DIARRHEA - Chief complaint Chief Complaint: Abd Pain - History obtained from History obtained from: Patient, EMS - Additonal information Additional information: 68-year-old female with history of abdominal hernia, chronic pain, tobacco abuse Presents by EMS from home for nausea, vomiting, diarrhea, generalized abdominal pain. Patient states that multiple friends that she has been in contact with earlier this week have had similar symptoms recently. Patient states that "multiple liters" of diarrhea and emesis came from her this afternoon and she c ould not control it. She felt weak all over with abdominal pain and called 911. Patient has had small bowel obstructions and incarcerated hernias in the past and she was concerned that this may be happening again. Review of Systems Constitutional: denies: Fever, Chills GI: reports: Abdominal Pain, Nausea, Vomiting, Diarrhea. 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: Ovarian cysts, Other : Incontinence HEENT: Chronic vision loss, Chronic sinusitis Psych: Depression, Anxiety, Obsessive compulsive disorder, Other Musculoskeletal: Osteoarthritis, Other Derm: Other - Past Surgical History Past Surgical History: Yes General: Cholecystectomy, Appendectomy, Bowel surgery, Other Ortho: Knee replacement /INSURANCE SALESMAN: 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, Oophrectomy Cardiovascular: Cardiac catheterization HEENT: Tonsil/Adenoidectomy - Present Medications Home Medications: Ambulatory Orders Medication Instructions Recorded Confirmed Aspirin [Aspirin EC] 650 mg PO 0800,1200,1600,199905/29/13 01/07/24 Metoprolol Tartrate 50 mg PO BID 05/29/13 01/07/24 Fluticasone [Flonase] 2 sprays MATT DAILY PRN 11/26/17 01/07/24 Esomeprazole Magnesium [Nexium] 20 mg PO DAILY 05/03/18 01/07/24 Cetirizine [ZyrTEC] 10 mg PO QPM 09/06/18 01/07/24 predniSONE [Deltasone] 5 mg PO DAILY 09/06/18 01/07/24 buPROPion HCL [Bupropion HCl Sr] 150 mg PO BID 12/21/18 01/07/24 Melatonin 2.5 mg PO QPM 03/02/20 01/07/24 Loperamide [Imodium] 2 mg PO QID PRN cap 04/11/22 01/07/24 guaiFENesin [Mucus Relief ER] 1,200 mg PO BID 12/21/22 01/07/24 Nystatin [Nystop] 1 applic TOP BID each 12/22/22 01/07/24 Dicyclomine [Bentyl] 1 - 2 tab PO DAILY PRN 03/26/23 01/07/24 Potassium Chloride [Micro-K] 20 meq PO PRN PRN 03/26/23 01/07/24 Acetaminophen [Tylenol] 1,000 mg PO BID 11/11/23 01/07/24 Cholecalciferol [Vitamin D3] 5,000 unit PO DAILY 11/11/23 01/07/24 Ondansetron Odt [Zofran Odt] 4 mg TL Q6H PRN #14 tablet 11/11/23 01/07/24 Glimepiride 1 tab PO DAILY 01/04/24 01/07/24 Pregabalin [Lyrica] 1 cap PO DAILY 01/04/24 01/07/24 buPROPion [Wellbutrin Xl] 1 tab PO BID 01/04/24 01/07/24 fentaNYL 12 MCG PATCH [Duragesic 1 each TD Q3D #5 patch 01/04/24 01/07/24 12mcg patch] predniSONE [Deltasone] 20 mg PO [id number] #21 tab 01/04/24 01/07/24 Pregabalin [Lyrica] 25 mg PO Q8HR 01/07/24 01/07/24 - Allergies Allergies/Adverse Reactions: Allergies Allergy/AdvReac Type Severity Reaction Status Date / Time droperidol [From Inapsine] Allergy Severe EPS Verified 01/04/24 12:21 ibuprofen [From Motrin] Allergy Severe Anaphylaxis Verified 01/04/24 12:21 peanut Allergy Severe Anaphylaxis Verified 01/04/24 12:21 shellfish derived Allergy Severe Anaphylaxis Verified 01/04/24 12:21 Rpujstv-MEF-UiV Reductase Allergy Severe muscle pain Verified 01/04/24 12:21 Inhibitor [Ykapeim-Xib-Ypg Reductase Inhibitor] amoxicillin [Amoxicillin] Allergy Intermediate Hives Verified 01/04/24 12:21 cefazolin Allergy Intermediate Hives Verified 01/04/24 12:21 Cephalosporins Allergy Intermediate Hives Verified 01/04/24 12:21 clindamycin Allergy Intermediate Hives Verified 01/04/24 12:21 cyclobenzaprine Allergy Intermediate Hives/night Verified 01/04/24 12:21 [Cyclobenzaprine] castaneda erythromycin base Allergy Intermediate Hives Verified 01/04/24 12:21 [Erythromycin Base] potassium clavulanate * Allergy Intermediate Hives Verified 01/04/24 12:21 [From Augmentin] ketorolac tromethamine * Allergy Anaphylaxis Verified 01/04/24 12:21 [From Toradol] adhesive tape AdvReac Severe BLISTERS Verified 01/04/24 12:21 duloxetine AdvReac Severe Suicidal Verified 01/04/24 12:21 etanercept [From Enbrel] AdvReac Severe Nausea/vomm Verified 01/04/24 12:21 iting/cramp s methotrexate AdvReac Severe N/V/Cramps Verified 01/04/24 12:21 NSAIDS (Non-Steroidal AdvReac Severe Anaphylaxis Verified 01/04/24 12:21 Anti-Inflamma prochlorperazine AdvReac Severe EPS Verified 01/04/24 12:21 pseudoephedrine AdvReac Severe Tachycardia Verified 01/04/24 12:21 sumatriptan AdvReac Severe Widened QRS Verified 01/04/24 12:21 doxycycline AdvReac Intermediate Hives Verified 01/04/24 12:21 gabapentin AdvReac Intermediate Gait Verified 01/04/24 12:21 disturbance latex AdvReac Intermediate Sensitivity Verified 01/04/24 12:21 prochlorperazine edisylate * AdvReac Unknown Unknown Verified 01/04/24 12:21 [From Compazine] morphine AdvReac Unknown Verified 01/04/24 12:21 prochlorperazine maleate * AdvReac Unknown Verified 01/04/24 12:21 [From Compazine] promethazine [From Phenergan] AdvReac Hallucinati Verified 01/04/24 12:21 ons - Social History Does the pt smoke?: Yes Smoking Status: Current every day smoker Does the pt drink ETOH?: Yes Does the pt have substance abuse?: No - Immunizations Immunizations are current?: Yes - POLST Patient has POLST: Yes POLST Status: DNR PD ED PE NORMAL - Vitals Vital signs reviewed: Yes - General General: Alert and oriented X 3, Other (Appears chronically unwell, older than stated age, debilitated, frail) - HEENT HEENT: Other - Cardiac Cardiac: RRR, Strong equal pulses - Respiratory Respiratory: No respiratory distress, Clear bilaterally - Abdomen Abdomen: Soft, Non distended, Other (Generalized tenderness to deep palpation, no palpable masses) - Derm Derm: Normal color, Warm and dry, No rash - Neuro Neuro: Alert and oriented X 3, agricultural extension agent 2-12 intact, No motor deficit, Normal speech Results - Vitals Vitals: Vital Signs - 24 hr 01/13/24 01/13/24 01/13/24 19:14 19:28 21:53 Temperature 36.2 C L Heart Rate 95 90 93 Respiratory 18 28 H 19 Rate Blood Pressure 112/88 H 112/67 155/97 H O2 Saturation 98 93 100 01/13/24 22:51 Temperature Heart Rate 75 Respiratory 16 Rate Blood Pressure 135/73 H O2 Saturation 97 Oxygen O2 Source [Without Activity] Room air O2 Source Room air - Labs Labs: Laboratory Tests 01/13/24 01/13/24 01/13/24 19:47 19:47 19:47 WBC 22.8 H RBC 6.03 H Hgb 18.3 H Hct 55.2 H MCV 91.5 MCH 30.3 MCHC 33.2 RDW 17.9 H Plt Count 382 MPV 9.4 Neut # (Auto) Not Reportable Lymph # (Auto) Not Reportable Runnels # (Auto) Not Reportable Eos # (Auto) Not Reportable Baso # (Auto) Not Reportable Absolute Nucleated RBC Not Reportable Total Counted 100 Band Neuts % (Manual) 3 Abnorm Lymph % (Manual) 3 Nucleated RBC % Not Reportable Neutrophils # (Manual) 19.6 H Lymphocytes # (Manual) 2.1 Monocytes # (Manual) 0.9 Eosinophils # (Manual) 0.2 Basophils # (Manual) 0.0 Differential Comment MANUAL DIFFERENTIAL Manual Slide Review Platelet Estimate NORMAL (130-450,000) Platelet Morphology NORMAL APPEARANCE RBC Morph Micro Appear NORMAL APPEARANCE Sodium 133 L Potassium 3.5 Chloride 89 L Carbon Dioxide 29 Anion Gap 15.0 H BUN 30 H Creatinine 0.8 Estimated GFR (MDRD) 72 L Glucose 166 H Lactic Acid 2.8 H Calcium 10.9 H Magnesium 0.8 L* Total Bilirubin 0.7 AST 14 ALT 21 Alkaline Phosphatase 95 Total Protein 7.5 Albumin 4.9 Globulin 2.6 Albumin/Globulin Ratio 1.9 Lipase 39 01/13/24 01/13/24 22:45 22:45 WBC 13.3 H RBC 5.10 Hgb 15.5 Hct 47.5 H MCV 93.1 MCH 30.4 MCHC 32.6 RDW 16.7 H Plt Count MPV 10.1 Neut # (Auto) 10.1 H Lymph # (Auto) 1.9 Runnels # (Auto) 1.0 Eos # (Auto) 0.1 Baso # (Auto) 0.1 Absolute Nucleated RBC 0.00 Total Counted Band Neuts % (Manual) Abnorm Lymph % (Manual) Nucleated RBC % 0.0 Neutrophils # (Manual) Lymphocytes # (Manual) Monocytes # (Manual) Eosinophils # (Manual) Basophils # (Manual) Differential Comment Manual Slide Review Indicated Platelet Estimate NORMAL (130-450,000) Platelet Morphology NORMAL APPEARANCE RBC Morph Micro Appear Sodium 136 Potassium 3.5 Chloride 98 L Carbon Dioxide 29 Anion Gap 9.0 BUN 25 H Creatinine 0.7 Estimated GFR (MDRD) 83 L Glucose 116 H Lactic Acid Calcium 8.8 Magnesium Total Bilirubin AST ALT Alkaline Phosphatase Total Protein Albumin Globulin Albumin/Globulin Ratio Lipase PD Medical Decision Making - ED course Complexity details: reviewed old records, reviewed results, re-evaluated patient, considered differential, d/w patient ED course: Vomiting and diarrhea with generalized abdominal pain. The diarrhea would make bowel obstruction less likely, however patient does have history of recurrent SBO's and hernias that have not been deemed a good candidate for repair.Abdomen soft, no peritoneal signs. Laboratory work ordered. Initial laboratory work significant for leukocytosis, hypomagnesemia, lactic acid 2.8. Leukocytosis possibly secondary to acute reaction to vomiting, since patient recently had SBO with elevated lactic acid and leukocytosis will order CT of the abdomen and pelvis with contrast. No other signs or symptoms of bowel obstruction at this time. No further episodes of vomiting since patient arrived to the emergency department. CT scan shows nonspecific findings consistent with enteritis. Repeat laboratory work after 2 L of fluids show improvement and near correction of patient's leukocytosis, Chloride, sodium.Patient has tolerated p.o., she is resting comfortably in bed, has had multiple phone conversations with her friends and is in good spirits. Patient informed of her lab and imaging findings. She states that she has Zofran at home and takes it daily. Patient sent in taxi back home. Departure - Departure Disposition: Home, Self Care Clinical Impression: Hypomagnesemia, Gastroenteritis Nausea and vomiting Qualifiers: Vomiting type: unspecified Qualified Code(s): R11.2 - Nausea with vomiting, unspecified Condition: Stable Instructions: ED Diet Vomiting Diarrhea Comments: Your laboratory work improved after getting IV fluids. You did have low magnesium today which we supplemented with IV magnesium. Your CT did not show any obstruction or incarcerated hernia. Take Zofran at home for nausea and vomiting. Follow-up with your primary doctor Forms: PCP List
[2024-01-13 19:58] LABS: BASOPHILS % (AUTO) 0.7 %; EOSINOPHILS % (AUTO) 0.2 %; HCT - HEMATOCRIT 55.2 % (37.0-47.0); HGB - HEMOGLOBIN 18.3 g/dL (12.0-16.0); LYMPHOCYTES % (AUTO) 10.8 %; MEAN CORPUSCULAR HEMOGLOBIN 30.3 pg (27.0-31.0); MEAN CORPUSCULAR HGB CONC 33.2 g/dL (32.0-36.0); MEAN CORPUSCULAR VOLUME 91.5 fL (81.0-99.0); MEAN PLATELET VOLUME 9.4 fL (7.9-10.8); MONOCYTES % (AUTO) 5.6 %; NEUTROPHILS % (AUTO) 81.7 %; PLT - PLATELET COUNT 382 10^3/uL (130-450); RED BLOOD COUNT 6.03 10^6/uL (4.20-5.40); RED CELL DISTRIBUTION WIDTH 17.9 % (12.0-15.0); WHITE BLOOD COUNT 22.8 x10^3/uL (4.8-10.8)
[2024-01-13 20:13] LABS: ALBUMIN 4.9 g/dL (3.2-5.5); ALBUMIN/GLOBULIN RATIO 1.9 (1.0-2.2); BILIRUBIN,TOTAL 0.7 mg/dL (0.2-1.0); CALCIUM 10.9 mg/dL (8.5-10.3); CREATININE 0.8 mg/dL (0.6-1.3); POTASSIUM 3.5 mmol/L (3.5-4.5); TOTAL PROTEIN 7.5 g/dL (6.4-8.9)
[2024-01-13 20:17] LABS: MAGNESIUM 0.8 mg/dL (1.7-2.3)
[2024-01-13] MEDS: SODIUM CHLORIDE 0.9% 1,000 ML IV STA ×2 (20:25→21:10)
[2024-01-13] MEDS: ONDANSETRON 4 MG/2 ML VIAL IVP STA (20:25)
[2024-01-13 20:41] LABS: ABNORMAL LYMPHS % (MANUAL) 3 %; BAND NEUTROPHILS % (MANUAL) 3 %; EOSINOPHILS # (MANUAL) 0.2 10^3/uL (0-0.7); LYMPHOCYTES # (MANUAL) 2.1 10^3/uL (1.5-3.5); LYMPHOCYTES % (MANUAL) 6 %; MONOCYTES # (MANUAL) 0.9 10^3/uL (0.0-1.0); NEUTROPHILS # (MANUAL) 19.6 10^3/uL (1.5-6.6)
[2024-01-13 20:42] LABS: DIFFERENTIAL COMMENT MANUAL DIFFERENTIAL; PLATELET ESTIMATE, MANUAL NORMAL (130-450,000) (NORMAL); PLATELET MORPHOLOGY NORMAL APPEARANCE (NORMAL); RBC MORPHOLOGY (MULTIPLE) NORMAL APPEARANCE (NORMAL)
[2024-01-13] MEDS: MAGNESIUM SULFATE 2 GRAM 2 GM/50 ML BAG IV ONE (20:46)
[2024-01-13] MEDS ORDERED: iohexoL-300 100 ML VIAL ONE (22:51)
[2024-01-13 22:55] LABS: BASOPHILS # (AUTO) 0.1 10^3/uL (0.0-0.1); BASOPHILS % (AUTO) 0.5 %; EOSINOPHILS # (AUTO) 0.1 10^3/uL (0.0-0.7); EOSINOPHILS % (AUTO) 0.4 %; HCT - HEMATOCRIT 47.5 % (37.0-47.0); HGB - HEMOGLOBIN 15.5 g/dL (12.0-16.0); LYMPHOCYTES # (AUTO) 1.9 10^3/uL (1.5-3.5); LYMPHOCYTES % (AUTO) 14.4 %; MEAN CORPUSCULAR HEMOGLOBIN 30.4 pg (27.0-31.0); MEAN CORPUSCULAR HGB CONC 32.6 g/dL (32.0-36.0); MEAN CORPUSCULAR VOLUME 93.1 fL (81.0-99.0); MEAN PLATELET VOLUME 10.1 fL (7.9-10.8); MONOCYTES % (AUTO) 7.8 %; NEUTROPHILS # (AUTO) 10.1 10^3/uL (1.5-6.6); NEUTROPHILS % (AUTO) 75.7 %; RED CELL DISTRIBUTION WIDTH 16.7 % (12.0-15.0); WHITE BLOOD COUNT 13.3 x10^3/uL (4.8-10.8)
[2024-01-13 22:59] LABS: SLIDE REVIEW? Indicated
[2024-01-13 23:02] VITALS: O2SAT 97
[2024-01-13 23:10] LABS: CALCIUM 8.8 mg/dL (8.5-10.3); CREATININE 0.7 mg/dL (0.6-1.3); POTASSIUM 3.5 mmol/L (3.5-4.5)
[2024-01-13 23:13] LABS: PLATELET ESTIMATE, MANUAL NORMAL (130-450,000) (NORMAL); PLATELET MORPHOLOGY NORMAL APPEARANCE (NORMAL)
[2024-01-13] MEDS: iohexoL-300 100 ML VIAL IVP ONE (23:19)
--- NOTE | 2024-01-13 23:39 | CT Report ---
PROCEDURE: Abdomen/Pelvis W INDICATIONS: N/V/ABD PAIN, HX SBO CONTRAST: OMNI 300, 100mls TECHNIQUE: After the administration of intravenous contrast, a CT scan of the abdomen and pelvis was performed. Images were recorded and evaluated at appropriate window settings. Reformats: coronal and sagittal. F or radiation dose reduction, the following was used: automated exposure control, adjustment of mA and /or kV according to patient size. COMPARISON: CT abdomen/pelvis 12/03/2023 and 11/11/2023. FINDINGS: Image quality: Diagnostic. Lower chest: Unremarkable. Liver: No solid mass. Mildly nodular liver surface. Gallbladder: Status post cholecystectomy. Biliary tree: No intrahepatic or extrahepatic dilation, accounting for age. Spleen: No splenomegaly. Pancreas: No pancreatic ductal dilation. Adrenals: No adrenal nodule. Kidneys and ureters: No hydronephrosis. No renal cystic lesion which requires follow up. No solid mas s. Stable nonobstructing 3 mm left renal calculus. Stomach, bowel and peritoneum: Nondilated fluid-filled loops of small bowel are seen throughout the c entral abdomen. Areas of mild small bowel wall thickening are also seen in the central abdomen. Liqui d stool material is seen throughout the colon. Surgical anastomosis is seen in the upper abdomen. No pathologic free fluid. Lymph nodes: No central or retroperitoneal adenopathy. Vessels: No infrarenal aortic aneurysm. Patent portal vein. PELVIS Reproductive organs: Status post hysterectomy. Bladder: No abnormal wall thickening, accounting for underdistention. Pelvic lymph nodes: No pelvic adenopathy by size criteria. Bones: No aggressive osseous abnormality. Chronic T12 compression fracture appears unchanged. Other: Diastasis of the rectus abdominis muscles. Multiple ventral hernias are seen. Upper abdominal ventral hernia contains one wall of transverse colon without bowel obstruction. An infraumbilical her jerome contains small amount of fluid versus a focal loop of small bowel. IMPRESSION: 1.Nondilated fluid-filled loops of small bowel in the central abdomen with segments of bowel wall thi ckening. Findings are suspicious for possible nonspecific enterocolitis although early or partial sma ll bowel obstruction is not excluded. 2.Infraumbilical ventral hernia contains fluid and likely a short segment of small bowel without defi nite focal obstruction. Additional ventral hernias are seen containing fat and a wall of transverse c olon. Reviewed by: Yair Jackson MD on 01/13/2024 11:38 PM PDT Approved by: Yair Jackson MD on 01/13/2024 11:38 PM PDT Station ID: [id number]
[2024-01-14 01:42] VITALS: BP 142/80
== END 2024-01-14 01:41 | disposition home or self-care (01) ==
LOC: EDUNIT# → ED 19:06
DX: K52.9 Noninfective gastroenteritis and colitis, unspecified (principal); E83.42 Hypomagnesemia; R11.2 Nausea with vomiting, unspecified; I11.0 Hypertensive heart disease with heart failure; I50.9 Heart failure, unspecified; E11.9 Type 2 diabetes mellitus without complications; Z66 Do not resuscitate; F17.200 Nicotine dependence, unspecified, uncomplicated; Z79.82 Long term (current) use of aspirin; Z79.899 Other long term (current) drug therapy; Z79.84 Long term (current) use of oral hypoglycemic drugs; Z91.040 Latex allergy status
CPT/HCPCS: 36415; 74177; 80048; 80053; 83605; 83690; 83735; 85025; 93005; 96361; 96365; 96375; 99284; Q9967

== ENCOUNTER 2024-01-14 08:00 | Outpatient (CLI) | payer MEDICARE | END 2024-01-14 23:58 | disposition home or self-care (01) | LOC: PC 08:00 | PROVIDERS: ATTEND Nurse Practitioner Gerontology | DX: Z51.5 Encounter for palliative care (principal); R45.851 Suicidal ideations; G89.4 Chronic pain syndrome; M79.2 Neuralgia and neuritis, unspecified; F32.A Depression, unspecified; L27.0 Generalized skin eruption due to drugs and medicaments taken internally; T50.905A Adverse effect of unspecified drugs, medicaments and biological substances, initial encounter; K21.9 Gastro-esophageal reflux disease without esophagitis; Z79.899 Other long term (current) drug therapy; Z79.891 Long term (current) use of opiate analgesic; Z79.84 Long term (current) use of oral hypoglycemic drugs; Z74.2 Need for assistance at home and no other household member able to render care; Z71.89 Other specified counseling | CPT/HCPCS: 99349 ==

== ENCOUNTER 2024-01-18 22:14 | Emergency (ER) | payer MEDICARE ==
[2024-01-18 22:49] LABS: BASOPHILS % (AUTO) 0.4 %; EOSINOPHILS # (AUTO) 0.1 10^3/uL (0.0-0.7); EOSINOPHILS % (AUTO) 1.2 %; HCT - HEMATOCRIT 48.1 % (37.0-47.0); HGB - HEMOGLOBIN 15.4 g/dL (12.0-16.0); LYMPHOCYTES # (AUTO) 0.9 10^3/uL (1.5-3.5); LYMPHOCYTES % (AUTO) 8.5 %; MEAN CORPUSCULAR HEMOGLOBIN 29.5 pg (27.0-31.0); MEAN CORPUSCULAR VOLUME 92.1 fL (81.0-99.0); MEAN PLATELET VOLUME 8.8 fL (7.9-10.8); MONOCYTES # (AUTO) 0.8 10^3/uL (0.0-1.0); NEUTROPHILS # (AUTO) 8.4 10^3/uL (1.5-6.6); PLT - PLATELET COUNT 227 10^3/uL (130-450); RED BLOOD COUNT 5.22 10^6/uL (4.20-5.40); RED CELL DISTRIBUTION WIDTH 16.2 % (12.0-15.0); WHITE BLOOD COUNT 10.4 x10^3/uL (4.8-10.8)
[2024-01-18 23:08] LABS: ALBUMIN/GLOBULIN RATIO 1.7 (1.0-2.2); BILIRUBIN,TOTAL 0.5 mg/dL (0.2-1.0); CALCIUM 8.7 mg/dL (8.5-10.3); CREATININE 0.5 mg/dL (0.6-1.3); TOTAL PROTEIN 6.3 g/dL (6.4-8.9)
--- NOTE | 2024-01-18 23:35 | ED Physician Documentation ---
PD HPI NVD - Stated complaint Stated Complaint: V/D ABD PX - Chief complaint Chief Complaint: Abd Pain - History obtained from History obtained from: Patient - History of Present Illness Timing - onset: How many days ago (22) Timing - duration: Days Timing - details: Gradual onset, Still present Associated symptoms: Abdominal pain, Near syncope / syncope Contributing factors: Other (hx of IBS) Improved by: Vomiting, BM Worsened by: Position, Palpation Similar symptoms before: Diagnosis (IBS) Recently seen: Emergency Dept - Additonal information Additional information: Belkis Romero is a 68-year-old female who has a prior history of ischemic bowel about 12 years ago and since that time she has had a problem with irritable bowel syndrome. She has frequent episodes of nausea vomiting and diarrhea and she has had a number of bowel obstructions previously as well. Review of Systems Constitutional: denies: Fever Eyes: denies: Decreased vision Ears: denies: Ear pain Nose: denies: Congestion Throat: denies: Sore throat Cardiac: denies: Chest pain / pressure, Palpitations Respiratory: denies: Dyspnea, Cough GI: reports: Abdominal Pain, Nausea, Vomiting, Diarrhea : denies: Dysuria, Frequency Skin: denies: Rash Musculoskeletal: denies: Neck pain, Back pain, Extremity pain Neurologic: reports: Generalized weakness. 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: Ovarian cysts, Other : Incontinence HEENT: Chronic vision loss, Chronic sinusitis Psych: Depression, Anxiety, Obsessive compulsive disorder, Other Musculoskeletal: Osteoarthritis, Other Derm: Other - Past Surgical History Past Surgical History: Yes General: Cholecystectomy, Appendectomy, Bowel surgery, Other Ortho: Knee replacement /TESTING PROJECTS ADMINISTRATOR: 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, Oophrectomy Cardiovascular: Cardiac catheterization HEENT: Tonsil/Adenoidectomy - Present Medications Home Medications: Ambulatory Orders Medication Instructions Recorded Confirmed Aspirin [Aspirin EC] 650 mg PO 0800,1200,1600,199905/29/13 01/07/24 Metoprolol Tartrate 50 mg PO BID 05/29/13 01/07/24 Fluticasone [Flonase] 2 sprays MATT DAILY PRN 11/26/17 01/07/24 Esomeprazole Magnesium [Nexium] 20 mg PO DAILY 05/03/18 01/07/24 Cetirizine [ZyrTEC] 10 mg PO QPM 09/06/18 01/07/24 predniSONE [Deltasone] 5 mg PO DAILY 09/06/18 01/07/24 buPROPion HCL [Bupropion HCl Sr] 150 mg PO BID 12/21/18 01/07/24 Melatonin 2.5 mg PO QPM 03/02/20 01/07/24 Loperamide [Imodium] 2 mg PO QID PRN cap 04/11/22 01/07/24 guaiFENesin [Mucus Relief ER] 1,200 mg PO BID 12/21/22 01/07/24 Nystatin [Nystop] 1 applic TOP BID each 12/22/22 01/07/24 Dicyclomine [Bentyl] 1 - 2 tab PO DAILY PRN 03/26/23 01/07/24 Potassium Chloride [Micro-K] 20 meq PO PRN PRN 03/26/23 01/07/24 Acetaminophen [Tylenol] 1,000 mg PO BID 11/11/23 01/07/24 Cholecalciferol [Vitamin D3] 5,000 unit PO DAILY 11/11/23 01/07/24 Ondansetron Odt [Zofran Odt] 4 mg TL Q6H PRN #14 tablet 11/11/23 01/07/24 Glimepiride 1 tab PO DAILY 01/04/24 01/07/24 Pregabalin [Lyrica] 1 cap PO DAILY 01/04/24 01/07/24 buPROPion [Wellbutrin Xl] 1 tab PO BID 01/04/24 01/07/24 fentaNYL 12 MCG PATCH [Duragesic 1 each TD Q3D #5 patch 01/04/24 01/07/24 12mcg patch] predniSONE [Deltasone] 20 mg PO [id number] #21 tab 01/04/24 01/07/24 Pregabalin [Lyrica] 25 mg PO Q8HR 01/07/24 01/07/24 - Allergies Allergies/Adverse Reactions: Allergies Allergy/AdvReac Type Severity Reaction Status Date / Time droperidol [From Inapsine] Allergy Severe EPS Verified 01/18/24 22:26 ibuprofen [From Motrin] Allergy Severe Anaphylaxis Verified 01/18/24 22:26 peanut Allergy Severe Anaphylaxis Verified 01/18/24 22:26 shellfish derived Allergy Severe Anaphylaxis Verified 01/18/24 22:26 Icumyae-ZOU-ZuY Reductase Allergy Severe muscle pain Verified 01/18/24 22:26 Inhibitor [Yudplis-Bol-Xca Reductase Inhibitor] amoxicillin [Amoxicillin] Allergy Intermediate Hives Verified 01/18/24 22:26 cefazolin Allergy Intermediate Hives Verified 01/18/24 22:26 Cephalosporins Allergy Intermediate Hives Verified 01/18/24 22:26 clindamycin Allergy Intermediate Hives Verified 01/18/24 22:26 cyclobenzaprine Allergy Intermediate Hives/night Verified 01/18/24 22:26 [Cyclobenzaprine] castaneda erythromycin base Allergy Intermediate Hives Verified 01/18/24 22:26 [Erythromycin Base] potassium clavulanate * Allergy Intermediate Hives Verified 01/18/24 22:26 [From Augmentin] ketorolac tromethamine * Allergy Anaphylaxis Verified 01/18/24 22:26 [From Toradol] adhesive tape AdvReac Severe BLISTERS Verified 01/18/24 22:26 duloxetine AdvReac Severe Suicidal Verified 01/18/24 22:26 etanercept [From Enbrel] AdvReac Severe Nausea/vomm Verified 01/18/24 22:26 iting/cramp s methotrexate AdvReac Severe N/V/Cramps Verified 01/18/24 22:26 NSAIDS (Non-Steroidal AdvReac Severe Anaphylaxis Verified 01/18/24 22:26 Anti-Inflamma prochlorperazine AdvReac Severe EPS Verified 01/18/24 22:26 pseudoephedrine AdvReac Severe Tachycardia Verified 01/18/24 22:26 sumatriptan AdvReac Severe Widened QRS Verified 01/18/24 22:26 doxycycline AdvReac Intermediate Hives Verified 01/18/24 22:26 gabapentin AdvReac Intermediate Gait Verified 01/18/24 22:26 disturbance latex AdvReac Intermediate Sensitivity Verified 01/18/24 22:26 prochlorperazine edisylate * AdvReac Unknown Unknown Verified 01/18/24 22:26 [From Compazine] fentanyl AdvReac Rash Verified 01/18/24 22:26 morphine AdvReac Unknown Verified 08/05/24 22:26 pregabalin [From Lyrica] AdvReac Rash Verified 01/18/24 22:26 prochlorperazine maleate * AdvReac Unknown Verified 01/18/24 22:26 [From Compazine] promethazine [From Phenergan] AdvReac Hallucinati Verified 01/18/24 22:26 ons - Social History Does the pt smoke?: Yes Smoking Status: Current every day smoker Does the pt drink ETOH?: Yes Does the pt have substance abuse?: No - Immunizations Immunizations are current?: Yes - POLST Patient has POLST: Yes POLST Status: DNR PD ED PE NORMAL - Vitals Vital signs reviewed: Yes (Hypertensive) - General General: Alert and oriented X 3, No acute distress, Well developed/nourished - HEENT HEENT: Atraumatic, PERRL, EOMI, Other (Dry mucous membranes) - Neck Neck: Supple, no meningeal sign, No bony TTP - Cardiac Cardiac: RRR, No murmur - Respiratory Respiratory: No respiratory distress, Clear bilaterally - Abdomen Abdomen: Normal bowel sounds, Soft, Other (Mild generalized tenderness without guarding or rebound) - Back Back: No CVA TTP, No spinal TTP - Derm Derm: Normal color, Warm and dry, No rash - Extremities Extremities: No deformity, No edema - Neuro Neuro: Alert and oriented X 3, reservoir engineer 2-12 intact, No motor deficit, Normal speech Eye Opening: Spontaneous Motor: Obeys Commands Verbal: Oriented GCS Score: 15 - Psych Psych: Normal mood, Normal affect Results - Vitals Vitals: Vital Signs - 24 hr 01/18/24 01/19/24 22:20 00:22 Temperature 36.6 C Heart Rate 86 81 Respiratory 19 18 Rate Blood Pressure 148/90 H 136/84 H O2 Saturation 99 99 Oxygen O2 Source [Without Activity] Room air O2 Source Room air - Labs Labs: Laboratory Tests 01/18/24 01/18/24 01/18/24 22:44 22:44 22:44 WBC 10.4 RBC 5.22 Hgb 15.4 Hct 48.1 H MCV 92.1 MCH 29.5 MCHC 32.0 RDW 16.2 H Plt Count 227 MPV 8.8 Neut # (Auto) 8.4 H Lymph # (Auto) 0.9 L [place] # (Auto) 0.8 Eos # (Auto) 0.1 Baso # (Auto) 0.0 Absolute Nucleated RBC 0.00 Nucleated RBC % 0.0 Sodium 134 L Potassium 3.0 L Chloride 96 L Carbon Dioxide 25 Anion Gap 13.0 BUN 11 Creatinine 0.5 L Estimated GFR (MDRD) 123 Glucose 169 H Calcium 8.7 Magnesium 0.6 L* Total Bilirubin 0.5 AST 19 ALT 29 Alkaline Phosphatase 94 Total Protein 6.3 L Albumin 4.0 Globulin 2.3 Albumin/Globulin Ratio 1.7 Lipase 37 Procedures - IVC sono (time) 022 Bedside IVC sono: IVC measures (cm) (1.12), Dehydration (est 1 liter deficit after 2 liters given) PD Medical Decision Making - ED course Complexity details: reviewed old records, reviewed results, re-evaluated patient, considered differential, d/w patient, d/w family Reviewed Lab Results: We reviewed a complete blood count showing a normal white blood cell count normal hemoglobin hematocrit and platelets chemistries showed a low sodium at 134 potassium low at 3 chloride low at 96. BUN and creatinine were normal glucose elevated at 169 liver functions normal magnesium critically low at 0.6. I interpreted these laboratory studies to suggest the patient has electrolyte abnormality associated with diarrhea. ED course: Belkis Sanchez presented to our emergency department today after having more significant diarrhea than she is used to having. She states she woke up in a pool of diarrhea. She felt weak and was nauseated as well. She was administered a liter of lactated Ringer's with a liter of saline 2 g of magnesium and a 10 mill equivalent rider of potassium. Following this treatment I interrogated her IVC with POCUS and found that she still had a volume deficit of about 1 L. We elected to administer further fluids as this patient will always need a buffer. She does have a port in place making administration of this treatment possible. At the conclusion of treatment the patient felt much improved. Departure - Departure Disposition: 01 Home, Self Care Clinical Impression: Hypokalemia, Dehydration, Hypomagnesemia Diarrhea Qualifiers: Diarrhea type: unspecified type Qualified Code(s): R19.7 - Diarrhea, unspecified Vomiting Qualifiers: Vomiting type: unspecified Nausea presence: with nausea Qualified Code(s): R11.2 - Nausea with vomiting, unspecified Condition: Stable Instructions: Hypokalemia Dc, Hypomagnesemia Dc, ED Dehydration, ED Diet Vomiting Diarrhea Follow-Up: Giulia Lutz MD [Primary Care Provider] - Comments: Belkis, today it looks like you were significantly dehydrated and we have provided some IV fluid for you as well as some potassium and magnesium. My recommendation is to take some additional potassium when you are at home. A follow-up with your server administrator is recommended. Your level of dehydration today was significant enough that this may cause some problem with poor blood supply to the intestines. This may be why your pain increases when you are dehydrated. Again follow-up with your server administrator. Forms: PCP List
[2024-01-18] MEDS: LACTATED RINGERS 1,000 ML IV ONE (23:47)
[2024-01-19] MEDS: POTASSIUM CHLOR 10 MEQ/100 ML 10 MEQ/100 ML BAG IV ONE (01:25)
[2024-01-19] MEDS: POTASSIUM CHLORIDE INJ 40 MEQ in SODIUM CHLORIDE 0.9% 500 ML IV ONE (01:32)
[2024-01-19] MEDS: SODIUM CHLORIDE 0.9% 1,000 ML IV STA (01:35)
[2024-01-19] MEDS: MAGNESIUM SULFATE 2 GRAM 2 GM/50 ML BAG IV ONE (01:56)
[2024-01-19 03:18] VITALS: BP 137/68; O2SAT 100
== END 2024-01-19 03:07 | disposition home or self-care (01) ==
LOC: ED 22:14
DX: E87.6 Hypokalemia (principal); E86.0 Dehydration; E83.42 Hypomagnesemia; R19.7 Diarrhea, unspecified; I11.0 Hypertensive heart disease with heart failure; I50.9 Heart failure, unspecified; E11.9 Type 2 diabetes mellitus without complications; Z86.010 Personal history of colon polyps; Z79.899 Other long term (current) drug therapy; F17.200 Nicotine dependence, unspecified, uncomplicated
CPT/HCPCS: 36415; 80053; 83690; 83735; 85025; 96361; 96365; 96366; 96368; 96375; 99284; J7120

== ENCOUNTER 2024-02-04 11:30 | Outpatient (CLI) | payer MEDICARE | END 2024-02-04 23:59 | disposition home or self-care (01) | LOC: PC 11:30 | PROVIDERS: ATTEND Nurse Practitioner Gerontology | DX: Z51.5 Encounter for palliative care (principal); F32.A Depression, unspecified; M79.2 Neuralgia and neuritis, unspecified; D12.6 Benign neoplasm of colon, unspecified; E66.9 Obesity, unspecified; G89.29 Other chronic pain; R10.9 Unspecified abdominal pain; R11.2 Nausea with vomiting, unspecified; R19.7 Diarrhea, unspecified; Z71.89 Other specified counseling | CPT/HCPCS: 99215 ==

== ENCOUNTER 2024-02-11 08:00 | Outpatient (CLI) | payer MEDICARE | END 2024-02-11 23:59 | disposition home or self-care (01) | LOC: PC 08:00 | PROVIDERS: ATTEND Nurse Practitioner Gerontology | DX: Z51.5 Encounter for palliative care (principal); R10.9 Unspecified abdominal pain; G89.29 Other chronic pain; M79.2 Neuralgia and neuritis, unspecified; R53.1 Weakness; F32.A Depression, unspecified; Z71.89 Other specified counseling; F17.210 Nicotine dependence, cigarettes, uncomplicated; Z79.899 Other long term (current) drug therapy; Z74.8 Other problems related to care provider dependency; T50.996A Underdosing of other drugs, medicaments and biological substances, initial encounter; Z91.128 Patient's intentional underdosing of medication regimen for other reason | CPT/HCPCS: 99215 ==

== ENCOUNTER 2024-02-18 08:00 | Outpatient (CLI) | payer MEDICARE | END 2024-02-18 23:59 | disposition home or self-care (01) | LOC: PC 08:00 | PROVIDERS: ATTEND Nurse Practitioner Gerontology | DX: Z51.5 Encounter for palliative care (principal); G89.29 Other chronic pain; R10.9 Unspecified abdominal pain; G62.9 Polyneuropathy, unspecified; F32.1 Major depressive disorder, single episode, moderate; R53.1 Weakness; E11.9 Type 2 diabetes mellitus without complications; I50.9 Heart failure, unspecified; Z71.89 Other specified counseling | CPT/HCPCS: 99215 ==

== ENCOUNTER 2024-09-19 10:42 | Inpatient (IN) ==
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
--- OUTSIDE RECORDS SUMMARY | 2024-09-19 11:04 | EXTERNAL MEDICAL SUMMARY RPT | Continuity of Care Document ---
Author Organization [place] Address [address] [place] [id number] Phone Problems date description facility 2024-06-23 11:24 Anemia[facility] unspecified [facility] 2024-06-23 11:24 Hypomagnesemia [facility] 2024-06-23 11:24 Gout, unspecified [facility] 2024-06-23 11:24 Palpitations [facility] 2024-06-30 08:05 Anemia, unspecified [facility] 2024-06-30 08:05 Hypomagnesemia [facility] 2024-06-30 08:05 Gout, unspecified [facility] 2024-06-30 08:05 Palpitations [facility] 2024-06-30 09:45 Anemia, unspecified [facility] 2024-06-30 09:45 Hypomagnesemia [facility] 2024-06-30 09:45 Gout, unspecified [facility] 2024-06-30 09:45 Palpitations [facility] 2024-06-30 10:51 Anemia, unspecified [facility] 2024-06-30 10:51 Hypomagnesemia [facility] 2024-06-30 10:51 Gout, unspecified [facility] 2024-06-30 10:51 Palpitations [facility] 2024-06-30 10:54 Anemia, unspecified [facility] 2024-06-30 10:54 Hypomagnesemia [facility] 2024-06-30 10:54 Gout, unspecified [facility] 2024-06-30 10:54 Palpitations [facility] 2024-06-30 10:56 Anemia, unspecified [facility] 2024-06-30 10:56 [facility] 2024-06-30 10:56 Gout, unspecified [facility] 2024-06-30 10:56 [facility]ations [facility] 2024-06-30 10:58 [facility]emia, unspecified [facility] 2024-06-30 10:58 [facility]esemia [facility] 2024-06-30 10:58 Gout, unspecified [facility] 2024-06-30 10:58 [facility]ations [facility] 2024-06-30 11:09 Anemia, unspecified [facility] 2024-06-30 11:09 [facility]esemia [facility] 2024-06-30 11:09 Gout, unspecified [facility] 2024-06-30 11:09 [facility]ations [facility] 2024-06-30 11:11 Anemia, unspecified [facility] 2024-06-30 11:11 Hypomagnesemia [facility] 2024-06-30 11:11 Gout, unspecified [facility]30 11:11 [facility]ations [facility] 2024-06-30 11:14 Anemia, unspecified [facility] 2024-06-30 11:14 [facility]omagnesemia [facility] 2024-06-30 11:14 Gout, unspecified [facility] 2024-06[facility]30 11:14 [facility]ations [facility] 2024-06-30 11:18 Anemia, unspecified [facility] 2024-06-30 11:18 [facility]omagnesemia [facility] 2024-06-30 11:18 Gout, unspecified [facility] 2024-06-30 11:18 [facility] 2024-07-07 10:46 Anemia, unspecified [facility] 2024-07-07 10:46 [facility]esemia [facility] 2024-07-07 10:46 Gout, unspecified [facility] 2024-07-07 10:46 [facility]ations [facility] 2024-07-07 11:21 Anemia, unspecified [facility] 2024-07-07 11:21 [facility]emia [facility] 2024-07-07 11:21 Gout, unspecified [facility] 2024-07-07 11:21 Palpitations [facility] 2024-07-07 11:57 Anemia, unspecified [facility] 2024-07-07 11:57 [facility]omagnesemia [facility] 2024-07-07 11:57 Gout, unspecified [facility] 2024-07-07 11:57 Palpitations [facility] 2024-07-12 10:33 Anemia, unspecified [facility] 2024-07-12 10:33 Type 2 diabetes mellitus withou t complications [facility] 2024-07-12 10:33 [facility]omagnesemia [facility] 2024-07-12 10:33 Diverticulosis of la rge intestine without perforation or abscess without bleeding [facility] 2024-07-12 10:33 Gout, unspecified [facility] 2024-07-12 10:33 [facility]pitations [facility] 2024-07-14 09:33 Anemia, unspecified [facility] 2024-07-14 09:33 Type 2 diabetes mellitus withou t complications [facility] 2024-07-14 09:33 [facility]omagnesemia [facility] 2024-07-14 09:33 Diverticulosis of la rge intestine without perforation or abscess without bleeding [facility] 2024-07-14 09:33 Gout, unspecified [facility] 2024-07-14 09:33 Palpitations [facility] 2024-07-14 11:04 Anemia, unspecified [facility] 2024-07-14 11:04 Type 2 diabetes mellitus withou t complications [facility] 2024-07-14 11:04 [facility]omagnesemia [facility] 2024-07-14 11:04 Diverticulosis of la rge intestine without perforation or abscess without bleeding [facility] 2024-07-14 11:04 Gout, unspecified [facility] 2024-07-14 11:04 Palpitations [facility] 2024-07-19 11:01 Anemia, unspecified [facility] 2024-07-19 11:01 Type 2 diabetes mellitus withou t complications [facility] 2024-07-19 11:01 Hypomagnesemia [facility] 2024-07-19 11:01 Diverticulosis of la rge intestine without perforation or abscess without bleeding [facility] 2024-07-19 11:01 Gout, unspecified [facility] 2024-07-19 11:01 Palpitations [facility] 2024-07-21 16:03 Anemia, unspecified [facility] 2024-07-21 16:03 Hypomagnesemia [facility] 2024-07-21 16:03 Gout, unspecified [facility] 2024-07-21 16:03 Palpitations [facility] 2024-07-21 16:04 Anemia, unspecified [facility] 2024-07-21 16:04 Hypomagnesemia [facility] 2024-07-21 16:04 Gout, unspecified [facility] 2024-07-21 16:04 Palpitations [facility] 2024-07-25 06:05 Hypomagnesemia [facility] 2024-07-28 09:14 Hypomagnesemia [facility] 2024-07-28 11:46 Hypomagnesemia [facility] 2024-07-28 13:44 Anemia, unspecified [facility] 2024-07-28 13:44 Hypomagnesemia [facility] 2024-07-28 13:44 Gout, unspecified [facility] 2024-07-28 13:45 Anemia, unspecified [facility] 2024-07-28 13:45 Hypomagnesemia [facility] 2024-07-28 13:45 Gout, unspecified [facility] 2024-07-28 13:46 Anemia, unspecified [facility] 2024-07-28 13:46 Hypomagnesemia [facility] 2024-07-28 13:46 Gout, unspecified [facility] 2024-07-28 13:48 Anemia, unspecified [facility] 2024-07-28 13:48 Hypomagnesemia [facility] 2024-07-28 13:48 Gout, unspecified [facility] 2024-08-02 11:00 Nicotine dependence, unspecifie d, uncomplicated [facility] 2024-08-02 11:00 [facility] 2024-08-02 11:00 Pneumonia, unspecified organism [facility] 2024-08-02 11:00 Simple chronic bronchitis [facility] 2024-08-02 11:00 Chronic obstructive pulmonary d isease, unspecified [facility] 2024-08-02 11:00 Gout, unspecified [facility] 2024-08-02 11:00 Encounter for palliative care [facility] 2024-08-03 15:52 Mood disorder due to known physiological condition with depressive features [facility] 2024-08-03 15:52 Nicotine dependence, unspecifie d, uncomplicated [facility] 2024-08-03 15:52 Anxiety disorder, unspecified [facility] 2024-08-04 08:07 Anemia, unspecified [facility] 2024-08-04 08:07 Hypomagnesemia [facility] 2024-08-04 08:07 Gout, unspecified [facility] 2024-08-04 11:21 Anemia, unspecified [facility] 2024-08-04 11:21 Hypomagnesemia [facility] 2024-08-04 11:21 Gout, unspecified [facility] 2024-08-04 11:35 Anemia, unspecified [facility] 2024-08-04 11:35 Hypomagnesemia [facility] 2024-08-04 11:35 Gout, unspecified [facility] 2024-08-11 07:37 Unspecified abdominal pain [facility] 2024-08-11 08:40 Anemia, unspecified [facility] 2024-08-11 08:40 Hypomagnesemia [facility] 2024-08-11 08:40 Gout, unspecified [facility] 2024-08-11 11:16 Anemia, unspecified [facility] 2024-08-11 11:16 Hypomagnesemia [facility] 2024-08-11 11:16 Gout, unspecified [facility] 2024-08-16 14:19 Unspecified abdominal pain [facility] 2024-08-16 14:25 Unspecified abdominal pain [facility] 2024-08-18 11:09 Anemia, unspecified [facility] 2024-08-18 11:09 Hypomagnesemia [facility] 2024-08-18 11:09 Gout, unspecified [facility] 2024-08-18 11:17 Type 2 diabetes reta itus with unspecified complications [facility] 2024-08-18 11:17 Hyperlipidemia, unspecified i [facility] 2024-08-18 11:17 Hypomagnesemia [facility] 2024-08-18 11:17 Other specified diseases of [facility] 2024-08-18 11:17 Unspecified abdominal pain [facility] 2024-08-18 11:17 [facility]24-08-18 15:13 Unspecified abdominal pain [facility] 2024-08-19 00:02 Unspecified abdominal pain [facility] 2024-08-25 09:47 Anemia, unspecified [facility] 2024-08-25 09:47 Hypomagnesemia [facility] 2024-08-25 09:47 Other specified diseases of [facility] 2024-08-25 09:47 Gout, unspecified [facility] 2024-08-25 11:09 Anemia, unspecified [facility] 2024-08-25 11:09 [facility] 2024-08-25 11:09 Other specified diseases of [facility] 2024-08-25 11:09 [facility]out, unspecified [facility] 2024-08-25 11:12 Anemia, unspecified [facility] 2024-08-25 11:12 Hypomagnesemia [facility] 2024-08-25 11:12 Other specified diseases of [facility]24-08-25 11:12 Gout[facility] unspecified [facility] 2024-08-25 14:06 Anemia[facility] unspecified [facility] 2024-08-25 14:06 [facility]omagnesemia [facility] 2024-08-25 14:06 Other specified diseases of [facility] 2024-08-25 14:06 Gout, unspecified [facility] 2024-08-25 14:07 Anemia, unspecified [facility] 2024-08-25 14:07 Hypomagnesemia [facility] 2024-08-25 14:07 Other specified diseases of margarita er [facility] 2024-08-25 14:07 Gout, unspecified [facility] 2024-08-25 14:08 Anemia, unspecified [facility] 2024-08-25 14:08 Hypomagnesemia [facility] 2024-08-25 14:08 Other specified diseases of [facility] 2024-08-25 14:08 Gout, unspecified [facility] 2024-08-26 05:08 Ventral hernia without obstruct ion or gangrene [facility] 2024-08-26 05:08 Unspecified abdominal pain [facility] [employer] 2024-08-26 05:08 Personal history of other diseases of the digestive system [facility] 2024-08-26 05:08 Acquired absence of both cervix and uterus [facility] 2024-08-26 05:08 Other specified postprocedural states [facility] 2024-08-26 13:13 Ventral hernia without obstruct ion or gangrene [facility] 2024-08-26 13:13 Unspecified abdominal pain [facility] [employer] 2024-08-26 13:13 Personal history of other diseases of the digestive system [facility] 2024-08-26 13:13 Acquired absence of both cervix and uterus [facility] 2024-08-26 13:13 Other specified postprocedural states [facility] 2024-08-26 13:14 Ventral hernia without obstruct ion or gangrene [facility] 2024-08-26 13:14 Unspecified abdominal pain [facility] [employer] 2024-08-26 13:14 Personal history of other diseases of the digestive system [facility] 2024-08-26 13:14 Acquired absence of both cervix and uterus [facility] 2024-08-26 13:14 Other specified postprocedural states [facility] 2024-08-31 14:38 Anemia, unspecified [facility] 2024-08-31 14:38 Hypomagnesemia [facility] 2024-08-31 14:38 Other specified diseases of marg[facility] er [facility] 2024-08-31 14:38 Gout, unspecified [facility] 2024-09-01 09:36 Anemia, unspecified [facility] 2024-09-01 09:36 Hypomagnesemia [facility] 2024-09-01 09:36 Other specified diseases of [facility] er [facility] 2024-09-01 09:36 Gout, unspecified [facility] 2024-09-01 11:33 Hyperlipidemia, unspecified i [employer] [facility] 2024-09-01 11:33 [facility]omagnesemia [facility] 2024-09-01 11:33 Mood disorder due to known physiological condition with depressive features [facility] 2024-09-01 11:33 Major depressive disorder, recu rrent, moderate [facility] 2024-09-01 11:33 An[facility] disorder, [facility] 11:33 Post-traumatic stress disorder, unspecified [facility] 2024-09-01 11:33 Other specified diseases of marg[facility] er [facility] 2024-09-01 11:33 Unspecified abdominal pain [facility] [employer] [employer] 2024-09-01 11:36 Type 2 diabetes reta itus with unspecified complications [facility] 2024-09-01 11:36 Hyperlipidemia, unspecified [facility] 2024-09-01 11:36 Hypomagnesemia [facility] 2024-09-01 11:36 Other specified diseases of margarita er [employer] [facility] 2024-09-01 11:36 Unspecified abdominal pain david [facility] 2024-09-01 11:36 Encounter for palliative care [employer] 2024-09-01 11:42 Hyperlipidemia, unspecified [facility] 2024-09-01 11:42 Hypomagnesemia [facility] 2024-09-01 11:42 Mood disorder due to known physiological condition with depressive features [facility] 2024-09-01 11:42 Major depressive disorder, recu rrent, moderate [facility] 2024-09-01 11:42 Anxiety disorder, unspecified [employer] 2024-09-01 11:42 Post-traumatic stress disorder, unspecified [facility] 2024-09-01 11:42 Other specified diseases of marg[facility] er [facility] 2024-09-01 11:42 Unspecified abdominal pain [facility] 2024-09-01 12:27 Anemia, unspecified [facility] 2024-09-01 12:27 Hypomagnesemia [facility] 2024-09-01 12:27 Other specified diseases of margarita er [facility] 2024-09-01 12:27 Gout, unspecified [facility] 2024-09-03 13:00 Ventral hernia without obstruct ion or gangrene [facility] 2024-09-03 13:00 Unspecified abdominal pain dav[facility] [employer] 2024-09-03 13:00 Personal history of other diseases of the digestive system [facility] 2024-09-03 13:00 Acquired absence of both cervix and uterus [facility] 2024-09-03 13:00 Other specified postprocedural states [facility] 2024-09-04 00:01 Ventral hernia without obstruct ion or gangrene [facility] 2024-09-04 00:01 Unspecified abdominal pain david [facility] 2024-09-04 00:01 Personal history of other diseases of the digestive system [facility] 2024-09-04 00:01 Acquired absence of both cervix and uterus [facility] 2024-09-04 00:01 Other specified postprocedural states [facility] 2024-09-05 06:43 Unspecified abnormal finding in specimens from female genital organs [facility] 2024-09-05 06:43 Acquired absence of both cervix and uterus [facility] 2024-09-05 11:43 Unspecified abnormal finding in specimens from female genital organs [facility] 2024-09-05 11:43 Acquired absence of both cervix and uterus [facility] 2024-09-05 11:47 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, u nspecified [facility] 2024-09-05 11:47 Unspecified abnormal finding in specimens from female genital organs [facility] 2024-09-05 11:47 Acquired absence of both cervix and uterus [facility] 2024-09-06 08:36 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, u nspecified [facility] 2024-09-07 00:02 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, u nspecified [facility] 2024-09-07 10:33 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, u nspecified [facility] 2024-09-08 09:34 Anemia, unspecified [facility] 2024-09-08 09:34 Hypomagnesemia [facility] 2024-09-08 09:34 Other specified diseases of [facility] 2024-09-08 09:34 [facility], unspecified [facility] 2024-09-08 11:56 Anemia, unspecified [facility] 2024-09-08 11:56 Hypomagnesemia [facility] 2024-09-08 11:56 Other specified diseases of [facility] 2024-09-08 11:56 [facility]out, unspecified [facility] 2024-09-16 07:46 Anemia, unspecified [facility] 2024-09-16 07:46 Hypomagnesemia [facility] 2024-09-16 07:46 Other specified diseases of [facility] 2024-09-16 07:46 [facility]out, unspecified [facility] 2024-09-16 11:02 Anemia, unspecified [facility] 2024-09-16 11:02 Hypomagnesemia [facility] 2024-09-16 11:02 Other specified diseases of marg[facility] 2024-09-16 11:02 Gout, unspecified [facility] 2024-09-16 11:06 Anemia, unspecified [facility] 2024-09-16 11:06 Hypomagnesemia [facility] 2024-09-16 11:06 Other specified diseases of [facility] 2024-09-16 11:06 Gout, unspecified [facility] Results/Labs test date facility value unit notes Result panel 1 NUCLEATED RED BLOOD CELLS AUTO 2024-06-23 11:20 [facility] 0.0 /100wbc (missing) NRBC ABSOLUTE COUNT (AUTO) 2024-06-23 11:20 [facility] 0.00 x10 3/ul (missing) BASOPHILS # (AUTO) 2024-06-23 11:20 [facility] 0.1 10 3/ul (missing) EOSINOPHILS # (AUTO) 2024-06-23 11:20 [facility] 0.2 10 3/ul (missing) BILIRUBIN,TOTAL 2024-06-23 11:20 [facility] 0.3 mg /dl As of December 2022 testing method has changed, this may include reference ranges. CREATININE 2024-06-23 11:20 [facility] 0.7 mg/dl As of December 2022 testing method has changed, this may include reference ranges. MAGNESIUM 2024-06-23 11:20 [facility] 0.8 mg/dl Critical result MG 0.8 mg/dL called to and read back by IRENE Herman/JL/MAC at 23-Jun-2024 11:48 by denise. As of December 2022 testing method has changed, this may include reference ranges. MONOCYTES # (AUTO) 2024-06-23 11:20 [facility] 1.0 10 3/ul (missing) GLOBULIN 2024-06-23 11:20 [facility] 1.9 g/dl (missing) WHITE BLOOD COUNT 2024-06-23 11:20 [facility] 10.8 x10 3/ul (missing) AST ASPARTATE AMINOTRANSFERASE 2024-06-23 11:20 [facility] 11 iu/l As of December 2022 testing method has changed, this may include reference ranges. GLUCOSE 2024-06-23 11:20 [facility] 121 mg/dl As of December 2022 testing method has changed, this may include reference ranges. SODIUM 2024-06-23 11:20 [facility] 135 mmol/l As of December 2022 testing method has changed, this may include reference ranges. HGB - HEMOGLOBIN 2024-06-23 11:20 [facility] 15.2 g /dl (missing) RED CELL DISTRIBUTION WIDTH 2024-06-23 11:20 [facility] 15.9 % (missing) BUN - BLOOD UREA NITROGEN 2024-06-23 11:20 [facility] 18 mg/dl As of Dec testing method has changed, this may include reference ranges. ALBUMIN/GLOBULIN RATIO 2024-06-23 11:20 [facility] 2.2 (missing) (missing) LYMPHOCYTES # (AUTO) 2024-06-23 11:20 [facility] 2.8 10 3/ul (missing) CARBON DIOXIDE - CO2 2024-06-23 11:20 [facility] 29 mmol/l As of December 2022 testing method has changed, this may include reference ranges. MEAN CORPUSCULAR HEMOGLOBIN 2024-06-23 11:20 [facility] 29.7 pg (missing) POTASSIUM 2024-06-23 11:20 [facility] 3.7 mmol/l As of December 2022 testing method has changed, this may include reference ranges. MEAN CORPUSCULAR HGB CONC 2024-06-23 11:20 [facility] 32.1 g/dl (missing) ALBUMIN 2024-06-23 11:20 [facility] 4.1 g/dl As of December 2022 testing method has changed, this may include reference ranges. PLT - PLATELET COUNT 2024-06-23 11:20 [facility] 420 10 3/ul (missing) HCT - HEMATOCRIT 2024-06-23 11:20 [facility] 47.4 % (missing) RED BLOOD COUNT 2024-06-23 11:20 [facility] 5.12 10 6/ul (missing) TOTAL PROTEIN 2024-06-23 11:20 [facility] 6.0 g/dl As of December 2022 testing method has changed, this may include reference ranges. NEUTROPHILS # (AUTO) 2024-06-23 11:20 [facility] 6.7 10 3/ul (missing) ALT ALANINE AMINOTRANSFERASE 2024-06-23 11:20 [facility] 7 iu/l As of December 2022 testing method has changed, this may include reference ranges. ANION GAP 2024-06-23 11:20 [facility] 8.0 (missing ) (missing) CALCIUM 2024-06-23 11:20 [facility] 8.4 mg/dl As of December 2022 testing method has changed, this may include reference ranges. URIC ACID 2024-06-23 11:20 [facility] 8.6 mg/dl As of December 2022 testing method has changed, this may include reference ranges. GFR - MDRD 2024-06-23 11:20 Stitch.es 84 (dea g) Social History date description facility
[2024-09-19] MEDS: IPRATROPIUM/ALBUTEROL 3 ML NEB INH STA ×2 (11:12→12:37)
[2024-09-19 11:14] LABS: BASOPHILS % (AUTO) 0.2 %; EOSINOPHILS % (AUTO) 0.1 %; HCT - HEMATOCRIT 46.6 % (37.0-47.0); HGB - HEMOGLOBIN 15.3 g/dL (12.0-16.0); LYMPHOCYTES # (AUTO) 1.1 10^3/uL (1.5-3.5); MEAN CORPUSCULAR HEMOGLOBIN 29.5 pg (27.0-31.0); MEAN CORPUSCULAR HGB CONC 32.8 g/dL (32.0-36.0); MEAN PLATELET VOLUME 8.9 fL (7.9-10.8); MONOCYTES # (AUTO) 0.7 10^3/uL (0.0-1.0); MONOCYTES % (AUTO) 7.5 %; NEUTROPHILS # (AUTO) 6.9 10^3/uL (1.5-6.6); NEUTROPHILS % (AUTO) 78.9 %; PLT - PLATELET COUNT 319 10^3/uL (130-450); RED BLOOD COUNT 5.18 10^6/uL (4.20-5.40); RED CELL DISTRIBUTION WIDTH 15.6 % (12.0-15.0); WHITE BLOOD COUNT 8.8 x10^3/uL (4.8-10.8)
[2024-09-19 11:17] LABS: VBG BASE EXCESS 5.6 mmol/L (-2 - +2); VBG PCO2 49.3 mmHg (41-51); VBG PH 7.397 (7.31-7.41); VBG TOTAL CO2 32.1 mmol/L (24-29)
--- NOTE | 2024-09-19 11:26 | XRAY Report ---
PROCEDURE: XR Chest 1V INDICATIONS: cough dyspnea TECHNIQUE: One view of the chest was acquired. COMPARISON: 06/06/2024. FINDINGS: Surgical changes and devices: Left chest wall Port-A-Cath. Lungs and pleura: No pleural effusions or pneumothorax. Diffuse interstitial prominence. Mediastinum: Mediastinal contours appear normal. Heart size is normal. Bones and chest wall: No suspicious bony lesions. Overlying soft tissues appear unremarkable. IMPRESSION: Diffuse interstitial prominence concerning for pulmonary edema. Reviewed by: Gilles Castañeda MD on 09/19/2024 11:25 AM PDT Approved by: Gilles Castañeda MD on 09/19/2024 11:25 AM PDT Station ID: [id number]
[2024-09-19 11:29] LABS: ALBUMIN 4.2 g/dL (3.2-5.5); ALBUMIN/GLOBULIN RATIO 1.4 (1.0-2.2); BILIRUBIN,TOTAL 0.3 mg/dL (0.2-1.0); CALCIUM 9.6 mg/dL (8.5-10.3); CREATININE 0.4 mg/dL (0.6-1.3); MAGNESIUM 1.1 mg/dL (1.7-2.3); POTASSIUM 3.7 mmol/L (3.5-4.5); TOTAL PROTEIN 7.1 g/dL (6.4-8.9)
[2024-09-19] MEDS: methylPREDNISolone SUCCINATE 125 MG/2 ML VIAL IVP STA (11:43)
[2024-09-19] MEDS: ONDANSETRON 4 MG/2 ML VIAL IVP STA (11:49)
[2024-09-19] MEDS: MAGNESIUM SULFATE 2 GRAM 2 GM/50 ML BAG IV ONE (11:50)
[2024-09-19 12:07] LABS: B. PARAPERTUSSIS- RESP PCR PAN NOT DETECTED; B. PERTUSSIS- RESP PCR PANEL NOT DETECTED; C. PNEUMONIAE- RESP PCR PANEL NOT DETECTED; CORONAVIRUS 229E-RESP PCR NOT DETECTED; CORONAVIRUS HKU1-RESP PCR NOT DETECTED; CORONAVIRUS NL63-RESP PCR NOT DETECTED; CORONAVIRUS OC43-RESP PCR NOT DETECTED; HUMAN METAPNEUMOVIRUS NOT DETECTED; INFLUENZA A- RESP PCR PANEL NOT DETECTED; INFLUENZA B - RESP PCR PANEL NOT DETECTED; M. PNEUMONIAE- RESP PCR PANEL NOT DETECTED; PARAINFLUENZA VIRUS 1 NOT DETECTED; PARAINFLUENZA VIRUS 2 NOT DETECTED; PARAINFLUENZA VIRUS 4 NOT DETECTED; RHINOVIRUS/ENTEROVIRUS DETECTED; RSV- RESP PCR PANEL NOT DETECTED; SARS-CoV-2 -RESP PCR PANEL NOT DETECTED
[2024-09-19] MEDS: SODIUM CHLORIDE 0.9% 1,000 ML IV STA (13:11)
[2024-09-19] MEDS: levoFLOXacin 750 MG/150 ML 750 MG/150 ML BAG IV STA (13:11)
[2024-09-19] MEDS ORDERED: ACETAMINOPHEN 500 MG TABLET PO PRN (13:44)
[2024-09-19] MEDS: methylPREDNISolone SUCCINATE 40 MG/ML VIAL IVP SCH (15:13)
[2024-09-19] MEDS: levoFLOXacin 750 MG/150 ML 750 MG/150 ML BAG IV SCH (15:13)
[2024-09-19] MEDS: IPRATROPIUM/ALBUTEROL 3 ML NEB INH PRN (15:28)
--- NOTE | 2024-09-19 16:49 | PHARMACY PROGRESS NOTE ---
Best Possible Medication History Admit Date and Time: Home Medications Medication Instructions Recorded Confirmed Type Permanent Disabled Placard 03/17/24 09/05/24 History cetirizine 10 mg tablet 10 mg PO QDAY PRN allergy symptoms 03/17/24 09/19/24 History cholecalciferol (vitamin D3) 125 125 mcg PO QDAY 03/17/24 09/19/24 History mcg (5,000 unit) capsule dicyclomine 10 mg capsule 10 mg PO BID PRN Cramp 03/17/24 09/19/24 History estradiol 0.01% (0.1 mg/gram) 0.25 appful vaginal DAILY 03/17/24 09/19/24 History vaginal cream guaifenesin 1,200 mg tablet, 1,200 mg PO BID 03/17/24 09/19/24 History extended release 12 hr hydrocortisone 2.5 % topical cream 1 applic topical QDAY PRN rash 03/17/24 09/19/24 History melatonin 5 mg tablet 5 mg PO HS PRN sleep 03/17/24 09/19/24 History ondansetron 4 mg disintegrating 4 mg PO TID PRN Nausea / Vomiting 03/17/24 09/19/24 History tablet aspirin 325 mg tablet,delayed 650 mg PO BID PRN osteoarthritis 04/23/24 09/19/24 History release hydrocortisone 2.5 % topical cream 1 applic [place] QDAY PRN hemorrhoids 04/23/24 09/19/24 Rx with perineal applicator #30 grams (Anusol-HC) blood sugar diagnostic (OneTouch #50 ea 05/26/24 09/05/24 Rx Ultra Test strips) epinephrine 0.3 mg/0.3 mL 0.3 mg (0.3 mL) IM Q10M PRN 05/26/24 09/19/24 Rx injection, auto-injector (EpiPen) anaphylaxis #2 ea furosemide 20 mg tablet (Lasix) 20 mg PO QDAY PRN edema 06/17/24 09/19/24 History benzonatate 200 mg capsule 200 mg PO QID PRN cough #60 caps 07/29/24 09/19/24 Rx metoprolol tartrate 25 mg tablet 25 mg PO BID #60 tabs 07/29/24 09/19/24 Rx metoprolol tartrate 50 mg tablet 50 mg PO BID #60 tabs 07/29/24 09/19/24 Rx varenicline tartrate 1 mg tablet 1 mg PO BID #56 tabs 07/29/24 09/19/24 Rx gabapentin 100 mg capsule 100 mg PO BID anxiety and pain 08/03/24 09/19/24 Rx #60 caps diazepam 5 mg tablet 5 mg PO ONCE PRN sedation and 08/31/24 09/19/24 Rx anxiety #3 tabs hydromorphone 1 mg/mL oral liquid 2 - 4 mg (2 - 4 mL) PO Q4-6H PRN 08/31/24 09/19/24 Rx pain #473 mL lorazepam 1 mg tablet 1 mg PO QDAY PRN anxiety #7 tabs 09/05/24 09/19/24 Rx nystatin 100,000 unit/gram topical 1 applic topical BID mycosis #180 09/13/24 09/19/24 Rx powder (Nyamyc) grams albuterol sulfate 90 mcg/actuation 1 inh inhalation QID PRN shortness 09/17/24 09/19/24 Rx aerosol inhaler (Ventolin HFA) of breath or wheezing #8.5 grams inhalational spacing device #1 ea 09/17/24 09/17/24 Rx (BreatheRite MDI Spacer) levofloxacin 750 mg tablet 750 mg PO Q24H #14 tabs 09/17/24 09/19/24 Rx allopurinol 300 mg tablet 300 mg PO QDAY #30 tabs 09/19/24 09/19/24 Rx esomeprazole magnesium 40 mg 40 mg PO DAILY 09/19/24 09/19/24 History capsule,delayed release glimepiride 1 mg tablet 1 mg PO DAILY Diabetes 09/19/24 09/19/24 History prednisone 20 mg tablet 40 mg PO DAILY 09/19/24 09/19/24 History prednisone 5 mg tablet 5 mg PO DAILY 09/19/24 09/19/24 History Processed by: Pharmacy (Medication Reconciliation completed by Boat OperatorSandip) Medications reviewed in ED?: Yes Medication History completed: Yes Patient Interview: Completed (patient was only able to supply information on the prednisone dosing and that she is not using combivent as it is expensive. Said rest of list should be as it was before. used insurance history for rest) Secondary Source(s): Insurance records [facility] Statement: As the person ultimately responsible for medication therapy, providers are able to order a medication from an existing home medication list in [facility] via the "Reconcile Routine" prior to Confirmation of that medication by support representative. Such practice is discouraged except when the physician, in their clinical judgme nt, deems that a medical need exists for a medication without regard to previous use.
[2024-09-19] MEDS: HYDROmorphone 1 MG/ML SYRINGE IVP STA (20:52)
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
--- NOTE | 2024-09-19 22:21 | ED Physician Documentation ---
ED Addendum Addendum Addendum: Patient was boarded in the emergency department until a bed became available on [facility]. Patient was admitted to the hospitalist service This document was made in part using voice recognition software. While efforts are made to proofread this document, sound alike and grammatical errors may occur. Discharge Plan Discharge Patient Disposition: 67 [facility] DC/Xfer Condition: Serious Clinical Impression: COPD exacerbation, Respiratory failure
[2024-09-19] MEDS ORDERED: ACETAMINOPHEN 325 MG TABLET PO PRN (22:26)
[2024-09-19] MEDS ORDERED: ONDANSETRON 4 MG/2 ML VIAL IVP PRN (22:26)
[2024-09-19] MEDS ORDERED: SODIUM CHLORIDE FLUSH 0.9% 10 ML SYRINGE IVP PRN (22:26)
[2024-09-19] MEDS: allopurinoL 100 MG TABLET PO SCH (23:00)
[2024-09-19] MEDS: METOPROLOL TARTRATE 50 MG TABLET PO ONE (23:00)
[2024-09-19] MEDS: CETIRIZINE 10 MG TABLET PO SCH (23:00)
[2024-09-19] MEDS: CHOLECALCIFEROL 5,000 UNIT CAPSULE PO SCH (23:04)
[2024-09-20] MEDS: SODIUM CHLORIDE FLUSH 0.9% 10 ML SYRINGE IVP SCH (00:31)
[2024-09-20] MEDS: BENZONATATE 100 MG CAPSULE PO PRN (00:53)
[2024-09-20] MEDS: HYDROmorphone 2 MG TABLET PO PRN (00:53)
[2024-09-20] MEDS: HYDROmorphone 0.5 MG/0.5 ML SYRINGE IVP PRN (02:20)
[2024-09-20] MEDS: hydrALAZINE INJ 20 MG/ML VIAL IVP ONE (03:54)
[2024-09-20 05:55] LABS: BASOPHILS % (AUTO) 0.1 %; EOSINOPHILS % (AUTO) 0.2 %; HCT - HEMATOCRIT 44.6 % (37.0-47.0); HGB - HEMOGLOBIN 14.3 g/dL (12.0-16.0); LYMPHOCYTES # (AUTO) 0.7 10^3/uL (1.5-3.5); MEAN CORPUSCULAR HEMOGLOBIN 29.3 pg (27.0-31.0); MEAN CORPUSCULAR HGB CONC 32.1 g/dL (32.0-36.0); MEAN CORPUSCULAR VOLUME 91.4 fL (81.0-99.0); MEAN PLATELET VOLUME 9.6 fL (7.9-10.8); MONOCYTES # (AUTO) 0.3 10^3/uL (0.0-1.0); MONOCYTES % (AUTO) 2.2 %; NEUTROPHILS # (AUTO) 10.6 10^3/uL (1.5-6.6); NEUTROPHILS % (AUTO) 90.6 %; PLT - PLATELET COUNT 318 10^3/uL (130-450); RED BLOOD COUNT 4.88 10^6/uL (4.20-5.40); RED CELL DISTRIBUTION WIDTH 15.4 % (12.0-15.0); WHITE BLOOD COUNT 11.7 x10^3/uL (4.8-10.8)
[2024-09-20 06:12] LABS: CALCIUM 9.3 mg/dL (8.5-10.3); CREATININE 0.5 mg/dL (0.6-1.3); MAGNESIUM 1.4 mg/dL (1.7-2.3); POTASSIUM 3.6 mmol/L (3.5-4.5)
[2024-09-20] MEDS ORDERED: MELATONIN 3 MG TABLET PO PRN (07:05)
[2024-09-20] MEDS: PANTOPRAZOLE 40 MG TABLET PO SCH (07:10)
[2024-09-20 08:44] LABS: ESTIMATED AVERAGE GLUCOSE 143 mg/dL (70-100); HEMOGLOBIN A1c% 6.6 % (4.27-6.07)
[2024-09-20] MEDS: MAGNESIUM OXIDE 400 MG TABLET PO SCH (09:26)
[2024-09-20] MEDS: METOPROLOL TARTRATE 50 MG TABLET PO SCH (09:27)
[2024-09-20] MEDS: ENOXAPARIN 40 MG/0.4 ML SYRINGE SUBQ SCH (09:27)
[2024-09-20] MEDS: ONDANSETRON 4 MG/2 ML VIAL IVP PRN (09:27)
[2024-09-20] MEDS: guaiFENesin 600 MG TABLET PO SCH (09:30)
[2024-09-20] MEDS: METOPROLOL TARTRATE 25 MG TABLET PO SCH (09:30)
[2024-09-20] MEDS: GABAPENTIN 100 MG CAPSULE PO SCH (09:40)
[2024-09-20] MEDS: MAGNESIUM SULFATE 2 GRAM 2 GM/50 ML BAG IV ONE (11:50)
[2024-09-20] MEDS: LOSARTAN 50 MG TABLET PO SCH (11:50)
[2024-09-20] MEDS: VARENICLINE 1 MG PO SCH (11:50)
[2024-09-20] MEDS: IPRATROPIUM/ALBUTEROL 3 ML NEB INH PRN (17:55)
--- NOTE | 2024-09-20 19:37 | PROVIDER PROGRESS NOTE ---
Subjective Prog Note Date Prog Note Date: 09/20/24 Subjective Subjective: She is feeling better, but she still feels tired and very short of breath when she gets up to the bathroom. She feels tired and not well rested. nebs are helping. Current Medications Current Medications Current Medications: Current Medications Generic Name Dose Route Start Last Admin Trade Name Freq PRN Reason Stop Dose Admin Acetaminophen 650 mg 09/19/24 22:26 Acetaminophen 325 Mg Tablet PO Q4HR PRN Pain 1 to 4, or Fever Albuterol/Ipratropium 3 ml 09/19/24 22:26 09/20/24 17:55 Ipratropium/Albuterol 3 Ml Neb INH 3 ml Q4HR PRN Administration Wheezing Allopurinol 300 mg 09/19/24 22:26 09/20/24 09:27 Allopurinol 100 Mg Tablet PO 300 mg DAILY RIVERA Administration Benzonatate 200 mg 09/19/24 22:26 09/20/24 07:17 Benzonatate 100 Mg Capsule PO 200 mg QID PRN Administration cough Cetirizine HCl 10 mg 09/19/24 22:26 09/20/24 09:27 Cetirizine 10 Mg Tablet PO 10 mg DAILY RIVERA Administration Cholecalciferol 5,000 unit 09/19/24 22:26 09/20/24 09:30 Cholecalciferol 5,000 Unit Capsule PO Not Given DAILY RIVERA Enoxaparin Sodium 40 mg 09/20/24 09:00 09/20/24 09:27 Enoxaparin 40 Mg/0.4 Ml Syringe SUBQ 40 mg DAILY RIVERA Administration Gabapentin 100 mg 09/20/24 09:00 09/20/24 09:40 Gabapentin 100 Mg Capsule PO 100 mg BID RIVERA Administration Guaifenesin 1,200 mg 09/20/24 09:00 09/20/24 09:30 Guaifenesin 600 Mg Tablet PO 1,200 mg BID RIVERA Administration Hydromorphone HCl 0.25 mg 09/20/24 01:11 09/20/24 11:51 Hydromorphone 0.5 Mg/0.5 Ml Syringe IVP 0.25 mg Q4H PRN Administration Severe Pain (Level 7-10) Levofloxacin 750 mg in 150 mls @ 100 mls/hr 09/19/24 14:00 09/20/24 19:22 Levaquin 750 Mg/150 Ml IV Infused Q24H RIVERA Infusion Losartan Potassium 50 mg 09/20/24 10:00 09/20/24 11:50 Losartan 50 Mg Tablet PO 50 mg DAILY RIVERA Administration Melatonin 4.5 mg 09/20/24 07:05 Melatonin 3 Mg Tablet PO HS PRN sleep Methylprednisolone 40 mg 09/19/24 14:00 09/20/24 14:39 Methylprednisolone Succinate 40 Mg/Ml Vial IVP 40 mg TID RIVERA Administration Metoprolol Tartrate 50 mg 09/20/24 09:00 09/20/24 09:27 Metoprolol Tartrate 50 Mg Tablet PO 50 mg BID RIVERA Administration Metoprolol Tartrate 25 mg 09/20/24 09:00 09/20/24 09:30 Metoprolol Tartrate 25 Mg Tablet PO 25 mg BID RIVERA Administration Ondansetron HCl 4 mg 09/19/24 13:44 09/20/24 09:27 Ondansetron 4 Mg/2 Ml Vial IVP 4 mg Q6HR PRN Administration Nausea / Vomiting Ondansetron HCl 4 mg 09/19/24 22:26 Ondansetron 4 Mg/2 Ml Vial IVP Q6HR PRN Nausea / Vomiting Pantoprazole Sodium 40 mg 09/20/24 07:00 09/20/24 07:10 Pantoprazole 40 Mg Tablet PO 40 mg QDAC RIVERA Administration Patient Own Med( 1 each 09/20/24 09:00 09/20/24 11:50 Varenicline 1mg) PO Not Given DAILY [facility] Sodium Chloride 10 ml 09/19/24 22:26 Sodium Chloride Flush 0.9% 10 Ml Syringe IVP PRN PRN NEEDED PER PROVIDER ORDERS Sodium Chloride 10 ml 09/20/24 01:00 09/20/24 19:22 Sodium Chloride Flush 0.9% 10 Ml Syringe IVP Not Given 0100,0900,1700 [facility] Objective Vital Signs/Intake & Output Reviewed Vital Signs: Yes Vital Signs: Vital Signs x48h Temp Pulse Pulse Resp BP Pulse Ox 09/20/24 17:56 91 20 09/20/24 16:49 36.3 C L 68 24 168/84 H 93 Intake & Output: Intake & Output 09/17/24 09/18/24 09/19/24 09/20/24 23:59 23:59 23:59 23:59 Intake Total 1200 / 1200 1090 / 1090 Balance 1200 / 1200 1090 / 1090 Weight (kg) 101.5 kg Objective General Appearance: positive No acute distress, Alert and Other (dyspneic) Eyes Bilateral: positive Normal inspection ENT: positive ENT inspection nml Neck: positive Nml inspection Respiratory: positive Chest non-tender and Wheezes (throughout) Cardiovascular: positive Regular rate & rhythm Abdomen: positive Other (mild tender, RLQ) Back: positive Nml inspection Skin: positive Color nml Extremities: positive Pedal edema (mild bilateral) Neurologic/Psychiatric: positive Oriented x3 Lab Results 09/20/24 05:00 09/20/24 05:00 Other Labs: Lab Results x24hrs 09/20/24 Range/Units 05:00 WBC 11.7 H (4.8-10.8) x10^3/uL RBC 4.88 (4.20-5.40) 10^6/uL Hgb 14.3 (12.0-16.0) g/dL Hct 44.6 (37.0-47.0) % MCV 91.4 (81.0-99.0) fL MCH 29.3 (27.0-31.0) pg MCHC 32.1 (32.0-36.0) g/dL RDW 15.4 H (12.0-15.0) % Plt Count 318 (130-450) 10^3/uL MPV 9.6 (7.9-10.8) fL Neut # (Auto) 10.6 H (1.5-6.6) 10^3/uL Lymph # (Auto) 0.7 L (1.5-3.5) 10^3/uL [place]ion # (Auto) 0.3 (0.0-1.0) 10^3/uL Eos # (Auto) 0.0 (0.0-0.7) 10^3/uL Baso # (Auto) 0.0 (0.0-0.1) 10^3/uL Absolute Nucleated RBC 0.00 x10^3/uL Nucleated RBC % 0.0 /100WBC Sodium 135 (135-145) mmol/L Potassium 3.6 (3.5-4.5) mmol/L Chloride 96 L (101-111) mmol/L Carbon Dioxide 28 (21-32) mmol/L Anion Gap 11.0 (6-13) BUN 10 (6-20) mg/dL Creatinine 0.5 L (0.6-1.3) mg/dL Estimated GFR (MDRD) 123 (>89) Glucose 271 H (74-104) mg/dL Estimat Average Glucose 143 H (70-100) mg/dL Hemoglobin A1c % 6.6 H (4.27-6.07) % Calcium 9.3 (8.5-10.3) mg/dL Magnesium 1.4 L (1.7-2.3) mg/dL Iron 40 L (50-212) ug/dL TIBC 361 (250-450) ug/dL % Saturation 11 L (20-50) % Transferrin 258 (203-362) mg/dL Vitamin B12 4819 H (180-914) pg/mL Folate 2.7 L (5.90 - >24.8) ng/mL Assessment/Plan Problem List (1) Acute hypoxic respiratory failure: Impression: When she presented to the emergency department her oxygen saturations were 85% on room air. She is not on home oxygen although she does have chronic obstructive pulmonary disease. She does continue to smoke cigarettes she is trying to stop. She is weaned from 2 L via nasal cannula to room air overnight she continues to have significant shortness of breath. She has dyspnea on exertion. I have ordered oxygen desaturation study for the morning. I have started her on Solu-Medrol 40 mg 3 times daily and have continued her Levaquin for community-acquired pneumonia/bronchitis. We are continue with DuoNebs. I have discussed her with her palliative care practitioner FLORENCE French, who would prefer that she spend an additional night here being treated for her hypoxic respiratory failure and COPD I have researched her drug formulary for COPD. She had been prescribed Combivent in the outpatient environment this was going to cost her over $300. It looks like Stiolto Respimat is covered, [facility] to see if it might be affordable for the patient (2) COPD exacerbation: Impression: I am treating her COPD exacerbation with DuoNebs and steroids. She continues to have significant shortness of breath when she gets up and goes about 10 feet to the bathroom. It makes her feel dizzy and tired she is resting most of the day. Will continue steroids overnight in hopes of weaning to oral steroids, passing an oxygen desaturation test tomorrow and transferring to home. If she requires home oxygen will have to have another serious discussion with her regarding smoking cessation. (3) Hypomagnesemia: Impression: She has a history of chronic hypomagnesemia and is unable to take oral medication. I have repleted her magnesium with 2 g of IV mag today. I will recheck her magnesium level in the a.m. (4) Chronic pain syndrome: Impression: [place] I have resumed her home aspirin and Tylenol. At home she also takes Dilaudid as needed pain. She is currently getting 0.25 mg IV every 4 hours as needed. She has gotten 3 doses of this since admission and seems comfortable. She is usually dozing in the chair when I walk in the room. (5) Controlled type 2 diabetes mellitus without complication, without long-term current use of insulin: Impression: Looks like she is on glimepiride at home. I have checked her hemoglobin A1c. Her hemoglobin A1c is 6.6%. This is similar to what it was in June, 6.3%. No need to change her diabetic regimen. (6) Iron deficiency: Impression: Longstanding iron deficiency. She takes multiple supplements at home. It appears that her vitamin B12 level is very high. We will advise her to stop vitamin B12. Her folate is low. Will institute folic acid supplementation. 09/20/24 05:00 Iron 40 L TIBC 361 % Saturation 11 L Transferrin 258 Vitamin B12 4819 H Folate 2.7 L I have spent 52 minutes in the care of this patient today. This includes time [id number], review and ordering of diagnostic imaging and laboratory studies and consultation with other providers. Monitoring the patient's signs symptoms, evaluation of medication effectiveness and patient's response to treatment.
[2024-09-21] MEDS: ASPIRIN EC 325 MG TABLET PO PRN (02:40)
[2024-09-21] MEDS: SENNA 8.6 MG TABLET PO PRN (02:41)
[2024-09-21 07:35] LABS: BASOPHILS % (AUTO) 0.4 %; EOSINOPHILS % (AUTO) 26.6 %; HCT - HEMATOCRIT 51.4 % (37.0-47.0); HGB - HEMOGLOBIN 16.5 g/dL (12.0-16.0); MEAN CORPUSCULAR HEMOGLOBIN 29.1 pg (27.0-31.0); MEAN CORPUSCULAR HGB CONC 32.1 g/dL (32.0-36.0); MEAN CORPUSCULAR VOLUME 90.7 fL (81.0-99.0); MEAN PLATELET VOLUME 8.9 fL (7.9-10.8); MONOCYTES % (AUTO) 3.6 %; NEUTROPHILS % (AUTO) 62.6 %; PLT - PLATELET COUNT 415 10^3/uL (130-450); RED BLOOD COUNT 5.67 10^6/uL (4.20-5.40); RED CELL DISTRIBUTION WIDTH 15.5 % (12.0-15.0)
[2024-09-21 07:41] LABS: ABNORMAL LYMPHS % (MANUAL) 0 %
[2024-09-21 07:47] LABS: CALCIUM 10.2 mg/dL (8.5-10.3); CREATININE 0.5 mg/dL (0.6-1.3); MAGNESIUM 1.8 mg/dL (1.7-2.3)
[2024-09-21] MEDS: FERRIC GLUCONATE 125 MG in SODIUM CHLORIDE 0.9% 100ML 100 ML IV ONE (07:53)
[2024-09-21 08:01] VITALS: TEMP 97.7; O2SAT 92
[2024-09-21 08:02] LABS: BAND NEUTROPHILS % (MANUAL) 3 %; LYMPHOCYTES # (MANUAL) 1.3 10^3/uL (1.5-3.5); LYMPHOCYTES % (MANUAL) 5 %; MONOCYTES # (MANUAL) 0.4 10^3/uL (0.0-1.0); NEUTROPHILS # (MANUAL) 17.3 10^3/uL (1.5-6.6); REACTIVE LYMPHS % (MANUAL) 2 %
[2024-09-21 08:03] LABS: DIFFERENTIAL COMMENT MANUAL DIFFERENTIAL; PLATELET ESTIMATE, MANUAL NORMAL (130-450,000) (NORMAL); RBC MORPHOLOGY (MULTIPLE) 3+ ANISOCYTOSIS (NORMAL)
[2024-09-21] MEDS ORDERED: ESOMEPRAZOLE MAGNESIUM 40 MG PO SCH (09:00)
[2024-09-21] MEDS: FOLIC ACID 1 MG TABLET PO SCH (09:24)
[2024-09-21] MEDS: polyethylene glycoL 3350 17 GM PACKET PO SCH (09:25)
--- NOTE | 2024-09-21 09:43 | XRAY Report ---
PROCEDURE: XR Abdomen 1 V INDICATIONS: abd pain and no bm since 09/16 TECHNIQUE: One view of the abdomen acquired. COMPARISON: CT abdomen and pelvis with contrast 08/18/2024 FINDINGS: Please note that optimal evaluation is limited due to photon starvation artifact from body habitus. Surgical changes and devices: None. Bowel: Bowel gas pattern is normal. Soft tissues: No suspicious abdominal calcifications. Visualized solid organ contours appear normal in size. Diastases recti. Bones: No suspicious bony lesions. IMPRESSION: No radiographic evidence of bowel obstruction. Reviewed by: Aidan Mcdermott MD on 09/21/2024 9:42 AM PDT Approved by: Aidan Mcdermott MD on 09/21/2024 9:42 AM PDT Station ID: [id number]
[2024-09-21] MEDS: ACETAMINOPHEN 325 MG TABLET PO PRN (11:20)
[2024-09-21] MEDS: GLYCERIN ADULT SUPP PR PRN (12:40)
[2024-09-21] MEDS: NICOTINE 21 MG PATCH TOP SCH (13:42)
[2024-09-21] MEDS: BISACODYL 10 MG SUPP PR ONE (14:14)
[2024-09-21] MEDS: LORazepam 2 MG/ML VIAL IVP STA (14:14)
[2024-09-21 16:43] VITALS: BP 160/105
--- NOTE | 2024-09-21 17:36 | Discharge Summary ---
Discharge Summary Admit Date: 09/19/24 Discharge Date: 09/21/24 Discharging Provider: Philip Naranjo NP Primary Care Provider: Sirena Lutz Code Status: Do Not Attempt Resuscitation DIAGNOSES Admission Diagnoses: Acute hypoxic respiratory failure COPD exacerbation Hypomagnesemia Chronic pain Diabetes mellitus without complication Discharge Diagnoses with Status of Each Condition: Acute hypoxic respiratory failureresolved COPD exacerbationbeing sent home on oral steroid Hypomagnesemiarepleted Chronic painchronic Diabetes mellitus without complicationchronic HPI History of Present Illness: 69-year-old female who presents to the emergency department with complaints of shortness of air. She has not been able to maintain oxygen saturations over 85% on room air at home. She therefore presented to the emergency department and has been awaiting admission all day long. She is dependent on oxygen, 2 L via nasal cannula in the emergency department. At home she is on room air. She is a long-term smoker and has been trying to quit smoking currently on Chantix. Currently allowing herself 5 cigarettes a day. However she has been off cigarettes all day long and is doing fine. Denies the need for nicotine patch. Since she has been in the emergency department, she has been given Levaquin and Solu-Medrol. She feels that her breathing is somewhat better but she still is coughing and having a lot of shortness of breath. HOSPITAL COURSE Hospital Course: She was admitted into the hospital and placed on high-dose Solu-Medrol burst. Today, she is ambulatory off of oxygen. She had already been on Levaquin for pneumonia coverage and this was continued while in the hospital. Concern was raised by palliative care over her elevated white blood cell count in the setting of COPD. Procalcitonin was checked and found to be negative. Concern was also raised for constipation. She was given a Dulcolax suppository and encouraged to go home and start an [id number] stool softener regimen. She is being discharged home to finish out a course of steroids and further management will come from palliative care team/PCP ALLERGIES Allergies Allergy/AdvReac Type Severity Reaction Status Date / Time amoxicillin (Amoxicillin) Allergy Severe Hives Verified 09/19/24 11:00 clavulanic acid (From Allergy Severe Hives Verified 09/19/24 11:00 Augmentin) droperidol (From Inapsine) Allergy Severe EPS Verified 09/19/24 11:00 ibuprofen (From Motrin) Allergy Severe Anaphylaxis Verified 09/19/24 11:00 ketorolac Allergy Severe Anaphylaxis Verified 09/19/24 11:00 ketorolac tromethamine * Allergy Severe Anaphylaxis Verified 09/19/24 11:00 (From Toradol) peanut Allergy Severe Anaphylaxis Verified 09/19/24 11:00 potassium clavulanate * Allergy Severe Hives Verified 09/19/24 11:00 (From Augmentin) shellfish derived Allergy Severe Anaphylaxis Verified 09/19/24 11:00 Crvboul-RHW-JqI Reductase Allergy Severe Cramps Verified 09/19/24 11:00 Inhibitor (Ycvqqcp-Bvt-Qcp Reductase Inhibitor) cefadroxil (From Duricef) Allergy Intermediate Hives Verified 09/19/24 11:00 cefazolin Allergy Intermediate Hives Verified 09/19/24 11:00 Cephalosporins Allergy Intermediate Hives Verified 09/19/24 11:00 clindamycin Allergy Intermediate Hives Verified 09/19/24 11:00 cyclobenzaprine Allergy Intermediate Hives/night Verified 09/19/24 11:00 (Cyclobenzaprine) castaneda erythromycin base Allergy Intermediate Hives Verified 09/19/24 11:00 (Erythromycin Base) adalimumab (From Humira) AdvReac Severe Nausea Verified 09/19/24 11:00 adhesive tape AdvReac Severe BLISTERS Verified 09/19/24 11:00 duloxetine AdvReac Severe Suicidal Verified 09/19/24 11:00 etanercept (From Enbrel) AdvReac Severe Nausea/vomm Verified 09/19/24 11:00 iting/cramp s gabapentin AdvReac Severe Gait Verified 09/19/24 11:00 disturbance methotrexate AdvReac Severe N/V/Cramps Verified 09/19/24 11:00 metoclopramide (From Reglan) AdvReac Severe Hallucinati Verified 09/19/24 11:00 ons NSAIDS (Non-Steroidal AdvReac Severe Anaphylaxis Verified 09/19/24 11:00 Anti-Inflamma pregabalin (From Lyrica) AdvReac Severe Rash Verified 09/19/24 11:00 prochlorperazine AdvReac Severe EPS Verified 09/19/24 11:00 prochlorperazine maleate * AdvReac Severe Unknown Verified 09/19/24 11:00 (From Compazine) promethazine (From Phenergan) AdvReac Severe Hallucinati Verified 09/19/24 11:00 ons pseudoephedrine AdvReac Severe Tachycardia Verified 09/19/24 11:00 sumatriptan AdvReac Severe Widened QRS Verified 09/19/24 11:00 contact metal agent AdvReac Intermediate Unknown Verified 09/19/24 11:00 doxycycline AdvReac Intermediate Hives Verified 09/19/24 11:00 latex AdvReac Intermediate Sensitivity Verified 09/19/24 11:00 prochlorperazine edisylate * AdvReac Unknown Unknown Verified 09/19/24 11:00 (From Compazine) morphine AdvReac Unknown Verified 09/19/24 11:00 MEDICATIONS Ambulatory Orders Medication Instructions Recorded Confirmed Permanent Disabled Placard 03/17/24 09/21/24 cetirizine 10 mg tablet 10 mg PO QDAY PRN allergy symptoms 03/17/24 09/21/24 cholecalciferol (vitamin D3) 125 125 mcg PO QDAY 03/17/24 09/21/24 mcg (5,000 unit) capsule dicyclomine 10 mg capsule 10 mg PO BID PRN Cramp 03/17/24 09/21/24 estradiol 0.01% (0.1 mg/gram) 0.25 appful vaginal DAILY 03/17/24 09/21/24 vaginal cream guaifenesin 1,200 mg tablet, 1,200 mg PO BID 03/17/24 09/21/24 extended release 12 hr hydrocortisone 2.5 % topical cream 1 applic topical QDAY PRN rash 03/17/24 09/21/24 melatonin 5 mg tablet 5 mg PO HS PRN sleep 03/17/24 09/21/24 ondansetron 4 mg disintegrating 4 mg PO TID PRN Nausea / Vomiting 03/17/24 09/21/24 tablet aspirin 325 mg tablet,delayed 650 mg PO BID PRN osteoarthritis 04/23/24 09/21/24 release hydrocortisone 2.5 % topical cream [address] QDAY PRN hemorrhoids 04/23/24 09/21/24 with perineal applicator #30 grams (Anusol-HC) blood sugar diagnostic (OneTouch #50 ea 05/26/24 09/21/24 Ultra Test strips) epinephrine 0.3 mg/0.3 mL 0.3 mg (0.3 mL) IM Q10M PRN 05/26/24 09/21/24 injection, auto-injector (EpiPen) anaphylaxis #2 ea furosemide 20 mg tablet (Lasix) 20 mg PO QDAY PRN edema 06/17/24 09/21/24 benzonatate 200 mg capsule 200 mg PO QID PRN cough #60 caps 07/29/24 09/21/24 metoprolol tartrate 25 mg tablet 25 mg PO BID #60 tabs 07/29/24 09/21/24 metoprolol tartrate 50 mg tablet 50 mg PO BID #60 tabs 07/29/24 09/21/24 varenicline tartrate 1 mg tablet 1 mg PO BID #56 tabs 07/29/24 09/21/24 gabapentin 100 mg capsule 100 mg PO BID anxiety and pain 08/03/24 09/21/24 #60 caps diazepam 5 mg tablet 5 mg PO ONCE PRN sedation and 08/31/24 09/21/24 anxiety #3 tabs hydromorphone 1 mg/mL oral liquid 2 - 4 mg (2 - 4 mL) PO Q4-6H PRN 08/31/24 09/21/24 pain #473 mL lorazepam 1 mg tablet 1 mg PO QDAY PRN anxiety #7 tabs 09/05/24 09/21/24 nystatin 100,000 unit/gram topical 1 applic topical BID mycosis #180 09/13/24 09/21/24 powder (Nyamyc) grams albuterol sulfate 90 mcg/actuation 1 inh inhalation QID PRN shortness 09/17/24 09/19/24 aerosol inhaler (Ventolin HFA) of breath or wheezing #8.5 grams inhalational spacing device #1 ea 09/17/24 09/17/24 (BreatheRite MDI Spacer) levofloxacin 750 mg tablet 750 mg PO Q24H #14 tabs 09/17/24 09/19/24 allopurinol 300 mg tablet 300 mg PO QDAY #30 tabs 09/19/24 09/21/24 esomeprazole magnesium 40 mg 40 mg PO DAILY 09/19/24 09/21/24 capsule,delayed release glimepiride 1 mg tablet 1 mg PO DAILY Diabetes 09/19/24 09/21/24 prednisone 5 mg tablet 5 mg PO DAILY 09/19/24 09/21/24 Trintellix 5 mg tablet 5 mg PO QDAY #30 tabs 09/21/24 09/21/24 (vortioxetine) fluticasone 250 mcg-salmeterol 50 1 inh inhalation BID #60 ea 09/21/24 mcg/dose blistr powdr for inhalation folic acid 1 mg tablet 1 mg PO DAILY 30 days #30 tabs 09/21/24 ipratropium 0.5 mg-albuterol 3 mg 3 ml inhalation Q4H PRN shortness 09/21/24 (2.5 mg base)/3 mL nebulization of breath or wheezing #90 mL soln prednisone 20 mg tablet 40 mg (2 x 20 mg) PO DAILY 3 days 09/21/24 #6 tabs PHYSICAL EXAM AT DISCHARGE Vital Signs: Vital Signs x48h Temp Pulse Pulse Resp BP BP Pulse Ox 09/21/24 16:22 73 160/105 H 09/21/24 16:20 36.5 C 70 20 171/106 H 185/106 H 92 09/21/24 13:30 88 General Appearance: positive No acute distress and Alert Eyes Bilateral: positive Normal inspection and PERRL ENT: positive ENT inspection nml Neck: positive Nml inspection Respiratory: positive Chest non-tender and No respiratory distress Cardiovascular: positive Regular rate & rhythm Peripheral Pulses: positive 2+ Abdomen: positive Tenderness Skin: positive Color nml Extremities: positive Non-tender Neurologic/Psychiatric: positive Oriented x3 LABS 09/21/24 07:30 09/21/24 07:30 FOLLOW UP Follow Up: With PCP TIME SPENT Time Spent in Discharge (Minutes): 35 Discharge Plan Discharge Patient Disposition: 01 Home, Self Care Condition: Fair Medically Cleared Date:: 09/21/24 Prescriptions: New folic acid 1 mg Tablet 1 mg PO DAILY 30 Days Qty: 30 0RF prednisone 20 mg tablet 40 mg PO DAILY 3 Days Qty: 6 0RF Continued metoprolol tartrate 50 mg tablet 50 mg PO BID Qty: 60 5RF Rx Instructions: Take with 25 mg tablet = 75 mg. May take additional tablet if HR >150. metoprolol tartrate 25 mg tablet 25 mg PO BID Qty: 60 2RF hydromorphone 1 mg/mL liquid 2 - 4 mg PO Q4-6H PRN (Reason: pain) Qty: 473 0RF diazepam 5 mg tablet 5 mg PO ONCE PRN (Reason: sedation and anxiety) Qty: 3 0RF Rx Instructions: Use 1 hour prior to MRI nystatin [Nyamyc] 100,000 unit/gram powder 1 applic topical BID Qty: 180 5RF Rx Instructions: Use bid prn to skin folds. allopurinol 300 mg tablet 300 mg PO QDAY Qty: 30 5RF dicyclomine 10 mg capsule 10 mg PO BID PRN (Reason: Cramp) Patient Comments: use sparingly due to vision changes esomeprazole magnesium 40 mg capsule,delayed release(DR/EC) 40 mg PO DAILY Patient Comments: TAKE ONE CAPSULE BY MOUTH EVERY EVENING prednisone 5 mg tablet 5 mg PO DAILY glimepiride 1 mg tablet 1 mg PO DAILY estradiol 0.01 % (0.1 mg/gram) cream 0.25 appful vaginal DAILY Patient Comments: Apply pea-sized amount to finger and apply to vaginal opening every day for UTI prevention and incontinence (DME) Permanent Disabled Placard Misc See Rx Instructions .Route Rx Instructions: As directed hydrocortisone 2.5 % cream 1 applic topical QDAY PRN (Reason: rash) hydrocortisone [Anusol-HC] 2.5 % cream with perineal applicator [address] QDAY PRN (Reason: hemorrhoids) Qty: 30 3RF aspirin 325 mg tablet,delayed release (DR/EC) 650 mg PO BID PRN (Reason: osteoarthritis) Rx Instructions: May take additional two doses (two tablets) for total of four doses daily furosemide [Lasix] 20 mg tablet 20 mg PO QDAY PRN (Reason: edema) varenicline tartrate 1 mg tablet 1 mg PO BID Qty: 56 2RF benzonatate 200 mg capsule 200 mg PO QID PRN (Reason: cough) Qty: 60 2RF levofloxacin 750 mg tablet 750 mg PO Q24H Qty: 14 0RF albuterol sulfate [Ventolin HFA] 90 mcg/actuation HFA aerosol inhaler 1 inh inhalation QID PRN (Reason: shortness of breath or wheezing) Qty: 8.5 3RF (DME) BreatheRite MDI Spacer Spacer See Rx Instructions .Route Qty: 1 0RF Rx Instructions: As directed Trintellix 5 mg tablet 5 mg PO QDAY Qty: 30 2RF ondansetron 4 mg tablet,disintegrating 4 mg PO TID PRN (Reason: Nausea / Vomiting) cetirizine 10 mg tablet 10 mg PO QDAY PRN (Reason: allergy symptoms) cholecalciferol (vitamin D3) 125 mcg (5,000 unit) capsule 125 mcg PO QDAY guaifenesin 1,200 mg tablet extended release 12hr 1,200 mg PO BID melatonin 5 mg tablet 5 mg PO HS PRN (Reason: sleep) (DME) OneTouch Ultra Test Strip See Rx Instructions .Route Qty: 50 0RF Rx Instructions: One Touch [place] Test Strips. As directed Use twice a day epinephrine [EpiPen] 0.3 mg/0.3 mL auto-injector 0.3 mg IM Q10M PRN (Reason: anaphylaxis) Qty: 2 3RF Rx Instructions: for 2 doses gabapentin 100 mg capsule 100 mg PO BID Qty: 60 2RF lorazepam 1 mg tablet 1 mg PO QDAY MDD 3 PRN (Reason: anxiety) Qty: 7 0RF Rx Instructions: Take 30-60 mins prior to procedure Discontinued prednisone 20 mg tablet 40 mg PO DAILY Rx Instructions: Drop down to 20 mg after 7 days No Action ipratropium-albuterol 0.5 mg-3 mg(2.5 mg base)/3 mL solution for nebulization 3 ml inhalation Q4H PRN (Reason: shortness of breath or wheezing) Qty: 90 0RF fluticasone propion-salmeterol 250-50 mcg/dose blister with device 1 inh inhalation BID Qty: 60 2RF Activity Restrictions: No Restrictions Diet: Regular Health Concerns: You came into the hospital with an acute exacerbation of COPD. This is resolved after high-dose steroids in the inpatient setting. Today, you are respiratory status has much improved. I am sending you home with another few days of steroids. Please take as directed until the bottle is empty. You also endorsed constipation to me, which you say you have issues with chronically. I would encourage you to start a regimen of [id number] stool softeners and fiber supplements to help with this. I have ordered a Stiolto inhaler for you. I would like for you to take this once a day until directed otherwise by your primary care provider. Please follow-up with your primary care provider for further management Print Language: [place] Citizen Patient Instructions: Chronic Lung Disease Prevent Infec Stand Alone Forms: PCP List Follow-up Care: Florence Ray NP [Primary Care Provider] -
== END 2024-09-21 17:18 | disposition home or self-care (01) | DRG 189 ==
LOC: MS2 10:42 → ED 10:42 → MS2 22:27
PROVIDERS: ADMIT Physician Assistant Medical; ATTEND Physician Assistant Medical

== ENCOUNTER 2025-05-02 20:42 | Inpatient (IN) ==
[2025-05-02] MEDS ORDERED: HYDROmorphone 1 MG/ML CARPUJECT IVP STA (20:44)
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
--- OUTSIDE RECORDS SUMMARY | 2025-05-02 21:09 | EXTERNAL MEDICAL SUMMARY RPT | Continuity of Care Document ---
Author Organization [facility] Address [address] [address] Phone Problems date description facility 2025-01-26 11:44 Mood disorder due to known physiological condition with depressive features [facility] 2025-01-26 11:44 Major depressive disorder, recu rrent, moderate [facility] 2025-01-26 11:44 Anxiety disorder, unspecified [facility] [employer] [facility] 2025-01-26 11:44 Post-traumatic stress disorder, unspecified [facility] 2025-01-26 11:45 Mood disorder due to known physiological condition with depressive features [facility] 2025-01-26 11:45 Major depressive disorder, recu rrent, moderate [facility] 2025-01-26 11:45 Anxiety disorder, unspecified [facility] [employer] 2025-01-26 11:45 Post-traumatic stress disorder, unspecified [facility] 2025-02-03 11:16 Anemia, unspecified [employer] 2025-02-03 11:16 Hypothyroidism, unspecified i [facility] 2025-02-03 11:16 Type 2 diabetes reta itus with unspecified complications [facility] 2025-02-03 11:16 Deficiency of other specified B group vitamins [facility] 2025-02-03 11:16 Hypomagnesemia [facility] 2025-02-03 11:16 Hypocalcemia [facility] 2025-02-03 11:16 Essential (primary) hypertensio n [facility] 2025-02-03 11:16 Chronic diastolic (congestive) heart failure [facility] 2025-02-03 11:16 Lymphedema, not elsewhere class ified [facility] 2025-02-03 11:16 Unspecified disorder of circula tory system [facility] 2025-02-03 11:16 Other specified diseases of margarita er [facility] 2025-02-03 11:16 Pressure ulcer of sacral region , stage 2 [facility] 2025-02-03 11:16 Gout, unspecified [facility] 2025-02-03 11:16 Age-related osteopor osis without current pathological fracture [facility] 2025-02-03 11:16 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 [facility] 2025-02-03 12:37 Hypothyroidism, unspecified i [facility] 2025-02-03 12:37 Type 2 diabetes reta itus with unspecified complications [facility] 2025-02-03 12:37 Deficiency of other specified B group vitamins [facility] 2025-02-03 12:37 Hypomagnesemia [facility] 2025-02-03 12:37 Hypocalcemia [facility] 2025-02-03 12:37 Essential (primary) hypertensio n [facility] 2025-02-03 12:37 Chronic diastolic (congestive) heart failure [facility] 2025-02-03 12:37 Lymphedema, not elsewhere class ified [facility] 2025-02-03 12:37 Unspecified disorder of circula tory system [facility] 2025-02-03 12:37 Other specified diseases of margarita er [facility] 2025-02-03 12:37 Pressure ulcer of sacral region , stage 2 [facility] 2025-02-03 12:37 Gout, unspecified [facility] 2025-02-03 12:37 Age-related osteopor osis without current pathological fracture [facility] 2025-02-03 12:37 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 [facility] 2025-02-03 12:37 Other mechanical com plication of infusion catheter, initial encounter [facility] 2025-02-03 15:34 Nicotine dependence, unspecifie d, in remission [facility] 2025-02-03 15:34 Major depressive disorder, recu rrent, moderate [facility] 2025-02-03 15:34 [facility]specified mononeuropathy [facility] b [facility]ateral lower [facility] 15:34 Chronic pain syndrome [facility] 2025-02-03 15:34 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 [facility] 2025-02-03 15:34 Lymphedema, not elsewhere class ified [facility] 2025-02-03 15:34 Unspecified disorder of circula tory system [facility] 2025-02-03 15:34 Luis's disease, unspecified s ite [facility] 2025-02-03 15:34 Muscle weakness (generalized) [facility]03 15:34 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 [facility]25-[facility]-03 15:34 Other injury of unsp ecified body region, [facility] encounter [facility] 2025-02-07 10:28 Mood disorder due to known physiological condition with depressive features [facility] 2025-02-07 10:28 Major depressive disorder, recu rrent, [facility] 2025-02-07 10:28 Anxiety disorder, unspecified [employer] [facility] 2025-02-07 10:28 Post-traumatic stress disorder, unspecified [facility] 2025-02-07 11:04 Mood disorder due to known physiological condition with depressive features [facility] 2025-02-07 11:04 Major depressive disorder, recu rrent, [facility] 2025-02-07 11:04 Anxiety disorder, unspecified [facility] 2025-02-07 11:04 Post-traumatic stress disorder, unspecified [facility] 2025-02-07 11:05 Mood disorder due to known physiological condition with depressive features [facility] 2025-02-07 11:05 Major depressive disorder, recu rrent, [facility] 2025-02-07 11:05 Anxiety disorder, unspecified [facility] 2025-02-07 11:05 Post-traumatic stress disorder, unspecified [facility] 2025-02-07 11:06 Mood disorder due to known physiological condition with depressive features [facility] 2025-02-07 11:06 Major depressive disorder, recu rrent, moderate [facility] 2025-02-07 11:06 Anxiety disorder, unspecified [facility] [employer] 2025-02-07 11:06 Post-traumatic stress disorder, unspecified [facility] 2025-02-07 11:13 Mood disorder due to known physiological condition with depressive features [facility] 2025-02-07 11:13 Major depressive disorder, recu rrent, moderate [facility] 2025-02-07 11:13 Anxiety disorder, unspecified [facility] [employer] 2025-02-07 11:13 Post-traumatic stress disorder, unspecified [facility] 2025-02-10 09:12 Anemia, unspecified [employer] [facility] 2025-02-10 09:12 Hypothyroidism, unspecified i [facility] 2025-02-10 09:12 Type 2 diabetes reta itus with unspecified complications [facility] 2025-02-10 09:12 Deficiency of other specified B group vitamins [facility] 2025-02-10 09:12 Hypomagnesemia [email or web address] 2025-02-10 09:12 Hypocalcemia [email or web address] 2025-02-10 09:12 Essential (primary) hypertensio n [facility] 2025-02-10 09:12 Chronic diastolic (congestive) heart failure [facility] 2025-02-10 09:12 Lymphedema, not elsewhere class ified [facility] 2025-02-10 09:12 Unspecified disorder of circula tory system [facility] 2025-02-10 09:12 Other specified diseases of margarita er [facility] 2025-02-10 09:12 Pressure ulcer of sacral region , stage 2 [facility] 2025-02-10 09:12 Gout, unspecified 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 [facility] 2025-02-10 09:12 Other mechanical com plication of infusion catheter, initial encounter [facility] 2025-02-10 09:21 Anemia, unspecified [facility] 2025-02-10 09:21 Hypothyroidism, unspecified [facility] 2025-02-10 09:21 Type 2 diabetes reta itus with unspecified complications [email or web address] 2025-02-10 09:21 Deficiency of other specified B group vitamins [facility] 2025-02-10 09:21 Hypomagnesemia [email or web address] 2025-02-10 09:21 Hypocalcemia [email or web address] 2025-02-10 09:21 Essential (primary) hypertensio n [email or web address] 2025-02-10 09:21 Chronic diastolic (congestive) heart failure [facility] 2025-02-10 09:21 Lymphedema, not elsewhere class ified [email or web address] 2025-02-10 09:21 Unspecified disorder of circula tory system [email or web address] 2025-02-10 09:21 Other specified diseases of margarita er [email or web address] 2025-02-10 09:21 Pressure ulcer of sacral region , stage 2 [email or web address] 2025-02-10 09:21 Gout, unspecified [facility] 2025-02-10 09:21 Age-related osteopor osis without current pathological fracture [facility] 2025-02-10 09:21 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 [email or web address] 2025-02-10 09:21 Other mechanical com plication of infusion catheter, initial encounter [email or web address] 2025-02-10 09:28 Anemia, unspecified [facility] 2025-02-10 09:28 Hypothyroidism, unspecified i [facility] 2025-02-10 09:28 Type 2 diabetes reta itus with unspecified complications [email or web address] 2025-02-10 09:28 Deficiency of other specified B group vitamins [email or web address] 2025-02-10 09:28 Hypomagnesemia [email or web address] 2025-02-10 09:28 Hypocalcemia [email or web address] 2025-02-10 09:28 Essential (primary) hypertensio n [facility] 2025-02-10 09:28 Chronic diastolic (congestive) heart failure [email or web address] 2025-02-10 09:28 Lymphedema, not elsewhere class ified [email or web address] 2025-02-10 09:28 Unspecified disorder of circula tory system [facility] 2025-02[facility]10 09:28 Other specified diseases of margarita er [facility] 2025-02-10 09:28 Pressure ulcer of sacral region , stage 2 [facility] 2025-02-10 09:28 Gout, unspecified [facility] 2025-02-10 09:28 Age-related osteopor osis without current pathological fracture [facility] 2025-02-10 09:28 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 [email or web address] 2025-02-10 09:28 Other mechanical com plication of infusion catheter, initial encounter [email or web address] 2025-02-14 09:11 Mood disorder due to known physiological condition with depressive features [email or web address] 2025-02-14 09:11 Major depressive disorder, recu rrent, [email or web address]14 09:11 Anxiety disorder, unspecified [employer] 2025-02-14 09:11 Post-traumatic stress disorder, unspecified [email or web address] 2025-02-14 09:12 Mood disorder due to known physiological condition with depressive features [email or web address] 2025-02-14 09:12 Major depressive disorder, recu rrent, [facility] 2025-02-14 09:12 Anxiety disorder, unspecified [employer] 2025-02-14 09:12 Post-traumatic stress disorder, unspecified [email or web address] 2025-02-14 10:01 Mood disorder due to known physiological condition with depressive features [email or web address] 2025-02-14 10:01 Major depressive disorder, recu rrent, [facility] 2025-02-14 10:01 Anxiety disorder, unspecified [employer] 2025-02-14 10:01 Post-traumatic stress disorder, unspecified [facility] 2025-02-15 08:33 Type 2 diabetes reta itus with unspecified complications [facility] 2025-02-17 11:02 Anemia, unspecified [employer] [facility] 2025-02-17 11:02 Hypothyroidism, unspecified [facility] 2025-02-17 11:02 Type 2 diabetes reta itus with unspecified complications [facility] 2025-02-17 11:02 Deficiency of other specified B group vitamins [facility] 2025-02-17 11:02 Hypomagnesemia [facility] 2025-02-17 11:02 Hypocalcemia [facility] 2025-02-17 11:02 Essential (primary) hypertensio n [facility] 2025-02-17 11:02 Chronic diastolic (congestive) heart failure [facility] 2025-02-17 11:02 Lymphedema, not elsewhere class [email or web address] 2025-[facility]-17 11:02 Unspecified disorder of circula tory system [facility] 2025-02-17 11:02 Other specified diseases of margarita er [facility] 2025-02-17 11:02 Pressure ulcer of sacral region , stage 2 [facility] 2025-02-17 11:02 Gout, unspecified [facility] 2025-02-17 11:02 Age-related osteopor osis without current pathological fracture [email or web address] 2025-02-17 11:02 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 [email or web address] 2025-02-17 11:02 Other mechanical com plication of infusion catheter, initial encounter [facility] 2025-02-17 11:33 Anemia, unspecified [facility] 2025-02-17 11:33 Hypothyroidism, unspecified [facility] [employer] 2025-02-17 11:33 Type 2 diabetes reta itus with unspecified complications [facility] 2025-02-17 11:33 Deficiency of other specified B group vitamins [facility] 2025-02-17 11:33 Hypomagnesemia [facility] 2025-02-17 11:33 [facility]ocalcemia [facility] 2025-02-17 11:33 Essential (primary) hypertensio n [facility] 2025-02-17 11:33 Chronic diastolic (congestive) heart failure [facility] 2025-02-17 11:33 Lymphedema, not elsewhere class [email or web address] 2025-02-17 11:33 Unspecified disorder of circula tory system [facility] 2025-02-17 11:33 Other specified diseases of margarita er [facility] 2025-02-17 11:33 Pressure ulcer of sacral region , stage 2 [facility] 2025-02-17 11:33 Gout, unspecified [facility] 2025-02-17 11:33 Age-related osteopor osis without current pathological fracture [facility] 2025-02-17 11:33 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 [facility] 2025-02-17 11:33 Other mechanical com plication of infusion catheter, initial encounter [facility] 2025-02-24 11:29 Anemia, unspecified [facility] 2025-02-24 11:29 Hypothyroidism, unspecified i [facility] 2025-02-24 11:29 Type 2 diabetes reta itus with unspecified complications [facility] 2025-02-24 11:29 Deficiency of other specified B group vitamins [facility] 2025-02-24 11:29 Hypomagnesemia [facility] 2025-02-24 11:29 Hypocalcemia [facility] 2025-02-24 11:29 Essential (primary) hypertensio n [facility] 2025-02-24 11:29 Chronic diastolic (congestive) heart failure [facility] 2025-02-24 11:29 Lymphedema, not elsewhere class ified [facility] 2025-02-24 11:29 Unspecified disorder of circula tory system [facility] 2025-02-24 11:29 Other specified diseases of margarita er [facility] 2025-02-24 11:29 Pressure ulcer of sacral region , stage 2 [facility] 2025-02-24 11:29 Gout, unspecified [facility] 2025-02-24 11:29 Age-related osteopor osis without current pathological fracture [facility] 2025-02-24 11:29 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 [facility] 2025-02-24 11:29 Other mechanical com plication of infusion catheter, initial encounter [facility] 2025-02-24 11:46 Anemia, unspecified [facility] 2025-02-24 11:46 Hypothyroidism, unspecified i [facility] 2025-02-24 11:46 Type 2 diabetes reta itus with unspecified complications [facility] 2025-02-24 11:46 Deficiency of other specified B group vitamins [email or web address] 2025-02-24 11:46 Hypomagnesemia [email or web address] 2025-02-24 11:46 Hypocalcemia [email or web address] 2025-02-24 11:46 Essential (primary) hypertensio n [email or web address] 2025-02-24 11:46 Chronic diastolic (congestive) heart failure [facility] 2025-02-24 11:46 Lymphedema, not elsewhere class ified [facility] 2025-02-24 11:46 Unspecified disorder of circula tory system [email or web address] 2025-02-24 11:46 Other specified diseases of margarita er [email or web address] 2025-02-24 11:46 Pressure ulcer of sacral region , stage 2 [email or web address] 2025-02-24 11:46 Gout, unspecified [facility] 2025-02-24 11:46 Age-related osteopor osis without current pathological fracture [facility] 2025-02-24 11:46 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 [facility] 2025-02-24 11:46 Other mechanical com plication of infusion catheter, initial encounter [facility] 2025-02-24 13:11 Unspecified mononeuropathy of b ilateral lower limbs [facility] 2025-02-27 09:03 Anemia, unspecified [facility] 2025-02-27 09:03 Hypothyroidism, unspecified i [employer] 2025-02-27 09:03 Type 2 diabetes reta itus with unspecified complications [facility] 2025-02-27 09:03 Deficiency of other specified B group vitamins [email or web address] 2025-02-27 09:03 Hypomagnesemia [email or web address] 2025-02-27 09:03 Hypocalcemia [email or web address] 2025-02-27 09:03 Essential (primary) hypertensio n [facility] 2025-02-27 09:03 Chronic diastolic (congestive) heart failure [facility] 2025-02-27 09:03 Lymphedema, not elsewhere class ified [facility] 2025-02-27 09:03 Unspecified disorder of circula tory system [facility] 2025-02-27 09:03 Other specified diseases of margarita er [facility] 2025-02-27 09:03 Pressure ulcer of sacral region , stage 2 [facility] 2025-02-27 09:03 Gout, unspecified [facility] 2025-02-27 09:03 Age-related osteopor osis without current pathological fracture [email or web address] 2025-02-27 09:03 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 [email or web address] 2025-02-27 09:03 Other mechanical com plication of infusion catheter, initial encounter [facility] 2025-02-27 09:09 Anemia, unspecified [facility] 2025-02-27 09:09 Hypothyroidism, unspecified i [facility] 2025-02-27 09:09 Type 2 diabetes reta itus with unspecified complications [email or web address] 2025-02-27 09:09 Deficiency of other specified B group vitamins [email or web address] 2025-02-27 09:09 Hypomagnesemia [email or web address] 2025-02-27 09:09 Hypocalcemia [email or web address] 2025-02-27 09:09 Essential (primary) hypertensio n [email or web address] 2025-02-27 09:09 Chronic diastolic (congestive) heart failure [email or web address] 2025-02-27 09:09 Lymphedema, not elsewhere class [email or web address]25-[facility]27 09:09 Unspecified disorder of circula tory system [email or web address] 2025-02-27 09:09 Other specified diseases of margarita er [email or web address] 2025-02-27 09:09 Pressure ulcer of sacral region , stage 2 [email or web address] 2025-02-27 09:09 Gout, unspecified [facility] 2025-02-27 09:09 Age-related osteopor osis without current pathological fracture [email or web address] 2025-02-27 09:09 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 [email or web address] 2025-02-27 09:09 Other mechanical com plication of infusion catheter, initial encounter [facility] 2025-02-27 09:12 Anemia, unspecified [facility] 2025-02-27 09:12 Hypothyroidism, unspecified i [facility] 2025-02-27 09:12 Type 2 diabetes reta itus with unspecified complications [facility] 2025-02-27 09:12 Deficiency of other specified B group vitamins [facility] 2025-02-27 09:12 Hypomagnesemia [facility] 2025-02-27 09:12 [facility]ocalcemia [facility] 2025-02-27 09:12 Essential (primary) hypertensio n [facility] 2025-02-27 09:12 Chronic diastolic (congestive) heart failure [facility] 2025-02-27 09:12 Lymphedema, not elsewhere class ified [facility] 2025-02-27 09:12 Unspecified disorder of circula tory system [facility] 2025-02-27 09:12 Other specified diseases of margarita er [facility] 2025-02-27 09:12 Pressure ulcer of sacral region , stage 2 [email or web address] 2025-02-27 09:12 Gout, unspecified [facility] 2025-02-27 09:12 Age-related osteopor osis without current pathological fracture [facility] 2025-02-27 09:12 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 [email or web address] 2025-02-27 09:12 Other mechanical com plication of infusion catheter, initial encounter [facility] 2025-02-27 09:26 Anemia, unspecified [facility] 2025-02-27 09:26 Hypothyroidism, unspecified i [facility] 2025-02-27 09:26 Type 2 diabetes reta itus with unspecified complications [facility] 2025-02-27 09:26 Deficiency of other specified B group vitamins [facility] 2025-02-27 09:26 [facility]omagnesemia [facility] 2025-02-27 09:26 Hypocalcemia [facility] 2025-02-27 09:26 Essential (primary) hypertensio n [email or web address] 2025-02-27 09:26 Chronic diastolic (congestive) heart failure [facility] 2025-02-27 09:26 Lymphedema, not elsewhere class [facility] 2025-02-27 09:26 Unspecified disorder of circula tory system [facility] 2025-02-27 09:26 Other specified diseases of margarita er [facility] 2025-02-27 09:26 Pressure ulcer of sacral region , stage 2 [facility] 2025-02-27 09:26 Gout, unspecified [facility] 2025-02-27 09:26 Age-related osteopor osis without current pathological fracture [facility] 2025-02-27 09:26 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 [facility] 2025-02-27 09:26 Other mechanical com plication of infusion catheter, initial encounter [facility] 2025-02-27 09:30 Anemia, unspecified [facility] 2025-02-27 09:30 Hypothyroidism, unspecified i [facility] 2025-02-27 09:30 Type 2 diabetes reta itus with unspecified complications [email or web address] 2025-02-27 09:30 Deficiency of other specified B group vitamins [facility] 2025-02-27 09:30 [facility]omagnesemia [facility] 2025-02-27 09:30 Hypocalcemia [facility] 2025-02-27 09:30 Essential (primary) hypertensio n [email or web address] 2025-02-27 09:30 Chronic diastolic (congestive) heart failure [facility] 2025-02-27 09:30 Lymphedema, not elsewhere class [email or web address] 2025-02-27 09:30 Unspecified disorder of circula tory system [facility] 2025-02-27 09:30 Other specified diseases of margarita er [employer] [facility] 2025-02-27 09:30 Pressure ulcer of sacral region , stage 2 [facility] 2025-02-27 09:30 Gout, unspecified [facility] 2025-02-27 09:30 Age-related osteopor osis without current pathological fracture [facility] 2025-02-27 09:30 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 [facility] 2025-02-27 09:30 Other mechanical com plication of infusion catheter, initial encounter [facility] 2025-02-27 09:33 Anemia, unspecified [facility] 2025-02-27 09:33 Hypothyroidism, unspecified [facility] 2025-02-27 09:33 Type 2 diabetes reta itus with unspecified complications [facility] 2025-02-27 09:33 Deficiency of other specified B group vitamins [facility] 2025-02-27 09:33 Hypomagnesemia [facility] 2025-02-27 09:33 Hypocalcemia [facility] 2025-02-27 09:33 Essential (primary) hypertensio n [facility] 2025-02-27 09:33 Chronic diastolic (congestive) heart failure [facility] 2025-02-27 09:33 Lymphedema, not elsewhere class ified [email or web address] 2025-02-27 09:33 Unspecified disorder of circula tory system [facility] 2025-02-27 09:33 Other specified diseases of margarita er [email or web address] 2025-02-27 09:33 Pressure ulcer of sacral region , stage 2 [email or web address] 2025-02-27 09:33 Gout, unspecified [facility] 2025-02-27 09:33 Age-related osteopor osis without current pathological fracture [employer] 2025-02-27 09:33 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25-02-28 10:12 Post-traumatic stress disorder, unspecified [facility] 2025-02-28 10:13 Mood disorder due to known physiological condition with depressive features [facility] 2025-02-28 10:13 Major depressive disorder, recu rrent, moderate [facility] 2025-02-28 10:13 Anxiety disorder, unspecified W [employer] 2025-02-28 10:13 Post-traumatic stress disorder, unspecified [facility] 2025-02-28 11:07 Mood disorder due to known physiological condition with depressive features [facility] 2025-02-28 11:07 Major depressive disorder, recu rrent, moderate [facility] 2025-02-28 11:07 Anxiety disorder, unspecified W [employer] [facility] 2025-02-28 11:07 Post-traumatic stress disorder, unspecified [facility] 2025-03-03 11:25 Anemia, unspecified [facility] 2025-03-03 11:25 Hypothyroidism, unspecified i [facility] 2025-03-03 11:25 Type 2 diabetes reta itus with unspecified complications [email or web address] 2025-03-03 11:25 Deficiency of other specified B group vitamins [facility] 2025-03-03 11:25 Hypomagnesemia [email or web address] 2025-03-03 11:25 Hypocalcemia [facility] 2025-03-03 11:25 Essential (primary) hypertensio n [employer] 2025-03-03 11:25 Chronic diastolic (congestive) heart failure [email or web address] 2025-03-03 11:25 Lymphedema, not elsewhere class ified [employer] 2025-03-03 11:25 Unspecified disorder of circula tory system [email or web address] 2025-03-03 11:25 Other specified diseases of margarita er [email or web address] 2025-03-03 11:25 Pressure ulcer of sacral region , stage 2 [facility] 2025-03-03 11:25 Gout, unspecified [employer] 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 [email or web address] 2025-03-03 11:25 Other mechanical com plication of infusion catheter, initial encounter [employer] 2025-03-07 10:10 Mood disorder due to known physiological condition with depressive features [email or web address] 2025-03-07 10:10 Major depressive disorder, recu rrent, moderate [email or web address] 2025-03-07 10:10 Anxiety disorder, unspecified [employer] [facility] 2025-03-07 10:10 Post-traumatic stress disorder, unspecified [facility] 2025-03-07 10:12 Mood disorder due to known physiological condition with depressive features [facility] 2025-03-07 10:12 Major depressive disorder, recu rrent, moderate [employer] [facility] 2025-03-07 10:12 Anxiety disorder, unspecified [employer] [facility] 2025-03-07 10:12 Post-traumatic stress disorder, unspecified [employer] 2025-03-07 11:09 Mood disorder due to known physiological condition with depressive features [email or web address] 2025-03-07 11:09 Major depressive disorder, recu rrent, moderate [email or web address] 2025-03-07 11:09 Anxiety disorder, unspecified [employer] 2025-03-07 11:09 Post-traumatic stress disorder, unspecified [email or web address] 2025-03-10 07:50 Anemia, unspecified [place] [employer] a [facility] 2025-03-10 07:50 Hypothyroidism, unspecified [facility] 2025-03-10 07:50 Type 2 diabetes reta itus with unspecified complications [employer] 2025-03-10 07:50 Deficiency of other specified B group vitamins [employer] 2025-03-10 07:50 Hypomagnesemia [email or web address] 2025-03-10 07:50 Hypocalcemia [facility] 2025-03-10 07:50 Essential (primary) hypertensio n [employer] 2025-03-10 07:50 Chronic diastolic (congestive) heart failure [employer] 2025-03-10 07:50 Lymphedema, not elsewhere class ified [employer] 2025-03-10 07:50 Unspecified disorder of circula tory system [email or web address] 2025-03-10 07:50 Other specified diseases of margarita er [employer] 2025-03-10 07:50 Pressure ulcer of sacral region , stage 2 [employer] 2025-03-10 07:50 Gout, unspecified [facility] 2025-03-10 07:50 Age-related osteopor osis without current pathological fracture [facility] 2025-03-10 07:50 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 [facility] 2025-03-10 07:50 Other mechanical com plication of infusion catheter, initial encounter [facility] 2025-03-10 11:17 Anemia, unspecified [facility] He[facility] 2025-03-10 11:17 Hypothyroidism, unspecified i [facility] 2025-03-10 11:17 Type 2 diabetes reta itus with unspecified complications [email or web address] 2025-03-10 11:17 Deficiency of other specified B group vitamins [facility] 2025-03-10 11:17 Hypomagnesemia [facility] 2025-03-10 11:17 Hypocalcemia [facility] 2025-03-10 11:17 Essential (primary) hypertensio n [facility] 2025-03-10 11:17 Chronic diastolic (congestive) heart failure [facility] 2025-03-10 11:17 Lymphedema, not elsewhere class ified [email or web address] 2025-03-10 11:17 Unspecified disorder of circula tory system [facility] 2025-03-10 11:17 Other specified diseases of margarita er [facility] 2025-03-10 11:17 Pressure ulcer of sacral region , stage 2 [email or web address] 2025-03-10 11:17 Gout, unspecified [facility]-10 11:17 Age-related osteopor osis without current pathological fracture [facility] 2025-03-10 11:17 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 [email or web address] 2025-03-10 11:17 Other mechanical com plication of infusion catheter, initial encounter [facility] 2025-03-10 11:18 Anemia, unspecified [place] He[facility] 2025-03-10 11:18 Hypothyroidism, unspecified i [facility] 2025-03-10 11:18 Type 2 diabetes reta itus with unspecified complications [facility] 2025-03-10 11:18 Deficiency of other specified B group vitamins [facility] 2025-03-10 11:18 Hypomagnesemia [facility] 2025-03-10 11:18 Hypocalcemia [facility] 2025-03-10 11:18 Essential (primary) hypertensio n [facility] 2025-03-10 11:18 Chronic diastolic (congestive) heart failure [facility] 2025-03-10 11:18 Lymphedema, not elsewhere class ified [facility] 2025-03-10 11:18 Unspecified disorder of circula tory system [facility] 2025-03-10 11:18 Other specified diseases of margarita er [email or web address] 2025-03-10 11:18 Pressure ulcer of sacral region , stage 2 [facility] 2025-03-10 11:18 Gout, unspecified [facility] 2025-03-10 11:18 Age-related osteopor osis without current pathological fracture [email or web address] 2025-03-10 11:18 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 [email or web address] 2025-03-10 11:18 Other mechanical com plication of infusion catheter, initial encounter [facility] 2025-03-14 10:07 Mood disorder due to known physiological condition with depressive features [facility] 2025-03-14 10:07 Major depressive disorder, recu rrent, moderate [email or web address] 2025-03-14 10:07 Anxiety disorder, unspecified [employer] 2025-03-14 10:07 Post-traumatic stress disorder, unspecified [email or web address] 2025-03-14 10:08 Mood disorder due to known physiological condition with depressive features [email or web address] 2025-03-14 10:08 Major depressive disorder, recu rrent, moderate [email or web address] 2025-03-14 10:08 Anxiety disorder, unspecified [employer] 2025-03-14 10:08 Post-traumatic stress disorder, unspecified [email or web address] 2025-03-14 11:14 Mood disorder due to known physiological condition with depressive features [facility] 2025-03-14 11:14 Major depressive disorder, recu rrent, moderate [employer] 2025-03-14 11:14 Anxiety disorder, unspecified [facility] 2025-03-14 11:14 Post-traumatic stress disorder, unspecified [facility] 2025-03-17 11:34 Anemia, unspecified idbey Hea [facility] 2025-03-17 11:34 Hypothyroidism, unspecified i [employer] [facility] 2025-03-17 11:34 Type 2 diabetes reta itus with unspecified complications [facility] 2025-03-17 11:34 Deficiency of other specified B group vitamins [facility] 2025-03-17 11:34 Hypomagnesemia [facility] 2025-03-17 11:34 Hypocalcemia [facility] 2025-03-17 11:34 Essential (primary) hypertensio n [facility] 2025-03-17 11:34 Chronic diastolic (congestive) heart failure [facility] 2025-03-17 11:34 Lymphedema, not elsewhere class ified [email or web address] 2025-03-17 11:34 Unspecified disorder of circula tory system [email or web address] 2025-03-17 11:34 Other specified diseases of margarita er [email or web address] 2025-03-17 11:34 Pressure ulcer of sacral region , stage 2 [email or web address] 2025-03-17 11:34 Gout, unspecified [facility] 2025-03-17 11:34 Age-related osteopor osis without current pathological fracture [employer] 2025-03-17 11:34 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 [email or web address] 2025-03-17 11:34 Other mechanical com plication of infusion catheter, initial encounter [email or web address] 2025-03-17 12:05 Anemia, unspecified [place] a [facility] 2025-03-17 12:05 Hypothyroidism, unspecified i [employer] 2025-03-17 12:05 Type 2 diabetes reta itus with unspecified complications [facility] 2025-03-17 12:05 Deficiency of other specified B group vitamins [email or web address] 2025-03-17 12:05 Hypomagnesemia [facility] 2025-03-17 12:05 Hypocalcemia [facility] 2025-03-17 12:05 Essential (primary) hypertensio n [facility] 2025-03-17 12:05 Chronic diastolic (congestive) heart failure [facility] 2025-03-17 12:05 Lymphedema, not elsewhere class ified [facility] 2025-03-17 12:05 Unspecified disorder of circula tory system [facility] 2025-03-17 12:05 Other specified diseases of margarita er [facility] 2025-03-17 12:05 Pressure ulcer of sacral region , stage 2 [facility] 2025-03-17 12:05 Gout, unspecified [facility] 2025-03-17 12:05 Age-related osteopor osis without current pathological fracture [facility] 2025-03-17 12:05 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 [facility] 2025-03-17 12:05 Other mechanical com plication of infusion catheter, initial encounter [facility] 2025-03-17 12:51 Unspecified mononeuropathy of b ilateral lower limbs [facility] 2025-03-17 12:51 Other chronic pain [facility] 2025-03-17 12:51 Chronic pain syndrome [facility] 2025-03-17 12:51 Pain in right knee [facility] 2025-03-17 12:51 Pain in left knee [facility] 2025-03-17 12:51 Deforming dorsopathy, unspecifi ed [facility] 2025-03-17 12:51 Spinal stenosis, lumbosacral re gion [facility] 2025-03-17 12:51 Lumbago with sciatica, right si de [facility] 2025-03-17 12:51 Muscle weakness (generalized) [facility] 2025-03-19 20:23 Unspecified mononeuropathy of b ilateral lower limbs [facility] 2025-03-19 20:23 Other chronic pain [facility] 2025-03-19 20:23 Chronic pain syndrome [facility] 2025-03-19 20:23 Pain in right knee [facility] 2025-03-19 20:23 Pain in left knee [facility] 2025-03-19 20:23 Deforming dorsopathy, unspecifi ed [facility] 2025-03-19 20:23 Spinal stenosis, lumbosacral re gion [facility] 2025-03-19 20:23 Lumbago with sciatica, right si de [facility] 2025-03-19 20:23 Muscle weakness (generalized) [place] [facility] 2025-03-20 16:22 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 [facility] 2025-03-23 16:09 Anemia, unspecified [facility] 2025-03-23 16:09 Hypothyroidism, unspecified i [facility] 2025-03-23 16:09 Type 2 diabetes reta itus with unspecified complications [facility] 2025-03-23 16:09 Deficiency of other specified B group vitamins [facility] 2025-03-23 16:09 Hypomagnesemia [facility] 2025-03-23 16:09 Hypocalcemia [facility] 2025-03-23 16:09 Essential (primary) hypertensio n [facility] 2025-03-23 16:09 Chronic diastolic (congestive) heart failure [facility] 2025-03-23 16:09 Lymphedema, not elsewhere class ified [facility] 2025-03-23 16:09 Unspecified disorder of circula tory system [facility] 2025-03-23 16:09 Other specified diseases of margarita er [facility] 2025-03-23 16:09 Pressure ulcer of sacral region , stage 2 [facility] 2025-03-23 16:09 Gout, unspecified [facility] 2025-03-23 16:09 Age-related osteopor osis without current pathological fracture [facility] 2025-03-23 16:09 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 [facility] 2025-03-23 16:09 Other mechanical com plication of infusion catheter, initial encounter [facility] 2025-03-24 11:15 Anemia, unspecified [employer] a [facility] 2025-03-24 11:15 Hypothyroidism, unspecified i [facility] 2025-03-24 11:15 Type 2 diabetes reta itus with unspecified complications [facility] 2025-03-24 11:15 Deficiency of other specified B group vitamins [facility] 2025-03-24 11:15 Hypomagnesemia [facility] 2025-03-24 11:15 Hypocalcemia [facility] 2025-03-24 11:15 Essential (primary) hypertensio n [employer] [facility] 2025-03-24 11:15 Chronic diastolic (congestive) heart failure [facility] 2025-03-24 11:15 Lymphedema, not elsewhere [email or web address] 2025-[facility]-24 11:15 Unspecified disorder of circula tory system [facility] 2025-03-24 11:15 Other specified diseases of margarita er [facility] 2025-03-24 11:15 Pressure ulcer of sacral region , stage 2 [facility] 2025-03-24 11:15 Gout, unspecified [facility] 2025-03-24 11:15 Age-related osteopor osis without current pathological fracture [email or web address] 2025-03-24 11:15 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 [email or web address] 2025-03-24 11:15 Other mechanical com plication of infusion catheter, initial encounter [email or web address] 2025-03-31 07:43 Anemia, unspecified [facility] [facility] 2025-03-31 07:43 Hypothyroidism, unspecified [facility] [employer] 2025-03-31 07:43 Type 2 diabetes rtea itus with unspecified complications [facility] 2025-03-31 07:43 Deficiency of other specified B group vitamins [facility] 2025-03-31 07:43 Hypomagnesemia [email or web address] 2025-03-31 07:43 Hypocalcemia [facility] 2025-03-31 07:43 Essential (primary) hypertensio n [email or web address] 2025-03-31 07:43 Chronic diastolic (congestive) heart failure [email or web address] 2025-03-31 07:43 Lymphedema, not elsewhere class [facility] [employer] 2025-03-31 07:43 Unspecified disorder of circula tory system [email or web address] 2025-03-31 07:43 Other specified diseases of margarita er [email or web address] 2025-03-31 07:43 Pressure ulcer of sacral region , stage 2 [facility] 2025-03-31 07:43 Gout, unspecified [facility] 2025-03-31 07:43 Age-related osteopor osis without current pathological fracture [facility] 2025-03-31 07:43 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 [facility] 2025-03-31 07:43 Other mechanical com plication of infusion catheter, initial encounter [email or web address] 2025-03-31 11:23 Anemia, unspecified [employer] [facility] [facility] 2025-03-31 11:23 Hypothyroidism, unspecified i [facility] 2025-03-31 11:23 Type 2 diabetes reta itus with unspecified complications [email or web address] 2025-03-31 11:23 Deficiency of other specified B group vitamins [facility] 2025-03-31 11:23 Hypomagnesemia [email or web address] 2025-03-31 11:23 Hypocalcemia [facility] 2025-03-31 11:23 Essential (primary) hypertensio n [email or web address] 2025-03-31 11:23 Chronic diastolic (congestive) heart failure [facility] 2025-03-31 11:23 Lymphedema, not elsewhere class ified [email or web address] 2025-03-31 11:23 Unspecified disorder of circula tory system [email or web address] 2025-03-31 11:23 Other specified diseases of margarita er [email or web address] 2025-03-31 11:23 Pressure ulcer of sacral region , stage 2 [employer] 2025-03-31 11:23 Gout, unspecified [facility] 2025-03-31 11:23 Age-related osteopor osis without current pathological fracture [facility] 2025-03-31 11:23 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 [email or web address] 2025-03-31 11:23 Other mechanical com plication of infusion catheter, initial encounter [employer] 2025-04-04 12:22 Sepsis, unspecified organism Wh [email or web address] 2025-04-04 12:22 Anemia, unspecified estelay Hea [facility] 2025-04-04 12:22 Type 2 diabetes mellitus withou t complications [facility] 2025-04-04 12:22 Iron deficiency [facility] 2025-04-04 12:22 [facility] 2025-04-04 12:22 Chronic pain syndrome [facility] 2025-04-04 12:22 Metabolic encephalopathy [facility] 2025-04-04 12:22 Chronic obstructive pulmonary disease with (acute) exacerbation [facility] 2025-04-04 12:22 Acute respiratory failure with hypoxia [facility] 2025-04-04 12:22 Acute cystitis without hematuri a [facility] 2025-04-04 12:22 Cough, unspecified [facility] 2025-04-04 12:22 Shortness of breath [facility] 2025-04-04 12:22 Wheezing [facility] 2025-04-04 12:22 Lower abdominal pain, unspecifi ed [facility] 2025-04-04 12:22 Nausea with vomiting, unspecifi ed [facility] 2025-04-04 12:22 Fever, unspecified [facility] 2025-04-04 12:22 Weakness [facility] 2025-04-04 12:22 Severe sepsis without septic sh ock [facility] 2025-04-04 12:22 Personal history of other endocrine, nutritional and metabolic disease [facility] 2025-04-12 15:39 Anemia, unspecified yoni Majora [facility] 2025-04-12 15:39 Hypothyroidism, unspecified [facility] 2025-04-12 15:39 Type 2 diabetes reta itus with unspecified complications [facility] 2025-04-12 15:39 Deficiency of other specified B group vitamins [facility] 2025-04-12 15:39 Hypomagnesemia [facility] 2025-04-12 15:39 Hypocalcemia [facility] 2025-04-12 15:39 Essential (primary) hypertensio n [facility] 2025-04-12 15:39 Chronic diastolic (congestive) heart failure [facility] 2025-04-12 15:39 Lymphedema, not elsewhere [email or web address] 2025-[facility]-12 15:39 Unspecified disorder of circula tory system [facility] 2025-04-12 15:39 Other specified diseases of margarita er [facility] 2025-04-12 15:39 Pressure ulcer of sacral region , stage 2 [employer] 2025-04-12 15:39 Gout, unspecified [facility] 2025-04-12 15:39 Age-related osteopor osis without current pathological fracture [facility] 2025-04-12 15:39 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 [email or web address] 2025-04-12 15:39 Other mechanical com plication of infusion catheter, initial encounter [email or web address] 2025-04-13 00:02 Pain in right toe(s) [employer] alth 2025-04-14 11:40 Anemia, unspecified [facility] 2025-04-14 11:40 Hypothyroidism, unspecified i [employer] [facility] 2025-04-14 11:40 Type 2 diabetes reta itus with unspecified complications [facility] 2025-04-14 11:40 Deficiency of other specified B group vitamins [email or web address] 2025-04-14 11:40 Hypomagnesemia [email or web address] 2025-04-14 11:40 Hypocalcemia [email or web address] 2025-04-14 11:40 Essential (primary) hypertensio n [email or web address] 2025-04-14 11:40 Chronic diastolic (congestive) heart failure [email or web address] 2025-04-14 11:40 Lymphedema, not elsewhere class [facility] 2025-04-14 11:40 Unspecified disorder of circula tory system [email or web address] 2025-04-14 11:40 Other specified diseases of margarita er [email or web address] 2025-04-14 11:40 Pressure ulcer of sacral region , stage 2 [email or web address] 2025-04-14 11:40 Gout, unspecified [facility] 2025-04-14 11:40 Age-related osteopor osis without current pathological fracture [email or web address] 2025-04-14 11:40 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 [email or web address] 2025-04-14 11:40 Other mechanical com plication of infusion catheter, initial encounter [email or web address] 2025-04-19 09:30 Anemia, unspecified [facility] 2025-04-19 09:30 Hypothyroidism, unspecified i inZ[facility] 2025-04-19 09:30 Type 2 diabetes reta itus with unspecified complications [email or web address] 2025-04-19 09:30 Deficiency of other specified B group vitamins [email or web address] 2025-04-19 09:30 Hypomagnesemia [email or web address] 2025-04-19 09:30 Hypocalcemia [email or web address] 2025-04-19 09:30 Essential (primary) hypertensio n [email or web address] 2025-04-19 09:30 Chronic diastolic (congestive) heart failure [facility] 2025-04-19 09:30 Lymphedema, not elsewhere class ified [email or web address] 2025-04-19 09:30 Unspecified disorder of circula tory system [facility] 2025-04-19 09:30 Other specified diseases of margarita er [email or web address] 2025-04-19 09:30 Pressure ulcer of sacral region , stage 2 [email or web address] 2025-04-19 09:30 Gout, unspecified [employer] 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 [email or web address] 2025-04-19 09:30 Other mechanical com plication of infusion catheter, initial encounter [email or web address] 2025-04-19 09:35 Anemia, unspecified L[facility]rid[facility] 2025-04-19 09:35 Hypothyroidism, unspecified i [employer] 2025-04-19 09:35 Type 2 diabetes reta itus with unspecified complications [email or web address] 2025-04-19 09:35 Deficiency of other specified B group vitamins [email or web address] 2025-04-19 09:35 Hypomagnesemia [email or web address] 2025-04-19 09:35 Hypocalcemia [email or web address] 2025-04-19 09:35 Essential (primary) hypertensio n [facility] 2025-04-19 09:35 [facility]est[facility] 09:35 Lymphedema, not elsewhere [email or web address] 09:35 Unspecified disorder of circula tory system [email or web address] 2025-04-19 09:35 Other specified diseases of margarita er [email or web address] 2025-04-19 09:35 Pressure ulcer of sacral region , stage 2 [email or web address] 2025-04-19 09:35 Gout, unspecified [facility] 2025-04-19 09:35 Age-related osteopor osis without current pathological fracture [email or web address] 2025-04-19 09:35 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 [email or web address] 2025-04-19 09:35 Other mechanical com plication of infusion catheter, initial encounter [email or web address] 2025-04-19 11:57 Anemia, unspecified rumry [facility] 2025-04-19 11:57 Hypothyroidism, unspecified [facility] [employer] 2025-04-19 11:57 Type 2 diabetes reta itus with unspecified complications [email or web address] 2025-04-19 11:57 Deficiency of other specified B group vitamins [email or web address] 2025-04-19 11:57 Hypomagnesemia [email or web address] 2025-04-19 11:57 Hypocalcemia [email or web address] 2025-04-19 11:57 Essential (primary) hypertensio n [facility] 2025-04-19 11:57 Chronic diastolic (congestive) heart failure [email or web address] 2025-04-19 11:57 Lymphedema, not elsewhere class [facility] 2025-04-19 11:57 Unspecified disorder of circula tory system [email or web address] 2025-04-19 11:57 Other specified diseases of margarita er [email or web address] 2025-04-19 11:57 Pressure ulcer of sacral region , stage 2 [facility] 2025-04-19 11:57 Gout, unspecified id[facility] 2025-04-19 11:57 Age-related osteopor osis without current pathological fracture [facility] 2025-04-19 11:57 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 [email or web address] 2025-04-19 11:57 Other mechanical com plication of infusion catheter, initial encounter [email or web address] 2025-04-19 12:02 Anemia, unspecified Milay [facility] 2025-04-19 12:02 Hypothyroidism, unspecified i inZair [facility] 2025-04-19 12:02 Type 2 diabetes reta itus with unspecified complications [email or web address] 2025-04-19 12:02 Deficiency of other specified B group vitamins [email or web address] 2025-04-19 12:02 Hypomagnesemia [facility] 2025-04-19 12:02 Hypocalcemia [email or web address] 2025-04-19 12:02 Essential (primary) hypertensio n [facility] 2025-04-19 12:02 Chronic diastolic (congestive) heart failure [facility] 2025-04-19 12:02 Lymphedema, not elsewhere class ified [email or web address] 2025-04-19 12:02 Unspecified disorder of circula tory system [facility] 2025-04-19 12:02 Other specified diseases of margarita er [email or web address] 2025-04-19 12:02 Pressure ulcer of sacral region , stage 2 [email or web address] 2025-04-19 12:02 [facility], [facility]25-04-[facility] 12:02 Age-related osteopor osis without current pathological fracture [email or web address] 2025-04-19 12:02 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 a [facility] 2025-04-19 12:05 Hypothyroidism, unspecified Loudri inZair [facility] 2025-04-19 12:05 Type 2 diabetes reta itus with unspecified complications [email or web address] 2025-04-19 12:05 Deficiency of other specified B group vitamins [email or web address] 2025-04-19 12:05 [facility]agnesemia [facility] 2025-04-19 12:05 Hypocalcemia [facility] 2025-04-19 12:05 Essential (primary) hypertensio n [facility] 2025-04-19 12:05 [facility]congestive) [facility] 2025-04-19 12:05 Lymphedema, not elsewhere class [facility] 2025-04-19 12:05 Unspecified disorder of circula tory system [facility] 2025-04-19 12:05 Other specified diseases of margarita er [facility] 2025-04-19 12:05 Pressure ulcer of sacral region , stage 2 [facility] 2025-04-19 12:05 Gout, unspecified [facility] 2025-04-19 12:05 Age-related osteopor osis without current pathological fracture [facility] 2025-04-19 12:05 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 [facility] 2025-04-19 12:05 Other mechanical com plication of infusion catheter, initial encounter [facility] 2025-04-19 13:34 Anemia, unspecified [facility] 2025-04-19 13:34 Hypothyroidism, unspecified i [facility] 2025-04-19 13:34 Type 2 diabetes reta itus with unspecified complications [facility] 2025-04-19 13:34 Deficiency of other specified B group vitamins [facility] 2025-04-19 13:34 [facility]agnesemia [facility] 2025-04-19 13:34 Hypocalcemia [facility] 2025-04-19 13:34 Essential (primary) hypertensio n [facility] 2025-04-19 13:34 Chronic diastolic (congestive) heart failure [facility] 2025-04-19 13:34 Lymphedema, not elsewhere [facility] 2025-04-19 13:34 Unspecified disorder of circula tory system [facility] 2025-04-19 13:34 Other specified diseases of margarita er [facility] 2025-04-19 13:34 Pressure ulcer of sacral region , stage 2 [facility] 2025-04-19 13:34 Gout, unspecified rumreloisa Healt 2025-04-19 13:34 Age-related osteopor osis without current pathological fracture [facility] 2025-04-19 13:34 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 [facility] 2025-04-19 13:34 Other mechanical com plication of infusion catheter, initial encounter [facility] 2025-04-19 13:37 Anemia, unspecified [employer] [facility] 2025-04-19 13:37 Hypothyroidism, unspecified i [facility] 2025-04-19 13:37 Type 2 diabetes reta itus with unspecified complications [facility] 2025-04-19 13:37 Deficiency of other specified B group vitamins [facility] 2025-04-19 13:37 [facility]omagnesemia [facility] 2025-04-19 13:37 Hypocalcemia [facility] 2025-04-19 13:37 Essential (primary) hypertensio n [facility] 2025-04-19 13:37 Chronic diastolic (congestive) heart failure [facility] 2025-04-19 13:37 Lymphedema, not elsewhere class ified [email or web address] 2025-04-19 13:37 Unspecified disorder of circula tory system [facility] 2025-04-19 13:37 Other specified diseases of margarita er [facility] 2025-04-19 13:37 Pressure ulcer of sacral region , stage 2 [email or web address] 2025-04-19 13:37 Gout, unspecified rumry [facility]alt 2025-04-19 13:37 Age-related osteopor osis without current pathological fracture [facility] 2025-04-19 13:37 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 [email or web address] 2025-04-19 13:37 Other mechanical com plication of infusion catheter, initial encounter [facility] 2025-04-19 13:41 Anemia, unspecified idbey He[facility] 2025-04-19 13:41 Hypothyroidism, unspecified i [facility] 2025-04-19 13:41 Type 2 diabetes reta itus with unspecified complications [facility] 2025-04-19 13:41 Deficiency of other specified B group vitamins [facility] 2025-04-19 13:41 Hypomagnesemia [facility] 2025-04-19 13:41 Hypocalcemia [facility] 2025-04-19 13:41 Essential (primary) hypertensio n [facility] 2025-04-19 13:41 Chronic diastolic (congestive) heart failure [facility] 2025-04-19 13:41 Lymphedema, not elsewhere class [facility] 2025-04-19 13:41 Unspecified disorder of circula tory system [facility] 2025-04-19 13:41 Other specified diseases of margarita er [email or web address] 2025-04-19 13:41 Pressure ulcer of sacral region , stage 2 [facility] 2025-04-19 13:41 Gout, unspecified [facility] 2025-04-19 13:41 Age-related osteopor osis without current pathological fracture [facility] 2025-04-19 13:41 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 [facility] 2025-04-19 13:41 Other mechanical com plication of infusion catheter, initial encounter [facility] 2025-04-19 13:44 Anemia, unspecified [facility] 2025-04-19 13:44 Hypothyroidism, unspecified i [facility] 2025-04-19 13:44 Type 2 diabetes reta itus with unspecified complications [facility] 2025-04-19 13:44 Deficiency of other specified B group vitamins [facility] 2025-04-19 13:44 Hypomagnesemia [facility] 2025-04-19 13:44 Hypocalcemia [facility] 2025-04-19 13:44 Essential (primary) hypertensio n [employer] [facility] 2025-04-19 13:44 Chronic diastolic (congestive) heart failure [facility] 2025-04-19 13:44 Lymphedema, not elsewhere class [facility] 2025-04-19 13:44 Unspecified disorder of circula tory system [facility] 2025-04-19 13:44 Other specified diseases of margarita er [employer] [facility] 2025-04-19 13:44 Pressure ulcer of sacral region , stage 2 [facility] 2025-04-19 13:44 Gout, unspecified [facility] 2025-[facility]-19 13:44 Age-related osteopor osis without current pathological fracture [facility] 2025-04-19 13:44 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 [facility] 2025-04-19 13:44 Other mechanical com plication of infusion catheter, initial encounter [facility] 2025-04-21 08:42 Other chronic pain [facility] 2025-04-21 08:42 [facility] in right knee [facility] 2025-04-21 08:42 Pain in left knee [facility] 2025-04-21 08:42 Deforming dorsopathy, unspecifi ed [facility] 2025-04-21 08:42 Lumbago with sciatica, right si de [facility] 2025-04-21 08:42 Muscle weakness (generalized) [place] [facility] 2025-04-21 11:20 Anemia, unspecified [facility] 2025-04-21 11:20 Hypothyroidism, unspecified [facility] 2025-04-21 11:20 Type 2 diabetes reta itus with unspecified complications [facility] 2025-04-21 11:20 Deficiency of other specified B group vitamins [facility] 2025-04-21 11:20 Hypomagnesemia [facility] 2025-04-21 11:20 [facility]ocalcemia [facility] 2025-04-21 11:20 Essential (primary) hypertensio n [facility] 2025-04-21 11:20 Chronic diastolic (congestive) heart failure [facility] 2025-04-21 11:20 Lymphedema, not elsewhere class ified [facility] 2025-04-21 11:20 Unspecified disorder of circula tory system [facility] 2025-04-21 11:20 Other specified diseases of margarita er [facility] 2025-04-21 11:20 Pressure ulcer of sacral region , stage 2 [facility] 2025-04-21 11:20 Gout, unspecified [facility] 2025-04-21 11:20 Age-related osteopor osis without current pathological fracture [facility] 2025-04-21 11:20 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 [facility] 2025-04-21 11:20 Other mechanical com plication of infusion catheter, initial encounter [facility] 2025-04-21 11:55 Pain in right toe(s) [facility] 2025-04-21 12:45 Anemia, unspecified idbey Hea [facility] 2025-04-21 12:45 Hypothyroidism, unspecified i [facility] 2025-04-21 12:45 Type 2 diabetes reta itus with unspecified complications [facility] 2025-04-21 12:45 Deficiency of other specified B group vitamins [facility] 2025-04-21 12:45 Hypomagnesemia [facility] 2025-04-21 12:45 Hypocalcemia [facility] 2025-04-21 12:45 Essential (primary) hypertensio n [facility] 2025-04-21 12:45 Chronic diastolic (congestive) heart failure [facility] 2025-04-21 12:45 Lymphedema, not elsewhere class [facility]ied [facility] 2025-04-21 12:45 Unspecified disorder of circula tory system [facility] 2025-04-21 12:45 Other specified diseases of margarita er [facility] 2025-04-21 12:45 Pressure ulcer of sacral region , stage 2 [facility] 2025-04-21 12:45 Gout, unspecified [facility] 2025-04-21 12:45 Age-related osteopor osis without current pathological fracture [facility] 2025-04-21 12:45 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 [facility] 2025-04-21 12:45 Other mechanical com plication of infusion catheter, initial encounter [facility] 2025-04-21 12:46 Anemia, unspecified davidbey He[facility] 2025-04-21 12:46 Hypothyroidism, unspecified i [facility] 2025-04-21 12:46 Type 2 diabetes reta itus with unspecified complications [facility] 2025-04-21 12:46 Deficiency of other specified B group vitamins [facility] 2025-04-21 12:46 Hypomagnesemia [facility] 2025-04-21 12:46 Hypocalcemia [facility] 2025-04-21 12:46 Essential (primary) hypertensio n [facility] 2025-04-21 12:46 Chronic diastolic (congestive) heart failure [facility] 2025-04-21 12:46 Lymphedema, not elsewhere class [facility] 2025-04-21 12:46 Unspecified disorder of circula tory system [facility] 2025-04-21 12:46 Other specified diseases of margarita er [facility] 2025-04-21 12:46 Pressure ulcer of sacral region , stage 2 [facility] 2025-04-21 12:46 Gout, unspecified [facility] 2025-04-21 12:46 Age-related osteopor osis without current pathological fracture [facility] 2025-04-21 12:46 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 2025-04-27 15:13 Generalized abdominal pain [facility] 2025-04-28 11:22 Anemia, unspecified estelay Hea lth 2025-04-28 11:22 Hypothyroidism, unspecified i [facility] 2025-04-28 11:22 Type 2 diabetes reta itus with unspecified complications [facility] 2025-04-28 11:22 Deficiency of other specified B group vitamins [facility] 2025-04-28 11:22 Hypomagnesemia [facility] 2025-04-28 11:22 Hypocalcemia [facility] 2025-04-28 11:22 Essential (primary) hypertensio n [facility] 2025-04-28 11:22 Chronic diastolic (congestive) heart failure [email or web address] 2025-04-28 11:22 Lymphedema, not elsewhere class ified [facility] 2025-04-28 11:22 Unspecified disorder of circula tory system [email or web address] 2025-04-28 11:22 Other specified diseases of margarita er [email or web address] 2025-04-28 11:22 Pressure ulcer of sacral region , stage 2 [email or web address] 2025-04-28 11:22 Gout, unspecified [facility] 2025-04-28 11:22 Age-related osteopor osis without current pathological fracture [facility] 2025-04-28 11:22 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 [email or web address] 2025-04-28 11:22 Other mechanical com plication of infusion catheter, initial encounter [email or web address] 2025-04-28 11:26 Anemia, unspecified [facility] 2025-04-28 11:26 Hypothyroidism, unspecified i [facility] 2025-04-28 11:26 Type 2 diabetes reta itus with unspecified complications [email or web address] 2025-04-28 11:26 Deficiency of other specified B group vitamins [email or web address] 2025-04-28 11:26 Hypomagnesemia [email or web address] 2025-04-28 11:26 Hypocalcemia [email or web address] 2025-04-28 11:26 Essential (primary) hypertensio n [email or web address] 2025-04-28 11:26 Chronic diastolic (congestive) heart failure [email or web address] 2025-04-28 11:26 Lymphedema, not elsewhere class [email or web address] 2025-[facility]-28 11:26 Unspecified disorder of circula tory system [email or web address] 2025-04-28 11:26 Other specified diseases of margarita er [email or web address] 2025-04-28 11:26 Pressure ulcer of sacral region , stage 2 [email or web address] 2025-04-28 11:26 Gout, unspecified [facility] 2025-04-28 11:26 Age-related osteopor osis without current pathological fracture [email or web address] 2025-04-28 11:26 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 CREATININE 2025-02-03 11:15 [facility] 0.7 mg/dl As of December 2022 testing method has changed, this may include reference ranges. MAGNESIUM 2025-02-03 11:15 [facility] 1.3 mg/dl As of December 2022 testing method has changed, this may include reference ranges. ALBUMIN/GLOBULIN RATIO 2025-02-03 11:15 [facility] 1.5 (missing) (missing) ALT ALANINE AMINOTRANSFERASE 2025-02-03 11:15 [facility] 10 iu/l As of December 2022 testing method has changed, this may include reference ranges. SODIUM 2025-02-03 11:15 [facility] 134 mmol/l No AST ASPARTATE AMINOTRANSFERASE 2025-02-03 11:15 [facility] 15 iu/l As of December 2022 testing method has changed, this may include reference ranges. BUN - BLOOD UREA NITROGEN 2025-02-03 11:15 [facility] 17 mg/dl As of Dec testing method has changed, this may include reference ranges. GLOBULIN 2025-02-03 11:15 [facility] 2.8 g/dl (missing) CARBON DIOXIDE - CO2 2025-02-03 11:15 [facility] 30 mmol/l As of December 2022 testing method has changed, this may include reference ranges. POTASSIUM 2025-02-03 11:15 [facility] 4.0 mmol/l As of December 2022 testing method has changed, this may include reference ranges. ALBUMIN 2025-02-03 11:15 [facility] 4.2 g/dl As of December 2022 testing method has changed, this may include reference ranges. TOTAL PROTEIN 2025-02-03 11:15 [facility] 7.0 g/dl As of December 2022 testing method has changed, this may include reference ranges. ANION GAP 2025-02-03 11:15 [facility] 8.0 (missing ) (missing) GFR - MDRD 2025-02-03 11:15 [facility] 83 (dea soliz) The IDMS-traceable MDRD Study Equation has been validated extensively in and populations between the ages of 18 and 70 with impaired kidney function (eGFR < 60 mL/min/1.73m2) and has shown good performance for patients with all common causes of kidney disease. Although this equation has not been validated for patients older than 70, an MDRD-derived eGFR may still be a useful tool for providers caring for patients older than 70. References: http://www.nkdep. nih.gov/lab-evalu ation/gfr/creatin ine-stand ardization, last updated August 2011. CALCIUM 2025-02-03 11:15 [facility] 9.1 mg/dl As of December 2022 testing method has changed, this may include reference ranges. ALKALINE PHOSPHATASE 2025-02-03 11:15 [facility] 95 iu/l As of December 2022 testing method has changed, this may include reference ranges. GLUCOSE 2025-02-03 11:15 [facility] 95 mg/dl As of December 2022 testing method has changed, this may include reference ranges. CHLORIDE 2025-02-03 11:15 [facility] 96 mmol/l As of December 2022 testing method has changed, this may include reference ranges. Result panel 2 NUCLEATED RED BLOOD CELLS AUTO 2025-02-17 11:30 [facility] 0.0 /100wbc (missing) NRBC ABSOLUTE COUNT (AUTO) 2025-02-17 11:30 [facility] 0.00 x10 3/ul (missing) BASOPHILS # (AUTO) 2025-02-17 11:30 [facility] 0.1 10 3/ul (missing) EOSINOPHILS # (AUTO) 2025-02-17 11:30 [facility] 0.3 10 3/ul (missing) BILIRUBIN,TOTAL 2025-02-17 11:30 [facility] 0.4 mg/dl As of December 2022 testing method has changed, this may include reference ranges. CREATININE 2025-02-17 11:30 [facility] 0.6 mg/dl As of December 2022 testing method has changed, this may include reference ranges. MONOCYTES # (AUTO) 2025-02-17 11:30 [facility] 0.7 10 3/ul (missing) MAGNESIUM 2025-02-17 11:30 [facility] 1.0 mg/dl Critical result MG 1.0 mg/dL called to and read back by LORRAINE Tomlin/JL/MAC at 17-Feb-2025 12:17 by denise. As of December 2022 testing method has changed, this may include reference ranges. ALBUMIN/GLOBULIN RATIO 2025-02-17 11:30 [facility] 1.5 (missing) (missing) LYMPHOCYTES # (AUTO) 2025-02-17 11:30 [facility] 1.6 10 3/ul (missing) AST ASPARTATE AMINOTRANSFERASE 2025-02-17 11:30 [facility] 12 iu/l As of December 2022 testing method has changed, this may include reference ranges. GLUCOSE 2025-02-17 11:30 [facility] 126 mg/dl As of December 2022 testing method has changed, this may include reference ranges. HGB - HEMOGLOBIN 2025-02-17 11:30 [facility] 13.0 g/dl (missing) SODIUM 2025-02-17 11:30 [facility] 136 mmol/l Unknown % IRON SATURATION 2025-02-17 11:30 [facility] 15 % (missing) RED CELL DISTRIBUTION WIDTH 2025-02-17 11:30 [facility] 15.5 % (missing) BUN - BLOOD UREA NITROGEN 2025-02-17 11:30 [facility] 19 mg/dl As of December 2022 testing method has changed, this may include reference ranges. GLOBULIN 2025-02-17 11:30 [facility] 2.8 g/dl (missing) MEAN CORPUSCULAR HEMOGLOBIN 2025-02-17 11:30 [facility] 29.0 pg (missing) POTASSIUM 2025-02-17 11:30 [facility] 3.9 mmol/l As of December 2022 testing method has changed, this may include reference ranges. MEAN CORPUSCULAR HGB CONC 2025-02-17 11:30 [employer] [facility] 31.5 g/dl (missing) CARBON DIOXIDE - CO2 2025-02-17 11:30 [facility] 33 mmol/l As of December 2022 testing method has changed, this may include reference ranges. TRANSFERRIN 2025-02-17 11:30 [facility] 330 mg/dl As of December 2022 testing method has changed, this may include reference ranges. PLT - PLATELET COUNT 2025-02-17 11:30 [facility] 343 10 3/ul (missing) FERRITIN 2025-02-17 11:30 [facility] 37.0 ng/ml (missing) ALBUMIN 2025-02-17 11:30 [facility] 4.2 g/dl As of December 2022 testing method has changed, this may include reference ranges. RED BLOOD COUNT 2025-02-17 11:30 [facility] 4.48 10 6/ul (missing) HCT - HEMATOCRIT 2025-02-17 11:30 [facility] 41.3 % (missing) TOTAL IRON BINDING CAPACITY 2025-02-17 11:30 [facility] 462 ug/dl (missing) NEUTROPHILS # (AUTO) 2025-02-17 11:30 [facility] 6.3 10 3/ul (missing) TOTAL PROTEIN 2025-02-17 11:30 [facility] 7.0 g/dl As of December 2022 testing method has changed, this may include reference ranges. IRON 2025-02-17 11:30 [facility] 71 ug/dl As of December 2022 testing method has changed, this may include reference ranges. ALT ALANINE AMINOTRANSFERASE 2025-02-17 11:30 [facility] 8 iu/l As of December 2022 testing method has changed, this may include reference ranges. ANION GAP 2025-02-17 11:30 [email or web address] 8.0 (missing) (missing) WHITE BLOOD COUNT 2025-02-17 11:30 [facility] 9.0 x10 3/ul (missing) MEAN PLATELET VOLUME 2025-02-17 11:30 [facility] 9.2 fl (missing) CALCIUM 2025-02-17 11:30 [facility] 9.3 mg/dl As of December 2022 testing method has changed, this may include reference ranges. MEAN CORPUSCULAR VOLUME 2025-02-17 11:30 [facility] 92.2 fl (missing) ALKALINE PHOSPHATASE 2025-02-17 11:30 [facility] 94 iu/l As of December 2022 testing method has changed, this may include reference ranges. CHLORIDE 2025-02-17 11:30 [facility] 95 mmol/l As of December 2022 testing method has changed, this may include reference ranges. GFR - MDRD 2025-02-17 11:30 [facility] 99 (missing) The IDMS-traceable MDRD Study Equation has been validated extensively in and populations between the ages of 18 and 70 with impaired kidney function (eGFR < 60 mL/min/1.73m2) and has shown good performance for patients with all common causes of kidney disease. Although this equation has not been validated for patients older than 70, an MDRD-derived eGFR may still be a useful tool for providers caring for patients older than 70. References: http://www.nkdep. nih.gov/lab-evalu ation/gfr/creatin ine-stand ardization, last updated August 2011. Result panel 3 BILIRUBIN,TOTAL 2025-02-24 11:35 [facility] 0.3 mg /dl As of December 2022 testing method has changed, this may include reference ranges. CREATININE 2025-02-24 11:35 [facility] 0.6 mg/dl As of December 2022 testing method has changed, this may include reference ranges. MAGNESIUM 2025-02-24 11:35 [facility] 1.5 mg/dl As of December 2022 testing method has changed, this may include reference ranges. ALBUMIN/GLOBULIN RATIO 2025-02-24 11:35 [facility] 1.6 (missing) (missing) ALKALINE PHOSPHATASE 2025-02-24 11:35 [facility] 101 iu/l As of December 2022 testing method has changed, this may include reference ranges. AST ASPARTATE AMINOTRANSFERASE 2025-02-24 11:35 [facility] 11 iu/l As of December 2022 testing method has changed, this may include reference ranges. GLUCOSE 2025-02-24 11:35 [facility] 125 mg/dl As of December 2022 testing method has changed, this may include reference ranges. SODIUM 2025-02-24 11:35 [facility] 134 mmol/l Unknown BUN - BLOOD UREA NITROGEN 2025-02-24 11:35 [facility] 16 mg/dl As of Dec testing method has changed, this may include reference ranges. GLOBULIN 2025-02-24 11:35 [facility] 2.6 g/dl (missing) CARBON DIOXIDE - CO2 2025-02-24 11:35 [facility] 32 mmol/l As of December 2022 testing method has changed, this may include reference ranges. POTASSIUM 2025-02-24 11:35 [facility] 4.0 mmol/l As of December 2022 testing method has changed, this may include reference ranges. ALBUMIN 2025-02-24 11:35 [facility] 4.2 g/dl As of December 2022 testing method has changed, this may include reference ranges. TOTAL PROTEIN 2025-02-24 11:35 [facility] 6.8 g/dl As of December 2022 testing method has changed, this may include reference ranges. ANION GAP 2025-02-24 11:35 [facility] 7.0 (missing ) (missing) ALT ALANINE AMINOTRANSFERASE 2025-02-24 11:35 [facility] 9 iu/l As of December 2022 testing method has changed, this may include reference ranges. CALCIUM 2025-02-24 11:35 [facility] 9.7 mg/dl As of December 2022 testing method has changed, this may include reference ranges. CHLORIDE 2025-02-24 11:35 [facility] 95 mmol/l As of December 2022 testing method has changed, this may include reference ranges. GFR - MDRD 2025-02-24 11:35 [facility] 99 (missin g) The IDMS-traceable MDRD Study Equation has been validated extensively in and populations between the ages of 18 and 70 with impaired kidney function (eGFR < 60 mL/min/1.73m2) and has shown good performance for patients with all common causes of kidney disease. Although this equation has not been validated for patients older than 70, an MDRD-derived eGFR may still be a useful tool for providers caring for patients older than 70. References: http://www.nkdep. nih.gov/lab-evalu ation/gfr/creatin ine-stand ardization, last updated August 2011. Result panel 4 NUCLEATED RED BLOOD CELLS AUTO 2025-03-03 11:30 [facility] 0.0 /100wbc (missing) NRBC ABSOLUTE COUNT (AUTO) 2025-03-03 11:30 [facility] 0.00 x10 3/ul (missing) BASOPHILS # (AUTO) 2025-03-03 11:30 [facility] 0.1 10 3/ul (missing) EOSINOPHILS # (AUTO) 2025-03-03 11:30 [facility] 0.2 10 3/ul (missing) BILIRUBIN,TOTAL 2025-03-03 11:30 [facility] 0.3 mg/dl As of December 2022 testing method has changed, this may include reference ranges. MONOCYTES # (AUTO) 2025-03-03 11:30 [facility] 0.5 10 3/ul (missing) CREATININE 2025-03-03 11:30 [facility] 0.5 mg/dl As of December 2022 testing method has changed, this may include reference ranges. MAGNESIUM 2025-03-03 11:30 [facility] 1.3 mg/dl As of December 2022 testing method has changed, this may include reference ranges. LYMPHOCYTES # (AUTO) 2025-03-03 11:30 [facility] 1.5 10 3/ul (missing) ALBUMIN/GLOBULIN RATIO 2025-03-03 11:30 [facility] 1.7 (missing) (missing) GLUCOSE 2025-03-03 11:30 [facility] 112 mg/dl As of December 2022 testing method has changed, this may include reference ranges. AST ASPARTATE AMINOTRANSFERASE 2025-03-03 11:30 [facility] 12 iu/l As of December 2022 testing method has changed, this may include reference ranges. GFR - MDRD 2025-03-03 11:30 [facility] 123 (missing) The IDMS-traceable MDRD Study Equation has been validated extensively in and populations between the ages of 18 and 70 with impaired kidney function (eGFR < 60 mL/min/1.73m2) and has shown good performance for patients with all common causes of kidney disease. Although this equation has not been validated for patients older than 70, an MDRD-derived eGFR may still be a useful tool for providers caring for patients older than 70. References: http://www.nkdep. nih.gov/lab-evalu ation/gfr/creatin ine-stand ardization, last updated August 2011. HGB - HEMOGLOBIN 2025-03-03 11:30 [facility] 13.9 g/dl (missing) SODIUM 2025-03-03 11:30 [facility] 138 mmol/l Unknown BUN - BLOOD UREA NITROGEN 2025-03-03 11:30 [facility] 14 mg/dl As of December 2022 testing method has changed, this may include reference ranges. RED CELL DISTRIBUTION WIDTH 2025-03-03 11:30 [facility] 15.4 % (missing) GLOBULIN 2025-03-03 11:30 [facility] 2.5 g/dl (missing) MEAN CORPUSCULAR HEMOGLOBIN 2025-03-03 11:30 [facility] 28.9 pg (missing) POTASSIUM 2025-03-03 11:30 [facility] 3.7 mmol/l As of December 2022 testing method has changed, this may include reference ranges. MEAN CORPUSCULAR HGB CONC 2025-03-03 11:30 [facility] 32.0 g/dl (missing) PLT - PLATELET COUNT 2025-03-03 11:30 [facility] 327 10 3/ul (missing) CARBON DIOXIDE - CO2 2025-03-03 11:30 [facility] 34 mmol/l As of December 2022 testing method has changed, this may include reference ranges. ALBUMIN 2025-03-03 11:30 [facility] 4.2 g/dl As of December 2022 testing method has changed, this may include reference ranges. NEUTROPHILS # (AUTO) 2025-03-03 11:30 [facility] 4.5 10 3/ul (missing) RED BLOOD COUNT 2025-03-03 11:30 [facility] 4.81 10 6/ul (missing) HCT - HEMATOCRIT 2025-03-03 11:30 [facility] 43.5 % (missing) TOTAL PROTEIN 2025-03-03 11:30 [facility] 6.7 g/dl As of December 2022 testing method has changed, this may include reference ranges. WHITE BLOOD COUNT 2025-03-03 11:30 [facility] 6.8 x10 3/ul (missing) ANION GAP 2025-03-03 11:30 [facility] 8.0 (missing) (missing) ALKALINE PHOSPHATASE 2025-03-03 11:30 [facility] 86 iu/l As of December 2022 testing method has changed, this may include reference ranges. ALT ALANINE AMINOTRANSFERASE 2025-03-03 11:30 [facility] 9 iu/l As of December 2022 testing method has changed, this may include reference ranges. MEAN PLATELET VOLUME 2025-03-03 11:30 [facility] 9.2 fl (missing) CALCIUM 2025-03-03 11:30 [facility] 9.6 mg/dl As of December 2022 testing method has changed, this may include reference ranges. MEAN CORPUSCULAR VOLUME 2025-03-03 11:30 [facility] 90.4 fl (missing) CHLORIDE 2025-03-03 11:30 [facility] 96 mmol/l As of December 2022 testing method has changed, this may include reference ranges. Result panel 5 BILIRUBIN,TOTAL 2025-03-10 11:27 [facility] 0.2 mg /dl As of December 2022 testing method has changed, this may include reference ranges. CREATININE 2025-03-10 11:27 [facility] 0.5 mg/dl As of December 2022 testing method has changed, this may include reference ranges. MAGNESIUM 2025-03-10 11:27 [facility] 1.3 mg/dl As of December 2022 testing method has changed, this may include reference ranges. ALBUMIN/GLOBULIN RATIO 2025-03-10 11:27 [facility] 1.5 (missing) (missing) AST ASPARTATE AMINOTRANSFERASE 2025-03-10 11:27 [facility] 12 iu/l As of December 2022 testing method has changed, this may include reference ranges. GFR - MDRD 2025-03-10 11:27 [facility] 123 (missin g) The IDMS-traceable MDRD Study Equation has been validated extensively in and populations between the ages of 18 and 70 with impaired kidney function (eGFR < 60 mL/min/1.73m2) and has shown good performance for patients with all common causes of kidney disease. Although this equation has not been validated for patients older than 70, an MDRD-derived eGFR may still be a useful tool for providers caring for patients older than 70. References: http://www.nkdep. nih.gov/lab-evalu ation/gfr/creatin ine-stand ardization, last updated August 2011. SODIUM 2025-03-10 11:27 [facility] 133 mmol/l Unknown GLUCOSE 2025-03-10 11:27 [facility] 140 mg/dl As of December 2022 testing method has changed, this may include reference ranges. BUN - BLOOD UREA NITROGEN 2025-03-10 11:27 [facility] 18 mg/dl As of Dec testing method has changed, this may include reference ranges. GLOBULIN 2025-03-10 11:27 [facility] 2.7 g/dl (missing) CARBON DIOXIDE - CO2 2025-03-10 11:27 [facility] 31 mmol/l As of December 2022 testing method has changed, this may include reference ranges. POTASSIUM 2025-03-10 11:27 [facility] 4.0 mmol/l As of December 2022 testing method has changed, this may include reference ranges. ALBUMIN 2025-03-10 11:27 [facility] 4.1 g/dl As of December 2022 testing method has changed, this may include reference ranges. TOTAL PROTEIN 2025-03-10 11:27 [facility] 6.8 g/dl As of December 2022 testing method has changed, this may include reference ranges. ALKALINE PHOSPHATASE 2025-03-10 11:27 [facility] 85 iu/l As of December 2022 testing method has changed, this may include reference ranges. ALT ALANINE AMINOTRANSFERASE 2025-03-10 11:27 [facility] 9 iu/l As of December 2022 testing method has changed, this may include reference ranges. ANION GAP 2025-03-10 11:27 [facility] 9.0 (missing ) (missing) CALCIUM 2025-03-10 11:27 [facility] 9.5 mg/dl As of December 2022 testing method has changed, this may include reference ranges. CHLORIDE 2025-03-10 11:27 [facility] 93 mmol/l As of December 2022 testing method has changed, this may include reference ranges. Result panel 6 NUCLEATED RED BLOOD CELLS AUTO 2025-03-17 11:38 [email or web address] 0.0 /100wbc (missing) NRBC ABSOLUTE COUNT (AUTO) 2025-03-17 11:38 [email or web address] 0.00 x10 3/ul (missing) BASOPHILS # (AUTO) 2025-03-17 11:38 [facility] 0.1 10 3/ul (missing) EOSINOPHILS # (AUTO) 2025-03-17 11:38 [facility] 0.2 10 3/ul (missing) BILIRUBIN,TOTAL 2025-03-17 11:38 [facility] 0.3 mg/dl As of December 2022 testing method has changed, this may include reference ranges. CREATININE 2025-03-17 11:38 [facility] 0.7 mg/dl As of December 2022 testing method has changed, this may include reference ranges. MONOCYTES # (AUTO) 2025-03-17 11:38 [facility] 0.9 10 3/ul (missing) MAGNESIUM 2025-03-17 11:38 [facility] 1.3 mg/dl As of December 2022 testing method has changed, this may include reference ranges. ALBUMIN/GLOBULIN RATIO 2025-03-17 11:38 [facility] 1.6 (missing) (missing) AST ASPARTATE AMINOTRANSFERASE 2025-03-17 11:38 [facility] 11 iu/l As of December 2022 testing method has changed, this may include reference ranges. HGB - HEMOGLOBIN 2025-03-17 11:38 [facility] 13.5 g/dl (missing) GLUCOSE 2025-03-17 11:38 [facility] 134 mg/dl As of December 2022 testing method has changed, this may include reference ranges. SODIUM 2025-03-17 11:38 [facility] 136 mmol/l Unknown % IRON SATURATION 2025-03-17 11:38 [facility] 16 % (missing) RED CELL DISTRIBUTION WIDTH 2025-03-17 11:38 [facility] 16.0 % (missing) LYMPHOCYTES # (AUTO) 2025-03-17 11:38 [facility] 2.3 10 3/ul (missing) GLOBULIN 2025-03-17 11:38 [facility] 2.5 g/dl (missing) BUN - BLOOD UREA NITROGEN 2025-03-17 11:38 [facility] 24 mg/dl As of December 2022 testing method has changed, this may include reference ranges. MEAN CORPUSCULAR HEMOGLOBIN 2025-03-17 11:38 [facility] 28.3 pg (missing) POTASSIUM 2025-03-17 11:38 [facility] 3.8 mmol/l As of December 2022 testing method has changed, this may include reference ranges. MEAN CORPUSCULAR HGB CONC 2025-03-17 11:38 [facility] 30.8 g/dl (missing) PLT - PLATELET COUNT 2025-03-17 11:38 [facility] 319 10 3/ul (missing) CARBON DIOXIDE - CO2 2025-03-17 11:38 [facility] 32 mmol/l As of December 2022 testing method has changed, this may include reference ranges. TRANSFERRIN 2025-03-17 11:38 [facility] 325 mg/dl As of December 2022 testing method has changed, this may include reference ranges. FERRITIN 2025-03-17 11:38 [facility] 33.3 ng/ml (missing) ALBUMIN 2025-03-17 11:38 [facility] 4.0 g/dl As of December 2022 testing method has changed, this may include reference ranges. RED BLOOD COUNT 2025-03-17 11:38 [employer] [facility] 4.77 10 6/ul (missing) HCT - HEMATOCRIT 2025-03-17 11:38 [employer] [facility] 43.9 % (missing) TOTAL IRON BINDING CAPACITY 2025-03-17 11:38 [employer] [facility] 455 ug/dl (missing) NEUTROPHILS # (AUTO) 2025-03-17 11:38 [facility] 6.0 10 3/ul (missing) TOTAL PROTEIN 2025-03-17 11:38 [employer] [facility] 6.5 g/dl As of December 2022 testing method has changed, this may include reference ranges. IRON 2025-03-17 11:38 [facility] 72 ug/dl As of December 2022 testing method has changed, this may include reference ranges. ALKALINE PHOSPHATASE 2025-03-17 11:38 [facility] 75 iu/l As of December 2022 testing method has changed, this may include reference ranges. ANION GAP 2025-03-17 11:38 [facility] 8.0 (missing) (missing) GFR - MDRD 2025-03-17 11:38 [facility] 83 (missing) The IDMS-traceable MDRD Study Equation has been validated extensively in and populations between the ages of 18 and 70 with impaired kidney function (eGFR < 60 mL/min/1.73m2) and has shown good performance for patients with all common causes of kidney disease. Although this equation has not been validated for patients older than 70, an MDRD-derived eGFR may still be a useful tool for providers caring for patients older than 70. References: http://www.nkdep. nih.gov/lab-evalu ation/gfr/creatin ine-stand ardization, last updated August 2011. ALT ALANINE AMINOTRANSFERASE 2025-03-17 11:38 [facility] 9 iu/l As of December 2022 testing method has changed, this may include reference ranges. MEAN PLATELET VOLUME 2025-03-17 11:38 [facility] 9.1 fl (missing) CALCIUM 2025-03-17 11:38 [facility] 9.2 mg/dl As of December 2022 testing method has changed, this may include reference ranges. WHITE BLOOD COUNT 2025-03-17 11:38 [facility] 9.5 x10 3/ul (missing) MEAN CORPUSCULAR VOLUME 2025-03-17 11:38 [facility] 92.0 fl (missing) CHLORIDE 2025-03-17 11:38 [facility] 96 mmol/l As of December 2022 testing method has changed, this may include reference ranges. Result panel 7 BILIRUBIN,TOTAL 2025-03-24 11:24 [facility] 0.3 mg /dl As of December 2022 testing method has changed, this may include reference ranges. CREATININE 2025-03-24 11:24 [facility] 0.5 mg/dl As of December 2022 testing method has changed, this may include reference ranges. MAGNESIUM 2025-03-24 11:24 [facility] 1.1 mg/dl As of December 2022 testing method has changed, this may include reference ranges. ALBUMIN/GLOBULIN RATIO 2025-03-24 11:24 [facility] 1.6 (missing) (missing) AST ASPARTATE AMINOTRANSFERASE 2025-03-24 11:24 [facility] 10 iu/l As of December 2022 testing method has changed, this may include reference ranges. GFR - MDRD 2025-03-24 11:24 [facility] 123 (dea soliz) The IDAK-traceable MDRD Study Equation has been validated extensively in and populations between the ages of 18 and 70 with impaired kidney function (eGFR < 60 mL/min/1.73m2) and has shown good performance for patients with all common causes of kidney disease. Although this equation has not been validated for patients older than 70, an MDRD-derived eGFR may still be a useful tool for providers caring for patients older than 70. References: http://www.nkdep. nih.gov/lab-evalu ation/gfr/creatin ine-stand ardization, last updated August 2011. GLUCOSE 2025-03-24 11:24 [facility] 127 mg/dl As of December 2022 testing method has changed, this may include reference ranges. SODIUM 2025-03-24 11:24 [facility] 139 mmol/l Unknown BUN - BLOOD UREA NITROGEN 2025-03-24 11:24 [facility] 15 mg/dl As of Dec testing method has changed, this may include reference ranges. GLOBULIN 2025-03-24 11:24 [facility] 2.5 g/dl (missing) POTASSIUM 2025-03-24 11:24 [facility] 3.6 mmol/l As of December 2022 testing method has changed, this may include reference ranges. CARBON DIOXIDE - CO2 2025-03-24 11:24 [facility] 34 mmol/l As of December 2022 testing method has changed, this may include reference ranges. ALBUMIN 2025-03-24 11:24 [facility] 4.0 g/dl As of December 2022 testing method has changed, this may include reference ranges. TOTAL PROTEIN 2025-03-24 11:24 [facility] 6.5 g/dl As of December 2022 testing method has changed, this may include reference ranges. ANION GAP 2025-03-24 11:24 [facility] 7.0 (missing ) (missing) ALT ALANINE AMINOTRANSFERASE 2025-03-24 11:24 [facility] 8 iu/l As of December 2022 testing method has changed, this may include reference ranges. CALCIUM 2025-03-24 11:24 [facility] 9.2 mg/dl As of December 2022 testing method has changed, this may include reference ranges. ALKALINE PHOSPHATASE 2025-03-24 11:24 [facility] 96 iu/l As of December 2022 testing method has changed, this may include reference ranges. CHLORIDE 2025-03-24 11:24 [facility] 98 mmol/l As of December 2022 testing method has changed, this may include reference ranges. Result panel 8 NUCLEATED RED BLOOD CELLS AUTO 2025-03-31 11:25 [facility] 0.0 /100wbc (missing) NRBC ABSOLUTE COUNT (AUTO) 2025-03-31 11:25 [facility] 0.00 x10 3/ul (missing) BASOPHILS # (AUTO) 2025-03-31 11:25 [facility] 0.1 10 3/ul (missing) EOSINOPHILS # (AUTO) 2025-03-31 11:25 [facility] 0.2 10 3/ul (missing) BILIRUBIN,TOTAL 2025-03-31 11:25 [facility] 0.3 mg/dl As of December 2022 testing method has changed, this may include reference ranges. CREATININE 2025-03-31 11:25 [facility] 0.7 mg/dl As of December 2022 testing method has changed, this may include reference ranges. MONOCYTES # (AUTO) 2025-03-31 11:25 [facility] 0.8 10 3/ul (missing) ALBUMIN/GLOBULIN RATIO 2025-03-31 11:25 [facility] 1.6 (missing) (missing) MAGNESIUM 2025-03-31 11:25 [facility] 1.7 mg/dl As of December 2022 testing method has changed, this may include reference ranges. ALT ALANINE AMINOTRANSFERASE 2025-03-31 11:25 [facility] 10 iu/l As of December 2022 testing method has changed, this may include reference ranges. ALKALINE PHOSPHATASE 2025-03-31 11:25 [facility] 103 iu/l As of December 2022 testing method has changed, this may include reference ranges. GLUCOSE 2025-03-31 11:25 [facility] 108 mg/dl As of December 2022 testing method has changed, this may include reference ranges. HGB - HEMOGLOBIN 2025-03-31 11:25 [facility] 13.6 g/dl (missing) SODIUM 2025-03-31 11:25 [facility] 134 mmol/l Unknown RED CELL DISTRIBUTION WIDTH 2025-03-31 11:25 [facility] 15.9 % (missing) AST ASPARTATE AMINOTRANSFERASE 2025-03-31 11:25 [facility] 16 iu/l As of December 2022 testing method has changed, this may include reference ranges. BUN - BLOOD UREA NITROGEN 2025-03-31 11:25 [facility] 17 mg/dl As of December 2022 testing method has changed, this may include reference ranges. LYMPHOCYTES # (AUTO) 2025-03-31 11:25 [facility] 2.2 10 3/ul (missing) GLOBULIN 2025-03-31 11:25 [facility] 2.5 g/dl (missing) MEAN CORPUSCULAR HEMOGLOBIN 2025-03-31 11:25 [facility] 27.8 pg (missing) MEAN CORPUSCULAR HGB CONC 2025-03-31 11:25 [facility] 30.4 g/dl (missing) CARBON DIOXIDE - CO2 2025-03-31 11:25 [facility] 32 mmol/l As of December 2022 testing method has changed, this may include reference ranges. PLT - PLATELET COUNT 2025-03-31 11:25 [facility] 367 10 3/ul (missing) ALBUMIN 2025-03-31 11:25 [facility] 4.1 g/dl As of December 2022 testing method has changed, this may include reference ranges. POTASSIUM 2025-03-31 11:25 [facility] 4.1 mmol/l As of December 2022 testing method has changed, this may include reference ranges. RED BLOOD COUNT 2025-03-31 11:25 [facility] 4.90 10 6/ul (missing) HCT - HEMATOCRIT 2025-03-31 11:25 [facility] 44.7 % (missing) NEUTROPHILS # (AUTO) 2025-03-31 11:25 [facility] 5.5 10 3/ul (missing) TOTAL PROTEIN 2025-03-31 11:25 [facility] 6.6 g/dl As of December 2022 testing method has changed, this may include reference ranges. ANION GAP 2025-03-31 11:25 [facility] 7.0 (missing) (missing) WHITE BLOOD COUNT 2025-03-31 11:25 [facility] 8.8 x10 3/ul (missing) GFR - MDRD 2025-03-31 11:25 [facility] 83 (missing) The IDMS-traceable MDRD Study Equation has been validated extensively in and populations between the ages of 18 and 70 with impaired kidney function (eGFR < 60 mL/min/1.73m2) and has shown good performance for patients with all common causes of kidney disease. Although this equation has not been validated for patients older than 70, an MDRD-derived eGFR may still be a useful tool for providers caring for patients older than 70. References: http://www.nkdep. nih.gov/lab-evalu ation/gfr/creatin ine-stand ardization, last updated August 2011. MEAN PLATELET VOLUME 2025-03-31 11:25 [facility] 9.0 fl (missing) CALCIUM 2025-03-31 11:25 [facility] 9.5 mg/dl As of December 2022 testing method has changed, this may include reference ranges. MEAN CORPUSCULAR VOLUME 2025-03-31 11:25 [facility] 91.2 fl (missing) CHLORIDE 2025-03-31 11:25 [facility] 95 mmol/l As of December 2022 testing method has changed, this may include reference ranges. Result panel 9 NUCLEATED RED BLOOD CELLS AUTO 2025-04-14 11:40 [facility] 0.0 /100wbc (missing) NRBC ABSOLUTE COUNT (AUTO) 2025-04-14 11:40 [facility] 0.00 x10 3/ul (missing) BASOPHILS # (AUTO) 2025-04-14 11:40 [facility] 0.1 10 3/ul (missing) EOSINOPHILS # (AUTO) 2025-04-14 11:40 [facility] 0.1 10 3/ul (missing) BILIRUBIN,TOTAL 2025-04-14 11:40 [facility] 0.2 mg/dl As of December 2022 testing method has changed, this may include reference ranges. CREATININE 2025-04-14 11:40 [facility] 0.7 mg/dl As of December 2022 testing method has changed, this may include reference ranges. MONOCYTES # (AUTO) 2025-04-14 11:40 [facility] 0.8 10 3/ul (missing) MAGNESIUM 2025-04-14 11:40 [facility] 1.1 mg/dl As of December 2022 testing method has changed, this may include reference ranges. ALBUMIN/GLOBULIN RATIO 2025-04-14 11:40 [facility] 1.5 (missing) (missing) LYMPHOCYTES # (AUTO) 2025-04-14 11:40 [facility] 1.6 10 3/ul (missing) GLUCOSE 2025-04-14 11:40 [facility] 118 mg/dl As of December 2022 testing method has changed, this may include reference ranges. AST ASPARTATE AMINOTRANSFERASE 2025-04-14 11:40 [facility] 12 iu/l As of December 2022 testing method has changed, this may include reference ranges. % IRON SATURATION 2025-04-14 11:40 [facility] 13 % (missing) HGB - HEMOGLOBIN 2025-04-14 11:40 [facility] 13.6 g/dl (missing) SODIUM 2025-04-14 11:40 [facility] 136 mmol/l Unknown RED CELL DISTRIBUTION WIDTH 2025-04-14 11:40 [facility] 15.9 % (missing) BUN - BLOOD UREA NITROGEN 2025-04-14 11:40 [facility] 17 mg/dl As of December 2022 testing method has changed, this may include reference ranges. GLOBULIN 2025-04-14 11:40 [facility] 2.6 g/dl (missing) FERRITIN 2025-04-14 11:40 [facility] 26.6 ng/ml (missing) MEAN CORPUSCULAR HEMOGLOBIN 2025-04-14 11:40 [facility] 27.5 pg (missing) MEAN CORPUSCULAR HGB CONC 2025-04-14 11:40 [facility] 30.8 g/dl (missing) CARBON DIOXIDE - CO2 2025-04-14 11:40 [facility] 32 mmol/l As of December 2022 testing method has changed, this may include reference ranges. PLT - PLATELET COUNT 2025-04-14 11:40 [facility] 342 10 3/ul (missing) TRANSFERRIN 2025-04-14 11:40 [facility] 344 mg/dl As of December 2022 testing method has changed, this may include reference ranges. ALBUMIN 2025-04-14 11:40 [facility] 4.0 g/dl As of December 2022 testing method has changed, this may include reference ranges. POTASSIUM 2025-04-14 11:40 [facility] 4.1 mmol/l As of December 2022 testing method has changed, this may include reference ranges. RED BLOOD COUNT 2025-04-14 11:40 [facility] 4.95 10 6/ul (missing) HCT - HEMATOCRIT 2025-04-14 11:40 [facility] 44.2 % (missing) TOTAL IRON BINDING CAPACITY 2025-04-14 11:40 [facility] 482 ug/dl (missing) TOTAL PROTEIN 2025-04-14 11:40 [facility] 6.6 g/dl As of December 2022 testing method has changed, this may include reference ranges. IRON 2025-04-14 11:40 [facility] 62 ug/dl As of December 2022 testing method has changed, this may include reference ranges. ANION GAP 2025-04-14 11:40 [facility] 7.0 (missing) (missing) NEUTROPHILS # (AUTO) 2025-04-14 11:40 [facility] 7.2 10 3/ul (missing) GFR - MDRD 2025-04-14 11:40 [facility] 83 (missing) The IDMS-traceable MDRD Study Equation has been validated extensively in and populations between the ages of 18 and 70 with impaired kidney function (eGFR < 60 mL/min/1.73m2) and has shown good performance for patients with all common causes of kidney disease. Although this equation has not been validated for patients older than 70, an MDRD-derived eGFR may still be a useful tool for providers caring for patients older than 70. References: http://www.nkdep. nih.gov/lab-evalu ation/gfr/creatin ine-stand ardization, last updated August 2011. MEAN CORPUSCULAR VOLUME 2025-04-14 11:40 [facility] 89.3 fl (missing) ALT ALANINE AMINOTRANSFERASE 2025-04-14 11:40 [facility] 9 iu/l As of December 2022 testing method has changed, this may include reference ranges. MEAN PLATELET VOLUME 2025-04-14 11:40 [facility] 9.0 fl (missing) CALCIUM 2025-04-14 11:40 [facility] 9.1 mg/dl As of December 2022 testing method has changed, this may include reference ranges. WHITE BLOOD COUNT 2025-04-14 11:40 [facility] 9.8 x10 3/ul (missing) CHLORIDE 2025-04-14 11:40 [facility] 97 mmol/l As of December 2022 testing method has changed, this may include reference ranges. ALKALINE PHOSPHATASE 2025-04-14 11:40 [facility] 99 iu/l As of December 2022 testing method has changed, this may include reference ranges. Result panel 10 BILIRUBIN,TOTAL 2025-04-21 11:39 [facility] 0.3 mg /dl As of December 2022 testing method has changed, this may include reference ranges. CREATININE 2025-04-21 11:39 [facility] 0.7 mg/dl As of December 2022 testing method has changed, this may include reference ranges. MAGNESIUM 2025-04-21 11:39 [facility] 0.9 mg/dl Critical result MG 0.9 mg/dL called to and read back by Giselle Smith RN/ALEX at 21-Apr-2025 11:55 by Tomasz. As of December 2022 testing method has changed, this may include reference ranges. ALBUMIN/GLOBULIN RATIO 2025-04-21 11:39 [facility] 1.6 (missing) (missing) ALT ALANINE AMINOTRANSFERASE 2025-04-21 11:39 [facility] 10 iu/l As of December 2022 testing method has changed, this may include reference ranges. ALKALINE PHOSPHATASE 2025-04-21 11:39 [facility] 104 iu/l As of December 2022 testing method has changed, this may include reference ranges. SODIUM 2025-04-21 11:39 [facility] 138 mmol/l Unknown GLUCOSE 2025-04-21 11:39 [facility] 139 mg/dl As of December 2022 testing method has changed, this may include reference ranges. AST ASPARTATE AMINOTRANSFERASE 2025-04-21 11:39 [facility] 14 iu/l As of December 2022 testing method has changed, this may include reference ranges. BUN - BLOOD UREA NITROGEN 2025-04-21 11:39 [facility] 16 mg/dl As of Dec testing method has changed, this may include reference ranges. GLOBULIN 2025-04-21 11:39 [facility] 2.5 g/dl (missing) POTASSIUM 2025-04-21 11:39 [facility] 3.5 mmol/l As of December 2022 testing method has changed, this may include reference ranges. CARBON DIOXIDE - CO2 2025-04-21 11:39 [facility] 31 mmol/l As of December 2022 testing method has changed, this may include reference ranges. ALBUMIN 2025-04-21 11:39 [facility] 4.1 g/dl As of December 2022 testing method has changed, this may include reference ranges. TOTAL PROTEIN 2025-04-21 11:39 [facility] 6.6 g/dl As of December 2022 testing method has changed, this may include reference ranges. GFR - MDRD 2025-04-21 11:39 [facility] 83 (missin g) The IDMS-traceable MDRD Study Equation has been validated extensively in and populations between the ages of 18 and 70 with impaired kidney function (eGFR < 60 mL/min/1.73m2) and has shown good performance for patients with all common causes of kidney disease. Although this equation has not been validated for patients older than 70, an MDRD-derived eGFR may still be a useful tool for providers caring for patients older than 70. References: http://www.nkdep. nih.gov/lab-evalu ation/gfr/creatin ine-stand ardization, last updated August 2011. ANION GAP 2025-04-21 11:39 [facility] 9.0 (missing ) (missing) CALCIUM 2025-04-21 11:39 [facility] 9.1 mg/dl As of December 2022 testing method has changed, this may include reference ranges. CHLORIDE 2025-04-21 11:39 [facility] 98 mmol/l As of December 2022 testing method has changed, this may include reference ranges. Result panel 11 NUCLEATED RED BLOOD CELLS AUTO 2025-04-24 13:38 [facility] 0.0 /100wbc (missing) NRBC ABSOLUTE COUNT (AUTO) 2025-04-24 13:38 [facility] 0.00 x10 3/ul (missing) BASOPHILS # (AUTO) 2025-04-24 13:38 [facility] 0.1 10 3/ul (missing) EOSINOPHILS # (AUTO) 2025-04-24 13:38 [facility] 0.2 10 3/ul (missing) BILIRUBIN,TOTAL 2025-04-24 13:38 [facility] 0.2 mg/dl As of December 2022 testing method has changed, this may include reference ranges. MONOCYTES # (AUTO) 2025-04-24 13:38 [facility] 0.5 10 3/ul (missing) CREATININE 2025-04-24 13:38 [facility] 0.5 mg/dl As of December 2022 testing method has changed, this may include reference ranges. LYMPHOCYTES # (AUTO) 2025-04-24 13:38 [facility] 1.3 10 3/ul (missing) MAGNESIUM 2025-04-24 13:38 [facility] 1.3 mg/dl As of December 2022 testing method has changed, this may include reference ranges. ALBUMIN/GLOBULIN RATIO 2025-04-24 13:38 [facility] 1.5 (missing) (missing) BUN - BLOOD UREA NITROGEN 2025-04-24 13:38 [facility] 10 mg/dl As of December 2022 testing method has changed, this may include reference ranges. CHLORIDE 2025-04-24 13:38 [facility] 101 mmol/l As of December 2022 testing method has changed, this may include reference ranges. AST ASPARTATE AMINOTRANSFERASE 2025-04-24 13:38 [facility] 11 iu/l As of December 2022 testing method has changed, this may include reference ranges. GFR - MDRD 2025-04-24 13:38 [facility] 123 (missing) The IDMS-traceable MDRD Study Equation has been validated extensively in and populations between the ages of 18 and 70 with impaired kidney function (eGFR < 60 mL/min/1.73m2) and has shown good performance for patients with all common causes of kidney disease. Although this equation has not been validated for patients older than 70, an MDRD-derived eGFR may still be a useful tool for providers caring for patients older than 70. References: http://www.nkdep. nih.gov/lab-evalu ation/gfr/creatin ine-stand ardization, last updated August 2011. HGB - HEMOGLOBIN 2025-04-24 13:38 [facility] 13.0 g/dl (missing) SODIUM 2025-04-24 13:38 [facility] 138 mmol/l (missing) GLUCOSE 2025-04-24 13:38 [facility] 155 mg/dl As of December 2022 testing method has changed, this may include reference ranges. RED CELL DISTRIBUTION WIDTH 2025-04-24 13:38 [facility] 16.6 % (missing) GLOBULIN 2025-04-24 13:38 [facility] 2.6 g/dl (missing) MEAN CORPUSCULAR HEMOGLOBIN 2025-04-24 13:38 [facility] 27.0 pg (missing) CARBON DIOXIDE - CO2 2025-04-24 13:38 [facility] 28 mmol/l As of December 2022 testing method has changed, this may include reference ranges. PLT - PLATELET COUNT 2025-04-24 13:38 [facility] 296 10 3/ul (missing) NEUTROPHILS # (AUTO) 2025-04-24 13:38 [facility] 3.9 10 3/ul (missing) POTASSIUM 2025-04-24 13:38 [facility] 3.9 mmol/l As of December 2022 testing method has changed, this may include reference ranges. MEAN CORPUSCULAR HGB CONC 2025-04-24 13:38 [facility] 30.4 g/dl (missing) ALBUMIN 2025-04-24 13:38 [facility] 4.0 g/dl As of December 2022 testing method has changed, this may include reference ranges. RED BLOOD COUNT 2025-04-24 13:38 [facility] 4.81 10 6/ul (missing) HCT - HEMATOCRIT 2025-04-24 13:38 [facility] 42.8 % (missing) LIPASE 2025-04-24 13:38 [facility] 51 u/l As of December 2022 testing method has changed, this may include reference ranges. WHITE BLOOD COUNT 2025-04-24 13:38 [facility] 6.0 x10 3/ul (missing) TOTAL PROTEIN 2025-04-24 13:38 [facility] 6.6 g/dl As of December 2022 testing method has changed, this may include reference ranges. MEAN CORPUSCULAR VOLUME 2025-04-24 13:38 [facility] 89.0 fl (missing) ALT ALANINE AMINOTRANSFERASE 2025-04-24 13:38 [facility] 9 iu/l As of December 2022 testing method has changed, this may include reference ranges. ANION GAP 2025-04-24 13:38 [facility] 9.0 (missing) (missing) MEAN PLATELET VOLUME 2025-04-24 13:38 [facility] 9.1 fl (missing) CALCIUM 2025-04-24 13:38 [facility] 9.7 mg/dl As of December 2022 testing method has changed, this may include reference ranges. ALKALINE PHOSPHATASE 2025-04-24 13:38 [facility] 94 iu/l As of December 2022 testing method has changed, this may include reference ranges. Result panel 12 NUCLEATED RED BLOOD CELLS AUTO 2025-04-28 11:37 [facility] 0.0 /100wbc (missing) NRBC ABSOLUTE COUNT (AUTO) 2025-04-28 11:37 [facility] 0.00 x10 3/ul (missing) BASOPHILS # (AUTO) 2025-04-28 11:37 [facility] 0.1 10 3/ul (missing) EOSINOPHILS # (AUTO) 2025-04-28 11:37 [facility] 0.3 10 3/ul (missing) BILIRUBIN,TOTAL 2025-04-28 11:37 [facility] 0.3 mg/dl As of December 2022 testing method has changed, this may include reference ranges. MONOCYTES # (AUTO) 2025-04-28 11:37 [facility] 0.5 10 3/ul (missing) CREATININE 2025-04-28 11:37 [facility] 0.7 mg/dl As of December 2022 testing method has changed, this may include reference ranges. MAGNESIUM 2025-04-28 11:37 [facility] 0.8 mg/dl Critical result MG 0.8 mg/dL called to and read back by GLADIS Shaw RN/ALEX at 28-Apr-2025 11:53 by linda. As of December 2022 testing method has changed, this may include reference ranges. LYMPHOCYTES # (AUTO) 2025-04-28 11:37 [facility] 1.2 10 3/ul (missing) ALBUMIN/GLOBULIN RATIO 2025-04-28 11:37 [facility] 1.6 (missing) (missing) AST ASPARTATE AMINOTRANSFERASE 2025-04-28 11:37 [facility] 11 iu/l As of December 2022 testing method has changed, this may include reference ranges. ANION GAP 2025-04-28 11:37 [facility] 11.0 (missing) (missing) HGB - HEMOGLOBIN 2025-04-28 11:37 [facility] 13.3 g/dl (missing) SODIUM 2025-04-28 11:37 [facility] 137 mmol/l Unknown BUN - BLOOD UREA NITROGEN 2025-04-28 11:37 [facility] 15 mg/dl As of December 2022 testing method has changed, this may include reference ranges. GLUCOSE 2025-04-28 11:37 [facility] 154 mg/dl As of December 2022 testing method has changed, this may include reference ranges. RED CELL DISTRIBUTION WIDTH 2025-04-28 11:37 [facility] 16.6 % (missing) GLOBULIN 2025-04-28 11:37 [facility] 2.6 g/dl (missing) MEAN CORPUSCULAR HEMOGLOBIN 2025-04-28 11:37 [facility] 27.3 pg (missing) POTASSIUM 2025-04-28 11:37 [facility] 3.7 mmol/l As of December 2022 testing method has changed, this may include reference ranges. CARBON DIOXIDE - CO2 2025-04-28 11:37 [facility] 30 mmol/l As of December 2022 testing method has changed, this may include reference ranges. MEAN CORPUSCULAR HGB CONC 2025-04-28 11:37 [facility] 30.9 g/dl (missing) PLT - PLATELET COUNT 2025-04-28 11:37 [facility] 303 10 3/ul (missing) ALBUMIN 2025-04-28 11:37 [facility] 4.1 g/dl As of December 2022 testing method has changed, this may include reference ranges. RED BLOOD COUNT 2025-04-28 11:37 [facility] 4.87 10 6/ul (missing) HCT - HEMATOCRIT 2025-04-28 11:37 [facility] 43.1 % (missing) NEUTROPHILS # (AUTO) 2025-04-28 11:37 [facility] 5.3 10 3/ul (missing) TOTAL PROTEIN 2025-04-28 11:37 [facility] 6.7 g/dl As of December 2022 testing method has changed, this may include reference ranges. WHITE BLOOD COUNT 2025-04-28 11:37 [facility] 7.3 x10 3/ul (missing) ALT ALANINE AMINOTRANSFERASE 2025-04-28 11:37 [facility] 8 iu/l As of December 2022 testing method has changed, this may include reference ranges. MEAN PLATELET VOLUME 2025-04-28 11:37 [facility] 8.8 fl (missing) GFR - MDRD 2025-04-28 11:37 [facility] 83 (missing) The IDMS-traceable MDRD Study Equation has been validated extensively in and populations between the ages of 18 and 70 with impaired kidney function (eGFR < 60 mL/min/1.73m2) and has shown good performance for patients with all common causes of kidney disease. Although this equation has not been validated for patients older than 70, an MDRD-derived eGFR may still be a useful tool for providers caring for patients older than 70. References: http://www.nkdep. nih.gov/lab-evalu ation/gfr/creatin ine-stand ardization, last updated August 2011. ALKALINE PHOSPHATASE 2025-04-28 11:37 [facility] 87 iu/l As of December 2022 testing method has changed, this may include reference ranges. MEAN CORPUSCULAR VOLUME 2025-04-28 11:37 [facility] 88.5 fl (missing) CALCIUM 2025-04-28 11:37 [facility] 9.0 mg/dl As of December 2022 testing method has changed, this may include reference ranges. CHLORIDE 2025-04-28 11:37 [facility] 96 mmol/l As of December 2022 testing method has changed, this may include reference ranges. Social History date description facility
[2025-05-02] MEDS: SODIUM CHLORIDE 0.9% 1,000 ML IV STA (21:19)
[2025-05-02] MEDS: MAGNESIUM SULFATE 2 GRAM 2 GM/50 ML BAG IV ONE ×2 (21:20→23:49)
[2025-05-02] MEDS: HYDROmorphone 1 MG/ML CARPUJECT IVP STA ×2 (21:20→23:21)
[2025-05-02] MEDS: ONDANSETRON ODT 4 MG TABLET TL STA (21:21)
[2025-05-02] MEDS ORDERED: ONDANSETRON 4 MG/2 ML VIAL ONE (21:40)
[2025-05-02 22:17] LABS: ALT ALANINE AMINOTRANSFERASE 8.0 IU/L (10-60); AST ASPARTATE AMINOTRANSFERASE 17.0 IU/L (10-42); BUN - BLOOD UREA NITROGEN 15.0 mg/dL (6-20); CARBON DIOXIDE - CO2 26.0 mmol/L (21-32); CREATININE 0.5 mg/dL (0.6-1.3); GFR - MDRD 123.0 (>89)
[2025-05-02 22:49] LABS: HCT - HEMATOCRIT 48.2 % (37.0-47.0); HGB - HEMOGLOBIN 14.9 g/dL (12.0-16.0); MEAN PLATELET VOLUME 8.9 fL (7.9-10.8); NRBC ABSOLUTE COUNT (AUTO) 0.00 x10^3/uL; NUCLEATED RED BLOOD CELLS AUTO 0.0 /100WBC; PLT - PLATELET COUNT 344 10^3/uL (130-450); RED CELL DISTRIBUTION WIDTH 16.9 % (12.0-15.0)
[2025-05-02] MEDS: POTASSIUM CHLOR 10 MEQ/100 ML 10 MEQ/100 ML BAG IV STA (22:50)
[2025-05-02] MEDS: CALCIUM GLUC 1,000MG/50ML-NACL 1,000 MG/50 ML BAG IV STA (22:50)
[2025-05-02] MEDS: ONDANSETRON 4 MG/2 ML VIAL IVP STA ×2 (22:50→23:50)
[2025-05-02] MEDS: ALTEPLASE 2 MG VIAL IR ONE (23:02)
--- NOTE | 2025-05-02 23:13 | ED Physician Documentation ---
ED Addendum Addendum Addendum: Patient was handed off to me at [address] Monsalve. Briefly this patient presented with abdominal pain, and was found to have a stable appearance of her known ventral hernia on CT scan, but has significant electrolyte abnormalities with low magnesium, low potassium, low calcium. After completion of workup in the ER, she was ultimately admitted to the ICU here at our hospital. She was started on repletion of magnesium as well as potassium prior to my shift. She has otherwise remained stable throughout duration of my shift until she was sent to the ICU. Discharge Plan Discharge Patient Disposition: 67 [facility] DC/Xfer Condition: Good Clinical Impression: Hypomagnesemia, Hypocalcemia, Hypokalemia, Abdominal pain Prescriptions: No Action nystatin [Nyamyc] 100,000 unit/gram powder 1 applic topical BID Qty: 180 5RF Rx Instructions: Use bid prn to skin folds. (DME) BreatheRite MDI Spacer Spacer See Rx Instructions .Route Qty: 1 0RF Rx Instructions: As directed glimepiride 1 mg tablet 1 mg PO DAILY Qty: 90 3RF mupirocin [Centany] 2 % ointment 1 applic topical BID MDD 0.25g each nostril Qty: 15 0RF Rx Instructions: 0.25g is about one half finger tip of ointment. Use each nostril twice daily for 5 days. metoprolol tartrate 50 mg tablet 50 mg PO BID Qty: 180 5RF Rx Instructions: Take with 25 mg tablet = 75 mg. May take additional tablet if HR >150. lorazepam 0.5 mg tablet 0.5 mg PO BID PRN (Reason: anxiety and sleep) Qty: 60 0RF Patient Comments: Usually uses qhs dicyclomine 10 mg capsule See Rx Instructions PO .COMPLEX PRN (Reason: abdominal pain) Qty: 100 2RF Rx Instructions: 1-2 caps orally PRN; Lactobacillus acidoph-L.bulgar [Floranex] 1 million cell tablet 1 tab PO BID potassium chloride 10 mEq capsule, extended release 10 meq PO DAILY allopurinol 300 mg tablet 300 mg PO DAILY Patient Comments: in addition to the 100mg tablet furosemide [Lasix] 20 mg tablet 20 mg PO DAILY Rx Instructions: May take extra tablet every couple days for increased edema L-Methylfolate Forte 7.5-90.314 mg capsule 1 cap PO DAILY ascorbic acid (vitamin C) 500 mg capsule 500 mg PO DAILY (DME) Permanent Disabled Placshantel Misc See Rx Instructions .Route Rx Instructions: As directed hydrocortisone 2.5 % cream 1 applic topical DAILY PRN (Reason: rash) aspirin 325 mg tablet,delayed release (DR/EC) 650 mg PO BID PRN (Reason: osteoarthritis) Rx Instructions: May take additional two doses (two tablets) for total of four doses daily Gummies (DHA-EPA) 180 mcg-32.5mg- 25 mg-7.5 mg tablet,chewable 1 tab PO Q OTHER DAY Qty: 180 0RF epinephrine [EpiPen] 0.3 mg/0.3 mL auto-injector 0.3 mg IM Q10M PRN (Reason: anaphylaxis) Qty: 2 3RF Rx Instructions: for 2 doses (DME) OneTouch Ultra Test Strip See Rx Instructions .Route Qty: 100 3RF Rx Instructions: One Touch Abiola Test Strips. As directed Use twice a day varenicline tartrate [Chantix] 1 mg tablet 1 mg PO BID Qty: 60 1RF ondansetron 4 mg tablet,disintegrating 4 mg translingual TID PRN (Reason: Nausea / Vomiting) Qty: 60 2RF hydromorphone 1 mg/mL liquid 4 - 6 mg PO Q4-6H PRN (Reason: pain) Qty: 473 0RF cetirizine 10 mg tablet 10 mg PO QPM PRN (Reason: allergy symptoms) cholecalciferol (vitamin D3) 125 mcg (5,000 unit) capsule 125 mcg PO DAILY guaifenesin 1,200 mg tablet extended release 12hr 1,200 mg PO BID magnesium glycinate 120 mg capsule 120 mg PO BID gabapentin 300 mg capsule 300 mg PO BID Qty: 180 2RF esomeprazole magnesium [Nexium] 40 mg capsule,delayed release(DR/EC) 40 mg PO QDAY ezetimibe 10 mg tablet 10 mg PO QDAY Qty: 30 2RF prednisone 5 mg tablet 5 mg PO DAILY Qty: 90 2RF vortioxetine 20 mg tablet 20 mg PO DAILY Qty: 90 3RF Print Language: Irish
[2025-05-02] MEDS ORDERED: MAGNESIUM SULFATE 2 GRAM 2 GM/50 ML BAG IV ONE (23:31)
--- NOTE | 2025-05-02 23:54 | CT Report ---
PROCEDURE: CT Abdomen/Pelvis W INDICATIONS: iv only, vomiting CONTRAST: Omni 300 100ml TECHNIQUE: After the administration of intravenous contrast, a CT scan of the abdomen and pelvis was performed. Images were recorded and evaluated at appropriate window settings. Reformats: coronal and sagittal. For radiation dose reduction, the following was used: automated exposure control, adjustment of mA and/or kV according to patient size. COMPARISON: CT abdomen pelvis 04/24/2025 FINDINGS: Image quality: Diagnostic. Lower chest: Unremarkable. Liver: No solid mass. Gallbladder: Surgically absent. Biliary tree: No intrahepatic or extrahepatic dilation, accounting for age. Spleen: No splenomegaly. Pancreas: No pancreatic ductal dilation. Adrenals: No adrenal nodule. Kidneys and ureters: Nonobstructing left punctate nephrolithiasis. No hydronephrosis. No renal cystic lesion which requires follow up. No solid mass. Stomach, bowel and peritoneum: Compared to prior CT 04/24/2025, interval resolution of small bowel obstruction. No evidence of small bowel obstruction on the current exam. Stable postsurgical changes in the mid abdomen. . No abnormal wall thickening. No pathologic free fluid. Lymph nodes: No central or retroperitoneal adenopathy. Vessels: No infrarenal aortic aneurysm. Patent portal vein. PELVIS Reproductive organs: Status post hysterectomy Bladder: No abnormal wall thickening. Pelvic lymph nodes: No pelvic adenopathy by size criteria. Bones: No aggressive osseous abnormality. Other: Redemonstration of periumbilical hernia containing nonobstructing loops of small bowel. Additional smaller supraumbilical hernia containing fat. IMPRESSION: Compared to prior CT 04/24/2025, interval resolution of previously seen small bowel obstruction secondary to incarcerated ventral hernia. There is persistent periumbilical hernia containing nonobstructed small bowel. Additional findings as above. Reviewed by: Barbra Pratt MD, PhD on 05/02/2025 11:51 PM PST Approved by: Barbra Pratt MD, PhD on 05/02/2025 11:51 PM PST Station ID: [id number]
[2025-05-03] MEDS: METOPROLOL SUCCINATE 50 MG TABLET PO STA (00:36)
[2025-05-03] MEDS ORDERED: NON FORMULARY MED (Hydromorphone 1 mg/mL liquid) PO PRN (01:30)
--- NOTE | 2025-05-03 02:08 | XRAY Report ---
PROCEDURE: XR Chest 1V INDICATIONS: Shortness of breath TECHNIQUE: One view of the chest was acquired. COMPARISON: Chest radiograph 01/08/2025 FINDINGS: Surgical changes and devices: Left chest wall port catheter with distal tip projecting over the lower SVC. Right proximal humeral surgical anchors. Lungs and pleura: No pleural effusions or pneumothorax. No consolidation. Mediastinum: Mediastinal contours appear normal. Heart size is normal. Bones and chest wall: No suspicious bony lesions. Overlying soft tissues appear unremarkable. IMPRESSION: No acute cardiopulmonary process. Reviewed by: Barbra Pratt MD, PhD on 05/03/2025 2:04 AM PST Approved by: Barbra Pratt MD, PhD on 05/03/2025 2:04 AM PST Station ID: [id number]
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
[2025-05-03] MEDS: HYDROmorphone 1 MG/ML CARPUJECT IVP STA (02:27)
[2025-05-03] MEDS ORDERED: ONDANSETRON 4 MG/2 ML VIAL IVP PRN (02:40)
--- OUTSIDE RECORDS SUMMARY | 2025-05-03 02:51 | EXTERNAL MEDICAL SUMMARY RPT | Continuity of Care Document ---
Author Organization [facility] Address [address] [id number] Phone Problems date description facility 2025-01-26 11:44 Mood disorder due to known physiological condition with depressive features [facility] 2025-01-26 11:44 Major depressive disorder, recu rrent, moderate [facility] 2025-01-26 11:44 Anxiety disorder, unspecified [facility] 2025-01-26 11:44 Post-traumatic stress disorder, unspecified [facility] 2025-01-26 11:45 Mood disorder due to known physiological condition with depressive features [facility] 2025-01-26 11:45 Major depressive disorder, recu rrent, moderate [facility] 2025-01-26 11:45 Anxiety disorder, unspecified [facility] 2025-01-26 11:45 Post-traumatic stress disorder, unspecified [facility] 2025-02-03 11:16 Anemia, unspecified [facility] 2025-02-03 11:16 Hypothyroidism, unspecified i [facility] 2025-02-03 11:16 Type 2 diabetes reta itus with unspecified complications [facility] 2025-02-03 11:16 Deficiency of other specified B group vitamins [facility] 2025-02-03 11:16 Hypomagnesemia [facility] 2025-02-03 11:16 Hypocalcemia [facility] 2025-02-03 11:16 Essential (primary) hypertensio n [facility] 2025-02-03 11:16 Chronic diastolic (congestive) heart failure [facility] 2025-02-03 11:16 Lymphedema, not elsewhere class ified [facility] 2025-02-03 11:16 Unspecified disorder of circula tory system [facility] 2025-02-03 11:16 Other specified diseases of margarita er [facility] 2025-02-03 11:16 Pressure ulcer of sacral region , stage 2 [facility] 2025-02-03 11:16 Gout, unspecified [facility] 2025-02-03 11:16 Age-related osteopor osis without current pathological fracture [facility] 2025-02-03 11:16 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 [facility] 2025-02-03 11:16 Other mechanical com plication of infusion catheter, initial encounter [facility] 2025-02-03 12:37 Anemia, unspecified [facility] 2025-02-03 12:37 Hypothyroidism, unspecified i [facility] 2025-02-03 12:37 Type 2 diabetes reta itus with unspecified complications [facility] 2025-02-03 12:37 Deficiency of other specified B group vitamins [facility] 2025-02-03 12:37 Hypomagnesemia [facility] 2025-02-03 12:37 Hypocalcemia [facility] 2025-02-03 12:37 Essential (primary) hypertensio n [facility] 2025-02-03 12:37 Chronic diastolic (congestive) heart failure [facility] 2025-02-03 12:37 Lymphedema, not elsewhere class ified [facility] 2025-02-03 12:37 Unspecified disorder of circula tory system [facility] 2025-02-03 12:37 Other specified diseases of margarita er [facility] 2025-02-03 12:37 Pressure ulcer of sacral region , stage 2 [facility] 2025-02-03 12:37 Gout, unspecified [facility] 2025-02-03 12:37 Age-related osteopor osis without current pathological fracture [facility] 2025-02-03 12:37 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 [facility] 2025-02-03 12:37 Other mechanical com plication of infusion catheter, initial encounter [facility] 2025-02-03 15:34 Nicotine dependence, unspecifie d, in remission [facility] 2025-02-03 15:34 Major depressive disorder, recu rrent, moderate [facility] 2025-02-03 15:34 Unspecified mononeuropathy of b ilateral lower limbs [facility]25-[facility]-03 15:34 [facility] 2025-02-03 15:34 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 [facility] 2025-02-03 15:34 Lymphedema, not elsewhere class ified [facility] 2025-02-03 15:34 Unspecified disorder of circula tory system [facility] 2025-02-03 15:34 Luis's disease, unspecified s ite [facility] 2025-02-03 15:34 [facility]03 15:34 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 [facility] 2025-02-03 15:34 Other injury of unsp ecified body region, initial encounter [facility] 2025-02-07 10:28 Mood disorder due to known physiological condition with depressive features [facility] 2025-02-07 10:28 Major depressive disorder, [facility]u [facility]rent[facility] 2025-02-07 10:28 Anxiety disorder, unspecified [facility] 2025-02-07 10:28 Post-traumatic stress disorder, unspecified [facility] 2025-02-07 11:04 Mood disorder due to known physiological condition with depressive features [facility] 2025-02-07 11:04 Major depressive disorder, [facility]u [facility]rent[facility] 2025-02-07 11:04 Anxiety disorder, unspecified [facility] 2025-02-07 11:04 Post-traumatic stress disorder, unspecified [facility] 2025-02-07 11:05 Mood disorder due to known physiological condition with depressive features [facility] 2025-02-07 11:05 Major depressive disorder, [facility]u [facility]rent, [facility] 2025-02-07 11:05 An[facility] disorder, unspecified [facility] 2025-02-07 11:05 Post-traumatic stress disorder, unspecified [facility] 2025-02-07 11:06 Mood disorder due to known physiological condition with depressive features [facility] 2025-02-07 11:06 Major depressive disorder, recu rrent, moderate [facility] 2025-02-07 11:06 Anxiety disorder, unspecified [facility] 2025-02-07 11:06 Post-traumatic stress disorder, unspecified [facility] 2025-02-07 11:13 Mood disorder due to known physiological condition with depressive features [facility] 2025-02-07 11:13 Major depressive disorder, recu rrent, moderate [facility] 2025-02-07 11:13 Anxiety disorder, unspecified [facility] 2025-02-07 11:13 Post-traumatic stress disorder, unspecified [facility] 2025-02-10 09:12 Anemia, unspecified [facility] 2025-02-10 09:12 Hypothyroidism, unspecified i [facility] 2025-02-10 09:12 Type 2 diabetes reta itus with unspecified complications [facility] 2025-02-10 09:12 Deficiency of other specified B group vitamins [facility] 2025-02-10 09:12 Hypomagnesemia [facility] 2025-02-10 09:12 Hypocalcemia [facility] 2025-02-10 09:12 Essential (primary) hypertensio n [facility] 2025-02-10 09:12 Chronic diastolic (congestive) heart failure [facility] 2025-02-10 09:12 Lymphedema, not elsewhere class ified [facility] 2025-02-10 09:12 Unspecified disorder of circula tory system [facility] 2025-02-10 09:12 Other specified diseases of margarita er [facility] 2025-02-10 09:12 Pressure ulcer of sacral region , stage 2 [facility] 2025-02-10 09:12 Gout, unspecified [facility] 2025-02-10 09:12 Age-related osteopor osis without current pathological fracture [facility] 2025-02-10 09:12 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 [facility] 2025-02-10 09:12 Other mechanical com plication of infusion catheter, initial encounter [facility] 2025-02-10 09:21 Anemia, unspecified [facility] 2025-02-10 09:21 Hypothyroidism, unspecified [facility] 2025-02-10 09:21 Type 2 diabetes reta itus with unspecified complications [facility] 2025-02-10 09:21 Deficiency of other specified B group vitamins [facility] 2025-02-10 09:21 Hypomagnesemia [facility] 2025-02-10 09:21 Hypocalcemia [facility] 2025-02-10 09:21 Essential (primary) hypertensio n [facility] 2025-02-10 09:21 Chronic diastolic (congestive) heart failure [facility] 2025-02-10 09:21 Lymphedema, not elsewhere class ified [facility] 2025-02-10 09:21 Unspecified disorder of circula tory system [facility] 2025-02-10 09:21 Other specified diseases of margarita er [facility] 2025-02-10 09:21 Pressure ulcer of sacral region , stage 2 [facility] 2025-02-10 09:21 Gout, unspecified [facility] 2025-02-10 09:21 Age-related osteopor osis without current pathological fracture [facility] 2025-02-10 09:21 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 [facility] 2025-02-10 09:21 Other mechanical com plication of infusion catheter, initial encounter [facility] 2025-02-10 09:28 Anemia, unspecified [facility] 2025-02-10 09:28 Hypothyroidism, unspecified i [facility] 2025-02-10 09:28 Type 2 diabetes reta itus with unspecified complications [facility] 2025-02-10 09:28 Deficiency of other specified B group vitamins [facility] 2025-02-10 09:28 Hypomagnesemia [facility] 2025-02-10 09:28 Hypocalcemia [facility] 2025-02-10 09:28 Essential (primary) hypertensio n [facility] 2025-02-10 09:28 Chronic diastolic (congestive) heart failure [facility] 2025-02-10 09:28 Lymphedema, not elsewhere class ified [facility] 2025-02-10 09:28 Unspecified disorder of circula tory system [facility] 2025-02-10 09:28 Other specified diseases of margarita er [facility] 2025-02-10 09:28 Pressure ulcer of sacral region , stage 2 [facility] 2025-02-10 09:28 Gout, unspecified [facility] 2025-02-10 09:28 Age-related osteopor osis without current pathological fracture [facility] 2025-02-10 09:28 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 [facility] 2025-02-10 09:28 Other mechanical com plication of infusion catheter, initial encounter [facility] 2025-02-14 09:11 Mood disorder due to known physiological condition with depressive features [facility] 2025-02-14 09:11 Major depressive disorder, [facility] 09:11 Anxiety disorder, unspecified [facility] 2025-02-14 09:11 Post-traumatic stress disorder, unspecified [facility] 2025-02-14 09:12 Mood disorder due to known physiological condition with depressive features [facility] 2025-02-14 09:12 Major depressive disorder, [facility]u [facility]rent, [facility] 2025-02-14 09:12 Anxiety disorder, unspecified [facility] 2025-02-14 09:12 Post-traumatic stress disorder, unspecified [facility] 2025-02-14 10:01 Mood disorder due to known physiological condition with depressive features [facility] 2025-02-14 10:01 Major depressive disorder, recu rrent, [facility] 2025-02-14 10:01 Anxiety disorder, unspecified [facility] 2025-02-14 10:01 Post-traumatic stress disorder, unspecified [facility] 2025-02-15 08:33 Type 2 diabetes reta itus with unspecified complications [facility] 2025-02-17 11:02 Anemia, unspecified [facility] 2025-02-17 11:02 Hypothyroidism, unspecified [facility] 2025-02-17 11:02 Type 2 diabetes reta itus with unspecified complications [facility] 2025-02-17 11:02 Deficiency of other specified B group vitamins [facility] 2025-02-17 11:02 Hypomagnesemia [facility] 2025-02-17 11:02 Hypocalcemia [facility] 2025-02-17 11:02 Essential (primary) hypertensio n [facility] 2025-02-17 11:02 Chronic diastolic (congestive) heart failure [facility] 2025-02-17 11:02 Lymphedema, not elsewhere [facility] 11:02 Unspecified disorder of circula tory system [facility] 2025-02-17 11:02 Other specified diseases of margarita er [facility] 2025-02-17 11:02 Pressure ulcer of sacral region , stage 2 [facility] 2025-02-17 11:02 Gout, unspecified [facility] 2025-02-17 11:02 Age-related osteopor osis without current pathological fracture [facility] 2025-02-17 11:02 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 [facility] 2025-02-17 11:02 Other mechanical com plication of infusion catheter, initial encounter [facility] 2025-02-17 11:33 Anemia, unspecified [facility] 2025-02-17 11:33 Hypothyroidism, unspecified [facility] 2025-02-17 11:33 Type 2 diabetes reta itus with unspecified complications [facility] 2025-02-17 11:33 Deficiency of other specified B group vitamins [facility] 2025-02-17 11:33 Hypomagnesemia [facility] 2025-02-17 11:33 Hypocalcemia [facility] 2025-02-17 11:33 Essential (primary) hypertensio n [facility] 2025-02-17 11:33 Chronic diastolic (congestive) heart failure [facility] 2025-02-17 11:33 Lymphedema, not elsewhere class [facility]17 11:33 Unspecified disorder of circula tory system [facility] 2025-02-17 11:33 Other specified diseases of margarita er [facility] 2025-02-17 11:33 Pressure ulcer of sacral region , stage 2 [facility] 2025-02-17 11:33 Gout[facility] unspecified [facility] 2025-02-17 11:33 Age-related osteopor osis without current pathological fracture [facility] 2025-02-17 11:33 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 [facility] 2025-02-17 11:33 Other mechanical com plication of infusion catheter, initial encounter [facility] 2025-02-24 11:29 Anemia, unspecified [facility] 2025-02-24 11:29 Hypothyroidism, unspecified i [facility] 2025-02-24 11:29 Type 2 diabetes reta itus with unspecified complications [facility] 2025-02-24 11:29 Deficiency of other specified B group vitamins [facility] 2025-02-24 11:29 Hypomagnesemia [facility] 2025-02-24 11:29 Hypocalcemia [facility] 2025-02-24 11:29 Essential (primary) hypertensio n [facility] 2025-02-24 11:29 Chronic diastolic (congestive) heart failure [facility] 2025-02-24 11:29 Lymphedema, not elsewhere class ified [facility] 2025-02-24 11:29 Unspecified disorder of circula tory system [facility] 2025-02-24 11:29 Other specified diseases of margarita er [facility] 2025-02-24 11:29 Pressure ulcer of sacral region , stage 2 [facility] 2025-02-24 11:29 Gout, unspecified [facility] 2025-02-24 11:29 Age-related osteopor osis without current pathological fracture [facility] 2025-02-24 11:29 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 [facility] 2025-02-24 11:29 Other mechanical com plication of infusion catheter, initial encounter [facility] 2025-02-24 11:46 Anemia, unspecified [facility] 2025-02-24 11:46 Hypothyroidism, unspecified i [facility] 2025-02-24 11:46 Type 2 diabetes reta itus with unspecified complications [facility] 2025-02-24 11:46 Deficiency of other specified B group vitamins [facility] 2025-02-24 11:46 Hypomagnesemia [facility] 2025-02-24 11:46 Hypocalcemia [facility] 2025-02-24 11:46 Essential (primary) hypertensio n [facility] 2025-02-24 11:46 Chronic diastolic (congestive) heart failure [facility] 2025-02-24 11:46 Lymphedema, not elsewhere class ified [facility] 2025-02-24 11:46 Unspecified disorder of circula tory system [facility] 2025-02-24 11:46 Other specified diseases of margarita er [facility] 2025-02-24 11:46 Pressure ulcer of sacral region , stage 2 [facility] 2025-02-24 11:46 Gout, unspecified [facility] 2025-02-24 11:46 Age-related osteopor osis without current pathological fracture [facility] 2025-02-24 11:46 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 [facility] 2025-02-24 11:46 Other mechanical com plication of infusion catheter, initial encounter [facility] 2025-02-24 13:11 Unspecified mononeuropathy of b ilateral lower limbs [facility] 2025-02-27 09:03 Anemia, unspecified [facility] 2025-02-27 09:03 Hypothyroidism, unspecified i [employer] 2025-02-27 09:03 Type 2 diabetes reta itus with unspecified complications [facility] 2025-02-27 09:03 Deficiency of other specified B group vitamins [employer] 2025-02-27 09:03 Hypomagnesemia [facility] 2025-02-27 09:03 Hypocalcemia [facility] 2025-02-27 09:03 Essential (primary) hypertensio n [facility] 2025-02-27 09:03 Chronic diastolic (congestive) heart failure [facility] 2025-02-27 09:03 Lymphedema, not elsewhere class ified [facility] 2025-02-27 09:03 Unspecified disorder of circula tory system [facility] 2025-02-27 09:03 Other specified diseases of margarita er [facility] 2025-02-27 09:03 Pressure ulcer of sacral region , stage 2 [facility] 2025-02-27 09:03 Gout, unspecified [facility] 2025-02-27 09:03 Age-related osteopor osis without current pathological fracture [facility] 2025-02-27 09:03 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 [facility] 2025-02-27 09:03 Other mechanical com plication of infusion catheter, initial encounter [facility] 2025-02-27 09:09 Anemia, unspecified [facility] 2025-02-27 09:09 Hypothyroidism, unspecified i [facility] 2025-02-27 09:09 Type 2 diabetes reta itus with unspecified complications [employer] 2025-02-27 09:09 Deficiency of other specified B group vitamins [facility] 2025-02-27 09:09 Hypomagnesemia [facility] 2025-02-27 09:09 Hypocalcemia [facility] 2025-02-27 09:09 Essential (primary) hypertensio n [facility] 2025-02-27 09:09 Chronic diastolic (congestive) heart failure [facility] 2025-02-27 09:09 Lymphedema, not elsewhere class [facility] 09:09 Unspecified disorder of circula tory system [employer] [facility] 2025-02-27 09:09 Other specified diseases of margarita er [facility] 2025-02-27 09:09 Pressure ulcer of sacral region , stage 2 [facility] 2025-02-27 09:09 Gout, unspecified [facility] 2025-02-27 09:09 Age-related osteopor osis without current pathological fracture [facility] 2025-02-27 09:09 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 [facility] 2025-02-27 09:09 Other mechanical com plication of infusion catheter, initial encounter [facility] 2025-02-27 09:12 Anemia, unspecified [facility] 2025-02-27 09:12 Hypothyroidism, unspecified i [facility] 2025-02-27 09:12 Type 2 diabetes reta itus with unspecified complications [facility] 2025-02-27 09:12 Deficiency of other specified B group vitamins [facility] 2025-02-27 09:12 Hypomagnesemia [facility] 2025-02-27 09:12 Hypocalcemia [facility] 2025-02-27 09:12 Essential (primary) hypertensio n [facility] 2025-02-27 09:12 Chronic diastolic (congestive) heart failure [facility] 2025-02-27 09:12 Lymphedema, not elsewhere class ified [facility] 2025-02-27 09:12 Unspecified disorder of circula tory system [facility] 2025-02-27 09:12 Other specified diseases of margarita er [facility] 2025-02-27 09:12 Pressure ulcer of sacral region , stage 2 [facility] 2025-02-27 09:12 Gout, unspecified [facility] 2025-02-27 09:12 Age-related osteopor osis without current pathological fracture [facility] 2025-02-27 09:12 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 [facility] 2025-02-27 09:12 Other mechanical com plication of infusion catheter, initial encounter [facility] 2025-02-27 09:26 Anemia, unspecified [facility] 2025-02-27 09:26 Hypothyroidism, unspecified i [facility] 2025-02-27 09:26 Type 2 diabetes reta itus with unspecified complications [facility] 2025-02-27 09:26 Deficiency of other specified B group vitamins [facility] 2025-02-27 09:26 Hypomagnesemia [facility] 2025-02-27 09:26 Hypocalcemia [facility] 2025-02-27 09:26 Essential (primary) hypertensio n [facility] 2025-02-27 09:26 Chronic diastolic (congestive) heart failure [facility] 2025-02-27 09:26 Lymphedema, not elsewhere class [facility] 2025-02-27 09:26 Unspecified disorder of circula tory system [facility] 2025-02-27 09:26 Other specified diseases of margarita er [facility] 2025-02-27 09:26 Pressure ulcer of sacral region , stage 2 [facility] 2025-02-27 09:26 Gout, unspecified [facility] 2025-02-27 09:26 Age-related osteopor osis without current pathological fracture [facility] 2025-02-27 09:26 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 [facility] 2025-02-27 09:26 Other mechanical com plication of infusion catheter, initial encounter [facility] 2025-02-27 09:30 Anemia, unspecified [facility] 2025-02-27 09:30 Hypothyroidism, unspecified i [facility] 2025-02-27 09:30 Type 2 diabetes reta itus with unspecified complications [facility] [facility] 2025-02-27 09:30 Deficiency of other specified B group vitamins [facility] 2025-02-27 09:30 Hypomagnesemia [facility] 2025-02-27 09:30 Hypocalcemia [facility] 2025-02-27 09:30 Essential (primary) hypertensio n [facility] 2025-02-27 09:30 Chronic diastolic (congestive) heart failure [facility] 2025-02-27 09:30 Lymphedema, not elsewhere class [facility]27 09:30 Unspecified disorder of circula tory system [facility] 2025-02-27 09:30 Other specified diseases of margarita er [facility] 2025-02-27 09:30 Pressure ulcer of sacral region , stage 2 [facility] 2025-02-27 09:30 Gout, unspecified [facility] 2025-02-27 09:30 Age-related osteopor osis without current pathological fracture [facility] 2025-02-27 09:30 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 [facility] 2025-02-27 09:30 Other mechanical com plication of infusion catheter, initial encounter [facility] 2025-02-27 09:33 Anemia, unspecified [facility] 2025-02-27 09:33 Hypothyroidism, unspecified [facility] 2025-02-27 09:33 Type 2 diabetes reta itus with unspecified complications [facility] 2025-02-27 09:33 Deficiency of other specified B group vitamins [facility] [employer] 2025-02-27 09:33 Hypomagnesemia [facility] 2025-02-27 09:33 Hypocalcemia [facility] [employer] 2025-02-27 09:33 Essential (primary) hypertensio n [facility] 2025-02-27 09:33 Chronic diastolic (congestive) heart failure [facility] 2025-02-27 09:33 Lymphedema, not elsewhere class ified [employer] 2025-02-27 09:33 Unspecified disorder of circula tory system [facility] 2025-02-27 09:33 Other specified diseases of margarita er [employer] 2025-02-27 09:33 Pressure ulcer of sacral region , stage 2 [employer] 2025-02-27 09:33 Gout, unspecified [facility] 2025-02-27 09:33 Age-related osteopor osis without current pathological fracture [employer] 2025-02-27 09:33 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 [employer] 2025-02-27 09:33 Other mechanical com plication of infusion catheter, initial encounter [employer] 2025-02-28 10:12 Mood disorder due to known physiological condition with depressive features [employer] 2025-02-28 10:12 Major depressive disorder, recu rrent, moderate [facility] 2025-02-28 10:12 Anxiety disorder, unspecified [facility] 2025-02-28 10:12 Post-traumatic stress disorder, unspecified [facility] [employer] [facility] 2025-02-28 10:13 Mood disorder due to known physiological condition with depressive features [facility] [employer] 2025-02-28 10:13 Major depressive disorder, recu rrent, moderate [facility] 2025-02-28 10:13 Anxiety disorder, unspecified [facility] 2025-02-28 10:13 Post-traumatic stress disorder, unspecified [facility] 2025-02-28 11:07 Mood disorder due to known physiological condition with depressive features [facility] [employer] 2025-02-28 11:07 Major depressive disorder, recu rrent, moderate [facility] [employer] 2025-02-28 11:07 Anxiety disorder, unspecified W [facility] 2025-02-28 11:07 Post-traumatic stress disorder, unspecified [facility] 2025-03-03 11:25 Anemia, unspecified [facility] 2025-03-03 11:25 Hypothyroidism, unspecified i [facility] 2025-03-03 11:25 Type 2 diabetes reta itus with unspecified complications [employer] 2025-03-03 11:25 Deficiency of other specified B group vitamins [facility] 2025-03-03 11:25 Hypomagnesemia [employer] 2025-03-03 11:25 Hypocalcemia [facility] [employer] 2025-03-03 11:25 Essential (primary) hypertensio n [employer] 2025-03-03 11:25 Chronic diastolic (congestive) heart failure [employer] 2025-03-03 11:25 Lymphedema, not elsewhere class ified [employer] 2025-03-03 11:25 Unspecified disorder of circula tory system [employer] 2025-03-03 11:25 Other specified diseases of margarita er [employer] 2025-03-03 11:25 Pressure ulcer of sacral region , stage 2 [facility] [employer] [facility] 2025-03-03 11:25 Gout, unspecified [facility] 2025-03-03 11:25 Age-related osteopor osis without current pathological fracture [facility] [employer] [facility] 2025-03-03 11:25 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 [employer] 2025-03-03 11:25 Other mechanical com plication of infusion catheter, initial encounter [employer] 2025-03-07 10:10 Mood disorder due to known physiological condition with depressive features [employer] 2025-03-07 10:10 Major depressive disorder, recu rrent, moderate [employer] 2025-03-07 10:10 Anxiety disorder, unspecified [facility] 2025-03-07 10:10 Post-traumatic stress disorder, unspecified [facility] 2025-03-07 10:12 Mood disorder due to known physiological condition with depressive features [facility] [employer] 2025-03-07 10:12 Major depressive disorder, recu rrent, moderate [facility] 2025-03-07 10:12 Anxiety disorder, unspecified [facility] 2025-03-07 10:12 Post-traumatic stress disorder, unspecified [employer] 2025-03-07 11:09 Mood disorder due to known physiological condition with depressive features [employer] 2025-03-07 11:09 Major depressive disorder, recu rrent, moderate [employer] 2025-03-07 11:09 Anxiety disorder, unspecified [facility] 2025-03-07 11:09 Post-traumatic stress disorder, unspecified [employer] 2025-03-10 07:50 Anemia, unspecified [facility] 2025-03-10 07:50 Hypothyroidism, unspecified [facility] 2025-03-10 07:50 Type 2 diabetes reta itus with unspecified complications [employer] 2025-03-10 07:50 Deficiency of other specified B group vitamins [employer] 2025-03-10 07:50 Hypomagnesemia [employer] 2025-03-10 07:50 Hypocalcemia [facility] 2025-03-10 07:50 Essential (primary) hypertensio n [employer] 2025-03-10 07:50 Chronic diastolic (congestive) heart failure [employer] 2025-03-10 07:50 Lymphedema, not elsewhere class ified [employer] 2025-03-10 07:50 Unspecified disorder of circula tory system [employer] 2025-03-10 07:50 Other specified diseases of margarita er [employer] 2025-03-10 07:50 Pressure ulcer of sacral region , stage 2 [employer] 2025-03-10 07:50 Gout, unspecified [facility] 2025-03-10 07:50 Age-related osteopor osis without current pathological fracture [facility] [employer] [facility] 2025-03-10 07:50 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 [facility] [employer] [facility] 2025-03-10 07:50 Other mechanical com plication of infusion catheter, initial encounter [facility] [employer] 2025-03-10 11:17 Anemia, unspecified [facility] 2025-03-10 11:17 Hypothyroidism, unspecified i [facility] 2025-03-10 11:17 Type 2 diabetes reta itus with unspecified complications [employer] 2025-03-10 11:17 Deficiency of other specified B group vitamins [facility] 2025-03-10 11:17 Hypomagnesemia [facility] [employer] 2025-03-10 11:17 Hypocalcemia [facility] [employer] [facility] 2025-03-10 11:17 Essential (primary) hypertensio n [facility] [employer] 2025-03-10 11:17 Chronic diastolic (congestive) heart failure [facility] [employer] 2025-03-10 11:17 Lymphedema, not elsewhere class ified [employer] 2025-03-10 11:17 Unspecified disorder of circula tory system [facility] 2025-03-10 11:17 Other specified diseases of margarita er [facility] [employer] 2025-03-10 11:17 Pressure ulcer of sacral region , stage 2 [employer] 2025-03-10 11:17 Gout, unspecified [facility]-10 11:17 Age-related osteopor osis without current pathological fracture [facility] [employer] 2025-03-10 11:17 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 [employer] 2025-03-10 11:17 Other mechanical com plication of infusion catheter, initial encounter [facility] [employer] 2025-03-10 11:18 Anemia, unspecified [facility] 2025-03-10 11:18 Hypothyroidism, unspecified i [facility] 2025-03-10 11:18 Type 2 diabetes reta itus with unspecified complications [facility] [employer] 2025-03-10 11:18 Deficiency of other specified B group vitamins [facility] [employer] [facility] 2025-03-10 11:18 Hypomagnesemia [facility] [employer] [facility] 2025-03-10 11:18 Hypocalcemia [facility] [employer] [facility] 2025-03-10 11:18 Essential (primary) hypertensio n [facility] [employer] 2025-03-10 11:18 Chronic diastolic (congestive) heart failure [facility] [employer] [facility] 2025-03-10 11:18 Lymphedema, not elsewhere class ified [facility] [employer] 2025-03-10 11:18 Unspecified disorder of circula tory system [facility] [employer] [facility] 2025-03-10 11:18 Other specified diseases of margarita er [employer] 2025-03-10 11:18 Pressure ulcer of sacral region , stage 2 [facility] [employer] [facility] 2025-03-10 11:18 Gout, unspecified [facility] 2025-03-10 11:18 Age-related osteopor osis without current pathological fracture [employer] 2025-03-10 11:18 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 [employer] 2025-03-10 11:18 Other mechanical com plication of infusion catheter, initial encounter [facility] [employer] [facility] 2025-03-14 10:07 Mood disorder due to known physiological condition with depressive features [facility] [employer] 2025-03-14 10:07 Major depressive disorder, recu rrent, moderate [employer] 2025-03-14 10:07 Anxiety disorder, unspecified [facility] 2025-03-14 10:07 Post-traumatic stress disorder, unspecified [employer] 2025-03-14 10:08 Mood disorder due to known physiological condition with depressive features [employer] 2025-03-14 10:08 Major depressive disorder, recu rrent, moderate [employer] 2025-03-14 10:08 Anxiety disorder, unspecified [facility] 2025-03-14 10:08 Post-traumatic stress disorder, unspecified [employer] 2025-03-14 11:14 Mood disorder due to known physiological condition with depressive features [facility] [employer] [facility] 2025-03-14 11:14 Major depressive disorder, recu rrent, moderate [employer] 2025-03-14 11:14 Anxiety disorder, unspecified [facility] 2025-03-14 11:14 Post-traumatic stress disorder, unspecified [facility] 2025-03-17 11:34 Anemia, unspecified [facility] 2025-03-17 11:34 Hypothyroidism, unspecified i [facility] 2025-03-17 11:34 Type 2 diabetes reta itus with unspecified complications [facility] [employer] 2025-03-17 11:34 Deficiency of other specified B group vitamins [facility] [employer] 2025-03-17 11:34 Hypomagnesemia [facility] [employer] 2025-03-17 11:34 Hypocalcemia [facility] [employer] 2025-03-17 11:34 Essential (primary) hypertensio n [facility] [employer] 2025-03-17 11:34 Chronic diastolic (congestive) heart failure [facility] [employer] 2025-03-17 11:34 Lymphedema, not elsewhere class ified [employer] 2025-03-17 11:34 Unspecified disorder of circula tory system [employer] 2025-03-17 11:34 Other specified diseases of margarita er [employer] 2025-03-17 11:34 Pressure ulcer of sacral region , stage 2 [employer] 2025-03-17 11:34 Gout, unspecified [facility] 2025-03-17 11:34 Age-related osteopor osis without current pathological fracture [employer] 2025-03-17 11:34 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 [employer] 2025-03-17 11:34 Other mechanical com plication of infusion catheter, initial encounter [employer] 2025-03-17 12:05 Anemia, unspecified [facility] 2025-03-17 12:05 Hypothyroidism, unspecified i [employer] 2025-03-17 12:05 Type 2 diabetes reta itus with unspecified complications [facility] 2025-03-17 12:05 Deficiency of other specified B group vitamins [employer] 2025-03-17 12:05 Hypomagnesemia [facility] 2025-03-17 12:05 Hypocalcemia [facility] [employer] 2025-03-17 12:05 Essential (primary) hypertensio n [facility] 2025-03-17 12:05 Chronic diastolic (congestive) heart failure [facility] 2025-03-17 12:05 Lymphedema, not elsewhere class ified [facility] 2025-03-17 12:05 Unspecified disorder of circula tory system [facility] 2025-03-17 12:05 Other specified diseases of margarita er [facility] 2025-03-17 12:05 Pressure ulcer of sacral region , stage 2 [facility] 2025-03-17 12:05 Gout, unspecified [facility] 2025-03-17 12:05 Age-related osteopor osis without current pathological fracture [facility] 2025-03-17 12:05 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 [facility] 2025-03-17 12:05 Other mechanical com plication of infusion catheter, initial encounter [facility] 2025-03-17 12:51 Unspecified mononeuropathy of b ilateral lower limbs [facility] 2025-03-17 12:51 Other chronic pain [facility] 2025-03-17 12:51 [facility]-17 12:51 Pain in right knee [facility] 2025-03-17 12:51 Pain in left knee [facility] 2025-03-17 12:51 Deforming dorsopathy, unspecifi ed [facility] 2025-03-17 12:51 Spinal stenosis, lumbosacral re gion [facility] 2025-03-17 12:51 Lumbago with sciatica, right si de [facility] 2025-03-17 12:51 Muscle weakness (generalized) [facility] 2025-03-19 20:23 Unspecified mononeuropathy of b ilateral lower limbs [facility] 2025-03-19 20:23 Other chronic pain [facility] 2025-03-19 20:23 [facility] 2025-03-19 20:23 Pain in right knee [facility] 2025-03-19 20:23 Pain in left knee [facility] 2025-03-19 20:23 Deforming dorsopathy, unspecifi ed [facility] [employer] 2025-03-19 20:23 Spinal stenosis, lumbosacral re gion [facility] 2025-03-19 20:23 Lumbago with sciatica, right si de [facility] 2025-03-19 20:23 [facility]generalized) [facility] 2025-03-20 16:22 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 [facility] [employer] 2025-03-23 16:09 Anemia, unspecified [facility] 2025-03-23 16:09 Hypothyroidism, unspecified i [facility] 2025-03-23 16:09 Type 2 diabetes reta itus with unspecified complications [facility] [employer] 2025-03-23 16:09 Deficiency of other specified B group vitamins [facility] [employer] 2025-03-23 16:09 Hypomagnesemia [facility] [employer] 2025-03-23 16:09 Hypocalcemia [facility] [employer] 2025-03-23 16:09 Essential (primary) hypertensio n [facility] [employer] 2025-03-23 16:09 Chronic diastolic (congestive) heart failure [facility] [employer] 2025-03-23 16:09 Lymphedema, not elsewhere class ified [facility] [employer] 2025-03-23 16:09 Unspecified disorder of circula tory system [facility] [employer] [facility] 2025-03-23 16:09 Other specified diseases of margarita er [facility] [employer] [facility] 2025-03-23 16:09 Pressure ulcer of sacral region , stage 2 [facility] [employer] [facility] 2025-03-23 16:09 Gout, unspecified [facility] 2025-03-23 16:09 Age-related osteopor osis without current pathological fracture [facility] [employer] 2025-03-23 16:09 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 [facility] 2025-03-23 16:09 Other mechanical com plication of infusion catheter, initial encounter [facility] [employer] [facility] 2025-03-24 11:15 Anemia, unspecified [employer] [facility] 2025-03-24 11:15 Hypothyroidism, unspecified i [facility] 2025-03-24 11:15 Type 2 diabetes reta itus with unspecified complications [facility] [employer] 2025-03-24 11:15 Deficiency of other specified B group vitamins [facility] 2025-03-24 11:15 Hypomagnesemia [facility] 2025-03-24 11:15 Hypocalcemia [facility] 2025-03-24 11:15 Essential (primary) hypertensio n [employer] [facility] 2025-03-24 11:15 Chronic diastolic (congestive) heart failure [facility] [employer] 2025-03-24 11:15 Lymphedema, not elsewhere [facility] 11:15 Unspecified disorder of circula tory system [facility] [employer] 2025-03-24 11:15 Other specified diseases of margarita er [facility] [employer] 2025-03-24 11:15 Pressure ulcer of sacral region , stage 2 [facility] [employer] [facility] 2025-03-24 11:15 Gout, unspecified [facility] 2025-03-24 11:15 Age-related osteopor osis without current pathological fracture [employer] 2025-03-24 11:15 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 [employer] 2025-03-24 11:15 Other mechanical com plication of infusion catheter, initial encounter [employer] 2025-03-31 07:43 Anemia, unspecified [facility] 2025-03-31 07:43 Hypothyroidism, unspecified [facility] [employer] 2025-03-31 07:43 Type 2 diabetes reta itus with unspecified complications [facility] 2025-03-31 07:43 Deficiency of other specified B group vitamins [facility] 2025-03-31 07:43 Hypomagnesemia [employer] 2025-03-31 07:43 Hypocalcemia [facility] 2025-03-31 07:43 Essential (primary) hypertensio n [employer] 2025-03-31 07:43 Chronic diastolic (congestive) heart failure [employer] 2025-03-31 07:43 Lymphedema, not elsewhere class [facility] [employer] 2025-03-31 07:43 Unspecified disorder of circula tory system [employer] 2025-03-31 07:43 Other specified diseases of margarita er [employer] 2025-03-31 07:43 Pressure ulcer of sacral region , stage 2 [facility] [employer] 2025-03-31 07:43 Gout, unspecified [facility] 2025-03-31 07:43 Age-related osteopor osis without current pathological fracture [facility] 2025-03-31 07:43 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 [facility] 2025-03-31 07:43 Other mechanical com plication of infusion catheter, initial encounter [employer] 2025-03-31 11:23 Anemia, unspecified [facility] 2025-03-31 11:23 Hypothyroidism, unspecified i [facility] 2025-03-31 11:23 Type 2 diabetes reta itus with unspecified complications [employer] 2025-03-31 11:23 Deficiency of other specified B group vitamins [facility] 2025-03-31 11:23 Hypomagnesemia [employer] 2025-03-31 11:23 Hypocalcemia [facility] 2025-03-31 11:23 Essential (primary) hypertensio n [employer] 2025-03-31 11:23 Chronic diastolic (congestive) heart failure [facility] 2025-03-31 11:23 Lymphedema, not elsewhere class ified [employer] 2025-03-31 11:23 Unspecified disorder of circula tory system [employer] 2025-03-31 11:23 Other specified diseases of margarita er [employer] 2025-03-31 11:23 Pressure ulcer of sacral region , stage 2 [employer] 2025-03-31 11:23 Gout, unspecified [facility] 2025-03-31 11:23 Age-related osteopor osis without current pathological fracture [facility] 2025-03-31 11:23 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 [employer] 2025-03-31 11:23 Other mechanical com plication of infusion catheter, initial encounter [employer] 2025-04-04 12:22 Sepsis, unspecified organism Wh [employer] 2025-04-04 12:22 Anemia, unspecified [facility] 2025-04-04 12:22 Type 2 diabetes mellitus withou t complications [facility] 2025-04-04 12:22 Iron deficiency [facility] 2025-04-04 12:22 [facility] 2025-04-04 12:22 Chronic pain syndrome [facility] 2025-04-04 12:22 Metabolic encephalopathy [facility] 2025-04-04 12:22 Chronic obstructive pulmonary disease with (acute) exacerbation [facility] 2025-04-04 12:22 Acute respiratory failure with hypoxia [facility] 2025-04-04 12:22 Acute cystitis without hematuri a [facility] 2025-04-04 12:22 Cough, unspecified [facility] 2025-04-04 12:22 Shortness of breath [facility] 2025-04-04 12:22 Wheezing [facility] 2025-04-04 12:22 Lower abdominal pain, unspecifi ed [facility] 2025-04-04 12:22 Nausea with vomiting, unspecifi ed [facility] 2025-04-04 12:22 Fever, unspecified [facility] 2025-04-04 12:22 Weakness [facility] 2025-04-04 12:22 Severe sepsis without septic sh ock [facility] 2025-04-04 12:22 Personal history of other endocrine, nutritional and metabolic disease [facility] 2025-04-12 15:39 Anemia, unspecified yoni [facility] 2025-04-12 15:39 Hypothyroidism, unspecified [facility] 2025-04-12 15:39 Type 2 diabetes reta itus with unspecified complications [facility] 2025-04-12 15:39 Deficiency of other specified B group vitamins [facility] 2025-04-12 15:39 Hypomagnesemia [facility] 2025-04-12 15:39 Hypocalcemia [facility] 2025-04-12 15:39 Essential (primary) hypertensio n [facility] 2025-04-12 15:39 Chronic diastolic (congestive) heart failure [facility] [employer] [facility] 2025-04-12 15:39 Lymphedema, not elsewhere [facility]12 15:39 Unspecified disorder of circula tory system [facility] 2025-04-12 15:39 Other specified diseases of margarita er [facility] 2025-04-12 15:39 Pressure ulcer of sacral region , stage 2 [employer] 2025-04-12 15:39 Gout, unspecified [facility] 2025-04-12 15:39 Age-related osteopor osis without current pathological fracture [facility] 2025-04-12 15:39 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 [employer] 2025-04-12 15:39 Other mechanical com plication of infusion catheter, initial encounter [employer] 2025-04-13 00:02 Pain in right toe(s) [employer] [facility] 2025-04-14 11:40 Anemia, unspecified [facility] 2025-04-14 11:40 Hypothyroidism, unspecified i [employer] [facility] 2025-04-14 11:40 Type 2 diabetes reta itus with unspecified complications [employer] 2025-04-14 11:40 Deficiency of other specified B group vitamins [employer] 2025-04-14 11:40 Hypomagnesemia [employer] 2025-04-14 11:40 Hypocalcemia [employer] 2025-04-14 11:40 Essential (primary) hypertensio n [employer] 2025-04-14 11:40 Chronic diastolic (congestive) heart failure [employer] 2025-04-14 11:40 Lymphedema, not elsewhere class [facility] [employer] 2025-04-14 11:40 Unspecified disorder of circula tory system [employer] 2025-04-14 11:40 Other specified diseases of margarita er [employer] 2025-04-14 11:40 Pressure ulcer of sacral region , stage 2 [employer] 2025-04-14 11:40 Gout, unspecified [facility] 2025-04-14 11:40 Age-related osteopor osis without current pathological fracture [employer] 2025-04-14 11:40 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 [employer] 2025-04-14 11:40 Other mechanical com plication of infusion catheter, initial encounter [employer] 2025-04-19 09:30 Anemia, unspecified [facility] 2025-04-19 09:30 Hypothyroidism, unspecified i [facility] 2025-04-19 09:30 Type 2 diabetes reta itus with unspecified complications [employer] 2025-04-19 09:30 Deficiency of other specified B group vitamins [employer] 2025-04-19 09:30 Hypomagnesemia [employer] 2025-04-19 09:30 Hypocalcemia [employer] 2025-04-19 09:30 Essential (primary) hypertensio n [employer] 2025-04-19 09:30 Chronic diastolic (congestive) heart failure [employer] 2025-04-19 09:30 Lymphedema, not elsewhere class ified [employer] 2025-04-19 09:30 Unspecified disorder of circula tory system [employer] 2025-04-19 09:30 Other specified diseases of margarita er [employer] 2025-04-19 09:30 Pressure ulcer of sacral region , stage 2 [employer] 2025-04-19 09:30 Gout, unspecified [facility] 2025-04-19 09:30 Age-related osteopor osis without current pathological fracture [employer] 2025-04-19 09:30 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 [employer] 2025-04-19 09:30 Other mechanical com plication of infusion catheter, initial encounter [employer] 2025-04-19 09:35 Anemia, unspecified [facility] 2025-04-19 09:35 Hypothyroidism, unspecified i [employer] 2025-04-19 09:35 Type 2 diabetes reta itus with unspecified complications [employer] 2025-04-19 09:35 Deficiency of other specified B group vitamins [employer] 2025-04-19 09:35 Hypomagnesemia [employer] 2025-04-19 09:35 Hypocalcemia [employer] 2025-04-19 09:35 Essential (primary) hypertensio n [employer] 2025-04-19 09:35 Chronic diastolic (congestive) heart failure [facility] [employer] [facility] 2025-04-19 09:35 Lymphedema, not [facility] 09:35 Unspecified disorder of circula tory system [employer] 2025-04-19 09:35 Other specified diseases of margarita er [employer] 2025-04-19 09:35 Pressure ulcer of sacral region , stage 2 [employer] 2025-04-19 09:35 Gout, unspecified [facility] 2025-04-19 09:35 Age-related osteopor osis without current pathological fracture [employer] 2025-04-19 09:35 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 [employer] 2025-04-19 09:35 Other mechanical com plication of infusion catheter, initial encounter [employer] 2025-04-19 11:57 Anemia, unspecified [facility] 2025-04-19 11:57 Hypothyroidism, unspecified [facility] [employer] 2025-04-19 11:57 Type 2 diabetes reta itus with unspecified complications [employer] 2025-04-19 11:57 Deficiency of other specified B group vitamins [employer] 2025-04-19 11:57 Hypomagnesemia [employer] 2025-04-19 11:57 Hypocalcemia [employer] 2025-04-19 11:57 Essential (primary) hypertensio n [employer] 2025-04-19 11:57 Chronic diastolic (congestive) heart failure [employer] 2025-04-19 11:57 Lymphedema, not elsewhere class [facility] [employer] 2025-04-19 11:57 Unspecified disorder of circula tory system [employer] 2025-04-19 11:57 Other specified diseases of margarita er [employer] 2025-04-19 11:57 Pressure ulcer of sacral region , stage 2 [employer] 2025-04-19 11:57 Gout, unspecified [facility] 2025-04-19 11:57 Age-related osteopor osis without current pathological fracture [employer] 2025-04-19 11:57 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 [employer] 2025-04-19 11:57 Other mechanical com plication of infusion catheter, initial encounter [employer] 2025-04-19 12:02 Anemia, unspecified [facility] 2025-04-19 12:02 Hypothyroidism, unspecified i [facility] 2025-04-19 12:02 Type 2 diabetes reta itus with unspecified complications [employer] 2025-04-19 12:02 Deficiency of other specified B group vitamins [employer] 2025-04-19 12:02 Hypomagnesemia [employer] 2025-04-19 12:02 Hypocalcemia [employer] 2025-04-19 12:02 Essential (primary) hypertensio n [employer] 2025-04-19 12:02 Chronic diastolic (congestive) heart failure [employer] 2025-04-19 12:02 Lymphedema, not elsewhere class ified [employer] 2025-04-19 12:02 Unspecified disorder of circula tory system [employer] 2025-04-19 12:02 Other specified diseases of margarita er [employer] 2025-04-19 12:02 Pressure ulcer of sacral region , stage 2 [employer] 2025-04-19 12:02 [facility]out, unspecified [facility] 2025-04-19 12:02 Age-related osteopor osis without current pathological fracture [employer] 2025-04-19 12:02 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 [employer] 2025-04-19 12:02 Other mechanical com plication of infusion catheter, initial encounter [employer] 2025-04-19 12:05 Anemia, unspecified [facility] 2025-04-19 12:05 Hypothyroidism, unspecified Changel[facility] 2025-04-19 12:05 Type 2 diabetes reta itus with unspecified complications [employer] 2025-04-19 12:05 Deficiency of other specified B group vitamins [employer] 2025-04-19 12:05 [facility]omagnesemia [facility] 2025-04-19 12:05 Hypocalcemia [facility] 2025-04-19 12:05 Essential (primary) hypertensio n [facility] 2025-04-19 12:05 Chronic diastolic (congestive) heart failure [facility] 2025-04-19 12:05 Lymphedema, not elsewhere class [facility] 2025-04-19 12:05 Unspecified disorder of circula tory system [facility] 2025-04-19 12:05 Other specified diseases of margarita er [facility] 2025-04-19 12:05 Pressure ulcer of sacral region , stage 2 [facility] [employer] [facility] 2025-04-19 12:05 Gout, unspecified [facility] 2025-04-19 12:05 Age-related osteopor osis without current pathological fracture [facility] [employer] [facility] 2025-04-19 12:05 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 [facility] 2025-04-19 12:05 Other mechanical com plication of infusion catheter, initial encounter [facility] [employer] [facility] 2025-04-19 13:34 Anemia, unspecified [facility] 2025-04-19 13:34 Hypothyroidism, unspecified i [facility] [employer] 2025-04-19 13:34 Type 2 diabetes reta itus with unspecified complications [facility] 2025-04-19 13:34 Deficiency of other specified B group vitamins [facility] [employer] [facility] 2025-04-19 13:34 Hypomagnesemia [facility] 2025-04-19 13:34 Hypocalcemia [facility] 2025-04-19 13:34 Essential (primary) hypertensio n [facility] 2025-04-19 13:34 Chronic diastolic (congestive) heart failure [facility] [employer] 2025-04-19 13:34 Lymphedema, not elsewhere [facility] 2025-04-19 13:34 Unspecified disorder of circula tory system [facility] 2025-04-19 13:34 Other specified diseases of margarita er [facility] 2025-04-19 13:34 Pressure ulcer of sacral region , stage 2 [facility] [employer] 2025-04-19 13:34 Gout, unspecified [facility] 2025-04-19 13:34 Age-related osteopor osis without current pathological fracture [facility] [employer] 2025-04-19 13:34 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 [facility] 2025-04-19 13:34 Other mechanical com plication of infusion catheter, initial encounter [facility] [employer] 2025-04-19 13:37 Anemia, unspecified [facility] 2025-04-19 13:37 Hypothyroidism, unspecified i [facility] 2025-04-19 13:37 Type 2 diabetes reta itus with unspecified complications [facility] [employer] [facility] 2025-04-19 13:37 Deficiency of other specified B group vitamins [facility] 2025-04-19 13:37 Hypomagnesemia [facility] 2025-04-19 13:37 Hypocalcemia [facility] [employer] [facility] 2025-04-19 13:37 Essential (primary) hypertensio n [facility] [employer] 2025-04-19 13:37 Chronic diastolic (congestive) heart failure [facility] [employer] [facility] 2025-04-19 13:37 Lymphedema, not elsewhere class ified [employer] 2025-04-19 13:37 Unspecified disorder of circula tory system [facility] [employer] 2025-04-19 13:37 Other specified diseases of margarita er [facility] [employer] [facility] 2025-04-19 13:37 Pressure ulcer of sacral region , stage 2 [employer] 2025-04-19 13:37 Gout, unspecified [facility] 2025-04-19 13:37 Age-related osteopor osis without current pathological fracture [facility] [employer] [facility] 2025-04-19 13:37 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 [employer] 2025-04-19 13:37 Other mechanical com plication of infusion catheter, initial encounter [facility] [employer] 2025-04-19 13:41 Anemia, unspecified [facility] 2025-04-19 13:41 Hypothyroidism, unspecified i [facility] 2025-04-19 13:41 Type 2 diabetes reta itus with unspecified complications [facility] [employer] 2025-04-19 13:41 Deficiency of other specified B group vitamins [facility] 2025-04-19 13:41 Hypomagnesemia [facility] 2025-04-19 13:41 Hypocalcemia [facility] 2025-04-19 13:41 Essential (primary) hypertensio n [facility] 2025-04-19 13:41 Chronic diastolic (congestive) heart failure [facility] 2025-04-19 13:41 Lymphedema, not elsewhere class [facility] 2025-04-19 13:41 Unspecified disorder of circula tory system [facility] 2025-04-19 13:41 Other specified diseases of margarita er [employer] 2025-04-19 13:41 Pressure ulcer of sacral region , stage 2 [facility] [employer] [facility] 2025-04-19 13:41 Gout, unspecified [facility] 2025-04-19 13:41 Age-related osteopor osis without current pathological fracture [facility] [employer] 2025-04-19 13:41 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 [facility] [employer] [facility] 2025-04-19 13:41 Other mechanical com plication of infusion catheter, initial encounter [facility] [employer] [facility] 2025-04-19 13:44 Anemia, unspecified [facility] 2025-04-19 13:44 Hypothyroidism, unspecified i [facility] 2025-04-19 13:44 Type 2 diabetes reta itus with unspecified complications [facility] [employer] [facility] 2025-04-19 13:44 Deficiency of other specified B group vitamins [facility] 2025-04-19 13:44 Hypomagnesemia [facility] 2025-04-19 13:44 Hypocalcemia [facility] [employer] 2025-04-19 13:44 Essential (primary) hypertensio n [employer] [facility] 2025-04-19 13:44 Chronic diastolic (congestive) heart failure [facility] [employer] 2025-04-19 13:44 Lymphedema, not elsewhere class [facility] 2025-04-19 13:44 Unspecified disorder of circula tory system [facility] 2025-04-19 13:44 Other specified diseases of margarita er [employer] [facility] 2025-04-19 13:44 Pressure ulcer of sacral region , stage 2 [facility] 2025-04-19 13:44 Gout, unspecified [facility] 2025-04-19 13:44 Age-related osteopor osis without current pathological fracture [facility] 2025-04-19 13:44 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 [facility] 2025-04-19 13:44 Other mechanical com plication of infusion catheter, initial encounter [facility] 2025-04-21 08:42 Other chronic pain [facility] 2025-04-21 08:42 Pain in right knee [facility] 2025-04-21 08:42 Pain in left knee [facility] 2025-04-21 08:42 Deforming dorsopathy, unspecifi ed [facility] 2025-04-21 08:42 Lumbago with sciatica, right si de [facility] 2025-04-21 08:42 Muscle weakness (generalized) [facility] 2025-04-21 11:20 Anemia, unspecified [facility] 2025-04-21 11:20 Hypothyroidism, unspecified [facility] 2025-04-21 11:20 Type 2 diabetes reta itus with unspecified complications [facility] 2025-04-21 11:20 Deficiency of other specified B group vitamins [facility] 2025-04-21 11:20 Hypomagnesemia [facility] 2025-04-21 11:20 [facility]ocalcemia [facility] 2025-04-21 11:20 Essential (primary) hypertensio n [facility] 2025-04-21 11:20 Chronic diastolic (congestive) heart failure [facility] 2025-04-21 11:20 Lymphedema, not elsewhere class ified [facility] 2025-04-21 11:20 Unspecified disorder of circula tory system [facility] 2025-04-21 11:20 Other specified diseases of margarita er [facility] 2025-04-21 11:20 Pressure ulcer of sacral region , stage 2 [facility] 2025-04-21 11:20 Gout, unspecified [facility] 2025-04-21 11:20 Age-related osteopor osis without current pathological fracture [facility] [employer] 2025-04-21 11:20 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 [facility] 2025-04-21 11:20 Other mechanical com plication of infusion catheter, initial encounter [facility] 2025-04-21 11:55 Pain in right toe(s) [facility] 2025-04-21 12:45 Anemia, unspecified [facility] 2025-04-21 12:45 Hypothyroidism, unspecified i [facility] 2025-04-21 12:45 Type 2 diabetes reta itus with unspecified complications [facility] 2025-04-21 12:45 Deficiency of other specified B group vitamins [facility] 2025-04-21 12:45 Hypomagnesemia [facility] 2025-04-21 12:45 Hypocalcemia [facility] [employer] 2025-04-21 12:45 Essential (primary) hypertensio n [facility] [employer] 2025-04-21 12:45 Chronic diastolic (congestive) heart failure [facility] 2025-04-21 12:45 Lymphedema, not elsewhere class ified [facility] [employer] 2025-04-21 12:45 Unspecified disorder of circula tory system [facility] [employer] [facility] 2025-04-21 12:45 Other specified diseases of margarita er [facility] [employer] [facility] 2025-04-21 12:45 Pressure ulcer of sacral region , stage 2 [facility] [employer] [facility] 2025-04-21 12:45 Gout, unspecified [facility] 2025-04-21 12:45 Age-related osteopor osis without current pathological fracture [facility] 2025-04-21 12:45 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 [facility] [employer] 2025-04-21 12:45 Other mechanical com plication of infusion catheter, initial encounter [facility] 2025-04-21 12:46 Anemia, unspecified [facility] 2025-04-21 12:46 Hypothyroidism, unspecified i [facility] 2025-04-21 12:46 Type 2 diabetes reta itus with unspecified complications [facility] [employer] 2025-04-21 12:46 Deficiency of other specified B group vitamins [facility] 2025-04-21 12:46 Hypomagnesemia [facility] 2025-04-21 12:46 Hypocalcemia [facility] 2025-04-21 12:46 Essential (primary) hypertensio n [facility] 2025-04-21 12:46 Chronic diastolic (congestive) heart failure [facility] 2025-04-21 12:46 Lymphedema, not elsewhere class [facility] 2025-[facility]-21 12:46 Unspecified disorder of circula tory system [facility] 2025-04-21 12:46 Other specified diseases of margarita er [facility] [employer] [facility] 2025-04-21 12:46 Pressure ulcer of sacral region , stage 2 [facility] 2025-04-21 12:46 Gout, unspecified [facility] 2025-04-21 12:46 Age-related osteopor osis without current pathological fracture [facility] [employer] 2025-04-21 12:46 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 [facility] [employer] 2025-04-21 12:46 Other mechanical com plication of infusion catheter, initial encounter [facility] [employer] 2025-04-21 16:41 Pain in right toe(s) [facility] 2025-04-22 00:03 Pain in right toe(s) [facility] 2025-04-26 08:35 Unspecified abdominal pain [facility] [employer] 2025-04-27 15:13 Generalized abdominal pain [facility] [employer] 2025-04-28 11:22 Anemia, unspecified [facility] 2025-04-28 11:22 Hypothyroidism, unspecified i [facility] 2025-04-28 11:22 Type 2 diabetes reta itus with unspecified complications [facility] [employer] 2025-04-28 11:22 Deficiency of other specified B group vitamins [facility] 2025-04-28 11:22 Hypomagnesemia [facility] 2025-04-28 11:22 Hypocalcemia [facility] 2025-04-28 11:22 Essential (primary) hypertensio n [facility] 2025-04-28 11:22 Chronic diastolic (congestive) heart failure [employer] 2025-04-28 11:22 Lymphedema, not elsewhere class ified [employer] 2025-04-28 11:22 Unspecified disorder of circula tory system [employer] 2025-04-28 11:22 Other specified diseases of margarita er [employer] 2025-04-28 11:22 Pressure ulcer of sacral region , stage 2 [employer] 2025-04-28 11:22 Gout, unspecified [facility] 2025-04-28 11:22 Age-related osteopor osis without current pathological fracture [employer] 2025-04-28 11:22 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 [employer] 2025-04-28 11:22 Other mechanical com plication of infusion catheter, initial encounter [employer] 2025-04-28 11:26 Anemia, unspecified [facility] 2025-04-28 11:26 Hypothyroidism, unspecified i [facility] 2025-04-28 11:26 Type 2 diabetes reta itus with unspecified complications [employer] 2025-04-28 11:26 Deficiency of other specified B group vitamins [employer] 2025-04-28 11:26 Hypomagnesemia [employer] 2025-04-28 11:26 Hypocalcemia [employer] 2025-04-28 11:26 Essential (primary) hypertensio n [employer] 2025-04-28 11:26 Chronic diastolic (congestive) heart failure [employer] 2025-04-28 11:26 Lymphedema, not elsewhere [facility]28 11:26 Unspecified disorder of circula tory system [employer] 2025-04-28 11:26 Other specified diseases of margarita er [employer] 2025-04-28 11:26 Pressure ulcer of sacral region , stage 2 [employer] 2025-04-28 11:26 Gout, unspecified [facility] 2025-04-28 11:26 Age-related osteopor osis without current pathological fracture [employer] 2025-04-28 11:26 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 [employer] 2025-04-28 11:26 Other mechanical com plication of infusion catheter, initial encounter [employer] 2025-05-02 21:05 Mood disorder due to known physiological condition with depressive features [employer] 2025-05-02 21:05 Major depressive disorder, recu rrent, moderate [employer] 2025-05-02 21:05 Anxiety disorder, unspecified [facility] [employer] 2025-05-02 21:05 Post-traumatic stress disorder, unspecified [employer] Results/Labs test date facility value unit notes Result panel 1 BILIRUBIN,TOTAL 2025-02-03 11:15 [employer] 0.3 mg /dl As of December 2022 testing method has changed, this may include reference ranges. CREATININE 2025-02-03 11:15 [employer] 0.7 mg/dl As of December 2022 testing method has changed, this may include reference ranges. MAGNESIUM 2025-02-03 11:15 [employer] 1.3 mg/dl As of December 2022 testing method has changed, this may include reference ranges. ALBUMIN/GLOBULIN RATIO 2025-02-03 11:15 [employer] 1.5 (missing) (missing) ALT ALANINE AMINOTRANSFERASE 2025-02-03 11:15 [facility] 10 iu/l As of December 2022 testing method has changed, this may include reference ranges. SODIUM 2025-02-03 11:15 [employer] 134 mmol/l No AST ASPARTATE AMINOTRANSFERASE 2025-02-03 11:15 [employer] 15 iu/l As of December 2022 testing method has changed, this may include reference ranges. BUN - BLOOD UREA NITROGEN 2025-02-03 11:15 [facility] 17 mg/dl As of Dec testing method has changed, this may include reference ranges. GLOBULIN 2025-02-03 11:15 [employer] 2.8 g/dl (missing) CARBON DIOXIDE - CO2 2025-02-03 11:15 [employer] 30 mmol/l As of December 2022 testing method has changed, this may include reference ranges. POTASSIUM 2025-02-03 11:15 [employer] 4.0 mmol/l As of December 2022 testing method has changed, this may include reference ranges. ALBUMIN 2025-02-03 11:15 [employer] 4.2 g/dl As of December 2022 testing method has changed, this may include reference ranges. TOTAL PROTEIN 2025-02-03 11:15 [employer] 7.0 g/dl As of December 2022 testing method has changed, this may include reference ranges. ANION GAP 2025-02-03 11:15 [employer] 8.0 (missing ) (missing) GFR - MDRD 2025-02-03 11:15 [employer] 83 (in g) The IDMS-traceable MDRD Study Equation has [...] last updated August 2011. CALCIUM 2025-02-03 11:15 [employer] 9.1 mg/dl As of December 2022 testing method has changed, this may include reference ranges. ALKALINE PHOSPHATASE 2025-02-03 11:15 [facility] 95 iu/l As of December 2022 testing method has changed, this may include reference ranges. GLUCOSE 2025-02-03 11:15 [facility] 95 mg/dl As of December 2022 testing method has changed, this may include reference ranges. CHLORIDE 2025-02-03 11:15 [facility] 96 mmol/l As of December 2022 testing method has changed, this may include reference ranges. Result panel 2 NUCLEATED RED BLOOD CELLS AUTO 2025-02-17 11:30 [facility] 0.0 /100wbc (missing) NRBC ABSOLUTE COUNT (AUTO) 2025-02-17 11:30 [facility] 0.00 x10 3/ul (missing) BASOPHILS # (AUTO) 2025-02-17 11:30 [facility] 0.1 10 3/ul (missing) EOSINOPHILS # (AUTO) 2025-02-17 11:30 [facility] 0.3 10 3/ul (missing) BILIRUBIN,TOTAL 2025-02-17 11:30 [facility] 0.4 mg/dl As of December 2022 testing method has changed, this may include reference ranges. CREATININE 2025-02-17 11:30 [facility] 0.6 mg/dl As of December 2022 testing method has changed, this may include reference ranges. MONOCYTES # (AUTO) 2025-02-17 11:30 [facility] 0.7 10 3/ul (missing) MAGNESIUM 2025-02-17 11:30 [facility] 1.0 mg/dl Critical result MG 1.0 mg/dL called to and read back by LORRAINE Tomlin/LJ/MAC at 17-Feb-2025 12:17 by denise. As of December 2022 testing method has changed, this may include reference ranges. ALBUMIN/GLOBULIN RATIO 2025-02-17 11:30 [facility] 1.5 (missing) (missing) LYMPHOCYTES # (AUTO) 2025-02-17 11:30 [facility] 1.6 10 3/ul (missing) AST ASPARTATE AMINOTRANSFERASE 2025-02-17 11:30 [facility] 12 iu/l As of December 2022 testing method has changed, this may include reference ranges. GLUCOSE 2025-02-17 11:30 [facility] 126 mg/dl As of December 2022 testing method has changed, this may include reference ranges. HGB - HEMOGLOBIN 2025-02-17 11:30 [facility] 13.0 g/dl (missing) SODIUM 2025-02-17 11:30 [facility] 136 mmol/l Unknown % IRON SATURATION 2025-02-17 11:30 [facility] 15 % (missing) RED CELL DISTRIBUTION WIDTH 2025-02-17 11:30 [facility] 15.5 % (missing) BUN - BLOOD UREA NITROGEN 2025-02-17 11:30 [facility] 19 mg/dl As of December 2022 testing method has changed, this may include reference ranges. GLOBULIN 2025-02-17 11:30 [facility] 2.8 g/dl (missing) MEAN CORPUSCULAR HEMOGLOBIN 2025-02-17 11:30 [facility] 29.0 pg (missing) POTASSIUM 2025-02-17 11:30 [facility] 3.9 mmol/l As of December 2022 testing method has changed, this may include reference ranges. MEAN CORPUSCULAR HGB CONC 2025-02-17 11:30 [facility] 31.5 g/dl (missing) CARBON DIOXIDE - CO2 2025-02-17 11:30 [facility] 33 mmol/l As of December 2022 testing method has changed, this may include reference ranges. TRANSFERRIN 2025-02-17 11:30 [facility] 330 mg/dl As of December 2022 testing method has changed, this may include reference ranges. PLT - PLATELET COUNT 2025-02-17 11:30 [facility] 343 10 3/ul (missing) FERRITIN 2025-02-17 11:30 [facility] 37.0 ng/ml (missing) ALBUMIN 2025-02-17 11:30 [facility] 4.2 g/dl As of December 2022 testing method has changed, this may include reference ranges. RED BLOOD COUNT 2025-02-17 11:30 [facility] 4.48 10 6/ul (missing) HCT - HEMATOCRIT 2025-02-17 11:30 [facility] 41.3 % (missing) TOTAL IRON BINDING CAPACITY 2025-02-17 11:30 [facility] 462 ug/dl (missing) NEUTROPHILS # (AUTO) 2025-02-17 11:30 [facility] 6.3 10 3/ul (missing) TOTAL PROTEIN 2025-02-17 11:30 [facility] 7.0 g/dl As of December 2022 testing method has changed, this may include reference ranges. IRON 2025-02-17 11:30 [facility] 71 ug/dl As of December 2022 testing method has changed, this may include reference ranges. ALT ALANINE AMINOTRANSFERASE 2025-02-17 11:30 [facility] 8 iu/l As of December 2022 testing method has changed, this may include reference ranges. ANION GAP 2025-02-17 11:30 [facility] 8.0 (missing) (missing) WHITE BLOOD COUNT 2025-02-17 11:30 [facility] 9.0 x10 3/ul (missing) MEAN PLATELET VOLUME 2025-02-17 11:30 [facility] 9.2 fl (missing) CALCIUM 2025-02-17 11:30 [facility] 9.3 mg/dl As of December 2022 testing method has changed, this may include reference ranges. MEAN CORPUSCULAR VOLUME 2025-02-17 11:30 [facility] 92.2 fl (missing) ALKALINE PHOSPHATASE 2025-02-17 11:30 [facility] 94 iu/l As of December 2022 testing method has changed, this may include reference ranges. CHLORIDE 2025-02-17 11:30 [facility] 95 mmol/l As of December 2022 testing method has changed, this may include reference ranges. GFR - MDRD 2025-02-17 11:30 [facility] 99 (missing) The IDMS-traceable MDRD Study Equation [...] 2011. Result panel 3 BILIRUBIN,TOTAL 2025-02-24 11:35 [facility] 0.3 mg /dl As of December 2022 testing method has changed, this may include reference ranges. CREATININE 2025-02-24 11:35 [facility] 0.6 mg/dl As of December 2022 testing method has changed, this may include reference ranges. MAGNESIUM 2025-02-24 11:35 [facility] 1.5 mg/dl As of December 2022 testing method has changed, this may include reference ranges. ALBUMIN/GLOBULIN RATIO 2025-02-24 11:35 [facility] 1.6 (missing) (missing) ALKALINE PHOSPHATASE 2025-02-24 11:35 [facility] 101 iu/l As of December 2022 testing method has changed, this may include reference ranges. AST ASPARTATE AMINOTRANSFERASE 2025-02-24 11:35 [facility] 11 iu/l As of December 2022 testing method has changed, this may include reference ranges. GLUCOSE 2025-02-24 11:35 [facility] 125 mg/dl As of December 2022 testing method has changed, this may include reference ranges. SODIUM 2025-02-24 11:35 [facility] 134 mmol/l Unknown BUN - BLOOD UREA NITROGEN 2025-02-24 11:35 [facility] 16 mg/dl As of Dec testing method has changed, this may include reference ranges. GLOBULIN 2025-02-24 11:35 [facility] 2.6 g/dl (missing) CARBON DIOXIDE - CO2 2025-02-24 11:35 [facility] 32 mmol/l As of December 2022 testing method has changed, this may include reference ranges. POTASSIUM 2025-02-24 11:35 [facility] 4.0 mmol/l As of December 2022 testing method has changed, this may include reference ranges. ALBUMIN 2025-02-24 11:35 [facility] 4.2 g/dl As of December 2022 testing method has changed, this may include reference ranges. TOTAL PROTEIN 2025-02-24 11:35 [facility] 6.8 g/dl As of December 2022 testing method has changed, this may include reference ranges. ANION GAP 2025-02-24 11:35 [facility] 7.0 (missing ) (missing) ALT ALANINE AMINOTRANSFERASE 2025-02-24 11:35 [facility] 9 iu/l As of December 2022 testing method has changed, this may include reference ranges. CALCIUM 2025-02-24 11:35 [facility] 9.7 mg/dl As of December 2022 testing method has changed, this may include reference ranges. CHLORIDE 2025-02-24 11:35 [facility] 95 mmol/l As of December 2022 testing method has changed, this may include reference ranges. GFR - MDRD 2025-02-24 11:35 [facility] 99 (missin g) The IDMS-traceable MDRD Study [...] NUCLEATED RED BLOOD CELLS AUTO 2025-03-03 11:30 [facility] 0.0 /100wbc (missing) NRBC ABSOLUTE COUNT (AUTO) 2025-03-03 11:30 [facility] 0.00 x10 3/ul (missing) BASOPHILS # (AUTO) 2025-03-03 11:30 [facility] 0.1 10 3/ul (missing) EOSINOPHILS # (AUTO) 2025-03-03 11:30 [facility] 0.2 10 3/ul (missing) BILIRUBIN,TOTAL 2025-03-03 11:30 [facility] 0.3 mg/dl As of December 2022 testing method has changed, this may include reference ranges. MONOCYTES # (AUTO) 2025-03-03 11:30 [facility] 0.5 10 3/ul (missing) CREATININE 2025-03-03 11:30 [facility] 0.5 mg/dl As of December 2022 testing method has changed, this may include reference ranges. MAGNESIUM 2025-03-03 11:30 [facility] 1.3 mg/dl As of December 2022 testing method has changed, this may include reference ranges. LYMPHOCYTES # (AUTO) 2025-03-03 11:30 [facility] 1.5 10 3/ul (missing) ALBUMIN/GLOBULIN RATIO 2025-03-03 11:30 [facility] 1.7 (missing) (missing) GLUCOSE 2025-03-03 11:30 [facility] 112 mg/dl As of December 2022 testing method has changed, this may include reference ranges. AST ASPARTATE AMINOTRANSFERASE 2025-03-03 11:30 [facility] 12 iu/l As of December 2022 testing method has changed, this may include reference ranges. GFR - MDRD 2025-03-03 11:30 [facility] 123 (missing) The IDMS-traceable MDRD Study [...] August 2011. HGB - HEMOGLOBIN 2025-03-03 11:30 [facility] 13.9 g/dl (missing) SODIUM 2025-03-03 11:30 [facility] 138 mmol/l Unknown BUN - BLOOD UREA NITROGEN 2025-03-03 11:30 [facility] 14 mg/dl As of December 2022 testing method has changed, this may include reference ranges. RED CELL DISTRIBUTION WIDTH 2025-03-03 11:30 [facility] 15.4 % (missing) GLOBULIN 2025-03-03 11:30 [facility] 2.5 g/dl (missing) MEAN CORPUSCULAR HEMOGLOBIN 2025-03-03 11:30 [facility] 28.9 pg (missing) POTASSIUM 2025-03-03 11:30 [facility] 3.7 mmol/l As of December 2022 testing method has changed, this may include reference ranges. MEAN CORPUSCULAR HGB CONC 2025-03-03 11:30 [facility] 32.0 g/dl (missing) PLT - PLATELET COUNT 2025-03-03 11:30 [facility] 327 10 3/ul (missing) CARBON DIOXIDE - CO2 2025-03-03 11:30 [facility] 34 mmol/l As of December 2022 testing method has changed, this may include reference ranges. ALBUMIN 2025-03-03 11:30 [facility] 4.2 g/dl As of December 2022 testing method has changed, this may include reference ranges. NEUTROPHILS # (AUTO) 2025-03-03 11:30 [facility] 4.5 10 3/ul (missing) RED BLOOD COUNT 2025-03-03 11:30 [facility] 4.81 10 6/ul (missing) HCT - HEMATOCRIT 2025-03-03 11:30 [facility] 43.5 % (missing) TOTAL PROTEIN 2025-03-03 11:30 [facility] 6.7 g/dl As of December 2022 testing method has changed, this may include reference ranges. WHITE BLOOD COUNT 2025-03-03 11:30 [facility] 6.8 x10 3/ul (missing) ANION GAP 2025-03-03 11:30 [facility] 8.0 (missing) (missing) ALKALINE PHOSPHATASE 2025-03-03 11:30 [facility] 86 iu/l As of December 2022 testing method has changed, this may include reference ranges. ALT ALANINE AMINOTRANSFERASE 2025-03-03 11:30 [facility] 9 iu/l As of December 2022 testing method has changed, this may include reference ranges. MEAN PLATELET VOLUME 2025-03-03 11:30 [facility] 9.2 fl (missing) CALCIUM 2025-03-03 11:30 [facility] 9.6 mg/dl As of December 2022 testing method has changed, this may include reference ranges. MEAN CORPUSCULAR VOLUME 2025-03-03 11:30 [facility] 90.4 fl (missing) CHLORIDE 2025-03-03 11:30 [facility] 96 mmol/l As of December 2022 testing method has changed, this may include reference ranges. Result panel 5 BILIRUBIN,TOTAL 2025-03-10 11:27 [facility] 0.2 mg /dl As of December 2022 testing method has changed, this may include reference ranges. CREATININE 2025-03-10 11:27 [facility] 0.5 mg/dl As of December 2022 testing method has changed, this may include reference ranges. MAGNESIUM 2025-03-10 11:27 [facility] 1.3 mg/dl As of December 2022 testing method has changed, this may include reference ranges. ALBUMIN/GLOBULIN RATIO 2025-03-10 11:27 [facility] 1.5 (missing) (missing) AST ASPARTATE AMINOTRANSFERASE 2025-03-10 11:27 [facility] 12 iu/l As of December 2022 testing method has changed, this may include reference ranges. GFR - MDRD 2025-03-10 11:27 [facility] 123 (dea soliz) The IDSC-traceable MDRD Study Equation has been validated extensively [...] last updated August 2011. SODIUM 2025-03-10 11:27 [facility] 133 mmol/l Unknown GLUCOSE 2025-03-10 11:27 [facility] 140 mg/dl As of December 2022 testing method has changed, this may include reference ranges. BUN - BLOOD UREA NITROGEN 2025-03-10 11:27 [facility] 18 mg/dl As of Dec testing method has changed, this may include reference ranges. GLOBULIN 2025-03-10 11:27 [facility] 2.7 g/dl (missing) CARBON DIOXIDE - CO2 2025-03-10 11:27 [facility] 31 mmol/l As of December 2022 testing method has changed, this may include reference ranges. POTASSIUM 2025-03-10 11:27 [facility] 4.0 mmol/l As of December 2022 testing method has changed, this may include reference ranges. ALBUMIN 2025-03-10 11:27 [facility] 4.1 g/dl As of December 2022 testing method has changed, this may include reference ranges. TOTAL PROTEIN 2025-03-10 11:27 [facility] 6.8 g/dl As of December 2022 testing method has changed, this may include reference ranges. ALKALINE PHOSPHATASE 2025-03-10 11:27 [facility] 85 iu/l As of December 2022 testing method has changed, this may include reference ranges. ALT ALANINE AMINOTRANSFERASE 2025-03-10 11:27 [facility] 9 iu/l As of December 2022 testing method has changed, this may include reference ranges. ANION GAP 2025-03-10 11:27 [facility] 9.0 (missing ) (missing) CALCIUM 2025-03-10 11:27 [facility] 9.5 mg/dl As of December 2022 testing method has changed, this may include reference ranges. CHLORIDE 2025-03-10 11:27 [facility] 93 mmol/l As of December 2022 testing method has changed, this may include reference ranges. Result panel 6 NUCLEATED RED BLOOD CELLS AUTO 2025-03-17 11:38 [facility] 0.0 /100wbc (missing) NRBC ABSOLUTE COUNT (AUTO) 2025-03-17 11:38 [facility] 0.00 x10 3/ul (missing) BASOPHILS # (AUTO) 2025-03-17 11:38 [facility] 0.1 10 3/ul (missing) EOSINOPHILS # (AUTO) 2025-03-17 11:38 [facility] 0.2 10 3/ul (missing) BILIRUBIN,TOTAL 2025-03-17 11:38 [facility] 0.3 mg/dl As of December 2022 testing method has changed, this may include reference ranges. CREATININE 2025-03-17 11:38 [facility] 0.7 mg/dl As of December 2022 testing method has changed, this may include reference ranges. MONOCYTES # (AUTO) 2025-03-17 11:38 [facility] 0.9 10 3/ul (missing) MAGNESIUM 2025-03-17 11:38 [facility] 1.3 mg/dl As of December 2022 testing method has changed, this may include reference ranges. ALBUMIN/GLOBULIN RATIO 2025-03-17 11:38 [facility] 1.6 (missing) (missing) AST ASPARTATE AMINOTRANSFERASE 2025-03-17 11:38 [facility] 11 iu/l As of December 2022 testing method has changed, this may include reference ranges. HGB - HEMOGLOBIN 2025-03-17 11:38 [facility] 13.5 g/dl (missing) GLUCOSE 2025-03-17 11:38 [facility] 134 mg/dl As of December 2022 testing method has changed, this may include reference ranges. SODIUM 2025-03-17 11:38 [facility] 136 mmol/l Unknown % IRON SATURATION 2025-03-17 11:38 [facility] 16 % (missing) RED CELL DISTRIBUTION WIDTH 2025-03-17 11:38 [facility] 16.0 % (missing) LYMPHOCYTES # (AUTO) 2025-03-17 11:38 [facility] 2.3 10 3/ul (missing) GLOBULIN 2025-03-17 11:38 [facility] 2.5 g/dl (missing) BUN - BLOOD UREA NITROGEN 2025-03-17 11:38 [facility] 24 mg/dl As of December 2022 testing method has changed, this may include reference ranges. MEAN CORPUSCULAR HEMOGLOBIN 2025-03-17 11:38 [facility] 28.3 pg (missing) POTASSIUM 2025-03-17 11:38 [facility] 3.8 mmol/l As of December 2022 testing method has changed, this may include reference ranges. MEAN CORPUSCULAR HGB CONC 2025-03-17 11:38 [facility] 30.8 g/dl (missing) PLT - PLATELET COUNT 2025-03-17 11:38 [facility] 319 10 3/ul (missing) CARBON DIOXIDE - CO2 2025-03-17 11:38 [facility] 32 mmol/l As of December 2022 testing method has changed, this may include reference ranges. TRANSFERRIN 2025-03-17 11:38 [facility] 325 mg/dl As of December 2022 testing method has changed, this may include reference ranges. FERRITIN 2025-03-17 11:38 [facility] 33.3 ng/ml (missing) ALBUMIN 2025-03-17 11:38 [facility] 4.0 g/dl As of December 2022 testing method has changed, this may include reference ranges. RED BLOOD COUNT 2025-03-17 11:38 [facility] 4.77 10 6/ul (missing) HCT - HEMATOCRIT 2025-03-17 11:38 [facility] 43.9 % (missing) TOTAL IRON BINDING CAPACITY 2025-03-17 11:38 [facility] 455 ug/dl (missing) NEUTROPHILS # (AUTO) 2025-03-17 11:38 [facility] 6.0 10 3/ul (missing) TOTAL PROTEIN 2025-03-17 11:38 [facility] 6.5 g/dl As of December 2022 testing method has changed, this may include reference ranges. IRON 2025-03-17 11:38 [facility] 72 ug/dl As of December 2022 testing method has changed, this may include reference ranges. ALKALINE PHOSPHATASE 2025-03-17 11:38 [facility] 75 iu/l As of December 2022 testing method has changed, this may include reference ranges. ANION GAP 2025-03-17 11:38 [facility] 8.0 (missing) (missing) GFR - MDRD 2025-03-17 11:38 [facility] 83 (missing) The IDMS-traceable MDRD Study Equation [...] August 2011. ALT ALANINE AMINOTRANSFERASE 2025-03-17 11:38 [facility] 9 iu/l As of December 2022 testing method has changed, this may include reference ranges. MEAN PLATELET VOLUME 2025-03-17 11:38 [facility] 9.1 fl (missing) CALCIUM 2025-03-17 11:38 [facility] 9.2 mg/dl As of December 2022 testing method has changed, this may include reference ranges. WHITE BLOOD COUNT 2025-03-17 11:38 [facility] 9.5 x10 3/ul (missing) MEAN CORPUSCULAR VOLUME 2025-03-17 11:38 [facility] 92.0 fl (missing) CHLORIDE 2025-03-17 11:38 [facility] 96 mmol/l As of December 2022 testing method has changed, this may include reference ranges. Result panel 7 BILIRUBIN,TOTAL 2025-03-24 11:24 [facility] 0.3 mg /dl As of December 2022 testing method has changed, this may include reference ranges. CREATININE 2025-03-24 11:24 [facility] 0.5 mg/dl As of December 2022 testing method has changed, this may include reference ranges. MAGNESIUM 2025-03-24 11:24 [facility] 1.1 mg/dl As of December 2022 testing method has changed, this may include reference ranges. ALBUMIN/GLOBULIN RATIO 2025-03-24 11:24 [facility] 1.6 (missing) (missing) AST ASPARTATE AMINOTRANSFERASE 2025-03-24 11:24 [facility] 10 iu/l As of December 2022 testing method has changed, this may include reference ranges. GFR - MDRD 2025-03-24 11:24 [facility] 123 (dea g) The IDMS-traceable MDRD Study Equation has [...] last updated August 2011. GLUCOSE 2025-03-24 11:24 [facility] 127 mg/dl As of December 2022 testing method has changed, this may include reference ranges. SODIUM 2025-03-24 11:24 [facility] 139 mmol/l Unknown BUN - BLOOD UREA NITROGEN 2025-03-24 11:24 [facility] 15 mg/dl As of Dec testing method has changed, this may include reference ranges. GLOBULIN 2025-03-24 11:24 [facility] 2.5 g/dl (missing) POTASSIUM 2025-03-24 11:24 [facility] 3.6 mmol/l As of December 2022 testing method has changed, this may include reference ranges. CARBON DIOXIDE - CO2 2025-03-24 11:24 [facility] 34 mmol/l As of December 2022 testing method has changed, this may include reference ranges. ALBUMIN 2025-03-24 11:24 [facility] 4.0 g/dl As of December 2022 testing method has changed, this may include reference ranges. TOTAL PROTEIN 2025-03-24 11:24 [facility] 6.5 g/dl As of December 2022 testing method has changed, this may include reference ranges. ANION GAP 2025-03-24 11:24 [facility] 7.0 (missing ) (missing) ALT ALANINE AMINOTRANSFERASE 2025-03-24 11:24 [facility] 8 iu/l As of December 2022 testing method has changed, this may include reference ranges. CALCIUM 2025-03-24 11:24 [facility] 9.2 mg/dl As of December 2022 testing method has changed, this may include reference ranges. ALKALINE PHOSPHATASE 2025-03-24 11:24 [facility] 96 iu/l As of December 2022 testing method has changed, this may include reference ranges. CHLORIDE 2025-03-24 11:24 [facility] 98 mmol/l As of December 2022 testing method has changed, this may include reference ranges. Result panel 8 NUCLEATED RED BLOOD CELLS AUTO 2025-03-31 11:25 [facility] 0.0 /100wbc (missing) NRBC ABSOLUTE COUNT (AUTO) 2025-03-31 11:25 [facility] 0.00 x10 3/ul (missing) BASOPHILS # (AUTO) 2025-03-31 11:25 [facility] 0.1 10 3/ul (missing) EOSINOPHILS # (AUTO) 2025-03-31 11:25 [facility] 0.2 10 3/ul (missing) BILIRUBIN,TOTAL 2025-03-31 11:25 [facility] 0.3 mg/dl As of December 2022 testing method has changed, this may include reference ranges. CREATININE 2025-03-31 11:25 [facility] 0.7 mg/dl As of December 2022 testing method has changed, this may include reference ranges. MONOCYTES # (AUTO) 2025-03-31 11:25 [facility] 0.8 10 3/ul (missing) ALBUMIN/GLOBULIN RATIO 2025-03-31 11:25 [facility] 1.6 (missing) (missing) MAGNESIUM 2025-03-31 11:25 [facility] 1.7 mg/dl As of December 2022 testing method has changed, this may include reference ranges. ALT ALANINE AMINOTRANSFERASE 2025-03-31 11:25 [facility] 10 iu/l As of December 2022 testing method has changed, this may include reference ranges. ALKALINE PHOSPHATASE 2025-03-31 11:25 [facility] 103 iu/l As of December 2022 testing method has changed, this may include reference ranges. GLUCOSE 2025-03-31 11:25 [facility] 108 mg/dl As of December 2022 testing method has changed, this may include reference ranges. HGB - HEMOGLOBIN 2025-03-31 11:25 [facility] 13.6 g/dl (missing) SODIUM 2025-03-31 11:25 [facility] 134 mmol/l Unknown RED CELL DISTRIBUTION WIDTH 2025-03-31 11:25 [facility] 15.9 % (missing) AST ASPARTATE AMINOTRANSFERASE 2025-03-31 11:25 [facility] 16 iu/l As of December 2022 testing method has changed, this may include reference ranges. BUN - BLOOD UREA NITROGEN 2025-03-31 11:25 [facility] 17 mg/dl As of December 2022 testing method has changed, this may include reference ranges. LYMPHOCYTES # (AUTO) 2025-03-31 11:25 [facility] 2.2 10 3/ul (missing) GLOBULIN 2025-03-31 11:25 [facility] 2.5 g/dl (missing) MEAN CORPUSCULAR HEMOGLOBIN 2025-03-31 11:25 [facility] 27.8 pg (missing) MEAN CORPUSCULAR HGB CONC 2025-03-31 11:25 [facility] 30.4 g/dl (missing) CARBON DIOXIDE - CO2 2025-03-31 11:25 [facility] 32 mmol/l As of December 2022 testing method has changed, this may include reference ranges. PLT - PLATELET COUNT 2025-03-31 11:25 [facility] 367 10 3/ul (missing) ALBUMIN 2025-03-31 11:25 [facility] 4.1 g/dl As of December 2022 testing method has changed, this may include reference ranges. POTASSIUM 2025-03-31 11:25 [facility] 4.1 mmol/l As of December 2022 testing method has changed, this may include reference ranges. RED BLOOD COUNT 2025-03-31 11:25 [facility] 4.90 10 6/ul (missing) HCT - HEMATOCRIT 2025-03-31 11:25 [facility] 44.7 % (missing) NEUTROPHILS # (AUTO) 2025-03-31 11:25 [facility] 5.5 10 3/ul (missing) TOTAL PROTEIN 2025-03-31 11:25 [facility] 6.6 g/dl As of December 2022 testing method has changed, this may include reference ranges. ANION GAP 2025-03-31 11:25 [facility] 7.0 (missing) (missing) WHITE BLOOD COUNT 2025-03-31 11:25 [facility] 8.8 x10 3/ul (missing) GFR - MDRD 2025-03-31 11:25 [facility] 83 (missing) The IDMS-traceable MDRD Study Equation [...] August 2011. MEAN PLATELET VOLUME 2025-03-31 11:25 [facility] 9.0 fl (missing) CALCIUM 2025-03-31 11:25 [facility] 9.5 mg/dl As of December 2022 testing method has changed, this may include reference ranges. MEAN CORPUSCULAR VOLUME 2025-03-31 11:25 [facility] 91.2 fl (missing) CHLORIDE 2025-03-31 11:25 [facility] 95 mmol/l As of December 2022 testing method has changed, this may include reference ranges. Result panel 9 NUCLEATED RED BLOOD CELLS AUTO 2025-04-14 11:40 [facility] 0.0 /100wbc (missing) NRBC ABSOLUTE COUNT (AUTO) 2025-04-14 11:40 [facility] 0.00 x10 3/ul (missing) BASOPHILS # (AUTO) 2025-04-14 11:40 [facility] 0.1 10 3/ul (missing) EOSINOPHILS # (AUTO) 2025-04-14 11:40 [facility] 0.1 10 3/ul (missing) BILIRUBIN,TOTAL 2025-04-14 11:40 [facility] 0.2 mg/dl As of December 2022 testing method has changed, this may include reference ranges. CREATININE 2025-04-14 11:40 [facility] 0.7 mg/dl As of December 2022 testing method has changed, this may include reference ranges. MONOCYTES # (AUTO) 2025-04-14 11:40 [facility] 0.8 10 3/ul (missing) MAGNESIUM 2025-04-14 11:40 [facility] 1.1 mg/dl As of December 2022 testing method has changed, this may include reference ranges. ALBUMIN/GLOBULIN RATIO 2025-04-14 11:40 [facility] 1.5 (missing) (missing) LYMPHOCYTES # (AUTO) 2025-04-14 11:40 [facility] 1.6 10 3/ul (missing) GLUCOSE 2025-04-14 11:40 [facility] 118 mg/dl As of December 2022 testing method has changed, this may include reference ranges. AST ASPARTATE AMINOTRANSFERASE 2025-04-14 11:40 [facility] 12 iu/l As of December 2022 testing method has changed, this may include reference ranges. % IRON SATURATION 2025-04-14 11:40 [facility] 13 % (missing) HGB - HEMOGLOBIN 2025-04-14 11:40 [facility] 13.6 g/dl (missing) SODIUM 2025-04-14 11:40 [facility] 136 mmol/l Unknown RED CELL DISTRIBUTION WIDTH 2025-04-14 11:40 [facility] 15.9 % (missing) BUN - BLOOD UREA NITROGEN 2025-04-14 11:40 [facility] 17 mg/dl As of December 2022 testing method has changed, this may include reference ranges. GLOBULIN 2025-04-14 11:40 [facility] 2.6 g/dl (missing) FERRITIN 2025-04-14 11:40 [facility] 26.6 ng/ml (missing) MEAN CORPUSCULAR HEMOGLOBIN 2025-04-14 11:40 [facility] 27.5 pg (missing) MEAN CORPUSCULAR HGB CONC 2025-04-14 11:40 [facility] 30.8 g/dl (missing) CARBON DIOXIDE - CO2 2025-04-14 11:40 [facility] 32 mmol/l As of December 2022 testing method has changed, this may include reference ranges. PLT - PLATELET COUNT 2025-04-14 11:40 [facility] 342 10 3/ul (missing) TRANSFERRIN 2025-04-14 11:40 [facility] 344 mg/dl As of December 2022 testing method has changed, this may include reference ranges. ALBUMIN 2025-04-14 11:40 [facility] 4.0 g/dl As of December 2022 testing method has changed, this may include reference ranges. POTASSIUM 2025-04-14 11:40 [facility] 4.1 mmol/l As of December 2022 testing method has changed, this may include reference ranges. RED BLOOD COUNT 2025-04-14 11:40 [facility] 4.95 10 6/ul (missing) HCT - HEMATOCRIT 2025-04-14 11:40 [facility] 44.2 % (missing) TOTAL IRON BINDING CAPACITY 2025-04-14 11:40 [facility] 482 ug/dl (missing) TOTAL PROTEIN 2025-04-14 11:40 [facility] 6.6 g/dl As of December 2022 testing method has changed, this may include reference ranges. IRON 2025-04-14 11:40 [facility] 62 ug/dl As of December 2022 testing method has changed, this may include reference ranges. ANION GAP 2025-04-14 11:40 [facility] 7.0 (missing) (missing) NEUTROPHILS # (AUTO) 2025-04-14 11:40 [facility] 7.2 10 3/ul (missing) GFR - MDRD 2025-04-14 11:40 [facility] 83 (missing) The IDMS-traceable MDRD Study Equation [...] August 2011. MEAN CORPUSCULAR VOLUME 2025-04-14 11:40 [facility] 89.3 fl (missing) ALT ALANINE AMINOTRANSFERASE 2025-04-14 11:40 [facility] 9 iu/l As of December 2022 testing method has changed, this may include reference ranges. MEAN PLATELET VOLUME 2025-04-14 11:40 [facility] 9.0 fl (missing) CALCIUM 2025-04-14 11:40 [facility] 9.1 mg/dl As of December 2022 testing method has changed, this may include reference ranges. WHITE BLOOD COUNT 2025-04-14 11:40 [facility] 9.8 x10 3/ul (missing) CHLORIDE 2025-04-14 11:40 [facility] 97 mmol/l As of December 2022 testing method has changed, this may include reference ranges. ALKALINE PHOSPHATASE 2025-04-14 11:40 [facility] 99 iu/l As of December 2022 testing method has changed, this may include reference ranges. Result panel 10 BILIRUBIN,TOTAL 2025-04-21 11:39 [facility] 0.3 mg /dl As of December 2022 testing method has changed, this may include reference ranges. CREATININE 2025-04-21 11:39 [facility] 0.7 mg/dl As of December 2022 testing method has changed, this may include reference ranges. MAGNESIUM 2025-04-21 11:39 [facility] 0.9 mg/dl Critical result MG 0.9 mg/dL called to and read back by Giselle Smith RN/ALEX at 21-Apr-2025 11:55 by linda. As of December 2022 testing method has changed, this may include reference ranges. ALBUMIN/GLOBULIN RATIO 2025-04-21 11:39 [facility] 1.6 (missing) (missing) ALT ALANINE AMINOTRANSFERASE 2025-04-21 11:39 [facility] 10 iu/l As of December 2022 testing method has changed, this may include reference ranges. ALKALINE PHOSPHATASE 2025-04-21 11:39 [facility] 104 iu/l As of December 2022 testing method has changed, this may include reference ranges. SODIUM 2025-04-21 11:39 [facility] 138 mmol/l Unknown GLUCOSE 2025-04-21 11:39 [facility] 139 mg/dl As of December 2022 testing method has changed, this may include reference ranges. AST ASPARTATE AMINOTRANSFERASE 2025-04-21 11:39 [facility] 14 iu/l As of December 2022 testing method has changed, this may include reference ranges. BUN - BLOOD UREA NITROGEN 2025-04-21 11:39 [facility] 16 mg/dl As of Dec testing method has changed, this may include reference ranges. GLOBULIN 2025-04-21 11:39 [facility] 2.5 g/dl (missing) POTASSIUM 2025-04-21 11:39 [facility] 3.5 mmol/l As of December 2022 testing method has changed, this may include reference ranges. CARBON DIOXIDE - CO2 2025-04-21 11:39 [facility] 31 mmol/l As of December 2022 testing method has changed, this may include reference ranges. ALBUMIN 2025-04-21 11:39 [facility] 4.1 g/dl As of December 2022 testing method has changed, this may include reference ranges. TOTAL PROTEIN 2025-04-21 11:39 [facility] 6.6 g/dl As of December 2022 testing method has changed, this may include reference ranges. GFR - MDRD 2025-04-21 11:39 [facility] 83 (missin g) The IDMS-traceable MDRD Study [...] updated August 2011. ANION GAP 2025-04-21 11:39 [facility] 9.0 (missing ) (missing) CALCIUM 2025-04-21 11:39 [facility] 9.1 mg/dl As of December 2022 testing method has changed, this may include reference ranges. CHLORIDE 2025-04-21 11:39 [facility] 98 mmol/l As of December 2022 testing method has changed, this may include reference ranges. Result panel 11 NUCLEATED RED BLOOD CELLS AUTO 2025-04-24 13:38 [facility] 0.0 /100wbc (missing) NRBC ABSOLUTE COUNT (AUTO) 2025-04-24 13:38 [facility] 0.00 x10 3/ul (missing) BASOPHILS # (AUTO) 2025-04-24 13:38 [facility] 0.1 10 3/ul (missing) EOSINOPHILS # (AUTO) 2025-04-24 13:38 [facility] 0.2 10 3/ul (missing) BILIRUBIN,TOTAL 2025-04-24 13:38 [facility] 0.2 mg/dl As of December 2022 testing method has changed, this may include reference ranges. MONOCYTES # (AUTO) 2025-04-24 13:38 [facility] 0.5 10 3/ul (missing) CREATININE 2025-04-24 13:38 [facility] 0.5 mg/dl As of December 2022 testing method has changed, this may include reference ranges. LYMPHOCYTES # (AUTO) 2025-04-24 13:38 [facility] 1.3 10 3/ul (missing) MAGNESIUM 2025-04-24 13:38 [facility] 1.3 mg/dl As of December 2022 testing method has changed, this may include reference ranges. ALBUMIN/GLOBULIN RATIO 2025-04-24 13:38 [facility] 1.5 (missing) (missing) BUN - BLOOD UREA NITROGEN 2025-04-24 13:38 [facility] 10 mg/dl As of December 2022 testing method has changed, this may include reference ranges. CHLORIDE 2025-04-24 13:38 [facility] 101 mmol/l As of December 2022 testing method has changed, this may include reference ranges. AST ASPARTATE AMINOTRANSFERASE 2025-04-24 13:38 [facility] 11 iu/l As of December 2022 testing method has changed, this may include reference ranges. GFR - MDRD 2025-04-24 13:38 [facility] 123 (missing) The IDMS-traceable MDRD Study Equation [...] August 2011. HGB - HEMOGLOBIN 2025-04-24 13:38 [facility] 13.0 g/dl (missing) SODIUM 2025-04-24 13:38 [facility] 138 mmol/l (missing) GLUCOSE 2025-04-24 13:38 [facility] 155 mg/dl As of December 2022 testing method has changed, this may include reference ranges. RED CELL DISTRIBUTION WIDTH 2025-04-24 13:38 [facility] 16.6 % (missing) GLOBULIN 2025-04-24 13:38 [facility] 2.6 g/dl (missing) MEAN CORPUSCULAR HEMOGLOBIN 2025-04-24 13:38 [facility] 27.0 pg (missing) CARBON DIOXIDE - CO2 2025-04-24 13:38 [facility] 28 mmol/l As of December 2022 testing method has changed, this may include reference ranges. PLT - PLATELET COUNT 2025-04-24 13:38 [facility] 296 10 3/ul (missing) NEUTROPHILS # (AUTO) 2025-04-24 13:38 [facility] 3.9 10 3/ul (missing) POTASSIUM 2025-04-24 13:38 [facility] 3.9 mmol/l As of December 2022 testing method has changed, this may include reference ranges. MEAN CORPUSCULAR HGB CONC 2025-04-24 13:38 [facility] 30.4 g/dl (missing) ALBUMIN 2025-04-24 13:38 [facility] 4.0 g/dl As of December 2022 testing method has changed, this may include reference ranges. RED BLOOD COUNT 2025-04-24 13:38 [facility] 4.81 10 6/ul (missing) HCT - HEMATOCRIT 2025-04-24 13:38 [facility] 42.8 % (missing) LIPASE 2025-04-24 13:38 [facility] 51 u/l As of December 2022 testing method has changed, this may include reference ranges. WHITE BLOOD COUNT 2025-04-24 13:38 [facility] 6.0 x10 3/ul (missing) TOTAL PROTEIN 2025-04-24 13:38 [facility] 6.6 g/dl As of December 2022 testing method has changed, this may include reference ranges. MEAN CORPUSCULAR VOLUME 2025-04-24 13:38 [facility] 89.0 fl (missing) ALT ALANINE AMINOTRANSFERASE 2025-04-24 13:38 [facility] 9 iu/l As of December 2022 testing method has changed, this may include reference ranges. ANION GAP 2025-04-24 13:38 [facility] 9.0 (missing) (missing) MEAN PLATELET VOLUME 2025-04-24 13:38 [facility] 9.1 fl (missing) CALCIUM 2025-04-24 13:38 [facility] 9.7 mg/dl As of December 2022 testing method has changed, this may include reference ranges. ALKALINE PHOSPHATASE 2025-04-24 13:38 [facility] 94 iu/l As of December 2022 testing method has changed, this may include reference ranges. Result panel 12 NUCLEATED RED BLOOD CELLS AUTO 2025-04-28 11:37 [facility] 0.0 /100wbc (missing) NRBC ABSOLUTE COUNT (AUTO) 2025-04-28 11:37 [facility] 0.00 x10 3/ul (missing) BASOPHILS # (AUTO) 2025-04-28 11:37 [facility] 0.1 10 3/ul (missing) EOSINOPHILS # (AUTO) 2025-04-28 11:37 [facility] 0.3 10 3/ul (missing) BILIRUBIN,TOTAL 2025-04-28 11:37 [facility] 0.3 mg/dl As of December 2022 testing method has changed, this may include reference ranges. MONOCYTES # (AUTO) 2025-04-28 11:37 [facility] 0.5 10 3/ul (missing) CREATININE 2025-04-28 11:37 [facility] 0.7 mg/dl As of December 2022 testing method has changed, this may include reference ranges. MAGNESIUM 2025-04-28 11:37 [facility] 0.8 mg/dl Critical result MG 0.8 mg/dL called to and read back by GLADIS Shaw RN/MAC at 28-Apr-2025 11:53 by linda. As of December 2022 testing method has changed, this may include reference ranges. LYMPHOCYTES # (AUTO) 2025-04-28 11:37 [facility] 1.2 10 3/ul (missing) ALBUMIN/GLOBULIN RATIO 2025-04-28 11:37 [facility] 1.6 (missing) (missing) AST ASPARTATE AMINOTRANSFERASE 2025-04-28 11:37 [facility] 11 iu/l As of December 2022 testing method has changed, this may include reference ranges. ANION GAP 2025-04-28 11:37 [facility] 11.0 (missing) (missing) HGB - HEMOGLOBIN 2025-04-28 11:37 [facility] 13.3 g/dl (missing) SODIUM 2025-04-28 11:37 [facility] 137 mmol/l Unknown BUN - BLOOD UREA NITROGEN 2025-04-28 11:37 [facility] 15 mg/dl As of December 2022 testing method has changed, this may include reference ranges. GLUCOSE 2025-04-28 11:37 [facility] 154 mg/dl As of December 2022 testing method has changed, this may include reference ranges. RED CELL DISTRIBUTION WIDTH 2025-04-28 11:37 [facility] 16.6 % (missing) GLOBULIN 2025-04-28 11:37 [facility] 2.6 g/dl (missing) MEAN CORPUSCULAR HEMOGLOBIN 2025-04-28 11:37 [facility] 27.3 pg (missing) POTASSIUM 2025-04-28 11:37 [facility] 3.7 mmol/l As of December 2022 testing method has changed, this may include reference ranges. CARBON DIOXIDE - CO2 2025-04-28 11:37 [facility] 30 mmol/l As of December 2022 testing method has changed, this may include reference ranges. MEAN CORPUSCULAR HGB CONC 2025-04-28 11:37 [facility] 30.9 g/dl (missing) PLT - PLATELET COUNT 2025-04-28 11:37 [facility] 303 10 3/ul (missing) ALBUMIN 2025-04-28 11:37 [facility] 4.1 g/dl As of December 2022 testing method has changed, this may include reference ranges. RED BLOOD COUNT 2025-04-28 11:37 [facility] 4.87 10 6/ul (missing) HCT - HEMATOCRIT 2025-04-28 11:37 [facility] 43.1 % (missing) NEUTROPHILS # (AUTO) 2025-04-28 11:37 [facility] 5.3 10 3/ul (missing) TOTAL PROTEIN 2025-04-28 11:37 [facility] 6.7 g/dl As of December 2022 testing method has changed, this may include reference ranges. WHITE BLOOD COUNT 2025-04-28 11:37 [facility] 7.3 x10 3/ul (missing) ALT ALANINE AMINOTRANSFERASE 2025-04-28 11:37 [facility] 8 iu/l As of December 2022 testing method has changed, this may include reference ranges. MEAN PLATELET VOLUME 2025-04-28 11:37 [facility] 8.8 fl (missing) GFR - MDRD 2025-04-28 11:37 [facility] 83 (missing) The IDMS-traceable MDRD Study Equation [...] updated August 2011. ALKALINE PHOSPHATASE 2025-04-28 11:37 [facility] 87 iu/l As of December 2022 testing method has changed, this may include reference ranges. MEAN CORPUSCULAR VOLUME 2025-04-28 11:37 [facility] 88.5 fl (missing) CALCIUM 2025-04-28 11:37 [facility] 9.0 mg/dl As of December 2022 testing method has changed, this may include reference ranges. CHLORIDE 2025-04-28 11:37 [facility] 96 mmol/l As of December 2022 testing method has changed, this may include reference ranges. Result panel 13 BILIRUBIN,TOTAL 2025-05-02 20:57 [facility] 0.4 mg/dl As of December 2022 testing method has changed, this may include reference ranges. CREATININE 2025-05-02 20:57 [facility] 0.5 mg/dl As of December 2022 testing method has changed, this may include reference ranges. MAGNESIUM 2025-05-02 20:57 [facility] 0.6 mg/dl Critical result MG 0.6 mg/dL called to and read back by DR ADDY DING at 02-May-2025 22:17 by ecoursey. Slightly Hemolyzed: Results may be affected. As of December 2022 testing method has changed, this may include reference ranges. GLOBULIN 2025-05-02 20:57 [facility] 1.8 g/dl (missing) ALBUMIN/GLOBULIN RATIO 2025-05-02 20:57 [facility] 1.9 (missing) (missing) CHLORIDE 2025-05-02 20:57 [facility] 104 mmol/l As of December 2022 testing method has changed, this may include reference ranges. ANION GAP 2025-05-02 20:57 [facility] 11.0 (missing) (missing) GFR - MDRD 2025-05-02 20:57 [facility] 123 (missing) The IDSC-traceable MDRD Study Equation has been validated extensively [...] ine-stand ardization, last updated August 2011. GLUCOSE 2025-05-02 20:57 [facility] 123 mg/dl As of December 2022 testing method has changed, this may include reference ranges. SODIUM 2025-05-02 20:57 [facility] 141 mmol/l (missing) BUN - BLOOD UREA NITROGEN 2025-05-02 20:57 [facility] 15 mg/dl As of December 2022 testing method has changed, this may include reference ranges. AST ASPARTATE AMINOTRANSFERASE 2025-05-02 20:57 [facility] 17 iu/l Slightly Hemolyzed: Results may be affected. As of December 2022 testing method has changed, this may include reference ranges. CARBON DIOXIDE - CO2 2025-05-02 20:57 [facility] 26 mmol/l As of December 2022 testing method has changed, this may include reference ranges. POTASSIUM 2025-05-02 20:57 [facility] 3.3 mmol/l Slightly Hemolyzed: Results may be affected. As of December 2022 testing method has changed, this may include reference ranges. ALBUMIN 2025-05-02 20:57 [facility] 3.4 g/dl As of December 2022 testing method has changed, this may include reference ranges. TOTAL PROTEIN 2025-05-02 20:57 [facility] 5.2 g/dl As of December 2022 testing method has changed, this may include reference ranges. CALCIUM 2025-05-02 20:57 [facility] 7.0 mg/dl As of December 2022 testing method has changed, this may include reference ranges. ALT ALANINE AMINOTRANSFERASE 2025-05-02 20:57 [facility] 8 iu/l As of December 2022 testing method has changed, this may include reference ranges. ALKALINE PHOSPHATASE 2025-05-02 20:57 [facility] 90 iu/l As of December 2022 testing method has changed, this may include reference ranges. Result panel 14 NUCLEATED RED BLOOD CELLS AUTO 2025-05-02 22:40 [facility] 0.0 /100wbc (missing) NRBC ABSOLUTE COUNT (AUTO) 2025-05-02 22:40 [facility] 0 .00 x10 3/ul (missing) BASOPHILS # (AUTO) 2025-05-02 22:40 [facility] 0.1 10 3/ul (missing) EOSINOPHILS # (AUTO) 2025-05-02 22:40 [facility] 0.1 10 3/ul (missing) LYMPHOCYTES # (AUTO) 2025-05-02 22:40 [facility] 0.6 10 3/ul (missing) MONOCYTES # (AUTO) 2025-05-02 22:40 [facility] 0.9 10 3/ul (missing) NEUTROPHILS # (AUTO) 2025-05-02 22:40 [facility] 11.0 10 3/ul (missing) WHITE BLOOD COUNT 2025-05-02 22:40 [facility] 12.7 x10 3/ul REDRAW HGB - HEMOGLOBIN 2025-05-02 22:40 [facility] 14.9 g /dl (missing) RED CELL DISTRIBUTION WIDTH 2025-05-02 22:40 [facility] 16.9 % (missing) MEAN CORPUSCULAR HEMOGLOBIN 2025-05-02 22:40 [facility] 27.1 pg (missing) MEAN CORPUSCULAR HGB CONC 2025-05-02 22:40 [facility] 30 .9 g/dl (missing) PLT - PLATELET COUNT 2025-05-02 22:40 [facility] 344 10 3/ul (missing) HCT - HEMATOCRIT 2025-05-02 22:40 [facility] 48.2 % (missing) RED BLOOD COUNT 2025-05-02 22:40 [facility] 5.49 10 6/ul (missing) MEAN PLATELET VOLUME 2025-05-02 22:40 [facility] 8.9 fl (missing) MEAN CORPUSCULAR VOLUME 2025-05-02 22:40 [facility] 87.8 fl (missing) Social History date description facility
[2025-05-03 03:31] LABS: CHOL/HDL RATIO 7.0 (<4.4); LDL/HDL RATIO 3.4 (<4.4); VLDL CHOLESTEROL 78 mg/dL
[2025-05-03] MEDS: ACETAMINOPHEN 325 MG TABLET PO PRN (03:48)
[2025-05-03] MEDS: LACTATED RINGERS 1,000 ML IV SCH (03:48)
[2025-05-03 04:37] LABS: HCT - HEMATOCRIT 40.9 % (37.0-47.0); HGB - HEMOGLOBIN 12.5 g/dL (12.0-16.0); MEAN PLATELET VOLUME 9.2 fL (7.9-10.8); NRBC ABSOLUTE COUNT (AUTO) 0.00 x10^3/uL; NUCLEATED RED BLOOD CELLS AUTO 0.0 /100WBC; PLT - PLATELET COUNT 268 10^3/uL (130-450); RED CELL DISTRIBUTION WIDTH 16.9 % (12.0-15.0)
[2025-05-03] MEDS: DICYCLOMINE 10 MG CAPSULE PO ONE (04:37)
[2025-05-03 04:40] LABS: VBG PH 7.389 (7.31-7.41)
[2025-05-03 04:57] LABS: ALT ALANINE AMINOTRANSFERASE 6.0 IU/L (10-60); AST ASPARTATE AMINOTRANSFERASE 9.0 IU/L (10-42); BUN - BLOOD UREA NITROGEN 15.0 mg/dL (6-20); CARBON DIOXIDE - CO2 32.0 mmol/L (21-32); CREATININE 0.6 mg/dL (0.6-1.3); GFR - MDRD 99.0 (>89)
[2025-05-03] MEDS: MAGNESIUM SULFATE 2 GRAM 2 GM/50 ML BAG IV ONE (05:16)
[2025-05-03] MEDS: POTASSIUM CHLOR 10 MEQ/100 ML 10 MEQ/100 ML BAG IV SCH (06:32)
[2025-05-03] MEDS: INSULIN LISPRO 300 UNIT/3 ML PEN SUBQ SCH (08:17)
[2025-05-03] MEDS: SACCHAROMYCES BOULARDII 250 MG CAPSULE PO SCH (08:17)
[2025-05-03] MEDS: ASCORBIC ACID 500 MG TABLET PO SCH (08:18)
[2025-05-03] MEDS: GABAPENTIN 300 MG CAPSULE PO SCH (08:18)
[2025-05-03] MEDS: METOPROLOL TARTRATE 50 MG TABLET PO SCH (08:18)
[2025-05-03] MEDS: DICYCLOMINE 10 MG CAPSULE PO SCH (08:18)
[2025-05-03] MEDS: CHOLECALCIFEROL 5,000 UNIT CAPSULE PO SCH (08:19)
[2025-05-03] MEDS: POTASSIUM CHLORIDE 10 MEQ CAPSULE PO SCH (08:19)
[2025-05-03] MEDS: FUROSEMIDE 20 MG TABLET PO SCH (08:19)
[2025-05-03] MEDS: MUPIROCIN 2% OINT 1 GM TOP SCH (08:20)
[2025-05-03] MEDS: EZETIMIBE 10 MG PO SCH (08:21)
[2025-05-03 08:50] LABS: ESTIMATED AVERAGE GLUCOSE 134 mg/dL (70-100); HEMOGLOBIN A1c% 6.3 % (4.27-6.07)
[2025-05-03] MEDS: HYDROmorphone 1 MG/ML CARPUJECT IVP PRN (10:08)
[2025-05-03 10:48] LABS: B. PARAPERTUSSIS- RESP PCR PAN NOT DETECTED; B. PERTUSSIS- RESP PCR PANEL NOT DETECTED; C. PNEUMONIAE- RESP PCR PANEL NOT DETECTED; CORONAVIRUS 229E-RESP PCR NOT DETECTED; CORONAVIRUS HKU1-RESP PCR NOT DETECTED; CORONAVIRUS NL63-RESP PCR NOT DETECTED; CORONAVIRUS OC43-RESP PCR NOT DETECTED; HUMAN METAPNEUMOVIRUS NOT DETECTED; INFLUENZA A- RESP PCR PANEL NOT DETECTED; INFLUENZA B - RESP PCR PANEL NOT DETECTED; M. PNEUMONIAE- RESP PCR PANEL NOT DETECTED; PARAINFLUENZA VIRUS 1 NOT DETECTED; PARAINFLUENZA VIRUS 2 NOT DETECTED; PARAINFLUENZA VIRUS 4 NOT DETECTED; RHINOVIRUS/ENTEROVIRUS NOT DETECTED; RSV- RESP PCR PANEL NOT DETECTED; SARS-CoV-2 -RESP PCR PANEL NOT DETECTED
[2025-05-03] MEDS: IPRATROPIUM/ALBUTEROL 3 ML NEB INH SCH (11:20)
--- NOTE | 2025-05-03 12:26 | PHARMACY PROGRESS NOTE ---
[facility] Medication History Admit Date and Time: 05/03/25 0235 Home Medications Medication Instructions Recorded Confirmed Type Permanent Disabled Placard 03/17/24 04/28/25 History cetirizine 10 mg tablet 10 mg PO QPM PRN allergy sym ptoms 03/17/24 05/03/25 History cholecalciferol (vitamin D3) 125 125 mcg PO DAILY 09/0505/03/25 History mcg (5,000 unit) capsule guaifenesin 1,200 mg tablet, 1,200 mg PO BID 03/17/24 05/03/25 History extended release 12 hr hydrocortisone 2.5 % topical cream 1 applic topical DA RIKI PRN rash 03/17/24 05/03/25 History aspirin 325 mg tablet,delayed 650 mg PO BID PRN osteoa rthritis 04/23/24 05/03/25 History release nystatin 100,000 unit/gram topical 1 applic topical BI D mycosis #180 09/13/24 05/03/25 Rx powder (Nyamy) grams inhalational spacing device #1 ea 11/04/24 04/28/25 Rx ([facility]) glimepiride 1 mg tablet 1 mg PO DAILY Diabetes #90 t abs 11/17/24 05/03/25 Rx vu-gtb-zkjsu 180 mcg-om3 32.5 1 tab PO Q OTHER DAY tary 12/04/24 05/03/25 Rx pm-yiz-psb-other tb2f-zzkj chew supplement #180 tabs tablet ( Gummies (DHA-EPA)) mupirocin 2 % topical ointment 1 applic topical BID mr sa #15 grams 12/06/24 05/03/25 Rx ([facility]) blood sugar diagnostic (OneTouch #100 ea 12/10/2404/15 Rx Ultra Test strips) epinephrine 0.3 mg/0.3 mL 0.3 mg (0.3 mL) IM Q10M PRN 12/10/24 05/03/25 Rx injection, auto-injector (EpiPen) anaphylaxis #2 ea Lactobacillus acidoph-L.bulgaricus 1 tab PO BID 05/03/25 History 1 million cell tablet (Floranex) allopurinol 300 mg tablet 300 mg PO DAILY 01/09/25 History ascorbic acid (vitamin C) 500 mg 500 mg PO DAILY Nutri tional 01/09/25 05/03/25 History capsule supplement furosemide 20 mg tablet (Lasix) 20 mg PO DAILY edema 0 01/09/25 05/03/25 History levomefolate 7.5 mg-algal oil 1 cap PO DAILY 01/09/25 05/03/25 History 90.314 mg capsule (L-Methylfolate Forte) potassium chloride 10 mEq 10 meq PO DAILY 01/09/25 History capsule,extended release magnesium glycinate 120 mg (as 120 mg PO BID 01/15/25 05/03/25 History glycinate) capsule ondansetron 4 mg disintegrating 4 mg translingual TID PRN Nausea / 02/03/25 05/03/25 Rx tablet Vomiting #60 tabs varenicline tartrate 1 mg tablet 1 mg PO BID #60 tabs 02/03/25 05/03/25 Rx (Chantix) metoprolol tartrate 50 mg tablet 50 mg PO BID #180 tab s 02/08/25 05/03/25 Rx gabapentin 300 mg capsule 300 mg PO BID #180 caps 02/1305/03/25 Rx lorazepam 0.5 mg tablet 0.5 mg PO BID PRN anxiety an d 03/15/25 05/03/25 Rx sleep #60 tabs esomeprazole magnesium 40 mg 40 mg PO QDAY 03/20/25 History capsule,delayed release (Nexium) ezetimibe 10 mg tablet 10 mg PO QDAY #30 tabs 03/2005/03/25 Rx prednisone 5 mg tablet 5 mg PO DAILY #90 tabs 03/2005/03/25 Rx hydromorphone 1 mg/mL oral liquid 4 - 6 mg (4 - 6 mL) PO Q4-6H PRN 04/21/25 05/03/25 Rx pain #473 mL vortioxetine 20 mg tablet 20 mg PO DAILY #90 tabs 01/0605/03/25 Rx dicyclomine 10 mg capsule See Rx Instructions PO .COMP [place] 04/24/25 05/03/25 Rx PRN abdominal pain #100 caps albuterol sulfate 90 mcg/actuation 1 puff inhalation Q 6H PRN 05/03/25 05/03/25 History aerosol inhaler shortness of breath or wheez ing Processed by: Pharmacy (Medication reconciliation completed by Hair Spinning Machine OperatorRachel) Medications reviewed in ED?: No Medication History completed: Yes Patient Interview: Completed Secondary Source(s): Insurance records [facility] Statement: As the person ultimately responsible for medication therapy, providers are able to order a medication from an existing home medication list in [facility] via the "Reconcile Routine" prior to Confirmation of that medication by sales support associate. Such practice is discouraged except when the physician, in their clinical judgment, deems that a medical need exists for a medication without regard to previous use.
[2025-05-03] MEDS: HEPARIN FLUSH 500 UNITS/5 ML SYRINGE IVP PRN (12:39)
--- NOTE | 2025-05-03 12:42 | Discharge Summary ---
Discharge Summary Admit Date: 05/03/25 Discharge Date: 05/03/25 Discharging Provider: Philip Naranjo Primary Care Provider: Crystal Pollock Code Status: Attempt Resuscitation DIAGNOSES Discharge Diagnoses with Status of Each Condition: Electrolyte abnormalityrepleted and resolved Abdominal painback to baseline Hypoxiaworkup negative, on room air HPI History of Present Illness: pt with h/o ventral hernia (pending repair), t2dm, malabsorption syndrome with h/o multiple ed visits and hospitalizations. presented about 9 days ago with abd pain and protuberant ventral hernia, that was successfully reduced in ed. since then, pt has had persistent abd pain, nausea, vomiting, diarrhea. no blood reported. she states she has BM from rectum and vagina. chills but no fevers. no falls. no ams. lives alone but has home health care once per week @ 20 hours per month. denies t/e/d. HOSPITAL COURSE Hospital Course: Patient was admitted to the hospital and started on aggressive IV repletion of her electrolytes. Late this morning, her potassium and magnesium had been repleted to 3.9 and 2.2. Calcium has increased to 8.2. She reports that her abdominal pain is much better, back to her normal level. She is already established with a GI surgeon, with plans to operate at the end of the year. She is being discharged home to follow-up with her surgeon and PCP ALLERGIES Allergies Allergy/AdvReac Type Severity Reaction Status Date / Time amoxicillin (Amoxicillin) Allergy Severe Hives Verified 05/02/25 21:05 clavulanic acid (From Allergy Severe Hives Verified 05/02/25 21:05 Augmentin) droperidol (From Inapsine) Allergy Severe EPS Verified 05/02/25 21:05 ibuprofen (From Motrin) Allergy Severe Anaphylaxis Verified 05/02/25 21:05 ketorolac Allergy Severe Anaphylaxis Verified 05/02/25 21:05 ketorolac tromethamine * Allergy Severe Anaphylaxis Verified 05/02/25 21:05 (From Toradol) peanut Allergy Severe Anaphylaxis Verified 05/02/25 21:05 potassium clavulanate * Allergy Severe Hives Verified 05/02/25 21:05 (From Augmentin) shellfish derived Allergy Severe Anaphylaxis Verified 05/02/25 21:05 Tbvrmej-SPI-SjF Reductase Allergy Severe Cramps Verified 05/02/25 21:05 Inhibitor (Xqhojeu-Tfe-Ymw Reductase Inhibitor) cefadroxil (From Duricef) Allergy Intermediate Hives Verified 05/02/25 21:05 cefazolin Allergy Intermediate Hives Verified 05/02/25 21:05 Cephalosporins Allergy Intermediate Hives Verified 05/02/25 21:05 clindamycin Allergy Intermediate Hives Verified 05/02/25 21:05 cyclobenzaprine Allergy Intermediate Hives/night Verified 05/02/25 21:05 (Cyclobenzaprine) castaneda erythromycin base Allergy Intermediate Hives Verified 05/02/25 21:05 (Erythromycin Base) adalimumab (From Humira) AdvReac Severe Nausea Verified 05/02/25 21:05 adhesive tape AdvReac Severe BLISTERS Verified 05/02/25 21:05 duloxetine AdvReac Severe Suicidal Verified 05/02/25 21:05 etanercept (From Enbrel) AdvReac Severe Nausea/vomm Verified 05/02/25 21:05 iting/cramp s methotrexate AdvReac Severe N/V/Cramps Verified 05/02/25 21:05 metoclopramide (From Reglan) AdvReac Severe Hallucinati Verified 05/02/25 21:05 ons morphine AdvReac Severe Nausea Verified 05/02/25 21:05 NSAIDS (Non-Steroidal AdvReac Severe Anaphylaxis Verified 05/02/25 21:05 Anti-Inflamma pregabalin (From Lyrica) AdvReac Severe Rash Verified 05/02/25 21:05 prochlorperazine AdvReac Severe EPS Verified 05/02/25 21:05 prochlorperazine edisylate * AdvReac Severe Hallucinati Verified 05/02/25 21:05 (From Compazine) ons prochlorperazine maleate * AdvReac Severe Hallucinati Verified 05/02/25 21:05 (From Compazine) ons promethazine (From Phenergan) AdvReac Severe Hallucinati Verified 05/02/25 21:05 ons pseudoephedrine AdvReac Severe Tachycardia Verified 05/02/25 21:05 sumatriptan AdvReac Severe Widened QRS Verified 05/02/25 21:05 contact metal agent AdvReac Intermediate Unknown Verified 05/02/25 21:05 doxycycline AdvReac Intermediate Hives Verified 05/02/25 21:05 latex AdvReac Intermediate Sensitivity Verified 05/02/25 21:05 pravastatin AdvReac Intermediate Cramps Verified 05/02/25 21:05 MEDICATIONS Ambulatory Orders Medication Instructions Recorded Confirmed Permanent Disabled Placard 03/17/24 04/28/25 cetirizine 10 mg tablet 10 mg PO QPM PRN allergy sym ptoms 03/17/24 05/03/25 cholecalciferol (vitamin D3) 125 125 mcg PO DAILY 09/0505/03/25 mcg (5,000 unit) capsule guaifenesin 1,200 mg tablet, 1,200 mg PO BID 03/17/24 05/03/25 extended release 12 hr hydrocortisone 2.5 % topical cream 1 applic topical DA RIKI PRN rash 03/17/24 05/03/25 aspirin 325 mg tablet,delayed 650 mg PO BID PRN osteoa rthritis 04/23/24 05/03/25 release nystatin 100,000 unit/gram topical 1 applic topical BI D mycosis #180 09/13/24 05/03/25 powder ([facility]) grams inhalational spacing device #1 ea 11/04/24 04/28/25 (BreatheRite MDI Spacer) glimepiride 1 mg tablet 1 mg PO DAILY Diabetes #90 t abs 11/17/24 05/03/25 gy-srm-toyxe 180 mcg-om3 32.5 1 tab PO Q OTHER DAY tary 12/04/24 05/03/25 xe-ucy-xnm-other go3s-pvlz chew supplement #180 tabs tablet ( Gummies (DHA-EPA)) mupirocin 2 % topical ointment 1 applic topical BID mr sa #15 grams 12/06/24 05/03/25 ([facility]) blood sugar diagnostic (OneTouch #100 ea 12/10/2404/15 Ultra Test strips) epinephrine 0.3 mg/0.3 mL 0.3 mg (0.3 mL) IM Q10M PRN 12/10/24 05/03/25 injection, auto-injector (EpiPen) anaphylaxis #2 ea Lactobacillus acidoph-L.bulgaricus 1 tab PO BID 05/03/25 1 million cell tablet (Floranex) allopurinol 300 mg tablet 300 mg PO DAILY 01/09/25 ascorbic acid (vitamin C) 500 mg 500 mg PO DAILY Nutri tional 01/09/25 05/03/25 capsule supplement furosemide 20 mg tablet (Lasix) 20 mg PO DAILY edema 0 01/09/25 05/03/25 levomefolate 7.5 mg-algal oil 1 cap PO DAILY 01/09/25 05/03/25 90.314 mg capsule (L-Methylfolate Forte) potassium chloride 10 mEq 10 meq PO DAILY 01/09/25 capsule,extended release magnesium glycinate 120 mg (as 120 mg PO BID 01/15/25 05/03/25 glycinate) capsule ondansetron 4 mg disintegrating 4 mg translingual TID PRN Nausea / 02/03/25 05/03/25 tablet Vomiting #60 tabs varenicline tartrate 1 mg tablet 1 mg PO BID #60 tabs 02/03/25 05/03/25 (Chantix) metoprolol tartrate 50 mg tablet 50 mg PO BID #180 tab s 02/08/25 05/03/25 gabapentin 300 mg capsule 300 mg PO BID #180 caps 02/1305/03/25 lorazepam 0.5 mg tablet 0.5 mg PO BID PRN anxiety an d 03/15/25 05/03/25 sleep #60 tabs esomeprazole magnesium 40 mg 40 mg PO QDAY 03/20/25 capsule,delayed release (Nexium) ezetimibe 10 mg tablet 10 mg PO QDAY #30 tabs 03/2005/03/25 prednisone 5 mg tablet 5 mg PO DAILY #90 tabs 03/2005/03/25 hydromorphone 1 mg/mL oral liquid 4 - 6 mg (4 - 6 mL) PO Q4-6H PRN 04/21/25 05/03/25 pain #473 mL vortioxetine 20 mg tablet 20 mg PO DAILY #90 tabs 01/0605/03/25 dicyclomine 10 mg capsule See Rx Instructions PO .COMP [place] 04/24/25 05/03/25 PRN abdominal pain #100 caps albuterol sulfate 90 mcg/actuation 1 puff inhalation Q 6H PRN 05/03/25 05/03/25 aerosol inhaler shortness of breath or wheez ing PHYSICAL EXAM AT DISCHARGE Vital Signs: Vital Signs x48h Temp Pulse Pulse Resp BP BP Pulse Ox 05/03/25 13:00 71 22 95 05/03/25 12:00 74 21 111/65 93 05/03/25 11:21 66 16 05/03/25 11:00 70 17 133/70 H 93 05/03/25 10:00 72 18 139/77 H 95 05/03/25 09:00 66 26 H 119/52 L 94 05/03/25 08:18 72 117/67 05/03/25 08:00 98.2 F 75 21 117/67 97 05/03/25 07:00 67 21 117/64 96 O2 Flow Rate 05/03/25 13:00 05/03/25 12:00 05/03/25 11:21 2 05/03/25 11:00 05/03/25 10:00 05/03/25 09:00 05/03/25 08:18 05/03/25 08:00 05/03/25 07:00 2 General Appearance: positive No acute distress and Alert Respiratory: positive Chest non-tender Cardiovascular: positive Regular rate & rhythm Abdomen: positive Tenderness (She says some amount of tenderness is baseline) Skin: positive Color nml Neurologic/Psychiatric: positive Oriented x3 LABS 05/03/25 04:29 05/03/25 11:40 FOLLOW UP Follow Up: With PCP, surgery TIME SPENT Time Spent in Discharge (Minutes): 35 Discharge Plan Discharge Patient Disposition: 01 Home, Self Care Condition: Good Prescriptions: Continued nystatin [Nyamyc] 100,000 unit/gram powder 1 applic topical BID Qty: 180 5RF Rx Instructions: Use bid prn to skin folds. (DME) BreatheRite MDI Spacer Spacer See Rx Instructions .Route Qty: 1 0RF Rx Instructions: As directed glimepiride 1 mg tablet 1 mg PO DAILY Qty: 90 3RF mupirocin [Centany] 2 % ointment 1 applic topical BID MDD 0.25g each nostril Qty: 15 0RF Rx Instructions: 0.25g is about one half finger tip of ointment. Use each nostril twice daily for 5 days. metoprolol tartrate 50 mg tablet 50 mg PO BID Qty: 180 5RF Rx Instructions: Take with 25 mg tablet = 75 mg. May take additional tablet if HR >150. lorazepam 0.5 mg tablet 0.5 mg PO BID PRN (Reason: anxiety and sleep) Qty: 60 0RF Patient Comments: Usually uses qhs dicyclomine 10 mg capsule See Rx Instructions PO .COMPLEX PRN (Reason: abdominal pain) Qty: 100 2RF Rx Instructions: 1-2 caps orally PRN; Lactobacillus acidoph-L.bulgar [Floranex] 1 million cell tablet 1 tab PO BID potassium chloride 10 mEq capsule, extended release 10 meq PO DAILY allopurinol 300 mg tablet 300 mg PO DAILY Patient Comments: in addition to the 100mg tablet furosemide [Lasix] 20 mg tablet 20 mg PO DAILY Rx Instructions: May take extra tablet every couple days for increased edema L-Methylfolate Forte 7.5-90.314 mg capsule 1 cap PO DAILY ascorbic acid (vitamin C) 500 mg capsule 500 mg PO DAILY albuterol sulfate 90 mcg/actuation HFA aerosol inhaler 1 puff INHALATION Q6H PRN (Reason: shortness of breath or wheezing) Patient Comments: INHALE 1 PUFF BY MOUTH FOUR TIMES DAILY NEEDED FOR SHORTNESS OF BREATH (DME) Permanent Disabled Placard Misc See Rx Instructions .Route Rx Instructions: As directed hydrocortisone 2.5 % cream 1 applic topical DAILY PRN (Reason: rash) aspirin 325 mg tablet,delayed release (DR/EC) 650 mg PO BID PRN (Reason: osteoarthritis) Rx Instructions: May take additional two doses (two tablets) for total of four doses daily Gummies (DHA-EPA) 180 mcg-32.5mg- 25 mg-7.5 mg tablet,chewable 1 tab PO Q OTHER DAY Qty: 180 0RF epinephrine [EpiPen] 0.3 mg/0.3 mL auto-injector 0.3 mg IM Q10M PRN (Reason: anaphylaxis) Qty: 2 3RF Rx Instructions: for 2 doses (DME) OneTouch Ultra Test Strip See Rx Instructions .Route Qty: 100 3RF Rx Instructions: One Touch [place] Test Strips. As directed Use twice a day varenicline tartrate [Chantix] 1 mg tablet 1 mg PO BID Qty: 60 1RF ondansetron 4 mg tablet,disintegrating 4 mg translingual TID PRN (Reason: Nausea / Vomiting) Qty: 60 2RF hydromorphone 1 mg/mL liquid 4 - 6 mg PO Q4-6H PRN (Reason: pain) Qty: 473 0RF cetirizine 10 mg tablet 10 mg PO QPM PRN (Reason: allergy symptoms) cholecalciferol (vitamin D3) 125 mcg (5,000 unit) capsule 125 mcg PO DAILY guaifenesin 1,200 mg tablet extended release 12hr 1,200 mg PO BID magnesium glycinate 120 mg capsule 120 mg PO BID gabapentin 300 mg capsule 300 mg PO BID Qty: 180 2RF esomeprazole magnesium [Nexium] 40 mg capsule,delayed release(DR/EC) 40 mg PO QDAY ezetimibe 10 mg tablet 10 mg PO QDAY Qty: 30 2RF prednisone 5 mg tablet 5 mg PO DAILY Qty: 90 2RF vortioxetine 20 mg tablet 20 mg PO DAILY Qty: 90 3RF Activity Restrictions: No Restrictions Diet: Regular Health Concerns: You came into the hospital with nausea, vomiting, diarrhea worse than normal. You have a very complex bowel. Your hernia was reduced in the ED, and a report to me that you are feeling much better today. You were held overnight because of several electrolyte derangements, which you have had a history of before due to your malabsorption. Since you are feeling better today, and your electrolytes have been repleted, I am discharging you home. I would like for you to follow-up with your PCP, as well as a general surgeon. We briefly discussed diet. I would like for you to follow the recommendations that your surgeon has given you. While I would like for you to have plenty of protein, I understand that some meats because GI upset for you. Print Language: Tajik Patient Instructions: Hypomagnesemia Dc Stand Alone Forms: PCP List Follow-up Care: Crystal Pollock MD [Primary Care Provider, Family Practice] Vitals documented within 30 minutes of discharge?: Yes
[2025-05-03 13:11] VITALS: O2SAT 95
[2025-05-03 14:39] VITALS: BP 116/78; TEMP 98.1
== END 2025-05-03 14:34 | disposition home or self-care (01) | DRG 641 ==
LOC: ED 20:42 → ICU 05-03 02:35
PROVIDERS: ADMIT Student in an Organized Health Care Education/Training Program; ATTEND Student in an Organized Health Care Education/Training Program
DX: E87.6 Hypokalemia; Z87.19 Personal history of other diseases of the digestive system; R19.7 Diarrhea, unspecified; R10.9 Unspecified abdominal pain; Z95.828 Presence of other vascular implants and grafts; R11.2 Nausea with vomiting, unspecified; K43.9 Ventral hernia without obstruction or gangrene; R53.81 Other malaise; Z79.82 Long term (current) use of aspirin; F11.21 Opioid dependence, in remission; Z98.890 Other specified postprocedural states; Z66 Do not resuscitate; E83.42 Hypomagnesemia; Z79.899 Other long term (current) drug therapy; E11.9 Type 2 diabetes mellitus without complications; E83.51 Hypocalcemia; G89.29 Other chronic pain; R73.9 Hyperglycemia, unspecified; K90.9 Intestinal malabsorption, unspecified; Z87.891 Personal history of nicotine dependence; R09.02 Hypoxemia